=== PATIENT | female | born 1980 | race Caucasian/White ===

== ENCOUNTER 2024-10-15 17:00 | Emergency (ER) | payer BC, SELFPAY ==
--- OUTSIDE RECORDS SUMMARY | 2020-11-19 10:00 | XMS_ITS | Encounter Summary ---
Author Organization [employer] Address [address] [place] [address] Care Team Providers Care Generator Switchboard Operator Name Role Phone Cyndie Eisenberg APRN, CNP Primary Care Provi cele Encounter Details Date Type Department Care Team (Latest Contact Info) Description 11/19/2020 10:00 AM CDT Hospital Encounter [facility] Outpatient Infusion & Procedures [address] [place] [id number] Cyndie Eisenberg APRN, CNP [address] [place] [id number] Encounter for central line care (Primary Dx); Invasive ductal carcinoma of breast, right ([facility]C) Social History Tobacco Use Types Packs/Day Years Used Date Smoking Tobacco: Former Cigarettes Q uit: 09/19/2009 Smokeless Tobacco: Never Alcohol Use Standard Drinks/Week Comments Not Currently 0 (1 standard drink = 0.6 oz pur e alcohol) rarely PHQ-2 Answer Date Recorded PHQ-2 Score 0 04/08/2022 Comments No Sex and Gender Information Value Date Recorded Sex Assigned at Female 12/23/2022 12:21 PM CDT Legal Sex Female 8:59 AM CDT Gender Identity Female 12/23/2022 12:21 PM CDT Sexual Orientation Not on file Occupation Industry Job Start Date Job End Date Not on file Not on file Not on file Not on file documented as of this encounter Last Filed Vital Signs Vital Sign Reading Time Taken Comments Blood Pressure 124/85 11/19/2020 10:53 AM CDT Pulse 73 11/19/2020 10:53 AM CDT Temperature 36.9 C (98.5 F) 11/19/2020 10:53 AM CDT Respiratory Rate 16 11/19/2020 10:53 AM CDT Oxygen Saturation 99% 11/19/2020 10:53 AM CDT Inhaled Oxygen Concentration - - Weight - - Height - - Body Mass Index - - documented in this encounter Plan of Treatment Not on file documented as of this encounter Visit Diagnoses Diagnosis Encounter for central line care- Primary Fitting and adjustment of vascular catheter Invasive ductal carcinoma of breast, right ([facility]) documented in this encounter Additional Health Concerns Infection Onset Date Last Indicated Resolved Time R/O COVID19 03/29/2021 03/29/2021 03/29/2021 2:53 PM CDT documented as of this encounter Care Teams Generator Switchboard Operator Relationship Specialty Start Date End Date Cyndie Eisenberg APRN, HYDRAULIC [employer]OCK DRILL OPERATOR [address] [place] [address] PCP - General Nurse Practitioner 09/10/19 05/28/21 documented as of this encounter
--- OUTSIDE RECORDS SUMMARY | 2020-11-19 10:00 | XMS_ITS | Encounter Summary ---
Author Organization [email or web address] Address [address] [place] [address] Care Team Providers Care Local Area Network Systems Adminstrator Name Role Phone Cyndie Eisenberg APRN, CNP Primary Care Provi cele Encounter Details Date Type Department Care Team (Latest Contact Info) Description 11/19/2020 10:00 AM CDT Hospital Encounter [facility] Outpatient Infusion & Procedures [address] [place] [phone] Cyndie Eisenberg APRN, CNP [address] [place] [address] Encounter for central line care (Primary Dx); [...] documented as of this encounter Care Teams Local Area Network Systems Adminstrator Relationship Specialty Start Date End Date Cyndie Eisenberg APRN, LOAN ADVISER [address] [place] [id number] PCP - General Nurse Practitioner 09/10/19 05/28/21 documented as of this encounter
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
--- OUTSIDE RECORDS SUMMARY | 2024-09-12 09:15 | XMS_ITS | Encounter Summary ---
Author Organization [facility] Address [address] [place] [address] Care Team Providers Care Night Time Babysitter Name Role Phone Cyndie Eisenberg NP Primary Care Provider + Rodney Natarajan MD Unavailable [phone] Luna Simons MD Unavailable Caroline Duque RN Unavailable [phone] Martha White MD Unavailable Ankita Park MD Unavailable [phone] Batool Atkinson PhD LP Unavailable Prisca Miller MD Unavailable Jennyfer Steele APRN SPINNER IRON Unavailable [phone] Jennyfer Steele APRN SPINNER IRON Unavailable [phone] [facility] Unavailabl e Luna Simons MD Unavailable Reason for Visit * Diagnostic Imaging Mammo (Routine) - Pending Review Specialty Diagnoses / Procedures Referred By Gus t Referred To Contact Radiology. Diagnoses Invasive ductal carcinoma of breast, right (H) Procedures MA Screen Bilateral w/Ashu Luna Simons MD [address] [facility] [address] [place] [address] Phone: tel: fax: Referral ID Status Reason Start Date Expiration Date V isits Requested Visits Authorized [id number] Pending Review 04/01/2024 04/01/2025 1 1 Encounter Details Date Type Department Care Team (Latest Contact Info) Description 09/12/2024 9:15 AM CDT Ancillary Procedure [facility] [place] [address] [facility] [address] 2nd [place] [address] Luna Simons MD [address] [place] [address] 480 [place] [address] Invasive ductal carcinoma of breast, right (H) Social History Tobacco Use Types Packs/Day Years [...] often do you attend chur ch or church services? More than 4 times per year 06/22/2023 Do you belong to any clubs o r organizations such as baptism groups, unions, fraternal or athletic groups, or [...] Answer Date Recorded PHQ-2 Score 0 09/10/2024 [place] of Occupat ional Health - Occupational Stress [...] Answer Date Recorded Do you have housing? (Housin g is defined as stable permanent housing and does not include staying outside in a car, in a tent, in an abandoned building, in an overnight longterm, or couch-surfing.) Yes 06/22/2023 Are you worried [...] on file documented as of this encounter Plan of Treatment Upcoming Encounters Date Type Department Care Team (Late st Contact Info) Description 09/15/2025 9:15 AM CDT Ancillary Procedure [facility] [place] [address] [place] [address] 2nd [place] [phone] Luna Simons MD [address] [place] [address] [id number] 09/15/2025 10:00 AM CDT Oncology Visit [facility] 9 [place] [phone] Luna Simons MD [address] [place] [id number] documented as of this encounter Procedures Procedure Name Priority Date/Time Associated Diagnosis Comments MA SCREENING BILATERAL W/ ASHU Routine 09/12/2024 9:31 AM CDT Invasive ductal carcinoma of breast, right (H) documented in this encounter Results * MA Screen Bilateral w/Ashu (09/12/2024 9:31 AM CDT) Anatomical Region Laterality Modality Breast Bilateral Mammography Impressions 09/12/2024 10:36 AM CDT IMPRESSION: ACR BI-RADS Category 1: Negative BREAST CANCER SCREENING RECOMMENDATION: Routine yearly mammography beginning at age 40 or as discussed with your provider. The results and recommendations of this examination will be communicated to the patient. Rachelle Unger MD Narrative 09/12/2024 10:36 AM CDT BILATERAL FULL FIELD DIGITAL SCREENING MAMMOGRAM WITH TOMOSYNTHESIS Performed on: 09/12/24 Compared to: 09/04/2023, 07/11/2022, 06/24/2021, and 06/03/2020 Technique: This study was evaluated with the assistance of Computer-Aided Detection. Breast Tomosynthesis was used in interpretation. Findings: The breasts are heterogeneously dense, which may obscure small masses. There is no radiographic evidence of malignancy. Luna Simons MD IMG MAMMOGRAPHY ORDERABLES Final Result documented in this encounter Visit Diagnoses Diagnosis Invasive ductal carcinoma of breast, right (H) documented in this encounter Additional Health Concerns Assessment Noted Time PHQ-9 Depression Total Score: 0 09/11/19 25 9:09 AM CDT documented as of this encounter Care Teams Night Time Babysitter Relationship Specialty Start Date End Date Cyndie Eisenberg NP [address] [place] [address] PCP - General 09/25/19 Rodney Natarajan MD 420 [facility] 195 [place], [place] 50[address] General Surgery 09/25/19 Luna Simons MD 420 [facility] 480 [place], [place] 330305 Hematology 09/25/19 Caroline Duque, RN Specialty Gum Machine Operator Breast Oncology 09/30/19 Mratha White MD [address] [place], [place] [phone] supervisor fish processing 11/01/19 Ankita Park MD 2450 [facility] 2[address]ST [place] [address] supervisor fish processing 06/10/20 Batool Atkinson, PhD LP 2450 [facility] [address] [place] [address] Psychologist Licensed Mental Health 04/01/22 Prisca Miller MD 516 [facility] 295 [place], [place] 4449[address] Resident Neurology 02/10/23 Jennyfer Steele APRN [employer] [address] [place] [address] [address] [place], [place] 8[address] Nurse Practitioner Psychiatry 02/23/23 Jennyfer Steele APRN [employer] [address] [place] [address] [address] [place], [place] 7[address]114 Assigned Behavioral Health Provider 06/30/23 [facility] [id number] [place] [address] Assigned PCP 09/19/23 Luna Simons MD [address] [place] [address] 480 [place], [place] [address]39[address] Assigned Cancer Care Provider 04/20/24 documented as of this encounter
--- OUTSIDE RECORDS SUMMARY | 2024-09-12 09:15 | XMS_ITS | Encounter Summary ---
Author Organization [facility] Address [address] [place] [address] Care Team Providers Care Stone Unloader Name Role Phone Cyndie Eisenberg NP Primary Care Provider + Rodney Natarajan MD Unavailable [phone] Luna Simons MD Unavailable Caroline Duque RN Unavailable [phone] Martha White MD Unavailable Ankita Park MD Unavailable [phone] Batool Atkinson PhD LP Unavailable Prisca Miller MD Unavailable [phone] Jennyfer Steele APRN BELLPERSON Unavailable [phone] Jennyfer Steele APRN BELLPERSON Unavailable [phone] [facility] Unavailabl e Luna Simons MD Unavailable Reason for Visit * Diagnostic Imaging Mammo (Routine) - Pending Review Specialty Diagnoses / Procedures Referred By Gus t Referred To Contact Radiology. Diagnoses Invasive ductal carcinoma of breast, right (H) Procedures MA Screen Bilateral w/Ashu Luna Simons MD [address] [facility] 480 [place] [address] Phone: tel: fax: Referral ID Status Reason Start Date Expiration Date V isits Requested Visits Authorized [id number] Pending Review 04/01/2024 04/01/2025 1 1 Encounter Details Date Type Department Care Team (Latest Contact Info) Description 09/12/2024 9:15 AM CDT Ancillary Procedure [facility] Imaging [place] [address] [facility] [address] 2nd [place] [address] Luna Simons MD [address] [place] [address] 480 [place] [address] Invasive ductal carcinoma of breast, [...] often do you attend chur ch or moravian services? More than 4 times per year 06/22/2023 Do you belong to any clubs o r organizations such as caodaism groups, unions, fraternal or athletic groups, or [...] Answer Date Recorded PHQ-2 Score 0 09/10/2024 [place] of Occupat ional Health - Occupational Stress [...] in an abandoned building, in an overnight snf, or couch-surfing.) Yes 06/22/2023 Are you worried [...] Description 09/15/2025 9:15 AM CDT Ancillary Procedure [facility] [place] [address] [place] [address] 2nd [place] [phone] Luna Simons MD [address] [place] [address] 09/15/2025 10:00 AM CDT Oncology Visit [facility] 9 [place] [phone] Luna Simons MD [address] [place] [address] documented as of this encounter Procedures Procedure [...] documented as of this encounter Care Teams Stone Unloader Relationship Specialty Start Date End Date Cyndie Eisenberg NP [address] [place] [address] PCP - General 09/25/19 Rodney Natarajan MD 420 [facility] 195 [place], [place] [address] General Surgery 09/25/19 Luna Simons MD 420 [facility] 480 [place], [place] [address] Hematology 09/25/19 Caroline Duque, RN Specialty Comb Fixer Breast Oncology 09/30/19 Martha White MD [address] [place], [place] [phone] blueprint cutter 11/01/19 Ankita Park MD 2450 [facility] [address] [address] blueprint cutter 06/10/20 Batool Atkinson, PhD LP 2450 [facility] [address] [place] [address] Psychologist Licensed Mental Health 04/01/22 Prisca Miller MD 516 [facility] 295 [place], [place] [address] Resident Neurology 02/10/23 Jennyfer Steele APRN BELLPERSON [address] [place] [address] [address] [place], [place] 501[address] Nurse Practitioner Psychiatry 02/23/23 Jennyfer Steele APRN BELLPERSON [address] [place] [address] [address] [place], [place] 812294 Assigned Behavioral Health Provider 06/30/23 [facility] [address] [place] [address] Assigned PCP 09/19/23 Luna Simons MD [address] [place] [address] 480 [place], [place] 8906[address] Assigned Cancer Care Provider 04/20/24 documented as of this encounter
--- OUTSIDE RECORDS SUMMARY | 2024-09-12 10:30 | XMS_ITS | Encounter Summary ---
Author Organization [facility] Address [address] [place] [address] Care Team Providers Care High Lift Operator Name Role Phone Cyndie Eisenberg NP Primary Care Provider + Rodney Natarajan MD Unavailable [phone] Luna Simons MD Unavailable [phone] Caroline Duque RN Unavailable [phone] Martha White MD Unavailable Ankita Park MD Unavailable [phone] Batool Atkinson PhD LP Unavailable Prisca Miller MD Unavailable [phone] Jennyfer Steele APRN VENEER DEPARTMENT MANAGER Unavailable [phone] Jennyfer Steele APRN VENEER DEPARTMENT MANAGER Unavailable [phone] [facility] Unavailabl e Luna Simons MD Unavailable [phone] Reason for Referral * Diagnostic Imaging Mammo (Routine) - Pending Review Specialty Diagnoses / Procedures Referred By Gus moreno Referred To Contact Radiology. Diagnoses Invasive ductal carcinoma of breast, right (H) Visit for screening mammogram Procedures MA Screening Bilateral w/ Ashu Luna Simons MD [address] [facility] [address] [place] [address] Phone: tel: fax: Referral ID Status Reason Start Date Expiration Date V isits Requested Visits Authorized [id number] Pending Review 09/12/2024 09/12/2025 1 1 Reason for Visit * Reason Comments Oncology Clinic Visit Invasive ductal ca rcinoma of breast, right Encounter Details Date Type Department Care Team (Late st Contact Info) Description 09/12/2024 10:30 AM CDT Oncology Visit [facility] [address] [place] [address] Luna Simons MD [address] [address] Invasive ductal carcinoma of breast, right (H) (Primary Dx); Visit for screening mammogram; Fatigue, unspecified type; Menopausal syndrome (hot flashes) Social History Tobacco Use Types Packs/Day Years [...] 06/22/2023 How often do you attend chur or yazidism services? More than 4 times per year 06/22/2023 Do you belong to any clubs o r organizations such as confucianism groups, unions, fraternal or athletic groups, or [...] Answer Date Recorded PHQ-2 Score 0 09/10/2024 [facility] Occupat ional Health - Occupational Stress [...] Sign Reading Time Taken Comments Blood Pressure 140/85 09/12/2024 11:03 AM CDT Pulse 84 09/12/2024 11:03 AM CDT Temperature 36.6 C (97.8 F) 09/12/2024 11:03 AM CDT Respiratory Rate 16 09/12/2024 11:0 3 AM CDT Oxygen Saturation 98% 09/12/2024 11: 03 AM CDT Inhaled Oxygen Concentration - - Weight 61.6 kg (135 lb 12.8 oz) 025 11:03 AM CDT Height - - Body Mass Index 24.06 04/01/2024 1:36 PM BRANCH OFFICE MANAGER documented in this encounter Progress Notes * Luna Simons MD - 09/12/2024 10:30 AM CDT Oncology outpatient clinic visit : Sep 12, 2024 Reason for Visit: follow up right breast cancer. Oncology HPI: Anjelica Matthew is a 43 year old premenopausal woman with T2N0, stage 2A right breast cancer ER + CA + Her2 +. She received 12 weeks of neoadjuvant Taxol, Herceptin, and Perjeta (started 10/01/19). Sheunderwent a lumpectomy and sentinel lymph node biopsy on 01/21/20. Pathology revealed no invasive disease, DCIS Grade 3. She completed adjuvant herceptin. She had a BSO and is on no other endocrine therapy after many conversations reviewing the pros and cons. Treatment Summary: Radiation Oncology - Course: 1 Protocol: Treatment Site Current Dose Modality From To Elapsed Days Fx. 1 R Breast 4,240 cGy 6X/10X 03/05/2020 03/27/2020 22 16 1 R Breast Boost 1,250 cGy 6X/10X 03/30/2020 04/03/2020 4 5 Dose per Fraction: 265 cGy for R beast; 250 cGy for boost Total Dose: 5490 cGy Interval history: Anjelica returns today for follow up. She is going through a divorce; it has been very challenging. She continues to be very busy as a mom. Her kids are growing and thriving. She has been working with a counselor given the stress of her divorce and her cancer diagnosis. Shedid DBT for prior trauma. All of this helps her a lot. She has continued with it as has her children. The counselor is carlos based, and this is helping a lot for her. She is mentally doing well, and is thrilled she has had no measurable cancer. She has no nodules or masses. No axillary adenopathy. She has no fatigue. She feels well otherwise. Weight stable. Follows Dr. Steele closely. She is doing self exams and this is stable. ROS: 10 point ROS neg other than the symptoms noted above in the HPI. No Known Allergies Exam: Last menstrual period 04/23/2020. GENERAL: alert and no distress EYES: Eyes grossly normal to inspection. No discharge or erythema, or obvious scleral/conjunctival abnormalities. RESP: No audible wheeze, cough, or visible cyanosis. CV: rrr Abd: soft, nt nd _ bs No axillary adenopathy SKIN: Visible skin clear. No significant rash, abnormal pigmentation or lesions. NEURO: Cranial nerves grossly intact. Mentation and speech appropriate for age. PSYCH: Appropriate affect, tone, and pace of words Imaging: Breast Mammogram 09/12/2024 benign Assessment/plan: #Breast Cancer - - She is close to 5 years out since lumpectomy and completed adjuvant radiation and herceptin. She has no signs or symptoms of recurrence on exam today. Screening mammogram in August 2024 benign. I discussed she has no s/s of recurrence today. She remains on active surveillance with annual H&P and mammograms Mood is stable. She will continue to follow with her psychologist and psychiatrist. She is on Adderall and Cymbalta. Hot flashes Stable Follow up -RTC in 12 months ; Repeat screening mammogram in August 2025. Luna Simons MD documented in this encounter Nursing Notes * Mariposa Linares - 09/12/2024 10:30 AM CDT Oncology Rooming Note September 12, 2024 11:07 AM Anjelica Matthew is a 43 year old female who presents for: Chief Complaint Patient presents with Oncology Clinic Visit Invasive ductal carcinoma of breast, right Initial Vitals: BP (!) 140/85 (BP Location: Right arm, Patient Position: Sitting, Cuff Size: Adult Regular) Pulse 84 Temp 97.8 ??F (36.6 ??C) (Oral) Resp 16 Wt 61.6 kg (135 lb 12.8 oz) LMP 04/23/2020 SpO2 98% BMI 24.06 kg/m?? Estimated body mass index is 24.06 kg/m?? as calculated from the following: Height as of 04/01/24: 1.6 m (5' 3). Weight as of this encounter: 61.6 kg (135 lb 12.8 oz). Body surface area is 1.65 meters squared. No Pain (0) Comment: Data Unavailable Patient's last menstrual period was 04/23/2020. Allergies reviewed: Yes Medications reviewed: Yes Medications: Medication refills not needed today. Pharmacy name entered into Snapsort: [id number] [place], [place] - [address] [facility] [place] - [address] [facility] Frailty Screening: Is the patient here for a new oncology consult visit in cancer care? 2. No PHQ9: Did this patient require a PHQ9?: No Clinical concerns: none Mariposa Linares documented in this encounter Plan of Treatment Upcoming Encounters Date Type Department Care Team (Late st Contact Info) Description 09/15/2025 9:15 AM CDT Ancillary Procedure [facility] Breast Center Imaging [address] 2nd [place] [address] Luna Simons MD [address] [place] [address] [id number] 09/15/2025 10:00 AM CDT Oncology Visit [facility] 9 [place] [phone] Luna Simons MD 420 [facility] 480 [place], [place] 928595 Scheduled Orders Name Type Priority Associated Diagnoses Orde r Schedule MA Screening Bilateral w/ Ashu Imaging Routine Invasive ductal carcinoma of breast, right (H) Visit for screening mammogram Expected: 09/12/2025 (Approximate), Expires: 09/12/2025 documented as of this encounter Visit Diagnoses Diagnosis Invasive ductal carcinoma of breast, right (H)- Primary Visit for screening mammogram Other screening mammogram Fatigue, unspecified type Menopausal syndrome (hot flashes) Symptomatic menopausal or female climacteric states documented in this encounter Additional Health Concerns Assessment Noted Time PHQ-9 Depression Total Score: 0 09/11/19 25 9:09 AM CDT documented as of this encounter Care Teams High Lift Operator Relationship Specialty Start Date End Date Cyndie Eisenberg NP 100 [place] [address] PCP - General 09/25/19 Rodney Natarajan MD 420 [facility] 195 [place], [place] [phone] General Surgery 09/25/19 Luna Simons MD 420 [facility] 480 [place], [place] 9[address] Hematology 09/25/19 Caroline Duque, RN Specialty Molder Foam Rubber Breast Oncology 09/30/19 Martha White MD [facility] [address] [place], [place] [address] textile clothing and footwear mechanic 11/01/19 Ankita Park MD [address] [place] [address] [phone] textile clothing and footwear mechanic 06/10/20 [place] [address] [place], [place] [address] [place] [address] Psychologist Licensed Mental Health 04/01/22 Prisca Miller MD 516 [facility] 295 [place], [place] 7[address]35 Resident Neurology 02/10/23 Jennyfer Steele APRN VENEER DEPARTMENT MANAGER [address] [place] [address] Nurse Practitioner Psychiatry 02/23/23 Jennyfer Steele APRN VENEER DEPARTMENT MANAGER [address] [place] [address] [phone] Assigned Behavioral Health Provider 06/30/23 [facility] [id number] [place] [address] Assigned PCP 09/19/23 Luna Simons MD 420 [facility] 480 [place], [place] 926865 Assigned Cancer Care Provider 04/20/24 documented as of this encounter
--- OUTSIDE RECORDS SUMMARY | 2024-09-12 10:30 | XMS_ITS | Encounter Summary ---
Author Organization [facility] Address [address] [place] [address] Care Team Providers Care Hazardous Materials Handler Name Role Phone Cyndie Eisenberg NP Primary Care Provider + Rodney Natarajan MD Unavailable [phone] Luna Simons MD Unavailable Caroline Duque RN Unavailable [phone] Martha White MD Unavailable Ankita Park MD Unavailable Batool Atkinson PhD LP Unavailable Prisca Miller MD Unavailable Jennyfer Steele APRN HEALTH SERVICE COORDINATOR Unavailable [phone] Jennyfer Steele APRN HEALTH SERVICE COORDINATOR Unavailable [phone] [facility] Unavailabl e Luna Simons MD Unavailable [phone] Reason for Referral * Diagnostic Imaging Mammo (Routine) - Pending Review Specialty Diagnoses / Procedures Referred By Gus moreno Referred To Contact Radiology. Diagnoses Invasive ductal carcinoma of breast, right (H) Visit for screening mammogram Procedures MA Screening Bilateral w/ Ashu Luna Simons MD [address] [facility] [address] [place] [address] Phone: tel: fax: Referral ID Status Reason Start Date Expiration Date V isits Requested Visits Authorized [id number] Pending Review 09/12/2024 09/12/2025 1 1 Reason for Visit * Reason Comments Oncology Clinic Visit Invasive ductal ca rcinoma of breast, right Encounter Details Date Type Department Care Team (Late st Contact Info) Description 09/12/2024 10:30 AM CDT Oncology Visit [facility] [address] [place] [address] Luna Simons MD [address] [address] Invasive ductal carcinoma of breast, [...] How often do you attend chur or yazidi services? More than 4 times per year 06/22/2023 Do you belong to any clubs o r organizations such as baptist groups, unions, fraternal or athletic groups, or [...] Answer Date Recorded PHQ-2 Score 0 09/10/2024 [facility] of Occupat ional Health - Occupational [...] Body Mass Index 24.06 04/01/2024 1:36 PM DIGITAL ADVERTISING ANALYST documented in this encounter Progress Notes * Luna Simons MD - 09/12/2024 10:30 AM CDT Oncology outpatient clinic visit : Sep 12, 2024 Reason for Visit: follow up right breast cancer. Oncology HPI: Anjelica Matthew is a 43 year old premenopausal woman with T2N0, stage 2A right breast cancer ER + SC + Her2 +. She received 12 weeks [...] not needed today. Pharmacy name entered into N[employer] Discovery: [id number] - [place], [place] - [address] [facility] [place], [place] - [address] [facility] Frailty Screening: Is the patient here for a new oncology consult visit in cancer care? 2. No PHQ9: Did this patient require a PHQ9?: No Clinical concerns: none Mariposa Linares documented in this encounter Plan of Treatment Upcoming Encounters Date Type Department Care Team (Late st Contact Info) Description 09/15/2025 9:15 AM CDT Ancillary Procedure [facility] Breast Center Imaging [address] 2nd [place] [address] Luna Simons MD [address] [place] [address] [phone] 09/15/2025 10:00 AM CDT Oncology Visit [facility] 9 [place] [phone] Luna Simons MD 420 [facility] 480 [place], [place] 39[address]95 Scheduled Orders Name Type Priority Associated Diagnoses [...] documented as of this encounter Care Teams Hazardous Materials Handler Relationship Specialty Start Date End Date Cyndie Eisenberg NP 100 [place] [address] PCP - General 09/25/19 Rodney Natarajan MD 420 [facility] 195 [place], [place] 546025 General Surgery 09/25/19 Luna Simons MD 420 [facility] [address] [place], [place] 929765 Hematology 09/25/19 Caroline Duque, RN Specialty Optical Mechanic Apprentice Breast Oncology 09/30/19 Martha White MD [facility] [address] [place], [place] 37[address]34 pharmaceutical compounding supervisor 11/01/19 Ankita Park MD [address] [place] [address] [phone] pharmaceutical compounding supervisor 06/10/20 [place] [address] [place], [place] 53[address] [place] [address] Psychologist Licensed Mental Health 04/01/22 Prisca Miller MD 516 [facility] 295 [place], [place] [address]195 Resident Neurology 02/10/23 Jennyfer Steele APRN HEALTH SERVICE COORDINATOR [address] [place] [address] Nurse Practitioner Psychiatry 02/23/23 Jennyfer Steele APRN HEALTH SERVICE COORDINATOR [address] [place] [address] 394954 Assigned Behavioral Health Provider 06/30/23 [facility] [address] [place] [address] Assigned PCP 09/19/23 Luna Simons MD 420 [facility] [address] [place], [place] [address] Assigned Cancer Care Provider 04/20/24 documented as of this encounter
--- OUTSIDE RECORDS SUMMARY | 2024-10-15 17:05 | XMS_ITS | Encounter Summary ---
Author Organization [facility] Address [address] [place] [address] Care Team Providers Care Mains And Service Supervisor Name Role Phone Cyndie Eisenberg NP Primary Care Provider + Rodney Natarajan MD Unavailable [phone] Luna Simons MD Unavailable Caroline Duque RN Unavailable [phone] Martha White MD Unavailable [phone] Rodney Natarajan MD Unavailable [phone] Ankita Park MD Unavailable [phone] Ankita Park MD Unavailable [phone] Jose Zaragoza NP Unavailable Mio Mclean MD Unavailable [phone] Luna Simons MD Unavailable [phone] Nadja Hagen MD Unavailable [phone] Batool Atkinson PhD LP Unavailable [phone] Prisca Miller MD Unavailable [phone] Jennyfer Steele APRN INDUSTRIAL PHARMACIST Unavailable [phone] Jennyfer Steele APRN INDUSTRIAL PHARMACIST Unavailable + Sadaf Apple NP Unavailable Unavailable [facility] Unavailabl e Yamel Saha PA-C Unavailable Luna Simons MD Unavailable Encounter Details Date Type Department Care Team (Late st Contact Info) Description 08/03/2021 MyC Medical Advice [facility] Mental Health & Addiction [address] [address] Ankita Park MD 2120 [facility] [place] [address] Anxiety (Primary Dx) Social History Tobacco Use Types Packs/Day Years Used Date Smoking Tobacco: Never Cigarettes Smokeless Tobacco: Never Alcohol Use Standard Drinks/Week Comments Yes 0 (1 standard drink = 0.6 oz pur e alcohol) rare PHQ-2 Answer Date Recorded PHQ-2 Score 4 07/13/2021 Comments No Sex and Gender Information Value Date Recorded Sex Assigned at Not on file Legal Sex Female 9:05 AM CDT Gender Identity Not on file Sexual Orientation Not on file documented as of this encounter Plan of Treatment Upcoming Encounters Date Type Department Care Team (Late st Contact Info) Description 09/15/2025 9:15 AM CDT Ancillary Procedure [facility] Breast Center Imaging [address] 2nd [place] [phone] Luna Simons MD [address] [place] [address] 09/15/2025 10:00 AM CDT [facility] [address] [place] [address] Luna Simons MD [address] [place] [address] [phone] documented as of this encounter Visit Diagnoses Diagnosis Anxiety- Primary Anxiety state, unspecified documented in this encounter Additional Health Concerns Infection Onset Date Last Indicated Resolved Time Rule Out COVID-19 01/24/2023 01/24/2023 01/24/2023 10:32 PM CDT Assessment Noted Time PHQ-9 Depression Total Score: 12 022 8:00 AM OUTPLACEMENT CONSULTANT documented as of this encounter Care Teams Mains And Service Supervisor Relationship Specialty Start Date End Date Cyndie Eisenberg SOIL SCIENCE PROFESSOR [address] [place] [address] PCP - General 09/25/19 Rodney Natarajan MD 420 [facility] 195 [place], [place] 523295 General Surgery 09/25/19 Luna Simons MD 420 [facility] 480 [place], [place] 76[address]95 Hematology 09/25/19 Caroline Duque, ASHLIE Specialty Lan Support Specialist Breast Oncology 09/30/19 Martha White MD [facility] [address] [place], [place] [phone] editing clerk 11/01/19 Rodney Natarajan MD [address] 210635 Assigned Surgical Provider 03/20/20 08/07/21 Ankita Park MD [facility] [address] [address] Assigned Behavioral Health Provider 05/03/20 06/29/23 Ankita Park MD [facility] [address] [address] editing clerk 06/10/20 Jose Zaragoza, SOIL SCIENCE PROFESSOR [address] [place], [place] 927945 Assigned Heart and Vascular Provider 11/08/20 02/04/22 Mio Mclean MD 420 [facility] 494 [place], [place] [address] Assigned Cancer Care Provider 06/27/21 09/11/21 Luna Simons MD 420 [facility] 480 [place], [place] [address]455 Assigned Cancer Care Provider 09/12/21 01/18/24 Nadja Hagen MD [address] [place] [address] [address] 2, [address] [place], [place] 732254 Resident Psychiatry 04/01/22 05/13/24 Batool Atkinson, PhD LP 2450 [facility] [address] [place], [place] 852784 Psychologist Licensed Mental Health 04/01/22 Prisca Miller MD 6 [facility] 295 [place], [place] 8[address]395 Resident Neurology 02/10/23 Jennyfer Steele APRN INDUSTRIAL PHARMACIST [facility] S [address] [place] [address] 544604 Nurse Practitioner Psychiatry 02/23/23 Jennyfer Steele APRN INDUSTRIAL PHARMACIST [facility] [address] [place] [address] 313944 Assigned Behavioral Health Provider 06/30/23 Sadaf Apple NP Assigned PCP 07/21/23 09/18/23 [facility] [address] [place] [address] Assigned PCP 09/19/23 Yamel Saha PA-C [address] [place] [address] 973725 Assigned Cancer Care Provider 01/19/24 04/19/24 Luna Simons MD [address] [place] [address] 579265 Assigned Cancer Care Provider 04/20/24 documented as of this encounter
--- OUTSIDE RECORDS SUMMARY | 2024-10-15 17:05 | XMS_ITS | Encounter Summary ---
Author Organization [facility] Address [address] [place] [address] Care Team Providers Care Senior Interactive Producer Name Role Phone Cyndie Eisenberg NP Primary Care Provider + Rodney Natarajan MD Unavailable [phone] Luna Simons MD Unavailable [phone] Caroline Duque RN Unavailable [phone] Martha White MD Unavailable Ankita Park MD Unavailable [phone] Batool Atkinson PhD LP Unavailable Prisca Miller MD Unavailable Jennyfer Steele APRN SONOGRAPHY TECHNICIAN Unavailable [phone] Jennyfer Steele APRN SONOGRAPHY TECHNICIAN Unavailable [phone] [facility] Unavailabl e Luna Simons MD Unavailable [phone] Encounter Details Date Type Department Care Team (Late st Contact Info) Description 09/17/2024 Cortney Loomis [facility] Mental Health & Addiction [address] [address] Talita Bradshaw Social History Tobacco Use Types Packs/Day Years [...] How often do you attend chur or yarsani services? More than 4 times per year 06/22/2023 Do you belong to any clubs o r organizations such as mormon groups, unions, fraternal or athletic groups, or [...] Answer Date Recorded PHQ-2 Score 0 09/10/2024 [facility] of Occupat ional Health - Occupational [...] Date Recorded Do you have housing? (Gurpreet funk is defined as stable permanent housing and does not include staying outside in a car, in a tent, in an abandoned building, in an overnight senior care, or couch-surfing.) Yes 06/22/2023 Are you worried [...] Description 09/15/2025 9:15 AM CDT Ancillary Procedure [facility] Breast Center Imaging [place] [phone] [facility] 2nd [place] [address] Luna Simons MD [address] [place] [address] 09/15/2025 10:00 AM CDT Oncology Visit [facility] 909 [place] [address] Luna Simons MD 420 [facility] 480 [place], [place] 995735 documented as of this encounter Visit Diagnoses Not on filedocumented in this encounter Additional Health Concerns Assessment Noted Time PHQ-9 Depression Total Score: 0 09/11/19 25 9:09 AM CDT documented as of this encounter Care Teams Senior Interactive Producer Relationship Specialty Start Date End Date Cyndie Eisenberg NP [address] [place] [address] PCP - General 09/25/19 Rodney Natarajan MD 420 [facility] 195 [place], [place] 98[address] General Surgery 09/25/19 Luna Simons MD 420 [facility] 480 [place], [place] 792065 Hematology 09/25/19 Caroline Duque, RN Specialty Content Development Manager Breast Oncology 09/30/19 Martha White MD [address] [place], [place] [address]34 noc engineer 11/01/19 Ankita Park MD 2450 [facility] [address] [phone] noc engineer 06/10/20 Batool Atkinson, PhD LP 2450 [facility] [address] [place] [address] Psychologist Licensed Mental Health 04/01/22 Prisca Miller MD 516 [facility] 295 [place] [address] Resident Neurology 02/10/23 Jennyfer Steele APRN SONOGRAPHY TECHNICIAN [address] [place] [address] [address]275 [place] [address] Nurse Practitioner Psychiatry 02/23/23 Jennyfer Steele APRN SONOGRAPHY TECHNICIAN [facility]2 [address] [place] [address] [address] [place], [place] [address] Assigned Behavioral Health Provider 06/30/23 [facility] [id number] [place] [address] Assigned PCP 09/19/23 Luna Simons MD [address] [place] [address] 480 [place], [place] 9[address]35 Assigned Cancer Care Provider 04/20/24 documented as of this encounter
--- OUTSIDE RECORDS SUMMARY | 2024-10-15 17:05 | XMS_ITS | Encounter Summary ---
Author Organization [place] Address [address] [place] [address] Care Team Providers Care Body Repairer Name Role Phone Cyndie Eisenberg NP Primary Care Provider + Rodney Natarajan MD Unavailable Luna Simons MD Unavailable [phone] Caroline Duque RN Unavailable [phone] Martha White MD Unavailable Ankita Park MD Unavailable [phone] Luna Simons MD Unavailable Nadja Hagen MD Unavailable [phone] Batool Atkinson PhD LP Unavailable Prisca Miller MD Unavailable [phone] Jennyfer Steele APRN SANITATION ASSOCIATE Unavailable +[phone] Jennyfer Steele APRN SANITATION ASSOCIATE Unavailable [phone] Sadaf Apple NP Unavailable Unavailable [facility] Unavailabl e Yamel Saha PA-C Unavailable +[phone] Luna Simons MD Unavailable [phone] Encounter Details Date Type Department Care Team (Late st Contact Info) Description 08/11/2023 MyC Medical Advice [facility] Cancer [place] [address] [place] [address] Sandra Modi, ASHLIE Social History Tobacco Use Types Packs/Day Years [...] How often do you attend chur or sabianism services? More than 4 times per year 06/22/2023 Do you belong to any clubs o r organizations such as orthodoxy groups, unions, fraternal or athletic groups, or [...] PHQ-2 Answer Date Recorded PHQ-2 Score 0 06/22/2023 [facility] of Occupat ional Health - Occupational Stress [...] in an abandoned building, in an overnight usp, or couch-surfing.) Yes 06/22/2023 Are you worried [...] Description 09/15/2025 9:15 AM CDT Ancillary Procedure [facility] Breast Center Imaging [place] [address] [facility] [address] 2nd [place] [address] Luna Simons MD [address] [place] [address] 09/15/2025 10:00 AM CDT Oncology Visit [facility] 909 [place] [phone] Luna Simons MD 420 [facility] 480 [place] [address] documented as of this encounter Visit Diagnoses Not on filedocumented in this encounter Additional Health Concerns Assessment Noted Time PHQ-9 Depression Total Score: 0 06/22/19 24 4:03 PM CLIENT CUSTOMER MANAGER documented as of this encounter Care Teams Body Repairer Relationship Specialty Start Date End Date Cyndie Eisenberg RADIO INTERFERENCE TROUBLE SHOOTER [address] [facility] [place] [address] PCP - General 09/25/19 Rodney Natarajan MD 420 [facility] 195 [place], [place] 371025 General Surgery 09/25/19 Luna Simons MD [address] [place] [address] [phone] Hematology 09/25/19 Caroline Duque, RN Specialty Sleever Breast Oncology 09/30/19 Martha White MD [address] [place], [place] [address] infusion nurse 11/01/19 Ankita Park MD [address] [place] [phone] infusion nurse 06/10/20 Luna Simons MD [address] [place] [address] 480 [place] [address] Assigned Cancer Care Provider 09/12/21 01/18/24 Nadja Hagen MD [address] [place] [address] Floor 2, [address] [place] [address] Resident Psychiatry 04/01/22 05/13/24 Batool Atkinson, PhD LP [address] [place] [address] [address] [place], [place] 082324 Psychologist Licensed Mental Health 04/01/22 Prisca Miller MD 6 [facility] 295 [place], [place] 053865 Resident Neurology 02/10/23 Jennyfer Steele APRN SANITATION ASSOCIATE [address] [place] [address], [place] [address] [place], [place] 543744 Nurse Practitioner Psychiatry 02/23/23 Jennyfer Steele APRN SANITATION ASSOCIATE [address] [place] [address] [address] [place] [address] Assigned Behavioral Health Provider 06/30/23 Sadaf Apple NP Assigned PCP 07/21/23 09/18/23 [facility] [address] [place] [address] Assigned PCP 09/19/23 Yamel Saha PA-C [address] [place] [address] 480 [place] [address] Assigned Cancer Care Provider 01/19/24 04/19/24 Luna Simons MD [address] 414445 Assigned Cancer Care Provider 04/20/24 documented as of this encounter
--- OUTSIDE RECORDS SUMMARY | 2024-10-15 17:05 | XMS_ITS | Encounter Summary ---
Author Organization [place] Address [address] [place] [address] Care Team Providers Care Career Transition Specialist Name Role Phone Cyndie Eisenberg NP Primary Care Provider + Rodney Natarajan MD Unavailable [phone] Luna Simons MD Unavailable [phone] Caroline Duque RN Unavailable [phone] Martha White MD Unavailable [phone] Ankita Park MD Unavailable [phone] Ankita Park MD Unavailable [phone] Luna Simons MD Unavailable [phone] Nadja Hagen MD Unavailable [phone] Batool Atkinson PhD LP Unavailable [phone] Prisca Miller MD Unavailable [phone] Jennyfer Steele APRN WOMEN'S MINISTRY DIRECTOR Unavailable +[phone] Jennyfer Steele APRN WOMEN'S MINISTRY DIRECTOR Unavailable + [phone] Sadaf Apple NP Unavailable Unavailable [facility] Unavailabl e Yamel Saha PA-C Unavailable [phone] Luna Simons MD Unavailable [phone] Encounter Details Date Type Department Care Team (Late st Contact Info) Description 04/06/2023 MyC Medical Advice [facility] Mental Health & Addiction [address] [phone] Ankita Park MD [address] [place] [address] Social History Tobacco Use Types Packs/Day Years Used Date Smoking Tobacco: Never Smokeless Tobacco: Never Alcohol Use Standard Drinks/Week Comments Yes 0 (1 standard drink = 0.6 oz pur e alcohol) rare PHQ-2 Answer Date Recorded PHQ-2 Score 0 03/30/2023 Adolescent Education Answer Date Record ed Getting School Help Needed Not on file 02/17 Comments No Sex and Gender Information Value Date Recorded Sex Assigned at Not on file Legal Sex Female 9:05 AM CDT Gender Identity Not on file Sexual Orientation Not on file documented as of this encounter Plan of Treatment Upcoming Encounters Date Type Department Care Team (Late st Contact Info) Description 09/15/2025 9:15 AM CDT Ancillary Procedure [facility] Breast Center Imaging [place] [address] [place] [address] 2nd [place] [address] Luna Simons MD [address] [place] [address] 167[address] 09/15/2025 10:00 AM CDT Oncology Visit [facility] 909 [place] [address] Luna Simons MD [address] [place] [address] 098375 documented as of this encounter Visit Diagnoses Not on filedocumented in this encounter Additional Health Concerns Assessment Noted Time PHQ-9 Depression Total Score: 22 022 3:25 PM PLASTIC TOP ASSEMBLER documented as of this encounter Care Teams Career Transition Specialist Relationship Specialty Start Date End Date Cyndie Eisenberg NP [address] [place] [address] PCP - General 09/25/19 Rodney Natarajan MD 420 [facility] 195 [place] [address] General Surgery 09/25/19 Luna Simons MD 420 [facility] 480 [place] [address] MD Hematology 09/25/19 Caroline Duque, ASHLIE Specialty Finisher Special Stocks Breast Oncology 09/30/19 Martha White MD [address] [place] [address] [place], [place] 254774 airline attendant 11/01/19 Ankita Park MD [address] [place] [address] Assigned Behavioral Health Provider 05/03/20 06/29/23 Ankita Park MD [address] [place] [address] airline attendant 06/10/20 Luna Simons MD [address] [place] [address] 480 [place], [place] 989605 Assigned Cancer Care Provider 09/12/21 01/18/24 Nadja Hagen MD [address] Floor 2, [address] [place], [place] 4367[address] Resident Psychiatry 04/01/22 05/13/24 Batool Atkinson, PhD LP 2450 [facility] [address] [place], [place] 804494 Psychologist Licensed Mental Health 04/01/22 Prisca Miller MD 6 [facility] 295 [place], [place] 8938[address] Resident Neurology 02/10/23 Jennyfer Steele APRN WOMEN'S MINISTRY DIRECTOR [address] [place] [address] [address] [place] [address] Nurse Practitioner Psychiatry 02/23/23 Jennyfer Steele APRN WOMEN'S MINISTRY DIRECTOR [address] [place] [address] Assigned Behavioral Health Provider 06/30/23 Sadaf Apple NP Assigned PCP 07/21/23 09/18/23 [facility] [address] [place] [address] Assigned PCP 09/19/23 Yamel Saha PA-C [address] [place] [address] 480 [place], [place] 647375 Assigned Cancer Care Provider 01/19/24 04/19/24 Luna Simons MD [address] [address] Assigned Cancer Care Provider 04/20/24 documented as of this encounter
--- OUTSIDE RECORDS SUMMARY | 2024-10-15 17:05 | XMS_ITS | Encounter Summary ---
Author Organization [place] Address [address] [place] [address] Care Team Providers Care Science Consultant Name Role Phone Cyndie Eisenberg NP Primary Care Provider + Rodney Natarajan MD Unavailable [phone] Luna Simons MD Unavailable [phone] Caroline Duque RN Unavailable [phone] Martha White MD Unavailable [phone] Ankita Park MD Unavailable [phone] Ankita Park MD Unavailable [phone] Jose Zaragoza NP Unavailable [phone] Luna Simons MD Unavailable Nadja Hagen MD Unavailable [phone] Batool Atkinson PhD LP Unavailable [phone] Prisca Miller MD Unavailable [phone] Jennyfer Steele APRN TELESCOPE REPAIRER Unavailable +[phone] Jennyfer tSeele APRN TELESCOPE REPAIRER Unavailable +[phone] Sadaf Apple NP Unavailable Unavailable [facility] Unavailabl e Yamel Saha PA-C Unavailable [phone] Luna Simons MD Unavailable Reason for Visit * Reason Onset Date Comments Refill Request 09/23/2021 Encounter Details Date Type Department Care Team ([facility] Contact Info) Description 09/23/[address] [facility] Mental Health & Addiction [address] [address] Ankita Park MD [address] [place] [address] [place], [place] [address] Refill Request Social History Tobacco Use Types Packs/Day Years [...] on file documented as of this encounter Miscellaneous Notes * Telephone Encounter - J Luis Hall RN - 09/23/2021 2:41 PM CDT Pt requesting refill of methylphenidate (METADATE CD) 10 MG CR capsule via [employer]. Patient's pharmacy has a prescription effective 09/22/21. [id number] [address] Re Etcher notified patient via [employer] message. documented in this encounter Plan of Treatment Upcoming Encounters Date Type Department Care Team (Late Contact Info) Description 09/15/2025 9:15 AM CDT Ancillary Procedure [facility] Breast Center Imaging [place] 909 [facility] SE 2nd [place] [address] Luna Simons MD 420 [facility] 480 [place] [address] 09/15/2025 10:00 AM CDT Oncology Visit [facility] 909 [place] [phone] Luna Simons MD 420 [facility] 480 [place], [place] 6[address] documented as of this encounter Visit Diagnoses Diagnosis Cognitive complaints Other signs and symptoms involving cognition documented in this encounter Additional Health Concerns Infection Onset Date Last Indicated Resolved Time Rule Out COVID-19 01/24/2023 01/24/2023 01/24/2023 10:32 PM CDT Assessment Noted Time PHQ-9 Depression Total Score: 12 022 8:00 AM FROG FARMER documented as of this encounter Care Teams Science Consultant Relationship Specialty Start Date End Date Cyndie Eisenberg NP 100 [place] [address] PCP - General 09/25/19 Rodney Natarajan MD [address] [place] [address] 195 [place], [place] 6[address] General Surgery 09/25/19 Luna Simons MD 420 [facility] 480 [place], [place] 2[address] Hematology 09/25/19 Caroline Duque, RN Specialty Hammersmith Helper Breast Oncology 09/30/19 aMrtha White MD [facility] [address] [place] [address] manager user experience 11/01/19 Ankita Park MD [address] [place] [phone] Assigned Behavioral Health Provider 05/03/20 06/29/23 Ankita Park MD 2450 [facility] 2[place] [phone] manager user experience 06/10/20 Jose Zaragoza, BOOK CANVASSER [address] [facility] [place] [address] Assigned Heart and Vascular Provider 11/08/20 02/04/22 Luna Simons MD [address] [place] [address] 480 [place], [place] 17364[address] Assigned Cancer Care Provider 09/12/21 01/18/24 Nadja Hagen MD [address] [place] [address] Floor 2, [address] [place], [place] 101[address] Resident Psychiatry 04/01/22 05/13/24 Batool Atkinson, PhD LP [facility]0 [facility] [address] [place], [place] 9[address] Psychologist Licensed Mental Health 04/01/22 Prisca Miller MD 6 [facility] 295 [place], [place] [address] Resident Neurology 02/10/23 Jennyfer Steele APRN TELESCOPE REPAIRER [facility] S [facility] [address] [place] [address] Nurse Practitioner Psychiatry 02/23/23 Jennyfer Steele APRN TELESCOPE REPAIRER [facility] S [address] [place] [address] [address] [place] [address] Assigned Behavioral Health Provider 06/30/23 Sadaf Apple NP Assigned PCP 07/21/23 09/18/23 [facility] [address] [place] [address] Assigned PCP 09/19/23 Yamel Saha PA-C [address] 0890[address] Assigned Cancer Care Provider 01/19/24 04/19/24 Luna Simons MD [address] 809785 Assigned Cancer Care Provider 04/20/24 documented as of this encounter
--- OUTSIDE RECORDS SUMMARY | 2024-10-15 17:05 | XMS_ITS | Encounter Summary ---
Author Organization [facility] Address [address] [place] [address] Care Team Providers Care Vocational Placement Specialist Name Role Phone Lucita French MD Primary Care Provider Encounter Details Date Type Department Care Team (Late st Contact Info) Description 02/13/2020 Lab Requisition [facility] [address] [place] [address] Cyndie Eisenberg, MATERIALS ASSOCIATE, GLASS BEVELER [address] [place] [address] Cough; Acute pharyngitis, unspecified; Contact with and (suspected) exposure to other viral communicable diseases Social History Tobacco Use Types Packs/Day Years Used Date Smoking Tobacco: Former Cigarettes Q uit: 09/19/2009 Comments No Sex and Gender Information Value Date Recorded Sex Assigned at Female 12/23/2022 12:21 PM CDT Legal Sex Female 8:59 AM CDT Gender Identity Female 12/23/2022 12:21 PM CDT Sexual Orientation Not on file documented as of this encounter Plan of Treatment Not on file documented as of this encounter Procedures Procedure Name Priority Date/Time Associated Diagnosis Comments 2019 NOVEL CORONAVIRUS Routine 02/11/2020 2:32 PM CDT Cough Acute pharyngitis, unspecified Contact with and (suspected) exposure to other viral communicable diseases documented in this encounter Results * 2019 Novel Coronavirus (COVID-19) (02/11/2020 2:32 PM CDT) COVID-19 Interpretation Not Detected Not Detected 02/13/2020 5:49 PM CDT [facility] Swab (Source Required) Non-blood Collection / Unknown 02/11/2020 2:32 PM CDT 02/13/2020 11:51 AM CDT Narrative [facility] - 02/13/2020 5:49 PM CDT Test performed by Paint Roller Covers Supervisor Mediated Amplification. TMA has been shown to be equivalent to commercial real-time PCR tests. This test has been authorized by the FDA under an Emergency Use Authorization (EUA) for use by authorized laboratories. Cyndie Eisenberg APRN, CNP LAB_1 Fin al Result [facility] [address] [address] [phone] documented in this encounter Visit Diagnoses Diagnosis Cough Acute pharyngitis, unspecified Contact with and (suspected) exposure to other viral communicable diseases documented in this encounter Additional Health Concerns Infection Onset Date Last Indicated Resolved Time R/O COVID19 02/11/2020 02/11/2020 02/13/2020 6:10 PM CDT COVID19 08/24/2020 08/24/2020 09/13/2020 3:17 AM CDT R/O COVID19 08/24/2020 08/24/2020 08/25/2020 9:37 PM CDT Respiratory Rule-Out (Converted) 08/25/2020 08/26/1908/25/2020 6:11 AM CDT Undiagnosed Unformed Stools Rule-Out (Converted) 08/25/2020 08/25/2020 08/26/2020 11:07 PM CDT R/O COVID19 03/29/2021 03/29/2021 03/29/2021 2:53 PM CDT documented as of this encounter Care Teams Vocational Placement Specialist Relationship Specialty Start Date End Date Lucita French MD [address] [place] [address] PCP - General Family Practice 07/15/21 documented as of this encounter
--- OUTSIDE RECORDS SUMMARY | 2024-10-15 17:05 | XMS_ITS | Encounter Summary ---
Author Organization [place] Address [address] [place] [address] Care Team Providers Care Sales Development Manager Name Role Phone Cyndie Eisenberg NP Primary Care Provider + Rodney Natarajan MD Unavailable [phone] Luna Simons MD Unavailable [phone] Caroline Duque RN Unavailable [phone] Martha White MD Unavailable [phone] Ankita Park MD Unavailable [phone] Luna Simons MD Unavailable [phone] Nadja Hagen MD Unavailable [phone] Batool Atkinson PhD LP Unavailable Prisca Miller MD Unavailable [phone] Jennyfer Steele APRN DOCUMENT DESIGN SPECIALIST Unavailable +[phone] Jennyfer Steele APRN DOCUMENT DESIGN SPECIALIST Unavailable +[phone] Sadaf Apple NP Unavailable Unavailable [facility] Unavailabl e Yamel Saha PA-C Unavailable [phone] Luna Simons MD Unavailable [phone] Reason for Visit * Reason Onset Date Comments Call Back 08/17/2023 Encounter Details Date Type Department Care Team (Late st Contact Info) Description 08/17/2023 MyC Medical Advice [facility] Mental Health & Addiction [place] [phone] [address] Jennyfer Steele APRN DOCUMENT DESIGN SPECIALIST [address] [facility] [address] [place] [address] Call Back Social History Tobacco Use Types Packs/Day Years [...] How often do you attend chur or episcopalian services? More than 4 times per year 06/22/2023 Do you belong to any clubs o r organizations such as yarsanism groups, unions, fraternal or athletic groups, or [...] Answer Date Recorded PHQ-2 Score 0 06/22/2023 [facility] of Occupat ional Health - Occupational Stress [...] in an abandoned building, in an overnight mcc, or couch-surfing.) Yes 06/22/2023 Are you worried [...] encounter Miscellaneous Notes * Telephone Encounter - Thu Henderson RN - 08/21/2023 4:06 PM CDT Received incoming call from patient returning this music writer's call. Patient is wanting to make edits to the letter. Shared she does not feel she has MDD or DAWIT and wants those removed from the letter. She feels if she had those diagnosis, she would not be able to care for her children. She is wantingto discuss this further with provider. [employer] offered a sooner appt on 08/30 at 11:30 pm. Scheduling notified. * Telephone Encounter - Thu Henderson RN - 08/21/2023 10:07 AM CDT Reached out to patient as requested. No answer at number provided. LVM, requesting a call back. Clinic number provided. * Telephone Encounter - Thu Henderson RN - 08/17/2023 4:54 PM CDT Returned a call to patient as requested. No answer at number provided. LVM, requesting a call back.Clinic number provided. documented in this encounter Plan of Treatment Upcoming Encounters Date Type Department Care Team (Late st Contact Info) Description 09/15/2025 9:15 AM CDT Ancillary Procedure [facility] Breast Center Imaging [address] 2nd [place] [address] Luna Simons MD [address] [place] [address] 09/15/2025 10:00 AM CDT Oncology Visit [facility] [address] [place] [phone] Luna Simons MD [address] [place] [address] documented as of this encounter Visit Diagnoses Not on filedocumented in this encounter Additional Health Concerns Assessment Noted Time PHQ-9 Depression Total Score: 0 06/22/19 24 4:03 PM PEDIATRIC NURSE PRACTITIONER documented as of this encounter Care Teams Sales Development Manager Relationship Specialty Start Date End Date Cyndie Eisenberg MACHINE RECORDS UNITS SUPERVISOR [address] [place] [address] PCP - General 09/25/19 Rodney Natarajan MD 420 [facility] SE [facility] 195 [place], [place] 54[address] General Surgery 09/25/19 Luna Simons MD 420 [place] [facility] 480 [place], [place] 3245[address] Hematology 09/25/19 Caroline Duque, ASHLIE Specialty Automobile Painter Breast Oncology 09/30/19 Martha White MD [address] [facility] [address] [place] [address] [place], [place] 8609[address] space systems operations superintendent 11/01/19 Ankita Park MD [address] [place] [phone] space systems operations superintendent 06/10/20 Luna Simons MD 420 [facility] SE [facility] 480 [place], [place] [address]295 Assigned Cancer Care Provider 09/12/21 01/18/24 Nadja Hagen MD [address] Floor 2, [address] [place], [place] [address] Resident Psychiatry 04/01/22 05/13/24 Batool Atkinson, PhD LP [address] [place] [address] Psychologist Licensed Mental Health 04/01/22 Prisca Miller MD 6 [facility] 295 [place], [place] [address] Resident Neurology 02/10/23 Jennyfer Steele APRN DOCUMENT DESIGN SPECIALIST [address] [place] [address] Nurse Practitioner Psychiatry 02/23/23 Jennyfer Steele APRN DOCUMENT DESIGN SPECIALIST [address] [place] [address] 571704 Assigned Behavioral Health Provider 06/30/23 Sadaf Apple NP Assigned PCP 07/21/23 09/18/23 [facility] [address] [place] [address] Assigned PCP 09/19/23 Yamel Saha PA-C 420 [facility] 480 [place], [place] [address] Assigned Cancer Care Provider 01/19/24 04/19/24 Luna Simons MD 420 [facility] 480 [place], [place] 595[address] Assigned Cancer Care Provider 04/20/24 documented as of this encounter
--- OUTSIDE RECORDS SUMMARY | 2024-10-15 17:05 | XMS_ITS | Encounter Summary ---
Author Organization [place] Address [address] [place] [address] Care Team Providers Care Lens Grinder Rough Name Role Phone Cyndie Eisenberg NP Primary Care Provider + Rodney Natarajan MD Unavailable [phone] Luna Simons MD Unavailable [phone] Caroline Duque RN Unavailable [phone] Martha White MD Unavailable [phone] Ankita Park MD Unavailable [phone] Luna Simons MD Unavailable [phone] Nadja Hagen MD Unavailable [phone] Batool Atkinson PhD LP Unavailable [phone] Prisca Miller MD Unavailable [phone] Jennyfer Steele APRN CAE ENGINEER Unavailable +[phone] Jennyfer Steele APRN CAE ENGINEER Unavailable [phone] Sadaf Apple NP Unavailable Unavailable [facility] Unavailabl e Yamel Saha PA-C Unavailable +[phone] Luna Simons MD Unavailable [phone] Encounter Details Date Type Department Care Team (Late st Contact Info) Description 08/10/2023 MyC Medical Advice [facility] 909 [place] [address] Luna Simons MD 420 [facility] 480 [place], [place] 548755 Social History Tobacco Use Types Packs/Day Years [...] How often do you attend chur or latter day services? More than 4 times per year 06/22/2023 Do you belong to any clubs o r organizations such as moravian groups, unions, fraternal or athletic groups, or [...] Answer Date Recorded PHQ-2 Score 0 06/22/2023 [facility] of Occupat ional Health - Occupational Stress [...] in an abandoned building, in an overnight assisted, or couch-surfing.) Yes 06/22/2023 Are you worried [...] Description 09/15/2025 9:15 AM CDT Ancillary Procedure [facility] Imaging [address] 2nd [place] [address] Luna Simons MD 420 [facility] 480 [place], [place] 643065 09/15/2025 10:00 AM CDT Oncology Visit [facility] 909 [place] [phone] Luna Simons MD 420 [facility] 480 [place], [place] 355755 documented as of this encounter Visit Diagnoses Not on filedocumented in this encounter Additional Health Concerns Assessment Noted Time PHQ-9 Depression Total Score: 0 06/22/19 24 4:03 PM BOX FINISHER documented as of this encounter Care Teams Lens Grinder Rough Relationship Specialty Start Date End Date Cyndie Eisenberg, BEVEL OPERATOR [address] [place] [address] PCP - General 09/25/19 Rodney Natarajan MD [address] [place] [address] 195 [place], [place] 734405 General Surgery 09/25/19 Luna Simons MD [address] [place] [address] 480 [place], [place] 469165 Hematology 09/25/19 Caroline Duque, ASHLIE Specialty Oncologist Breast Oncology 09/30/19 Martha White MD [address] [place] [address] [address] [place] [address] welfare eligibility interviewer 11/01/19 Ankita Park MD [facility] [place] [phone] welfare eligibility interviewer 06/10/20 Luna Simons MD 420 [facility] 480 [place], [place] 995805 Assigned Cancer Care Provider 09/12/21 01/18/24 Nadja Hagen MD [address] [place] [address] [address] 2, [address] [place], [place] 216874 Resident Psychiatry 04/01/22 05/13/24 Batool Atkinson, PhD LP [address] [place], [place] [address] [place] [address] Psychologist Licensed Mental Health 04/01/22 Prisca Miller MD 516 [facility] 295 [place] 339765 Resident Neurology 02/10/23 Jennyfer Steele APRN CAE ENGINEER [address] [place], [place] [address] [place], [place] 829624 Nurse Practitioner Psychiatry 02/23/23 Jennyfer Steele APRN CAE ENGINEER [address] [place] [address] [id number] Assigned Behavioral Health Provider 06/30/23 Sadaf Apple NP Assigned PCP 07/21/23 09/18/23 [facility] [address] [place] [address] Assigned PCP 09/19/23 Yamel Saha PA-C 420 [facility] 480 [place] [address] Assigned Cancer Care Provider 01/19/24 04/19/24 Luna Simons MD [address] [place] [address] 480 [place] [address] Assigned Cancer Care Provider 04/20/24 documented as of this encounter
--- OUTSIDE RECORDS SUMMARY | 2024-10-15 17:05 | XMS_ITS | Encounter Summary ---
Author Organization [place] Address [address] [place] [address] Care Team Providers Care Sewer Line Photo Inspector Name Role Phone Cyndie Eisenberg NP Primary Care Provider + Rodney Natarajan MD Unavailable [phone] Luna Simons MD Unavailable [phone] Caroline Duque RN Unavailable [phone] Martha White MD Unavailable [phone] Ankita Park MD Unavailable [phone] Luna Simons MD Unavailable [phone] Nadja Hagen MD Unavailable [phone] Batool Atkinson PhD LP Unavailable Prisca Miller MD Unavailable [phone] Jennyfer Steele APRN PROCESS SAFETY MANAGEMENT ENGINEER Unavailable + [phone] Jennyfer Steele APRN PROCESS SAFETY MANAGEMENT ENGINEER Unavailable +[phone] Sadaf Apple NP Unavailable Unavailable [facility] Unavailabl e Yamel Saha PA-C Unavailable [phone] Luna Simons MD Unavailable [phone] Encounter Details Date Type Department Care Team (Late st Contact Info) Description 07/06/[address] [facility] [place] [id number] [address] [address] Talita Bradshaw Social History Tobacco Use Types [...] How often do you attend chur or restoration services? More than 4 times per year 06/22/2023 Do you belong to any clubs o r organizations such as religion groups, unions, fraternal or athletic groups, or [...] Answer Date Recorded PHQ-2 Score 0 06/22/2023 [facility] of Occupat ional Health - Occupational [...] in an abandoned building, in an overnight fpc, or couch-surfing.) Yes 06/22/2023 Are you worried [...] Description 09/15/2025 9:15 AM CDT Ancillary Procedure [facility] Imaging [address] 2nd [place] [address] Luna Simons MD [address] [place] [address] 09/15/2025 10:00 AM CDT Oncology Visit [facility] 909 [place] [phone] Luna Simons MD 420 [facility] 480 [place] [address] documented as of this encounter Visit Diagnoses Not on filedocumented in this encounter Additional Health Concerns Assessment Noted Time PHQ-9 Depression Total Score: 0 06/22/19 24 4:03 PM CABLE ENGINEER OUTSIDE PLANT documented as of this encounter Care Teams Sewer Line Photo Inspector Relationship Specialty Start Date End Date Cyndie Eisenberg ATMOSPHERIC TECHNICIAN 100 [facility] [place] [address] PCP - General 09/25/19 Rodney Natarajan MD 420 [facility] 195 [place] [address] General Surgery 09/25/19 Luna Simons MD [address] [place] [address] 480 [place] [address] Hematology 09/25/19 Caroline Duque, RN Specialty Sap Basis Architect Breast Oncology 09/30/19 Martha White MD [address] [place] [address] honey grader and blender 11/01/19 Ankita Park MD [address] [place] [phone] honey grader and blender 06/10/20 Luna Simons MD 420 [facility] 480 [place] [address] Assigned Cancer Care Provider 09/12/21 01/18/24 Nadja Hagen MD [facility] [address] Floor 2, [address] [place] [address] Resident Psychiatry 04/01/22 05/13/24 Batool Atkinson, PhD LP [address] [facility] [address] [place], [place] [address] Psychologist Licensed Mental Health 04/01/22 Prisca Miller MD 516 [facility] 295 [place], [place] 8[address]255 Resident Neurology 02/10/23 Jennyfer Steele APRN PROCESS SAFETY MANAGEMENT ENGINEER [facility] [address] [facility] [address] [place] [address] [place], [place] 040[address] Nurse Practitioner Psychiatry 02/23/23 Jennyfer Steele APRN PROCESS SAFETY MANAGEMENT ENGINEER [facility] [address], [place] [address] [place] [address] Assigned Behavioral Health Provider 06/30/23 Sadaf Apple NP Assigned PCP 07/21/23 09/18/23 [facility] [address] [place] [address] Assigned PCP 09/19/23 Yamel Saha PA-C 420 [facility] 480 [place] [address] Assigned Cancer Care Provider 01/19/24 04/19/24 Luna Simons MD [address] [address] Assigned Cancer Care Provider 04/20/24 documented as of this encounter
--- OUTSIDE RECORDS SUMMARY | 2024-10-15 17:06 | XMS_ITS | Encounter Summary ---
Author Organization [place] Address [address] [place] [address] Care Team Providers Care Review Appraiser Name Role Phone Cyndie Eisenberg NP Primary Care Provider + Rodney Natarajan MD Unavailable [phone] Luna Simons MD Unavailable [phone] Caroline Duque RN Unavailable [phone] Martha White MD Unavailable [phone] Ankita Park MD Unavailable [phone] Batool Atkinson PhD LP Unavailable Prisca Miller MD Unavailable Jennyfer Steele APRN TRACTOR DRIVER TEAMSTER Unavailable +[phone] Jennyfer Steele APRN TRACTOR DRIVER TEAMSTER Unavailable [phone] [facility] Unavailabl e Luna Simons MD Unavailable [phone] Encounter Details Date Type Department Care Team (Late st Contact Info) Description 09/12/2024 Cortney Singh [facility] 909 [place] [address] Radhika Dyer RN Social History Tobacco Use Types Packs/Day Years [...] week 06/22/2023 How often do you attend formerly [facility] or mandaeism services? More than 4 times per year [...] Answer Date Recorded PHQ-2 Score 0 09/10/2024 [facility] - Occupational Stress Questionnaire Answer Date [...] Description 09/15/2025 9:15 AM CDT Ancillary Procedure [facility] Imaging [address] 2nd [place] [address] Luna Simons MD [address] [place] [address] 6[address]85 09/15/2025 10:00 AM CDT Oncology Visit [facility] [address] [place] [address] Luna Simons MD [address] [place] [address], [place] 5[address] documented as of this encounter Visit Diagnoses Not on filedocumented in this encounter Additional Health Concerns Assessment Noted Time PHQ-9 Depression Total Score: 0 09/11/19 25 9:09 AM CDT documented as of this encounter Care Teams Review Appraiser Relationship Specialty Start Date End Date Cyndie Eisenberg NP [address] [place] [address] PCP - General 09/25/19 Rodney Natarajan MD 420 [facility] 195 [place], [place] 428085 General Surgery 09/25/19 Luna Simons MD 420 [facility] 480 [place], [place] [address] Hematology 09/25/19 Caroline Duque, RN Specialty Weatherization Technician Breast Oncology 09/30/19 Martha White MD [address] [place] [address] [address] [place], [place] 048734 inspector materials and processes 11/01/19 Ankita Park MD 2450 [facility] [address] [address] inspector materials and processes 06/10/20 Batool Atkinson, PhD LP 2450 [facility] [address] [place], [place] 208824 Psychologist Licensed Mental Health 04/01/22 Prisca Miller MD 516 [facility] 295 [place] [address] Resident Neurology 02/10/23 Jennyfer Steele APRN TRACTOR DRIVER TEAMSTER [address] [place], [place] 23[address]275 [place], [place] 081274 Nurse Practitioner Psychiatry 02/23/23 Jennyfer Steele APRN TRACTOR DRIVER TEAMSTER [address] [place], [place] [address] [place], [place] 547184 Assigned Behavioral Health Provider 06/30/23 [facility] [address] [place] [address] [id number] Assigned PCP 09/19/23 Luna Simons MD [address] [place] [address] 480 [place], [place] [phone] Assigned Cancer Care Provider 04/20/24 documented as of this encounter
--- OUTSIDE RECORDS SUMMARY | 2024-10-15 17:06 | XMS_ITS | Encounter Summary ---
Author Organization [place] Address [address] [place] [address] Care Team Providers Care Fountain Jerk Name Role Phone Cyndie Eisenberg NP Primary Care Provider + Rodney Natarajan MD Unavailable [phone] Luna Simons MD Unavailable [phone] Caroline Duque RN Unavailable [phone] Martha White MD Unavailable [phone] Ankita Park MD Unavailable [phone] Nadja Hagen MD Unavailable Batool Atkinson PhD LP Unavailable Prisca Miller MD Unavailable Jennyfer Steele APRN AUTOMATIC LOG CUT OFF SAWYER Unavailable [phone] Jennyfer Steele APRN AUTOMATIC LOG CUT OFF SAWYER Unavailable [phone] [facility] Unavailabl e Yamel Saha PA-C Unavailable [phone] Luna Simons MD Unavailable [phone] Encounter Details Date Type Department Care Team (Late st Contact Info) Description 04/01/2024 Cortney Loomis [facility] 909 [place] [phone] Luna Simons MD 420 [facility] 480 [place] [address] Social History Tobacco Use Types Packs/Day Years [...] any clubs o r organizations such as temple groups, unions, fraternal or athletic groups, or [...] PHQ-2 Answer Date Recorded PHQ-2 Score 0 11/09/2023 [facility] of Occupat ional Health - Occupational [...] in an abandoned building, in an overnight correction, or couch-surfing.) Yes 06/22/2023 Are you worried [...] Description 09/15/2025 9:15 AM CDT Ancillary Procedure [facility] Imaging [address] 2nd [place] [address] Luna Simons MD [address] [place] [address] 09/15/2025 10:00 AM CDT Oncology Visit [facility] 909 [place] [address] Luna Simons MD 420 [facility] 480 [place] [address] documented as of this encounter Visit Diagnoses Not on filedocumented in this encounter Additional Health Concerns Assessment Noted Time PHQ-9 Depression Total Score: 0 06/22/19 24 4:03 PM SAND TESTER documented as of this encounter Care Teams Fountain Jerk Relationship Specialty Start Date End Date Cyndie Eisenberg CUSTOMS VERIFIER 100 [facility] [place] [address] PCP - General 09/25/19 Rodney Natarajan MD 420 [facility] 195 [place] [address] General Surgery 09/25/19 Luna Simons MD [address] [place] [address] 480 [place] [address] Hematology 09/25/19 Caroline Duque, RN Specialty Flat Sorting Machine Clerk Breast Oncology 09/30/19 Martha White MD [address] [place] [address] [address] [place] [address] veneer gluer 11/01/19 Ankita Park MD [address] [place] [phone] veneer gluer 06/10/20 Nadja Hagen MD [address] [place] [address] Floor 2, [address] [place], [place] [address] Resident Psychiatry 04/01/22 05/13/24 Batool Atkinson, PhD LP 2450 [facility] [address] [place], [place] 624[address] Psychologist Licensed Mental Health 04/01/22 Prisca Miller MD 516 [facility] 295 [place], [place] 98[address] Resident Neurology 02/10/23 Jennyfer Steele APRN AUTOMATIC LOG CUT OFF SAWYER [address] [place] [address], [place] [address] [place], [place] [address] Nurse Practitioner Psychiatry 02/23/23 Jennyfer Steele APRN AUTOMATIC LOG CUT OFF SAWYER [address] [place] [address], [place] [address] [place], [place] [address]74 Assigned Behavioral Health Provider 06/30/23 [facility] [address] [place] [address] Assigned PCP 09/19/23 Yamel Saha PA-C 420 [facility] 480 [place] [address] Assigned Cancer Care Provider 01/19/24 04/19/24 Luna Simons MD 420 [facility] 480 [place], [place] 417185 Assigned Cancer Care Provider 04/20/24 documented as of this encounter
--- OUTSIDE RECORDS SUMMARY | 2024-10-15 17:06 | XMS_ITS | Encounter Summary ---
Author Organization [place] Address [address] [place] [address] Care Team Providers Care Manufacturing Executive Name Role Phone Cyndie Eisenberg NP Primary Care Provider + Rodney Natarajan MD Unavailable Luna Simons MD Unavailable Caroline Duque RN Unavailable [phone] Martha White MD Unavailable Ankiat Park MD Unavailable [phone] Batool Atkinson PhD LP Unavailable Prisca Miller MD Unavailable [phone] Jennyfer Steele APRN PIPELINER Unavailable [phone] Jennyfer Steele APRN PIPELINER Unavailable [phone] [facility] Unavailabl e Luna Simons MD Unavailable Reason for Referral * Diagnostic Imaging Mammo (Routine) - Pending Review Specialty Diagnoses / Procedures Referred By Gus t Referred To Contact Radiology. Diagnoses Invasive ductal carcinoma of breast, right (H) Procedures MA Screening Bilateral w/ Ashu Luna Simons MD 420 [facility] 480 [place] [address] Phone: tel: fax: Referral ID Status Reason Start Date Expiration Date V isits Requested Visits Authorized [id number] Pending Review 09/20/2024 09/20/2025 1 1 Encounter Details Date Type Department Care Team (Late st Contact Info) Description 09/20/2024 Orders Only [facility] 909 [place] [address] Luna Simons MD [address] [address] Invasive ductal carcinoma of breast, right (H) (Primary Dx) Social History Tobacco Use Types [...] often do you attend chur ch or islam services? More than 4 times per year 06/22/2023 Do you belong to any clubs o r organizations such as orthodox groups, unions, fraternal or athletic groups, [...] Answer Date Recorded PHQ-2 Score 0 09/10/2024 [facility] - Occupational Stress Questionnaire Answer Date Recorded [...] Answer Date Recorded Do you have housing? (Sarahin g is defined as stable permanent housing and does not include staying outside in a car, in a tent, in an abandoned building, in an overnight fci, or couch-surfing.) Yes 06/22/2023 Are you worried [...] Description 09/15/2025 9:15 AM CDT Ancillary Procedure [facility] Breast [facility] Imaging [place] 909 [facility] 2nd [place] [address] Luna Simons MD 420 [facility] 480 [place], [place] [address]8475 09/15/2025 10:00 AM CDT Oncology Visit [facility] 909 [place] [phone] Luna Simons MD 420 [facility] 480 [place] [address] Scheduled Orders Name Type Priority Associated Diagnoses Orde r Schedule MA Screening Bilateral w/ Ashu Imaging Routine Invasive ductal carcinoma of breast, right (H) Expected: 09/20/2024 (Approximate), Expires: 09/20/2025 documented as of this encounter Visit Diagnoses Diagnosis Invasive ductal carcinoma of breast, right (H)- Primary documented in this encounter Additional Health Concerns Assessment Noted Time PHQ-9 Depression Total Score: 0 09/11/19 9:09 AM CDT documented as of this encounter Care Teams Manufacturing Executive Relationship Specialty Start Date End Date Cyndie Eisenberg NP [address] [place] [address] PCP - General 09/25/19 Rodney Natarajan MD 420 [facility] 195 [place], [place] 808735 General Surgery 09/25/19 Luna Simons MD [address] [place] [address] 480 [place] [address] Hematology 09/25/19 Caroline Duque, RN Specialty Division Field Inspector Breast Oncology 09/30/19 Martha White MD 2312 S [facility] [place] [address] [place], [place] [address] densitometer reader 11/01/19 Ankita Park MD [facility] [address] [address] densitometer reader 06/10/20 Batool Atkinson, PhD LP [facility] [address] [place], [place] 248[address] Psychologist Licensed Mental Health 04/01/22 Prisca Miller MD 6 [facility] 295 [place], [place] [address] Resident Neurology 02/10/23 Jennyfer Steele APRN PIPELINER [facility] [address] [place], [place] [address] Nurse Practitioner Psychiatry 02/23/23 Jennyfer Steele APRN PIPELINER [address] [place] [address] [address]275 [place] [address] Assigned Behavioral Health Provider 06/30/23 [facility] [address] [place] [address] Assigned PCP 09/19/23 Luna Simons MD [address] [place] [address] 480 [place] [address] Assigned Cancer Care Provider 04/20/24 documented as of this encounter
--- OUTSIDE RECORDS SUMMARY | 2024-10-15 17:06 | XMS_ITS | Encounter Summary ---
Author Organization [facility] Address [address] [place] [address] Care Team Providers Care Energy Conservation Technician Name Role Phone Cyndie Eisenberg NP Primary Care Provider + Rodney Natarajan MD Unavailable [phone] Luna Simons MD Unavailable [phone] Caroline Duque RN Unavailable +[phone] Martha White MD Unavailable [phone] Ankita Park MD Unavailable +[phone] Ankita Park MD Unavailable +[phone] Jose Zaragoza NP Unavailable Luna Simons MD Unavailable Nadja Hagen MD Unavailable +[phone] Batool Atkinson PhD LP Unavailable [phone] Prisca Miller MD Unavailable +[phone] Jennyfer Steele APRN VALIDATION ANALYST Unavailable +[phone] Jennyfer Steele APRN VALIDATION ANALYST Unavailable +[phone] Sadaf Apple NP Unavailable Unavailable [facility] Unavailabl e Yamel Saha PA-C Unavailable +[phone] Luna Simons MD Unavailable [phone] Encounter Details Date Type Department Care Team (Late st Contact Info) Description 02/04/2022 MyC Medical Advice [facility] Mental Health & Addiction [place] [id number] [phone] [facility] Social History Tobacco Use Types Packs/Day Years [...] Description 09/15/2025 9:15 AM CDT Ancillary Procedure [facility] Breast Center Imaging [address] 2nd [place] [phone] Luna Simons MD [address] [place] [address] 774585 09/15/2025 10:00 AM CDT [facility] [address] [place] [phone] Luna Simons MD [address] [place] [address] documented as of this encounter Visit Diagnoses Not on filedocumented in this encounter Additional Health Concerns Infection Onset Date Last Indicated Resolved Time Rule Out COVID-19 01/24/2023 01/24/2023 01/24/2023 10:32 PM CDT Assessment Noted Time PHQ-9 Depression Total Score: 12 0216/2 022 8:00 AM TRACER CLERK documented as of this encounter Care Teams Energy Conservation Technician Relationship Specialty Start Date End Date Cyndie Eisenberg NP [address] [place] [address] PCP - General 09/25/19 Rodney Natarajan MD 420 [facility] 195 [place], [place] 344715 General Surgery 09/25/19 Luna Simons MD 420 [facility] 480 [place], [place] 137305 MD Hematology 09/25/19 Caroline Duque, ASHLIE [employer]ty [employer] Psychometrist Breast Oncology 09/30/19 Martha White MD Formerly named [facility] [address] [place], [place] 748554 hand folder 11/01/19 Ankita Park MD [address] [place] [phone] Assigned Behavioral Health Provider 05/03/20 06/29/23 Ankita Park MD [address] [place] [phone] hand folder 06/10/20 Jose Zaragoza, TRANSITION SPECIALIST 6405 [facility] [place] [address] Assigned Heart and Vascular Provider 11/08/20 02/04/22 Luna Simons MD 420 [facility] 480 [place], [place] 789535 Assigned Cancer Care Provider 09/12/21 01/18/24 Nadja Hagen MD 2312 S [facility] Floor 2, [address] [place], [place] 510284 Resident Psychiatry 04/01/22 05/13/24 Batool Atkinson, PhD LP 2450 [facility] [address] [place], [place] 760514 Psychologist Licensed Mental Health 04/01/22 Prisca Miller MD 516 [facility] 295 [place] [address] Resident Neurology 02/10/23 Jennyfer Steele APRN VALIDATION ANALYST 2312 S [facility] [place] [address] [place], [place] 393784 Nurse Practitioner Psychiatry 02/23/23 Jennyfer Steele APRN VALIDATION ANALYST 2312 [address] [facility] [place] [address] [place], [place] 029904 Assigned Behavioral Health Provider 06/30/23 Sadaf Apple NP Assigned PCP 07/21/23 09/18/[address] [address] Assigned PCP 09/19/23 Yamel Saha PA-C 420 [facility] 480 [place] [address] Assigned Cancer Care Provider 01/19/24 04/19/24 Luna Simons MD 420 [facility] 480 [place] [address] Assigned Cancer Care Provider 04/20/24 documented as of this encounter
--- OUTSIDE RECORDS SUMMARY | 2024-10-15 17:06 | XMS_ITS | Encounter Summary ---
Author Organization [facility] Address [address] [place] [address] Care Team Providers Care Retail Pharmacy Merchandiser Name Role Phone Cyndie Eisenberg NP Primary Care Provider + Rodney Natarajan MD Unavailable [phone] Luna Simons MD Unavailable +[phone] Caroline Duque RN Unavailable [phone] Martha White MD Unavailable [phone] Ankita Park MD Unavailable [phone] Aknita Park MD Unavailable [phone] Luna Simons MD Unavailable +[phone] Nadja Hagen MD Unavailable +[phone] Batool Atkinson PhD LP Unavailable [phone] Prisca Miller MD Unavailable +[phone] Jennyfer Steele APRN DIRECTOR OF REGIONAL SALES Unavailable +[phone] Jennyfer Steele APRN DIRECTOR OF REGIONAL SALES Unavailable + [phone] Sadaf Apple NP Unavailable Unavailable [facility] Unavailabl e Yamel Saha PA-C Unavailable +[phone] Luna Simons MD Unavailable +[phone] Encounter Details Date Type Department Care Team (Late st Contact Info) Description 02/22/2022 MyC Medical Advice [facility] Cancer [address] [phone] Talita Bradshaw Social History Tobacco Use Types [...] Description 09/15/2025 9:15 AM CDT Ancillary Procedure [facility] Breast Center Imaging [address] 2nd [place] [phone] Luna Simons MD [address] [place] [address] 09/15/2025 10:00 AM CDT Oncology Visit [facility] Cancer [address] [phone] Luna Simons MD [address] [place] [address] 126175 documented as of this encounter Visit Diagnoses Not on filedocumented in this encounter Additional Health Concerns Infection Onset Date Last Indicated Resolved Time Rule Out COVID-19 01/24/2023 01/24/2023 01/24/2023 10:32 PM CDT Assessment Noted Time PHQ-9 Depression Total Score: 12 07/14/ 022 8:00 AM COMMERCIAL TIRE SERVICE TECHNICIAN documented as of this encounter Care Teams Retail Pharmacy Merchandiser Relationship Specialty Start Date End Date Cyndie Eisenberg NP [address] [place] [address] PCP - General 09/25/19 Rodney Natarajan MD 420 [facility] 195 [place], [place] 571535 MD General Surgery 09/25/19 Luna Simons MD 420 [facility] 480 [place], [place] 548[address] MD Hematology 09/25/19 Caroline Duque, ASHLIE Specialty Guitar Technician Breast Oncology 09/30/19 Martha White MD 2312 [address] [facility] [place] [address] [place], [place] 689[address] block machine operator 11/01/19 Ankita Park MD [facility] [address] [phone] Assigned Behavioral Health Provider 05/03/20 06/29/23 Ankita Park MD [facility] [address] [phone] block machine operator 06/10/20 Luna Simons MD 420 [facility] 480 [place] [address] Assigned Cancer Care Provider 09/12/21 01/18/24 Nadja Hagen MD [address] Floor 2, [address] [place], [place] 552334 Resident Psychiatry 04/01/22 05/13/24 Batool Atkinson, PhD LP [facility] [address] [place], [place] 778384 Psychologist Licensed Mental Health 04/01/22 Prisca Miller MD 516 [facility] 295 [place] [address] Resident Neurology 02/10/23 Jennyfer Steele APRN DIRECTOR OF REGIONAL SALES [address] [place], [place] 380[address] [place] [address] Nurse Practitioner Psychiatry 02/23/23 Jennyfer Steele APRN DIRECTOR OF REGIONAL SALES [address] [place], [place] [address] [place] [address] Assigned Behavioral Health Provider 06/30/23 Sadaf Apple NP Assigned PCP 07/21/23 09/18/23 [facility] [address] [place] [address] Assigned PCP 09/19/23 Yamel Saha PA-C 420 [facility] 480 [place], [place] 7[address]35 Assigned Cancer Care Provider 01/19/24 04/19/24 Luna Simons MD 420 [facility] 480 [place], [place] 557855 Assigned Cancer Care Provider 04/20/24 documented as of this encounter
--- OUTSIDE RECORDS SUMMARY | 2024-10-15 17:06 | XMS_ITS | Encounter Summary ---
Author Organization [facility] Address [address] [place] [address] Care Team Providers Care Plastics Worker Name Role Phone Cyndie Eisenberg NP Primary Care Provider + Rodney Natarajan MD Unavailable [phone] Luna Simons MD Unavailable +[phone] Caroline Duque RN Unavailable [phone] Martha White MD Unavailable +[phone] Ankita Park MD Unavailable [phone] Ankita Park MD Unavailable [phone] Luna Simons MD Unavailable +[phone] Nadja Hagen MD Unavailable +[phone] Batool Atkinson PhD LP Unavailable [phone] Prisca Miller MD Unavailable +[phone] Jennyfer Steele APRN VACUUM TECHNICIAN Unavailable +[phone] Jennyfer Steele APRN VACUUM TECHNICIAN Unavailable + [phone] Sadaf Apple NP Unavailable Unavailable [facility] Unavailabl e Yamel Saha PA-C Unavailable +[phone] Luna Simons MD Unavailable +[phone] Encounter Details Date Type Department Care Team (Late st Contact Info) Description 08/24/2022 MyC Medical Advice [facility] Mental Health & Addiction [address] [phone] Ankita Park MD [address] [place] [address] Social History Tobacco Use Types Packs/Day Years Used Date Smoking Tobacco: Never Cigarettes Smokeless Tobacco: Never Alcohol Use Standard Drinks/Week Comments Yes 0 (1 standard drink = 0.6 oz pur e alcohol) rare PHQ-2 Answer Date Recorded PHQ-2 Score 4 04/05/2022 Comments No Sex and Gender Information Value Date Recorded Sex Assigned at Not on file Legal Sex Female 9:05 AM CDT Gender Identity Not on file Sexual Orientation Not on file documented as of this encounter Plan of Treatment Upcoming Encounters Date Type Department Care Team (Late st Contact Info) Description 09/15/2025 9:15 AM CDT Ancillary Procedure [facility] Breast Center Imaging [place] [address] [place] [address] 2nd [place] [phone] Luna Simons MD [address] [place] [address] 589105 09/15/2025 10:00 AM CDT Oncology Visit [facility] 909 [place] [address] Luna Simons MD [address] [place] [address] 445615 documented as of this encounter Visit Diagnoses Not on filedocumented in this encounter Additional Health Concerns Infection Onset Date Last Indicated Resolved Time Rule Out COVID-19 01/24/2023 01/24/2023 01/24/2023 10:32 PM CDT Assessment Noted Time PHQ-9 Depression Total Score: 22 022 3:25 PM PREPARER documented as of this encounter Care Teams Plastics Worker Relationship Specialty Start Date End Date Rafaelrafal Cyndie Ann, AMANDA [address] [place] [address] PCP - General 09/25/19 Rodney Natarajan MD 420 [facility] 195 [place], [place] 137545 General Surgery 09/25/19 Luna Simons MD 420 [facility] 480 [place], [place] 031205 Hematology 09/25/19 Caroline Duque, ASHLIE Specialty Packaging Technician Breast Oncology 09/30/19 Martha White MD 2312 S [facility] [place] [address] [place], [place] 233824 medicaid service coordinator 11/01/19 Ankita Park MD [address] [place] [phone] Assigned Behavioral Health Provider 05/03/20 06/29/23 Ankita Park MD [address] [place] [phone] medicaid service coordinator 06/10/20 Luna Simons MD 420 [facility] 480 [place], [place] 264375 Assigned Cancer Care Provider 09/12/21 01/18/24 Nadja Hagen MD [address] [facility] Floor 2, [address] [place], [place] 3[address] Resident Psychiatry 04/01/22 05/13/24 Batool Atkinson, PhD LP [address] [place], [place] [address] [place], [place] 4158[address] Psychologist Licensed Mental Health 04/01/22 Prisca Miller MD 6 [facility] 295 [place], [place] 088435 Resident Neurology 02/10/23 Jennyfer Steele APRN VACUUM TECHNICIAN [address] [place] [address] 431704 Nurse Practitioner Psychiatry 02/23/23 Jennyfer Steele APRN VACUUM TECHNICIAN [address] [place] [address] 738154 Assigned Behavioral Health Provider 06/30/23 Sadaf Apple NP Assigned PCP 07/21/23 09/18/23 [facility] [address] [place] [address] Assigned PCP 09/19/23 Yamel Saha PA-C 420 [facility] 480 [place], [place] 838145 Assigned Cancer Care Provider 01/19/24 04/19/24 Luna Simons MD 420 [facility] 480 [place], [place] 494985 Assigned Cancer Care Provider 04/20/24 documented as of this encounter
--- OUTSIDE RECORDS SUMMARY | 2024-10-15 17:06 | XMS_ITS | Encounter Summary ---
Author Organization [facility] Address [address] [place] [address] Care Team Providers Care Power Shovel Engineer Name Role Phone Cyndie Eisenberg NP Primary Care Provider + Rodney Natarajan MD Unavailable [phone] Luna Simons MD Unavailable [phone] Caroline Duque RN Unavailable [phone] Martha White MD Unavailable Pedrito Ramirez MD Unavailable [phone] Rodney Natarajan MD Unavailable [phone] Ankita Park MD Unavailable [phone] Ankita Park MD Unavailable [phone] Mio Mclean MD Unavailable [phone] Luna Simons MD Unavailable Jose Zaragoza NP Unavailable Mio Mclean MD Unavailable [phone] Luna Simons MD Unavailable Nadja Hagen MD Unavailable +[phone] Batool Atkinson PhD LP Unavailable Prisca Miller MD Unavailable Jennyfer Steele APRN AIR DEFENSE SPECIALIST Unavailable + Jennyfer Steele PROCESS MAINTENANCE TECHNICIAN AIR DEFENSE SPECIALIST Unavailable + Sadaf Apple NP Unavailable Unavailable [facility] Unavailabl e Yamel Saha PA-C Unavailable [phone] Luna Simons MD Unavailable [phone] Encounter Details Date Type Department Care Team (Late st Contact Info) Description 06/25/2020 MyC Medical Advice [facility] 909 [place] [address] Luna Simons MD [address] [place] [address] Social History Tobacco Use Types Packs/Day Years Used Date Smoking Tobacco: Former Cigarettes Smokeless Tobacco: Never Comments:Smoked for 6 years in her 20's and some in her 30's but socially Alcohol Use Standard Drinks/Week Comments Yes 0 (1 standard drink = 0.6 oz pur e alcohol) rare Comments No Sex and Gender Information Value Date Recorded Sex Assigned at Not on file Legal Sex Female 9:05 AM CDT Gender Identity Not on file Sexual Orientation Not on file COVID-19 Exposure Response Date Recorded In the last month, have you been in contact with someone who was confirmed or suspected to have Coronavirus / COVID-19? No / Unsure 06/03/2020 9:30 AM CRAWLER DRAGLINE OPERATOR documented as of this encounter Plan of Treatment Upcoming Encounters Date Type Department Care Team (Late st Contact Info) Description 09/15/2025 9:15 AM CDT Ancillary Procedure [facility] Breast Center Imaging [place] 909 [facility] 2nd [place] [address] Luna Simons MD [address] [place] [address] 09/15/2025 10:00 AM CDT Oncology Visit [facility] 909 [place] [phone] Luna Simons MD [address] 197705 documented as of this encounter Visit Diagnoses Not on filedocumented in this encounter Additional Health Concerns Infection Onset Date Last Indicated Resolved Time Rule Out COVID-19 01/24/2023 01/24/2023 01/24/2023 10:32 PM CDT documented as of this encounter Care Teams Power Shovel Engineer Relationship Specialty Start Date End Date Cyndie Eisenberg NP [address] [place] [address] PCP - General 09/25/19 Rodney Natarajan MD [address] 069045 General Surgery 09/25/19 Luna Simons MD [address] 280785 Hematology 09/25/19 Caroline Duque, RN Specialty Lamp Developer Breast Oncology 09/30/19 Martha White MD [address] [place] [address] [address] [place] [address] fireworks assembly supervisor 11/01/19 Pedrito Ramirez MD 6405 [facility] [address] [place], [place] 670975 Assigned Heart and Vascular Provider 03/20/20 11/07/20 Rodney Natarajan MD [address] 922645 Assigned Surgical Provider 03/20/20 08/07/21 Ankita Park MD [address] [place] [phone] Assigned Behavioral Health Provider 05/03/20 06/29/23 Ankita Park MD [address] [place] [phone] fireworks assembly supervisor 06/10/20 Mio Mclean MD [address] 770455 Assigned Cancer Care Provider 05/10/20 07/25/20 Luna Simons MD [address] [place] [address] Assigned Cancer Care Provider 07/26/20 06/26/21 Jose Zaragoza NP 6405 [place] [address] Assigned Heart and Vascular Provider 11/08/20 02/04/22 Mio Mclean MD [address] [address] Assigned Cancer Care Provider 06/27/21 09/11/21 Luna Simons MD [address] [address] Assigned Cancer Care Provider 09/12/21 01/18/24 Nadja Hagen MD [address] [place] [address] Floor 2, [address] [place] [address] Resident Psychiatry 04/01/22 05/13/24 Batool Atkinson, PhD LP 2450 [facility] [address] [place] [address] Psychologist Licensed Mental Health 04/01/22 Prisca Miller MD 6 [facility] 295 [place], [place] 627475 Resident Neurology 02/10/23 Jennyfer Steele APRN AIR DEFENSE SPECIALIST [address] [place] [address], [place] [address] [place] [address] Nurse Practitioner Psychiatry 02/23/23 Jennyfer Steele APRN AIR DEFENSE SPECIALIST [address] [place] [address] [address] [place] [address] Assigned Behavioral Health Provider 06/30/23 Sadaf Apple NP Assigned PCP 07/21/23 09/18/23 [facility] [address] [place] [address] Assigned PCP 09/19/23 Yamel Saha PA-C 420 [facility] 480 [place], [place] 288665 Assigned Cancer Care Provider 01/19/24 04/19/24 Luna Simons MD 420 [facility] 480 [place], [place] 943835 Assigned Cancer Care Provider 04/20/24 documented as of this encounter
--- OUTSIDE RECORDS SUMMARY | 2024-10-15 17:06 | XMS_ITS | Encounter Summary ---
Author Organization [facility] Address [address] [place] [address] Care Team Providers Care Billet Examiner Name Role Phone Cyndie Eisenberg NP Primary Care Provider + Rodney Natarajan MD Unavailable [phone] Luna Simons MD Unavailable [phone] Caroline Duque RN Unavailable [phone] Martha White MD Unavailable [phone] Ankita Park MD Unavailable [phone] Ankita Park MD Unavailable [phone] Jose Zaragoza NP Unavailable Luna Simons MD Unavailable +[phone] Nadja Hagen MD Unavailable [phone] Batool Atkinson PhD LP Unavailable [phone] Prisca Miller MD Unavailable [phone] Jennyfer Steele APRN MANAGER PERSONAL Unavailable +[phone] Jennyfer Steele APRN MANAGER PERSONAL Unavailable +[phone] Sadaf Apple NP Unavailable Unavailable [facility] Unavailabl e Yamel Saha PA-C Unavailable +[phone] Luna Simons MD Unavailable Encounter Details Date Type Department Care Team (Late st Contact Info) Description 12/23/2021 MyC Medical Advice [facility] Cancer [address] [phone] Talita Bradshaw Social History Tobacco Use Types [...] Description 09/15/2025 9:15 AM CDT Ancillary Procedure [facility] Breast Center Imaging [address] 2nd [place] [phone] Luna Simons MD [address] [place] [address] 857935 09/15/2025 10:00 AM CDT Oncology Visit [facility] Cancer [address] [phone] Luna Simons MD [address] [place] [address] 481275 documented as of this encounter Visit Diagnoses Not on filedocumented in this encounter Additional Health Concerns Infection Onset Date Last Indicated Resolved Time Rule Out COVID-19 01/24/2023 01/24/2023 01/24/2023 10:32 PM CDT Assessment Noted Time PHQ-9 Depression Total Score: 12 07/14/2 022 8:00 AM SUPERVISOR GARMENT MANUFACTURING documented as of this encounter Care Teams Billet Examiner Relationship Specialty Start Date End Date Cyndie Eisenberg NP [address] [place] [address] PCP - General 09/25/19 Rodney Natarajan MD 420 [facility] 195 [place], [place] 550295 General Surgery 09/25/19 Luna Simons MD 420 [facility] 480 [place] [address] MD Hematology 09/25/19 Caroline Duque, RN Specialty Litigator Breast Oncology 09/30/[address] [facility] [address] [place] [address] [address] [place], [place] 639234 drywall application supervisor 11/01/19 Ankita Park MD [address] [place] [address] Assigned Behavioral Health Provider 05/03/20 06/29/23 Ankita Park MD [address] [place] [address] drywall application supervisor 06/10/20 Jose Zaragoza, HEAT AND FROST INSULATOR 6405 [facility] [place] [id number] Assigned Heart and Vascular Provider 11/08/20 02/04/22 Luna Simons MD 420 [facility] 480 [place] [address] Assigned Cancer Care Provider 09/12/21 01/18/24 Nadja Hagen MD 2312 S [facility] Floor 2, [address] [place], [place] 763464 Resident Psychiatry 04/01/22 05/13/24 Batool Atkinson, PhD LP 2450 [facility] [address] [place], [place] 8[address]144 Psychologist Licensed Mental Health 04/01/22 Prisca Miller MD 516 [facility] 295 [place] [address] Resident Neurology 02/10/23 Jennyfer Steele APRN MANAGER PERSONAL 2312 S [facility] [place] [address] [place], [place] 53[address]24 Nurse Practitioner Psychiatry 02/23/23 Jennyfer Steele APRN MANAGER PERSONAL 2312 [facility] [place] [address] [place], [place] 584874 Assigned Behavioral Health Provider 06/30/23 Sadaf Apple NP Assigned PCP 07/21/23 09/18/23 [facility] [address] [place] [address] Assigned PCP 09/19/23 Yamel Saha PA-C 420 [facility] 480 [place] [address] Assigned Cancer Care Provider 01/19/24 04/19/24 Luna Simons MD 420 [facility] 480 [place] [address] Assigned Cancer Care Provider 04/20/24 documented as of this encounter
--- OUTSIDE RECORDS SUMMARY | 2024-10-15 17:06 | XMS_ITS | Encounter Summary ---
Author Organization [facility] Address [address] [place] [address] Care Team Providers Care Glass Enamel Mixer Name Role Phone Lucita French MD Primary Care Provider Encounter Details Date Type Department Care Team (Late st Contact Info) Description 01/18/2020 Lab Requisition [facility] [address] [place] [phone] Cyndie Eisenberg, ROLL PICKER, CRYSTAL INSPECTOR [address] [place] [address] Encounter for screening for other viral diseases Social History Tobacco Use Types Packs/Day [...] Date/Time Associated Diagnosis Comments 2019 NOVEL CORONAVIRUS STAT 01/17/2020 9:09 AM CDT Encounter for screening for other viral diseases documented in this encounter Results * 2019 Novel Coronavirus (COVID-19) (01/17/2020 9:09 AM CDT) COVID-19 Interpretation Not Detected Not Detected 01/18/2020 9:10 PM CDT OTI [facility] Swab (Source Required) Non-blood Collection / Unknown 01/17/2020 9:09 AM CDT 01/18/2020 8:18 AM CDT Narrative [facility] - 01/18/2020 9:10 PM CDT Test performed by Nucelic Acid Amplification. This test has been authorized by the FDA under an Emergency Use Authorization (EUA) for use by authorized laboratories. us Cyndie Eisenberg APRN, CRYSTAL INSPECTOR LAB_1 Fin al Result [facility] [address] [address] [phone] documented in this encounter Visit Diagnoses Diagnosis Encounter for screening for other viral diseases documented in this encounter Additional Health [...] documented as of this encounter Care Teams Glass Enamel Mixer Relationship Specialty Start Date End Date Lucita French MD [address] [place] [address] PCP - General Family Practice 07/15/21 documented as of this encounter
--- OUTSIDE RECORDS SUMMARY | 2024-10-15 17:06 | XMS_ITS | Encounter Summary ---
Author Organization [facility] Address [address] [place] [address] Care Team Providers Care Inbound Ingredient Logistics Specialist Name Role Phone Cyndie Eisenberg NP Primary Care Provider + Rodney Natarajan MD Unavailable [phone] Luna Simons MD Unavailable +[phone] Caroline Duque RN Unavailable Martha White MD Unavailable [phone] Ankita Park MD Unavailable [phone] Ankita Park MD Unavailable [phone] Luna Simons MD Unavailable +[phone] Nadja Hagen MD Unavailable +[phone] Batool Atkinson PhD LP Unavailable [phone] Prisca Miller MD Unavailable +[phone] Jennyfer Steele APRN CLIENT DELIVERY SPECIALIST Unavailable +[phone] Jennyfer Steele APRN CLIENT DELIVERY SPECIALIST Unavailable + [phone] Sadaf Apple NP Unavailable Unavailable [facility] Unavailabl e Yamel Saha PA-C Unavailable +[phone] Luna Simons MD Unavailable [phone] Encounter Details Date Type Department Care Team (Late st Contact Info) Description 08/18/2022 MyC Medical Advice [facility] Cancer [address] [phone] Luna Simons MD [address] [place] [address] 034415 Social History Tobacco Use Types Packs/Day Years [...] Description 09/15/2025 9:15 AM CDT Ancillary Procedure [facility] Breast [facility] Imaging [address] 2nd [place] [phone] Luna Simons MD [address] [place] [address]275 09/15/2025 10:00 AM CDT Oncology Visit [facility] [address] [place] [phone] Luna Simons MD [address] [place] [address]885 documented as of this encounter Visit Diagnoses Not on filedocumented in this encounter Additional Health Concerns Infection Onset Date Last Indicated Resolved Time Rule Out COVID-19 01/24/2023 01/24/2023 01/24/2023 10:32 PM CDT Assessment Noted Time PHQ-9 Depression Total Score: 22 022 3:25 PM IN HOME SALES REPRESENTATIVE documented as of this encounter Care Teams Inbound Ingredient Logistics Specialist Relationship Specialty Start Date End Date Cyndie Eisenberg Guera, STOCK HOLDER [address] [place] [address] PCP - General 09/25/19 Rodney Natarajan MD [address] [facility] 195 [place] [address] General Surgery 09/25/19 Luna Simons MD 420 [facility] 480 [place] [address] Hematology 09/25/19 Caroline Duque, ASHLIE Specialty Engraver Seals Breast Oncology 09/30/19 Martha White MD [address] [place], [place] 4[address] merchant mariner 11/01/19 Ankita Park MD [facility] [address] [address] Assigned Behavioral Health Provider 05/03/20 06/29/23 Ankita Park MD [facility] [address] [phone] merchant mariner 06/10/20 Luna Simons MD 420 [facility] 480 [place], [place] [address] Assigned Cancer Care Provider 09/12/21 01/18/24 Nadja Hagen MD [address] Floor 2, [address] [place], [place] [address] Resident Psychiatry 04/01/22 05/13/24 [place] [address] [place], [place] [address] [place] [address] Psychologist Licensed Mental Health 04/01/22 Prisca Miller MD 516 [facility] 295 [place], [place] 274595 Resident Neurology 02/10/23 Jennyfer Steele APRN CLIENT DELIVERY SPECIALIST [address] 85527[address] [place] [address] Nurse Practitioner Psychiatry 02/23/23 Jennyfer Steele APRN CLIENT DELIVERY SPECIALIST [facility] 85527[address] [place] [address] Assigned Behavioral Health Provider 06/30/23 Sadaf Apple NP Assigned PCP 07/21/23 09/18/23 [facility] [address] [place] [address] Assigned PCP 09/19/23 Yamel Saha PA-C 420 [facility] 480 [place], [place] 591179 Assigned Cancer Care Provider 01/19/24 04/19/24 Luna Simons MD 420 [facility] 480 [place], [place] 414345 Assigned Cancer Care Provider 04/20/24 documented as of this encounter
--- OUTSIDE RECORDS SUMMARY | 2024-10-15 17:06 | XMS_ITS | Encounter Summary ---
Author Organization [facility] Address [address] [place] [address] Care Team Providers Care Geological Science Teacher Name Role Phone Cyndie Eisenberg NP Primary Care Provider + Rodney Natarajan MD Unavailable [phone] Luna Simons MD Unavailable [phone] Caroline Duque RN Unavailable [phone] Martha White MD Unavailable [phone] Ankita Park MD Unavailable [phone] Luna Simons MD Unavailable [phone] Nadja Hagen MD Unavailable +[phone] Batool Atkinson PhD LP Unavailable +[phone] Prisca Miller MD Unavailable [phone] Jennyfer Steele APRN ASSESSMENT CLINICIAN Unavailable +[phone] Jennyfer Steele APRN ASSESSMENT CLINICIAN Unavailable [phone] [facility] Unavailabl e Yamel Saha PA-C Unavailable +[phone] Luna Simons MD Unavailable [phone] Encounter Details Date Type Department Care Team (Late st Contact Info) Description 11/09/2023 [place] Medical Advice [facility] Mental Health & Addiction [address] [address] Talita Bradshaw Social History Tobacco [...] week 06/22/2023 How often do you attend [facility] services? More than 4 times per year 06/22/2023 Do you belong to any clubs o r organizations such as congregational groups, unions, fraternal or athletic groups, or [...] Answer Date Recorded PHQ-2 Score 0 11/09/2023 [facility] of Occupat ional Health - Occupational Stress [...] in an abandoned building, in an overnight chcf, or couch-surfing.) Yes 06/22/2023 Are you worried [...] Description 09/15/2025 9:15 AM CDT Ancillary Procedure [facility] Breast Center Imaging [place] [address] [facility] [address] 2nd [place] [address] Luna Simons MD [address] [place] [address] 868735 09/15/2025 10:00 AM CDT Oncology Visit [facility] 909 [place] [phone] Luna Simons MD 420 [facility] 480 [place], [place] 172525 documented as of this encounter Visit Diagnoses Not on filedocumented in this encounter Additional Health Concerns Assessment Noted Time PHQ-9 Depression Total Score: 0 06/22/19 24 4:03 PM THEATRE INSTRUCTOR documented as of this encounter Care Teams Geological Science Teacher Relationship Specialty Start Date End Date Cyndie Eisenberg AT RISK PARAPROFESSIONAL [address] [place] [address] PCP - General 09/25/19 Rodney Natarajan MD 420 [facility] 195 [place], [place] 171145 General Surgery 09/25/19 Luna Simons MD [address] [place] [address] 000535 Hematology 09/25/19 Caroline Duque, RN Specialty Field Pipelines Supervisor Breast Oncology 09/30/19 Martha White MD [address] [place], [place] 453424 hub inventory specialist 11/01/19 Ankita Park MD [address] [place] [phone] hub inventory specialist 06/10/20 Luna Simons MD [address] [place] [address] Assigned Cancer Care Provider 09/12/21 01/18/24 Nadja Hagen MD [address] [place] [address] Floor 2, [address] [place] [address] Resident Psychiatry 04/01/22 05/13/24 Batool Atkinson, PhD LP [address] [place] [address] [address] [place] [address] Psychologist Licensed Mental Health 04/01/22 Prisca Miller MD [address] [place] [address] 295 [place], [place] 7[address]255 Resident Neurology 02/10/23 Jennyfer Steele APRN ASSESSMENT CLINICIAN [address] [place] [address], [place] [place] [address] Nurse Practitioner Psychiatry 02/23/23 Jennyfer Steele APRN ASSESSMENT CLINICIAN [address] [place] [address] [address] [place] [address] Assigned Behavioral Health Provider 06/30/[address] [address] Assigned PCP 09/19/23 Yamel Saha PA-C [address] [place] [address] 480 [place] [address] Assigned Cancer Care Provider 01/19/24 04/19/24 Luna Simons MD [address] [place] [address] 480 [place] [address] Assigned Cancer Care Provider 04/20/24 documented as of this encounter
--- OUTSIDE RECORDS SUMMARY | 2024-10-15 17:06 | XMS_ITS | Encounter Summary ---
Author Organization [facility] Address [address] [place] [address] Care Team Providers Care Supervisor Molding Name Role Phone Cyndie Eisenberg NP Primary Care Provider + Rodney Natarajan MD Unavailable [phone] Luna Simons MD Unavailable [phone] Caroline Duque RN Unavailable [phone] Martha White MD Unavailable [phone] Pedrito Ramierz MD Unavailable [phone] Rodney Natarajan MD Unavailable [phone] Ankita Park MD Unavailable [phone] Ankita Park MD Unavailable [phone] Mio Mclean MD Unavailable [phone] Luna Simons MD Unavailable Jose Zaragoza NP Unavailable [phone] Mio Mclean MD Unavailable [phone] Luna Simons MD Unavailable Nadja Hagen MD Unavailable +[phone] Batool Atkinson PhD LP Unavailable [phone] Prisca Miller MD Unavailable Jennyfer Steele APRN AUTOMATIC THREAD WINDER Unavailable + Jennyfer Steele MECHANICAL HANDYMAN AUTOMATIC THREAD WINDER Unavailable + Sadaf Apple NP Unavailable Unavailable [facility] Unavailabl e Yamel Saha PA-C Unavailable [phone] Luna [place]ons MD Unavailable [phone] Encounter Details Date Type Department Care Team (Late st Contact Info) Description 07/07/2020 MyC Medical Advice [facility] Cancer [facility] 909 [place] [address] Luna Simons MD [address] [place] [address] Social History Tobacco Use Types Packs/Day [...] have Coronavirus / COVID-19? No / Unsure 07/07/2020 1:06 PM LEAD FORMER documented as of this encounter Plan of Treatment Upcoming Encounters Date Type Department Care Team (Late st Contact Info) Description 09/15/2025 9:15 AM CDT Ancillary Procedure [facility] Imaging [place] 909 [facility] 2nd [place] [address] Luna Simons MD [address] [place] [address] 09/15/2025 10:00 AM CDT Oncology Visit [facility] Clinic 909 [place] [phone] Luna Simons MD [address] 659115 documented as of this encounter Visit Diagnoses Not on filedocumented in this encounter Additional Health Concerns Infection Onset Date Last Indicated Resolved Time Rule Out COVID-19 01/24/2023 01/24/2023 01/24/2023 10:32 PM CDT documented as of this encounter Care Teams Supervisor Molding Relationship Specialty Start Date End Date Cyndie Eisenberg NP [address] [place] [address] PCP - General 09/25/19 Rodney Natarajan MD [address] 023655 General Surgery 09/25/19 Luna Simons MD [address] 328865 Hematology 09/25/19 Caroline Duque, RN Specialty Content Coordinator Breast Oncology 09/30/19 Martha White MD [address] [place] [address] [address] [place] [address] technical assistant 11/01/19 Pedriot Ramirez MD 6405 [facility] [address]200 [place], [place] 277275 Assigned Heart and Vascular Provider 03/20/20 11/07/20 Rodney Natarajan MD [address] 534425 Assigned Surgical Provider 03/20/20 08/07/21 Ankita Park MD [address] [place] [phone] Assigned Behavioral Health Provider 05/03/20 06/29/23 Ankita Park MD [address] [place] [address] technical assistant 06/10/20 Mio Mclean MD [address] 572685 Assigned Cancer Care Provider 05/10/20 07/25/20 Luna Simons MD [address] [place] [address] Assigned Cancer Care Provider 07/26/20 06/26/21 Jose Zaragoza NP 6405 [place] [address] Assigned Heart and Vascular Provider 11/08/20 02/04/22 Mio Mclean MD [address] [address] Assigned Cancer Care Provider 06/27/21 09/11/21 Luna Simons MD [address] [address] Assigned Cancer Care Provider 09/12/21 01/18/24 Nadja Hagen MD [address] [place] [address] Floor 2, [address] [place] [address] Resident Psychiatry 04/01/22 05/13/24 Batool Atkinson, PhD LP 2450 [facility] [address] [place] [address] Psychologist Licensed Mental Health 04/01/22 Prisca Miller MD 6 [facility] 295 [place], [place] [address]665 Resident Neurology 02/10/23 Jennyfer Steele APRN AUTOMATIC THREAD WINDER [address] [place] [address], [address] [place] [address] Nurse Practitioner Psychiatry 02/23/23 Jennyfer Steele APRN AUTOMATIC THREAD WINDER [address] [place] [address] [address] [place] [address] Assigned Behavioral Health Provider 06/30/23 Sadaf Apple NP Assigned PCP 07/21/23 09/18/23 [facility] [address] [place] [address] Assigned PCP 09/19/23 Yamel Saha PA-C 420 [facility] 480 [place], [place] [address]265 Assigned Cancer Care Provider 01/19/24 04/19/24 Luna Simons MD 420 [facility] 480 [place], [place] 813035 Assigned Cancer Care Provider 04/20/24 documented as of this encounter
--- OUTSIDE RECORDS SUMMARY | 2024-10-15 17:06 | XMS_ITS | Encounter Summary ---
Author Organization [facility] Address [address] [place] [address] Care Team Providers Care Medical Billing Assistant Name Role Phone Cyndie Eisenberg NP Primary Care Provider + Rodney Natarajan MD Unavailable Luna Simons MD Unavailable [phone] Caroline Duque RN Unavailable [phone] Martha White MD Unavailable [phone] Ankita Park MD Unavailable [phone] Luna Simons MD Unavailable [phone] Nadja Hagen MD Unavailable [phone] Batool Atkinson PhD LP Unavailable Prisca Miller MD Unavailable [phone] Jennyfer Steele APRN CHIN STRAP SEWER Unavailable +[phone] Jennyfer Steele APRN CHIN STRAP SEWER Unavailable +[phone] [facility] Unavailabl e Yamel Saha PA-C Unavailable +[phone] Luna Simons MD Unavailable [phone] Encounter Details Date Type Department Care Team (Late st Contact Info) Description 01/05/2024 MyC Medical [facility] Clinic 909 [place] [address] Luna Simons MD [address] [address] Social History Tobacco Use Types Packs/Day [...] How often do you attend chur or hindu services? More than 4 times per year 06/22/2023 Do you belong to any clubs o r organizations such as lutheran groups, unions, fraternal or athletic groups, or [...] Answer Date Recorded PHQ-2 Score 0 11/09/2023 [facility] of Occupat ional Health - Occupational Stress [...] in an abandoned building, in an overnight penitentiary, or couch-surfing.) Yes 06/22/2023 Are you worried [...] CDT Ancillary Procedure [facility] Imaging [address] 2nd [place] [address] Luna Simons MD 420 [facility] 480 [place] [address] 09/15/2025 10:00 AM CDT Oncology Visit [facility] 909 [place] [phone] Luna Simons MD 420 [facility] 480 [place], [place] 366245 documented as of this encounter Visit Diagnoses Not on filedocumented in this encounter Additional Health Concerns Assessment Noted Time PHQ-9 Depression Total Score: 0 06/22/19 24 4:03 PM CYLINDER BLOCK MECHANIC documented as of this encounter Care Teams Medical Billing Assistant Relationship Specialty Start Date End Date Cyndie Eisenberg, SENIOR GRANTS OFFICER [address] [place] [address] PCP - General 09/25/19 Rodney Natarajan MD 420 [facility] 195 [place], [place] 868325 General Surgery 09/25/19 Luna Simons MD 420 [facility] 480 [place] [address] Hematology 09/25/19 Caroline Duque, ASHLIE Specialty Clam Shovel Operator Breast Oncology 09/30/19 Martha White MD [address] [place] [address] [address] [place], [place] 10[address]34 tearer press clipping 11/01/19 Ankita Park MD [facility] [address] [phone] tearer press clipping 06/10/20 Luna Simons MD 420 [facility] 480 [place] [address] Assigned Cancer Care Provider 09/12/21 01/18/24 Nadja Hagen MD [address] 2, [address] [place], [place] [address] Resident Psychiatry 04/01/22 05/13/24 Batool Atkinson, PhD LP 2450 [facility] [address] [place], [place] 0[address] Psychologist Licensed Mental Health 04/01/22 Prisca Miller MD 516 [facility] 295 [place], [place] 396375 Resident Neurology 02/10/23 Jennyfer Steele APRN CHIN STRAP SEWER 2312 S [facility], [place] [address] [place], [place] 858174 Nurse Practitioner Psychiatry 02/23/23 Jennyfer Steele APRN CHIN STRAP SEWER [address], [facility] [address] [place], [place] 562714 Assigned Behavioral Health Provider 06/30/23 [facility] [address] [place] [address] Assigned PCP 09/19/23 Yamel Saha PA-C 420 [facility] 480 [place] [address] Assigned Cancer Care Provider 01/19/24 04/19/24 Luna Simons MD [address] 919175 Assigned Cancer Care Provider 04/20/24 documented as of this encounter
--- OUTSIDE RECORDS SUMMARY | 2024-10-15 17:06 | XMS_ITS | Encounter Summary ---
Author Organization [place] Address [address] [place] [address] Care Team Providers Care Finished Hardware Erector Name Role Phone Cyndie Eisenberg NP Primary Care Provider + Rodney Natarajan MD Unavailable [phone] Luna Simons MD Unavailable Caroline Duque RN Unavailable [phone] Martha White MD Unavailable [phone] Ankita Park MD Unavailable [phone] Ankita Park MD Unavailable [phone] Jose Zaragoza NP Unavailable Luna Simons MD Unavailable [phone] Nadja Hagen MD Unavailable [phone] Batool Atkinson PhD LP Unavailable [phone] Prisca Miller MD Unavailable [phone] Jennyfer Steele APRN MINE PRODUCTION ENGINEER Unavailable +[phone] Jennyfer Steele APRN MINE PRODUCTION ENGINEER Unavailable +[phone] Sadaf Apple NP Unavailable Unavailable [facility] Unavailabl e Yamel Saha PA-C Unavailable [phone] Luna Simons MD Unavailable Encounter Details Date Type Department Care Team (Late st Contact Info) Description 10/20/2021 MyC Medical Advice [facility] Cancer [address] [address] Luna Simons MD [address] [place] [address] Social History Tobacco Use Types Packs/Day Years [...] Description 09/15/2025 9:15 AM CDT Ancillary Procedure [facility] Breast Center Imaging [address] 2nd [place] [phone] Luna Simons MD [address] [place] [address] 09/15/2025 10:00 AM CDT Oncology Visit [facility] Cancer [address] [phone] Luna Simons MD [address] [place] [address] 986175 documented as of this encounter Visit Diagnoses Not on filedocumented in this encounter Additional Health Concerns Infection Onset Date Last Indicated Resolved Time Rule Out COVID-19 01/24/2023 01/24/2023 01/24/2023 10:32 PM CDT Assessment Noted Time PHQ-9 Depression Total Score: 12 022 8:00 AM OILSEED MEAT PRESSER documented as of this encounter Care Teams Finished Hardware Erector Relationship Specialty Start Date End Date Cyndie Eisenberg NP [address] [place] [address] PCP - General 09/25/19 Rodney Natarajan MD 420 [facility] 195 [place], [place] [address]295 General Surgery 09/25/19 Luna Simons MD 420 [facility] 480 [place], [place] 409385 Hematology 09/25/19 Caroline Duque, ASHLIE Specialty Rotor Casting Machine Operator Breast Oncology 09/30/[address] [facility] [place] [address] [address] [place], [place] 8837[address] trial justice 11/01/19 Ankita Park MD [address] [place] [phone] Assigned Behavioral Health Provider 05/03/20 06/29/23 Ankita Park MD [address] [place] [phone] trial justice 06/10/20 Jose Zaragoza, CONTROL ELECTRICIAN 6405 [facility] [place] [address] Assigned Heart and Vascular Provider 11/08/20 02/04/22 Luna Simons MD 420 [facility] 480 [place] [address] Assigned Cancer Care Provider 09/12/21 01/18/24 Nadja Hagen MD [address] [place] [address] Floor 2, [address] [place], [place] [address] Resident Psychiatry 04/01/22 05/13/24 Batool Atkinson, PhD LP [address] [place], [place] 96[address] [place], [place] [address] Psychologist Licensed Mental Health 04/01/22 Prisca Miller MD 6 [facility] 295 [place], [place] 6[address]755 Resident Neurology 02/10/23 Jennyfer Steele APRN MINE PRODUCTION ENGINEER [address] [place] [address], [place] [address] [place], [place] 7[address] Nurse Practitioner Psychiatry 02/23/23 Jennyfer Steele APRN MINE PRODUCTION ENGINEER [address] [place], [place] [address] [place], [place] 470654 Assigned Behavioral Health Provider 06/30/23 Sadaf Apple NP Assigned PCP 07/21/23 09/18/23 [facility] [address] [place] [address] Assigned PCP 09/19/23 Yamel Saha PA-C [address] [place] [address] 480 [place], [place] 687285 Assigned Cancer Care Provider 01/19/24 04/19/24 Luna Simons MD [address] [place] [address] Assigned Cancer Care Provider 04/20/24 documented as of this encounter
--- OUTSIDE RECORDS SUMMARY | 2024-10-15 17:06 | XMS_ITS | Encounter Summary ---
Author Organization [facility] Address [address] [place] [address] Care Team Providers Care Real Estate Financial Analyst Name Role Phone Cyndie Eisenberg NP Primary Care Provider + Rodney Natarajan MD Unavailable [phone] Luna Simons MD Unavailable Caroline Duque RN Unavailable [phone] Martha White MD Unavailable Pedrito Ramirez MD Unavailable [phone] Rdoney Natarajan MD Unavailable [phone] Ankita Park MD Unavailable [phone] Ankita Park MD Unavailable [phone] Mio Mclean MD Unavailable [phone] Luna Simons MD Unavailable [phone] Jose Zaragoza NP Unavailable Mio Mclean MD Unavailable [phone] Luna Simons MD Unavailable Nadja Hagen MD Unavailable Batool Atkinson PhD LP Unavailable Prisca Miller MD Unavailable Jennyfer Steele APRN PAY CLERK Unavailable + Jennyfer Steele APRN PAY CLERK Unavailable + Sadaf Apple NP Unavailable Unavailable Clinic - [facility] Unavailabl e Yamel Saha PA-C Unavailable [phone] Luna Simons MD Unavailable Reason for Visit * Reason Onset Date Comments Refill Request 07/06/2020 Trazodone 50 mg - not needed Encounter Details Date Type Department Care Team (Late st Contact Info) Description 07/06/2020 MyC Medical Advice [facility] [place] [id number] [address] [address] Ankita Park MD [address] [address] Refill Request (Trazodone 50 mg - not needed) Social History Tobacco Use Types Packs/Day Years [...] COVID-19? No / Unsure 07/07/2020 1:06 PM FLY FISHING GUIDE documented as of this encounter Miscellaneous Notes * Telephone Encounter - Alan Nino RN - 07/07/2020 10:30 AM CST Lead Printer called pharmacy ([phone]) and Boy confirmed that an order was available. Requested it be filled. Routed message to pt via MyChart. FISHING GUIDE * Telephone Encounter - Alan Nino RN - 07/06/2020 12:47 PM CST Disp Refills Start End SHIRLEY traZODone (DESYREL) 50 MG tablet 180 tablet 0 06/21/2020 No Sig: May take up to 3 tabs (150mg) by mouth as needed for insomnia every night. Caution daytime sedation. Sent to pharmacy as: traZODone HCl 50 MG Oral Tablet (DESYREL) Class: E-Prescribe Order: [id number] E-Prescribing Status: Receipt confirmed by pharmacy (06/21/2020 10:55 PM FLY FISHING GUIDE) [id number] [address] Dispensed Days Supply Quantity Provider Pharmacy TRAZODONE 50 MG TABLET 05/27/2020 30 90 Units [id number] - ... FISHING GUIDE FISHING GUIDE FISHING GUIDE documented in this encounter Plan of Treatment Upcoming Encounters Date Type Department Care Team (Late st Contact Info) Description 09/15/2025 9:15 AM CDT Ancillary Procedure [facility] Imaging [address] 2nd [place] [address] Luna Simons MD [address] [place] [address] 565515 09/15/2025 10:00 AM CDT Oncology Visit [facility] [address] [place] [address] Luna Simons MD [address] [place] [address] 218655 documented as of this encounter Visit Diagnoses Not on filedocumented in this encounter Additional Health Concerns Infection Onset Date Last Indicated Resolved Time Rule Out COVID-19 01/24/2023 01/24/2023 01/24/2023 10:32 PM CDT documented as of this encounter Care Teams Real Estate Financial Analyst Relationship Specialty Start Date End Date Cyndie Eisenberg MANAGER PRINT [address] [place] [address] PCP - General 09/25/19 Rodney Natarajan MD [address] [facility] [address] [place], [place] 185075 General Surgery 09/25/19 Luna Simons MD [address] [facility] 480 [place], [place] 260[address] Hematology 09/25/19 Caroline Duque, RN Specialty Offal Icer Poultry Breast Oncology 09/30/19 Martha White MD [address] [place], [place] [phone] grocery store courtesy clerk 11/01/19 Pedrito Ramirez MD 6405 [facility] [address] [place] [address] Assigned Heart and Vascular Provider 03/20/20 11/07/20 Rodney Natarajan MD [address] [facility] 195 [place], [place] 297725 Assigned Surgical Provider 03/20/20 08/07/21 Ankita Park MD [address] [place] [phone] Assigned Behavioral Health Provider 05/03/20 06/29/23 Ankita Park MD 2450 [facility] [address] [phone] grocery store courtesy clerk 06/10/20 Mio Mclean MD 420 [facility] 494 [place], [place] 228185 Assigned Cancer Care Provider 05/10/20 07/25/20 Luna Simons MD [address] 733215 Assigned Cancer Care Provider 07/26/20 06/26/21 Jose Zaragoza NP 6405 [place], [place] 916965 Assigned Heart and Vascular Provider 11/08/20 02/04/22 Mio Mclean MD [address] 222405 Assigned Cancer Care Provider 06/27/21 09/11/21 Luna Simons MD [address] [place] [address] Assigned Cancer Care Provider 09/12/21 01/18/24 Nadja Hagen MD [address] Floor 2, [address] [place], [place] 5654[address] Resident Psychiatry 04/01/22 05/13/24 Batool Atkinson, PhD LP [address] [place] [address] [address] [place] [address] Psychologist Licensed Mental Health 04/01/22 Prisca Miller MD 516 [facility] 295 [place] [address] Resident Neurology 02/10/23 Jennyfer Steele APRN PAY CLERK [address] [place] [address] Nurse Practitioner Psychiatry 02/23/23 Jennyfer Steele APRN PAY CLERK [address] [place] [address] Assigned Behavioral Health Provider 06/30/23 Sadaf Apple NP Assigned PCP 07/21/23 09/18/23 [facility] [address] [place] [address] Assigned PCP 09/19/23 Yamel Saha PA-C 420 [facility] 480 [place] [address] Assigned Cancer Care Provider 01/19/24 04/19/24 Luna Simons MD 420 [facility] 480 [place] [address] Assigned Cancer Care Provider 04/20/24 documented as of this encounter
--- OUTSIDE RECORDS SUMMARY | 2024-10-15 17:06 | XMS_ITS | Encounter Summary ---
Author Organization [facility] Address [address] [place] [address] Care Team Providers Care Career And Technology Education Teacher Name Role Phone Cyndie Eisenberg NP Primary Care Provider + Rodney Natarajan MD Unavailable [phone] Luna Simons MD Unavailable Caroline Duque RN Unavailable [phone] Martha White MD Unavailable [phone] Ankita Park MD Unavailable [phone] Batool Atkinson PhD LP Unavailable Prisca Miller MD Unavailable [phone] Jennyfer Steele APRN PHYSICAL THERAPY ASST Unavailable +[phone] Jennyfer Steele APRN PHYSICAL THERAPY ASST Unavailable [phone] [facility] Unavailabl e Luna Simons MD Unavailable [phone] Encounter Details Date Type Department Care Team (Latest Contact Info) Description 09/12/2024 Travel Social History Tobacco Use Types Packs/Day Years [...] often do you attend chur ch or religion services? More than 4 times per year 06/22/2023 Do you belong to any clubs o r organizations such as shinto groups, unions, fraternal or athletic groups, or [...] Answer Date Recorded PHQ-2 Score 0 09/10/2024 [facility] - Occupational Stress Questionnaire Answer Date Recorded [...] Description 09/15/2025 9:15 AM CDT Ancillary Procedure [facility] Breast [facility] Imaging [address] 2nd [place] [address] Luna Simons MD [address] [place] [address] [id number] 09/15/2025 10:00 AM CDT Oncology Visit [facility] [address] [place] [address] Luna Simons MD [address] [place] [address] [phone] documented as of this encounter Visit Diagnoses Not on filedocumented in this encounter Additional Health Concerns Assessment Noted Time PHQ-9 Depression Total Score: 0 09/11/19 25 9:09 AM CDT documented as of this encounter Care Teams Career And Technology Education Teacher Relationship Specialty Start Date End Date Cyndie Eisenberg, AMANDA [address] [place] [address] PCP - General 09/25/19 Rodney Natarajan MD 420 [facility] 195 [place], [place] 834[address] General Surgery 09/25/19 Luna Simons MD 420 [facility] 480 [place], [place] 571[address] Hematology 09/25/19 Caroline Duque, ASHLIE Specialty Floatman Breast Oncology 09/30/19 Martha White MD [address] [place] [address] touch up edger 11/01/19 Ankita Park MD 2450 [facility] [address] [address] touch up edger 06/10/20 Batool Atkinson, PhD LP [address] [place], [place] 008764 Psychologist Licensed Mental Health 04/01/22 Prisca Miller MD 516 [facility] 295 [place], [place] 8[address] Resident Neurology 02/10/23 Jennyfer Steele APRN PHYSICAL THERAPY ASST 2312 [facility] [address] [place] [address] Nurse Practitioner Psychiatry 02/23/23 Jennyfer Steele APRN PHYSICAL THERAPY ASST [facility] [address] [place] [address] Assigned Behavioral Health Provider 06/30/23 [facility] [id number] [place] [address] Assigned PCP 09/19/23 Luna Simons MD [address] [place] [address] 480 [place], [place] 115905 Assigned Cancer Care Provider 04/20/24 documented as of this encounter
--- OUTSIDE RECORDS SUMMARY | 2024-10-15 17:06 | XMS_ITS | Encounter Summary ---
Author Organization [facility] Address [address] [place] [address] Care Team Providers Care Management Manager Name Role Phone Cyndie Eisenberg NP Primary Care Provider + Rodney Natarajan MD Unavailable [phone] Luna Simons MD Unavailable Caroline Duque RN Unavailable [phone] Martha White MD Unavailable Pedrito Ramirez MD Unavailable [phone] Rodney Natarajan MD Unavailable [phone] Ankita Park MD Unavailable [phone] Ankita Park MD Unavailable [phone] Mio Mclean MD Unavailable [phone] Luna Simons MD Unavailable Jose Zaragoza NP Unavailable Mio Mclean MD Unavailable [phone] Luna Simons MD Unavailable Nadja Hgaen MD Unavailable [phone] Batool Atkinson PhD LP Unavailable Prisca Miller MD Unavailable [phone] Jennyfer Steele APRN EXERCISER HORSE Unavailable + Jennyfer Steele APRN EXERCISER HORSE Unavailable + Sadaf Apple NP Unavailable Unavailable Clinic - [facility] Unavailabl e Yamel Saha PA-C Unavailable [phone] Luna Simons MD Unavailable Encounter Details Date Type Department Care Team (Late st Contact Info) Description 07/22/2020 MyC Medical Advice [facility] & Addiction [place] [id number] [address] [address] Ankita Park MD [address] [address] Anxiety Social History Tobacco Use Types Packs/Day [...] have Coronavirus / COVID-19? No / Unsure 07/16/2020 9:13 AM CLINICAL SUPERVISOR documented as of this encounter Miscellaneous Notes * Telephone Encounter - Alan Nino, RN - 07/23/2020 10:38 AM CST Images from the original note were not included. Ankita Park MD Snyder, David J, RN ?? Yes please Absolutely go back to 60mg She should keep checking BP about 2x a week for 3 weeks after the reduction to see if BP goes down. Also, ask her to please send a BP record to us via Visiarc in a couple of weeks. Thanks! Cement Rubber called pharmacy ([phone]) and was informed by Toshia that a 90- capsule supply of duloxetine 60 mg and a 90-capsule supply of trazodone 50 mg was available. Cement Rubber e-prescribed 90-capsule supply of duloxetine 60 mg to requested pharmacy and added a note todiscontinue 30 mg order. Routed message to pt via Visiarc reviewing provider recommendations and inquiring on trazodone use. ICAL SUPERVISOR * Telephone Encounter - Alan Nino RN - 07/22/2020 2:39 PM CST Last seen: 06/09 RTC: 08/18 Non-provider cancel: None No-show: None Next appt: 08/18 Incoming refill from patient via Visiarc Medication requested: Disp Refills Start End SHIRLEY traZODone (DESYREL) 50 MG tablet 180 tablet 0 06/21/2020 No Sig: May take up to 3 tabs (150mg) by mouth as needed for insomnia every night. Caution daytime sedation. Disp Refills Start End SHIRLEY DULoxetine (CYMBALTA) 30 MG capsule 90 capsule 0 07/23/2020 No Sig - Route: Take 1 capsule (30 mg) by mouth every morning along with one 60 mg capsule for total daily dose of 90 mg Disp Refills Start End SHIRLEY DULoxetine (CYMBALTA) 60 MG capsule 90 capsule 0 07/23/2020 No Sig - Route: Take 1 capsule (60 mg) by mouth every morning along with one 30 mg capsule for total daily dose of 90 mg From med dispense history report: Dispensed Days Supply Quantity Provider Pharmacy DULOXETINE HCL DR 30 MG CAP 05/01/2020 90 90 Units [id number] - ... DULOXETINE HCL DR 60 MG CAP 05/01/2020 90 90 Units [facility] - ... Dispensed Days Supply Quantity Provider Pharmacy TRAZODONE 50 MG TABLET 07/07/2020 30 90 Units [id number] - ... Cymbalta was increased from 60 mg to 90 mg on 04/06/20. Routed message to pt via Visiarc inquiring on reason for Cymbalta reduction request. ICAL SUPERVISOR documented in this encounter Plan of Treatment Upcoming Encounters Date Type Department Care Team (Late st Contact Info) Description 09/15/2025 9:15 AM CDT Ancillary Procedure [facility] Breast [facility] Imaging [address] 2nd [place] [phone] Luna Simons MD 420 [facility] 480 [place], [place] 215005 09/15/2025 10:00 AM CDT Oncology Visit [facility] [address] [place] [phone] Luna Simons MD [address] [place] [address] [phone] documented as of this encounter Visit Diagnoses Diagnosis Anxiety Anxiety state, unspecified documented in this encounter Additional Health Concerns Infection Onset Date Last Indicated Resolved Time Rule Out COVID-19 01/24/2023 01/24/2023 01/24/2023 10:32 PM CDT documented as of this encounter Care Teams Management Manager Relationship Specialty Start Date End Date Cyndie Eisenberg NP [address] [place] [address] PCP - General 09/25/19 Rodney Natarajan MD [address] [place] [address] 195 [place], [place] [address] General Surgery 09/25/19 Luna Simons MD [address] [place] [address] 480 [place], [place] 437485 Hematology 09/25/19 Caroline Duque, RN Specialty Sales Strategy Manager Breast Oncology 09/30/19 Martha White MD [address] [place] [address] [address] [place], [place] 149784 high lead yarder 11/01/19 Pedrito Ramirez MD 6405 [facility] [address] [place] 785095 Assigned Heart and Vascular Provider 03/20/20 11/07/20 Rodney Natarajan MD 420 [facility] 195 [place], [place] 008865 Assigned Surgical Provider 03/20/20 08/07/21 Ankita Park MD 2450 [facility] [place] [address] Assigned Behavioral Health Provider 05/03/20 06/29/23 Ankita Park MD [address] [address] high lead yarder 06/10/20 Mio Mclean MD 420 [facility] 494 [place], [place] 0[address] Assigned Cancer Care Provider 05/10/20 07/25/20 Luna Simons MD 420 [facility] 480 [place], [place] 703705 Assigned Cancer Care Provider 07/26/20 06/26/21 Jose Zaragoza, DUPLICATOR PUNCH SET UP OPERATOR [address] [place] [address] Assigned Heart and Vascular Provider 11/08/20 02/04/22 Mio Mclean MD 420 [facility] 494 [place] [address] Assigned Cancer Care Provider 06/27/21 09/11/21 Luna Simons MD 420 [facility] 480 [place] [address] Assigned Cancer Care Provider 09/12/21 01/18/24 Nadja Hagen MD [address] [place] [address] Floor 2, [address] [place] [address] Resident Psychiatry 04/01/22 05/13/24 Batool Atkinson, PhD LP [address] [place], [place] [address]E [address] [place], [place] 490934 Psychologist Licensed Mental Health 04/01/22 Prisca Miller MD 6 [facility] 295 [place] [address] Resident Neurology 02/10/23 Jennyfer Steele APRN EXERCISER HORSE [address] [place] [address], [address] [address] Nurse Practitioner Psychiatry 02/23/23 Jennyfer Steele APRN EXERCISER HORSE [address] [place] [address] Assigned Behavioral Health Provider 06/30/23 Sadaf Apple NP Assigned PCP 07/21/23 09/18/23 [facility] [address] [place] [address] Assigned PCP 09/19/23 Yamel Saha PA-C [address] [place] [address] Assigned Cancer Care Provider 01/19/24 04/19/24 Luna Simons MD [address] [place] [address] Assigned Cancer Care Provider 04/20/24 documented as of this encounter
--- OUTSIDE RECORDS SUMMARY | 2024-10-15 17:06 | XMS_ITS | Encounter Summary ---
Author Organization [facility] Address [address] [place] [address] Care Team Providers Care Activity Specialist Name Role Phone Cyndie Eisenberg NP Primary Care Provider + Rodney Natarajan MD Unavailable [phone] Luna Simons MD Unavailable [phone] Caroline Duque RN Unavailable [phone] Martha White MD Unavailable [phone] Ankita Park MD Unavailable [phone] Ankita Park MD Unavailable [phone] Luna Simons MD Unavailable [phone] Nadja Hagen MD Unavailable [phone] Batool Atkinson PhD LP Unavailable [phone] Prisca Miller MD Unavailable [phone] Jennyfer Steele APRN BRAKE LINING DRILLER Unavailable +[phone] Jennyfer Steele APRN BRAKE LINING DRILLER Unavailable + [phone] Sadaf Apple NP Unavailable Unavailable [facility] Unavailabl e Yamel Saha PA-C Unavailable [phone] Luna Simons MD Unavailable [phone] Encounter Details Date Type Department Care Team (Late st Contact Info) Description 08/23/2022 MyC Medical Advice [facility] Addiction [place] [id number] [address] [phone] Talita Bradshaw Social History Tobacco Use Types [...] Description 09/15/2025 9:15 AM CDT Ancillary Procedure [facility] Imaging [address] 2nd [place] [phone] Luna Simons MD [address] [place] [address] 438585 09/15/2025 10:00 AM CDT Oncology Visit [facility] [address] [place] [phone] Luna Simons MD [address] [place] [address] 675265 documented as of this encounter Visit Diagnoses Not on filedocumented in this encounter Additional Health Concerns Infection Onset Date Last Indicated Resolved Time Rule Out COVID-19 01/24/2023 01/24/2023 01/24/2023 10:32 PM CDT Assessment Noted Time PHQ-9 Depression Total Score: 22 022 3:25 PM LOG WASHER documented as of this encounter Care Teams Activity Specialist Relationship Specialty Start Date End Date Cyndie Eisenberg NP [address] [place] [address] PCP - General 09/25/19 Rodney Natarajan MD 420 [facility] 195 [place], [place] 567355 MD General Surgery 09/25/19 Luna Simons MD 420 [facility] 480 [place], [place] 002105 MD Hematology 09/25/19 Caroline Duque, ASHLIE Specialty Revenue Integrity Analyst Breast Oncology 09/30/19 Martha White MD 2312 S [facility] [address] [place], [place] 47[address]54 activity therapist 11/01/19 Ankita Park MD [address] [place] [phone] Assigned Behavioral Health Provider 05/03/20 06/29/23 Aknita Park MD [address] [place] [phone] activity therapist 06/10/20 Luna Simons MD [address] [place] [address] 480 [place] [address] Assigned Cancer Care Provider 09/12/21 01/18/24 Nadja Hagen MD 2312 S [facility] Floor 2, [address] [place], [place] 6[address] Resident Psychiatry 04/01/22 05/13/24 [place] [address] [place] [address] [address] [place] [address] Psychologist Licensed Mental Health 04/01/22 Prisca Miller MD 516 [facility] 295 [place] [address] Resident Neurology 02/10/23 Jennyfer Steele APRN BRAKE LINING DRILLER [address] [place] [address] [address] [place] [address] Nurse Practitioner Psychiatry 02/23/23 Jennyfer Steele APRN BRAKE LINING DRILLER [address] [place] [address] [address] [place] [address] Assigned Behavioral Health Provider 06/30/23 Sadaf Apple NP Assigned PCP 07/21/23 09/18/23 [facility] [id number] [place] [address] Assigned PCP 09/19/23 Yamel Saha PA-C 420 [facility] 480 [place] [address] Assigned Cancer Care Provider 01/19/24 04/19/24 Luna Simons MD 420 [facility] 480 [place], [place] [address]65 Assigned Cancer Care Provider 04/20/24 documented as of this encounter
--- OUTSIDE RECORDS SUMMARY | 2024-10-15 17:06 | XMS_ITS | Encounter Summary ---
Author Organization [place] Address [address] [place] [address] Care Team Providers Care Slot Router Name Role Phone Cyndie Eisenberg NP Primary Care Provider + Rodney Natarajan MD Unavailable [phone] Luna Simons MD Unavailable Caroline Duque RN Unavailable [phone] Martha White MD Unavailable [phone] Ankita Park MD Unavailable [phone] Ankita Park MD Unavailable [phone] Jose Zaragoza NP Unavailable +[phone] Luna Simons MD Unavailable Nadja Hagen MD Unavailable [phone] Batool Atkinson PhD LP Unavailable [phone] Pricsa Miller MD Unavailable [phone] Jennyfer Steele APRN GEAR TESTER Unavailable +[phone] Jennyfer Steele APRN GEAR TESTER Unavailable +[phone] Sadaf Apple NP Unavailable Unavailable [facility] Unavailabl e Yamel Saha PA-C Unavailable [phone] Luna Simons MD Unavailable Encounter Details Date Type Department Care Team (Late st Contact Info) Description 12/29/2021 MyC Medical Advice [facility] Cancer [address] [phone] Caroline Duque, RN Social History Tobacco Use Types Packs/Day [...] Description 09/15/2025 9:15 AM CDT Ancillary Procedure [facility] Breast Center Imaging [address] 2nd [place] [phone] Luna Simons MD [address] [place] [address] 974185 09/15/2025 10:00 AM CDT Oncology Visit [facility] Cancer [address] [phone] Luna Simons MD [address] [place] [address] documented as of this encounter Visit Diagnoses Not on filedocumented in this encounter Additional Health Concerns Infection Onset Date Last Indicated Resolved Time Rule Out COVID-19 01/24/2023 01/24/2023 01/24/2023 10:32 PM CDT Assessment Noted Time PHQ-9 Depression Total Score: 12 02/2 022 8:00 AM BLOCK INSPECTOR documented as of this encounter Care Teams Slot Router Relationship Specialty Start Date End Date Cyndie Eisenberg, AMANDA [address] [place] [address] PCP - General 09/25/19 Rodney Natarajan MD 420 [facility] 195 [place] [address] General Surgery 09/25/19 Luna Simons MD 420 [facility] 480 [place], [place] 043245 MD Hematology 09/25/19 Caroline Duque, ASHLIE Specialty Senior Java Architect Breast Oncology 09/30/19 Martha White MD [facility] [place] [address] [address] [place], [place] 630834 supervisor real estate office 11/01/19 Ankita Park MD [address] [place] [address] Assigned Behavioral Health Provider 05/03/20 06/29/23 Ankita Park MD [address] [place] [address] supervisor real estate office 06/10/20 Jose Zaragoza, CUSTOM FRAMING SPECIALIST 6405 [facility] [place] [address] Assigned Heart and Vascular Provider 11/08/20 02/04/22 Luna Simons MD 420 [facility] 480 [place], [place] [address] Assigned Cancer Care Provider 09/12/21 01/18/24 Nadja Hagen MD 23[address] S [facility] Floor 2, [address] [place], [place] 7[address] Resident Psychiatry 04/01/22 05/13/24 Batool Atkinson, PhD LP [address] [place] [address] [address] [place], [place] 350134 Psychologist Licensed Mental Health 04/01/22 Prisca Miller MD 516 [facility] 295 [place] [address] Resident Neurology 02/10/23 Jennyfer Steele APRN GEAR TESTER 2312 S [facility] [place] [address] [place], [place] 0[address] Nurse Practitioner Psychiatry 02/23/23 Jennyfer Steele APRN GEAR TESTER [address], [place] [address] [place] [address] Assigned Behavioral Health Provider 06/30/23 Sadaf Apple NP Assigned PCP 07/21/23 09/18/[address] [address] Assigned PCP 09/19/23 Yamel Saha PA-C 420 [facility] 480 [place] [address] Assigned Cancer Care Provider 01/19/24 04/19/24 Luna Simons MD 420 [facility] 480 [place] [address] Assigned Cancer Care Provider 04/20/24 documented as of this encounter
--- OUTSIDE RECORDS SUMMARY | 2024-10-15 17:06 | XMS_ITS | Encounter Summary ---
Author Organization [place] Address [address] [place] [address] Care Team Providers Care Director Food And Beverage Name Role Phone Cyndie Eisenberg NP Primary Care Provider + Rodney Natarajan MD Unavailable [phone] Luna Simons MD Unavailable Caroline Duque RN Unavailable [phone] Martha White MD Unavailable [phone] Ankita Park MD Unavailable [phone] Batool Atkinson PhD LP Unavailable [phone] Prisca Miller MD Unavailable [phone] Jennyfer Steele APRN IMAGING MANAGER Unavailable +[phone] Jennyfer Steele APRN IMAGING MANAGER Unavailable +[phone] [facility] Unavailabl e Luna Simons MD Unavailable [phone] Encounter Details Date Type Department Care Team (Late st Contact Info) Description 09/13/2024 Cortney Singh [facility] 909 [place] [address] Radhika Dyer RN Social History [...] week 06/22/2023 How often do you attend [facility]? More than 4 times per year [...] Answer Date Recorded PHQ-2 Score 0 09/10/2024 [facility]ational [facility] Questionnaire Answer Date [...] in an abandoned building, in an overnight long term, or couch-surfing.) Yes 06/22/2023 Are you worried [...] Ancillary Procedure [facility] Imaging [address] 2nd [place] [address] Luna Simons MD [address] [place] [address] 247485 09/15/2025 10:00 AM CDT Oncology Visit [facility] [address] [place] [address] Luna Simons MD [address] [place] [address], [place] 5[address]85 documented as of this encounter Visit Diagnoses Not on filedocumented in this encounter Additional Health Concerns Assessment Noted Time PHQ-9 Depression Total Score: 0 09/11/19 25 9:09 AM CDT documented as of this encounter Care Teams Director Food And Beverage Relationship Specialty Start Date End Date Cyndie Eisenberg NP [address] [place] [address] PCP - General 09/25/19 Rodney Natarajan MD 420 [facility] 195 [place], [place] 247525 General Surgery 09/25/19 Luna Simons MD 420 [facility] 480 [place], [place] 987545 Hematology 09/25/19 Caroline Duque, RN Specialty Document Processing Specialist Breast Oncology 09/30/19 Martha White MD [address] [place] [address] [address] [place], [place] 833164 shoe stainer 11/01/19 Ankita Park MD 2450 [facility] [address] [place] [phone] shoe stainer 06/10/20 Batool Atkinson, PhD LP 2450 [facility] [address] [place], [place] 164464 Psychologist Licensed Mental Health 04/01/22 Prisca Miller MD 516 [facility] 295 [place] [address] Resident Neurology 02/10/23 Jennyfer Steele APRN IMAGING MANAGER [address] [place], [place] 78[address] [place], [place] 876934 Nurse Practitioner Psychiatry 02/23/23 Jennyfer Steele APRN IMAGING MANAGER [address] [place], [place] [address] [place], [place] [address]774 Assigned Behavioral Health Provider 06/30/23 [facility] [address] [place] [address] [id number] Assigned PCP 09/19/23 Luna Simons MD [address] [place] [address] 480 [place], [place] [phone] Assigned Cancer Care Provider 04/20/24 documented as of this encounter
--- OUTSIDE RECORDS SUMMARY | 2024-10-15 17:07 | XMS_ITS | Encounter Summary ---
Author Organization [facility] Address [address] [place] [address] Care Team Providers Care Head Wood Grinder Name Role Phone Cyndie Eisenberg NP Primary Care Provider + Rodney Natarajan MD Unavailable [phone] Luna Simons MD Unavailable [phone] Caroline Duque RN Unavailable [phone] Martha White MD Unavailable [phone] Ankita Park MD Unavailable [phone] Ankita Park MD Unavailable [phone] Luna Simons MD Unavailable [phone] Nadja Hagen MD Unavailable [phone] Batool Atkinson PhD LP Unavailable [phone] Prisca Miller MD Unavailable [phone] Jennyfer Steele APRN TROUBLE TRACER Unavailable +[phone] Jennyfer Steele APRN TROUBLE TRACER Unavailable + [phone] Sadaf Apple NP Unavailable Unavailable [facility] Unavailabl e Yamel Saha PA-C Unavailable [phone] Luna Simons MD Unavailable [phone] Reason for Visit * Reason Onset Date Comments Refill Request 07/25/2022 Encounter Details Date Type Department Care Team (Late st Contact Info) Description 07/25/2022 MyC Refill [facility] Addiction [address] [address] Ankita Park MD 2550 [facility] [place] [address] Refill Request Social History Tobacco [...] Exposure Response Date Recorded In the last 10 days, have yo u been in contact with someone who was confirmed or suspected to have Coronavirus/COVID-19? No / Unsure 07/11/2022 8:30 AM SYSTEMS DEVELOPER documented as of this encounter Miscellaneous Notes * Telephone Encounter - Nikkie Diane RN - 08/03/2022 4:13 PM CST Client decided she would like to start the Chantix now and do the Cymbalta increase later. Refills of the 20 mg and 60 mg caps sent to pharmacy. Nikkie Diane RN on 08/03/2022 at 4:14 PM EMS DEVELOPER * Telephone Encounter - Nikkie Diane RN - 08/03/2022 11:25 AM SYSTEMS DEVELOPER Images from the original note were not included. Ankita Park MD Labossiere, Laura, RN Caller: Unspecified (1 week ago) Andrew Lundy It is ok for this pt to: A) increase Cymbalta to 90mg B) start taking Chantix But, I don't want to do both at the same time. She will need to tell us which change she wants to do first. I do want to remind her of this history: Mar 2020 increased to 90mg d/t anxiety; ?? Jun 2020 Cymbalta reduced to 60mg d/t headaches, foggy feeling and HTN w/Cymbalta 90mg; ??August 2020 inc to 80mg d/t return of sadness and anxiety; ??Jan 2021 dec back to 60mg d/t cognitive concerns, then back to 80mg She has been up and down on Cymbalta doses but at one point she did not tolerate 90mg. She is welcome to try this again and if she does increase the dose, I would ask for 2 BP readings aweek for 3 weeks and MyC those values to us or we will contact her for the values. THX Please LMK what she wants to do next. *Jewel Cupping Machine Operator contacted client in 08/02 Combinature Biopharmhart encounter to confirm if she'd like to start Chantix first or increase the Cymbalta first Nikkie Diane RN on 08/03/2022 at 11:25 AM EMS DEVELOPER * Telephone Encounter - Nikkie Diane, RN - 08/03/2022 7:25 AM CST Please see additional MyChart encounter from 07/25/22 for client's request to increase Cymbalta and the required information needed from the patient before making an increase. Today, client is requesting a refill of her current dose (20 mg caps + 60 mg caps) to avoid runningout before the appt on 08/23. She provided blood pressure readings as listed in her most recent message. Will pend orders for duloxetine 20 mg and [address] forward to Dr. Park for review and approval. Will confirm if she would like additional blood pressure readings over the next few weeks prior to client's appt on 08/23. Nikkie Diane RN on 08/03/2022 at 7:33 AM EMS DEVELOPER documented in this encounter Plan of Treatment Upcoming Encounters Date Type Department Care Team (Late st Contact Info) Description 09/15/2025 9:15 AM CDT Ancillary Procedure [facility] Breast Center Imaging [place] 909 [facility] 2nd [place] [phone] Luna Simons MD [address] [place] [address] 480 [place], [place] [phone] 09/15/2025 10:00 AM CDT Oncology Visit [facility] 909 [place] [address] Luna Simons MD [address] [place] [address] 480 [place], [place] 742985 documented as of this encounter Visit Diagnoses Diagnosis Anxiety Anxiety state, unspecified documented in this encounter Additional Health Concerns Infection Onset Date Last Indicated Resolved Time Rule Out COVID-19 01/24/2023 01/24/2023 01/24/2023 10:32 PM CDT Assessment Noted Time PHQ-9 Depression Total Score: 22 022 3:25 PM SYSTEMS DEVELOPER documented as of this encounter Care Teams Head Wood Grinder Relationship Specialty Start Date End Date Cyndie Eisenberg NP [address] [place] [address] PCP - General 09/25/19 Rodney Natarajan MD [address] [place] [address] 195 [place], [place] 06[address] General Surgery 09/25/19 Luna Simons MD 420 [facility] 480 [place] [address] Hematology 09/25/19 Caroline Duque, RN Specialty Quality Control Manager Breast Oncology 09/30/19 Martha White MD [address] [place] [address] [address] [place] [address] csr retail 11/01/19 Ankita Park MD [facility]0 [address] [address] Assigned Behavioral Health Provider 05/03/20 06/29/23 Ankita Park MD [facility] [address] [address] csr retail 06/10/20 Luna Simons MD [address] [place] [address] 480 [place] [address] Assigned Cancer Care Provider 09/12/21 01/18/24 Nadja Hagen MD [facility] [address] Floor 2, [address] [place] [address] Resident Psychiatry 04/01/22 05/13/24 Batool Atkinson, PhD LP [facility]0 [facility] [address] [place] [address] Psychologist Licensed Mental Health 04/01/22 Prisca Miller MD 6 [facility] 295 [place] [address] Resident Neurology 02/10/23 Jennyfer Steele APRN TROUBLE TRACER [address] [facility] [place] [address] [place] [address] Nurse Practitioner Psychiatry 02/23/23 Jennyfer Steele APRN TROUBLE TRACER [address] [place], [place] [address] Assigned Behavioral Health Provider 06/30/23 Sadaf Apple NP Assigned PCP 07/21/23 09/18/23 [facility] [address] [place] [address] Assigned PCP 09/19/23 Yamel Saha PA-C [address] [place] [address] 092845 Assigned Cancer Care Provider 01/19/24 04/19/24 Luna Simons MD [address] [place] [address] 466995 Assigned Cancer Care Provider 04/20/24 documented as of this encounter
--- OUTSIDE RECORDS SUMMARY | 2024-10-15 17:07 | XMS_ITS | Encounter Summary ---
Author Organization [place] Address [address] [place] [address] Care Team Providers Care Parquetry Floor Layer Name Role Phone Cyndie Eisenberg NP Primary Care Provider + Rodney Natarajan MD Unavailable [phone] Luna Simons MD Unavailable [phone] Caroline Duque RN Unavailable [phone] Martha White MD Unavailable [phone] Ankita Park MD Unavailable [phone] Ankita Park MD Unavailable [phone] Luna Simons MD Unavailable [phone] Nadja Hagen MD Unavailable [phone] Batool Atkinson PhD LP Unavailable [phone] Prisca Miller MD Unavailable [phone] Jennyfer Steele APRN DRAWER IN JACQUARD LOOM Unavailable +[phone] Jennyfer Steele APRN DRAWER IN JACQUARD LOOM Unavailable + [phone] Sadaf Apple NP Unavailable Unavailable [facility] Unavailabl e Yamel Saha PA-C Unavailable [phone] Luna Simons MD Unavailable [phone] Encounter Details Date Type Department Care Team (Late st Contact Info) Description 07/29/2022 MyC Medical Advice [facility] Cancer [address] [phone] Talita Bradshaw Social History Tobacco Use Types [...] Coronavirus/COVID-19? No / Unsure 07/11/2022 8:30 AM BILLER documented as of this encounter Plan of Treatment Upcoming Encounters Date Type Department Care Team (Late st Contact Info) Description 09/15/2025 9:15 AM CDT Ancillary Procedure [facility] Breast Center Imaging [address] 2nd [place] [phone] Luna Simons MD [address] [place] [address] 111275 09/15/2025 10:00 AM CDT Oncology Visit [facility] Clinic [address] [place] [phone] Luna Simons MD [address] [place] [address] 936285 documented as of this encounter Visit Diagnoses Not on filedocumented in this encounter Additional Health Concerns Infection Onset Date Last Indicated Resolved Time Rule Out COVID-19 01/24/2023 01/24/2023 01/24/2023 10:32 PM CDT Assessment Noted Time PHQ-9 Depression Total Score: 22 022 3:25 PM BILLER documented as of this encounter Care Teams Parquetry Floor Layer Relationship Specialty Start Date End Date RafaelmemeCyndie funk, INVENTORY ASSOCIATE [address] [place] [address] PCP - General 09/25/19 Rodney Natarajan MD 420 [facility] 195 [place], [place] 3217[address] General Surgery 09/25/19 Luna Simons MD 420 [facility] 480 [place], [place] 520815 Hematology 09/25/19 Caroline Duque, ASHLIE Specialty Fur Nailer Breast Oncology 09/30/19 Martha White MD 2312 S [facility] [place] [address] [place], [place] [address] monorail operator 11/01/19 Ankita Park MD [address] [place] [phone] Assigned Behavioral Health Provider 05/03/20 06/29/23 Ankita Park MD [address] [place] [phone] monorail operator 06/10/20 Luna Simons MD 420 [facility] 480 [place], [place] 517675 Assigned Cancer Care Provider 09/12/21 01/18/24 Nadja Hagen MD [address] [facility] Floor 2, [address] [place], [place] [address] Resident Psychiatry 04/01/22 05/13/24 [place] [address] [place], [place] [address] [place], [place] [address] Psychologist Licensed Mental Health 04/01/22 Prisca Miller MD 6 [facility] 295 [place], [place] 3469[address] Resident Neurology 02/10/23 Jennyfer Steele APRN DRAWER IN JACQUARD LOOM [address] [place] [address] [address] [place], [place] 509974 Nurse Practitioner Psychiatry 02/23/23 Jennyfer Steele APRN DRAWER IN JACQUARD LOOM [address] [place] [address] [address]275 [place], [place] 724044 Assigned Behavioral Health Provider 06/30/23 Sadaf Apple NP Assigned PCP 07/21/23 09/18/23 [facility] [address] [place] [address] Assigned PCP 09/19/23 Yamel Saha PA-C 420 [facility] 480 [place], [place] 495888 Assigned Cancer Care Provider 01/19/24 04/19/24 Luna Simons MD 420 [facility] 480 [place], [place] 97[address] Assigned Cancer Care Provider 04/20/24 documented as of this encounter
--- OUTSIDE RECORDS SUMMARY | 2024-10-15 17:07 | XMS_ITS | Encounter Summary ---
Author Organization [facility] Address [address] [place] [address] Care Team Providers Care Thermal Molder Name Role Phone Cyndie Eisenberg NP Primary Care Provider + Rodney Natarajan MD Unavailable [phone] Luna Simons MD Unavailable Caroline Duque RN Unavailable [phone] Martha White MD Unavailable Pedrito Ramirez MD Unavailable [phone] Rodney Natarajan MD Unavailable [phone] Ankita Park MD Unavailable [phone] Ankita Park MD Unavailable [phone] Luna Simons MD Unavailable [phone] Jose Zaragoza NP Unavailable Mio Mclean MD Unavailable [phone] Luna Simons MD Unavailable [phone] Nadja Hagen MD Unavailable [phone] Batool Atkinson PhD LP Unavailable [phone] Prisca Miller MD Unavailable Jennyfer Steele APRN MANUFACTURING ENGINEERING TECHNICIAN Unavailable +- Jennyfer Steele SOLAR THERMAL INSTALLER MANUFACTURING ENGINEERING TECHNICIAN Unavailable + Sadaf Apple NP Unavailable Unavailable [facility] Unavailabl e Yamel Saha PA-C Unavailable Luna Simons MD Unavailable [phone] Encounter Details Date Type Department Care Team (Late Contact Info) Description 08/19/[address] [facility] Cancer [address] [address] Talita Bradshaw Social History Tobacco Use Types [...] have Coronavirus / COVID-19? No / Unsure 08/18/2020 8:28 AM CDT documented as of this encounter Plan of Treatment Upcoming Encounters Date Type Department Care Team (Late st Contact Info) Description 09/15/2025 9:15 AM CDT Ancillary Procedure [facility] Breast Center Imaging [address] 2nd [place] [address] Luna Simons MD [address] [place] [address] 09/15/2025 10:00 AM CDT Oncology Visit [facility] Cancer [address] [address] Luna Simons MD [address] [place] [address] documented as of this encounter Visit Diagnoses Not on filedocumented in this encounter Additional Health Concerns Infection Onset Date Last Indicated Resolved Time Rule Out COVID-19 01/24/2023 01/24/2023 01/24/2023 10:32 PM CDT documented as of this encounter Care Teams Thermal Molder Relationship Specialty Start Date End Date Cyndie Eisenberg NP [address] [place] [address] PCP - General 09/25/19 Rodney Natarajan MD 420 [facility] 195 [place], [place] 464235 General Surgery 09/25/19 Luna Simons MD 420 [facility] [facility] 480 [place], [place] [address] Hematology 09/25/19 Caroline Duque, RN Specialty Credit Cashier Breast Oncology 09/30/19 Martha White MD [address] [place] [address] [address] [place], [place] 532434 precision honer 11/01/19 Pedrito Ramirez MD 6405 [facility] [address] [place] [address] Assigned Heart and Vascular Provider 03/20/20 11/07/20 Rodney Natarajan MD 420 [place] [facility] 195 [place], [place] 213525 Assigned Surgical Provider 03/20/20 08/07/21 Ankita Park MD [facility] [place], [place] [phone] Assigned Behavioral Health Provider 05/03/20 06/29/23 Ankita Park MD 2450 [facility] [address] [phone] precision honer 06/10/20 Luna Simons MD 420 [facility] 480 [place], [place] 85[address] Assigned Cancer Care Provider 07/26/20 06/26/21 Jose Zaragoza NP 6405 [facility] [place] [address] Assigned Heart and Vascular Provider 11/08/20 02/04/22 Mio Mclean MD 420 [facility] 494 [place], [place] 34[address]85 Assigned Cancer Care Provider 06/27/21 09/11/21 Luna Simons MD 420 [facility] 480 [place] [address] Assigned Cancer Care Provider 09/12/21 01/18/24 Nadja Hagen MD [address] Floor 2, [address] [place], [place] [address] Resident Psychiatry 04/01/22 05/13/24 Batool Atkinson, PhD LP [address] [place] [address] [address] [place], [place] 411[address] Psychologist Licensed Mental Health 04/01/22 Prisca Miller MD 516 [facility] 295 [place] [address] Resident Neurology 02/10/23 Jennyfer Steele APRN MANUFACTURING ENGINEERING TECHNICIAN [address] [place] [address] F275 [place] [address] Nurse Practitioner Psychiatry 02/23/23 Jennyfer Steele APRN MANUFACTURING ENGINEERING TECHNICIAN [address] [place] [address] F275 [place] [address] Assigned Behavioral Health Provider 06/30/23 Sadaf Apple NP Assigned PCP 07/21/23 09/18/23 [facility] [address] [place] [address] Assigned PCP 09/19/23 Yamel Saha PA-C 420 [facility] 480 [place], [place] 99[address] Assigned Cancer Care Provider 01/19/24 04/19/24 Luna Simons MD 420 [facility] 480 [place], [place] [address]805 Assigned Cancer Care Provider 04/20/24 documented as of this encounter
--- OUTSIDE RECORDS SUMMARY | 2024-10-15 17:07 | XMS_ITS ---
Author Organization [facility] Address [address] [place] [address] Care Team Providers Care Barrel Turner Name Role Phone Cyndie Eisenberg NP Primary Care Provider + Rodney Natarajan MD Unavailable [phone] Luna Simons MD Unavailable Caroline Duque RN Unavailable [phone] Martha White MD Unavailable Ankita Park MD Unavailable [phone] Batool Atkinson PhD LP Unavailable Prisca Miller MD Unavailable Jennyfer Steele APRN DIRECTOR OF ACADEMIC SUPPORT Unavailable [phone] Jennyfer Steele APRN DIRECTOR OF ACADEMIC SUPPORT Unavailable [phone] [facility] Unavailabl e Luna Simons MD Unavailable Active Problems Problem Noted Date Diagnosed Date Major depression, recurrent 04/30/2024 Pyelonephritis, acute 01/30/2023 Hypoglycemia 01/30/2023 Tachycardia 10/29/2019 H/O LEEP 09/20/2019 Overview (09/26/2019): 2009 Invasive ductal carcinoma of breast, right 09/19 Overview (01/25/2021): Added automatically from request for surgery [id number] Current Treatment and Therapy Plans No current plan information found. Past Treatment and Therapy Plans ONCOLOGY TREATMENT Plan Name Start Date Discontinue Date Treatment Medications Discontinue Reason Plan Provider Cycles OP ONC Breast Cancer - Pertuzumab / Trastuzumab / Weekly PACLitaxel 0 01/10/2020 PACLitaxel (TAXOL) infusionpertuzumab (PERJETA) infusiontrastuzumab- anns (KANJINTI)trastuzuma b-anns (KANJINTI) infusion Therapy Complete Luna Simons MD 4 of 5 cycles started Lifetime Dose Tracking * Chemical Lifetime Dose Automatic Entry Manual Entr y DLP 1.01 mGy*cm 1.01 mGy*cm 0 mGy*cm Treatment Summaries Invasive ductal carcinoma of breast, right (H)* Cancer Treatment Plan and Summary - Breast Provided by [facility] General Information Patient Name Anjelica Matthew Patient 1980 Patient phone [phone] (home) Email [email or web address] Care Team Primary Care Provider Cyndie Eisenberg Surgeon Rodney Natarajan MD, Chava Hein MD ([facility]) Radiation Oncologist Mio Mclean MD Medical Oncologist Luna Simons Cancer Diagnosis Information Diagnosis Invasive ductal carcinoma of breast, right (H) Diagnosis Date 09/13/2019 Staging Information T2N0, stage 2A right breast cancer ER + DC + Her2 + Estrogen Positive Progesterone Positive HER2 Positive Familial Cancer Risk Assessment Genetic Counseling Yes Genetic Testing Yes Results Negative RESULTS: NEGATIVE Pathogenic/Likely Pathogenic Variant(s): None Detected Variant(s) of Uncertain Significance: None Detected Treatment Summary Surgery Right breast needle core biopsy Biopsy Date: 09/13/2019 Right wire localized lumpectomy with sentinel lymph node biopsy Surgery Date: 01/21/2020 Pathology Infiltrating ductal carcinoma with DCIS -No residual invasive carcinoma -DCIS, grade 3, 8 mm Radiation Yes Body Area Treated 5490 cGY to right breast End Date (year) 04/03/2020 Systemic Yes Chemotherapy Lifetime Dose Tracking No doses have been documented on this patient for the following tracked chemicals: Doxorubicin, Epirubicin, Idarubicin, Daunorubicin, Mitoxantrone, Bleomycin Treatment Plan: OP ONC Breast Cancer - Pertuzumab / Trastuzumab / Weekly PACLitaxel Chemotherapy: PACLitaxel (TAXOL) 134 mg in sodium chloride 0.9 % 297 mL infusion, Administration: 134 mg (10/01/2019), 134 mg (10/08/2019), 134 mg (10/15/2019), 134 mg (10/23/2019), 134 mg (11/05/2019), 134 mg (11/12/2019), 134 mg (11/19/2019), 134 mg (11/26/2019), 134 mg (12/03/2019), 134 mg(12/10/2019), 134 mg (12/17/2019), 134 mg (12/24/2019) pertuzumab (PERJETA) 840 mg in sodium chloride 0.9 % 303 mL infusion, Administration: 840 mg (10/01/2019), 420 mg (10/23/2019), 420 mg (11/19/2019), 420 mg (12/10/2019) trastuzumab-anns (KANJINTI) 510 mg in sodium chloride 0.9 % 300 mL infusion, Administration: 510 mg (10/01/2019), 380 mg (10/23/2019), 380 mg (11/19/2019), 380 mg (12/10/2019) Treatment Plan Start Date: 10/01/2019 Treatment Plan Last Day: 12/24/2019 Treatment Plan: OP ONC Breast Cancer - TRASTuzumab EVERY 3 WEEKS Chemotherapy: trastuzumab-anns (KANJINTI) 370 mg in sodium chloride 0.9 % 293 mL infusion, Administration: 370 mg (01/10/2020), 372 mg (01/31/2020), 372 mg (02/21/2020), 372 mg (03/13/2020), 370mg (04/03/2020), 370 mg (04/22/2020), 370 mg (05/13/2020), 370 mg (06/03/2020), 370 mg (07/07/2020), 370mg (07/28/2020), 370 mg (08/18/2020), 370 mg (09/08/2020), 370 mg (09/29/2020) Treatment Plan Start Date: 01/10/2020 Treatment Plan Last Day: 09/29/2020 Treatment Ongoing None currently but will be discussing aromatase inhibitors. Side effects include hot flashes, vaginal dryness, risk of loss of bone density over time, joint aches and pains. Follow-up Care Plan Your follow up care plan is designed to inform you and your primary care provider the recommended and suggested follow up, cancer screening and routine health maintenance that is needed to maintain optimal health. Possible late and/or residential effects that someone with this type of cancer and treatment may experience: bone effects heart effects pain lymphedema nervous system changes Coordinating Provider When/How Often Primary Care Provider Please continue to see your primary care provider for all general health carerecommended for a patient your age, including cancer screening tests. Any symptoms should be brought to the attention of your provider. Medical Oncologist Every 3 to 6 months for the first 3 years, every 6 months for years 4 and 5, andannually thereafter Radiation Oncologist As directed Surgeon As directed Other See eye doctor and dentist routinely Cancer Surveillance or Other Recommended Related Tests Test What/When/How Often Mammogram Once a year; not indicated routinely for patients with bilateral mastectomies Bone Density Every 2 years if on an aromatase inhibitor or as indicated by your provider Breast MRI As indicated by provider Pelvic exam Yearly for Tamoxifen use only Cancer survivors may experience issues with the areas listed below. If you have any concerns in these or other areas, please speak with your providers or nurses to find out how you can get help with them. Anxiety or depression Emotional and mental health Fatigue Financial advice or assistance Insurance Lymphedema Memory or concentration loss Parenting Physical functioning School or work Sexual functioning Stopping smoking Weight changes Other A number of lifestyle/behaviors can affect your ongoing health, including the risk for the cancer coming back or developing another cancer. Discuss these recommendations with your provider or nurse: Alcohol use: No more than 1 alcoholic beverage/day for women and no more than 2 alcoholic beverages/day for men. Diet: Recommend diet high in fruits, vegetables, whole grains and low in fats, sugars, and red and processed meats. Physical activity: Recommend 150 minutes of moderate intensity exercise per week and strength/resistance exercise at least 2 times per week. Sun safety: Recommend sunscreen with a minimum SPF of 30, reapply every 2 hours when outside for prolonged periods of time. Consider using hats, shirts with sleeves, and avoiding direct sun during peak times (generally 10 am- 2 pm). Avoid tanning beds. Tobacco use/cessation: Recommend avoiding tobacco use. If using tobacco, recommend contacting Quit Partner at www.quitpartClinical Innovations.com and considering the use of nicotine replacement and/or medications like bupropion or Chantix. Weight management (loss/gain): Recommend a body mass index (BMI) of 18.5-24.9. If not within this range, recommend seeing a meat washer to discuss way to get into this range with diet changes. Resources you may be interested in: [place] [employer] www.cancer.org [facility] Cancer Survivorship https://survivorship.[facility] Thrive Cancer Survivorship class series https://survivorship.[facility]/nxbjfb-riuocr-leduavciwugu-class-series [place] Society of Clinical Oncology www.asco.org/practice-guidelines/resources-patients National Cancer [place] www.cancer.gov [employer] www.livestrong.org MHealth www.mhealth.org/care/overarching-care/qijjfx-dvzd-jqcmd/support-services www.cancer.net [place] for Cancer Research www.aicr.org This Survivorship Care Plan is a cancer treatment summary and follow up plan and is provided to youto keep with your health care records and to share with your primary care provider or any of your other providers. Resolved Problems Problem Noted Date Diagnosed Date Resolved Date Episode of altered cognition 01/30/2023 06/22/2024 Anxiety 09/26/2019 06/22/2024 IUD (intrauterine device) in place 09/26/2019 12/22/2022
--- OUTSIDE RECORDS SUMMARY | 2024-10-15 17:07 | XMS_ITS | Encounter Summary ---
Author Organization [facility] Address [address] [place] [address] Care Team Providers Care Line Service Person Name Role Phone Cyndie Eisenberg NP Primary Care Provider + Rodney Natarajan MD Unavailable [phone] Luna Simons MD Unavailable [phone] Caroline Duque RN Unavailable [phone] Martha White MD Unavailable [phone] Ankita Park MD Unavailable [phone] Ankita Park MD Unavailable [phone] Luna Simons MD Unavailable [phone] Nadja Hagen MD Unavailable [phone] Batool Atkinson PhD LP Unavailable [phone] Prisca Miller MD Unavailable [phone] Jennyfer Steele APRN CONTACT ASSEMBLER Unavailable [phone] Jennyfer Steele APRN CONTACT ASSEMBLER Unavailable [phone] Sadaf Apple NP Unavailable Unavailable [facility] Unavailabl e Yamel Saha PA-C Unavailable [phone] Luna Simons MD Unavailable [phone] Encounter Details Date Type Department Care Team (Late st Contact Info) Description 02/02/2023 MyC Medical Advice [address] [address] Lani Mahajan Social History Tobacco Use Types Packs/Day Years Used Date Smoking Tobacco: Never Smokeless Tobacco: Never Alcohol Use Standard Drinks/Week Comments Yes 0 (1 standard drink = 0.6 oz pur e alcohol) rare PHQ-2 Answer Date Recorded PHQ-2 Score 1 12/07/2022 Comments No Sex and Gender Information Value Date Recorded Sex Assigned at Not on file Legal Sex Female 9:05 AM CDT Gender Identity Not on file Sexual Orientation Not on file COVID-19 Exposure Response Date Recorded In the last 10 days, have yo u been in contact with someone who was confirmed or suspected to have Coronavirus/COVID-19? No / Unsure 01/30/2023 2:38 PM CDT documented as of this encounter Plan of Treatment Upcoming Encounters Date Type Department Care Team (Late st Contact Info) Description 09/15/2025 9:15 AM CDT Ancillary Procedure [facility] [address] 2[address] [place] [address] Luna Simons MD [address] [place] [address] [phone] 09/15/2025 10:00 AM CDT Oncology [facility] [address] [place] [phone] Luna Simons MD [address] [place] [phone] documented as of this encounter Visit Diagnoses Not on filedocumented in this encounter Additional Health Concerns Assessment Noted Time PHQ-9 Depression Total Score: 22 022 3:25 PM TRANSITION MGR documented as of this encounter Care Teams Line Service Person Relationship Specialty Start Date End Date Cyndie Eisenberg NP [address] [place] [address] PCP - General 09/25/19 Rodney Natarajan MD [address] [facility] [address] [place] [address] General Surgery 09/25/19 Luna Simons MD [address] [facility] [address] [place] [address] MD Hematology 09/25/19 Caroline Duque, ASHLIE Specialty Party Plan Sales Director Breast Oncology 09/30/19 Martha White MD [address] [place] [place] [address] infection control preventionist 11/01/19 Ankita Park MD [address] [place] [phone] Assigned Behavioral Health Provider 05/03/20 06/29/23 Ankita Park MD [address] [place] [phone] infection control preventionist 06/10/20 Luna Simons MD [address] [facility] [address] [place] [address] Assigned Cancer Care Provider 09/12/21 01/18/24 Nadja Hagen MD [address] [place] [address] Resident Psychiatry 04/01/22 05/13/24 Batool Atkinson, PhD LP [address] [facility] [address] [place], [place] [address] Psychologist Licensed Mental Health 04/01/22 Prisca Miller MD 516 [facility] [address] [place] [address] Resident Neurology 02/10/23 Jennyfer Steele APRN CONTACT ASSEMBLER [address] [facility] [place] [address] [place] [address] Nurse Practitioner Psychiatry 02/23/23 Jennyfer Steele APRN CONTACT ASSEMBLER [address] [facility] [address] [place] [address] Assigned Behavioral Health Provider 06/30/23 Sadaf Apple NP Assigned PCP 07/21/23 09/18/23 [facility] [id number] [place] [address] Assigned PCP 09/19/23 Yamel Saha PA-C 420 [facility] [address] [place] [address] Assigned Cancer Care Provider 01/19/24 04/19/24 Luna Simons MD [address] [facility] [address] [place], [place] 2265[address] Assigned Cancer Care Provider 04/20/24 documented as of this encounter
--- OUTSIDE RECORDS SUMMARY | 2024-10-15 17:07 | XMS_ITS | Encounter Summary ---
Author Organization [facility] Address [address] [place] [address] Care Team Providers Care Clinical Administrator Name Role Phone Cyndie Eisenberg NP Primary Care Provider + Rodney Natarajan MD Unavailable [phone] Luna Simons MD Unavailable [phone] Caroline Duque RN Unavailable [phone] Martha White MD Unavailable [phone] Ankita Park MD Unavailable [phone] Ankita Park MD Unavailable [phone] Luna Simons MD Unavailable [phone] Nadja Hagen MD Unavailable [phone] Batool Atkinson PhD LP Unavailable [phone] Prisca Miller MD Unavailable [phone] Jennyfer Steele APRN RETAIL GENERAL MANAGER Unavailable +[phone] Jennyfer Steele APRN RETAIL GENERAL MANAGER Unavailable + [phone] Sadaf Apple NP Unavailable Unavailable [facility] Unavailabl e Yamel Saha PA-C Unavailable [phone] Luna Simons MD Unavailable [phone] Reason for Visit * Reason Onset Date Comments Refill Request 11/24/2022 ADDERALL XR 10 M G 24 hr capsule Encounter Details Date Type Department Care Team (Late st Contact Info) Description 11/24/2022 MyC Refill [facility] [address] [address] Ankita Park MD [address] [place] [address] [address] Refill Request (ADDERALL XR 10 MG 24 hr ca... Social History Tobacco Use Types Packs/Day Years Used Date Smoking Tobacco: Never Cigarettes Smokeless Tobacco: Never Alcohol Use Standard Drinks/Week Comments Yes 0 (1 standard drink = 0.6 oz pur e alcohol) rare PHQ-2 Answer Date Recorded PHQ-2 Score 0 09/02/2022 Comments No Sex and Gender Information Value Date Recorded Sex Assigned at Not on file Legal Sex Female 9:05 AM CDT Gender Identity Not on file Sexual Orientation Not on file documented as of this encounter Miscellaneous Notes * Telephone Encounter - Catia Camacho RN - 11/24/2022 12:14 PM CDT Last seen: 08/23/22 RTC: October or November Cancel: 09/07/22 No-show: 0 Next appt: 12/07/22 Medication requested: ADDERALL XR 10 MG 24 hr capsule Directions: Take one cap in the morning (10mg) and one cap in the afternoon (10mg) Qty: 60 Last refilled: 09/16, 08/18, 06/22 per [place] PDMP *Per chart, rx written 11/11/22 that has not yet been utilized for [place] PDMP refill hx. documented in this encounter Plan of Treatment Upcoming Encounters Date Type Department Care Team (Late st Contact Info) Description 09/15/2025 9:15 AM CDT Ancillary Procedure [facility] [address] [place] [phone] Luna Simons MD 420 [facility] [address] [place], [place] [phone] 09/15/2025 10:00 AM CDT Oncology Visit [facility] [address] [place] [address] Luna Simons MD [address] [facility] [address] [place] [address] documented as of this encounter Visit Diagnoses Diagnosis Cognitive complaints Other signs and symptoms involving cognition documented in this encounter Additional Health Concerns Infection Onset Date Last Indicated Resolved Time Rule Out COVID-19 01/24/2023 01/24/2023 01/24/2023 10:32 PM CDT Assessment Noted Time PHQ-9 Depression Total Score: 22 022 3:25 PM HISTORIC SITES REGISTRAR documented as of this encounter Care Teams Clinical Administrator Relationship Specialty Start Date End Date Cyndie Eisenberg, GEOLOGIST [address] [place] [address] PCP - General 09/25/19 Rodney Natarajan MD [address] [place] [address] [address] [place] [address] General Surgery 09/25/19 Luna Simons MD [address] [place] [address] 480 [place] [address] Hematology 09/25/19 Caroline Duque, RN Specialty Automotive Sales Professional Breast Oncology 09/30/19 Martha White MD [address] [facility] [address] [facility] [address] [place], [place] [address] student affairs vice president 11/01/19 Ankita Park MD [facility] [address] [place] [address] [phone] Assigned Behavioral Health Provider 05/03/20 06/29/23 Ankita Park MD [address] [place] [phone] student affairs vice president 06/10/20 Luna Simons MD [address] [place] [address] [address] [place], [place] [phone] Assigned Cancer Care Provider 09/12/21 01/18/24 Nadja Hagen MD [facility] [address], [address] [place] [address] Resident Psychiatry 04/01/22 05/13/24 Batool Atkinson, PhD LP [address] [place], [place] [id number] [place] [address] Psychologist Licensed Mental Health 04/01/22 Prisca Miller MD 516 [facility] [address] [place], [place] [address] Resident Neurology 02/10/23 Jennyfer Steele APRN RETAIL GENERAL MANAGER [address] [facility] [address] [place], [place] 3017[address] Nurse Practitioner Psychiatry 02/23/23 Jennyfer Steele APRN RETAIL GENERAL MANAGER [address] [facility]75 [place], [place] [phone] Assigned Behavioral Health Provider 06/30/23 Sadaf Apple NP Assigned PCP 07/21/23 09/18/23 [facility] [address] [place] [address] Assigned PCP 09/19/23 Yamel Saha PA-C [address] [place] [address] [phone] Assigned Cancer Care Provider 01/19/24 04/19/24 Luna Simons MD [address] [place] [address] Assigned Cancer Care Provider 04/20/24 documented as of this encounter
--- OUTSIDE RECORDS SUMMARY | 2024-10-15 17:07 | XMS_ITS | Encounter Summary ---
Author Organization [place] Address [address] [place] [address] Care Team Providers Care Territory Business Manager Name Role Phone Cyndie Eisenberg NP Primary Care Provider + Rodney Natarajan MD Unavailable [phone] Luna Simons MD Unavailable [phone] Caroline Duque RN Unavailable +[phone] Martha White MD Unavailable [phone] Ankita Park MD Unavailable [phone] Ankita Park MD Unavailable [phone] Luna Simons MD Unavailable [phone] Nadja Hagen MD Unavailable +[phone] Batool Atkinson PhD LP Unavailable [phone] Prisca Miller MD Unavailable [phone] Jennyfer Steele APRN ADMITTANCE ATTENDANT Unavailable +[phone] Jennyfer Steele APRN ADMITTANCE ATTENDANT Unavailable + [phone] Sadaf Apple NP Unavailable Unavailable [facility] Unavailabl e Yamel Saha PA-C Unavailable +[phone] Luna Simons MD Unavailable +[phone] Reason for Visit * Reason Onset Date Comments Medication Question 07/25/2022 Cymbalta and Adderall Encounter Details Date Type Department Care Team (Late st Contact Info) Description 07/25/2022 [facility] [place] [facility] [address] [address] [address] Ankita Park MD [address] [phone] Medication Question (Cymbalta and Adderall) Social History Tobacco Use Types Packs/Day Years [...] Coronavirus/COVID-19? No / Unsure 07/11/2022 8:30 AM DIRECTOR ATHLETIC documented as of this encounter Miscellaneous Notes * Telephone Encounter - Catia Camacho RN - 07/27/2022 2:02 PM CST Vitals per chart: Vitals taken 04/08/22 at [facility]: BP: 114/74 Pulse 74 Vitals taken 04/05/22 at [facility]: BP: 106/80 Pulse: 84 Vitals taken 07/24/21 at [facility]: BP: 112/85 Pulse: 68 Recent Labs: Lab Test 07/11/22 1027 03/22/21 1052 09/29/20 0919 CR 0.89 0.99 0.98 GFRESTIMATED 83 71 72 ?? Lab Test 07/11/2022 1027 03/22/21 1052 09/29/20 0919 AST 23 21 18 ALT 14 26 24 ALKPHOS 96 98 71 ?? DDI: Adderall XR + Cymbalta: CYP2D6 Inhibitors (Moderate) may increase the serum concentration of Amphetamines. Adderall XR + Topamax: Carbonic Anhydrase Inhibitors may decrease the excretion of Amphetamines. Loratadine + Trazodone: ??VOCATIONAL GUIDANCE COUNSELOR Depressants may enhance the adverse/toxic effect of other VOCATIONAL GUIDANCE COUNSELOR Depressants Cymbalta + Adderall: Amphetamines may enhance the serotonergic effect of Serotonergic Agents Cymbalta + Trazodone: TraZODone may enhance the serotonergic effect of Serotonin/Norepinephrine Reuptake Inhibitors.?? Topamax + Trazodone: VOCATIONAL GUIDANCE COUNSELOR Depressants may enhance the adverse/toxic effect of other VOCATIONAL GUIDANCE COUNSELOR Depressants. Topamax + loratadine: Anticholinergic Agents may enhance the adverse/toxic effect of Topiramate.?? Trazodone + Adderall: Amphetamines may enhance the serotonergic effect of Serotonergic Agents CTOR ATHLETIC * Telephone Encounter - Catia Camacho RN - 07/27/2022 1:[address] Park: Before considering increase in Cymbalta will need: ?? -Renal and liver function from the last 12 mos -I would need an updated DDI check -additional vitals are needed we have: 06/24/21 ?115/80 07/2021 ? 114/80 07/11/22 ?115/80 I would need these additional vitals - 2 sets each of next 2 weeks - total 5 sets this year In regards to Adderall: If the Adderall is agitating her, could do down to 10mg now If she thinks she will want to change end of July can go down to 10mg mid July in prep for that CTOR ATHLETIC * Telephone Encounter - Frances Linn RN - 07/26/2022 8:16 AM CST Images from the original note were not included. Sudhir Andino MD Bass, Deanna L, MD; Frances Linn RN Nate Daniels (and eventually Micki), Thank you for sending on this information. I reviewed the attached messages and reviewed the most recent Oncology note by Drs. Paula Munguia and Ned Simons, of 07/11/2022. I also reviewed most recent psychiatric progress note by Dr. Park of 04/05/2022. I think, since Dr. Park is scheduled to be back the day after tomorrow, that we should defer adjustment of Ms. Matthew's Cymbalta dose and whether to discontinue Adderall in favor of another medication for now. ??Please run this by Ms. Matthew to ensure that adequately meets her needs. Many thanks, Sudhir Andino MD Follow up: - relayed the above to patient via [employer] CTOR ATHLETIC documented in this encounter Plan of Treatment Upcoming Encounters Date Type Department Care Team (Late st Contact Info) Description 09/15/2025 9:15 AM CDT Ancillary Procedure [facility] [address] 2nd [place] [phone] Luna Simons MD [address] [place] [address] [phone] 09/15/2025 10:00 AM CDT Oncology Visit [facility] [address] [place] [phone] Luna Simons MD [address] [place] [address] 592175 documented as of this encounter Visit Diagnoses Not on filedocumented in this encounter Additional Health Concerns Infection Onset Date Last Indicated Resolved Time Rule Out COVID-19 01/24/2023 01/24/2023 01/24/2023 10:32 PM CDT Assessment Noted Time PHQ-9 Depression Total Score: 22 022 3:25 PM DIRECTOR ATHLETIC documented as of this encounter Care Teams Territory Business Manager Relationship Specialty Start Date End Date Cyndie Eisenberg NP [address] [place] [address] PCP - General 09/25/19 Rodney Natarajan MD 420 [facility] 195 [place] [address] General Surgery 09/25/19 Luna Simons MD 420 [facility] 480 [place] [address] Hematology 09/25/19 Caroline Duque, ASHLIE Specialty Social Economist Breast Oncology 09/30/19 Martha White MD [address] [place], [place] 260[address] it teacher 11/01/19 Ankita Park MD [address] [place] [phone] Assigned Behavioral Health Provider 05/03/20 06/29/23 Ankita Park MD [address] [place] [phone] it teacher 06/10/20 Luna Simons MD 420 [facility] 480 [place], [place] 842565 Assigned Cancer Care Provider 09/12/21 01/18/24 Nadja Hagen MD [address], [address] [place], [place] 23[address] Resident Psychiatry 04/01/22 05/13/24 Batool Atkinson, PhD LP 2450 [facility] [address] [place], [place] 4833[address] Psychologist Licensed Mental Health 04/01/22 Prisca Miller MD 516 [facility] 295 [place], [place] 765385 Resident Neurology 02/10/23 Jennyfer Steele APRN ADMITTANCE ATTENDANT 2312 [address] [facility] [address] [place] [address] Nurse Practitioner Psychiatry 02/23/23 Jennyfer Steele APRN ADMITTANCE ATTENDANT [address] [facility] [address] [place], [place] [address] Assigned Behavioral Health Provider 06/30/23 Sadaf Apple NP Assigned PCP 07/21/23 09/18/23 [facility] [id number] [place] [address] Assigned PCP 09/19/23 Yamel Saha PA-C 420 [facility] 480 [place], [place] [phone] Assigned Cancer Care Provider 01/19/24 04/19/24 Luna Simons MD 420 [facility] 480 [place] [address] Assigned Cancer Care Provider 04/20/24 documented as of this encounter
--- OUTSIDE RECORDS SUMMARY | 2024-10-15 17:07 | XMS_ITS | Encounter Summary ---
Author Organization [place] Address [address] [place] [address] Care Team Providers Care Swatch Folder Name Role Phone Cyndie Eisenberg NP Primary Care Provider + Rodney Natarajan MD Unavailable [phone] Luna Simons MD Unavailable Caroline Duque RN Unavailable [phone] Martha White MD Unavailable [phone] Pedrito Ramirez MD Unavailable [phone] Rodney Natarajan MD Unavailable [phone] Ankita Park MD Unavailable [phone] Ankita Park MD Unavailable [phone] Mio Mclean MD Unavailable [phone] Luna Simons MD Unavailable Jose Zaragoza NP Unavailable [phone] Mio Mclean MD Unavailable [phone] Luna Simons MD Unavailable Nadja Hagen MD Unavailable [phone] Batool Atkinson PhD LP Unavailable Prisca Miller MD Unavailable [phone] Ivette, Jennyfer E ASSISTED LIVING NURSING DIRECTOR RETAIL PERFORMANCE COACH Unavailable + Jennyfer Steele ASSISTED LIVING NURSING DIRECTOR RETAIL PERFORMANCE COACH Unavailable + Sadaf Apple NP Unavailable Unavailable Clinic - [facility] Unavailabl e Yamel Saha PA-C Unavailable [phone] Luna Simons MD Unavailable [phone] Encounter Details Date Type Department Care Team (Late Contact Info) Description 06/18/2020 My[facility] Medical Advice [facility] [address] [place] [phone] Talita Bradshaw Social History Tobacco Use [...] COVID-19? No / Unsure 06/03/2020 9:30 AM SENIOR SPECIALIST documented as of this encounter Plan of Treatment Upcoming Encounters Date Type Department Care Team (Late Contact Info) Description 09/15/2025 9:15 AM CDT Ancillary Procedure [facility] Imaging [address] 2nd [place] [address] Luna Simons MD [address] [place] [address] 480 [place] [address] 09/15/2025 10:00 AM CDT Oncology Visit [facility] [address] [place] [phone] Luna Simons MD [address] [place] [address] 480 [place] [address] documented as of this encounter Visit Diagnoses Not on filedocumented in this encounter Additional Health Concerns Infection Onset Date Last Indicated Resolved Time Rule Out COVID-19 01/24/2023 01/24/2023 01/24/2023 10:32 PM CDT documented as of this encounter Care Teams Swatch Folder Relationship Specialty Start Date End Date Cyndie Eisenberg NP [address] [place] [address] PCP - General 09/25/19 Rodney Natarajan MD 420 [facility] 195 [place] [address] General Surgery 09/25/19 Luna Simons MD [address] [place] [address] 480 [place] [address] Hematology 09/25/19 Caroline Duque, RN Specialty Senior Cisco Network Engineer Breast Oncology 09/30/19 Martha White MD [address] [place] [address] senior bioinformatics specialist 11/01/19 Pedrito Ramirez MD [address] [place] [address] Assigned Heart and Vascular Provider 03/20/20 11/07/20 Rodney Natarajan MD 420 [facility] 195 [place] [address] Assigned Surgical Provider 03/20/20 08/07/21 Ankita Park MD 2450 [facility] [place] [phone] Assigned Behavioral Health Provider 05/03/20 06/29/23 Ankita Park MD [address] [phone] senior bioinformatics specialist 06/10/20 Mio Mclean MD [address] [place] [facility] 494 [place], [place] 5[address] Assigned Cancer Care Provider 05/10/20 07/25/20 Luna Simons MD 420 [facility] 480 [place], [place] [address] Assigned Cancer Care Provider 07/26/20 06/26/21 Jose Zaragoza NP 6405 [place], [place] 435405 Assigned Heart and Vascular Provider 11/08/20 02/04/22 Mio Mclean MD [address] [place] [address] 7[address]605 Assigned Cancer Care Provider 06/27/21 09/11/21 Luna Simons MD [address] [place] [facility] [address] [place], [place] 55[address] Assigned Cancer Care Provider 09/12/21 01/18/24 Nadja Hagen MD [address] 2, [address] [place], [place] 9[address] Resident Psychiatry 04/01/22 05/13/24 Batool Atkinson, PhD LP 2450 [facility] [address] [place], [place] 74[address] Psychologist Licensed Mental Health 04/01/22 Prisca Miller MD 6 [facility] 295 [place], [place] 539945 Resident Neurology 02/10/23 Jennyfer Steele APRN RETAIL PERFORMANCE COACH [address] [place] [address] [address] [place] [address] Nurse Practitioner Psychiatry 02/23/23 Jennyfer Steele APRN RETAIL PERFORMANCE COACH [address] [place] [address] Assigned Behavioral Health Provider 06/30/23 Sadaf Apple NP Assigned PCP 07/21/23 09/18/23 [facility] [id number] [place] [address] Assigned PCP 09/19/23 Yamel Saha PA-C [address] [place] [address] 480 [place], [place] 500195 Assigned Cancer Care Provider 01/19/24 04/19/24 Luna Simons MD [address] [address] Assigned Cancer Care Provider 04/20/24 documented as of this encounter
--- OUTSIDE RECORDS SUMMARY | 2024-10-15 17:07 | XMS_ITS | Encounter Summary ---
Author Organization [place] Address [address] [place] [address] Care Team Providers Care Cellar Pumper Name Role Phone Cyndie Eisenberg NP Primary Care Provider + Rodney Natarajan MD Unavailable [phone] Luna Simons MD Unavailable [phone] Caroline Duque RN Unavailable [phone] Martha White MD Unavailable [phone] Ankita Park MD Unavailable [phone] Ankita Park MD Unavailable [phone] Luna Simons MD Unavailable [phone] Nadja Hagen MD Unavailable [phone] Batool Atkinson PhD LP Unavailable [phone] Prisca Miller MD Unavailable [phone] Jennyfer Steele APRN HOUSEKEEPER/LAUNDRY ASSISTANT Unavailable +[phone] Jennyfer Steele APRN HOUSEKEEPER/LAUNDRY ASSISTANT Unavailable + [phone] Sadaf Apple NP Unavailable Unavailable [facility] Unavailabl e Yamel Saha PA-C Unavailable [phone] Luna Simons MD Unavailable [phone] Encounter Details Date Type Department Care Team (Late st Contact Info) Description 05/18/2022 MyC Medical Advice [facility] Cancer [address] [phone] Justyna Concepcion, RN Social History Tobacco Use Types Packs/Day [...] Description 09/15/2025 9:15 AM CDT Ancillary Procedure [facility] Imaging [address] 2nd [place] [phone] Luna Simons MD [address] [place] [address] 09/15/2025 10:00 AM CDT Oncology Visit [facility] Cancer [address] [phone] Luna Simons MD [address] [place] [address] 658005 documented as of this encounter Visit Diagnoses Not on filedocumented in this encounter Additional Health Concerns Infection Onset Date Last Indicated Resolved Time Rule Out COVID-19 01/24/2023 01/24/2023 01/24/2023 10:32 PM CDT Assessment Noted Time PHQ-9 Depression Total Score: 22 022 3:25 PM GREENHOUSE MANAGER documented as of this encounter Care Teams Cellar Pumper Relationship Specialty Start Date End Date Cyndie Eisenberg NP [address] [place] [address] PCP - General 09/25/19 Rodney Natarajan MD 420 [facility] 195 [place], [place] 0934[address] General Surgery 09/25/19 Luna Simons MD 420 [facility] 480 [place], [place] 6[address] MD Hematology 09/25/19 Caroline Duque, RN Specialty Alternative Medicine Practitioner Breast Oncology 09/30/19 Martha White MD 2312 [address] [facility] [address] [place], [place] 7[address] nurse quality 11/01/19 Ankita Park MD [address] [place] [phone] Assigned Behavioral Health Provider 05/03/20 06/29/23 Ankita Park MD [address] [place] [phone] nurse quality 06/10/20 Luna Simons MD 420 [facility] 480 [place], [place] 159795 Assigned Cancer Care Provider 09/12/21 01/18/24 Nadja Hagen MD [address] [facility] Floor 2, [address] [place], [place] [address] Resident Psychiatry 04/01/22 05/13/24 Batool Atkinson, PhD LP [address] [place] [address] [address] [place] [address] Psychologist Licensed Mental Health 04/01/22 Prisca Miller MD 516 [facility] 295 [place] [address] Resident Neurology 02/10/23 Jennyfer Steele APRN HOUSEKEEPER/LAUNDRY ASSISTANT [address] [place], [place] 17[address] [place] [address] Nurse Practitioner Psychiatry 02/23/23 Jennyfer Steele APRN HOUSEKEEPER/LAUNDRY ASSISTANT [address] [place], [place] 17[address] [place] [address] Assigned Behavioral Health Provider 06/30/23 Sadaf Apple NP Assigned PCP 07/21/23 09/18/23 [facility] [address] [place] [address] Assigned PCP 09/19/23 Yamel Saha PA-C 420 [facility] 480 [place], [place] [address]325 Assigned Cancer Care Provider 01/19/24 04/19/24 Luna Simons MD 420 [facility] 480 [place], [place] 331295 Assigned Cancer Care Provider 04/20/24 documented as of this encounter
--- OUTSIDE RECORDS SUMMARY | 2024-10-15 17:07 | XMS_ITS | Encounter Summary ---
Author Organization [place] Address [address] [place] [address] Care Team Providers Care Labourers Name Role Phone Cyndie Eisenberg NP Primary Care Provider + Rodney Natarajan MD Unavailable [phone] Luna Simons MD Unavailable [phone] Caroline Duque RN Unavailable [phone] Martha White MD Unavailable [phone] Ankita Park MD Unavailable [phone] Ankita Park MD Unavailable [phone] Luna Simons MD Unavailable [phone] Nadja Hagen MD Unavailable [phone] Batool Atkinson PhD LP Unavailable [phone] Prisca Miller MD Unavailable [phone] Jennyfer Steele APRN GAMING HOST Unavailable +[phone] Jennyfer Steele APRN GAMING HOST Unavailable + [phone] Sadaf Apple NP Unavailable Unavailable [facility] Unavailabl e Yamel Saha PA-C Unavailable [phone] Luna Simons MD Unavailable [phone] Encounter Details Date Type Department Care Team (Late st Contact Info) Description 10/19/2022 MyC Medical Advice [facility] [place] [id number] [address] [phone] Talita Bradshaw Social History Tobacco Use Types [...] Description 09/15/2025 9:15 AM CDT Ancillary Procedure [facility] Imaging [address] 2nd [place] [address] Luna Simons MD [address] [place] [address] 107015 09/15/2025 10:00 AM CDT Oncology Visit [facility] [address] [place] [phone] Luna Simons MD [address] [place] [address] 563915 documented as of this encounter Visit Diagnoses Not on filedocumented in this encounter Additional Health Concerns Infection Onset Date Last Indicated Resolved Time Rule Out COVID-19 01/24/2023 01/24/2023 01/24/2023 10:32 PM CDT Assessment Noted Time PHQ-9 Depression Total Score: 22 022 3:25 PM GROUP HOME COUNSELOR documented as of this encounter Care Teams Labourers Relationship Specialty Start Date End Date Cyndie Eisenberg NP [address] [address] PCP - General 09/25/19 Rodney Natarajan MD 420 [facility] 195 [place], [place] [address] MD General Surgery 09/25/19 Luna Simons MD 420 [facility] 480 [place], [place] 308455 MD Hematology 09/25/19 Caroline Duque, ASHLIE Specialty Animal Attendant Breast Oncology 09/30/19 Martha White MD 2312 [address] [facility] [address] [place], [place] [address] produce shipper 11/01/19 Ankita Park MD [address] [place] [phone] Assigned Behavioral Health Provider 05/03/20 06/29/23 Ankita Park MD [address] [place] [phone] produce shipper 06/10/20 Luna Simons MD [address] [place] [address] 480 [place] [address] Assigned Cancer Care Provider 09/12/21 01/18/24 Nadja Hagen MD 2312 S [facility] Floor 2, [address] [place], [place] [address] Resident Psychiatry 04/01/22 05/13/24 [place] [address] [place] [address] [address] [place] [address] Psychologist Licensed Mental Health 04/01/22 Prisca Miller MD 516 [facility] 295 [place] [address] Resident Neurology 02/10/23 Jennyfer Steele APRN GAMING HOST [address] [place] [address] [address] [place] [address] Nurse Practitioner Psychiatry 02/23/23 Jennyfer Steele APRN GAMING HOST [address] [place] [address] [address] [place] [address] Assigned Behavioral Health Provider 06/30/23 Sadaf Apple NP Assigned PCP 07/21/23 09/18/23 [facility] [phone] [place] [address] Assigned PCP 09/19/23 Yamel Saha PA-C 420 [facility] 480 [place] [address] Assigned Cancer Care Provider 01/19/24 04/19/24 Luna Simons MD 420 [facility] 480 [place], [place] [address] Assigned Cancer Care Provider 04/20/24 documented as of this encounter
--- OUTSIDE RECORDS SUMMARY | 2024-10-15 17:07 | XMS_ITS | Encounter Summary ---
Author Organization [facility] Address [address] [place] [address] Care Team Providers Care Global Regulatory Affairs Manager Name Role Phone Cyndie Eisenberg NP Primary Care Provider + Rodney Natarajan MD Unavailable [phone] Luna Simons MD Unavailable +[phone] Caroline Duque RN Unavailable [phone] Martha White MD Unavailable +- [phone] Ankita Park MD Unavailable +[phone] Ankita Park MD Unavailable [phone] Luna Simons MD Unavailable +[phone] Nadja Hagen MD Unavailable +[phone] Batool Atkinson PhD LP Unavailable +[phone] Prisca Miller MD Unavailable +[phone] Jennyfer Steele APRN FISHER DIVER NET Unavailable +[phone] Jennyfer Steele APRN FISHER DIVER NET Unavailable + 3 Sadaf Apple NP Unavailable Unavailable [facility] Unavailabl e Yamel Saha PA-C Unavailable +[phone] Luna Simons MD Unavailable +[phone] Encounter Details Date Type Department Care Team (Late st Contact Info) Description 11/02/2022 MyC Medical Advice [facility] Mental Health & Addiction [place] [id number] [phone] Lorelei Ramirez LSW Social History Tobacco Use Types Packs/Day Years [...] Description 09/15/2025 9:15 AM CDT Ancillary Procedure [facility] Breast Center Imaging [address] 2nd [place] [phone] Luna Simons MD [address] [place] [address] 317285 09/15/2025 10:00 AM CDT Oncology Visit [facility] [address] [place] [address] [phone] Luna Simons MD [address] [place] [address] 395555 documented as of this encounter Visit Diagnoses Not on filedocumented in this encounter Additional Health Concerns Infection Onset Date Last Indicated Resolved Time Rule Out COVID-19 01/24/2023 01/24/2023 01/24/2023 10:32 PM CDT Assessment Noted Time PHQ-9 Depression Total Score: 22 022 3:25 PM CRYSTAL CUTTER documented as of this encounter Care Teams Global Regulatory Affairs Manager Relationship Specialty Start Date End Date Cyndie Eisenberg NP 100 [facility] [place] [address] PCP - General 09/25/19 Rodney Natarajan MD 420 [facility] 195 [place], [place] 113885 General Surgery 09/25/19 Luna Simons MD 420 [facility] 480 [place], [place] 877525 MD Hematology 09/25/19 Caroline Duque, RN Specialty Regional Rehabilitation Director Breast Oncology 09/30/19 Martha White MD 2312 [address] [facility] [address] [place], [place] 515064 assembly cleaner 11/01/19 Ankita Park MD [address] [place] [phone] Assigned Behavioral Health Provider 05/03/20 06/29/23 Ankita Park MD [address] [place] [phone] assembly cleaner 06/10/20 Luna Simons MD [address] [place] [address] 480 [place] [address] Assigned Cancer Care Provider 09/12/21 01/18/24 Nadja Hagen MD [address] 2, [address] [place], [place] 769814 Resident Psychiatry 04/01/22 05/13/24 Batool Atkinson, PhD LP 2450 [facility] [address] [place] [address] Psychologist Licensed Mental Health 04/01/22 Prisca Miller MD 516 [facility] 295 [place] [address] Resident Neurology 02/10/23 Jennyfer Steele APRN FISHER DIVER NET [facility] [address] [place] [address] Nurse Practitioner Psychiatry 02/23/23 Jennyfer Steele APRN FISHER DIVER NET [facility] [address] [place] [address] Assigned Behavioral Health Provider 06/30/23 Sadaf Apple NP Assigned PCP 07/21/23 09/18/23 [facility] [address] [place] [address] Assigned PCP 09/19/23 Yamel Saha PA-C 420 [facility] 480 [place] [address] Assigned Cancer Care Provider 01/19/24 04/19/24 Luna Simons MD 420 [facility] 480 [place], [place] 971785 Assigned Cancer Care Provider 04/20/24 documented as of this encounter
--- OUTSIDE RECORDS SUMMARY | 2024-10-15 17:07 | XMS_ITS | Encounter Summary ---
Author Organization [facility] Address [address] [place] [address] Care Team Providers Care Sweeper Operator Highways Name Role Phone Cyndie Eisenberg NP Primary Care Provider + Rodney Natarajan MD Unavailable [phone] Luna Simons MD Unavailable +[phone] Caroline Duque RN Unavailable Martha White MD Unavailable +- [phone] Ankita Park MD Unavailable [phone] Ankita Park MD Unavailable [phone] Luna Simons MD Unavailable +[phone] Nadja Hagen MD Unavailable +[phone] Batool Atkinson PhD LP Unavailable [phone] Prisca Miller MD Unavailable +[phone] Jennyfer Steele APRN HOTEL CUSTODIAN Unavailable +[phone] Jennyfer Steele APRN HOTEL CUSTODIAN Unavailable + 3 Sadaf Apple NP Unavailable Unavailable [facility] Unavailabl e Yamel Saha PA-C Unavailable +[phone] Luna Simons MD Unavailable +[phone] Encounter Details Date Type Department Care Team (Late st Contact Info) Description 10/12/2022 [facility] Medical Advice [facility] Mental Health & Addiction [place] [id number] [address] [phone] Talita Bradshaw Encounter for smoking cessation counseling Social History Tobacco Use Types Packs/Day Years [...] Miscellaneous Notes * Telephone Encounter - Nikkie Merlos RN - 10/26/2022 3:21 PM CDT Images from the original note were not included. Ankita Park MD Moccio, Emily, ASHLIE; P Psychiatry Nurse-[facility] I am feeling cautious about an increase in Adderall before the next visit. There are two potential interactions: additive serotonin (Cymbalta, Adderall, trazodone) and 2D6 inhibition from Cymbalta. The max I would go on Adderall, with this combo, is 40mg and maybe only to 30mg- it depends. I would really need to know why she thinks she needs a higher dose and need to makesure she understands the risks. I feel all of that would be best discussed in a visit. My preference is to wait. D * Telephone Encounter - Catia Camacho RN - 10/12/2022 1:44 PM CDT Last seen: 08/23/22 RTC: Kirsten or November Cancel: none No-show: none Next appt: 12/07/22 Medication requested: ADDERALL XR 10 MG 24 hr capsule Directions: Take one cap in the morning (10mg) and one cap in the afternoon (10mg) Qty: 60 Last refilled: 09/16, 08/18, 06/22 Medication requested: traZODone (DESYREL) 50 MG tablet Directions: Take two tabs (100mg) by mouth every night and may take an extra half tab (25mg) per night prn insomnia Qty: 190 Last refilled: 07/16/22 *Last rx written 10/09/22 for #190 with 1 RF Medication requested: varenicline (CHANTIX) 1 MG tablet Directions: Take 1 tablet (1 mg) by mouth 2 times daily - Oral Qty: 60 Last refilled: 09/19/22 *No refills Medication requested: DULoxetine (CYMBALTA) 30 MG capsule Directions: Take 1 capsule (30 mg) by mouth daily in addition to a 60 mg cap for total daily dose of 90 mg - Oral Qty: 30 Last refilled: 09/14/22 *Last rx written 09/14 with 1 RF Medication requested: DULoxetine (CYMBALTA) 60 MG capsule Directions: Take one cap (60mg) by mouth daily with 30 mg cap for TDD of 90 mg Qty: 90 Last refilled: 08/24/22 *Last rx written 08/24/22 for 4 total fills documented in this encounter Plan of Treatment Upcoming Encounters Date Type Department Care Team (Late st Contact Info) Description 09/15/2025 9:15 AM CDT Ancillary Procedure [facility] Breast Center Imaging [address] 2nd [place] [address] Luna Simons MD [address] [place] [address] [phone] 09/15/2025 10:00 AM CDT Oncology Visit [facility] [address] [place] [address] [phone] Luna Simons MD [address] [place] [address] [phone] documented as of this encounter Visit Diagnoses Diagnosis Encounter for smoking cessation counseling Counseling on substance use and abuse documented in this encounter Additional Health Concerns Infection Onset Date Last Indicated Resolved Time Rule Out COVID-19 01/24/2023 01/24/2023 01/24/2023 10:32 PM CDT Assessment Noted Time PHQ-9 Depression Total Score: 22 022 3:25 PM VIDEO EDITOR documented as of this encounter Care Teams Sweeper Operator Highways Relationship Specialty Start Date End Date Cyndie Eisenberg, DISTRICT AGENT [address] [place] [address] PCP - General 09/25/19 Rodney Natarajan MD 420 [facility] 195 [place], [place] 582415 MD General Surgery 09/25/19 Luna Simons MD 420 [facility] 480 [place] [address] Hematology 09/25/19 Caroline Duque, RN Specialty Customer Experience Strategist Breast Oncology 09/30/19 Martha White MD [address] [place] [address] [address] [place], [place] 839144 rfid strategist 11/01/19 Ankita Park MD [facility] [address] [address] Assigned Behavioral Health Provider 05/03/20 06/29/23 Ankita Park MD [facility] [address] [phone] rfid strategist 06/10/20 Luna Simons MD 420 [facility] 480 [place], [place] 776455 Assigned Cancer Care Provider 09/12/21 01/18/24 Nadja Hagen MD [facility] [address] 2, [address] [place], [place] 438[address] Resident Psychiatry 04/01/22 05/13/24 Batool Atkinson, PhD LP [address] [place] [address] [address] [place] [address] Psychologist Licensed Mental Health 04/01/22 Prisca Miller MD 516 [facility] 295 [place], [place] 632805 Resident Neurology 02/10/23 Jennyfer Steele APRN HOTEL CUSTODIAN [address] [facility] [address] [place] [address] [place], [place] 973634 Nurse Practitioner Psychiatry 02/23/23 Jennyfer Steele APRN HOTEL CUSTODIAN [facility] [address], [place] [address] [place], [place] 266704 Assigned Behavioral Health Provider 06/30/23 Sadaf Apple NP Assigned PCP 07/21/23 09/18/23 [facility] [id number] [place] [address] 1933344 Assigned PCP 09/19/23 Yamel Saha PA-C 420 [facility] 480 [place], [place] 227685 Assigned Cancer Care Provider 01/19/24 04/19/24 Luna Simons MD [address] [place] [address] Assigned Cancer Care Provider 04/20/24 documented as of this encounter
--- OUTSIDE RECORDS SUMMARY | 2024-10-15 17:07 | XMS_ITS | Encounter Summary ---
Author Organization [facility] Address [address] [place] [address] Care Team Providers Care It Help Desk Technician Name Role Phone Cyndie Eisenberg NP Primary Care Provider + Rodney Natarajan MD Unavailable [phone] Luna Simons MD Unavailable [phone] Caroline Duque RN Unavailable [phone] Martha White MD Unavailable [phone] Ankita Park MD Unavailable Ankita Park MD Unavailable [phone] Luna Simons MD Unavailable [phone] Nadja Hagen MD Unavailable [phone] Batool Atkinson PhD LP Unavailable [phone] Prisca Miller MD Unavailable [phone] Jennyfer Steele APRN EMANATIONS ANALYSIS TECHNICIAN Unavailable +[phone] Jennyfer Steele APRN EMANATIONS ANALYSIS TECHNICIAN Unavailable + 3 Sadaf Apple NP Unavailable Unavailable [facility] Unavailabl e Yamel Saha PA-C Unavailable [phone] Luna Simons MD Unavailable [phone] Encounter Details Date Type Department Care Team (Late st Contact Info) Description 11/28/2022 MyC Medical Advice [facility] Mental Health & Addiction [place] [phone] [phone] Talita Bradshaw Social History Tobacco Use Types [...] Description 09/15/2025 9:15 AM CDT Ancillary Procedure [facility] Breast Center Imaging [address] 2nd [place] [phone] Luna Simons MD [address] [place] [address] 402015 09/15/2025 10:00 AM CDT Oncology Visit [facility] [address] [place] [address] [phone] Luna Simons MD [address] [place] [address] 312955 documented as of this encounter Visit Diagnoses Not on filedocumented in this encounter Additional Health Concerns Infection Onset Date Last Indicated Resolved Time Rule Out COVID-19 01/24/2023 01/24/2023 01/24/2023 10:32 PM CDT Assessment Noted Time PHQ-9 Depression Total Score: 22 022 3:25 PM PERFORMANCE SPECIALIST documented as of this encounter Care Teams It Help Desk Technician Relationship Specialty Start Date End Date Cyndie Eisenberg NP [address] [facility] [place] [address] PCP - General 09/25/19 Rodney Natarajan MD 420 [facility] 195 [place], [place] 204995 MD General Surgery 09/25/19 Luna Simons MD 420 [facility] 480 [place], [place] 709905 MD Hematology 09/25/19 Caroline Duque, ASHLIE Specialty Para Professional Breast Oncology 09/30/19 Martha White MD 2312 [address] [facility] [address] [place], [place] 516154 marine fire fighter 11/01/19 Ankita Park MD [address] [place] [address] [phone] Assigned Behavioral Health Provider 05/03/20 06/29/23 Ankita Park MD [address] [place] [address] [phone] marine fire fighter 06/10/20 Luna Simons MD [address] [place] [address] 480 [place] [address] Assigned Cancer Care Provider 09/12/21 01/18/24 Nadja Hagen MD 2312 S [facility] Floor 2, [address] [place], [place] 299814 Resident Psychiatry 04/01/22 05/13/24 [place] [address] [place] [address] [address] [place] [address] Psychologist Licensed Mental Health 04/01/22 Prisca Miller MD 516 [facility] 295 [place] [address] Resident Neurology 02/10/23 Jennyfer Steele APRN EMANATIONS ANALYSIS TECHNICIAN [address] [place] [address] [address] [place] [address] Nurse Practitioner Psychiatry 02/23/23 Jennyfer Steele APRN EMANATIONS ANALYSIS TECHNICIAN [address] [place] [address] [address] [place] [address] Assigned Behavioral Health Provider 06/30/23 Sadaf Apple NP Assigned PCP 07/21/23 09/18/23 [facility] [address] [place] [address] Assigned PCP 09/19/23 Yamel Saha PA-C 420 [facility] 480 [place] [address] Assigned Cancer Care Provider 01/19/24 04/19/24 Luna Simons MD 420 [facility] 480 [place], [place] 685435 Assigned Cancer Care Provider 04/20/24 documented as of this encounter
--- OUTSIDE RECORDS SUMMARY | 2024-10-15 17:07 | XMS_ITS | Encounter Summary ---
Author Organization [facility] Address [address] [place] [address] Care Team Providers Care Assistant Hairstylist Name Role Phone Cyndie Eisenberg NP Primary Care Provider + Rodney Natarajan MD Unavailable [phone] Luna Simons MD Unavailable [phone] Caroline Duque RN Unavailable [phone] Martha White MD Unavailable [phone] Ankita Park MD Unavailable [phone] Ankita Park MD Unavailable [phone] Luna Simons MD Unavailable +[phone] Nadja Hagen MD Unavailable [phone] Batool Atkinson PhD LP Unavailable [phone] Prisca Miller MD Unavailable [phone] Jennyfer Steele APRN LANGUAGE TRANSLATOR Unavailable +[phone] Jennyfer Steele APRN LANGUAGE TRANSLATOR Unavailable + 3 Sadaf Apple NP Unavailable Unavailable [facility] Unavailabl e Yamel Saha PA-C Unavailable +[phone] Luna Simons MD Unavailable [phone] Encounter Details Date Type Department Care Team (Late st Contact Info) Description 12/13/2022 MyC Medical Advice [facility] Cancer [address] [phone] Talita Bradshaw Social History Tobacco Use Types [...] Description 09/15/2025 9:15 AM CDT Ancillary Procedure [facility] Breast Center Imaging [address] 2nd [place] [phone] Luna Simons MD [address] [place] [address] 09/15/2025 10:00 AM CDT Oncology Visit [facility] Cancer [address] [phone] Luna Simons MD [address] [place] [address] 634445 documented as of this encounter Visit Diagnoses Not on filedocumented in this encounter Additional Health Concerns Infection Onset Date Last Indicated Resolved Time Rule Out COVID-19 01/24/2023 01/24/2023 01/24/2023 10:32 PM CDT Assessment Noted Time PHQ-9 Depression Total Score: 22 022 3:25 PM DRAPERY AND UPHOLSTERY ESTIMATOR documented as of this encounter Care Teams Assistant Hairstylist Relationship Specialty Start Date End Date Cyndie Eisenberg NP [address] [place] [address] PCP - General 09/25/19 Rodney Natarajan MD 420 [facility] 195 [place], [place] 252415 MD General Surgery 09/25/19 Luna Simons MD 420 [place] [facility] 480 [place], [place] 936945 MD Hematology 09/25/19 Caroline Duque, ASHLIE Specialty Hand Tube Bender Breast Oncology 09/30/19 Martha White MD [address] [facility] [place] [address] [place], [place] 342714 lift electrician 11/01/19 Ankita Park MD [facility] [address] [phone] Assigned Behavioral Health Provider 05/03/20 06/29/23 Ankita Park MD [facility] [address] [phone] lift electrician 06/10/20 Luna Simons MD 420 [place] [facility] 480 [place] [address] Assigned Cancer Care Provider 09/12/21 01/18/24 Nadja Hagen MD [address] Floor 2, [address] [place], [place] 09[address]64 Resident Psychiatry 04/01/22 05/13/24 Batool Atkinson, PhD LP 2450 [facility] [address] [place], [place] 122184 Psychologist Licensed Mental Health 04/01/22 Prisca Miller MD 516 [facility] 295 [place] [address] Resident Neurology 02/10/23 Jennyfer Steele APRN LANGUAGE TRANSLATOR [address] [place], [place] 1592775 [place] [address] Nurse Practitioner Psychiatry 02/23/23 Jennyfer Steele APRN LANGUAGE TRANSLATOR [address] [place], [place] 1592775 [place] [address] Assigned Behavioral Health Provider 06/30/23 Sadaf Apple NP Assigned PCP 07/21/23 09/18/23 [facility] [address] [place] [address] Assigned PCP 09/19/23 Yamel Saha PA-C 420 [facility] 480 [place], [place] 854015 Assigned Cancer Care Provider 01/19/24 04/19/24 Luna Simons MD 420 [facility] 480 [place], [place] 239455 Assigned Cancer Care Provider 04/20/24 documented as of this encounter
--- OUTSIDE RECORDS SUMMARY | 2024-10-15 17:07 | XMS_ITS | Encounter Summary ---
Author Organization [facility] Address [address] [place] [address] 49086 Care Team Providers Care Animal Ecologist Name Role Phone Cyndie Eisenberg NP Primary Care Provider + Rodney Natarajan MD Unavailable [phone] Luna Simons MD Unavailable +[phone] Caroline Duque RN Unavailable [phone] Martha White MD Unavailable +[phone] Ankita Park MD Unavailable [phone] Ankita Park MD Unavailable [phone] Luna Simons MD Unavailable +[phone] Nadja Hagen MD Unavailable +[phone] Batool Atkinson PhD LP Unavailable +[phone] Prisca Miller MD Unavailable +[phone] Jennyfer Steele APRN COMMUNITY ADVOCATE Unavailable +[phone] Jennyfer Steele APRN COMMUNITY ADVOCATE Unavailable + 3 Sadaf Apple NP Unavailable Unavailable [facility] Unavailabl e Yamel Saha PA-C Unavailable +[phone] Luna Simons MD Unavailable [phone] Encounter Details Date Type Department Care Team (Late st Contact Info) Description 02/03/2023 MyC Medical Advice [facility] Mental Health & Addiction [address] [phone] Ankita Park MD [address] [place] [address] Social History Tobacco Use Types [...] Ancillary Procedure [facility] Breast Center Imaging [address] 2nd [place] [phone] Luna Simons MD [address] [place] [address] 179705 09/15/2025 10:00 AM CDT [facility] [address] [place] [phone] Luna Simons MD [address] [place] [address] 445825 documented as of this encounter Visit Diagnoses Not on filedocumented in this encounter Additional Health Concerns Assessment Noted Time PHQ-9 Depression Total Score: 22 022 3:25 PM SLABBER documented as of this encounter Care Teams Animal Ecologist Relationship Specialty Start Date End Date Cyndie Eisenberg NP 100 [place] [address] PCP - General 09/25/19 Rodney Natarajan MD [address] [facility] 195 [place], [place] 476865 General Surgery 09/25/19 Luna Simons MD 420 [facility] 480 [place], [place] 8[address]275 Hematology 09/25/19 Caroline Duque, RN Specialty Material Handling Warehouse Supervisor Breast Oncology 09/30/19 Martha White MD 2312 S [facility] [place] [address] [place], [place] [address] director of retail operations 11/01/19 Ankita Park MD [address] [place] [phone] Assigned Behavioral Health Provider 05/03/20 06/29/23 Ankita Park MD [address] [place] [phone] director of retail operations 06/10/20 Luna Simons MD 420 [facility] 480 [place], [place] 579815 Assigned Cancer Care Provider 09/12/21 01/18/24 Nadja Hagen MD [address] 2, [address] [place] [address] Resident Psychiatry 04/01/22 05/13/24 Batool Atkinson, PhD LP [address] [place] [address] [address] [place], [place] 190024 Psychologist Licensed Mental Health 04/01/22 Prisca Miller MD 6 [facility] 295 [place], [place] 131505 Resident Neurology 02/10/23 Jennyfer Steele APRN COMMUNITY ADVOCATE [facility] [address] [place], [place] 84[address] Nurse Practitioner Psychiatry 02/23/23 Jennyfer Steele APRN COMMUNITY ADVOCATE [address] [place] [address] [address] [place] [address] Assigned Behavioral Health Provider 06/30/23 Sadaf Apple NP Assigned PCP 07/21/23 09/18/23 [facility] [address] [place] [address] [id number] Assigned PCP 09/19/23 Yamel Saha PA-C 420 [facility] 480 [place], [place] 9[address]995 Assigned Cancer Care Provider 01/19/24 04/19/24 Luna Simons MD 420 [facility] 480 [place], [place] 914845 Assigned Cancer Care Provider 04/20/24 documented as of this encounter
--- OUTSIDE RECORDS SUMMARY | 2024-10-15 17:07 | XMS_ITS | Encounter Summary ---
Author Organization [facility] Address [address] [place] [address] Care Team Providers Care Chairman And Ceo Name Role Phone Cyndie Eisenberg NP Primary Care Provider + Rodney Natarajan MD Unavailable [phone] Luna Simons MD Unavailable Caroline Duque RN Unavailable [phone] Martha White MD Unavailable Pedrito Ramirez MD Unavailable [phone] Rodney Natarajan MD Unavailable [phone] Ankita Park MD Unavailable [phone] Ankita Park MD Unavailable [phone] Luna Simons MD Unavailable [phone] Jose Zaragoza NP Unavailable Mio Mclean MD Unavailable [phone] Luna Simons MD Unavailable [phone] Nadja Hagen MD Unavailable [phone] Batool Atkinson PhD LP Unavailable [phone] Prisca Miller MD Unavailable Jennyfer Steele APRN INFORMATION SECURITY SYSTEMS INSTRUCTOR Unavailable +- Jennyfer Steele Ravi BROWN INFORMATION SECURITY SYSTEMS INSTRUCTOR Unavailable + Sadaf Apple NP Unavailable Unavailable Clinic - [facility] Unavailabl e Yamel Saha PA-C Unavailable Luna Simons MD Unavailable [phone] Encounter Details Date Type Department Care Team (Late st Contact Info) Description 10/20/2020 MyC Medical Advice [facility] [address] [place] [address] Luna Simons MD [address] [place] [address] Social History Tobacco Use Types Packs/Day [...] have Coronavirus / COVID-19? No / Unsure 09/29/2020 9:05 AM CDT documented as of this encounter Plan of Treatment Upcoming Encounters Date Type Department Care Team (Late st Contact Info) Description 09/15/2025 9:15 AM CDT Ancillary Procedure [facility] Imaging [place] [address] [place] [address] 2nd [place] [address] Luna Simons MD [address] [place] [address] 09/15/2025 10:00 AM CDT Oncology Visit [facility] [address] [place] [address] Luna Simons MD [address] [facility] [address] [place] [address] documented as of this encounter Visit Diagnoses Not on filedocumented in this encounter Additional Health Concerns Infection Onset Date Last Indicated Resolved Time Rule Out COVID-19 01/24/2023 01/24/2023 01/24/2023 10:32 PM CDT documented as of this encounter Care Teams Chairman And Ceo Relationship Specialty Start Date End Date Cyndie Eisenberg KOSHER SEALER [address] [place] [address] PCP - General 09/25/19 Rodney Natarajan MD [address] [facility] [address] [place], [place] [id number] MD General Surgery 09/25/19 Luna Simons MD [address] [facility] [address] [place] [address] Hematology 09/25/19 Caroline Duque, RN Specialty Cardiology Teacher Breast Oncology 09/30/19 Martha White MD [address] [facility] [address] [place] [address] structural mill supervisor 11/01/19 ePdrito Ramirez MD [address] [place] [id number] Assigned Heart and Vascular Provider 03/20/20 11/07/20 Rodney Natarajan MD [address] [facility] [address] [place], [place] [address] Assigned Surgical Provider 03/20/20 08/07/21 Ankita Park MD [address] [address] Assigned Behavioral Health Provider 05/03/20 06/29/23 Ankita Park MD [facility] [address] [address] structural mill supervisor 06/10/20 Luna Simons MD 420 [facility] [address] [place] [address] Assigned Cancer Care Provider 07/26/20 06/26/21 Jose Zaragoza KOSHER SEALER [address] [place] [address] Assigned Heart and Vascular Provider 11/08/20 02/04/22 Mio Mclean MD 420 [facility] [address] [place] [address] Assigned Cancer Care Provider 06/27/21 09/11/21 Luna Simons MD [address] [id number] Assigned Cancer Care Provider 09/12/21 01/18/24 Nadja Hagen MD [address], [address] [place] [address] Resident Psychiatry 04/01/22 05/13/24 Batool Atkinson, PhD LP [address] [place], [place] [id number] [place], [place] [id number] Psychologist Licensed Mental Health 04/01/22 Prisca Miller MD 516 [facility] [address] [place], [place] [address] Resident Neurology 02/10/23 Jennyfer Steele APRN INFORMATION SECURITY SYSTEMS INSTRUCTOR [address] [place] [address] [id number] Nurse Practitioner Psychiatry 02/23/23 Jennyfer Steele APRN INFORMATION SECURITY SYSTEMS INSTRUCTOR [address] [place] [address] [id number] Assigned Behavioral Health Provider 06/30/23 Sadaf Apple NP Assigned PCP 07/21/23 09/18/23 [facility] [id number] [place] [address] Assigned PCP 09/19/23 Yamel Saha PA-C 420 [facility] [address] [place], [place] 3[address] Assigned Cancer Care Provider 01/19/24 04/19/24 Luna Simons MD 420 [facility] [address] [place], [place] 84[address] Assigned Cancer Care Provider 04/20/24 documented as of this encounter
--- OUTSIDE RECORDS SUMMARY | 2024-10-15 17:07 | XMS_ITS | Encounter Summary ---
Author Organization [facility] Address [address] [place] [address] Care Team Providers Care New Vehicle Sales Consultant Name Role Phone Cyndie Eisenberg NP Primary Care Provider + Rodney Natarajan MD Unavailable [phone] Luna Simons MD Unavailable [phone] Caroline Duque RN Unavailable [phone] Martha White MD Unavailable Pedrito Ramirez MD Unavailable [phone] Rodney Natarajan MD Unavailable [phone] Ankita Park MD Unavailable [phone] Ankita Park MD Unavailable [phone] Luna Simons MD Unavailable Jose Zaragoza NP Unavailable Mio Mclean MD Unavailable [phone] Luna Simons MD Unavailable [phone] Nadja Hagen MD Unavailable [phone] Batool Atkinson PhD LP Unavailable [phone] Prisca Miller MD Unavailable Jennyfer Steele APRN MENTAL HEALTH ASSOCIATE Unavailable +- Jennyfer Steele E REED PRESS FEEDER MENTAL HEALTH ASSOCIATE Unavailable + Sadaf Apple NP Unavailable Unavailable Clinic - [facility] Unavailabl e Yamel Saha PA-C Unavailable Luna Simons MD Unavailable Encounter Details Date Type Department Care Team (Late st Contact Info) Description 08/18/[address] [facility] [address] [place] [address] Luna Simons MD [address] [place] [address] Social History Tobacco Use Types Packs/Day [...] 9:15 AM CDT Ancillary Procedure [facility] Imaging [place] [address] [place] [address] 2nd [place] [address] Luna Simons MD [address] [place] [address] 09/15/2025 10:00 AM CDT Oncology Visit [facility] [address] [place] [address] Luna Simons MD [address] [facility] [address] [place] [address] documented as of this encounter Visit Diagnoses Not on filedocumented in this encounter Additional Health Concerns Infection Onset Date Last Indicated Resolved Time Rule Out COVID-19 01/24/2023 01/24/2023 01/24/2023 10:32 PM CDT documented as of this encounter Care Teams New Vehicle Sales Consultant Relationship Specialty Start Date End Date Cyndie Eisenberg MARKET DIRECTOR [address] [place] [address] PCP - General 09/25/19 Rodney Natarajan MD [address] [facility] [address] [place], [place] [address] MD General Surgery 09/25/19 Luna Simons MD [address] [facility] [address] [place] [address] Hematology 09/25/19 Caroline Duque, RN Specialty Packaging Design Engineer Breast Oncology 09/30/19 Martha White MD [address] [facility] [address] [place] [address] ambulatory services representative 11/01/19 Pedrito Ramirez MD [address] [place] [address] Assigned Heart and Vascular Provider 03/20/20 11/07/20 Rodney Natarajan MD [address] [facility] [address] [place], [place] [address]635 Assigned Surgical Provider 03/20/20 08/07/21 Ankita Park MD [address] [address] Assigned Behavioral Health Provider 05/03/20 06/29/23 Ankita Park MD [facility] [address] [address] ambulatory services representative 06/10/20 Luna Simons MD 420 [facility] [address] [place] [address] Assigned Cancer Care Provider 07/26/20 06/26/21 Jose Zaragoza MARKET DIRECTOR [address] [place] [address] Assigned Heart and Vascular Provider 11/08/20 02/04/22 Mio Mclean MD 420 [facility] [address] [place] [address] Assigned Cancer Care Provider 06/27/21 09/11/21 Luna Simons MD [address] [id number] Assigned Cancer Care Provider 09/12/21 01/18/24 Nadja Hagen MD [address] [place] [address] Resident Psychiatry 04/01/22 05/13/24 Baotol Atkinson, PhD LP [address] [place], [place] [id number] [place], [place] [phone] Psychologist Licensed Mental Health 04/01/22 Prisca Miller MD 516 [facility] [address] [place], [place] [address] Resident Neurology 02/10/23 Jennyfer Steele APRN MENTAL HEALTH ASSOCIATE [address] [place] [address] 369504 Nurse Practitioner Psychiatry 02/23/23 Jennyfer Steele APRN MENTAL HEALTH ASSOCIATE [address] [place] [address] [id number] Assigned Behavioral Health Provider 06/30/23 Sadaf Apple NP Assigned PCP 07/21/23 09/18/23 [facility] [address] [place] [address] Assigned PCP 09/19/23 Yamel Saha PA-C 420 [facility] [address] [place], [place] 27[address] Assigned Cancer Care Provider 01/19/24 04/19/24 Luna Simons MD 420 [facility] [address] [place], [place] [address] Assigned Cancer Care Provider 04/20/24 documented as of this encounter
--- OUTSIDE RECORDS SUMMARY | 2024-10-15 17:07 | XMS_ITS | Clinical Summary ---
Author Organization [facility] Address [address] [place] [address] Care Team Providers Care Manager Erp Name Role Phone Cyndie Eisenberg NP Primary Care Provider + Rodney Natarajan MD Unavailable [phone] Luna Simons MD Unavailable Caroline Duque RN Unavailable [phone] Martha White MD Unavailable [phone] Ankita Park MD Unavailable [phone] Batool Atkinson PhD LP Unavailable Prisca Miller MD Unavailable Jennyfer Steele APRN MOTEL FRONT DESK CLERK Unavailable [phone] Jennyfer Steele APRN MOTEL FRONT DESK CLERK Unavailable [phone] [facility] Unavailabl e Luna Simons MD Unavailable [phone] Allergies No known active allergies Medications multivitamin w/minerals (THERA-VIT-M) tablet Take 1 tablet by mouth every morning Active Probiotic Product (PROBIOTIC DAILY PO) Take 1 tablet by mouth every morning Active DULoxetine (CYMBALTA) 60 MG capsuleIndicati ons:Anxiety Take 1 capsule (60mg) by mouth daily in addition to a 30 mg cap for total daily dose of 90 mg 90 capsule 3 04/30/2024 Active DULoxetine (CYMBALTA) 30 MG capsuleIndicati ons:Recurrent major depressive disorder, in full remission Take 1 capsule (30 mg) by mouth daily. in addition to a 60 mg cap for total daily dose of 90 mg 90 capsule 3 04/30/2024 Active amphetamine-dex troamphetamine (ADDERALL XR) 10 MG 24 hr capsuleIndicati ons:Cognitive complaints Take 1 capsule (10 mg) by mouth 2 times daily. 60 capsule 09/23/2024 10/24/19 25 Active amphetamine-dex troamphetamine (ADDERALL XR) 10 MG 24 hr capsuleIndicati ons:Cognitive complaints Take 1 capsule (10 mg) by mouth 2 times daily. 60 capsule 10/21/2024 11/21/19 25 Active amphetamine-dex troamphetamine (ADDERALL XR) 10 MG 24 hr capsuleIndicati ons:Cognitive complaints Take 1 capsule (10 mg) by mouth 2 times daily. 60 capsule 11/18/2024 12/19/19 25 Active Active Problems Problem Noted Date Diagnosed Date Major depression, recurrent 04/30/2024 Pyelonephritis, acute 01/30/2023 Hypoglycemia 01/30/2023 Tachycardia 10/29/2019 H/O LEEP 09/20/2019 Overview (09/26/2019): 2009 Invasive ductal carcinoma of breast, right 09/19 Overview (01/25/2021): Added automatically from request for surgery [id number] Resolved Problems Problem Noted Date Diagnosed Date Resolved Date Episode of altered cognition 01/30/2023 06/22/2024 Anxiety 09/26/2019 06/22/2024 IUD (intrauterine device) in place 09/26/2019 12/22/2022 Encounters Date Type Department Care Team Description 09/20/2024 Orders Only [facility] [address] [place] [address] Luna Simons MD Invasive ductal carcinoma of breast, right (H) (Primary Dx) 09/17/2024 MyC Medical Advice [facility] Mental Health & Addiction [place] [id number] [phone] Talita Bradshaw 09/13/2024 MyC Medical Advice [facility] [address] [address] Radhika Dyer, ASHLIE 09/12/2024 10:30 AM CDT Oncology Visit [facility] [address] [address] Luna Simons MD Invasive ductal carcinoma of breast, right (H) (Primary Dx); Visit for screening mammogram; Fatigue, unspecified type; Menopausal syndrome (hot flashes) 09/12/2024 9:15 AM CDT Ancillary Procedure [facility] Breast Center Imaging [address] [address] Luna Simons MD Invasive ductal carcinoma of breast, right (H) 09/12/2024 MyC Medical Advice [facility] [address] [address] Radhika Dyer, ASHLIE 09/12/2024 Travel 09/10/2024 9:00 AM CDT Virtual Visit [facility] & Addiction [place] [id number] [address] [phone] Jennyfer Steele, NUMERICAL CONTROL MACHINE OPERATOR MOTEL FRONT DESK CLERK Cognitive complaints (Primary Dx); Recurrent major depressive disorder, in full remission; Anxiety from Last 3 Months Immunizations Immunization Administration Dates Next Due Flu, Unspecified 04/10/2024 TDAP (Adacel,Boostrix) 01/30/2019,05/10/2017, Family History Medical History Relation Comments Liver Cancer Maternal Grandfather Bone Cancer Maternal Grandmother Uterine Cancer Maternal Grandmother Coronary Artery Disease No family hx of Hyperlipidemia No family hx of Hypertension No family hx of Relation Status Comments Maternal Grandfather Maternal Grandmother Social History Tobacco Use Types Packs/Day Years Used Date Smoking Tobacco: Never Passive Smoke Exposure: Never Smokeless Tobacco: Never Tobacco Cessation:Counseling Given: Not Answered Alcohol Use Standard Drinks/Week Comments Yes 0 [...] week 06/22/2023 How often do you attend [facility] or shinto services? More than 4 times per year 06/22/2023 Do you belong to any clubs o r organizations such as worship groups, unions, fraternal or athletic groups, or [...] Answer Date Recorded PHQ-2 Score 0 09/10/2024 [facility] Questionnaire Answer Date [...] on file Sexual Orientation Not on file Last Filed Vital Signs Vital Sign Reading [...] 12.8 oz) 025 11:03 AM CDT Height 160 cm (5' 3) 04/01/2024 1:36 PM HEART NURSE Body Mass Index 24.06 04/01/2024 1:36 PM HEART NURSE Plan of Treatment Upcoming Encounters Date Type Department Care Team (Late st Contact Info) Description 09/15/2025 9:15 AM CDT Ancillary Procedure [facility] Breast Center Imaging [place] [address] [facility] 2nd [place] [address] Luna Simons MD 420 [facility] 480 [place], [place] 7[address]175 09/15/2025 10:00 AM CDT Oncology Visit [facility] [address] [place] [address] Luna Simons MD 420 [facility] 480 [place] [address] Health Maintenance Due Date Last Done Comments DEPRESSION ACTION PLAN 1979 HEPATITIS B IMMUNIZATION (1 of 3 - 19+ 3-dose series) 10/16/1998 COVID-19 Vaccine ( season) 2024 ANNUAL REVIEW OF HM ORDERS 06/22/2024 06/22/2023 YEARLY PREVENTIVE VISIT 06/22/2024 06/22/2023, 10/06 PHQ-9 03/12/2025 09/10/2024, 05/30, 06/21/2023, Additional history exists MAMMO SCREENING 09/12/2025 09/12/2024, 04/0 12/2023, 07/11/2022, Additional history exists HPV TEST 10/06/2025 10/06/2020, 09/26, 10/06/2020 PAP 10/06/2025 10/06/2020, 09/26, 10/06/2020, Additional history exists DIABETES SCREENING 09/03/2026 09/04/2023, 0 09/04/2023, 09/04/2023, Additional history exists LIPID 06/22/2028 06/22/2023 ADVANCE CARE PLANNING 07/02/2028 07/02/2023 DTAP/TDAP/TD IMMUNIZATION (4 - Td or Tdap) 01/30/2029 01/30/2019, 05/10/2017, 07/23/2014 ZOSTER IMMUNIZATION (1 of 2) 10/16/2029 HEPATITIS C SCREENING Completed 06/22/2023, 022 HIV SCREENING Completed 06/22/2023, 04/05/2022 INFLUENZA VACCINE Completed 04/10/2024 HPV IMMUNIZATION Aged Out No longer e ligible based on patient's age to complete this topic MENINGITIS IMMUNIZATION Aged Out No l onger eligible based on patient's age to complete this topic Pneumococcal Vaccine: Pediatrics (0 to 5 Years) and At-Risk Patients (6 to 49 Years) Aged Out No longer eligible based on patient's age to complete this topic Medical Devices Explanted Type Area Lumber Hacker Device Identifier Shelf Expiration Date Model / Serial / Lot Port-09/30/2019 Implanted:Qty: 1 on 09/30/2019 by Sarabjit Jo MD Explanted:Qty: 1 on 12/31/2020 by Osmani Bullard MD at [facility] Port Left: Chest Wall BARD 08/26/2020 [id number] / / [id number] Procedures Procedure Name Priority Date/Time Associated Diagnosis Comments MA SCREENING BILATERAL W/ ASHU Routine 09/12/2024 9:31 AM CDT Invasive ductal carcinoma of breast, right (H) GLUCOSE BY METER STAT 09/04/2023 9:07 PM CDT HIV ANTIGEN ANTIBODY COMBO Add-On 06/22/2023 4:32 PM HEART NURSE Screening for HIV (human immunodeficiency virus) HEPATITIS C SCREEN REFLEX TO HCV RNA QUANT AND GENOTYPE Add-On 06/22/2023 4:28 PM HEART NURSE Need for hepatitis C screening test LIPID REFLEX TO DIRECT LDL PANEL Add-On 06/22/2023 4:28 PM HEART NURSE Routine general medical examination at a [facility] care [facility] ABSTRACT PAP (HIM EXTERNAL RESULT) Routine 10/06/2020 10:27 AM CDT ABSTRACT HPV (HIM EXTERNAL RESULT) Routine 10/06/2020 10:27 AM CDT from Last 3 Months or Most Recently Relevant to Health Maintenance Results * MA Screen Bilateral w/Ashu (09/12/2024 [...] Simons MD IMG MAMMOGRAPHY ORDERABLES Final Result * (ABNORMAL) Glucose by meter (09/04/2023 9:07 PM CDT) GLUCOSE BY METER POCT 102(H) 70 - 99 mg/dL 09/04/2023 9:15 PM CDT LABORATORY POC Blood, Capillary BLOOD SPECIMEN / Unknown 09/04/2023 9:07 PM CDT 09/04/2023 9:15 PM CDT Provider Unknown LAB - BEAKER POCT Final Result LABORATORY [facility] Acute Care Lab [address] [facility] Lab (1st floor, no room number) [place] [address], [facility] * HIV Antigen Antibody Combo (06/22/2023 4:32 PM HEART NURSE) HIV Antigen Antibody Combo Nonreactive Nonreactive 06/23/2023 7:41 PM HEART NURSE U LABORATORY Comment:Negative HIV-1/-2 an tigen and antibody screening test results usually indicate the absence of HIV-1 and HIV-2 infection. However, such negative results do not rule-out acute HIV infection. If acute HIV-1 or HIV-2 infection is suspected, detection of HIV-1 or HIV-2 RNA is recommended. Blood BLOOD SPECIMEN / Unknown Venipuncture / Unknown 06/22/2023 4:32 PM HEART NURSE 06/22/2023 4:32 PM HEART NURSE Sadaf Apple LAB - BLOOD ORDERABLES Final Result Performing Organization Address City/[facility]/ZIP Co de Phone Number LABORATORY [facility] [address] [facility], [address] [address], [facility] [phone] * Hepatitis C Screen Reflex to HCV RNA Quant and Genotype (06/22/2023 4:28 PM HEART NURSE) Pathologist [facility] Hepatitis C Antibody Nonreactive Nonreactive 06/23/2023 7:14 PM HEART NURSE U LABORATORY Comment:A nonreactive screen ing test result does not exclude the possibility of exposure to or infection with HCV. Nonreactive screening test results in individuals with prior exposure to HCV may be due to antibody levels below the limit of detection of this assay or lack of reactivity to the HCV antigens used in this assay. Patients with recent HCV infections (<3 months from time of exposure) may have false- negative HCV antibody results due to the time needed for seroconversion (average of 8 to 9 weeks). Blood BLOOD SPECIMEN / Unknown Venipuncture / Unknown 06/22/2023 4:28 PM HEART NURSE 06/22/2023 4:30 PM HEART NURSE Sadaf Apple NP LAB - BLOOD ORDERABLES Final Result Performing Organization Address [facility]/ZIP Co de Phone Number LABORATORY [facility] [address] [facility], [address] [address], [facility] [phone] * (ABNORMAL) Lipid panel reflex to direct LDL Non-fasting (06/22/2023 4:28 PM HEART NURSE) Cholesterol 248(H) <200 mg/dL 06/23/2023 7:12 PM HEART NURSE [facility] Triglycerides 82 <150 mg/dL 06/23/2023 7:12 PM HEART NURSE [facility] Direct Measure HDL 111 >=50 mg/dL 06/23/2023 7:12 PM HEART NURSE [facility] LDL Cholesterol Calculated 121(H) <=100 mg/dL 06/23/2023 7:12 PM HEART NURSE [facility] Non HDL Cholesterol 137(H) <130 mg/dL 06/23/2023 7:12 PM HEART NURSE [facility] Blood BLOOD SPECIMEN / Unknown Venipuncture / Unknown 06/22/2023 4:28 PM HEART NURSE 06/22/2023 4:30 PM HEART NURSE Narrative [facility] - 06/23/2023 7:12 PM HEART NURSE Cholesterol Desirable: <200 mg/dL Triglycerides Normal: Less than 150 mg/dL Borderline High: 150-199 mg/dL High: 200-499 mg/dL Very High: Greater than or equal to 500 mg/dL Direct Measure HDL Female: Greater than or equal to 50 mg/dL Male: Greater than or equal to 40 mg/dL LDL Cholesterol Desirable: <100mg/dL Above Desirable: 100-129 mg/dL Borderline High: 130-159 mg/dL High: 160-189 mg/dL Very High: >= 190 mg/dL Non HDL Cholesterol Desirable: 130 mg/dL Above Desirable: 130-159 mg/dL Borderline High: 160-189 mg/dL High: 190-219 mg/dL Very High: Greater than or equal to 220 mg/dL us Sadaf Apple NP LAB - BLOOD ORDERABLES Final Result [facility] LABORATORY [facility] [address] [facility], [address] [place] [address], [facility] [phone] * Abstract HPV (HIM External Result) (10/06/2020 10:27 AM CDT) HPV Abstract See Scanned Document [facility] 10/06/2020 10:2 7 AM CDT [facility] [place] - 10/06/2020 10:27 AM CDT Sadaf Apple NP P Abstract Quality Initiatives Pap smear done on this date: (approximately), by this group: 10/06/2020, results were Nil and HPV negative. SEE CARE EVERYWHERE [facility] us Provider Outside LAB - HIM EXTERNAL RESULT Final Result [facility] [address] [place] [address], [facility] [phone] * Abstract PAP (HIM External Result) (10/06/2020 10:27 AM CDT) PAP-ABSTRACT See Scanned Document [facility] 10/06/2020 10:2 7 AM CDT [facility] [place] - 10/06/2020 10:27 AM CDT Sadaf Apple NP P Abstract Quality Initiatives Pap smear done on this date: (approximately), by this group: 10/06/2020, results were Nil and HPV negative. SEE CARE EVERYWHERE [facility] us Provider Outside LAB - HIM EXTERNAL RESULT Final Result Performing Organization Address City/[facility] Co de Phone Number [facility] [address] [place] [address], [facility] [phone] from Last 3 Months or Most Recently Relevant to Health Maintenance Insurance [facility] OUT OF STATE BCBS OUT OF STATE BCBS OUT OF STATE BCBS OUT OF STATE Advance Directives For more information, please contact: [phone] * Full Code (Latest Code Status on File) Date Activated Date Inactivated Comments 01/30/2023 6:55 PM 01/31/2023 12:36 PM All basic and advanced life-sustaining interventions are performed as appropriate Question Answer Comments Code status determined by: Discussion with patie nt/ legal decision maker * Full Code Date Activated Date Inactivated Comments 10/31/2019 2:35 PM 03/26/2020 7:38 PM Question Answer Comments Code status determined by: Discussion with patie nt/legal decision maker * Full Code Date Activated Date Inactivated Comments 10/29/2019 7:08 PM 10/31/2019 2:35 PM Question Answer Comments Code status determined by: Other (please benjy t) Care Teams Manager Erp Relationship Specialty Start Date End Date Cyndie Eisenberg NP [address] [place] [address] PCP - General 09/25/19 Rodney Natarajan MD [address] [facility] [address] [place] [address] General Surgery 09/25/19 Luna Simons MD [address] [facility] 480 [place] [address] Hematology 09/25/19 Caroline Duque, RN Specialty Paint Roller Winder Breast Oncology 09/30/19 Martha White MD [address] [place] [address] [address] [place], [place] 7[address] enrollment advisor 11/01/19 Ankita Park MD [facility] [address] [place] [phone] enrollment advisor 06/10/20 Batool Atkinson, PhD LP [address] [place] [address] [address] [place], [place] [phone] Psychologist Licensed Mental Health 04/01/22 Prisca Miller MD 6 [facility] [address] [place], [place] [address] Resident Neurology 02/10/23 Jennyfer Steele APRN MOTEL FRONT DESK CLERK [address] [place] [address] [address] [place], [place] 6[address]74 Nurse Practitioner Psychiatry 02/23/23 Jennyfer Steele APRN MOTEL FRONT DESK CLERK [address] [place] [address] [address] [place], [place] [address] Assigned Behavioral Health Provider 06/30/23 [facility] [address] [place], [place] [phone] Assigned PCP 09/19/23 Luna Simons MD [address] [place] [address] 480 [place], [place] [phone] Assigned Cancer Care Provider 04/20/24
--- OUTSIDE RECORDS SUMMARY | 2024-10-15 17:07 | XMS_ITS | Encounter Summary ---
Author Organization [facility] Address [address] [place] [address] Care Team Providers Care Head Of Sales Promotion Name Role Phone Cyndie Eisenberg NP Primary Care Provider + Rodney Natarajan MD Unavailable [phone] Luna Simons MD Unavailable [phone] Caroline Duque RN Unavailable [phone] Martha White MD Unavailable [phone] Ankita Park MD Unavailable [phone] Ankita Park MD Unavailable [phone] Luna Simons MD Unavailable [phone] Nadja Hagen MD Unavailable [phone] Batool Atkinson PhD LP Unavailable [phone] Prisca Miller MD Unavailable [phone] Jennyfer Steele APRN UTILITY WORKER PRODUCTION Unavailable [phone] Jennyfer Steele APRN UTILITY WORKER PRODUCTION Unavailable + [phone] Sadaf Apple NP Unavailable Unavailable [facility] Unavailabl e Yamel Saha PA-C Unavailable [phone] Luna Simons MD Unavailable [phone] Encounter Details Date Type Department Care Team (Late st Contact Info) Description 01/16/2023 MyC Medical Advice [facility] Mental Health & Addiction [place] [id number] [phone] Talita Bradshaw Social History Tobacco Use Types [...] Description 09/15/2025 9:15 AM CDT Ancillary Procedure [facility] Breast Center Imaging [address]nd [place] [phone] Luna Simons MD [address] [place] [address] 09/15/2025 10:00 AM CDT Oncology Visit [facility] [address] [place] [phone] Luna Simons MD [address] [place] [phone] documented as of this encounter Visit Diagnoses Not on filedocumented in this encounter Additional Health Concerns Infection Onset Date Last Indicated Resolved Time Rule Out COVID-19 01/24/2023 01/24/2023 01/24/2023 10:32 PM CDT Assessment Noted Time PHQ-9 Depression Total Score: 22 022 3:25 PM 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 documented as of this encounter Care Teams Head Of Sales Promotion Relationship Specialty Start Date End Date Cyndie Eisenberg NP [address] [place] [address] PCP - General 09/25/19 Rodney Natarajan MD 420 [facility] 195 [place], [place] 7264[address] General Surgery 09/25/19 Luna Simons MD 420 [facility] 480 [place], [place] 96[address] MD Hematology 09/25/19 Caroline Duque, ASHLIE Specialty Manager Personnel Selection Breast Oncology 09/30/19 Martha White MD [address] [facility] [address] [place], [place] [address] environmental engineering aide 11/01/19 Ankita Park MD [address] [place] [phone] Assigned Behavioral Health Provider 05/03/20 06/29/23 Ankita Park MD [address] [place] [address] environmental engineering aide 06/10/20 Luna Simons MD [address] [place] [address] 480 [place], [place] [address] Assigned Cancer Care Provider 09/12/21 01/18/24 Nadja Hagen MD [address] [facility] Floor 2, [address] [place], [place] 4[address] Resident Psychiatry 04/01/22 05/13/24 Batool Atkinson, PhD LP 2450 [facility] [address] [place] [address] Psychologist Licensed Mental Health 04/01/22 Prisca Miller MD 516 [facility] 295 [place] [address] Resident Neurology 02/10/23 Jennyfer Steele APRN UTILITY WORKER PRODUCTION [address] [place] [address] [address] [place] [address] Nurse Practitioner Psychiatry 02/23/23 Jennyfer Steele APRN UTILITY WORKER PRODUCTION [address] [place] [address] [address] [place] [address] Assigned Behavioral Health Provider 06/30/23 Sadaf Apple NP Assigned PCP 07/21/23 09/18/23 [facility] [id number] [place] [address] Assigned PCP 09/19/23 Yamel Saha PA-C 420 [facility] 480 [place], [place] 395[address] Assigned Cancer Care Provider 01/19/24 04/19/24 Luna Simons MD 420 [facility] 480 [place], [place] [address] Assigned Cancer Care Provider 04/20/24 documented as of this encounter
--- OUTSIDE RECORDS SUMMARY | 2024-10-15 17:07 | XMS_ITS | Encounter Summary ---
Author Organization [place] Address [address] [place] [address] Care Team Providers Care Furniture Finisher Name Role Phone Cyndie Eisenberg NP Primary Care Provider + Rodney Natarajan MD Unavailable [phone] Luna Simons MD Unavailable [phone] Caroline Duque RN Unavailable [phone] Martha White MD Unavailable [phone] Ankita Park MD Unavailable [phone] Ankita Park MD Unavailable uLna Simons MD Unavailable [phone] Nadja Hagen MD Unavailable [phone] Batool Atkinson PhD LP Unavailable [phone] Prisca Miller MD Unavailable [phone] Jnenyfer Steele APRN COMMERCIAL REVIEW APPRAISER Unavailable +[phone] Jennyfer Steele APRN COMMERCIAL REVIEW APPRAISER Unavailable + [phone] Sadaf Apple NP Unavailable Unavailable [facility] Unavailabl e Yamel Saha PA-C Unavailable [phone] Luna Simons MD Unavailable [phone] Encounter Details Date Type Department Care Team (Late st Contact Info) Description 05/23/2022 MyC Medical Advice [facility] Mental Health & Addiction [place] [phone] [phone] Talita Bradshaw Social History Tobacco Use Types [...] Description 09/15/2025 9:15 AM CDT Ancillary Procedure [facility] Breast Center Imaging [address] 2nd [place] [phone] Luna Simons MD [address] [place] [address] 09/15/2025 10:00 AM CDT Oncology Visit [facility] [address] [place] [phone] Luna Simons MD [address] [place] [address]605 documented as of this encounter Visit Diagnoses Not on filedocumented in this encounter Additional Health Concerns Infection Onset Date Last Indicated Resolved Time Rule Out COVID-19 01/24/2023 01/24/2023 01/24/2023 10:32 PM CDT Assessment Noted Time PHQ-9 Depression Total Score: 22 022 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 documented as of this encounter Care Teams Furniture Finisher Relationship Specialty Start Date End Date Cyndie Eisenberg NP [address] [place] [address] PCP - General 09/25/19 Rodney Natarajan MD 420 [facility] 195 [place], [place] [address] MD General Surgery 09/25/19 Luna Simons MD 420 [facility] 480 [place], [place] [address] MD Hematology 09/25/19 Caroline Duque, ASHLIE Specialty Gut Puller Breast Oncology 09/30/19 Martha White MD [address] [facility] [address] [place], [place] 8[address] learning support aide 11/01/19 Ankita Park MD [address] [place] [phone] Assigned Behavioral Health Provider 05/03/20 06/29/23 Ankita Park MD [address] [place] [phone] learning support aide 06/10/20 Luna Simons MD [address] [place] [address] 480 [place] [address] Assigned Cancer Care Provider 09/12/21 01/18/24 Nadja Hagen MD [address] [facility] Floor 2, [address] [place], [place] [address] Resident Psychiatry 04/01/22 05/13/24 [place] [address] [place] [address] [address] [place] [address] Psychologist Licensed Mental Health 04/01/22 Prisca Miller MD 516 [facility] 295 [place] [address] Resident Neurology 02/10/23 Jennyfer Steele APRN COMMERCIAL REVIEW APPRAISER [address] [place] [address] [address] [place] [address] Nurse Practitioner Psychiatry 02/23/23 Jennyfer Steele APRN COMMERCIAL REVIEW APPRAISER [address] [place] [address] [address] [place] [address] Assigned Behavioral Health Provider 06/30/23 Sadaf Apple NP Assigned PCP 07/21/23 09/18/23 [facility] [id number] [place] [address] Assigned PCP 09/19/23 Yamel Saha PA-C 420 [facility] 480 [place] [address] Assigned Cancer Care Provider 01/19/24 04/19/24 Luna Simons MD 420 [facility] 480 [place], [place] [address] Assigned Cancer Care Provider 04/20/24 documented as of this encounter
--- OUTSIDE RECORDS SUMMARY | 2024-10-15 17:07 | XMS_ITS | Encounter Summary ---
Author Organization [place] Address [address] [place] [address] Care Team Providers Care Meat Seafood Associate Name Role Phone Cyndie Eisenberg NP Primary Care Provider + Rodney Natarajan MD Unavailable [phone] Luna Simons MD Unavailable Carolnie Duque RN Unavailable [phone] Martha White MD Unavailable Pedrito Ramirez MD Unavailable [phone] Rodney Natarajan MD Unavailable [phone] Ankita Park MD Unavailable [phone] Ankita Park MD Unavailable [phone] Luna Simons MD Unavailable Jose Zaragoza NP Unavailable Mio Mclean MD Unavailable [phone] Luna Simons MD Unavailable Nadja Hagen MD Unavailable [phone] Batool Atkinson PhD LP Unavailable [phone] Prisca Miller MD Unavailable [phone] Jennyfer Steele APRN MEDICAL COLLECTOR Unavailable +- Jennyfer Steele SCHOOL PHOTOGRAPHER MEDICAL COLLECTOR Unavailable + Sadaf Apple NP Unavailable Unavailable Clinic - [facility] Unavailabl e Yamel Saha PA-C Unavailable Luna Simons MD Unavailable [phone] Encounter Details Date Type Department Care Team (Late Contact Info) Description 10/21/[address] [facility] Cancer [address] [address] Talita Bradshaw Social History Tobacco [...] 09/15/2025 9:15 AM CDT Ancillary Procedure [facility] Imaging [address] 2nd [place] [address] Luna Simons MD [address] [place] [address] 09/15/2025 10:00 AM CDT Oncology Visit [facility] Cancer [address] [address] Luna Simons MD [address] [place] [address] documented as of this encounter Visit Diagnoses Not on filedocumented in this encounter Additional Health Concerns Infection Onset Date Last Indicated Resolved Time Rule Out COVID-19 01/24/2023 01/24/2023 01/24/2023 10:32 PM CDT documented as of this encounter Care Teams Meat Seafood Associate Relationship Specialty Start Date End Date Cyndie Eisenberg NP [address] [place] [address] PCP - General 09/25/19 Rodney Natarajan MD [address] [facility] 195 [place], [place] 256685 General Surgery 09/25/19 Luna Simons MD [address] [facility] 480 [place], [place] 45[address]65 Hematology 09/25/19 Caroline Duque, RN Specialty Rn Ent Breast Oncology 09/30/19 Martha White MD [address] [place] [address] [address] [place], [place] [address] starchmaker 11/01/19 Pedrito Ramirez MD 6405 [facility] [address] [place] [address] Assigned Heart and Vascular Provider 03/20/20 11/07/20 Rodney Natarajan MD [address] [facility] 195 [place], [place] 632795 Assigned Surgical Provider 03/20/20 08/07/21 Ankita Park MD [facility], [place] [phone] Assigned Behavioral Health Provider 05/03/20 06/29/23 Ankita Park MD 2450 [facility] [address] [address] starchmaker 06/10/20 Luna Simons MD 420 [facility] 480 [place], [place] 543145 Assigned Cancer Care Provider 07/26/20 06/26/21 Jose Zaragoza NP 6405 [facility] [place] [address] Assigned Heart and Vascular Provider 11/08/20 02/04/22 Mio Mclean MD 420 [facility] 494 [place], [place] [address] Assigned Cancer Care Provider 06/27/21 09/11/21 Luna Simons MD 420 [facility] 480 [place] [address] Assigned Cancer Care Provider 09/12/21 01/18/24 Nadja Hagen MD [address] 2, [address] [place], [place] [address] Resident Psychiatry 04/01/22 05/13/24 Batool Atkinson, PhD LP [address] [place] [address] [address] [place], [place] 641924 Psychologist Licensed Mental Health 04/01/22 Prisca Miller MD 516 [facility] 295 [place] [address] Resident Neurology 02/10/23 Jennyfer Steele APRN MEDICAL COLLECTOR [address] [place] [address] [address] [place] [address] Nurse Practitioner Psychiatry 02/23/23 Jennyfer Steele APRN MEDICAL COLLECTOR [address] [place] [address] [address] [place] [address] Assigned Behavioral Health Provider 06/30/23 Sadaf Apple NP Assigned PCP 07/21/23 09/18/23 [facility] [address] [place] [address] Assigned PCP 09/19/23 Yamel Saha PA-C 420 [facility] 480 [place], [place] 928665 Assigned Cancer Care Provider 01/19/24 04/19/24 Luna Simons MD 420 [facility] 480 [place], [place] 152595 Assigned Cancer Care Provider 04/20/24 documented as of this encounter
--- OUTSIDE RECORDS SUMMARY | 2024-10-15 17:07 | XMS_ITS | Encounter Summary ---
Author Organization [place] Address [address] [place] [address] Care Team Providers Care Subassembly Assembler Name Role Phone Cyndie Eisenberg NP Primary Care Provider + Rodney Natarajan MD Unavailable [phone] Luna Simons MD Unavailable Caroline Duque RN Unavailable [phone] Martha White MD Unavailable [phone] Pedrito Ramirez MD Unavailable [phone] Rodney Natarajan MD Unavailable [phone] Ankita Park MD Unavailable [phone] Ankita Park MD Unavailable [phone] Luna Simons MD Unavailable Jose Zaragoza NP Unavailable Mio Mclean MD Unavailable [phone] Luna Simons MD Unavailable Nadja Hagen MD Unavailable [phone] Batool Atkinson PhD LP Unavailable [phone] Prisca Miller MD Unavailable Jennyfer Steele APRN BENDING MACHINE OPERATOR Unavailable +- Jennyfer Steele Ravi BROWN BENDING MACHINE OPERATOR Unavailable + Sadaf Apple NP Unavailable Unavailable Clinic - [facility] Unavailabl e Yamel Saha PA-C Unavailable [phone] Luna Simons MD Unavailable [phone] Encounter Details Date Type Department Care Team (Late st Contact Info) Description 10/24/2020 MyC Medical Advice [facility] [address] [place] [address] Luna Simons MD [address] [place] [address] Social History Tobacco Use Types Packs/Day [...] Description 09/15/2025 9:15 AM CDT Ancillary Procedure [facility] Imaging [place] [address] [place] [address] 2nd [place] [address] Luna Simons MD [address] [place] [address] 09/15/2025 10:00 AM CDT Oncology Visit [facility] [address] [place] [address] Luna Simons MD [address] [facility] 480 [place] [address] documented as of this encounter Visit Diagnoses Not on filedocumented in this encounter Additional Health Concerns Infection Onset Date Last Indicated Resolved Time Rule Out COVID-19 01/24/2023 01/24/2023 01/24/2023 10:32 PM CDT documented as of this encounter Care Teams Subassembly Assembler Relationship Specialty Start Date End Date Cyndie Eisenberg DIRECTOR OF SUSTAINABILITY [address] [place] [address] PCP - General 09/25/19 Rodney Natarajan MD [address] [facility] 195 [place], [place] 983195 MD General Surgery 09/25/19 Luna Simons MD [address] [facility] 480 [place] [address] Hematology 09/25/19 Caroline Duque, RN Specialty Pizzamaker Breast Oncology 09/30/19 Martha White MD [address] [facility] [address] [address] [place] [address] machine ii engraver 11/01/19 Pedrito Ramirez MD [address] [place] [address] [place] [address] Assigned Heart and Vascular Provider 03/20/20 11/07/20 Rodney Natarajan MD [address] [facility] 195 [place], [place] 317465 Assigned Surgical Provider 03/20/20 08/07/21 Ankita Park MD [address] [address] Assigned Behavioral Health Provider 05/03/20 06/29/23 Ankita Park MD [facility] [address] [address] machine ii engraver 06/10/20 Luna Simons MD 420 [facility] 480 [place] [address] Assigned Cancer Care Provider 07/26/20 06/26/21 Jose Zaragoza DIRECTOR OF SUSTAINABILITY 6405 [place] [address] Assigned Heart and Vascular Provider 11/08/20 02/04/22 Mio Mclean MD 420 [facility] 494 [place] [address] Assigned Cancer Care Provider 06/27/21 09/11/21 Luna Simons MD [address] [id number] Assigned Cancer Care Provider 09/12/21 01/18/24 Nadja Hagen MD [address] 2, [address] [place] [address] Resident Psychiatry 04/01/22 05/13/24 Batool Atkinson, PhD LP [address] [place], [place] 286[address]82 [place], [place] [address] Psychologist Licensed Mental Health 04/01/22 Prisca Miller MD 516 [facility] 295 [place], [place] [address] Resident Neurology 02/10/23 Jennyfer Steele APRN BENDING MACHINE OPERATOR [address] [place] [address] Nurse Practitioner Psychiatry 02/23/23 Jennyfer Steele APRN BENDING MACHINE OPERATOR [address] [place] [address] Assigned Behavioral Health Provider 06/30/23 Sadaf Apple NP Assigned PCP 07/21/23 09/18/23 [facility] [address] [place] [address] Assigned PCP 09/19/23 Yamel Saha PA-C 420 [facility] 480 [place], [place] 263545 Assigned Cancer Care Provider 01/19/24 04/19/24 Luna Simons MD 420 [facility] 480 [place], [place] 9[address]375 Assigned Cancer Care Provider 04/20/24 documented as of this encounter
--- OUTSIDE RECORDS SUMMARY | 2024-10-15 17:07 | XMS_ITS | Encounter Summary ---
Author Organization [place] Address [address] [place] [address] Care Team Providers Care Stopper Maker Name Role Phone Cyndie Eisenberg NP Primary Care Provider + Rodney Natarajan MD Unavailable [phone] Luna Simons MD Unavailable Caroline Duque RN Unavailable [phone] Martha White MD Unavailable Pedrito Ramirez MD Unavailable [phone] Rodney Natarajan MD Unavailable [phone] Ankita Park MD Unavailable [phone] Ankita Park MD Unavailable [phone] Luna Simons MD Unavailable Jose Zaragoza NP Unavailable Mio Mclean MD Unavailable [phone] Luna Simons MD Unavailable Nadja Hagen MD Unavailable [phone] Batool Atkinson PhD LP Unavailable [phone] Prisca Miller MD Unavailable [phone] Jennyfer Steele APRN UPHOLSTERY DEPARTMENT SUPERVISOR Unavailable +- Jennyfer Steele ARRANGER ASSEMBLER UPHOLSTERY DEPARTMENT SUPERVISOR Unavailable + Sadaf Apple NP Unavailable Unavailable Clinic - [facility] Unavailabl e Yamel Saha PA-C Unavailable Luna Simons MD Unavailable [phone] Encounter Details Date Type Department Care Team (Late Contact Info) Description 08/18/2020 MyC Medical Advice [facility] Cancer [address] [address] Talita Bradshaw Social History Tobacco [...] 9:15 AM CDT Ancillary Procedure [facility] Imaging [address] 2nd [place] [address] Luna Simons MD [address] [place] [address] 09/15/2025 10:00 AM CDT Oncology Visit [facility] Cancer [address] [address] Luna Simons MD [address] [place] [address] documented as of this encounter Visit Diagnoses Not on filedocumented in this encounter Additional Health Concerns Infection Onset Date Last Indicated Resolved Time Rule Out COVID-19 01/24/2023 01/24/2023 01/24/2023 10:32 PM CDT documented as of this encounter Care Teams Stopper Maker Relationship Specialty Start Date End Date Cyndie Eisenberg NP [address] [place] [address] PCP - General 09/25/19 Rodney Natarajan MD [address] [facility] 195 [place], [place] 871885 General Surgery 09/25/19 Luna Simons MD [address] [facility] 480 [place], [place] [address] Hematology 09/25/19 Caroline Duque, RN Specialty Chrome Plater Helper Breast Oncology 09/30/19 Martha White MD [address] [place] [address] [address] [place], [place] 219774 pressure washer 11/01/19 Pedrito Ramirez MD 6405 [facility] [address] [place] [address] Assigned Heart and Vascular Provider 03/20/20 11/07/20 Rodney Natarajan MD [address] [facility] 195 [place], [place] 703495 Assigned Surgical Provider 03/20/20 08/07/21 Ankita Park MD [facility] [address] Assigned Behavioral Health Provider 05/03/20 06/29/23 Ankita Park MD 2450 [facility] [address] [address] pressure washer 06/10/20 Luna Simons MD 420 [facility] 480 [place], [place] 493495 Assigned Cancer Care Provider 07/26/20 06/26/21 Jose Zaragoza NP 6405 [facility] [place] [address] Assigned Heart and Vascular Provider 11/08/20 02/04/22 Mio Mclean MD 420 [facility] 494 [place], [place] [address] Assigned Cancer Care Provider 06/27/21 09/11/21 Luna Simons MD 420 [facility] 480 [place] [address] Assigned Cancer Care Provider 09/12/21 01/18/24 Nadja Hagen MD [address] 2, [address] [place], [place] [address] Resident Psychiatry 04/01/22 05/13/24 Batool Atkinson, PhD LP [address] [place] [address] [address] [place], [place] 4[address]64 Psychologist Licensed Mental Health 04/01/22 Prisca Miller MD 516 [facility] 295 [place] [address] Resident Neurology 02/10/23 Jennyfer Steele APRN UPHOLSTERY DEPARTMENT SUPERVISOR [address] [place] [address] [address] [place] [address] Nurse Practitioner Psychiatry 02/23/23 Jennyfer Steele APRN UPHOLSTERY DEPARTMENT SUPERVISOR [address] [place] [address] [address] [place] [address] Assigned Behavioral Health Provider 06/30/23 Sadaf Apple NP Assigned PCP 07/21/23 09/18/23 [facility] [address] [place] [address] Assigned PCP 09/19/23 Yamel Saha PA-C 420 [facility] 480 [place], [place] 327865 Assigned Cancer Care Provider 01/19/24 04/19/24 Luna Simons MD 420 [facility] 480 [place], [place] 6[address]95 Assigned Cancer Care Provider 04/20/24 documented as of this encounter
--- OUTSIDE RECORDS SUMMARY | 2024-10-15 17:08 | XMS_ITS | Encounter Summary ---
Author Organization [place] Address [address] [place] [address] Care Team Providers Care Inseam Trimming Machine Operator Name Role Phone Cyndie Eisenberg NP Primary Care Provider + Rodney Natarajan MD Unavailable [phone] Luna Simons MD Unavailable aCroline Duque RN Unavailable [phone] Martha White MD Unavailable Pedrito Ramirez MD Unavailable [phone] Rodney Natarajan MD Unavailable [phone] Luna Simons MD Unavailable Martha White MD Unavailable [phone] Mio Mclean MD Unavailable [phone] Ankita Park MD Unavailable [phone] Ankita Park MD Unavailable [phone] Mio Mclean MD Unavailable Luna Simons MD Unavailable Luna Simons MD Unavailable Jose Zaragoza NP Unavailable Mio Mclean MD Unavailable [phone] Luna Simons MD Unavailable [phone] Nadja Hagen MD Unavailable [phone] Batool Atkinson PhD LP Unavailable [phone] Prisca Miller MD Unavailable [phone] Jennyfer Steele GYM TEACHER MOTOR BUS DRIVER Unavailable + IvetteJennyfer APRN MOTOR BUS DRIVER Unavailable + Sadaf Apple NP Unavailable Unavailable Clinic - [facility] Unavailabl e Yamel Saha PA-C Unavailable [phone] Luna Simons MD Unavailable [phone] Encounter Details Date Type Department Care Team (Late st Contact Info) Description 11/14/2019 MyC Medical Advice [facility] [address] [place] [address] Luna Simons MD [address] [place] [address] Social History Tobacco Use Types Packs/Day Years Used Date Smoking Tobacco: Never Smokeless Tobacco: Never Comments Unknown Sex and Gender Information Value Date Recorded Sex Assigned at Not on file Legal Sex Female 9:05 AM CDT Gender Identity Not on file Sexual Orientation Not on file COVID-19 Exposure Response Date Recorded In the last month, have you been in contact with someone who was confirmed or suspected to have Coronavirus / COVID-19? No / Unsure 11/12/2019 11:18 AM CDT documented as of this encounter Plan of Treatment Upcoming Encounters Date Type Department Care Team (Late st Contact Info) Description 09/15/2025 9:15 AM CDT Ancillary Procedure [facility] [place] [address] [place] [address] 2nd [place] [address] Luna Simons MD [address] [place] [address] 09/15/2025 10:00 AM CDT Oncology Visit [facility] 909 [place] [address] Luna Simons MD 420 [facility] 480 [place] [address] documented as of this encounter Visit Diagnoses Not on filedocumented in this encounter Additional Health Concerns Infection Onset Date Last Indicated Resolved Time Rule Out COVID-19 01/24/2023 01/24/2023 01/24/2023 10:32 PM CDT documented as of this encounter Care Teams Inseam Trimming Machine Operator Relationship Specialty Start Date End Date Cyndie Eisenberg TECHNICAL PROGRAM MANAGER [address] [place] [address] PCP - General 09/25/19 Rodney Natarajan MD 420 [facility] 195 [place] [address] General Surgery 09/25/19 Luna Simons MD [address] [place] [address] 480 [place] [address] Hematology 09/25/19 Caroline Duque, RN Specialty Director Of Music Therapy Breast Oncology 09/30/19 Martha White MD [address] [place] [address] [place], [place] [address] dice spotter 11/01/19 Pedrito Ramirez MD [address] [place] [address] [place] [address] Assigned Heart and Vascular Provider 03/20/20 11/07/20 Rodney Natarajan MD [address] [facility] 195 [place] [address] Assigned Surgical Provider 03/20/20 08/07/21 Luna Simons MD [address] [facility] 480 [place] [address] Assigned Cancer Care Provider 03/20/20 04/11/20 Martha White MD [address] [place] [address] [address] [place], [place] 854024 Assigned Behavioral Health Provider 03/20/20 05/02/20 Mio Mclean MD [address] [facility] 494 [place] [address] Assigned Cancer Care Provider 04/12/20 04/21/20 Ankita Park MD [address] [address] Assigned Behavioral Health Provider 05/03/20 06/29/23 Ankita Park MD [address] [phone] dice spotter 06/10/20 Mio Mclean MD [address] [facility] 494 [place] [address] Assigned Cancer Care Provider 05/10/20 07/25/20 Luna Simons MD [address] [facility] 480 [place] [address] Assigned Cancer Care Provider 04/22/20 05/09/20 Luna Simons MD 420 [facility] 480 [place], [place] 9[address]155 Assigned Cancer Care Provider 07/26/20 06/26/21 Jose Zaragoza, TECHNICAL PROGRAM MANAGER [address] [facility] [place] 021755 Assigned Heart and Vascular Provider 11/08/20 02/04/22 Mio Mclean MD 420 [facility] 494 [place], [place] [address] Assigned Cancer Care Provider 06/27/21 09/11/21 Luna Simons MD 420 [facility] 480 [place], [place] [address]315 Assigned Cancer Care Provider 09/12/21 01/18/24 Nadja Hagen MD [facility] S [facility] Floor 2, [address] [place], [place] 49[address]84 Resident Psychiatry 04/01/22 05/13/24 Batool Atkinson, PhD LP [address] [place] [address] [address] [place], [place] [address] Psychologist Licensed Mental Health 04/01/22 Prisca Miller MD 6 [facility] 295 [place], [place] [address]405 Resident Neurology 02/10/23 Jennyfer Steele, GYM TEACHER MOTOR BUS DRIVER [address] [place] [place], [place] [address] Nurse Practitioner Psychiatry 02/23/23 Jennyfer Steele APRN MOTOR BUS DRIVER [address] [place] 2396575 [place], [place] 847914 Assigned Behavioral Health Provider 06/30/23 Sadaf Apple NP Assigned PCP 07/21/23 09/18/23 [facility] [address] [place] [address] Assigned PCP 09/19/23 Yamel Saha PA-C [address] 239615 Assigned Cancer Care Provider 01/19/24 04/19/24 Luna Simons MD [address] 6[address] Assigned Cancer Care Provider 04/20/24 documented as of this encounter
--- OUTSIDE RECORDS SUMMARY | 2024-10-15 17:08 | XMS_ITS | Encounter Summary ---
Author Organization [facility] Address [address] [place] [address] Care Team Providers Care Manager Fixed Income Name Role Phone Cyndie Eisenberg NP Primary Care Provider + Rodney Natarajan MD Unavailable Luna Simons MD Unavailable Caroline Duque RN Unavailable [phone] Martha White MD Unavailable [phone] Pedrito Ramirez MD Unavailable Rodney Natarajan MD Unavailable +[phone] Ankita Park MD Unavailable [phone] Ankita Park MD Unavailable [phone] Luna Simons MD Unavailable Jose Zaragoza NP Unavailable Mio Mclean MD Unavailable [phone] Luna Simons MD Unavailable Nadja Haegn MD Unavailable [phone] Batool Atkinson PhD LP Unavailable [phone] Prisca Miller MD Unavailable [phone] Jennyfer Setele APRN FARM OWNER OPERATOR Unavailable +- IvetteJennyfer vaughan APRN FARM OWNER OPERATOR Unavailable + Sadaf Apple NP Unavailable Unavailable Clinic - [facility] Unavailabl e Yamel Saha PA-C Unavailable [phone] Luna Simons MD Unavailable [phone] Reason for Visit * Reason Onset Date Comments Medication Request 09/12/2020 Cymbalta 80 m g Encounter Details Date Type Department Care Team (Late st Contact Info) Description 09/12/2020 MyC Medical Advice [facility] [place] [id number] [address] [address] Ankita Park MD [address] [address] Medication Request (Cymbalta 80 mg ) Social History Tobacco Use Types Packs/Day Years [...] have Coronavirus / COVID-19? No / Unsure 09/08/2020 1:39 PM CDT documented as of this encounter Miscellaneous Notes * Telephone Encounter - Thu Henderson RN - 09/15/2020 8:02 AM CDT Images from the original note were not included. Ankita Park MD You 10 hours ago (9:29 PM) Please, yes 30 days ??0RF Message text - Cymbalta 20 mg tabs refilled per providers approval - Med tab changed to reflect this - Patient notified via MyChart * Telephone Encounter - Thu Henderson RN - 09/14/2020 2:43 PM CDT Images from the original note were not included. Question about medications Ankita Park MD You 2 hours ago (12:03 PM) Regarding Cymbalta: -in Mar 2020 dose increased 60mg to 90mg -Jul 22, 2020 dose decreased 90mg to 60mg d/t headaches, feeling foggy & some BP elevation Cymbalta does come in 20mg caps. I propose we increase to 80mg to try to address the current sxs without bringing back adverse effects (hopefully). Pt should check BP 2x a week for 3 weeks, if possible, and send results to us via [employer] And CALL us for values over SBP 140 or DBP 90 Thx! Message text Will notify patient via [employer] documented in this encounter Plan of Treatment Upcoming Encounters Date Type Department Care Team (Late st Contact Info) Description 09/15/2025 9:15 AM CDT Ancillary Procedure [facility] Breast [facility] Imaging [place] 909 [facility] 2nd [place] [address] Luna Simons MD [address] [place] [address] 09/15/2025 10:00 AM CDT Oncology Visit [facility] 909 [place] [address] Luna Simons MD [address] [place] [address] [phone] documented as of this encounter Visit Diagnoses Diagnosis Anxiety- Primary Anxiety state, unspecified documented in this encounter Additional Health Concerns Infection Onset Date Last Indicated Resolved Time Rule Out COVID-19 01/24/2023 01/24/2023 01/24/2023 10:32 PM CDT documented as of this encounter Care Teams Manager Fixed Income Relationship Specialty Start Date End Date Cyndie Eisenberg NP [address] [place] [address] PCP - General 09/25/19 Rodney Natarajan MD 420 [facility] 195 [place], [place] 088845 General Surgery 09/25/19 Luna Simons MD 420 [facility] 480 [place], [place] 696285 Hematology 09/25/19 Caroline Duque, ASHLIE Specialty Medical Records Supervisor Breast Oncology 09/30/19 Martha White MD [address] [place] [address] [address] [place], [place] 4515[address] hand flesher 11/01/19 Pedrito Ramirez MD 6405 [facility] [address] [place] [address] Assigned Heart and Vascular Provider 03/20/20 11/07/20 Rodney Natarajan MD 420 [facility] 195 [place] [address] Assigned Surgical Provider 03/20/20 08/07/21 Ankita Park MD [address] [place], [place] [address] [address] [place] [phone] Assigned Behavioral Health Provider 05/03/20 06/29/23 Ankita Park MD 2450 [facility] [address] [place] [address], [place] [phone] hand flesher 06/10/20 Luna Simons MD 420 [facility] 480 [place] [address] Assigned Cancer Care Provider 07/26/20 06/26/21 Jose Zaragoza, REGISTRATION OFFICER 6405 [facility] [place], [place] [address] Assigned Heart and Vascular Provider 11/08/20 02/04/22 Mio Mclean MD 420 [facility] 494 [place], [place] 18[address]35 Assigned Cancer Care Provider 06/27/21 09/11/21 Luna Simons MD 420 [facility] 480 [place], [place] [address] Assigned Cancer Care Provider 09/12/21 01/18/24 Nadja Hagen MD [address] 2, [address] [place], [place] [address] Resident Psychiatry 04/01/22 05/13/24 Batool Atkinson, PhD LP 2450 [facility] [address] [place], [place] [address] Psychologist Licensed Mental Health 04/01/22 Prisca Miller MD 516 [facility] 295 [place], [place] 902445 Resident Neurology 02/10/23 Jennyfer Steele APRN FARM OWNER OPERATOR 2312 S [facility] [address] [place] [address] Nurse Practitioner Psychiatry 02/23/23 Jennyfer Steele APRN FARM OWNER OPERATOR 2312 S [facility] [address] [place] [address] Assigned Behavioral Health Provider 06/30/23 Sadaf Apple NP Assigned PCP 07/21/23 09/18/23 [facility] [address] [place] [address] Assigned PCP 09/19/23 Yamel Saha PA-C 420 [facility] 480 [place], [place] 450515 Assigned Cancer Care Provider 01/19/24 04/19/24 Luna Simons MD 420 [facility] 480 [place], [place] 261255 Assigned Cancer Care Provider 04/20/24 documented as of this encounter
--- OUTSIDE RECORDS SUMMARY | 2024-10-15 17:08 | XMS_ITS | Encounter Summary ---
Author Organization [facility] Address [address] [place] [address] Care Team Providers Care Patient Financial Specialist Name Role Phone Cyndie Eisenberg NP Primary Care Provider + Rodney Natarajan MD Unavailable [phone] Luna Simons MD Unavailable [phone] Caroline Duque RN Unavailable [phone] Martha White MD Unavailable [phone] Ankita Park MD Unavailable Ankita Park MD Unavailable [phone] Luna Simons MD Unavailable [phone] Nadja Hagen MD Unavailable [phone] Batool Atkinson PhD LP Unavailable [phone] Prisca Miller MD Unavailable [phone] Jennyfer Steele APRN PROFESSOR OF ENGLISH Unavailable +[phone] Jennyfer Steele APRN PROFESSOR OF ENGLISH Unavailable + [phone] Sadaf Apple NP Unavailable Unavailable [facility] Unavailabl e Yamel Saha PA-C Unavailable [phone] Luna Simons MD Unavailable [phone] Encounter Details Date Type Department Care Team (Late st Contact Info) Description 03/03/2023 MyC Medical Advice [address] [address] Lani Mahajan Social History Tobacco Use Types Packs/Day Years Used Date Smoking Tobacco: Never Smokeless Tobacco: Never Alcohol Use Standard Drinks/Week Comments Yes 0 (1 standard drink = 0.6 oz pur e alcohol) rare PHQ-2 Answer Date Recorded PHQ-2 Score 1 12/07/2022 Adolescent Education Answer Date Record ed Getting [...] was confirmed or suspected to have Coronavirus/COVID-19? Unable to assess 02/10/2023 11:00 AM CDT documented as of this encounter Plan of Treatment Upcoming Encounters Date Type Department Care Team (Late st Contact Info) Description 09/15/2025 9:15 AM CDT Ancillary Procedure [facility] Breast Center Imaging [address] 2nd [place] [address] Luna Simons MD [address] [place] [address] 09/15/2025 10:00 AM CDT Oncology Visit [facility] [address] [place] [address] Luna Simons MD [address] [place] [address] [phone] documented as of this encounter Visit Diagnoses Not on filedocumented in this encounter Additional Health Concerns Assessment Noted Time PHQ-9 Depression Total Score: 22 022 3:25 PM INFRASTRUCTURE MANAGER documented as of this encounter Care Teams Patient Financial Specialist Relationship Specialty Start Date End Date Cyndie Eisenberg NP [address] [place] [address] PCP - General 09/25/19 Rodney Natarajan MD 420 [facility] 195 [place] [address] General Surgery 09/25/19 Luna Simons MD 420 [facility] 480 [place] [address] MD Hematology 09/25/19 Caroline Duque, ASHLIE Specialty Injection Molding Process Technician Breast Oncology 09/30/19 Martha White MD [address] [place] [address] [place], [place] 9665[address] board liner operator 11/01/19 Ankita Park MD [address] [place] [phone] Assigned Behavioral Health Provider 05/03/20 06/29/23 Ankita Park MD [address] [place] [phone] board liner operator 06/10/20 Luna Simons MD 420 [facility] 480 [place], [place] 67[address] Assigned Cancer Care Provider 09/12/21 01/18/24 Nadja Hagen MD [address] 2, [address] [place], [place] [address] Resident Psychiatry 04/01/22 05/13/24 Batool Atkinson, PhD LP 2450 [facility] [address] [place] [address] Psychologist Licensed Mental Health 04/01/22 Prisca Miller MD 516 [facility] 295 [place], [place] 8[address]85 Resident Neurology 02/10/23 Jennyfer Steele APRN PROFESSOR OF ENGLISH [address] [place] [address] Nurse Practitioner Psychiatry 02/23/23 Jennyfer Steele APRN PROFESSOR OF ENGLISH [facility] [address] [place] [address] Assigned Behavioral Health Provider 06/30/23 Sadaf Apple NP Assigned PCP 07/21/23 09/18/23 [facility] [address] [place] [address] Assigned PCP 09/19/23 Yamel Saha PA-C 420 [facility] 480 [place], [place] 38[address]39 Assigned Cancer Care Provider 01/19/24 04/19/24 Luna Simons MD 420 [facility] 480 [place] [address] Assigned Cancer Care Provider 04/20/24 documented as of this encounter
--- OUTSIDE RECORDS SUMMARY | 2024-10-15 17:08 | XMS_ITS | Encounter Summary ---
Author Organization [facility] Address [address] [place] [address] Care Team Providers Care Physician Gynecologist Name Role Phone Cyndie Eisenberg NP Primary Care Provider + Rodney Natarajan MD Unavailable [phone] Luna Simons MD Unavailable [phone] Caroline Duque RN Unavailable [phone] Martha White MD Unavailable [phone] Ankita Park MD Unavailable [phone] Ankita Park MD Unavailable [phone] Luna Simons MD Unavailable [phone] Nadja Hagen MD Unavailable [phone] Batool Atkinson PhD LP Unavailable [phone] Prisca Miller MD Unavailable [phone] Jennyfer Steele APRN TEST AND RESEARCH REACTOR OPERATOR Unavailable +[phone] Jennyfer Steele APRN TEST AND RESEARCH REACTOR OPERATOR Unavailable + 3 Sadaf Apple NP Unavailable Unavailable [facility] Unavailabl e Yamel Saha PA-C Unavailable [phone] Luna Simons MD Unavailable [phone] Encounter Details Date Type Department Care Team (Late st Contact Info) Description 03/23/2023 MyC Medical Advice [facility] Cancer [address] [address] Luna Simons MD [address] [place] [address]105 Recurrent major depressive disorder, in full remission Social History Tobacco Use Types Packs/Day Years [...] Ancillary Procedure [facility] Breast [facility] Imaging [address] 2nd [place] [address] Luna Simons MD [address] [place] [address]645 09/15/2025 10:00 AM CDT Oncology Visit [facility] [address] [place] [phone] Luan Simons MD [address] [place] [address] [phone] documented as of this encounter Visit Diagnoses Diagnosis Recurrent major depressive disorder, in full remission documented in this encounter Additional Health Concerns Assessment Noted Time PHQ-9 Depression Total Score: 22 022 3:25 PM OVERLOCK COLLAR SETTER documented as of this encounter Care Teams Physician Gynecologist Relationship Specialty Start Date End Date Cyndie Eisenberg, AUTOMATIC VULCANIZING LEAD OPERATOR [address] [place] [address] PCP - General 09/25/19 Rodney Natarajan MD 420 [facility] 195 [place] [address] General Surgery 09/25/19 Luna Simons MD 420 [facility] 480 [place] [address] MD Hematology 09/25/19 Caroline Duque, ASHLIE Specialty Record Maker Breast Oncology 09/30/19 Martha White MD [address] [facility] [address] [place] [address] [place], [place] [address] forepart reducer 11/01/19 Ankita Park MD [address] [place] [address] Assigned Behavioral Health Provider 05/03/20 06/29/23 Ankita Park MD [address] [place] [address] forepart reducer 06/10/20 Luna Simons MD [address] [place] [address] 480 [place], [place] 757925 Assigned Cancer Care Provider 09/12/21 01/18/24 Nadja Hagen MD [address] 2, [address] [place], [place] [address] Resident Psychiatry 04/01/22 05/13/24 Batool Atkinson, PhD LP 2450 [facility] [address] [place] [address] Psychologist Licensed Mental Health 04/01/22 Prisca Miller MD 516 [facility] 295 [place], [place] [address] Resident Neurology 02/10/23 Jennyfer Steele APRN TEST AND RESEARCH REACTOR OPERATOR [address] [place] [address] [address] [place] [address] Nurse Practitioner Psychiatry 02/23/23 Jennyfer Steele APRN TEST AND RESEARCH REACTOR OPERATOR [facility] [address] [place] [address] Assigned Behavioral Health Provider 06/30/23 Sadaf Apple NP Assigned PCP 07/21/23 09/18/23 [facility] [address] [place] [address] Assigned PCP 09/19/23 Yamel Saha PA-C 420 [facility] 480 [place], [place] 332705 Assigned Cancer Care Provider 01/19/24 04/19/24 Luna Simons MD 420 [facility] 480 [place] [address] Assigned Cancer Care Provider 04/20/24 documented as of this encounter
--- OUTSIDE RECORDS SUMMARY | 2024-10-15 17:08 | XMS_ITS | Encounter Summary ---
Author Organization [facility] Address [address] [place] [address] Care Team Providers Care Fiberglass Pipe Covering Supervisor Name Role Phone Cyndie Eisenberg NP Primary Care Provider + Rodney Natarajan MD Unavailable [phone] Luna Simons MD Unavailable [phone] Caroline Duque RN Unavailable [phone] Martha White MD Unavailable Pedrito Ramirez MD Unavailable [phone] Rodney Natarajan MD Unavailable [phone] Luna Simons MD Unavailable Martha White MD Unavailable [phone] Mio Mclean MD Unavailable [phone] Ankita Park MD Unavailable [phone] Ankita Park MD Unavailable [phone] Mio Mclean MD Unavailable [phone] Luna Simons MD Unavailable Luna Simons MD Unavailable Jose Zaragoza NP Unavailable Mio Mclean MD Unavailable Luna Simons MD Unavailable [phone] Nadja Hagen MD Unavailable +[phone] Batool Atkinson PhD LP Unavailable [phone] Prisca Miller MD Unavailable [phone] Jennyfer Steele NURSING ASSOCIATE MANAGER ARMY Unavailable + IvetteJennyfer vaughan APRN MANAGER ARMY Unavailable + Sadaf Apple NP Unavailable Unavailable [facility] Unavailabl e Yamel Saha PA-C Unavailable [phone] Luna Simons MD Unavailable [phone] Encounter Details Date Type Department Care Team (Late st Contact Info) Description 11/17/2019 MyC Medical Advice [facility] [address] [place] 200 [facility] [place] [phone] John Moreno, Ps[address] [phone] Social History Tobacco Use Types Packs/Day Years [...] have Coronavirus / COVID-19? No / Unsure 11/19/2019 8:49 AM CDT documented as of this encounter Plan of Treatment Upcoming Encounters Date Type Department Care Team (Late st Contact Info) Description 09/15/2025 9:15 AM CDT Ancillary Procedure [facility] Breast [facility] Imaging [place] 909 [facility] 2nd [place] [address] Luna Simons MD [address] [place] [address] [phone] 09/15/2025 10:00 AM CDT Oncology Visit [facility] 909 [facility] [place] [phone] Luna Simons MD 420 [facility] 480 [place] [address] documented as of this encounter Visit Diagnoses Not on filedocumented in this encounter Additional Health Concerns Infection Onset Date Last Indicated Resolved Time Rule Out COVID-19 01/24/2023 01/24/2023 01/24/2023 10:32 PM CDT documented as of this encounter Care Teams Fiberglass Pipe Covering Supervisor Relationship Specialty Start Date End Date Cyndie Eisenberg DRUM PRINTER [address] [place] [address] PCP - General 09/25/19 Rodney Natarajan MD 420 [facility] 195 [place], [place] 4464[address] General Surgery 09/25/19 Luna Simons MD 420 [facility] 480 [place] [address] Hematology 09/25/19 Caroline Duque, RN Specialty Side Splitter Breast Oncology 09/30/19 Martha White MD [address] [place] [address] [place], [place] [address] clinic director 11/01/19 Pedrito Ramirez MD [address] [place] [address] [place], [place] [address] Assigned Heart and Vascular Provider 03/20/20 11/07/20 Rodney Natarajan MD [address] [facility] 195 [place] [address] Assigned Surgical Provider 03/20/20 08/07/21 Luna Simons MD [address] [facility] 480 [place] [address] Assigned Cancer Care Provider 03/20/20 04/11/20 Martha White MD [address] [place] [address] [address] [place], [place] [address] Assigned Behavioral Health Provider 03/20/20 05/02/20 Mio Mclean MD [address] [facility] 494 [place] [address] Assigned Cancer Care Provider 04/12/20 04/21/20 Ankita Park MD [address] [place] [address] Assigned Behavioral Health Provider 05/03/20 06/29/23 Ankita Park MD [address] [place] [phone] clinic director 06/10/20 Mio Mclean MD [address] [facility] 494 [place] [address] Assigned Cancer Care Provider 05/10/20 07/25/20 Luna Simons MD [address] [facility] 480 [place] [address] Assigned Cancer Care Provider 04/22/20 05/09/20 Luna Simons MD 420 [facility] 480 [place], [place] 8[address] Assigned Cancer Care Provider 07/26/20 06/26/21 Jose Zaragoza, DRUM PRINTER 6405 [facility] [place] [address] Assigned Heart and Vascular Provider 11/08/20 02/04/22 Mio Mclean MD 420 [facility] 494 [place], [place] 9[address] Assigned Cancer Care Provider 06/27/21 09/11/21 Luna Simons MD 420 [facility] 480 [place] [address] Assigned Cancer Care Provider 09/12/21 01/18/24 Nadja Hagen MD [facility]2 S [facility] Floor 2, [address] [place], [place] [address] Resident Psychiatry 04/01/22 05/13/24 Batool Atkinson, PhD LP [facility]0 [facility] [address] [place], [place] [address] Psychologist Licensed Mental Health 04/01/22 Prisca Miller MD 6 [facility] 295 [place], [place] 3[address]45 Resident Neurology 02/10/23 Jennyfer Steele, NURSING ASSOCIATE MANAGER ARMY [address] [place] [address] [place] [address] Nurse Practitioner Psychiatry 02/23/23 Jennyfer Steele APRN [facility] [address] [place] [address] [address] [place], [place] 211454 Assigned Behavioral Health Provider 06/30/23 Sadaf Apple NP Assigned PCP 07/21/23 09/18/23 [facility] [address] [place] [address] Assigned PCP 09/19/23 Yamel Saha PA-C 420 [facility] 480 [place], [place] 144725 Assigned Cancer Care Provider 01/19/24 04/19/24 Luna Simons MD 420 [facility] 480 [place], [place] 0[address]755 Assigned Cancer Care Provider 04/20/24 documented as of this encounter
--- OUTSIDE RECORDS SUMMARY | 2024-10-15 17:08 | XMS_ITS | Encounter Summary ---
Author Organization [place] Address [address] [place] [address] Care Team Providers Care Forestry Farm Laborer Name Role Phone Cyndie Eisenberg NP Primary Care Provider + Rodney Natarajan MD Unavailable [phone] Luna Simons MD Unavailable +[phone] Caroline Duque RN Unavailable [phone] Martha White MD Unavailable [phone] Pedrito Ramirez MD Unavailable +[phone] Rodney Natarajan MD Unavailable +[phone] Luna Simons MD Unavailable Martha White MD Unavailable Mio Mclean MD Unavailable +[phone] Ankita Park MD Unavailable +[phone] Ankita Park MD Unavailable +[phone] Mio Mclean MD Unavailable +[phone] Luna Simons MD Unavailable Luna Simons MD Unavailable Jose Zaragoza NP Unavailable [phone] Mio Mclean MD Unavailable +[phone] Luna Simons MD Unavailable +[phone] Nadja Hagen MD Unavailable +[phone] Batool Atkinson PhD LP Unavailable +[phone] Prisca Miller MD Unavailable +[phone] Ramin Steelen Ravi ELECTROTYPE FINISHER WINE CELLAR WORKER Unavailable + Jennyfer Steele APRN WINE CELLAR WORKER Unavailable + Sadaf Apple NP Unavailable Unavailable Clinic - [facility] Unavailabl e Yamel Saha PA-C Unavailable +[phone] Luna Simons MD Unavailable +[phone] Encounter Details Date Type Department Care Team (Late st Contact Info) Description 02/10/2020 [facility] Medical Advice [facility] [address] [place] [address] [facility] Social History Tobacco Use Types Packs/Day Years Used Date Smoking Tobacco: Former Cigarettes Q uit: 01/03/2016 Smokeless Tobacco: Never Alcohol Use Standard Drinks/Week [...] have Coronavirus / COVID-19? No / Unsure 02/07/2020 10:24 AM CDT documented as of this encounter Plan of Treatment Upcoming Encounters Date Type Department Care Team (Late st Contact Info) Description 09/15/2025 9:15 AM CDT Ancillary Procedure [facility] Imaging [place] 909 [facility] 2nd [place] [address] Luna Simons MD 420 [facility] 480 [place] [address] 09/15/2025 10:00 AM CDT Oncology Visit [facility] 909 [facility] [place] [address] Luna Simons MD 420 [facility] 480 [place], [place] 291195 documented as of this encounter Visit Diagnoses Not on filedocumented in this encounter Additional Health Concerns Infection Onset Date Last Indicated Resolved Time Rule Out COVID-19 01/24/2023 01/24/2023 01/24/2023 10:32 PM CDT documented as of this encounter Care Teams Forestry Farm Laborer Relationship Specialty Start Date End Date Cyndie Eisenberg RN SOCIAL SERVICES [address] [place] [address] PCP - General 09/25/19 Rodney Natarajan MD [address] [place] [address] 195 [place], [place] 235755 General Surgery 09/25/19 Luna Simons MD [address] [place] [address] 480 [place], [place] 656565 Hematology 09/25/19 Caroline Duque, RN Specialty Embroiderer Breast Oncology 09/30/19 Martha White MD [address] [place] [address] [place] [address] raw scales operator 11/01/19 Pedrito Ramirez MD [address] [place] [address] [place] [address] Assigned Heart and Vascular Provider 03/20/20 11/07/20 Rodney Natarajan MD 420 [place] [facility] 195 [place] [address] Assigned Surgical Provider 03/20/20 08/07/21 Luna Simons MD [address] [place] [address] [facility] 480 [place] [address] Assigned Cancer Care Provider 03/20/20 04/11/20 Martha White MD [address] [place] [address] [address] [place], [place] 574264 Assigned Behavioral Health Provider 03/20/20 05/02/20 Mio Mclean MD 420 [place] [address] [facility] 494 [place] [address] Assigned Cancer Care Provider 04/12/20 04/21/20 Ankita Park MD [facility] [address] [address] Assigned Behavioral Health Provider 05/03/20 06/29/23 Ankita Park MD [facility] [address] [phone] raw scales operator 06/10/20 Mio Mclean MD 420 [place] [address] [facility] 494 [place] [address] Assigned Cancer Care Provider 05/10/20 07/25/20 Luna Simons MD [address] [place] [facility] 480 [place] [address] Assigned Cancer Care Provider 04/22/20 05/09/20 Luna Simons MD 420 [facility] [place] 480 [place] [address] Assigned Cancer Care Provider 07/26/20 06/26/21 Jose Zaragoza, RN SOCIAL SERVICES 6405 [facility] [place] 20[address]65 Assigned Heart and Vascular Provider 11/08/20 02/04/22 Mio Mclean MD 420 [facility] [place] 494 [place], [place] 763305 Assigned Cancer Care Provider 06/27/21 09/11/21 Luna Simons MD 420 [facility] [place] 480 [place], [place] 041295 Assigned Cancer Care Provider 09/12/21 01/18/24 Nadja Hagen MD [facility] Floor 2, [address] [place], [place] 372104 Resident Psychiatry 04/01/22 05/13/24 Batool Atkinson, PhD LP [address] [place] [address] [address] [place], [place] 226754 Psychologist Licensed Mental Health 04/01/22 Prisca Miller MD 516 [facility] 295 [place], [place] 235085 Resident Neurology 02/10/23 Jennyfer Steele APRN WINE CELLAR WORKER [address] [place] [address] [place], [place] 913154 Nurse Practitioner Psychiatry 02/23/23 Jennyfer Steele APRN WINE CELLAR WORKER [address] [place] [address] [address] [place] [address] Assigned Behavioral Health Provider 06/30/23 Sadaf Apple NP Assigned PCP 07/21/23 09/18/23 [facility] [address] [place] [address] Assigned PCP 09/19/23 Yamel Saha PA-C [address] [place] [address] 624175 Assigned Cancer Care Provider 01/19/24 04/19/24 Luna Simons MD [address] 666535 Assigned Cancer Care Provider 04/20/24 documented as of this encounter
--- OUTSIDE RECORDS SUMMARY | 2024-10-15 17:08 | XMS_ITS | Encounter Summary ---
Author Organization [place] Address [address] [place] [address] Care Team Providers Care Sheeting Puller Name Role Phone Cyndie Eisenberg NP Primary Care Provider + Rodney Natarajan MD Unavailable [phone] Luna Simons MD Unavailable Caroline Duque RN Unavailable [phone] Martha White MD Unavailable [phone] Rodney Natarajan MD Unavailable [phone] Ankita Park MD Unavailable [phone] Ankita Park MD Unavailable [phone] Luna Simons MD Unavailable Jose Zaragoza NP Unavailable [phone] Mio Mclean MD Unavailable [phone] Luna Simons MD Unavailable Nadja Hagen MD Unavailable [phone] Batool Atkinson PhD LP Unavailable [phone] Prisca Miller MD Unavailable [phone] Jennyfer Steele APRN COPY CAMERA OPERATOR Unavailable +[phone] Jennyfer Steele APRN COPY CAMERA OPERATOR Unavailable + [phone] Sadaf Apple NP Unavailable Unavailable Clinic - [facility] Unavailabl e Yamel Saha PA-C Unavailable Luna Simons MD Unavailable Encounter Details Date Type Department Care Team (Late Contact Info) Description 03/25/2021 MyC Medical Advice [facility] Cancer [address] [address] Talita Bradshaw Social History Tobacco [...] have Coronavirus / COVID-19? No / Unsure 03/22/2021 9:36 AM CDT documented as of this encounter Plan of Treatment Upcoming Encounters Date Type Department Care Team (Late st Contact Info) Description 09/15/2025 9:15 AM CDT Ancillary Procedure [facility] Breast Center Imaging [address] 2nd [place] [address] Luna Simons MD [address] [place] [address] 09/15/2025 10:00 AM CDT Oncology Visit [facility] Cancer [address] [address] Luna Simons MD [address] [place] [address] documented as of this encounter Visit Diagnoses Not on filedocumented in this encounter Additional Health Concerns Infection Onset Date Last Indicated Resolved Time Rule Out COVID-19 01/24/2023 01/24/2023 01/24/2023 10:32 PM CDT documented as of this encounter Care Teams Sheeting Puller Relationship Specialty Start Date End Date Cyndie Eisenberg NP [address] [place] [address] PCP - General 09/25/19 Rodney Natarajan MD 420 [facility] 195 [place], [place] 267875 General Surgery 09/25/19 Luna Simons MD 420 [place] [facility] 480 [place], [place] 135485 Hematology 09/25/19 Caroline Duque, ASHLIE Specialty Wood Router Hand Breast Oncology 09/30/19 Martha White MD [address] [place] [address] [address] [place], [place] [phone] polysomnographic technician 11/01/19 Rodney Natarajan MD 420 [place] [facility] 195 [place], [place] 42657[address] Assigned Surgical Provider 03/20/20 08/07/21 Ankita Park MD [facility] [address] [address] Assigned Behavioral Health Provider 05/03/20 06/29/23 Ankita Park MD [facility] [address] [phone] polysomnographic technician 06/10/20 uLna Simons MD 420 [facility] 480 [place], [place] 579125 Assigned Cancer Care Provider 07/26/20 06/26/21 Jose Zaragoza, MESSAGING ARCHITECT 6405 [facility] [place] 759395 Assigned Heart and Vascular Provider 11/08/20 02/04/22 Mio Mclean MD 420 [facility] 494 [place], [place] 139775 Assigned Cancer Care Provider 06/27/21 09/11/21 Luna Simons MD 420 [facility] [address] [place], [place] 869575 Assigned Cancer Care Provider 09/12/21 01/18/24 Nadja Hagen MD [address] [facility] Floor 2, [address] [place], [place] 176324 Resident Psychiatry 04/01/22 05/13/24 Batool Atkinson, PhD LP [facility] 82 [place], [place] 344574 Psychologist Licensed Mental Health 04/01/22 Prisca Miller MD 6 [facility] 295 [place], [place] 971835 Resident Neurology 02/10/23 Jennyfer Steele, ROASTERMAN COPY CAMERA OPERATOR [address] [place] [address] [place], [place] 978404 Nurse Practitioner Psychiatry 02/23/23 Jennyfer Steele APRN [facility] 23[address] [place] 4664975 [place], [place] 730034 Assigned Behavioral Health Provider 06/30/23 Sadaf Apple NP Assigned PCP 07/21/23 09/18/23 [facility] [address] [place] [address] Assigned PCP 09/19/23 Yamel Saha PA-C [address] 376235 Assigned Cancer Care Provider 01/19/24 04/19/24 Luna Simons MD [address] 558205 Assigned Cancer Care Provider 04/20/24 documented as of this encounter
--- OUTSIDE RECORDS SUMMARY | 2024-10-15 17:08 | XMS_ITS | Encounter Summary ---
Author Organization [facility] Address [address] [place] [address] Care Team Providers Care Tight Barrel Inspector Name Role Phone Cyndie Eisenberg NP Primary Care Provider + Rodney Natarajan MD Unavailable Luna Simons MD Unavailable Caroline Duque RN Unavailable [phone] Martha White MD Unavailable Pedrito Ramirez MD Unavailable [phone] Rodney Natarajan MD Unavailable [phone] Luna Simons MD Unavailable Martha White MD Unavailable [phone] Mio Mclean MD Unavailable [phone] Ankita Park MD Unavailable [phone] Ankita Park MD Unavailable [phone] Mio Mclean MD Unavailable [phone] Luna Simons MD Unavailable Luna Simons MD Unavailable Jose Zaragoza NP Unavailable [phone] Mio Mclean MD Unavailable [phone] Luna Simons MD Unavailable [phone] Nadja Hagen MD Unavailable [phone] Batool Atkinson PhD LP Unavailable [phone] Prisca Miller MD Unavailable [phone] Ivette Jennyferjulieth Rodrigues APRN ELASTIC ATTACHER COVERSTITCH Unavailable + Jennyfer Steele APRN ELASTIC ATTACHER COVERSTITCH Unavailable + Sadaf Apple NP Unavailable Unavailable Clinic - [facility] Unavailabl e Yamel Saha PA-C Unavailable +[phone] Luna Simons MD Unavailable +[phone] Encounter Details Date Type Department Care Team (Late st Contact Info) Description 01/22/2020 MyC Medical Advice [facility] [address] [place] [address] Luna Simons MD [address] [address] Social History Tobacco Use Types [...] have Coronavirus / COVID-19? No / Unsure 01/21/2020 9:05 AM CDT documented as of this encounter Plan of Treatment Upcoming Encounters Date Type Department Care Team (Late st Contact Info) Description 09/15/2025 9:15 AM CDT Ancillary Procedure [facility] Breast Center Imaging [address] 2nd [place] [address] Luna Simons MD 420 [facility] 480 [place], [place] 177255 09/15/2025 10:00 AM CDT Oncology Visit [facility] 909 [facility] [place] [phone] Luna Simons MD 420 [facility] 480 [place], [place] 763305 documented as of this encounter Visit Diagnoses Not on filedocumented in this encounter Additional Health Concerns Infection Onset Date Last Indicated Resolved Time Rule Out COVID-19 01/24/2023 01/24/2023 01/24/2023 10:32 PM CDT documented as of this encounter Care Teams Tight Barrel Inspector Relationship Specialty Start Date End Date Cyndie Eisenberg, AMANDA [address] [place] [address] PCP - General 09/25/19 Rodney Natarajan MD 420 [facility] 195 [place], [place] 545385 General Surgery 09/25/19 Luna Simons MD 420 [facility] 480 [place], [place] 544385 Hematology 09/25/19 Caroline Duque, RN Specialty Air Conditioning Specialist Breast Oncology 09/30/19 Martha White MD [address] [place] [address] [address] [place], [place] 383774 security specialist 11/01/19 Pedrito Ramirez MD 6405 [facility] [address] [place], [place] 341555 Assigned Heart and Vascular Provider 03/20/20 11/07/20 Rodney Natarajan MD 420 [place] [address] [facility] 195 [place] [address] Assigned Surgical Provider 03/20/20 08/07/21 Luna Simons MD 420 [facility] 480 [place] [address] Assigned Cancer Care Provider 03/20/20 04/11/20 Martha White MD [address] [place] [address] [address]275 [place] [address] Assigned Behavioral Health Provider 03/20/20 05/02/20 Mio Mclean MD 420 [facility] 494 [place] [address] Assigned Cancer Care Provider 04/12/20 04/21/20 Ankita Park MD [address] [place] [phone] Assigned Behavioral Health Provider 05/03/20 06/29/23 Ankita Park MD [address] [place] [phone] security specialist 06/10/20 Mio Mclean MD 420 [place] [facility] 494 [place] [address] Assigned Cancer Care Provider 05/10/20 07/25/20 Luna Simons MD 420 [facility] 480 [place] [address] Assigned Cancer Care Provider 04/22/20 05/09/20 Luna Simons MD 420 [facility] 480 [place] [address] Assigned Cancer Care Provider 07/26/20 06/26/21 Jose Zaragoza, AGRICULTURAL PILOT 6405 [facility] [place] [address] Assigned Heart and Vascular Provider 11/08/20 02/04/22 Mio Mclean MD 420 [facility] 494 [place] [address] Assigned Cancer Care Provider 06/27/21 09/11/21 Luna Simons MD 420 [facility] 480 [place], [place] 899965 Assigned Cancer Care Provider 09/12/21 01/18/24 Nadja Hagen MD 2312 S [facility] Floor 2, [address] [place], [place] [address] Resident Psychiatry 04/01/22 05/13/24 Batool Atkinson, PhD LP 2450 [facility] [address] [place], [place] 220744 Psychologist Licensed Mental Health 04/01/22 Prisca Miller MD 516 [facility] 295 [place], [place] 838975 Resident Neurology 02/10/23 Jennyfer Steele APRN ELASTIC ATTACHER COVERSTITCH 2312 S [facility] [place] [address] [place], [place] 490514 Nurse Practitioner Psychiatry 02/23/23 Jennyfer Steele APRN ELASTIC ATTACHER COVERSTITCH 2312 [address] [facility] [place] [address] [place], [place] 208784 Assigned Behavioral Health Provider 06/30/23 Sadaf Apple NP Assigned PCP 07/21/23 09/18/23 [facility] [address] [place] [address] Assigned PCP 09/19/23 Yamel Saha PA-C 420 [facility] 480 [place] [address] Assigned Cancer Care Provider 01/19/24 04/19/24 Luna Simons MD 420 [facility] 480 [place] [address] Assigned Cancer Care Provider 04/20/24 documented as of this encounter
--- OUTSIDE RECORDS SUMMARY | 2024-10-15 17:08 | XMS_ITS | Encounter Summary ---
Author Organization [place] Address [address] [place] [address] Care Team Providers Care Ase Certified Technician Name Role Phone Cyndie Eisenberg NP Primary Care Provider + Rodney Natarajan MD Unavailable [phone] Luna Simons MD Unavailable [phone] Caroline Duque RN Unavailable [phone] Martha White MD Unavailable Pedrito Ramirez MD Unavailable [phone] Rodney Natarajan MD Unavailable +[phone] Luna Simons MD Unavailable Martha White MD Unavailable Mio Mclean MD Unavailable [phone] Ankita Park MD Unavailable [phone] Ankita Park MD Unavailable [phone] Mio Mclean MD Unavailable [phone] Luna Simons MD Unavailable [phone] Luna Simons MD Unavailable Jose Zaragoza NP Unavailable [phone] Mio Mclean MD Unavailable [phone] Luna Simons MD Unavailable +[phone] Nadja Hagen MD Unavailable +[phone] Batool Atkinson PhD LP Unavailable [phone] Prisca Miller MD Unavailable [phone] Ivette Jennyferjulieth Rodrigues APRN HEAD OF INTEGRATED MEDIA Unavailable + Jennyfer Steele APRN HEAD OF INTEGRATED MEDIA Unavailable + Sadaf Apple NP Unavailable Unavailable [facility] Unavailabl e Yamel Saha PA-C Unavailable +[phone] Luna Simons MD Unavailable +[phone] Encounter Details Date Type Department Care Team (Late st Contact Info) Description 02/09/2020 MyC Medical Advice [facility] [address] [place] [address] Luna Simons MD [address] [address] Social History Tobacco Use Types [...] Ancillary Procedure [facility] Imaging [address] 2nd [place] [address] Luna Simons MD 420 [facility] 480 [place], [place] 559485 09/15/2025 10:00 AM CDT Oncology Visit [facility] 909 [facility] [place] [phone] Luna Simons MD 420 [facility] 480 [place], [place] 652985 documented as of this encounter Visit Diagnoses Not on filedocumented in this encounter Additional Health Concerns Infection Onset Date Last Indicated Resolved Time Rule Out COVID-19 01/24/2023 01/24/2023 01/24/2023 10:32 PM CDT documented as of this encounter Care Teams Ase Certified Technician Relationship Specialty Start Date End Date Cyndie Eisenberg, AMANDA [address] [place] [address] PCP - General 09/25/19 Rodney Natarajan MD 420 [facility] 195 [place], [place] 754285 General Surgery 09/25/19 Luna Simons MD 420 [facility] 480 [place], [place] 542355 Hematology 09/25/19 Caroline Duque, RN Specialty Grinder Chipper Breast Oncology 09/30/19 Martha White MD [address] [place] [address] [address] [place], [place] 001154 donor recruiter 11/01/19 Pedrito Ramirez MD 6405 [facility] [address] [place], [place] 365865 Assigned Heart and Vascular Provider 03/20/20 11/07/20 Rodney Natarajan MD 420 [place] [address] [facility] 195 [place] [address] Assigned Surgical Provider 03/20/20 08/07/21 Luna Simons MD 420 [facility] 480 [place] [address] Assigned Cancer Care Provider 03/20/20 04/11/20 Martha White MD [address] [place] [address] [address]275 [place] [address] Assigned Behavioral Health Provider 03/20/20 05/02/20 Mio Mclean MD 420 [facility] 494 [place] [address] Assigned Cancer Care Provider 04/12/20 04/21/20 Ankita Park MD [address] [place] [phone] Assigned Behavioral Health Provider 05/03/20 06/29/23 Ankita Park MD [address] [place] [phone] donor recruiter 06/10/20 Mio Mclean MD 420 [place] [facility] 494 [place] [address] Assigned Cancer Care Provider 05/10/20 07/25/20 Luna Simons MD 420 [facility] 480 [place] [address] Assigned Cancer Care Provider 04/22/20 05/09/20 Luna Simons MD 420 [facility] 480 [place] [address] Assigned Cancer Care Provider 07/26/20 06/26/21 Jose Zaragoza, BREWERY TECHNICIAN 6405 [place] [address] Assigned Heart and Vascular Provider 11/08/20 02/04/22 Mio Mclean MD 420 [facility] 494 [place] [address] Assigned Cancer Care Provider 06/27/21 09/11/21 Luna Simons MD 420 [facility] 480 [place], [place] 697675 Assigned Cancer Care Provider 09/12/21 01/18/24 Nadja Hagen MD 2312 S [facility] Floor 2, [address] [place], [place] [address] Resident Psychiatry 04/01/22 05/13/24 Batool Atkinson, PhD LP 2450 [facility] [address] [place], [place] 6[address] Psychologist Licensed Mental Health 04/01/22 Prisca Miller MD 516 [facility] 295 [place], [place] [address] Resident Neurology 02/10/23 Jennyfer Steele APRN HEAD OF INTEGRATED MEDIA 2312 S [facility] [place] [address] [place], [place] 77[address] Nurse Practitioner Psychiatry 02/23/23 Jennyfer Steele APRN HEAD OF INTEGRATED MEDIA 2312 S [facility] [place] [address] [place], [place] 6360[address] Assigned Behavioral Health Provider 06/30/23 Sadaf Apple NP Assigned PCP 07/21/23 09/18/23 [facility] [address] [place] [address] Assigned PCP 09/19/23 Yamel Saha PA-C 420 [facility] 480 [place] [address] Assigned Cancer Care Provider 01/19/24 04/19/24 Luna Simons MD 420 [facility] 480 [place] [address] Assigned Cancer Care Provider 04/20/24 documented as of this encounter
--- OUTSIDE RECORDS SUMMARY | 2024-10-15 17:08 | XMS_ITS | Encounter Summary ---
Author Organization [facility] Address [address] [place] [address] Care Team Providers Care Benefits Assistant Name Role Phone Cyndie Eisenberg NP Primary Care Provider + Rodney Natarajan MD Unavailable [phone] Luna Simons MD Unavailable Caroline Duque RN Unavailable +[phone] Martha White MD Unavailable [phone] Rodney Natarajan MD Unavailable +[phone] Ankita Park MD Unavailable +[phone] Ankita Park MD Unavailable +[phone] Luna Simons MD Unavailable Jose Zaragoza NP Unavailable Mio Mclean MD Unavailable +[phone] Luna Simons MD Unavailable +[phone] Nadja Hagen MD Unavailable +[phone] Batool Atkinson PhD LP Unavailable [phone] Prisca Miller MD Unavailable +[phone] Jennyfer Steele APRN CEMENT RUBBER Unavailable +[phone] Jennyfer Steele APRN CEMENT RUBBER Unavailable + 3 Sadaf Apple NP Unavailable Unavailable Clinic - [facility] Unavailabl e Yamel Saha PA-C Unavailable [phone] Luna Simons MD Unavailable [phone] Encounter Details Date Type Department Care Team (Late Contact Info) Description 12/25/2020 MyC Medical Advice [address] 5th [place] [address] Alise King RN Social History Tobacco Use Types Packs/Day [...] have Coronavirus / COVID-19? No / Unsure 12/03/2020 2:39 PM CDT documented as of this encounter Plan of Treatment Upcoming Encounters Date Type Department Care Team (Late st Contact Info) Description 09/15/2025 9:15 AM CDT Ancillary Procedure [facility] Imaging [address] 2nd [place] [address] Luna Simons MD [address] [place] [address] 519385 09/15/2025 10:00 AM CDT Oncology Visit [facility] [address] [place] [address] Luna Simons MD [address] [place] [address] 876935 documented as of this encounter Visit Diagnoses Not on filedocumented in this encounter Additional Health Concerns Infection Onset Date Last Indicated Resolved Time Rule Out COVID-19 01/24/2023 01/24/2023 01/24/2023 10:32 PM CDT documented as of this encounter Care Teams Benefits Assistant Relationship Specialty Start Date End Date Cyndie Eisenberg NP [address] [place] [address] PCP - General 09/25/19 Rodney Natarajan MD 420 [facility] 195 [place], [place] 526855 General Surgery 09/25/19 Luna Simons MD 420 [facility] 480 [place], [place] 378265 Hematology 09/25/19 Caroline Duque, ASHLIE Specialty Plan Checker Breast Oncology 09/30/19 Martha White MD [address] [place], [place] [phone] core assembly supervisor 11/01/19 Rodney Natarajan MD 420 [facility] 195 [place], [place] 995015 Assigned Surgical Provider 03/20/20 08/07/21 Ankita Park MD [facility] [address] [address] Assigned Behavioral Health Provider 05/03/20 06/29/23 Ankita Park MD [facility] [address] [phone] core assembly supervisor 06/10/20 Luna Simons MD 420 [facility] 480 [place], [place] 910625 Assigned Cancer Care Provider 07/26/20 06/26/21 Jose Zaragoza, MANAGER GENERAL 6405 [facility] [place] 958425 Assigned Heart and Vascular Provider 11/08/20 02/04/22 Mio Mclean MD 420 [facility] 494 [place], [place] 671205 Assigned Cancer Care Provider 06/27/21 09/11/21 Luna Simons MD 420 [facility] 480 [place], [place] 885765 Assigned Cancer Care Provider 09/12/21 01/18/24 Nadja Hagen MD [address] [facility] Floor 2, [address] [place], [place] 274884 Resident Psychiatry 04/01/22 05/13/24 Batool Atkinson, PhD LP [facility] 82 [place], [place] 00[address]24 Psychologist Licensed Mental Health 04/01/22 Prisca Miller MD 6 [facility] 295 [place], [place] 406285 Resident Neurology 02/10/23 Jennyfer Steele, TRAPEZE ARTIST CEMENT RUBBER [address] [place] [address] [place], [place] 021594 Nurse Practitioner Psychiatry 02/23/23 Jennyfer Steele APRN [facility] [address] [place], [place] 710214 Assigned Behavioral Health Provider 06/30/23 Sadaf Apple NP Assigned PCP 07/21/23 09/18/23 [facility] [address] [place] [address] Assigned PCP 09/19/23 Yamel Saha PA-C [address] [address] Assigned Cancer Care Provider 01/19/24 04/19/24 Luna Simons MD [address] 312885 Assigned Cancer Care Provider 04/20/24 documented as of this encounter
--- OUTSIDE RECORDS SUMMARY | 2024-10-15 17:08 | XMS_ITS | Encounter Summary ---
Author Organization [facility] Address [address] [place] [address] Care Team Providers Care Swing Ride Operator Name Role Phone Cyndie Eisenberg NP Primary Care Provider + Rodney Natarajan MD Unavailable [phone] Luna Simons MD Unavailable +[phone] Caroline Duque RN Unavailable [phone] Martha White MD Unavailable +[phone] Ankita Park MD Unavailable +[phone] Ankita Park MD Unavailable +[phone] Luna Simons MD Unavailable +[phone] Nadja Hagen MD Unavailable +[phone] Batool Atkinson PhD LP Unavailable +[phone] Prisca Miller MD Unavailable +[phone] Jennyfer Steele APRN COAL SHOVELER Unavailable +[phone] Jennyfer Steele APRN COAL SHOVELER Unavailable + 3 Sadaf Apple NP Unavailable Unavailable [facility] Unavailabl e Yamel Saha PA-C Unavailable +[phone] Luna Simons MD Unavailable +[phone] Encounter Details Date Type Department Care Team (Late st Contact Info) Description 01/02/2023 MyC Medical Advice [facility] Cancer [address] [phone] Caroline Duque RN Social History Tobacco Use Types Packs/Day [...] [facility] [address] 2nd [place] [phone] Luna Simons MD [address] [place] [address] 931835 09/15/2025 10:00 AM CDT Oncology Visit [facility] [address] [phone] Luna Simons MD [address] [place] [address] [phone] documented as of this encounter Visit Diagnoses Not on filedocumented in this encounter Additional Health Concerns Infection Onset Date Last Indicated Resolved Time Rule Out COVID-19 01/24/2023 01/24/2023 01/24/2023 10:32 PM CDT Assessment Noted Time PHQ-9 Depression Total Score: 22 022 3:25 PM RELIEF COOK documented as of this encounter Care Teams Swing Ride Operator Relationship Specialty Start Date End Date Cyndie Eisenberg NP 100 [facility] [place] [address] PCP - General 09/25/19 Rodney Natarajan MD 420 [facility] 195 [place], [place] 528445 General Surgery 09/25/19 Luna Simons MD 420 [facility] 480 [place], [place] 320105 MD Hematology 09/25/19 Caroline Duque, RN Specialty Logistician Breast Oncology 09/30/19 Martha White MD 2312 S [facility] [place] [place], [place] 312904 truck technician 11/01/19 Ankita Park MD [address] [place] [phone] Assigned Behavioral Health Provider 05/03/20 06/29/23 Ankita Park MD [address] [place] [address] truck technician 06/10/20 Luna Simons MD [address] [place] [address] 480 [place] [address] Assigned Cancer Care Provider 09/12/21 01/18/24 Nadja Hagen MD [address] 6th Floor 2, [address] [place], [place] 221744 Resident Psychiatry 04/01/22 05/13/24 Batool Atkinson, PhD LP 2450 [facility] [address] [place] [address] Psychologist Licensed Mental Health 04/01/22 Prisca Miller MD 516 [facility] 295 [place] [address] Resident Neurology 02/10/23 Jennyfer Steele APRN COAL SHOVELER [facility]2 [address] [place] [address] Nurse Practitioner Psychiatry 02/23/23 Jennyfer Steele APRN COAL SHOVELER [facility] [address] [place] [address] Assigned Behavioral Health Provider 06/30/23 Sadaf Apple NP Assigned PCP 07/21/23 09/18/23 [facility] [address] [place] [address] Assigned PCP 09/19/23 Yamel Saha PA-C 420 [facility] 480 [place] [address] Assigned Cancer Care Provider 01/19/24 04/19/24 Luna Simons MD 420 [facility] 480 [place], [place] 497985 Assigned Cancer Care Provider 04/20/24 documented as of this encounter
--- OUTSIDE RECORDS SUMMARY | 2024-10-15 17:08 | XMS_ITS | Encounter Summary ---
Author Organization [facility] Address [address] [place] [address] Care Team Providers Care Regulatory Manager Name Role Phone Cyndie Eisenberg NP Primary Care Provider + Rodney Natarajan MD Unavailable [phone] Luna Simons MD Unavailable +[phone] Caroline Duque RN Unavailable [phone] Martha White MD Unavailable +[phone] Ankita Park MD Unavailable +[phone] Ankita Park MD Unavailable +[phone] Luna Simons MD Unavailable +[phone] Nadja Hagen MD Unavailable +[phone] Batool Atkinson PhD LP Unavailable +[phone] Prisca Miller MD Unavailable +[phone] Jennyfer Steele APRN ERP BUSINESS ANALYST Unavailable +[phone] Jennyfer Steele APRN ERP BUSINESS ANALYST Unavailable + 3 Sadaf Apple NP Unavailable Unavailable [facility] Unavailabl e Yamel Saha PA-C Unavailable +[phone] Luna Simons MD Unavailable +[phone] Encounter Details Date Type Department Care Team (Late st Contact Info) Description 01/02/2023 MyC Medical Advice [facility] [address] [place] [address] [phone] Nadja Hagen MD 2312 S [facility] Floor 2, [address] [place], [place] 691264 Social History Tobacco Use Types Packs/Day Years [...] Ancillary Procedure [facility] [place] [address] [place] [address] 2nd [place] [phone] Luna Simons MD [address] [place] [address] 100125 09/15/2025 10:00 AM CDT [facility] 909 [place] [address] Luna Simons MD [address] [place] [address] 956105 documented as of this encounter Visit Diagnoses Not on filedocumented in this encounter Additional Health Concerns Infection Onset Date Last Indicated Resolved Time Rule Out COVID-19 01/24/2023 01/24/2023 01/24/2023 10:32 PM CDT Assessment Noted Time PHQ-9 Depression Total Score: 22 022 3:25 PM SOFTWARE PRODUCT SPECIALIST documented as of this encounter Care Teams Regulatory Manager Relationship Specialty Start Date End Date Rafaelrafal Cyndie Ann, AMANDA [address] [place] [address] PCP - General 09/25/19 Rodney Natarajan MD 420 [facility] 195 [place], [place] 003545 General Surgery 09/25/19 Luna Simons MD 420 [facility] 480 [place], [place] 479185 Hematology 09/25/19 Caroline Duque, ASHLIE Specialty Audio/Visual Operator Breast Oncology 09/30/19 Martha White MD [facility]note 2]2 S [facility] [address] [place], [place] 086984 tensioning machine operator 11/01/19 Ankita Park MD [address] [place] [phone] Assigned Behavioral Health Provider 05/03/20 06/29/23 Ankita Park MD [address] [place] [phone] tensioning machine operator 06/10/20 Luna Simons MD 420 [facility] 480 [place], [place] 775325 Assigned Cancer Care Provider 09/12/21 01/18/24 Nadja Hagen MD 2312 [address] [facility] Floor 2, [address] [place], [place] 532[address] Resident Psychiatry 04/01/22 05/13/24 Batool Atkinson, PhD LP [address] [place], [place] 0[address] [place], [place] 532054 Psychologist Licensed Mental Health 04/01/22 Prisca Miller MD 6 [facility] 295 [place], [place] 725165 Resident Neurology 02/10/23 Jennyfer Steele APRN ERP BUSINESS ANALYST [address] [place], [place] 56[address] [place], [place] 541634 Nurse Practitioner Psychiatry 02/23/23 Jennyfer Steele APRN ERP BUSINESS ANALYST [address] [place], [place] 56[address] [place], [place] 199374 Assigned Behavioral Health Provider 06/30/23 Sadaf Apple NP Assigned PCP 07/21/23 09/18/23 [facility] [address] [place] [address] Assigned PCP 09/19/23 Yamel Saha PA-C 420 [facility] 480 [place], [place] 914085 Assigned Cancer Care Provider 01/19/24 04/19/24 Luna Simons MD 420 [facility] 480 [place], [place] 576085 Assigned Cancer Care Provider 04/20/24 documented as of this encounter
--- OUTSIDE RECORDS SUMMARY | 2024-10-15 17:08 | XMS_ITS | Encounter Summary ---
Author Organization [facility] Address [address] [place] [address] Care Team Providers Care Airborne Missions Systems Name Role Phone Cyndie Eisenberg NP Primary Care Provider + Rodney Natarajan MD Unavailable [phone] Luna Simons MD Unavailable Caroline Duque RN Unavailable [phone] Martha White MD Unavailable Pedrito Ramirez MD Unavailable [phone] Rodney Natarajan MD Unavailable +[phone] Luna Simons MD Unavailable Martha White MD Unavailable +[phone] Mio Mclean MD Unavailable +[phone] Ankita Park MD Unavailable [phone] Ankita Park MD Unavailable [phone] Mio Mclean MD Unavailable [phone] Luna Simons MD Unavailable Luna Simons MD Unavailable Jose Zaragoza NP Unavailable [phone] Mio Mclean MD Unavailable +[phone] Luna Simons MD Unavailable +[phone] Nadja Hagen MD Unavailable +[phone] Batool Atkinson PhD LP Unavailable [phone] Prisca Miller MD Unavailable +[phone] Ivette Jennyferjulieth Rodrigues APRN LAW FIRM ADMINISTRATOR Unavailable + Jennyfer Steele APRN LAW FIRM ADMINISTRATOR Unavailable + Sadaf Apple NP Unavailable Unavailable Clinic - [facility] Unavailabl e Yamel Saha PA-C Unavailable +[phone] Luna Simons MD Unavailable +[phone] Encounter Details Date Type Department Care Team (Late st Contact Info) Description 02/14/2020 MyC Medical Advice [facility] [address] [place] [address] Luna Simons MD [address] [address] Social History Tobacco Use Types [...] Description 09/15/2025 9:15 AM CDT Ancillary Procedure [facility] Imaging [address] 2nd [place] [address] Luna Simons MD 420 [facility] 480 [place], [place] 553015 09/15/2025 10:00 AM CDT Oncology Visit [facility] 909 [facility] [place] [phone] Luna Simons MD 420 [facility] 480 [place], [place] 476105 documented as of this encounter Visit Diagnoses Not on filedocumented in this encounter Additional Health Concerns Infection Onset Date Last Indicated Resolved Time Rule Out COVID-19 01/24/2023 01/24/2023 01/24/2023 10:32 PM CDT documented as of this encounter Care Teams Airborne Missions Systems Relationship Specialty Start Date End Date Cyndie Eisenberg, AMANDA [address] [place] [address] PCP - General 09/25/19 Rodney Natarajan MD 420 [facility] 195 [place], [place] 873135 General Surgery 09/25/19 Luna Simons MD 420 [facility] 480 [place], [place] 828965 Hematology 09/25/19 Caroline Duque, RN Specialty Social Sciences Chair Breast Oncology 09/30/19 Martha White MD [address] [place] [address] [address] [place], [place] 308664 private investigator surveillance 11/01/19 Pedrito Ramirez MD 6405 [facility] [address] [place], [place] 004775 Assigned Heart and Vascular Provider 03/20/20 11/07/20 Rodney Natarajan MD 420 [facility] 195 [place] [address] Assigned Surgical Provider 03/20/20 08/07/21 Luna Simons MD 420 [facility] 480 [place] [address] Assigned Cancer Care Provider 03/20/20 04/11/20 Martha White MD [address] [place] [address] [address] [place] [address] Assigned Behavioral Health Provider 03/20/20 05/02/20 Mio Mclean MD 420 [facility] 494 [place] [address] Assigned Cancer Care Provider 04/12/20 04/21/20 Ankita Park MD [address] [place] [phone] Assigned Behavioral Health Provider 05/03/20 06/29/23 Ankita Park MD [address] [place] [phone] private investigator surveillance 06/10/20 Mio Mclean MD 420 [facility] 494 [place] [address] Assigned Cancer Care Provider 05/10/20 07/25/20 Luna Simons MD 420 [facility] 480 [place] [address] Assigned Cancer Care Provider 04/22/20 05/09/20 Luna Simons MD 420 [facility] 480 [place] [address] Assigned Cancer Care Provider 07/26/20 06/26/21 Jose Zaragoza, LOSS PREVENTION LEAD 6405 [facility] [address] Assigned Heart and Vascular Provider 11/08/20 02/04/22 Mio Mcelan MD 420 [facility] 494 [place] [address] Assigned Cancer Care Provider 06/27/21 09/11/21 Luna Simons MD 420 [facility] 480 [place], [place] 897135 Assigned Cancer Care Provider 09/12/21 01/18/24 Nadja Hagen MD 2312 S [facility] Floor 2, [address] [place], [place] 8[address]954 Resident Psychiatry 04/01/22 05/13/24 Batool Atkinson, PhD LP 2450 [facility] F282 [place], [place] 784814 Psychologist Licensed Mental Health 04/01/22 Prisca Miller MD 516 [facility] 295 [place], [place] 0[address]355 Resident Neurology 02/10/23 Jennyfer Steele APRN LAW FIRM ADMINISTRATOR [address] [facility] [place] [address] [place], [place] 0[address]314 Nurse Practitioner Psychiatry 02/23/23 Jennyfer Steele APRN LAW FIRM ADMINISTRATOR [address] [facility] [place] [address] [place], [place] 592614 Assigned Behavioral Health Provider 06/30/23 Sadaf Apple NP Assigned PCP 07/21/23 09/18/23 [facility] [address] [place] [address] Assigned PCP 09/19/23 Yamel Saha PA-C 420 [facility] 480 [place] [address] Assigned Cancer Care Provider 01/19/24 04/19/24 Luna Simons MD 420 [facility] 480 [place] [address] Assigned Cancer Care Provider 04/20/24 documented as of this encounter
--- OUTSIDE RECORDS SUMMARY | 2024-10-15 17:08 | XMS_ITS | Encounter Summary ---
Author Organization [facility] Address [address] [place] [address] Care Team Providers Care Vat House Laborer Name Role Phone Cyndie Eisenberg NP Primary Care Provider + Rodney Natarajan MD Unavailable [phone] Luna Simons MD Unavailable +[phone] Caroline Duque RN Unavailable [phone] Martha White MD Unavailable [phone] Rodney Natarajan MD Unavailable +[phone] Ankita Park MD Unavailable [phone] Ankita Park MD Unavailable [phone] Luna Simons MD Unavailable +[phone] Jose Zaragoza NP Unavailable Mio Mclean MD Unavailable +[phone] Luna Simons MD Unavailable Nadja Hagen MD Unavailable [phone] Batool Atkinson PhD LP Unavailable [phone] Prisca Miller MD Unavailable [phone] Jennyfer Steele APRN STRAP MAKER Unavailable +[phone] Jennyfer Steele APRN STRAP MAKER Unavailable + [phone] Sadaf Apple NP Unavailable Unavailable Clinic - [facility] Unavailabl e Yamel Saha PA-C Unavailable Luna Simons MD Unavailable Encounter Details Date Type Department Care Team (Late Contact Info) Description 03/29/2021 MyC Medical Advice [facility] [place] [id number] [phone] [facility] Social History Tobacco Use Types Packs/Day Years [...] [facility] [address] 2nd [place] [address] Luna Simons MD [address] [place] [address] 401005 09/15/2025 10:00 AM CDT Oncology Visit [facility] [address] [place] [address] Luna Simons MD [address] [place] [address] 480 [place], [place] 543515 documented as of this encounter Visit Diagnoses Not on filedocumented in this encounter Additional Health Concerns Infection Onset Date Last Indicated Resolved Time Rule Out COVID-19 01/24/2023 01/24/2023 01/24/2023 10:32 PM CDT documented as of this encounter Care Teams Vat House Laborer Relationship Specialty Start Date End Date Cyndie Eisenberg NP [address] [place] [address] PCP - General 09/25/19 Rodney Natarajan MD 420 [facility] 195 [place], [place] 239125 General Surgery 09/25/19 Luna Simons MD 420 [facility] 480 [place], [place] 124335 Hematology 09/25/19 Caroline Duque, ASHLIE Specialty Manufacturing Maintenance Technician Breast Oncology 09/30/19 Martha White MD [address] [place] [address] [address] [place], [place] 493934 data virtualization consultant 11/01/19 Rodney Natarajan MD 420 [facility] 195 [place], [place] 496775 Assigned Surgical Provider 03/20/20 08/07/21 Ankita Park MD [facility] [address] [address] Assigned Behavioral Health Provider 05/03/20 06/29/23 Ankita Park MD [facility] [address] [phone] data virtualization consultant 06/10/20 Luna Simons MD 420 [facility] 480 [place], [place] 687815 Assigned Cancer Care Provider 07/26/20 06/26/21 Jose Zaragoza, NICK SETTER 6405 [facility] [place] 254[address] Assigned Heart and Vascular Provider 11/08/20 02/04/22 Mio Mclean MD 420 [facility] 494 [place], [place] 862545 Assigned Cancer Care Provider 06/27/21 09/11/21 Luna Simons MD 420 [facility] 480 [place], [place] 298745 Assigned Cancer Care Provider 09/12/21 01/18/24 Nadja Hagen MD [facility] S [facility] Floor 2, [address] [place], [place] 9[address] Resident Psychiatry 04/01/22 05/13/24 Batool Atkinson, PhD LP [facility]0 [facility] [address] [place], [place] 264434 Psychologist Licensed Mental Health 04/01/22 Prisca Miller MD 516 [facility] 295 [place], [place] 927725 Resident Neurology 02/10/23 Jennyfer Steele, VENEER STOCK LAYER STRAP MAKER [address] [place] [address] [place] [address] Nurse Practitioner Psychiatry 02/23/23 Jennyfer Steele APRN [facility] [address] [place] [address] Assigned Behavioral Health Provider 06/30/23 Sadaf Apple NP Assigned PCP 07/21/23 09/18/23 [facility] [address] [place] [address] Assigned PCP 09/19/23 Yamel Saha PA-C 420 [facility] 480 [place], [place] 522695 Assigned Cancer Care Provider 01/19/24 04/19/24 Luna Simons MD 420 [facility] 480 [place], [place] 06[address]55 Assigned Cancer Care Provider 04/20/24 documented as of this encounter
--- OUTSIDE RECORDS SUMMARY | 2024-10-15 17:08 | XMS_ITS | Encounter Summary ---
Author Organization [place] Address [address] [place] [address] Care Team Providers Care Core Drill Operator Name Role Phone Cyndie Eisenberg NP Primary Care Provider + Rodney Natarajan MD Unavailable [phone] Luna Simons MD Unavailable Caroline Duque RN Unavailable +[phone] Martha White MD Unavailable Pedrito Ramirez MD Unavailable +[phone] Rodney Natarajan MD Unavailable +[phone] Luna Simons MD Unavailable Martha White MD Unavailable Mio Mclean MD Unavailable +[phone] Ankita Park MD Unavailable +[phone] Ankita Park MD Unavailable +[phone] Mio Mclean MD Unavailable +[phone] Luna Simons MD Unavailable +[phone] Luna Simons MD Unavailable +[phone] Jose Zaragoza NP Unavailable [phone] Mio Mclean MD Unavailable Luna Simons MD Unavailable +[phone] Nadja Hagen MD Unavailable +[phone] Batool Atkinson PhD LP Unavailable +[phone] Prisca Miller MD Unavailable +[phone] Ramin Steelen Ravi KEVIN HISTORY DEPARTMENT CHAIR Unavailable + IvetteJennyfer vaughan APRN HISTORY DEPARTMENT CHAIR Unavailable + Sadaf Apple NP Unavailable Unavailable [facility] Unavailabl e Yamel Saha PA-C Unavailable +[phone] Luna Simons MD Unavailable +[phone] Encounter Details Date Type Department Care Team (Late st Contact Info) Description 01/28/2020 MyC Medical Advice [facility] [address] [address] Rodney Natarajan MD [address] [address] Social History Tobacco Use Types [...] have Coronavirus / COVID-19? No / Unsure 01/31/2020 10:57 AM CDT documented as of this encounter Plan of Treatment Upcoming Encounters Date Type Department Care Team (Late st Contact Info) Description 09/15/2025 9:15 AM CDT Ancillary Procedure [facility] [place] [facility] [address] 2nd [place] [address] Luna Simons MD 420 [facility] 480 [place], [place] [address] 09/15/2025 10:00 AM CDT Oncology Visit [facility] 909 [facility] [place] [phone] Luna Simons MD 420 [facility] 480 [place], [place] 221475 documented as of this encounter Visit Diagnoses Not on filedocumented in this encounter Additional Health Concerns Infection Onset Date Last Indicated Resolved Time Rule Out COVID-19 01/24/2023 01/24/2023 01/24/2023 10:32 PM CDT documented as of this encounter Care Teams Core Drill Operator Relationship Specialty Start Date End Date Cyndie Eisenberg, AMANDA [address] [place] [address] PCP - General 09/25/19 Rodney Natarajan MD 420 [facility] 195 [place], [place] 453085 General Surgery 09/25/19 Luna Simons MD 420 [facility] 480 [place], [place] [address] Hematology 09/25/19 Caroline Duque, RN Specialty Reproduction Production Manager Breast Oncology 09/30/19 Martha White MD [address] [place] [address] [address] [place], [place] 10[address]74 slat twister 11/01/19 Pedrito Ramirez MD 6405 [facility] [address]200 [place], [place] 835545 Assigned Heart and Vascular Provider 03/20/20 11/07/20 Rodney Natarajan MD [address] [place] [facility] 195 [place], [place] 621285 Assigned Surgical Provider 03/20/20 08/07/21 Luna Simons MD 420 [facility] 480 [place] [address] Assigned Cancer Care Provider 03/20/20 04/11/20 Martha White MD [address] [place] [address] [address] [place], [place] 469164 Assigned Behavioral Health Provider 03/20/20 05/02/20 Mio Mclean MD 420 [facility] 494 [place] [address] Assigned Cancer Care Provider 04/12/20 04/21/20 Ankita Park MD [address] [place] [address] Assigned Behavioral Health Provider 05/03/20 06/29/23 Ankita Park MD [address] [place] [phone] slat twister 06/10/20 Mio Mclean MD 420 [facility] 494 [place] [address] Assigned Cancer Care Provider 05/10/20 07/25/20 Luna Simons MD 420 [facility] 480 [place] [address] Assigned Cancer Care Provider 04/22/20 05/09/20 Luna Simons MD 420 [facility] 480 [place] [address] Assigned Cancer Care Provider 07/26/20 06/26/21 Jose Zaragoza, OPERATIONS EXECUTIVE 6405 [place] [address] Assigned Heart and Vascular Provider 11/08/20 02/04/22 Mio Mclean MD 420 [facility] 494 [place] [address] Assigned Cancer Care Provider 06/27/21 09/11/21 Luna Simons MD 420 [facility] 480 [place] [address] Assigned Cancer Care Provider 09/12/21 01/18/24 Nadja Hagen MD [address] 2, [address] [place], [place] 5325[address] Resident Psychiatry 04/01/22 05/13/24 Batool Atkinson, PhD LP 2450 [facility] F282 [place], [place] 290994 Psychologist Licensed Mental Health 04/01/22 Prisca Miller MD 516 [facility] 295 [place] [address] Resident Neurology 02/10/23 Jennyfer Steele APRN HISTORY DEPARTMENT CHAIR 2312 S [facility] F275 [place] [address] Nurse Practitioner Psychiatry 02/23/23 Jennyfer Steele APRN HISTORY DEPARTMENT CHAIR 2312 S [facility] [address] [place] [address] Assigned Behavioral Health Provider 06/30/23 Sadaf Apple NP Assigned PCP 07/21/23 09/18/23 [facility] [id number] [place] [address] Assigned PCP 09/19/23 Yamel Saha PA-C 420 [facility] 480 [place], [place] 563035 Assigned Cancer Care Provider 01/19/24 04/19/24 Luna Simons MD 420 [facility] 480 [place], [place] 727895 Assigned Cancer Care Provider 04/20/24 documented as of this encounter
--- OUTSIDE RECORDS SUMMARY | 2024-10-15 17:08 | XMS_ITS | Encounter Summary ---
Author Organization [place] Address [address] [place] [address] Care Team Providers Care Twist Maker Name Role Phone Cyndie Eisenberg NP Primary Care Provider + Rodney Natarajan MD Unavailable [phone] Luna Simons MD Unavailable [phone] Caroline Duque RN Unavailable [phone] Martha White MD Unavailable [phone] Ankita Park MD Unavailable [phone] Ankita Park MD Unavailable +[phone] Luna Simons MD Unavailable +[phone] Nadja Hagen MD Unavailable +[phone] Batool Atkinson PhD LP Unavailable +[phone] Prisca Miller MD Unavailable [phone] Jennyfer Steele APRN SHIPFITTERS SUPERVISOR Unavailable +[phone] Jennyfer Steele APRN SHIPFITTERS SUPERVISOR Unavailable + [phone] Sadaf Apple NP Unavailable Unavailable [facility] Unavailabl e Yamel Saha PA-C Unavailable [phone] Luna Simons MD Unavailable [phone] Encounter Details Date Type Department Care Team (Late st Contact Info) Description 02/17/2023 MyC Medical Advice [facility] [place] [id number] [address] [phone] Talita Bradshaw Social History Tobacco Use Types [...] [facility] Imaging [address] 2nd [place] [phone] Luna Simons MD [address] [place] [address] 09/15/2025 10:00 AM CDT Oncology Visit [facility] [address] [place] [address] Luna Simons MD [address] [place] [address] 238205 documented as of this encounter Visit Diagnoses Not on filedocumented in this encounter Additional Health Concerns Assessment Noted Time PHQ-9 Depression Total Score: 22 022 3:25 PM TRANSITION 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 documented as of this encounter Care Teams Twist Maker Relationship Specialty Start Date End Date Cyndie Eisenberg NP [address] [place] [address] PCP - General 09/25/19 Rodney Natarajan MD [address] [place] [address] [facility] 195 [place], [place] 415085 MD General Surgery 09/25/19 Luna Simons MD [address] [place] [facility] 480 [place], [place] 785245 Hematology 09/25/19 Caroline Duque, ASHLIE Specialty Head Batcher Breast Oncology 09/30/19 Martha White MD [address] [place] [address] [place], [place] 146194 road worker 11/01/19 Ankita Park MD [address] [place] [address] Assigned Behavioral Health Provider 05/03/20 06/29/23 Ankita Park MD [address] [place] [phone] road worker 06/10/20 Luna Simons MD [address] [place] [facility] 480 [place], [place] 612445 Assigned Cancer Care Provider 09/12/21 01/18/24 Nadja Hagen MD [address] Floor 2, [address] [place], [place] 35[address] Resident Psychiatry 04/01/22 05/13/24 Batool Atkinson, PhD LP [address] [place] [address] Psychologist Licensed Mental Health 04/01/22 Prisca Miller MD 6 [facility] 295 [place] [address] Resident Neurology 02/10/23 Jennyfer Steele APRN SHIPFITTERS SUPERVISOR [address] [place] [address] Nurse Practitioner Psychiatry 02/23/23 Jennyfer Steele APRN SHIPFITTERS SUPERVISOR [address] [place] [address] Assigned Behavioral Health Provider 06/30/23 Sadaf Apple NP Assigned PCP 07/21/23 09/18/23 [facility] [address] [place] [address] Assigned PCP 09/19/23 Yamel Saha PA-C 420 [facility] 480 [place], [place] 517585 Assigned Cancer Care Provider 01/19/24 04/19/24 Luna Simons MD 420 [facility] 480 [place], [place] 802265 Assigned Cancer Care Provider 04/20/24 documented as of this encounter
--- OUTSIDE RECORDS SUMMARY | 2024-10-15 17:08 | XMS_ITS | Encounter Summary ---
Author Organization [facility] Address [address] [place] [address] Care Team Providers Care Development Chemist Name Role Phone Cyndie Eisenberg NP Primary Care Provider + Rodney Natarajan MD Unavailable [phone] Luna Simons MD Unavailable Caroline Duque RN Unavailable [phone] Martha White MD Unavailable [phone] Rodney Natarajan MD Unavailable [phone] Ankita Park MD Unavailable [phone] Ankita Park MD Unavailable [phone] Luna Simons MD Unavailable Jose Zaragoza NP Unavailable Mio Mclean MD Unavailable [phone] Luna Simons MD Unavailable [phone] Nadja Hagen MD Unavailable [phone] Batool Atkinson PhD LP Unavailable [phone] Prisca Miller MD Unavailable [phone] Jennyfer Steele APRN CARBIDER Unavailable +[phone] Jennyfer Steele APRN CARBIDER Unavailable + [phone] Sadaf Apple NP Unavailable Unavailable [facility] - [facility] Unavailabl e Yamel Saha PA-C Unavailable [phone] Luna Simons MD Unavailable Encounter Details Date Type Department Care Team (Late Contact Info) Description 06/24/2021 MyC Medical Advice [facility] Cancer [facility] 909 [place] [address] Gabrielle Perkins PA-C [address] [place] [address] [place] [address] Social History Tobacco Use Types Packs/Day [...] have Coronavirus / COVID-19? No / Unsure 06/24/2021 8:38 AM COOK HELPER documented as of this encounter Plan of Treatment Upcoming Encounters Date Type Department Care Team (Late Contact Info) Description 09/15/2025 9:15 AM CDT Ancillary Procedure [facility] Breast Center Imaging [place] 909 [facility] 2nd [place] [address] Luna Simons MD [address] [place] [address] 480 [place] [address] 09/15/2025 10:00 AM CDT Oncology Visit [facility] 909 [place] [address] Luna Simons MD [address] [place] [address] [facility] [address] [place] [address] documented as of this encounter Visit Diagnoses Not on filedocumented in this encounter Additional Health Concerns Infection Onset Date Last Indicated Resolved Time Rule Out COVID-19 01/24/2023 01/24/2023 01/24/2023 10:32 PM CDT documented as of this encounter Care Teams Development Chemist Relationship Specialty Start Date End Date Cyndie Eisenberg NP [address] [place] [address] PCP - General 09/25/19 Rodney Natarajan MD 420 [facility] 195 [place] [address] General Surgery 09/25/19 Luna Simons MD 420 [facility] 480 [place] [address] Hematology 09/25/19 Caroline Duque, RN Specialty Recruiting Intern Breast Oncology 09/30/19 Martha White MD [address] [place] [address] [address] [place] [address] lone lead lineman 11/01/19 Rodney Natarajan MD 420 [facility] 195 [place] [address] Assigned Surgical Provider 03/20/20 08/07/21 [place] [address] [place] [phone] Assigned Behavioral Health Provider 05/03/20 06/29/23 Ankita Park MD [address] [place] [address] lone lead lineman 06/10/20 Luna Simons MD 420 [facility] 480 [place] [address] Assigned Cancer Care Provider 07/26/20 06/26/21 Jose Zaragoza, HEAD OF SALES [address] [facility] [address] [address] [place], [place] [address] Assigned Heart and Vascular Provider 11/08/20 02/04/22 Mio Mclean MD 420 [facility] 494 [place], [place] 072885 Assigned Cancer Care Provider 06/27/21 09/11/21 Luna Simons MD 420 [facility] 480 [place], [place] 879845 Assigned Cancer Care Provider 09/12/21 01/18/24 Nadja Hagen MD [address] 2, [address] [place], [place] [address] Resident Psychiatry 04/01/22 05/13/24 Batool Atkinson, PhD LP 2450 [facility] F282 [place], [place] 149054 Psychologist Licensed Mental Health 04/01/22 Prisca Miller MD 516 [facility] 295 [place], [place] 6946[address] Resident Neurology 02/10/23 Jennyfer Steele APRN CARBIDER 2312 S [facility] F275 [place], [place] 270[address] Nurse Practitioner Psychiatry 02/23/23 Jennyfer Steele APRN CARBIDER 2312 [address] [facility] F275 [place], [place] 431694 Assigned Behavioral Health Provider 06/30/23 Sadaf Apple NP Assigned PCP 07/21/23 09/18/23 [facility] [address] [place] [address] Assigned PCP 09/19/23 Yamel Saha PA-C [address] [place] [address] [id number] Assigned Cancer Care Provider 01/19/24 04/19/24 Luna Simons MD [address] [place] [address] [id number] Assigned Cancer Care Provider 04/20/24 documented as of this encounter
--- OUTSIDE RECORDS SUMMARY | 2024-10-15 17:08 | XMS_ITS | Encounter Summary ---
Author Organization [place] Address [address] [place] [address] Care Team Providers Care Door Serviceman Name Role Phone Cyndie Eisenberg NP Primary Care Provider + Rodney Natarajan MD Unavailable [phone] Luna Simons MD Unavailable Caroline Duque RN Unavailable [phone] Martha White MD Unavailable [phone] Pedrito Ramirez MD Unavailable +[phone] Rodney Natarajan MD Unavailable +[phone] Luna Simons MD Unavailable [phone] Martha White MD Unavailable [phone] Mio Mclean MD Unavailable [phone] Ankita Park MD Unavailable +[phone] Ankita Park MD Unavailable [phone] Mio Mclean MD Unavailable [phone] Luna Simons MD Unavailable Luna Simons MD Unavailable Jose Zaragoza NP Unavailable Mio Mclean MD Unavailable [phone] Luna Simons MD Unavailable +[phone] Nadja Hagen MD Unavailable +[phone] Batool Atkinson PhD LP Unavailable +[phone] Prisca Miller MD Unavailable +[phone] Ramin Steelen Ravi VINYL FLOORING INSTALLER FIELD TECHNICAL ASSISTANT Unavailable + IvetteJennyfer vaughan APRN FIELD TECHNICAL ASSISTANT Unavailable + Sadaf Apple NP Unavailable Unavailable Clinic - [facility] Unavailabl e Yamel Saha PA-C Unavailable [phone] Luna Simons MD Unavailable +[phone] Encounter Details Date Type Department Care Team (Late st Contact Info) Description 11/14/2019 MyC Medical Advice [facility] Cancer [address] [address] [facility] Social History Tobacco Use Types Packs/Day Years [...] Description 09/15/2025 9:15 AM CDT Ancillary Procedure [facility] Breast Center Imaging [address] 2nd [place] [address] Luna Simons MD [address] [place] [address] 09/15/2025 10:00 AM CDT Oncology Visit [facility] Cancer [address] [place] [phone] Luna Simons MD 420 [facility] 480 [place], [place] 9[address]255 documented as of this encounter Visit Diagnoses Not on filedocumented in this encounter Additional Health Concerns Infection Onset Date Last Indicated Resolved Time Rule Out COVID-19 01/24/2023 01/24/2023 01/24/2023 10:32 PM CDT documented as of this encounter Care Teams Door Serviceman Relationship Specialty Start Date End Date Cyndie Eisenberg, WINDOWS SERVER ENGINEER [address] [place] [address] PCP - General 09/25/19 Rodney Natarajan MD [address] [place] [address] 533655 General Surgery 09/25/19 Luna Simons MD [address] [place] [address] 966035 Hematology 09/25/19 Caroline Duque, RN Specialty Reporting Developer Breast Oncology 09/30/19 Martha White MD [facility] [place] [address] [address] [place] [address] hopper attendant 11/01/19 Pedrito Ramirez MD 6405 [facility] [address]200 [place], [place] [address] Assigned Heart and Vascular Provider 03/20/20 11/07/20 Rodney Natarajan MD [address] [place] [address] 195 [place], [place] 570655 Assigned Surgical Provider 03/20/20 08/07/21 Luna Simons MD 420 [facility] 480 [place] [address] Assigned Cancer Care Provider 03/20/20 04/11/20 Martha White MD [facility] [address] [place], [place] [address] Assigned Behavioral Health Provider 03/20/20 05/02/20 Mio Mclean MD [address] [address] Assigned Cancer Care Provider 04/12/20 04/21/20 Ankita Park MD [address] [place] [phone] Assigned Behavioral Health Provider 05/03/20 06/29/23 Ankita Park MD [address] [place] [phone] hopper attendant 06/10/20 Mio Mclean MD [address] [address] Assigned Cancer Care Provider 05/10/20 07/25/20 Luna Simons MD 420 [facility] 480 [place] [address] Assigned Cancer Care Provider 04/22/20 05/09/20 Luna Simons MD 420 [facility] 480 [place] [address] Assigned Cancer Care Provider 07/26/20 06/26/21 Jose Zaragoza, WINDOWS SERVER ENGINEER 6405 [facility] [place] [address] Assigned Heart and Vascular Provider 11/08/20 02/04/22 Mio Mclean MD 420 [facility] 494 [place] [address] Assigned Cancer Care Provider 06/27/21 09/11/21 Luna Simons MD 420 [facility] 480 [place] [address] Assigned Cancer Care Provider 09/12/21 01/18/24 Nadja Hagen MD [address] [place] [address] Floor 2, [address] [place], [place] [address]134 Resident Psychiatry 04/01/22 05/13/24 Batool Atkinson, PhD LP 2450 [facility] F282 [place], [place] 552854 Psychologist Licensed Mental Health 04/01/22 Prisca Miller MD 6 [facility] 295 [place], [place] 142875 Resident Neurology 02/10/23 Jennyfer Steele APRN FIELD TECHNICAL ASSISTANT [facility] [place] [address] [place] [address] Nurse Practitioner Psychiatry 02/23/23 Jennyfer Steele APRN FIELD TECHNICAL ASSISTANT [facility] S [facility] F275 [place] [address] Assigned Behavioral Health Provider 06/30/23 Sadaf Apple NP Assigned PCP 07/21/23 09/18/23 [facility] [address] [place] [address] Assigned PCP 09/19/23 Yamel Saha PA-C [address] 633[address] Assigned Cancer Care Provider 01/19/24 04/19/24 Luna Simons MD [address] [address] Assigned Cancer Care Provider 04/20/24 documented as of this encounter
--- OUTSIDE RECORDS SUMMARY | 2024-10-15 17:08 | XMS_ITS | Encounter Summary ---
Author Organization [place] Address [address] [place] [address] Care Team Providers Care Coal Mill Operator Name Role Phone Cyndie Eisenberg NP Primary Care Provider + Rodney Natarajan MD Unavailable [phone] Luna Simons MD Unavailable [phone] Caroline Duque RN Unavailable [phone] Martha White MD Unavailable [phone] Pedrito Ramirez MD Unavailable +[phone] Rodney Natarajan MD Unavailable +[phone] Luna Simons MD Unavailable Martha White MD Unavailable Mio Mclean MD Unavailable +[phone] Ankita Park MD Unavailable +[phone] Ankita Park MD Unavailable +[phone] Mio Mclean MD Unavailable [phone] Luna Simons MD Unavailable Luna Simons MD Unavailable Jose Zaragoza NP Unavailable +[phone] Mio Mclean MD Unavailable +[phone] Luna Simons MD Unavailable +[phone] Nadja Hagen MD Unavailable +[phone] Batool Atkinson PhD LP Unavailable +[phone] Prisca Miller MD Unavailable +[phone] Jennyfer Steele APRN FURNITURE SALES CONSULTANT Unavailable + Jennyfer Steele APRN FURNITURE SALES CONSULTANT Unavailable + Sadaf Apple NP Unavailable Unavailable Clinic - [facility] Unavailabl e Yamel Saha PA-C Unavailable +[phone] Luna Simons MD Unavailable +[phone] Encounter Details Date Type Department Care Team (Late st Contact Info) Description 02/05/2020 MyC Medical Advice [facility] [place] [id number] [address] [address] Ankita Park MD [address] [address] Anxiety (Primary Dx) Social History Tobacco [...] AM CDT documented as of this encounter Miscellaneous Notes * Telephone Encounter - Alan Nino RN - 02/10/2020 9:06 AM CDT Next appointment 03/31. Piecer e-prescribed 90-day supply to [facility] ([phone]). Qty 90, refills 0. Routed message to pt via [employer]. documented in this encounter Plan of Treatment Upcoming Encounters Date Type Department Care Team (Late st Contact Info) Description 09/15/2025 9:15 AM CDT Ancillary Procedure [facility] Imaging [address] 2nd [place] [phone] Luna Simons MD 420 [facility] 480 [place], [place] 624625 09/15/2025 10:00 AM CDT Oncology Visit [facility] [address] [place] [address] Luna Simons MD [address] [place] [address] [phone] documented as of this encounter Visit Diagnoses Diagnosis Anxiety- Primary Anxiety state, unspecified documented in this encounter Additional Health Concerns Infection Onset Date Last Indicated Resolved Time Rule Out COVID-19 01/24/2023 01/24/2023 01/24/2023 10:32 PM CDT documented as of this encounter Care Teams Coal Mill Operator Relationship Specialty Start Date End Date Cyndie Eisenberg NP [address] [place] [address] PCP - General 09/25/19 Rodney Natarajan MD [address] [place] [address] 195 [place], [place] 484355 General Surgery 09/25/19 Luna Simons MD [address] [place] [address] 480 [place], [place] 567595 Hematology 09/25/19 Caroline Duque, RN Specialty Manager Php Breast Oncology 09/30/19 Martha White MD [address] [place] [address] [address] [place] [address] store management trainee 11/01/19 Pedrito Ramirez MD 6405 [facility] [address] [place], [place] 602505 Assigned Heart and Vascular Provider 03/20/20 11/07/20 Rodney Natarajan MD 420 [facility] 195 [place], [place] 202485 Assigned Surgical Provider 03/20/20 08/07/21 Luna Simons MD 420 [facility] 480 [place], [place] 037275 Assigned Cancer Care Provider 03/20/20 04/11/20 Martha White MD [address] [place] [address] 250534 Assigned Behavioral Health Provider 03/20/20 05/02/20 Mio Mclean MD 420 [facility] 494 [place], [place] 949565 Assigned Cancer Care Provider 04/12/20 04/21/20 Ankita Park MD 2450 [facility] [place] [phone] Assigned Behavioral Health Provider 05/03/20 06/29/23 Ankita Park MD [address] [address] store management trainee 06/10/20 Mio Mclean MD 420 [facility] 494 [place] [address] Assigned Cancer Care Provider 05/10/20 07/25/20 Luna Simons MD 420 [facility] 480 [place] [address] Assigned Cancer Care Provider 04/22/20 05/09/20 Luna Simons MD 420 [facility] 480 [place], [place] 385005 Assigned Cancer Care Provider 07/26/20 06/26/21 Jose Zaragoza CP BLEACHER OPERATOR 6405 [facility] [place], [place] 654695 Assigned Heart and Vascular Provider 11/08/20 02/04/22 Mio Mclean MD 420 [facility] 494 [place] [address] Assigned Cancer Care Provider 06/27/21 09/11/21 Luna Simons MD 420 [facility] 480 [place], [place] 119795 Assigned Cancer Care Provider 09/12/21 01/18/24 Nadja Hagen MD [address] 2, [address] [place], [place] 754214 Resident Psychiatry 04/01/22 05/13/24 Batool Atkinson, PhD LP 2450 [facility] [address]282 [place] [address] Psychologist Licensed Mental Health 04/01/22 Prisca Miller MD 516 [facility] 295 [place], [place] 063235 Resident Neurology 02/10/23 Jennyfer Steele APRN FURNITURE SALES CONSULTANT [address] [place] [address] [address] [place] [address] Nurse Practitioner Psychiatry 02/23/23 Jennyfer Steele APRN FURNITURE SALES CONSULTANT [facility] [address] [place] [address] Assigned Behavioral Health Provider 06/30/23 Sadaf Apple NP Assigned PCP 07/21/23 09/18/23 [facility] [id number] [place] [address] Assigned PCP 09/19/23 Yamel Saha PA-C 420 [facility] 480 [place], [place] 394385 Assigned Cancer Care Provider 01/19/24 04/19/24 Luna Simons MD 420 [facility] 480 [place] [address] Assigned Cancer Care Provider 04/20/24 documented as of this encounter
--- OUTSIDE RECORDS SUMMARY | 2024-10-15 17:08 | XMS_ITS | Encounter Summary ---
Author Organization [place] Address [address] [place] [address] Care Team Providers Care Application Security Developer Name Role Phone Cyndie Eisenberg NP Primary Care Provider + Rodney Natarajan MD Unavailable [phone] Luna Simons MD Unavailable Caroline Duque RN Unavailable [phone] Martha White MD Unavailable Pedrito Ramirez MD Unavailable [phone] Rodney Natarajan MD Unavailable [phone] Ankita Park MD Unavailable [phone] Ankita Park MD Unavailable [phone] Luna Simons MD Unavailable Jose Zaragoza NP Unavailable [phone] Mio Mclean MD Unavailable [phone] Luna Simons MD Unavailable Nadja Hagen MD Unavailable [phone] Batool Atkinson PhD LP Unavailable [phone] Prisca Miller MD Unavailable Jennyfer Steele APRN CLOUD SOFTWARE ENGINEER Unavailable +- Jennyfer Steele SECTION FOREST FIRE WARDEN CLOUD SOFTWARE ENGINEER Unavailable + Sadaf Apple NP Unavailable Unavailable Clinic - [facility] Unavailabl e Yamel Saha PA-C Unavailable Luna Simons MD Unavailable Encounter Details Date Type Department Care Team (Late Contact Info) Description 09/12/[address] [facility] Cancer [address] [address] Talita Bradshaw Social History Tobacco [...] Procedure [facility] Breast [facility] Imaging [address] 2nd [place] [address] Luna Simons MD [address] [place] [address] 09/15/2025 10:00 AM CDT Oncology Visit [facility] Cancer [address] [address] Luna Simons MD [address] [place] [address] documented as of this encounter Visit Diagnoses Not on filedocumented in this encounter Additional Health Concerns Infection Onset Date Last Indicated Resolved Time Rule Out COVID-19 01/24/2023 01/24/2023 01/24/2023 10:32 PM CDT documented as of this encounter Care Teams Application Security Developer Relationship Specialty Start Date End Date Cyndie Eisenberg NP [address] [place] [address] PCP - General 09/25/19 Rodney Natarajan MD 420 [facility] 195 [place], [place] 809715 General Surgery 09/25/19 Luna Simons MD 420 [facility] 480 [place], [place] 514205 Hematology 09/25/19 Caroline Duque, RN Specialty Animal Caregiver Breast Oncology 09/30/19 Martha White MD [address] [place] [address] [address] [place], [place] 364274 inhalation therapist 11/01/19 Pedrito Ramirez MD 6405 [facility] [address] [place] [address] Assigned Heart and Vascular Provider 03/20/20 11/07/20 Rodney Natarajan MD 420 [facility] 195 [place], [place] 018655 Assigned Surgical Provider 03/20/20 08/07/21 Ankita Park MD [facility] [place] [phone] Assigned Behavioral Health Provider 05/03/20 06/29/23 Ankita Park MD 2450 [facility] [address] [address] inhalation therapist 06/10/20 Luna Simons MD 420 [facility] 480 [place], [place] 163925 Assigned Cancer Care Provider 07/26/20 06/26/21 Jose Zaragoza NP 6405 [facility] [place] [address] Assigned Heart and Vascular Provider 11/08/20 02/04/22 Mio Mclean MD 420 [facility] 494 [place], [place] 431835 Assigned Cancer Care Provider 06/27/21 09/11/21 Luna Simons MD 420 [facility] 480 [place] [address] Assigned Cancer Care Provider 09/12/21 01/18/24 Nadja Hagen MD [address] 2, [address] [place], [place] [address]874 Resident Psychiatry 04/01/22 05/13/24 Batool Atkinson, PhD LP [address] [place] [address] [address] [place], [place] 064274 Psychologist Licensed Mental Health 04/01/22 Prisca Miller MD 516 [facility] 295 [place] [address] Resident Neurology 02/10/23 Jennyfer Steele APRN CLOUD SOFTWARE ENGINEER [address] [place] [address] [address] [place] [address] Nurse Practitioner Psychiatry 02/23/23 Jennyfer Steele APRN CLOUD SOFTWARE ENGINEER [address] [place] [address] [address]275 [place] [address] Assigned Behavioral Health Provider 06/30/23 Sadaf Apple NP Assigned PCP 07/21/23 09/18/23 [facility] [address] [place] [address] Assigned PCP 09/19/23 Yaeml Saha PA-C 420 [facility] 480 [place], [place] 122125 Assigned Cancer Care Provider 01/19/24 04/19/24 Luna Simons MD 420 [facility] 480 [place], [place] 225745 Assigned Cancer Care Provider 04/20/24 documented as of this encounter
--- OUTSIDE RECORDS SUMMARY | 2024-10-15 17:08 | XMS_ITS | Encounter Summary ---
Author Organization [place] Address [address] [place] [address] Care Team Providers Care Boat Driver Name Role Phone Cyndie Eisenberg NP Primary Care Provider + Rodney Natarajan MD Unavailable Luna Simons MD Unavailable Caroline Duque RN Unavailable [phone] Martha White MD Unavailable [phone] Rodney Natarajan MD Unavailable [phone] Ankita Park MD Unavailable [phone] Ankita Park MD Unavailable [phone] Luna Simons MD Unavailable Jose Zaragoza NP Unavailable Mio Mclean MD Unavailable [phone] Luna Simons MD Unavailable [phone] Nadja Hagen MD Unavailable [phone] Batool Atkinson PhD LP Unavailable [phone] Prisca Miller MD Unavailable [phone] Jennyfer Steele APRN SENIOR PARALEGAL Unavailable +[phone] Jennyfer Steele APRN SENIOR PARALEGAL Unavailable + [phone] Sadaf Apple NP Unavailable Unavailable Clinic - [facility] Unavailabl e Yamel Saha PA-C Unavailable Luna Simons MD Unavailable [phone] Encounter Details Date Type Department Care Team (Late st Contact Info) Description 02/26/2021 MyC Medical Advice [facility] Cancer [address] [phone] Talita Bradshaw Social History Tobacco Use Types [...] Description 09/15/2025 9:15 AM CDT Ancillary Procedure [facility] Breast Center Imaging [address] 2nd [place] [phone] Luna Simons MD [address] [place] [address] 402815 09/15/2025 10:00 AM CDT Oncology Visit [facility] Cancer [address] [phone] Luna Simnos MD [address] [place] [address] 580975 documented as of this encounter Visit Diagnoses Not on filedocumented in this encounter Additional Health Concerns Infection Onset Date Last Indicated Resolved Time Rule Out COVID-19 01/24/2023 01/24/2023 01/24/2023 10:32 PM CDT documented as of this encounter Care Teams Boat Driver Relationship Specialty Start Date End Date Cyndie Eisenberg, AMANDA [address] [place] [address] PCP - General 09/25/19 Rodney Natarajan MD 420 [facility] 195 [place] [address] General Surgery 09/25/19 Luna Simons MD 420 [facility] 480 [place], [place] 698085 Hematology 09/25/19 Caroline Duque, ASHLIE Specialty Certified Personal Trainer Breast Oncology 09/30/19 Martha White MD [facility] [address] [place], [place] 049734 transition assistant 11/01/19 Rodney Natarajan MD 420 [facility] 195 [place], [place] 552305 Assigned Surgical Provider 03/20/20 08/07/21 Ankita Park MD [address] [place] [address] Assigned Behavioral Health Provider 05/03/20 06/29/23 Ankita Park MD [address] [place] [address] transition assistant 06/10/20 Luna Simons MD 420 [facility] 480 [place], [place] 440985 Assigned Cancer Care Provider 07/26/20 06/26/21 Jose Zaragoza, ARMORED TRUCK DRIVER 6405 [facility] [place], [place] 761725 Assigned Heart and Vascular Provider 11/08/20 02/04/22 Mio Mclean MD 420 [facility] 494 [place] [address] Assigned Cancer Care Provider 06/27/21 09/11/21 Luna Simons MD 420 [facility] 480 [place] [address] Assigned Cancer Care Provider 09/12/21 01/18/24 Nadja Hagen MD [address] [place] [address] Floor 2, [address] [place], [place] 666324 Resident Psychiatry 04/01/22 05/13/24 Batool Atkinson, PhD LP 2450 [facility] F[address] [place], [place] 385524 Psychologist Licensed Mental Health 04/01/22 Prisca Miller MD 6 [facility] 295 [place], [place] 277515 Resident Neurology 02/10/23 Jennyfer Steele APRN SENIOR PARALEGAL [address] [place] [address] Nurse Practitioner Psychiatry 02/23/23 Jennyfer Steele APRN SENIOR PARALEGAL [address] [place] [address] Assigned Behavioral Health Provider 06/30/23 Sadaf Apple NP Assigned PCP 07/21/23 09/18/23 [facility] [address] [place] [address] Assigned PCP 09/19/23 Yamel Saha PA-C [address] 512115 Assigned Cancer Care Provider 01/19/24 04/19/24 Luna Simons MD [address] 484[address] Assigned Cancer Care Provider 04/20/24 documented as of this encounter
--- OUTSIDE RECORDS SUMMARY | 2024-10-15 17:08 | XMS_ITS | Encounter Summary ---
Author Organization [place] Address [address] [place] [address] Care Team Providers Care Food Service Agent Name Role Phone Cyndie Eisenberg NP Primary Care Provider + Rodney Natarajan MD Unavailable [phone] Luna Simons MD Unavailable [phone] Caroline Duque RN Unavailable [phone] Martha White MD Unavailable +[phone] Ankita Park MD Unavailable [phone] Ankita Park MD Unavailable +[phone] Luna Simons MD Unavailable [phone] Nadja Hagen MD Unavailable +[phone] Batool Atkinson PhD LP Unavailable [phone] Prisca Miller MD Unavailable [phone] Jennyfer Steele APRN MULTIMEDIA EDUCATIONAL SPECIALIST Unavailable +[phone] Jennyfer Steele APRN MULTIMEDIA EDUCATIONAL SPECIALIST Unavailable + [phone] Sadaf Apple NP Unavailable Unavailable [facility] Unavailabl e Yamel Saha PA-C Unavailable +[phone] Luna Simons MD Unavailable [phone] Encounter Details Date Type Department Care Team (Late st Contact Info) Description 12/21/2022 MyC Medical Advice [facility] [place] [phone] [phone] Melisa Frances RN Social History Tobacco Use Types Packs/Day [...] Description 09/15/2025 9:15 AM CDT Ancillary Procedure [facility] Breast Center Imaging [address] 2nd [place] [address] Luna Simons MD [address] [place] [address] 360[address] 09/15/2025 10:00 AM CDT Oncology Visit [facility] [address] [place] [phone] Luna Simons MD [address] [place] [address] 751915 documented as of this encounter Visit Diagnoses Not on filedocumented in this encounter Additional Health Concerns Infection Onset Date Last Indicated Resolved Time Rule Out COVID-19 01/24/2023 01/24/2023 01/24/2023 10:32 PM CDT Assessment Noted Time PHQ-9 Depression Total Score: 22 022 3:25 PM PSYCHOLOGY ASSOCIATE documented as of this encounter Care Teams Food Service Agent Relationship Specialty Start Date End Date Cyndie Eisenberg NP [address] [place] [address] PCP - General 09/25/19 Rodney Natarajan MD 420 [facility] 195 [place], [place] 655475 MD General Surgery 09/25/19 Luna Simons MD 420 [facility] 480 [place], [place] 661365 MD Hematology 09/25/19 Caroline Duque, RN Specialty Slope Runner Breast Oncology 09/30/19 Martha White MD 2312 S [facility] [address] [place] [address] poured concrete wall technician 11/01/19 Ankita Park MD [address] [place] [phone] Assigned Behavioral Health Provider 05/03/20 06/29/23 Ankita Park MD [address] [place] [phone] poured concrete wall technician 06/10/20 Luna Simons MD [address] [place] [address] 480 [place] [address] Assigned Cancer Care Provider 09/12/21 01/18/24 Nadja Hagen MD [address] 6[address] Floor 2, [address] [place], [place] 883614 Resident Psychiatry 04/01/22 05/13/24 [place] [address] [place] [address] [address] [place], [place] 966904 Psychologist Licensed Mental Health 04/01/22 Prisca Miller MD 516 [facility] 295 [place] [address] Resident Neurology 02/10/23 Jennyfer Steele APRN MULTIMEDIA EDUCATIONAL SPECIALIST [address] [place] [address] [address]275 [place] [address] Nurse Practitioner Psychiatry 02/23/23 Jennyfer Steele APRN MULTIMEDIA EDUCATIONAL SPECIALIST [address] [place] [address] [address]275 [place] [address] Assigned Behavioral Health Provider 06/30/23 Sadaf Apple NP Assigned PCP 07/21/23 09/18/23 [facility] [address] [place] [address] Assigned PCP 09/19/23 Yamel Saha PA-C 420 [facility] 480 [place], [place] 730605 Assigned Cancer Care Provider 01/19/24 04/19/24 Luna Simons MD 420 [facility] 480 [place], [place] 576255 Assigned Cancer Care Provider 04/20/24 documented as of this encounter
--- OUTSIDE RECORDS SUMMARY | 2024-10-15 17:08 | XMS_ITS | Encounter Summary ---
Author Organization [facility] Address [address] [place] [address] Care Team Providers Care Shank Cutter Name Role Phone Cyndie Eisenberg NP Primary Care Provider + Rodney Natarajan MD Unavailable [phone] Luna Simons MD Unavailable Caroline uDque RN Unavailable +[phone] Martha White MD Unavailable [phone] Pedrito Ramirez MD Unavailable +[phone] Rodney Natarajan MD Unavailable [phone] Luna Simons MD Unavailable Martha White MD Unavailable Mio Mclean MD Unavailable [phone] Ankita Park MD Unavailable Ankita Park MD Unavailable +[phone] Mio Mclean MD Unavailable [phone] Luna Simons MD Unavailable +[phone] Luna Simons MD Unavailable Jose Zaragoza NP Unavailable Mio Mclean MD Unavailable [phone] Luna Simons MD Unavailable +[phone] Nadja Hagen MD Unavailable +[phone] Batool Atkinson PhD LP Unavailable [phone] Prisca Miller MD Unavailable +[phone] Ramin Steelejulieth Rodrigues APRN MARKETING INSTRUCTOR Unavailable + Jennyfer Steele APRN MARKETING INSTRUCTOR Unavailable + Sadaf Apple NP Unavailable Unavailable [facility] Unavailabl e Yamel Saha PA-C Unavailable +[phone] Luna Simons MD Unavailable +[phone] Encounter Details Date Type Department Care Team (Late st Contact Info) Description 01/16/2020 MyC Medical Advice [facility] Surgery and Procedure [address] [place] [address] Prisca Riggins, RN Social History Tobacco Use Types Packs/Day [...] have Coronavirus / COVID-19? No / Unsure 01/10/2020 11:28 AM CDT documented as of this encounter Plan of Treatment Upcoming Encounters Date Type Department Care Team (Late st Contact Info) Description 09/15/2025 9:15 AM CDT Ancillary Procedure [facility] Imaging [place] [address] [place] [address] [place] [address] Luna Simons MD [address] [place] [address] 480 [place], [place] 377495 09/15/2025 10:00 AM CDT Oncology Visit [facility] 909 [place] [address] Luna Simons MD 420 [facility] 480 [place], [place] 075295 documented as of this encounter Visit Diagnoses Not on filedocumented in this encounter Additional Health Concerns Infection Onset Date Last Indicated Resolved Time Rule Out COVID-19 01/24/2023 01/24/2023 01/24/2023 10:32 PM CDT documented as of this encounter Care Teams Shank Cutter Relationship Specialty Start Date End Date Cyndie Eisenberg DIE BARBER [address] [place] [address] PCP - General 09/25/19 Rodney Natarajan MD [address] [place] [address] 195 [place], [place] 415365 General Surgery 09/25/19 Luna Simons MD [address] [place] [address] 480 [place], [place] 562475 Hematology 09/25/19 Caroline Duque, RN Specialty Oracle Hrms Developer Breast Oncology 09/30/19 Martha White MD [address] [place] [address] stator tester 11/01/19 Pedrito Ramirez MD [address] [place] [place] [address] Assigned Heart and Vascular Provider 03/20/20 11/07/20 Rodney Natarajan MD 420 [place] [facility] 195 [place] [address] Assigned Surgical Provider 03/20/20 08/07/21 Luna Simons MD 420 [place] [facility] 480 [place] [address] Assigned Cancer Care Provider 03/20/20 04/11/20 Martha White MD [address] [place] [address] [address] [place], [place] 288104 Assigned Behavioral Health Provider 03/20/20 05/02/20 Mio Mclean MD 420 [place] [facility] 494 [place] [address] Assigned Cancer Care Provider 04/12/20 04/21/20 Ankita Park MD [facility] [address] [address] Assigned Behavioral Health Provider 05/03/20 06/29/23 Ankita Park MD [facility] [address] [phone] stator tester 06/10/20 Mio Mclean MD 420 [place] [facility] 494 [place] [address] Assigned Cancer Care Provider 05/10/20 07/25/20 Luna Simons MD 420 [place] [facility] 480 [place] [address] Assigned Cancer Care Provider 04/22/20 05/09/20 Luna Simons MD 420 [facility] [address] [place] [address] Assigned Cancer Care Provider 07/26/20 06/26/21 Jose Zaragoza, DIE BARBER 6405 [facility] [place] 503585 Assigned Heart and Vascular Provider 11/08/20 02/04/22 Mio Mclean MD 420 [facility] 494 [place], [place] 227105 Assigned Cancer Care Provider 06/27/21 09/11/21 Luna Simons MD 420 [facility] 480 [place], [place] 401095 Assigned Cancer Care Provider 09/12/21 01/18/24 Nadja Hagen MD 2312 S [facility] Floor 2, [address] [place] [address], [place] [address]414 Resident Psychiatry 04/01/22 05/13/24 Batool Atkinson, PhD LP [address] [place] [address] [address]VE [address] [place], [place] 534094 Psychologist Licensed Mental Health 04/01/22 Prisca Miller MD 516 [facility] [place] 295 [place], [place] 444185 Resident Neurology 02/10/23 Jennyfer Steele APRN MARKETING INSTRUCTOR [address] [place] [place], [place] [address] Nurse Practitioner Psychiatry 02/23/23 Jennyfer Steele APRN MARKETING INSTRUCTOR 2312 S [facility] [address] [place] [address] Assigned Behavioral Health Provider 06/30/23 Sadaf Apple NP Assigned PCP 07/21/23 09/18/23 [facility] [address] [place] [address] Assigned PCP 09/19/23 Yamel Saha PA-C [address] [place] [address] Assigned Cancer Care Provider 01/19/24 04/19/24 Luna Simons MD [address] [place] [address]375 Assigned Cancer Care Provider 04/20/24 documented as of this encounter
--- OUTSIDE RECORDS SUMMARY | 2024-10-15 17:08 | XMS_ITS | Encounter Summary ---
Author Organization [facility] Address [address] [place] [address] Care Team Providers Care Laboratory Chief Name Role Phone Cyndie Eisenberg NP Primary Care Provider + Rodney Natarajan MD Unavailable [phone] Luna Simons MD Unavailable Caroline Duque RN Unavailable [phone] Martha White MD Unavailable Pedrito Ramirez MD Unavailable [phone] Rodney Natarajan MD Unavailable [phone] Luna Simons MD Unavailable [phone] Martha White MD Unavailable Mio Mclean MD Unavailable [phone] Ankita Park MD Unavailable [phone] Ankita Park MD Unavailable [phone] Mio Mclean MD Unavailable [phone] Luna Simons MD Unavailable [phone] Luna Simons MD Unavailable [phone] Jose Zaragoza NP Unavailable Mio Mclean MD Unavailable [phone] Luna Simons MD Unavailable [phone] Nadja Hagen MD Unavailable +[phone] Batool Atkinson PhD LP Unavailable [phone] Prisca Miller MD Unavailable [phone] Ramin Steelen Ravi KEVIN TREE DOCTOR Unavailable + IvetteJennyfer vaughan APRN TREE DOCTOR Unavailable + Sadaf Apple NP Unavailable Unavailable [facility] Unavailabl e Yamel Saha PA-C Unavailable [phone] Luna Simons MD Unavailable [phone] Encounter Details Date Type Department Care Team (Late st Contact Info) Description 02/10/2020 MyC Medical Advice [facility] [address] [address] Rodney Natarajan MD [address] [address] Social History Tobacco Use Types [...] Description 09/15/2025 9:15 AM CDT Ancillary Procedure [facility] [address] 2nd [place] [address] Luna Simons MD 420 [facility] [place] 480 [place], [place] 2313[address] 09/15/2025 10:00 AM CDT Oncology Visit [facility] 909 [facility] [place] [phone] Luna Simons MD 420 [facility] [place] 480 [place], [place] 514895 documented as of this encounter Visit Diagnoses Not on filedocumented in this encounter Additional Health Concerns Infection Onset Date Last Indicated Resolved Time Rule Out COVID-19 01/24/2023 01/24/2023 01/24/2023 10:32 PM CDT documented as of this encounter Care Teams Laboratory Chief Relationship Specialty Start Date End Date Cyndie Eisenberg, AMANDA [address] [place] [address] PCP - General 09/25/19 Rodney Natarajan MD 420 [facility] [place] 195 [place], [place] 231265 General Surgery 09/25/19 Luna Simons MD 420 [facility] [place] 480 [place], [place] [address] Hematology 09/25/19 Caroline Duque, RN Specialty Landscape Designer Breast Oncology 09/30/19 Martha White MD [address] [place] [address] [address] [place], [place] 754264 radiochemical technician 11/01/19 Pedrito Ramirez MD 6405 [facility] [address] [place], [place] 800525 Assigned Heart and Vascular Provider 03/20/20 11/07/20 Rodney Natarajan MD 420 [place] [facility] 195 [place], [place] 398205 Assigned Surgical Provider 03/20/20 08/07/21 Luna Simons MD 420 [facility] 480 [place] [address] Assigned Cancer Care Provider 03/20/20 04/11/20 Martha White MD [address] [place] [address] [address] [place], [place] 363144 Assigned Behavioral Health Provider 03/20/20 05/02/20 Mio Mclean MD 420 [facility] [place] 494 [place] [address] Assigned Cancer Care Provider 04/12/20 04/21/20 Ankita Park MD [address] [place] [address] Assigned Behavioral Health Provider 05/03/20 06/29/23 Ankita Park MD [address] [place] [phone] radiochemical technician 06/10/20 Mio Mclean MD 420 [facility] [place] 494 [place] [address] Assigned Cancer Care Provider 05/10/20 07/25/20 Luna Simons MD 420 [facility] [place] 480 [place] [address] Assigned Cancer Care Provider 04/22/20 05/09/20 Luna Simons MD 420 [facility] [place] 480 [place] [address] Assigned Cancer Care Provider 07/26/20 06/26/21 Jose Zaragoza, SUPERINTENDENT RADIO COMMUNICATIONS 6405 [place] [address] Assigned Heart and Vascular Provider 11/08/20 02/04/22 Mio Mclean MD 420 [facility] [place] 494 [place] [address] Assigned Cancer Care Provider 06/27/21 09/11/21 Luna Simons MD 420 [facility] [place] 480 [place] [address] Assigned Cancer Care Provider 09/12/21 01/18/24 Nadja Hagen MD [address] 2, [address] [place], [place] 7[address]854 Resident Psychiatry 04/01/22 05/13/24 Batool Atkinson, PhD LP 2450 [facility] F[address] [place], [place] 383534 Psychologist Licensed Mental Health 04/01/22 Prisca Miller MD 516 [facility] 295 [place] [address] Resident Neurology 02/10/23 Jennyfer Steele APRN TREE DOCTOR 2312 S [facility] [address] [place] [address] Nurse Practitioner Psychiatry 02/23/23 Jennyfer Steele APRN TREE DOCTOR 2312 [address] [facility] [address] [place] [address] Assigned Behavioral Health Provider 06/30/23 Sadaf Apple NP Assigned PCP 07/21/23 09/18/23 [facility] [address] [place] [address] Assigned PCP 09/19/23 Yamel Saha PA-C 420 [facility] 480 [place], [place] 130795 Assigned Cancer Care Provider 01/19/24 04/19/24 Luna Simons MD 420 [facility] [place] 480 [place], [place] 236005 Assigned Cancer Care Provider 04/20/24 documented as of this encounter
--- OUTSIDE RECORDS SUMMARY | 2024-10-15 17:08 | XMS_ITS | Encounter Summary ---
Author Organization [facility] Address [address] [place] [address] Care Team Providers Care Rhythmic Gymnastics Coach Name Role Phone Cyndie Eisenberg NP Primary Care Provider + Rodney Natarajan MD Unavailable [phone] Luna Simons MD Unavailable Caroline Duque RN Unavailable [phone] Martha White MD Unavailable Pedrito Ramirez MD Unavailable [phone] Rodney Natarajan MD Unavailable [phone] Ankita Park MD Unavailable [phone] Ankita Park MD Unavailable [phone] Luna Simons MD Unavailable [phone] Jose Zaragoza NP Unavailable Mio Mclean MD Unavailable [phone] Luna Simons MD Unavailable [phone] Nadja Hagen MD Unavailable [phone] Batool Atkinson PhD LP Unavailable [phone] Prisca Miller MD Unavailable Jennyfer Steele APRN FIELD REPRESENTATIVES DIRECTOR Unavailable +- Jennyfer Steele WEIGHT TRAINER FIELD REPRESENTATIVES DIRECTOR Unavailable + Sadaf Apple NP Unavailable Unavailable [facility] Unavailabl e Yaeml Saha PA-C Unavailable Luna Simons MD Unavailable Encounter Details Date Type Department Care Team (Late Contact Info) Description 08/24/2020 MyC Medical Advice [facility] Cancer [address] [address] Talita Bradshaw Social History Tobacco [...] [facility] [address] 2nd [place] [address] Luna Simons MD [address] [place] [address] 09/15/2025 10:00 AM CDT Oncology Visit [facility] Cancer [address] [address] Luna Simons MD [address] [place] [address] documented as of this encounter Visit Diagnoses Not on filedocumented in this encounter Additional Health Concerns Infection Onset Date Last Indicated Resolved Time Rule Out COVID-19 01/24/2023 01/24/2023 01/24/2023 10:32 PM CDT documented as of this encounter Care Teams Rhythmic Gymnastics Coach Relationship Specialty Start Date End Date Cyndie Eisenberg NP [address] [place] [address] PCP - General 09/25/19 Rodney Natarajan MD 420 [place] [facility] 195 [place], [place] 36[address]05 General Surgery 09/25/19 Luna Simons MD 420 [place] [facility] 480 [place], [place] [address]165 Hematology 09/25/19 Caroline Duque, RN Specialty Dye And Chemical Coordinator Breast Oncology 09/30/19 Martha White MD [address] [place] [address] [address] [place], [place] 243604 shipping specialist 11/01/19 Pedrito Ramirez MD 6405 [facility] [address] [place] [address] Assigned Heart and Vascular Provider 03/20/20 11/07/20 Rodney Natarajan MD 420 [place] [facility] 195 [place], [place] 6[address]005 Assigned Surgical Provider 03/20/20 08/07/21 Ankita Park MD [facility] [place] [phone] Assigned Behavioral Health Provider 05/03/20 06/29/23 Ankita Park MD 2450 [facility] [address] [phone] shipping specialist 06/10/20 Luna Simons MD 420 [facility] 480 [place], [place] 524245 Assigned Cancer Care Provider 07/26/20 06/26/21 Jose Zaragoza NP 6405 [facility] [place] [address] Assigned Heart and Vascular Provider 11/08/20 02/04/22 Mio Mclean MD 420 [facility] 494 [place], [place] 47[address]55 Assigned Cancer Care Provider 06/27/21 09/11/21 Luna Simons MD 420 [facility] 480 [place] [address] Assigned Cancer Care Provider 09/12/21 01/18/24 Nadja Hagen MD [address] 2, [address] [place], [place] 560[address] Resident Psychiatry 04/01/22 05/13/24 Batool Atkinson, PhD LP [address] [place] [address] [address] [place], [place] 6537[address] Psychologist Licensed Mental Health 04/01/22 Prisca Miller MD 516 [facility] 295 [place] [address] Resident Neurology 02/10/23 Jennyfer Steele APRN FIELD REPRESENTATIVES DIRECTOR [address] [place] [address] [address] [place] [address] Nurse Practitioner Psychiatry 02/23/23 Jennyfer Steele APRN FIELD REPRESENTATIVES DIRECTOR [address] [place] [address] [address] [place] [address] Assigned Behavioral Health Provider 06/30/23 Sadaf Apple NP Assigned PCP 07/21/23 09/18/23 [facility] [address] [place] [address] Assigned PCP 09/19/23 Yamel Saha PA-C 420 [facility] 480 [place], [place] 6[address]455 Assigned Cancer Care Provider 01/19/24 04/19/24 Luna Simons MD 420 [facility] 480 [place], [place] 126515 Assigned Cancer Care Provider 04/20/24 documented as of this encounter
--- OUTSIDE RECORDS SUMMARY | 2024-10-15 17:09 | XMS_ITS | Encounter Summary ---
Author Organization [facility] Address [address] [place] [address] Care Team Providers Care Psychiatry Resident Name Role Phone Cyndie Eisenberg NP Primary Care Provider + Rodney Natarajan MD Unavailable [phone] Luna Simons MD Unavailable Caroline Duque RN Unavailable [phone] Martha White MD Unavailable Pedrito Ramirez MD Unavailable Rodney Natarajan MD Unavailable [phone] Luna Simons MD Unavailable Martha White MD Unavailable Mio Mclean MD Unavailable [phone] Ankita Park MD Unavailable [phone] Ankita Park MD Unavailable [phone] Mio Mclean MD Unavailable [phone] Luna Simons MD Unavailable +[phone] Luna Simons MD Unavailable Jose Zaragoza NP Unavailable Mio Mclean MD Unavailable [phone] Luna Simons MD Unavailable [phone] Nadja Hagen MD Unavailable [phone] Batool Atkinson PhD LP Unavailable [phone] Prisca Miller MD Unavailable [phone] Ramin Steelen Ravi BUSINESS PROCESS MODELER CANVAS GOODS FABRICATOR Unavailable + Jennyfer Steele APRN CANVAS GOODS FABRICATOR Unavailable + Sadaf Apple NP Unavailable Unavailable Clinic - [facility] Unavailabl e Yamel Saha PA-C Unavailable +[phone] Luna Simons MD Unavailable +[phone] Encounter Details Date Type Department Care Team (Late st Contact Info) Description 03/18/2020 [facility] Medical Advice [facility] [address] [place] [address] [facility] Social History Tobacco Use Types Packs/Day Years [...] have Coronavirus / COVID-19? No / Unsure 03/19/2020 10:03 AM CDT documented as of this encounter Plan of Treatment Upcoming Encounters Date Type Department Care Team (Late st Contact Info) Description 09/15/2025 9:15 AM CDT Ancillary Procedure [facility] Imaging [place] [address] [place] [address] 2nd [place] [address] Luna Simons MD [address] [address] 09/15/2025 10:00 AM CDT Oncology Visit [facility] 909 [place] [address] Luna Simons MD 420 [facility] 480 [place] [address] documented as of this encounter Visit Diagnoses Not on filedocumented in this encounter Additional Health Concerns Infection Onset Date Last Indicated Resolved Time Rule Out COVID-19 01/24/2023 01/24/2023 01/24/2023 10:32 PM CDT documented as of this encounter Care Teams Psychiatry Resident Relationship Specialty Start Date End Date Cyndie Eisenberg TOOLMAKER HELPER [address] [place] [address] PCP - General 09/25/19 Rodney Natarajan MD 420 [facility] 195 [place] [address] General Surgery 09/25/19 Luna Simons MD [address] [place] [address] 480 [place] [address] Hematology 09/25/19 Caroline Duque, ASHLIE Specialty Gravity Meter Operator Breast Oncology 09/30/19 Martha White MD [address] [place] [address] [place], [place] 492[address] revolving inventory clerk 11/01/19 Pedrito Ramirez MD [address] [place] [address] [place] [address] Assigned Heart and Vascular Provider 03/20/20 11/07/20 Rodney Natarajan MD 420 [place] [facility] 195 [place] [address] Assigned Surgical Provider 03/20/20 08/07/21 Luna Simons MD 420 [place] [facility] 480 [place] [address] Assigned Cancer Care Provider 03/20/20 04/11/20 Martha White MD [address] [place] [address] [address] [place], [place] 379854 Assigned Behavioral Health Provider 03/20/20 05/02/20 Mio Mclean MD 420 [place] [facility] 494 [place] [address] Assigned Cancer Care Provider 04/12/20 04/21/20 Ankita Park MD [facility] [address] [phone] Assigned Behavioral Health Provider 05/03/20 06/29/23 Ankita Park MD [address] [place] [phone] revolving inventory clerk 06/10/20 Mio Mclean MD 420 [place] [facility] 494 [place] [address] Assigned Cancer Care Provider 05/10/20 07/25/20 Luna Simons MD 420 [place] [facility] 480 [place] [address] Assigned Cancer Care Provider 04/22/20 05/09/20 Luna Simons MD 420 [facility] 480 [place], [place] [address]75 Assigned Cancer Care Provider 07/26/20 06/26/21 Jose Zaragoza, TOOLMAKER HELPER 6405 [facility] [place] [place] [address] Assigned Heart and Vascular Provider 11/08/20 02/04/22 Mio Mclean MD 420 [facility] 494 [place], [place] [address]225 Assigned Cancer Care Provider 06/27/21 09/11/21 Luna Simons MD 420 [facility] 480 [place], [place] [address] Assigned Cancer Care Provider 09/12/21 01/18/24 Nadja Hagen MD [facility] [address] Floor 2, [address] [place], [place] [address] Resident Psychiatry 04/01/22 05/13/24 Batool Atkinson, PhD LP [address] [place] 8166682 [place], [place] 417[address] Psychologist Licensed Mental Health 04/01/22 Prisca Miller MD 6 [facility] 295 [place], [place] 4[address]75 Resident Neurology 02/10/23 Jennyfer Steele APRN CANVAS GOODS FABRICATOR [address] [place], [place] [address] Nurse Practitioner Psychiatry 02/23/23 Jennyfer Steele APRN CANVAS GOODS FABRICATOR [address] [place] [address] Assigned Behavioral Health Provider 06/30/23 Sadaf Apple NP Assigned PCP 07/21/23 09/18/23 [facility] [address] [place] [address] Assigned PCP 09/19/23 Yamel Saha PA-C [address] [address] Assigned Cancer Care Provider 01/19/24 04/19/24 Luna Simons MD [address] 8[address] Assigned Cancer Care Provider 04/20/24 documented as of this encounter
--- OUTSIDE RECORDS SUMMARY | 2024-10-15 17:09 | XMS_ITS | Encounter Summary ---
Author Organization [facility] Address [address] [place] [address] Care Team Providers Care Loop Machine Operator Name Role Phone Cyndie Eisenberg NP Primary Care Provider + Rodney Natarajan MD Unavailable [phone] Luna Simons MD Unavailable [phone] Caroline Duque RN Unavailable +[phone] Martha White MD Unavailable Pedrito Ramirez MD Unavailable +[phone] Rodney Natarajan MD Unavailable +[phone] Luna Simons MD Unavailable Martha White MD Unavailable Mio Mclean MD Unavailable +[phone] Ankita Park MD Unavailable Ankita Park MD Unavailable +[phone] Mio Mclean MD Unavailable +[phone] Luna Simons MD Unavailable +[phone] Luna Simons MD Unavailable Jose Zaragoza NP Unavailable Mio Mclean MD Unavailable +[phone] Luna Simons MD Unavailable [phone] Nadja Hagen MD Unavailable +[phone] Batool Atkinson PhD LP Unavailable +[phone] Prisca Miller MD Unavailable +[phone] Ramin Steelen Ravi KEVIN UNIFORMS SALES REPRESENTATIVE Unavailable + IvetteJennyfer vaughan APRN UNIFORMS SALES REPRESENTATIVE Unavailable + Sadaf Apple NP Unavailable Unavailable Clinic - [facility] Unavailabl e Yamel Saha PA-C Unavailable [phone] Luna Simons MD Unavailable +[phone] Encounter Details Date Type Department Care Team (Late st Contact Info) Description 02/13/2020 [facility] [address] [place] [address] Caroline Duque, ASHLIE Social History Tobacco Use Types Packs/Day [...] encounter Miscellaneous Notes * Telephone Encounter - Faina Hassan CMA - 02/14/2020 8:41 AM CDT Radiation referral faxed to [facility] @ [phone]. Patient was advised of this. Faina Hassan CMA (AAMA) documented in this encounter Plan of Treatment Upcoming Encounters Date Type Department Care Team (Late st Contact Info) Description 09/15/2025 9:15 AM CDT Ancillary Procedure [facility] Breast Center Imaging [place] [address] [facility] [address] 2nd [place] [phone] Luna Simons MD 420 [facility] 480 [place], [place] 6[address]855 09/15/2025 10:00 AM CDT Oncology Visit [facility] 909 [place] [phone] Luna Simons MD 420 [facility] 480 [place], [place] 368925 documented as of this encounter Visit Diagnoses Not on filedocumented in this encounter Additional Health Concerns Infection Onset Date Last Indicated Resolved Time Rule Out COVID-19 01/24/2023 01/24/2023 01/24/2023 10:32 PM CDT documented as of this encounter Care Teams Loop Machine Operator Relationship Specialty Start Date End Date Cyndie Eisenberg NP [address] [place] [address] PCP - General 09/25/19 Rodney Natarajan MD [address] [place] [address] 195 [place] [address] General Surgery 09/25/19 Luna Simons MD 420 [facility] 480 [place], [place] 352595 Hematology 09/25/19 Caroline Duque, RN [facility] Corpsman Breast Oncology 09/30/19 Martha White MD [address] [facility] [address] [place] [address] repair electric motor assembler 11/01/19 Pedrito Ramirez MD [address] [facility] [address] [place] [address] [place] [address] Assigned Heart and Vascular Provider 03/20/20 11/07/20 Rodney Natarajan MD 420 [facility] 195 [place], [place] 395335 Assigned Surgical Provider 03/20/20 08/07/21 Luna Simons MD 420 [facility] 480 [place], [place] 581625 Assigned Cancer Care Provider 03/20/20 04/11/20 Martha White MD [address] [place] [address] [address] [place] [address] Assigned Behavioral Health Provider 03/20/20 05/02/20 Mio Mclean MD 420 [facility] 494 [place], [place] 617015 Assigned Cancer Care Provider 04/12/20 04/21/20 Ankita Park MD [facility] [place] [phone] Assigned Behavioral Health Provider 05/03/20 06/29/23 Ankita Park MD [address] [place] [address] [place] [phone] repair electric motor assembler 06/10/20 Mio Mclean MD 420 [facility] 494 [place] [address] Assigned Cancer Care Provider 05/10/20 07/25/20 Luna Simons MD 420 [place] [facility] 480 [place] [address] Assigned Cancer Care Provider 04/22/20 05/09/20 Luna Simons MD 420 [place] [facility] 480 [place] [address] Assigned Cancer Care Provider 07/26/20 06/26/21 Jose Zaragoza, HOSE WRAPPER 6405 [place], [place] 779935 Assigned Heart and Vascular Provider 11/08/20 02/04/22 Mio Mclean MD 420 [facility] 494 [place] [address] Assigned Cancer Care Provider 06/27/21 09/11/21 Luna Simons MD 420 [place] [facility] 480 [place] [address] Assigned Cancer Care Provider 09/12/21 01/18/24 Nadja Hagen MD [address] 2, [address] [place], [place] 926164 Resident Psychiatry 04/01/22 05/13/24 Batool Atkinson, PhD LP 2450 [facility] [address] [place], [place] 981344 Psychologist Licensed Mental Health 04/01/22 Prisca Miller MD 516 [facility] 295 [place], [place] 10[address]55 Resident Neurology 02/10/23 Jennyfer Steele APRN UNIFORMS SALES REPRESENTATIVE [address] [place] [address], [facility] [address] [place], [place] 214524 Nurse Practitioner Psychiatry 02/23/23 Jennyfer Steele APRN UNIFORMS SALES REPRESENTATIVE [address] [place] [address] [address] [place], [place] 229734 Assigned Behavioral Health Provider 06/30/23 Sadaf Apple NP Assigned PCP 07/21/23 09/18/23 [facility] [address] [place] [address] Assigned PCP 09/19/23 Yamel Saha PA-C 420 [facility] 480 [place], [place] 834985 Assigned Cancer Care Provider 01/19/24 04/19/24 Luna Simons MD 420 [facility] 480 [place], [place] 570815 Assigned Cancer Care Provider 04/20/24 documented as of this encounter
--- OUTSIDE RECORDS SUMMARY | 2024-10-15 17:09 | XMS_ITS | Encounter Summary ---
Author Organization [facility] Address [address] [place] [address] Care Team Providers Care Dam Tender Assistant Name Role Phone Cyndie Eisenberg NP Primary Care Provider + Rodney Natarajan MD Unavailable [phone] Luna Simons MD Unavailable Caroline Duque RN Unavailable [phone] Martha White MD Unavailable Pedrito Ramirez MD Unavailable Rodney Natarajan MD Unavailable [phone] Luna Simons MD Unavailable Martha White MD Unavailable [phone] Mio Mclean MD Unavailable [phone] Ankita Park MD Unavailable [phone] Ankita Park MD Unavailable [phone] Mio Mclean MD Unavailable [phone] Luna Simons MD Unavailable Luna Simons MD Unavailable +[phone] Jose Zaragoza NP Unavailable Mio Mclean MD Unavailable [phone] Luna Simons MD Unavailable [phone] Nadja Hagen MD Unavailable +[phone] Batool Atkinson PhD LP Unavailable [phone] Prisca Miller MD Unavailable +[phone] Ramin Steelen Ravi CLINIC MD ASSOCIATE WARP KNITTING MACHINE OPERATOR Unavailable + Jennyfer Steele APRN WARP KNITTING MACHINE OPERATOR Unavailable + Sadaf Apple NP Unavailable Unavailable [facility] Unavailabl e Yamel Saha PA-C Unavailable +[phone] Luna Simons MD Unavailable [phone] Encounter Details Date Type Department Care Team (Late st Contact Info) Description 11/20/2019 MyC Medical Advice [facility] [place] [id number] [facility][note 3][address] [phone] [facility] Social History Tobacco Use Types Packs/Day [...] Ancillary Procedure [facility] Breast Center Imaging [place] 909 [facility] 2nd [place] [address] Luna Simons MD [address] [place] [address]36705 09/15/2025 10:00 AM CDT Oncology Visit [facility] [address] [place] [phone] Luna Simons MD 420 [facility] 480 [place], [place] 316245 documented as of this encounter Visit Diagnoses Not on filedocumented in this encounter Additional Health Concerns Infection Onset Date Last Indicated Resolved Time Rule Out COVID-19 01/24/2023 01/24/2023 01/24/2023 10:32 PM CDT documented as of this encounter Care Teams Dam Tender Assistant Relationship Specialty Start Date End Date Cyndie Eisenberg NP [address] [place] [address] PCP - General 09/25/19 Rodney Natarajan MD 420 [facility] 195 [place], [place] 129395 General Surgery 09/25/19 Luna Simons MD [address] 982525 Hematology 09/25/19 Caroline Duque, RN Specialty Nuclear Fuels Reclamation Engineer Breast Oncology 09/30/19 Martha White MD 2312 [address] [facility] [place] [address] [place] [address] assistant director of financial aid 11/01/19 Pedrito Ramirez MD 6405 [facility] [address] [place], [place] 803915 Assigned Heart and Vascular Provider 03/20/20 11/07/20 Rodney Natarajan MD 420 [facility] 195 [place], [place] 270415 Assigned Surgical Provider 03/20/20 08/07/21 Luna Simons MD 420 [facility] 480 [place] [address] Assigned Cancer Care Provider 03/20/20 04/11/20 Martha White MD [facility][note 3][address] [place] [address] Assigned Behavioral Health Provider 03/20/20 05/02/20 Mio Mclean MD 420 [facility] 494 [place] [address] Assigned Cancer Care Provider 04/12/20 04/21/20 Ankita Park MD [address] [place] [phone] Assigned Behavioral Health Provider 05/03/20 06/29/23 Ankita Park MD [address] [place] [phone] assistant director of financial aid 06/10/20 Mio Mclean MD 420 [facility] 494 [place] [address] Assigned Cancer Care Provider 05/10/20 07/25/20 Luna Simons MD 420 [facility] 480 [place] [address] Assigned Cancer Care Provider 04/22/20 05/09/20 Luna Simons MD 420 [facility] 480 [place] [address] Assigned Cancer Care Provider 07/26/20 06/26/21 Jose Zaragoza, TOOL SALVAGE WORKER 6405 [facility] [place] [address] Assigned Heart and Vascular Provider 11/08/20 02/04/22 Mio Mclean MD 420 [facility] 494 [place] [address] Assigned Cancer Care Provider 06/27/21 09/11/21 Luna Simons MD 420 [facility] 480 [place] [address] Assigned Cancer Care Provider 09/12/21 01/18/24 Nadja Hagen MD [facility][note 3]2 [address] [facility] Floor 2, [address] [place], [place] 772554 Resident Psychiatry 04/01/22 05/13/24 Batool Atkinson, PhD LP 2450 [facility] F282 [place], [place] 794034 Psychologist Licensed Mental Health 04/01/22 Prisca Miller MD 516 [facility] 295 [place], [place] 266705 Resident Neurology 02/10/23 Jennyfer Steele APRN WARP KNITTING MACHINE OPERATOR [address] [place] [address] [place] [address] Nurse Practitioner Psychiatry 02/23/23 Jennyfer Steele APRN WARP KNITTING MACHINE OPERATOR [address] [place] [address] [place] [address] Assigned Behavioral Health Provider 06/30/23 Sadaf Apple NP Assigned PCP 07/21/23 09/18/23 [facility] [address] [place] [address] Assigned PCP 09/19/23 Yamel Saha PA-C [address] [id number] Assigned Cancer Care Provider 01/19/24 04/19/24 Luna Simons MD [address] [address] Assigned Cancer Care Provider 04/20/24 documented as of this encounter
--- OUTSIDE RECORDS SUMMARY | 2024-10-15 17:09 | XMS_ITS | Encounter Summary ---
Author Organization [facility] Address [address] [place] [address] Care Team Providers Care Manager Training And Development Name Role Phone Cyndie Eisenberg NP Primary Care Provider + Rodney Natarajan MD Unavailable Luna Simons MD Unavailable [phone] Caroline Duque RN Unavailable [phone] Martha White MD Unavailable Pedrito Ramirez MD Unavailable [phone] Rodney Natarajan MD Unavailable [phone] Luna Simons MD Unavailable Martha White MD Unavailable Mio Mclean MD Unavailable [phone] Ankita Park MD Unavailable [phone] Anktia Park MD Unavailable [phone] Mio Mclean MD Unavailable [phone] Luna Simons MD Unavailable [phone] Luna Simons MD Unavailable Jose Zaragoza NP Unavailable [phone] Mio Mclean MD Unavailable [phone] Luna Simons MD Unavailable [phone] Nadja Hagen MD Unavailable [phone] Batool Atkinson PhD LP Unavailable [phone] Prisca Miller MD Unavailable [phone] Ramin Steelen Ravi OUTSIDE MACHINIST SUPERVISOR EARLY CHILDHOOD ASSISTANT Unavailable + IvetteJennyfer vaughan APRN EARLY CHILDHOOD ASSISTANT Unavailable + Sadaf Apple NP Unavailable Unavailable Clinic - [facility] Unavailabl e Yamel Saha PA-C Unavailable [phone] Lnua Simons MD Unavailable [phone] Encounter Details Date Type Department Care Team (Late st Contact Info) Description 11/26/2019 MyC Medical Advice [facility] Cancer [address] [address] [facility] Social History Tobacco Use Types Packs/Day Years [...] have Coronavirus / COVID-19? No / Unsure 11/26/2019 8:36 AM CDT documented as of this encounter Plan of Treatment Upcoming Encounters Date Type Department Care Team (Late st Contact Info) Description 09/15/2025 9:15 AM CDT Anc[address] [facility] Breast Center Imaging [address] 2nd [place] [address] Luna Simons MD [address] [place] [address] 09/15/2025 10:00 AM CDT Oncology Visit [facility] Cancer [address] [place] [phone] Luna Simons MD 420 [facility] 480 [place], [place] 325465 documented as of this encounter Visit Diagnoses Not on filedocumented in this encounter Additional Health Concerns Infection Onset Date Last Indicated Resolved Time Rule Out COVID-19 01/24/2023 01/24/2023 01/24/2023 10:32 PM CDT documented as of this encounter Care Teams Manager Training And Development Relationship Specialty Start Date End Date Cyndie Eisenberg, PODIATRIC PHYSICIAN [address] [place] [address] PCP - General 09/25/19 Rodney Natarajan MD [address] [place] [address] 087865 General Surgery 09/25/19 Luna Simons MD [address] [place] [address] 577445 Hematology 09/25/19 Caroline Duque, RN Specialty Broodmare Foreman Breast Oncology 09/30/[address] [facility] [place] [address] [address] [place] [address] cat hooker 11/01/19 Pedrito Ramirez MD 6405 [facility] [address] [place], [place] 505565 Assigned Heart and Vascular Provider 03/20/20 11/07/20 Rodney Natarajan MD [address] [place] [address] 195 [place], [place] 115395 Assigned Surgical Provider 03/20/20 08/07/21 Luna Simons MD 420 [facility] [place] [facility] 480 [place] [address] Assigned Cancer Care Provider 03/20/20 04/11/[address] [facility] [address] [place], [place] 577294 Assigned Behavioral Health Provider 03/20/20 05/02/20 Mio Mclean MD [address] [address] Assigned Cancer Care Provider 04/12/20 04/21/20 Ankita Park MD [address] [place] [phone] Assigned Behavioral Health Provider 05/03/20 06/29/23 Ankita Park MD [address] [place] [phone] cat hooker 06/10/20 Mio Mclean MD [address] [address] Assigned Cancer Care Provider 05/10/20 07/25/20 Luna Simons MD 420 [facility] 480 [place] [address] Assigned Cancer Care Provider 04/22/20 05/09/20 Luna Simons MD 420 [facility] 480 [place] [address] Assigned Cancer Care Provider 07/26/20 06/26/21 Jose Zaragoza, PODIATRIC PHYSICIAN 6405 [facility] [place] [address] Assigned Heart and Vascular Provider 11/08/20 02/04/22 Mio Mclean MD 420 [facility] 494 [place] [address] Assigned Cancer Care Provider 06/27/21 09/11/21 Luna Simons MD 420 [facility] 480 [place] [address] Assigned Cancer Care Provider 09/12/21 01/18/24 Nadja Hagen MD [address] [place] [address] Floor 2, [address] [place], [place] 532044 Resident Psychiatry 04/01/22 05/13/24 Batool Atkinson, PhD LP 2450 [facility] F282 [place], [place] 930394 Psychologist Licensed Mental Health 04/01/22 Prisca Miller MD 6 [facility] 295 [place], [place] 6[address]275 Resident Neurology 02/10/23 Jennyfer Steele APRN EARLY CHILDHOOD ASSISTANT [facility] [place] [address] [place] [address] Nurse Practitioner Psychiatry 02/23/23 Jennyfer Steele APRN EARLY CHILDHOOD ASSISTANT [facility] S [facility] F275 [place] [address] Assigned Behavioral Health Provider 06/30/23 Sadaf Apple NP Assigned PCP 07/21/23 09/18/23 [facility] [address] [place] [address] Assigned PCP 09/19/23 Yamel Saha PA-C [address] 208075 Assigned Cancer Care Provider 01/19/24 04/19/24 Luna Simons MD [address] [address] Assigned Cancer Care Provider 04/20/24 documented as of this encounter
--- OUTSIDE RECORDS SUMMARY | 2024-10-15 17:09 | XMS_ITS | Encounter Summary ---
Author Organization [facility] Address [address] [place] [address] Care Team Providers Care Local Az Truck Driver Name Role Phone Cyndie Eisenberg NP Primary Care Provider + Rodney Natarajan MD Unavailable [phone] Luna Simons MD Unavailable Caroline Duque RN Unavailable [phone] Martha White MD Unavailable Pedrito Ramirez MD Unavailable [phone] Rodney Natarajan MD Unavailable [phone] Luna Simons MD Unavailable Martha White MD Unavailable Mio Mclean MD Unavailable [phone] Ankita Park MD Unavailable [phone] Ankita Park MD Unavailable [phone] Mio Mclean MD Unavailable Luna Simons MD Unavailable [phone] Luna Simons MD Unavailable +[phone] Jose Zaragoza NP Unavailable [phone] Mio Mclean MD Unavailable [phone] Luna Simons MD Unavailable [phone] Nadja Hagen MD Unavailable [phone] Batool Atkinson PhD LP Unavailable [phone] Prisca Miller MD Unavailable +[phone] Ramin Steelen Ravi BUILDING CUSTODIAL SUPERVISOR E COMMERCE DEVELOPER Unavailable + IvetteJennyfer vaughan APRN E COMMERCE DEVELOPER Unavailable + Sadaf Apple NP Unavailable Unavailable Clinic - [facility] Unavailabl e Yamel Saha PA-C Unavailable [phone] Luna Simons MD Unavailable +[phone] Encounter Details Date Type Department Care Team (Late st Contact Info) Description 11/26/2019 MyC Medical Advice [facility] Cancer [address] [address] [facility] Social History Tobacco Use Types Packs/Day Years [...] [facility] Breast Center Imaging [address] 2nd [place] [address] Luna Simons MD [address] [place] [address] 09/15/2025 10:00 AM CDT Oncology Visit [facility] Cancer [address] [place] [phone] Luna Simons MD 420 [facility] 480 [place], [place] 900845 documented as of this encounter Visit Diagnoses Not on filedocumented in this encounter Additional Health Concerns Infection Onset Date Last Indicated Resolved Time Rule Out COVID-19 01/24/2023 01/24/2023 01/24/2023 10:32 PM CDT documented as of this encounter Care Teams Local Az Truck Driver Relationship Specialty Start Date End Date Cyndie Eisenberg, ACADEMIC ADVISING DIRECTOR [address] [place] [address] PCP - General 09/25/19 Rodney Natarajan MD [address] [place] [address] 721675 General Surgery 09/25/19 Luna Simons MD [address] [place] [address] 978425 Hematology 09/25/19 Caroline Duque, RN Specialty Mathematical Scientist Breast Oncology 09/30/19 Martha White MD [facility] [address] [place] [address] [address] [place] [address] deputy commonwealth's attorney 11/01/19 Pedrito Ramirez MD 6405 [facility] [address]200 [place], [place] 358885 Assigned Heart and Vascular Provider 03/20/20 11/07/20 Rodney Natarajan MD [address] [place] [address] 195 [place], [place] 842575 Assigned Surgical Provider 03/20/20 08/07/21 Luna Simons MD 420 [facility] 480 [place] [address] Assigned Cancer Care Provider 03/20/20 04/11/20 Martha White MD [facility] [address] [place], [place] 45[address]14 Assigned Behavioral Health Provider 03/20/20 05/02/20 Mio Mclean MD [address] [address] Assigned Cancer Care Provider 04/12/20 04/21/20 Ankita Park MD [address] [place] [phone] Assigned Behavioral Health Provider 05/03/20 06/29/23 Ankita Park MD [address] [place] [phone] deputy commonwealth's attorney 06/10/20 Mio Mclean MD [address] [address] Assigned Cancer Care Provider 05/10/20 07/25/20 Luna Simons MD 420 [facility] 480 [place] [address] Assigned Cancer Care Provider 04/22/20 05/09/20 Luna Simons MD 420 [facility] 480 [place] [address] Assigned Cancer Care Provider 07/26/20 06/26/21 Jose Zaragoza, ACADEMIC ADVISING DIRECTOR 6405 [facility] [address] Assigned Heart and Vascular Provider 11/08/20 02/04/22 Mio Mclean MD 420 [facility] 494 [place] [address] Assigned Cancer Care Provider 06/27/21 09/11/21 Luna Simons MD 420 [facility] 480 [place] [address] Assigned Cancer Care Provider 09/12/21 01/18/24 Nadja Hagen MD [address] [place] [address] Floor 2, [address] [place], [place] 719184 Resident Psychiatry 04/01/22 05/13/24 Batool Atkinson, PhD LP 2450 [facility] F282 [place], [place] 732704 Psychologist Licensed Mental Health 04/01/22 Prisca Miller MD 6 [facility] 295 [place], [place] [address]995 Resident Neurology 02/10/23 Jennyfer Steele APRN E COMMERCE DEVELOPER [facility] [place] [address] [place] [address] Nurse Practitioner Psychiatry 02/23/23 Jennyfer Steele APRN E COMMERCE DEVELOPER [facility] S [facility] F275 [place] [address] Assigned Behavioral Health Provider 06/30/23 Sadaf Apple NP Assigned PCP 07/21/23 09/18/23 [facility] [address] [place] [address] Assigned PCP 09/19/23 Yamel Saha PA-C [address] 605415 Assigned Cancer Care Provider 01/19/24 04/19/24 Luna Simons MD [address] [address] Assigned Cancer Care Provider 04/20/24 documented as of this encounter
--- OUTSIDE RECORDS SUMMARY | 2024-10-15 17:09 | XMS_ITS | Encounter Summary ---
Author Organization [facility] Address [address] [place] [address] Care Team Providers Care Ambulatory Care Name Role Phone Cyndie Eisenberg NP Primary Care Provider + Rodney Natarajan MD Unavailable [phone] Luna Simons MD Unavailable Caroline Duque RN Unavailable [phone] Martha White MD Unavailable Pedrito Ramirez MD Unavailable +[phone] Rodney Natarajan MD Unavailable [phone] Luna Simons MD Unavailable +[phone] Martha White MD Unavailable Mio Mclean MD Unavailable [phone] Ankita Park MD Unavailable [phone] Ankita Park MD Unavailable [phone] Mio Mclean MD Unavailable [phone] Luna Simons MD Unavailable +[phone] Luna Simons MD Unavailable +[phone] Jose Zaragoza NP Unavailable Mio Mclean MD Unavailable [phone] Luna Simons MD Unavailable +[phone] Nadja Hagen MD Unavailable +[phone] Batool Atkinson PhD LP Unavailable +[phone] Prisca Miller MD Unavailable +[phone] Ramin Steelen Ravi DENTAL CHAIRSIDE ASSISTANT FILM TECHNICIAN Unavailable + Jennyfer Steele APRN FILM TECHNICIAN Unavailable + Sadaf Apple NP Unavailable Unavailable [facility] Unavailabl e Yamel Saha PA-C Unavailable +[phone] Luna Simons MD Unavailable +[phone] Encounter Details Date Type Department Care Team (Late st Contact Info) Description 11/06/2019 MyC Medical Advice [facility] [address] [place] 200 [facility] [place] [phone] Suni Vernon, LUIGI Social History Tobacco Use Types Packs/Day Years [...] have Coronavirus / COVID-19? No / Unsure 11/07/2019 2:21 PM CDT documented as of this encounter Plan of Treatment Upcoming Encounters Date Type Department Care Team (Late st Contact Info) Description 09/15/2025 9:15 AM CDT Ancillary Procedure [facility] Imaging [place] 528959 [facility] 2nd [place] [address] Luna Simons MD [address] [place] [address] 09/15/2025 10:00 AM CDT Oncology Visit [facility] 909 [place] [phone] Luna Simons MD [address] [place] [address] 131525 documented as of this encounter Visit Diagnoses Not on filedocumented in this encounter Additional Health Concerns Infection Onset Date Last Indicated Resolved Time Rule Out COVID-19 01/24/2023 01/24/2023 01/24/2023 10:32 PM CDT documented as of this encounter Care Teams Ambulatory Care Relationship Specialty Start Date End Date Cyndie Eisenberg NP [address] [place] [address] PCP - General 09/25/19 Rodney Natarajan MD [address] [place] [address] 715035 General Surgery 09/25/19 Luna Simons MD [address] [place] [address] 140735 Hematology 09/25/19 Caroline Duque, RN Specialty Drama Teacher Breast Oncology 09/30/19 Martha White MD [address] [place] [address] [address] [place] [address] sales rep 11/01/19 Pedrito Ramirez MD [address] [facility] [address] [place], [place] 405565 Assigned Heart and Vascular Provider 03/20/20 11/07/20 Rodney Natarajan MD [address] [place] [address] Assigned Surgical Provider 03/20/20 08/07/21 Luna Simons MD 420 [facility] 480 [place] [address] Assigned Cancer Care Provider 03/20/20 04/11/20 Martha White MD [address] [place] [address] [address] [place] [address] Assigned Behavioral Health Provider 03/20/20 05/02/20 Mio Mclean MD 420 [facility] 494 [place] [address] Assigned Cancer Care Provider 04/12/20 04/21/20 Ankita Park MD [address] [place] [phone] Assigned Behavioral Health Provider 05/03/20 06/29/23 Ankita Park MD [address] [place] [phone] sales rep 06/10/20 Mio Mclean MD 420 [facility] 494 [place] [address] Assigned Cancer Care Provider 05/10/20 07/25/20 Luna Simons MD 420 [facility] 480 [place] [address] Assigned Cancer Care Provider 04/22/20 05/09/20 Luna Simons MD 420 [facility] 480 [place] [address] Assigned Cancer Care Provider 07/26/20 06/26/21 Jose Zaragoza, BLUEPRINT ASSEMBLER 6405 [facility] [place], [place] 846195 Assigned Heart and Vascular Provider 11/08/20 02/04/22 Mio Mclean MD 420 [facility] 494 [place], [place] 002605 Assigned Cancer Care Provider 06/27/21 09/11/21 Luna Simons MD 420 [facility] 480 [place], [place] 122785 Assigned Cancer Care Provider 09/12/21 01/18/24 Nadja Hagen MD 2312 S [facility] Floor 2, [address] [place], [place] 251434 Resident Psychiatry 04/01/22 05/13/24 Batool Atkinson, PhD LP [address] [place], [place] 710234 Psychologist Licensed Mental Health 04/01/22 Prisca Miller MD 516 [facility] SE [facility] 295 [place], [place] 737765 Resident Neurology 02/10/23 Jennyfer Steele APRN FILM TECHNICIAN [address], [place] [address] [place] [address] Nurse Practitioner Psychiatry 02/23/23 Jennyfer Steele APRN FILM TECHNICIAN [address], [place] [address] [place], [place] 129314 Assigned Behavioral Health Provider 06/30/23 Sadaf Apple NP Assigned PCP 07/21/23 09/18/23 [facility] [address] [place] [address] Assigned PCP 09/19/23 Yamel Saha PA-C [address] [address] Assigned Cancer Care Provider 01/19/24 04/19/24 Luna Simons MD [address] [phone] Assigned Cancer Care Provider 04/20/24 documented as of this encounter
--- OUTSIDE RECORDS SUMMARY | 2024-10-15 17:09 | XMS_ITS | Encounter Summary ---
Author Organization [facility] Address [address] [place] [address] Care Team Providers Care Mental Health Professional Name Role Phone Cyndie Eisenberg NP Primary Care Provider + Rodney Natarajan MD Unavailable [phone] Luna Simons MD Unavailable Caroline Duqeu RN Unavailable [phone] Martha White MD Unavailable Pedrito Ramirez MD Unavailable [phone] Rodney Natarajan MD Unavailable [phone] Luna Simons MD Unavailable Martha White MD Unavailable Mio Mclean MD Unavailable [phone] Ankita Park MD Unavailable [phone] Ankita Park MD Unavailable [phone] Mio Mclean MD Unavailable [phone] Luna Simons MD Unavailable [phone] Luna Simons MD Unavailable Jose Zaragoza NP Unavailable [phone] Mio Mclean MD Unavailable [phone] Luna Simons MD Unavailable [phone] Nadja Hagen MD Unavailable +[phone] Batool Atkinson PhD LP Unavailable [phone] Prisca Miller MD Unavailable [phone] Ramin Steelen Ravi CANE CUTTER PRINCIPAL SYSTEMS ENGINEER Unavailable + IvetteJennyfer vaughan APRN PRINCIPAL SYSTEMS ENGINEER Unavailable + Sadaf Apple NP Unavailable Unavailable [facility] Unavailabl e Yamel Saha PA-C Unavailable +[phone] Luna Simons MD Unavailable [phone] Encounter Details Date Type Department Care Team (Late st Contact Info) Description 11/27/2019 MyC Medical Advice [facility] [address] [address] Tawny Mccormick, ASHLIE Social History Tobacco Use Types Packs/Day [...] 09/15/2025 9:15 AM CDT Ancillary Procedure [facility] Imaging [address] 2nd [place] [address] Luna Simons MD [address] [place] [address] 09/15/2025 10:00 AM CDT Oncology Visit [facility] Cancer [address] [place] [phone] Luna Simons MD 420 [facility] 480 [place], [place] 678205 documented as of this encounter Visit Diagnoses Not on filedocumented in this encounter Additional Health Concerns Infection Onset Date Last Indicated Resolved Time Rule Out COVID-19 01/24/2023 01/24/2023 01/24/2023 10:32 PM CDT documented as of this encounter Care Teams Mental Health Professional Relationship Specialty Start Date End Date Cyndie Eisenberg, NEON ELECTRICIAN [address] [place] [address] PCP - General 09/25/19 Rodney Natarajan MD [address] [place] [address] 212705 General Surgery 09/25/19 Luna Simons MD [address] [place] [address] 941525 Hematology 09/25/19 Caroline Duque, RN Specialty Cryogenics Repairer Breast Oncology 09/30/19 Martha White MD [address] [place] [address] [address] [place] [address] prevocational/rehabilitation counselor 11/01/19 Pedrito Ramirez MD 6405 [facility] [address]200 [place], [place] 643945 Assigned Heart and Vascular Provider 03/20/20 11/07/20 Rodney Natarajan MD [address] [place] [address] 195 [place], [place] 845565 Assigned Surgical Provider 03/20/20 08/07/21 Luna Simons MD 420 [facility] 480 [place] [address] Assigned Cancer Care Provider 03/20/20 04/11/20 Martha White MD [facility] [address] [place], [place] 0[address]364 Assigned Behavioral Health Provider 03/20/20 05/02/20 Mio Mclean MD 420 [facility] 494 [place] [address] Assigned Cancer Care Provider 04/12/20 04/21/20 Ankita Park MD [address] [place] [phone] Assigned Behavioral Health Provider 05/03/20 06/29/23 Ankita Park MD [address] [place] [phone] prevocational/rehabilitation counselor 06/10/20 Mio Mclean MD [address] [address] Assigned Cancer Care Provider 05/10/20 07/25/20 Luna Simons MD 420 [facility] 480 [place] [address] Assigned Cancer Care Provider 04/22/20 05/09/20 Luna Simons MD 420 [facility] 480 [place] [address] Assigned Cancer Care Provider 07/26/20 06/26/21 Jose Zaragoza, NEON ELECTRICIAN 6405 [place] [address] Assigned Heart and Vascular Provider 11/08/20 02/04/22 Mio Mclean MD 420 [facility] 494 [place] [address] Assigned Cancer Care Provider 06/27/21 09/11/21 Luna Simons MD 420 [facility] 480 [place] [address] Assigned Cancer Care Provider 09/12/21 01/18/24 Nadja Hagen MD [address] [place] [address] Floor 2, [address] [place], [place] 590384 Resident Psychiatry 04/01/22 05/13/24 Batool Atkinson, PhD LP 2450 [facility] F282 [place], [place] [phone] Psychologist Licensed Mental Health 04/01/22 Prisca Miller MD 6 [facility] 295 [place], [place] 325775 Resident Neurology 02/10/23 Jennyfer Steele APRN PRINCIPAL SYSTEMS ENGINEER [facility]2 S [facility], [place] [address] [place], [place] 880814 Nurse Practitioner Psychiatry 02/23/23 Jennyfer Steele APRN PRINCIPAL SYSTEMS ENGINEER [facility] S [facility], [facility] [address]275 [place] [address] Assigned Behavioral Health Provider 06/30/23 Sadaf Apple NP Assigned PCP 07/21/23 09/18/23 [facility] [address] [place] [address] Assigned PCP 09/19/23 Yamel Saha PA-C [address] 288695 Assigned Cancer Care Provider 01/19/24 04/19/24 Luna Simons MD [address] 519905 Assigned Cancer Care Provider 04/20/24 documented as of this encounter
--- OUTSIDE RECORDS SUMMARY | 2024-10-15 17:09 | XMS_ITS | Encounter Summary ---
Author Organization [facility] Address [address] [place] [address] Care Team Providers Care Cement Patcher Name Role Phone Cyndie Eisenberg NP Primary Care Provider + Rodney Natarajan MD Unavailable [phone] Luna Simons MD Unavailable Caroline Duque RN Unavailable [phone] Martha White MD Unavailable Pedrito Ramirez MD Unavailable [phone] Rodney Natarajan MD Unavailable Luna Simons MD Unavailable Martha White MD Unavailable Mio Mclean MD Unavailable [phone] Ankita Park MD Unavailable [phone] Ankita Park MD Unavailable [phone] Mio Mclena MD Unavailable [phone] Luna Simons MD Unavailable [phone] Luna Simons MD Unavailable Jose Zaragoza NP Unavailable Mio Mclean MD Unavailable [phone] Luna Simons MD Unavailable [phone] Nadja Hagen MD Unavailable [phone] Batool Atkinson PhD LP Unavailable [phone] Prisca Miller MD Unavailable [phone] Jennyfer Steele DOULA GLASS WOOL BLANKET MACHINE FEEDER Unavailable + IvetteJennyfer APRN GLASS WOOL BLANKET MACHINE FEEDER Unavailable + Sadaf Apple NP Unavailable Unavailable Clinic - [facility] Unavailabl e Yamel Saha PA-C Unavailable [phone] Luna Simons MD Unavailable [phone] Encounter Details Date Type Department Care Team (Late st Contact Info) Description 12/30/[address] [facility] [address] [place] [address] Luna Simons MD [address] [place] [address] Social History Tobacco Use Types Packs/Day Years Used Date Smoking Tobacco: Never Smokeless Tobacco: Never Comments No Sex and Gender Information Value Date Recorded Sex Assigned at Not on file Legal Sex Female 9:05 AM CDT Gender Identity Not on file Sexual Orientation Not on file COVID-19 Exposure Response Date Recorded In the last month, have you been in contact with someone who was confirmed or suspected to have Coronavirus / COVID-19? No / Unsure 12/26/2019 7:07 AM CDT documented as of this encounter Plan of Treatment Upcoming Encounters Date Type Department Care Team (Late st Contact Info) Description 09/15/2025 9:15 AM CDT Ancillary Procedure [facility] [place] [address] [place] [address] 2nd [place] [address] Luna Simons MD [address] [place] [address] 09/15/2025 10:00 AM CDT Oncology Visit [facility] 909 [place] [phone] Luna Simons MD 420 [facility] 480 [place] [address] documented as of this encounter Visit Diagnoses Not on filedocumented in this encounter Additional Health Concerns Infection Onset Date Last Indicated Resolved Time Rule Out COVID-19 01/24/2023 01/24/2023 01/24/2023 10:32 PM CDT documented as of this encounter Care Teams Cement Patcher Relationship Specialty Start Date End Date Cyndie Eisenberg FLOOR CLEANER [address] [place] [address] PCP - General 09/25/19 Rodney Natarajan MD 420 [facility] 195 [place] [address] General Surgery 09/25/19 Luna Simons MD [address] [place] [address] 480 [place] [address] Hematology 09/25/19 Caroline Duque, RN Specialty Strip Cleaner Breast Oncology 09/30/19 Martha White MD [address] [place] [address] [place], [place] 394514 compressor service technician 11/01/19 Pedrito Ramirez MD [address] [place] [address] [place] [address] Assigned Heart and Vascular Provider 03/20/20 11/07/20 Rodney Natarajan MD 420 [place] [facility] 195 [place] [address] Assigned Surgical Provider 03/20/20 08/07/21 Luna Simons MD 420 [place] [facility] 480 [place] [address] Assigned Cancer Care Provider 03/20/20 04/11/20 Martah White MD [address] [place] [address] [address] [place], [place] 506214 Assigned Behavioral Health Provider 03/20/20 05/02/20 Mio Mclean MD 420 [place] [facility] 494 [place] [address] Assigned Cancer Care Provider 04/12/20 04/21/20 Ankita Park MD [address] [address] Assigned Behavioral Health Provider 05/03/20 06/29/23 Ankita Park MD [address] [phone] compressor service technician 06/10/20 Mio Mclean MD 420 [place] [facility] 494 [place] [address] Assigned Cancer Care Provider 05/10/20 07/25/20 Luna Simons MD 420 [place] [facility] 480 [place] [address] Assigned Cancer Care Provider 04/22/20 05/09/20 Luna Simons MD 420 [facility] 480 [place], [place] 489435 Assigned Cancer Care Provider 07/26/20 06/26/21 Jose Zaragoza, FLOOR CLEANER 6405 [facility] [place] 5[address]25 Assigned Heart and Vascular Provider 11/08/20 02/04/22 Mio Mclean MD 420 [facility] 494 [place], [place] 967485 Assigned Cancer Care Provider 06/27/21 09/11/21 Luna Simons MD 420 [facility] 480 [place], [place] 804655 Assigned Cancer Care Provider 09/12/21 01/18/24 Nadja Hagen MD [facility]2 S [facility] Floor 2, [address] [place], [place] 7[address]794 Resident Psychiatry 04/01/22 05/13/24 Batool Atkinson, PhD LP [address] [place] [address] [address] [place], [place] 983074 Psychologist Licensed Mental Health 04/01/22 Prisca Miller MD 6 [facility] 295 [place], [place] 215025 Resident Neurology 02/10/23 Jennyfer Steele, DOULA GLASS WOOL BLANKET MACHINE FEEDER [address], [place] [address] [place], [place] 763864 Nurse Practitioner Psychiatry 02/23/23 Jennyfer Steele APRN GLASS WOOL BLANKET MACHINE FEEDER 2312 [place] 1208675 [place], [place] 974084 Assigned Behavioral Health Provider 06/30/23 Sadaf Apple NP Assigned PCP 07/21/23 09/18/23 [facility] [address] [place] [address] Assigned PCP 09/19/23 Yamel Saha PA-C [address] 903685 Assigned Cancer Care Provider 01/19/24 04/19/24 Luna Simons MD [address] 801095 Assigned Cancer Care Provider 04/20/24 documented as of this encounter
--- OUTSIDE RECORDS SUMMARY | 2024-10-15 17:09 | XMS_ITS | Encounter Summary ---
Author Organization [facility] Address [address] [place] [address] Care Team Providers Care Family Service Center Director Name Role Phone Cyndie Eisenberg NP Primary Care Provider + Rodney Natarajan MD Unavailable [phone] Luna Simons MD Unavailable Caroline Duque RN Unavailable [phone] Martha White MD Unavailable Pedrito Ramirez MD Unavailable [phone] Rodney Natarajan MD Unavailable Luna Simons MD Unavailable Martha White MD Unavailable Mio Mclean MD Unavailable [phone] Ankita Park MD Unavailable [phone] Ankita Park MD Unavailable [phone] Mio Mclean MD Unavailable [phone] Luna Simons MD Unavailable Luna Simons MD Unavailable Jose Zaragoza NP Unavailable Mio Mclean MD Unavailable [phone] Luna Simons MD Unavailable [phone] Nadja Hagen MD Unavailable +[phone] Batool Atkinson PhD LP Unavailable [phone] Prisca Miller MD Unavailable +[phone] Ramin Steelen Ravi BOND CLERK SEAM PRESSER Unavailable + IvetteJennyfer vaughan APRN SEAM PRESSER Unavailable + Sadaf Apple NP Unavailable Unavailable Clinic - [facility] Unavailabl e Yamel Saha PA-C Unavailable [phone] Luna Simons MD Unavailable +[phone] Encounter Details Date Type Department Care Team (Late st Contact Info) Description 12/31/2019 MyC Medical Advice [facility] Cancer [address] [address] [facility] Social History Tobacco Use Types Packs/Day Years [...] have Coronavirus / COVID-19? No / Unsure 01/03/2020 10:03 AM CDT documented as of this encounter Plan of Treatment Upcoming Encounters Date Type Department Care Team (Late st Contact Info) Description 09/15/2025 9:15 AM CDT Ancillary Procedure [facility] Imaging [address] 2nd [place] [address] Luna Simons MD [address] [place] [address] 09/15/2025 10:00 AM CDT Oncology Visit [facility] [address] [place] [phone] Luna Simons MD 420 [facility] 480 [place], [place] 271885 documented as of this encounter Visit Diagnoses Not on filedocumented in this encounter Additional Health Concerns Infection Onset Date Last Indicated Resolved Time Rule Out COVID-19 01/24/2023 01/24/2023 01/24/2023 10:32 PM CDT documented as of this encounter Care Teams Family Service Center Director Relationship Specialty Start Date End Date Cyndie Eisenberg, FILM PROCESS OPERATOR [address] [place] [address] PCP - General 09/25/19 Rodney Natarajan MD [address] [place] [address] 763235 General Surgery 09/25/19 Luna Simons MD [address] [place] [address] 573155 Hematology 09/25/19 Caroline Duque, RN Specialty [place] Breast Oncology 09/30/19 Martha White MD [facility] [place] [address] [address] [place] [address] 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 11/01/19 Pedrito Ramirez MD 6405 [facility] [address] [place], [place] 772415 Assigned Heart and Vascular Provider 03/20/20 11/07/20 Rodney Natarajan MD [address] [place] [address] 195 [place], [place] 650585 Assigned Surgical Provider 03/20/20 08/07/21 Luna Simons MD 420 [facility] 480 [place] [address] Assigned Cancer Care Provider 03/20/20 04/11/20 Martha White MD [facility] [address] [place], [place] 191714 Assigned Behavioral Health Provider 03/20/20 05/02/20 Mio Mclean MD [address] [address] Assigned Cancer Care Provider 04/12/20 04/21/20 Ankita Park MD [address] [place] [phone] Assigned Behavioral Health Provider 05/03/20 06/29/23 Ankita Park MD [address] [place] [phone] 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 06/10/20 Mio Mclean MD [address] [address] Assigned Cancer Care Provider 05/10/20 07/25/20 Luna Simons MD 420 [facility] 480 [place] [address] Assigned Cancer Care Provider 04/22/20 05/09/20 Luna Simons MD 420 [facility] 480 [place] [address] Assigned Cancer Care Provider 07/26/20 06/26/21 Jose Zaragoza, FILM PROCESS OPERATOR 6405 [facility] [place] [address] Assigned Heart and Vascular Provider 11/08/20 02/04/22 Mio Mclean MD 420 [facility] 494 [place] [address] Assigned Cancer Care Provider 06/27/21 09/11/21 Luna Simons MD 420 [facility] 480 [place] [address] Assigned Cancer Care Provider 09/12/21 01/18/24 Nadja Hagen MD [address] [place] [address] Floor 2, [address] [place], [place] 436[address] Resident Psychiatry 04/01/22 05/13/24 Batool Atkinson, PhD LP 2450 [facility] F282 [place], [place] 734454 Psychologist Licensed Mental Health 04/01/22 Prisca Miller MD 6 [facility] 295 [place], [place] 13[address]55 Resident Neurology 02/10/23 Jennyfer Steele APRN SEAM PRESSER [facility] [place] [address] [place] [address] Nurse Practitioner Psychiatry 02/23/23 Jennyfer Steele APRN SEAM PRESSER [facility]2 S [facility] F275 [place] [address] Assigned Behavioral Health Provider 06/30/23 Sadaf Apple NP Assigned PCP 07/21/23 09/18/23 [facility] [address] [place] [address] Assigned PCP 09/19/23 Yamel Saha PA-C [address] 851175 Assigned Cancer Care Provider 01/19/24 04/19/24 Luna Simons MD [address] [address] Assigned Cancer Care Provider 04/20/24 documented as of this encounter
--- OUTSIDE RECORDS SUMMARY | 2024-10-15 17:09 | XMS_ITS | Encounter Summary ---
Author Organization [place] Address [address] [place] [address] Care Team Providers Care Computer Operator Name Role Phone Cyndie Eisenberg NP Primary Care Provider + Rodney Natarajan MD Unavailable [phone] Luna Simons MD Unavailable [phone] Caroline Duque RN Unavailable [phone] Martha White MD Unavailable Pedrito Ramirez MD Unavailable [phone] Rodney Natarajan MD Unavailable Luna Simons MD Unavailable Martha White MD Unavailable Mio Mclean MD Unavailable [phone] Ankita Park MD Unavailable [phone] Ankita Park MD Unavailable [phone] Mio Mclean MD Unavailable [phone] Luna Simons MD Unavailable Luna Simons MD Unavailable Jose Zaragoza NP Unavailable Mio Mclean MD Unavailable [phone] Luna Simons MD Unavailable [phone] Nadja Hagen MD Unavailable [phone] Batool Atkinson PhD LP Unavailable [phone] Prisca Miller MD Unavailable [phone] Ramin Steelen Ravi KEVIN CORRECTIVE THERAPY AIDE Unavailable + Jennyfer Steele APRN CORRECTIVE THERAPY AIDE Unavailable + Sadaf Apple NP Unavailable Unavailable Clinic - [facility] Unavailabl e Yamel Saha PA-C Unavailable [phone] Luna Simons MD Unavailable [phone] Encounter Details Date Type Department Care Team (Late st Contact Info) Description 12/31/2019 [facility] [address] [place] [address] Luna Simons MD [address] [address] Social History Tobacco Use Types [...] encounter Miscellaneous Notes * Telephone Encounter - Elvia Renee RN - 12/31/2019 4:03 PM CDT Called pt to discuss symptomatic mychart; she stated she noticed a small clump of rash on her left side Monday. It was itchy but had not spread and cortisone was effective to stop the itching. Today noticed another small area underneath her left breast by the bra line. She typically does not wear dionicio but had to wear one when she came to infusion on 12/23. She has not changed to any new detergents, deodorant, soaps or lotions. Both areas are itchy and has not spread, neither are painful or burning. Denied any fevers or chills. Her sister is a combination welder and thought it looked more like an irritation. Pictures on mychart are not very clear, asked pt to send more pictures, asked her to contin ue cortisone if effective for itch and call back if area grows larger or continues into a linear spread, gets painful or a burning sensation, she verbalized understanding. documented in this encounter Plan of Treatment Upcoming Encounters Date Type Department Care Team (Late st Contact Info) Description 09/15/2025 9:15 AM CDT Ancillary Procedure [facility] Imaging [address] 2nd [place] [phone] Luna Simons MD [address] [place] [address] 09/15/2025 10:00 AM CDT Oncology Visit [facility] [address] [place] [phone] Luna Simons MD [address] [place] [address] documented as of this encounter Visit Diagnoses Not on filedocumented in this encounter Additional Health Concerns Infection Onset Date Last Indicated Resolved Time Rule Out COVID-19 01/24/2023 01/24/2023 01/24/2023 10:32 PM CDT documented as of this encounter Care Teams Computer Operator Relationship Specialty Start Date End Date Cyndie Eisenberg NP [address] [place] [address] PCP - General 09/25/19 Rodney Natarajan MD [address] [facility] 195 [place], [place] 6[address] General Surgery 09/25/19 Luna Simons MD [address] [facility] 480 [place], [place] 9[address]395 Hematology 09/25/19 Caroline Duque, RN Specialty Career Discovery Teacher Breast Oncology 09/30/19 Martha White MD [address] [facility] [address] [place], [place] 083784 supervisor mechanic 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 11/01/19 Pedrito Ramirez MD [address] [facility] [address] [place], [place] 867[address] Assigned Heart and Vascular Provider 03/20/20 11/07/20 Rodney Natarajan MD [address] [facility] 195 [place], [place] 642315 Assigned Surgical Provider 03/20/20 08/07/21 Luna Simons MD [address] [facility] 480 [place], [place] [address]145 Assigned Cancer Care Provider 03/20/20 04/11/20 Martha White MD [address] [place] [address] [address] [place], [place] [phone] Assigned Behavioral Health Provider 03/20/20 05/02/20 Mio Mclean MD [address] [facility] 494 [place], [place] 944345 Assigned Cancer Care Provider 04/12/20 04/21/20 Ankita Park MD [address] [place] [phone] Assigned Behavioral Health Provider 05/03/20 06/29/23 Ankita Park MD [address] [place] [phone] supervisor mechanic 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 06/10/20 Mio Mclean MD [address] 89[address] Assigned Cancer Care Provider 05/10/20 07/25/20 Luna Simons MD [address] [address] Assigned Cancer Care Provider 04/22/20 05/09/20 Luna Simons MD [address] [address] Assigned Cancer Care Provider 07/26/20 06/26/21 Jose Zaragoza, LEAD PRESSMAN [address]405 [place] [address] Assigned Heart and Vascular Provider 11/08/20 02/04/22 Mio Mclean MD [address] [address] Assigned Cancer Care Provider 06/27/21 09/11/21 Luna Simons MD [address] [address] Assigned Cancer Care Provider 09/12/21 01/18/24 Nadja Hagen MD [address] [place] [address] [address] 2, [address] [place] [address] Resident Psychiatry 04/01/22 05/13/24 Batool Atkinson, PhD LP [address] [place] [address] [address] [place], [place] 272804 Psychologist Licensed Mental Health 04/01/22 Prisca Miller MD 6 [facility] 295 [place], [place] 86[address] Resident Neurology 02/10/23 Jennyfer Steele APRN CORRECTIVE THERAPY AIDE [address] [place] [address], [place] [place] [address] Nurse Practitioner Psychiatry 02/23/23 Jennyfer Steele APRN CORRECTIVE THERAPY AIDE [address] [place] [address], [address] [place] [address] Assigned Behavioral Health Provider 06/30/23 Sadaf Apple NP Assigned PCP 07/21/23 09/18/23 [facility] [address] [place] [address] Assigned PCP 09/19/23 Yamel Saha PA-C 420 [facility] 480 [place] [address] Assigned Cancer Care Provider 01/19/24 04/19/24 Luna Simons MD [address] [address] Assigned Cancer Care Provider 04/20/24 documented as of this encounter
--- OUTSIDE RECORDS SUMMARY | 2024-10-15 17:09 | XMS_ITS | Encounter Summary ---
Author Organization [facility] Address [address] [place] [address] Care Team Providers Care Pressurization Mechanic Name Role Phone Lucita French MD Primary Care Provider Encounter Details Date Type Department Care Team (Late st Contact Info) Description 08/24/2020 Lab Requisition [facility] [address] [phone] Geovanni Guzman MD [address] [place] [address] Cough; Myalgia, unspecified site Social History Tobacco Use Types Packs/Day Years [...] Associated Diagnosis Comments 2019 NOVEL CORONAVIRUS Routine 08/24/2020 3:05 PM CDT Cough Myalgia, unspecified site documented in this encounter Results * (ABNORMAL) COVID-19 (ROUTINE)-choose patient type (08/24/2020 3:05 PM CDT) COVID-19 Interpretation Detected (A) Not Detected 08/25/2020 9:19 PM CDT [facility] Swab (Source Required) .No Charge / Unknown 08/24/2020 3:05 PM CDT 08/24/2020 7:30 PM CDT Narrative [facility] - 08/25/2020 9:19 PM CDT Test performed by T Rail Turner Mediated Amplification. TMA has been shown to be equivalent to commercial real-time PCR tests. This test has been authorized by the FDA under an Emergency Use Authorization (EUA) for use by authorized laboratories. us Geovanni Guzman MD LAB_1 Final Result [facility] [address] [place] [address], [facility] [phone] documented in this encounter Visit Diagnoses Diagnosis Cough Myalgia, unspecified site documented in this encounter Additional Health Concerns Infection Onset Date Last Indicated Resolved Time COVID19 08/24/2020 08/24/2020 09/13/2020 3:17 AM CDT R/O COVID19 08/24/2020 08/24/2020 08/25/2020 9:37 PM CDT Respiratory Rule-Out (Converted) 08/25/2020 08/26/1908/25/2020 6:11 AM CDT Undiagnosed Unformed Stools Rule-Out (Converted) 08/25/2020 08/25/2020 08/26/2020 11:07 PM CDT R/O COVID19 03/29/2021 03/29/2021 03/29/2021 2:53 PM CDT documented as of this encounter Care Teams Pressurization Mechanic Relationship Specialty Start Date End Date Lucita French MD [address] [place] [address] PCP - General Family Practice 07/15/21 documented as of this encounter
--- OUTSIDE RECORDS SUMMARY | 2024-10-15 17:09 | XMS_ITS | Encounter Summary ---
Author Organization [facility] Address [address] [place] [address] Care Team Providers Care Arbor End Mainspring Former Name Role Phone Cyndie Eisenberg NP Primary Care Provider + Rodney Natarajan MD Unavailable [phone] Luna Simons MD Unavailable [phone] Caroline Duque RN Unavailable [phone] Martha White MD Unavailable Pedrito Ramirez MD Unavailable [phone] Rodney Natarajan MD Unavailable [phone] Luna Simons MD Unavailable [phone] Martha White MD Unavailable Mio Mclean MD Unavailable [phone] Ankita Park MD Unavailable [phone] Ankita Park MD Unavailable [phone] iMo Mclean MD Unavailable [phone] Luna Simons MD Unavailable Luna Simons MD Unavailable Jose Zaragoza NP Unavailable Mio Mclean MD Unavailable [phone] Luna Simons MD Unavailable [phone] Nadja Hagen MD Unavailable [phone] Batool Atkinson PhD LP Unavailable [phone] Prisca Miller MD Unavailable [phone] Jennyfer Steele WEATHERIZATION AND HOUSING INSPECTOR GARDE MANAGER Unavailable + IvetteJennyfer APRN GARDE MANAGER Unavailable + Sadaf Apple NP Unavailable Unavailable Clinic - [facility] Unavailabl e Yamel Saha PA-C Unavailable [phone] Luna Simons MD Unavailable [phone] Encounter Details Date Type Department Care Team (Late st Contact Info) Description 12/23/2019 MyC Medical Advice [facility] [address] [place] [address] Serene Childs PA-C 909 [facility] 202 [place] [address] Social History Tobacco Use Types [...] Procedure [facility] Imaging [place] [address] [facility] [address] 2nd [place] [address] Luna Simons MD 420 [facility] 480 [place] [address] 09/15/2025 10:00 AM CDT Oncology Visit [facility] [address] [place] [phone] Luna Simons MD 420 [facility] 480 [place], [place] [address] documented as of this encounter Visit Diagnoses Not on filedocumented in this encounter Additional Health Concerns Infection Onset Date Last Indicated Resolved Time Rule Out COVID-19 01/24/2023 01/24/2023 01/24/2023 10:32 PM CDT documented as of this encounter Care Teams Arbor End Mainspring Former Relationship Specialty Start Date End Date Cyndie Eisenberg, ROUNDHOUSE WORKER [address] [place] [address] PCP - General 09/25/19 Rodney Natarajan MD 420 [facility] 195 [place] [address] General Surgery 09/25/19 Luna Simons MD [address] [place] [address] 480 [place] [address] Hematology 09/25/19 Caroline Duque, ASHLIE Specialty Hull Builder Breast Oncology 09/30/19 Martha White MD [address] [place] [address] [place], [place] [address] label stamper 11/01/19 Pedrito Ramirez MD [address] [place] [address] [place] [address] Assigned Heart and Vascular Provider 03/20/20 11/07/20 Rodney Natarajan MD [address] [address] [facility] 195 [place] [address] Assigned Surgical Provider 03/20/20 08/07/21 Luna Simons MD [address] [address] [facility] 480 [place] [address] Assigned Cancer Care Provider 03/20/20 04/11/20 Martha White MD [address] [place] [address] [address] [place], [place] [address]434 Assigned Behavioral Health Provider 03/20/20 05/02/20 Mio Mclean MD [address] [facility] [address] [facility] 494 [place] [address] Assigned Cancer Care Provider 04/12/20 04/21/20 Ankita Park MD [address] [address] Assigned Behavioral Health Provider 05/03/20 06/29/23 Ankita Park MD [address] [phone] label stamper 06/10/20 Mio Mclean MD [address] [address] [facility] 494 [place] [address] Assigned Cancer Care Provider 05/10/20 07/25/20 Luna Simons MD [address] [address] [facility] 480 [place] [address] Assigned Cancer Care Provider 04/22/20 05/09/20 Luna Simons MD 420 [facility] [address] [place], [place] [address]825 Assigned Cancer Care Provider 07/26/20 06/26/21 Jose Zaragoza, ROUNDHOUSE WORKER [address] [facility] [place] [address]35 Assigned Heart and Vascular Provider 11/08/20 02/04/22 Mio Mclean MD 420 [facility] 494 [place], [place] [address]185 Assigned Cancer Care Provider 06/27/21 09/11/21 Luna Simons MD [address] [place] [address] 480 [place], [place] 24[address]35 Assigned Cancer Care Provider 09/12/21 01/18/24 Nadja Hagen MD [address] [facility] Floor 2, [address] [place], [place] [address] Resident Psychiatry 04/01/22 05/13/24 Batool Atkinson, PhD LP [facility] 82 [place], [place] 09[address]84 Psychologist Licensed Mental Health 04/01/22 Prisca Miller MD 6 [facility] 295 [place], [place] [address] Resident Neurology 02/10/23 Jennyfer Steele, WEATHERIZATION AND HOUSING INSPECTOR GARDE MANAGER [address], [place] [address] [place] 6[address] Nurse Practitioner Psychiatry 02/23/23 Jennyfer Steele APRN [facility] [address] [place], [place] [address] Assigned Behavioral Health Provider 06/30/23 Sadaf Apple NP Assigned PCP 07/21/23 09/18/23 [facility] [address] [place] [address] Assigned PCP 09/19/23 Yamel Saha PA-C [address] [address] Assigned Cancer Care Provider 01/19/24 04/19/24 Luna Simons MD [address] 8979[address] Assigned Cancer Care Provider 04/20/24 documented as of this encounter
--- OUTSIDE RECORDS SUMMARY | 2024-10-15 17:09 | XMS_ITS | Encounter Summary ---
Author Organization [place] Address [address] [place] [address] Care Team Providers Care Tree Planter Name Role Phone Cyndie Eisenberg NP Primary Care Provider + Rodney Natarajan MD Unavailable [phone] Luna Simons MD Unavailable Caroline Duque RN Unavailable Martha White MD Unavailable Pedrito Ramirez MD Unavailable [phone] Rodney Natarajan MD Unavailable [phone] Luna Simons MD Unavailable [phone] Martha White MD Unavailable Mio Mclean MD Unavailable [phone] Ankita Park MD Unavailable [phone] Ankita Park MD Unavailable [phone] Mio Mclean MD Unavailable [phone] Luna Simons MD Unavailable Luna Simons MD Unavailable Jose Zaragoza NP Unavailable [phone] Mio Mclean MD Unavailable [phone] Luna Simons MD Unavailable [phone] Nadja Hagen MD Unavailable [phone] Batool Atkinson PhD LP Unavailable [phone] Prisca Miller MD Unavailable [phone] Jennyfer Steele DIRECTOR OF FINANCIAL AID SKELP PROCESSOR Unavailable + IvetteJennyfer APRN SKELP PROCESSOR Unavailable + Sadaf Apple NP Unavailable Unavailable Clinic - [facility] Unavailabl e Yamel Saha PA-C Unavailable +[phone] Luna Simons MD Unavailable [phone] Encounter Details Date Type Department Care Team (Late st Contact Info) Description 11/28/[address] [facility] [address] [place] [address] Luna Simons MD [address] [place] [address] Social History Tobacco Use Types Packs/Day [...] 09/15/2025 9:15 AM CDT Ancillary Procedure [facility] Imaging [place] [address] [place] [address] 2nd [place] [address] Luna Siomns MD [address] [place] [address] 09/15/2025 10:00 AM CDT Oncology Visit [facility] 9[address] [place] [phone] Luna Simons MD 420 [facility] 480 [place] [address] documented as of this encounter Visit Diagnoses Not on filedocumented in this encounter Additional Health Concerns Infection Onset Date Last Indicated Resolved Time Rule Out COVID-19 01/24/2023 01/24/2023 01/24/2023 10:32 PM CDT documented as of this encounter Care Teams Tree Planter Relationship Specialty Start Date End Date Cyndie Eisenberg HEALTH AND PHYSICAL EDUCATION TEACHER [address] [place] [address] PCP - General 09/25/19 Rodney Natarajan MD 420 [facility] 195 [place] [address] General Surgery 09/25/19 Luna Simons MD [address] [place] [address] 480 [place] [address] Hematology 09/25/19 Caroline Duque, RN Specialty Paraffin Machine Operator Breast Oncology 09/30/19 Martha White MD [address] [place] [address] [place], [place] [address] journeyman pipefitter 11/01/19 Pedrito Ramirez MD [address] [place] [place] [address] Assigned Heart and Vascular Provider 03/20/20 11/07/20 Rodney Natarajan MD [address] [address] [facility] 195 [place] [address] Assigned Surgical Provider 03/20/20 08/07/21 Luna Simons MD [address] [facility] [address] [facility] 480 [place] [address] Assigned Cancer Care Provider 03/20/20 04/11/20 Martha White MD [address] [place] [address] [address] [place], [place] [address] Assigned Behavioral Health Provider 03/20/20 05/02/20 Mio Mclean MD [address] [facility] 494 [place] [address] Assigned Cancer Care Provider 04/12/20 04/21/20 Ankita Park MD [address] [address] Assigned Behavioral Health Provider 05/03/20 06/29/23 Ankita Park MD [address] [phone] journeyman pipefitter 06/10/20 Mio Mclean MD [address] [facility] [address] [facility] 494 [place] [address] Assigned Cancer Care Provider 05/10/20 07/25/20 Luna Simons MD [address] [facility] 480 [place] [address] Assigned Cancer Care Provider 04/22/20 05/09/20 Luna Simons MD 420 [facility] 480 [place], [place] [address]405 Assigned Cancer Care Provider 07/26/20 06/26/21 Jose Zaragoza, HEALTH AND PHYSICAL EDUCATION TEACHER 6405 [facility] [address] Assigned Heart and Vascular Provider 11/08/20 02/04/22 Mio Mclean MD 420 [facility] 494 [place], [place] [address] Assigned Cancer Care Provider 06/27/21 09/11/21 Luna Simons MD 420 [facility] 480 [place], [place] [address] Assigned Cancer Care Provider 09/12/21 01/18/24 Nadja Hagen MD [facility] Floor 2, [address] [place], [place] [address] Resident Psychiatry 04/01/22 05/13/24 Batool Atkinson, PhD LP [address] [place] [address] [address] [place], [place] 3[address] Psychologist Licensed Mental Health 04/01/22 Prisca Miller MD 6 [facility] 295 [place], [place] [address] Resident Neurology 02/10/23 Jennyfer Steele, DIRECTOR OF FINANCIAL AID SKELP PROCESSOR [address], [address] [place], [place] [address] Nurse Practitioner Psychiatry 02/23/23 Jennyfer Steele APRN SKELP PROCESSOR [address] [place] 1091575 [place], [place] [address] Assigned Behavioral Health Provider 06/30/23 Sadaf Apple NP Assigned PCP 07/21/23 09/18/23 [facility] [address] [place] [address] Assigned PCP 09/19/23 Yamel Saha PA-C [address] 683[address] Assigned Cancer Care Provider 01/19/24 04/19/24 Luna Simons MD [address] 94[address] Assigned Cancer Care Provider 04/20/24 documented as of this encounter
--- OUTSIDE RECORDS SUMMARY | 2024-10-15 17:09 | XMS_ITS | Clinical Summary ---
Author Organization [facility] Address [address] [place] [address] Care Team Providers Care Rayon Winder Name Role Phone Clinic, No Pcp Or Primary Care Provider Unavaila ble Allergies No known active allergies Medications Adderall XR 10 mg Extended-Releas e capsule TAKE 2 CAPSULES BY MOUTH IN THE MORNING AND 1 CAPSULE IN THE AFTERNOON 3 Active traZODone (DESYREL) 50 mg tablet Take two tabs (100mg) by mouth every night and may take an extra half tab (25mg) per night prn insomnia 3 Active DULoxetine (CYMBALTA) 30 mg Delayed-release capsule Take 30 mg by mouth. 3 Active Active Problems Problem Noted Date Diagnosed Date Episode of altered cognition 01/30/2023 Hypoglycemia 01/30/2023 Pyelonephritis, acute 01/30/2023 Encounter for central line care 11/02/2020 Tachycardia 10/29/2019 Anxiety 09/26/2019 Invasive ductal carcinoma of breast, right 09/19 Overview (01/31/2023): Added automatically from request for surgery [id number] Added automatically from request for surgery [id number] Check 10.20 for EOTDMarkus Simons [facility] Added automatically from request for surgery [id number] Check 6.21 for EOTD. Simons [facility] Added automatically from request for surgery [id number] Added automatically from request for surgery [id number] Check 10.20 for EOTD. Ronak [facility] Added automatically from request for surgery [id number] Check 6.21 for EOTD. Vancecyndee [facility] Added automatically from request for surgery [id number] Added automatically from request for surgery [id number] Social History Tobacco Use Types Packs/Day Years Used Date Smoking Tobacco: Some Days Cigarettes Passive Smoke Exposure: Current Smokeless Tobacco: Never Tobacco Cessation:Ready to Q uit: Not Asked; Counseling Given: Not Answered Comments No Sex and Gender Information Value Date Recorded Sex Assigned at Not on file Legal Sex Female 9:13 AM CDT Gender Identity Not on file Sexual Orientation Not on file Obstetrics History Last Filed Vital Signs Vital Sign Reading Time Taken Comments Blood Pressure 149/92 11/09/2023 4:54 PM CDT Pulse 90 11/09/2023 4:54 PM CDT Temperature 36.9 C (98.5 F) 11/09/2023 4:54 PM CDT Respiratory Rate 16 11/09/2023 4:54 PM CDT Oxygen Saturation 99% 11/09/2023 4:54 PM CDT Inhaled Oxygen Concentration - - Weight 56.7 kg (125 lb) 11/09/2023 4:54 PM CDT Height - - Body Mass Index - - Plan of Treatment Health Maintenance Due Date Last Done Comments Tdap 10/16/1990 Depression screening for age 12+ 1991 HIV for age 15-65 10/16/1994 BMI (ht and wt on same day) for age 18+ 10/16/1997 Hepatitis C screening for age 18-79 10/16/1997 Hepatitis B series for 19+ (1 of 3 - 19+ 3-dose series ) 10/16/1998 Pneumococcal series for age 6-49 (1 of 2 - PCV) 1998 Tetanus booster 1999 Pap test for age 21-65 10/16/2000 COVID-19 vaccine series ( - season) Influenza Vaccine (Season Ended) 2025 [place] Care Teams Rayon Winder Relationship Specialty Start Date End Date Clinic, No Pcp Or . PCP - General 01/30/23
--- OUTSIDE RECORDS SUMMARY | 2024-10-15 17:09 | XMS_ITS | Encounter Summary ---
Author Organization [place] Address [address] [place] [address] Care Team Providers Care Career Center Director Name Role Phone Cyndie Eisenberg NP Primary Care Provider + Rodney Natarajan MD Unavailable [phone] Luna Simnos MD Unavailable [phone] Caroline Duque RN Unavailable [phone] Martha White MD Unavailable Pedrito Ramirez MD Unavailable +[phone] Rodney Natarajan MD Unavailable [phone] Luna Simons MD Unavailable Martha White MD Unavailable Mio Mclean MD Unavailable [phone] Ankita Pakr MD Unavailable [phone] Ankita Park MD Unavailable [phone] Mio Mclean MD Unavailable [phone] Luna Simons MD Unavailable Luna Simons MD Unavailable +[phone] Jose Zaragoza NP Unavailable Mio Mclean MD Unavailable [phone] Luna Simons MD Unavailable [phone] Nadja Hagen MD Unavailable +[phone] Batool Atkinson PhD LP Unavailable [phone] Prisca Miller MD Unavailable +[phone] Ivette Jennyferjulieth Rodrigues APRN INFORMATICA Unavailable + Jennyfer Steele APRN INFORMATICA Unavailable + Sadaf Apple NP Unavailable Unavailable [facility] Unavailabl e Yamel Saha PA-C Unavailable +[phone] Luna Simons MD Unavailable +[phone] Encounter Details Date Type Department Care Team (Late st Contact Info) Description 03/25/2020 MyC Medical Advice [facility] [place] [id number] [address] [address] Ankita Park MD [address] [address] Social History Tobacco Use Types Packs/Day [...] have Coronavirus / COVID-19? No / Unsure 03/26/2020 7:38 PM CDT documented as of this encounter Plan of Treatment Upcoming Encounters Date Type Department Care Team (Late st Contact Info) Description 09/15/2025 9:15 AM CDT Ancillary Procedure [facility] Breast Center Imaging [address] 2nd [place] [phone] Luna Simons MD 420 [facility] 480 [place], [place] 5[address] 09/15/2025 10:00 AM CDT Oncology Visit [facility] 9[address] [place] [address] Luna Simons MD 420 [facility] 480 [place], [place] 532905 documented as of this encounter Visit Diagnoses Not on filedocumented in this encounter Additional Health Concerns Infection Onset Date Last Indicated Resolved Time Rule Out COVID-19 01/24/2023 01/24/2023 01/24/2023 10:32 PM CDT documented as of this encounter Care Teams Career Center Director Relationship Specialty Start Date End Date Cyndie Eisenberg, AMANDA [address] [facility] [address] PCP - General 09/25/19 Rodney Natarajan MD [address] [place] [address] 195 [place] [address] General Surgery 09/25/19 Luna Simons MD [address] [place] [address] 480 [place], [place] 7548[address] Hematology 09/25/19 Caroline Duque, RN Specialty Commodity Director Breast Oncology 09/30/19 Martha White MD [address] [place] [address] [address] [place] [address] manager trade 11/01/19 Pedrito Ramirez MD [address] [facility] [address] [place] [address] [place] [address] Assigned Heart and Vascular Provider 03/20/20 11/07/20 Rodney Natarajan MD 420 [place] [facility] 195 [place] [address] Assigned Surgical Provider 03/20/20 08/07/21 Luna Simons MD 420 [place] [facility] 480 [place] [address] Assigned Cancer Care Provider 03/20/20 04/11/20 Martha White MD 2312 S [facility] [place] [address] [place], [place] 991904 Assigned Behavioral Health Provider 03/20/20 05/02/20 Mio Mclean MD 420 [place] [facility] 494 [place], [place] 940155 Assigned Cancer Care Provider 04/12/20 04/21/20 Ankita Park MD 2450 [facility] [address] [place] [phone] Assigned Behavioral Health Provider 05/03/20 06/29/23 Ankita Park MD 2450 [facility] [address] [place] [address] manager trade 06/10/20 Mio Mclean MD 420 [facility] 494 [place] [address] Assigned Cancer Care Provider 05/10/20 07/25/20 Luna Simons MD 420 [facility] [address] [place] [address] Assigned Cancer Care Provider 04/22/20 05/09/20 Luna Simons MD 420 [facility] [address] [place] [address] Assigned Cancer Care Provider 07/26/20 06/26/21 Jose Zaragoza, POTATO SEED CUTTER [address] [place] 3[address]65 Assigned Heart and Vascular Provider 11/08/20 02/04/22 Mio Mclean MD 420 [facility] [address] [place], [place] [address] Assigned Cancer Care Provider 06/27/21 09/11/21 Luna Simons MD 420 [facility] [address] [place], [place] 228655 Assigned Cancer Care Provider 09/12/21 01/18/24 Nadja Hagen MD 2312 S [facility] Floor 2, [address] [place], [place] [address] Resident Psychiatry 04/01/22 05/13/24 Batool Atkinson, PhD LP 2450 [facility] [address] [place], [place] [address] Psychologist Licensed Mental Health 04/01/22 Prisca Miller MD 516 [facility] 295 [place], [place] 321745 Resident Neurology 02/10/23 Jennyfer Steele APRN INFORMATICA [address] [place] [address] [address] [place] [address] Nurse Practitioner Psychiatry 02/23/23 Jennyfer Steele APRN INFORMATICA [address] [place] [address] F275 [place] [address] Assigned Behavioral Health Provider 06/30/23 Sadaf Apple NP Assigned PCP 07/21/23 09/18/23 [facility] [address] [place] [address] Assigned PCP 09/19/23 Yamel Saha PA-C [address] [address] Assigned Cancer Care Provider 01/19/24 04/19/24 Luna Simons MD [address] [address] Assigned Cancer Care Provider 04/20/24 documented as of this encounter
--- OUTSIDE RECORDS SUMMARY | 2024-10-15 17:09 | XMS_ITS | Encounter Summary ---
Author Organization [place] Address [address] [place] [address] Care Team Providers Care Precision Lens Grinder Name Role Phone Cyndie Eisenberg NP Primary Care Provider + Rodney Natarajan MD Unavailable [phone] Luna Simons MD Unavailable [phone] Caroline Duque RN Unavailable [phone] Martha White MD Unavailable Pedrito Ramirez MD Unavailable [phone] Rodney Natarajan MD Unavailable [phone] Luna Simons MD Unavailable Martha White MD Unavailable Mio Mclean MD Unavailable [phone] Ankita Park MD Unavailable [phone] Ankita Park MD Unavailable [phone] Mio Mclean MD Unavailable [phone] Luna Simons MD Unavailable [phone] Luna Simons MD Unavailable Jose Zaragoza NP Unavailable [phone] Mio Mclean MD Unavailable [phone] Luna Simons MD Unavailable [phone] Nadja Hagen MD Unavailable [phone] Batool Atkinson PhD LP Unavailable [phone] Prisca Miller MD Unavailable [phone] Ivette Jennyferjulieth Rodrigues APRN REHABILITATOR Unavailable + Jennyfer Steele APRN REHABILITATOR Unavailable + Sadaf Apple NP Unavailable Unavailable [facility] Unavailabl e Yamel Saha PA-C Unavailable [phone] Luna Simons MD Unavailable [phone] Encounter Details Date Type Department Care Team (Late Contact Info) Description 04/03/2020 [facility]C [facility]ice [facility] [address] [place] [address] Arpita Mohr PA-C [address] [place] [address] Social History Tobacco Use Types Packs/Day [...] have Coronavirus / COVID-19? No / Unsure 04/03/2020 8:05 AM BUSINESS ASSISTANT documented as of this encounter Plan of Treatment Upcoming Encounters Date Type Department Care Team (Late Contact Info) Description 09/15/2025 9:15 AM CDT Ancillary Procedure [facility] Breast Center Imaging [address] [phone] Luna Simons MD 420 [facility] 480 [place], [place] [address] 09/15/2025 10:00 AM CDT Oncology Visit [facility] 909 [facility] [place] [phone] Luna Simons MD 420 [facility] 480 [place], [place] 475665 documented as of this encounter Visit Diagnoses Not on filedocumented in this encounter Additional Health Concerns Infection Onset Date Last Indicated Resolved Time Rule Out COVID-19 01/24/2023 01/24/2023 01/24/2023 10:32 PM CDT documented as of this encounter Care Teams Precision Lens Grinder Relationship Specialty Start Date End Date Cyndie Eisenberg NP [address] [place] [id number] PCP - General 09/25/19 Rodney Natarajan MD [address] [place] [address] 195 [place], [place] [address] General Surgery 09/25/19 Luna Simons MD [address] [place] [address] 480 [place], [place] 26[address] Hematology 09/25/19 Caroline Duque, RN Specialty Alcohol Still Operator Breast Oncology 09/30/19 Martha White MD [address] [place] [address] [address] [place] [address] track grinder 11/01/19 Pedrito Ramirez MD 6405 [facility] [address] [place] [address] Assigned Heart and Vascular Provider 03/20/20 11/07/20 Rodney Natarajan MD 420 [place] [facility] 195 [place] [address] Assigned Surgical Provider 03/20/20 08/07/21 Luna Simons MD 420 [facility] 480 [place] [address] Assigned Cancer Care Provider 03/20/20 04/11/20 Martha White MD [address] [place] [address] [address] [place], [place] 9[address]234 Assigned Behavioral Health Provider 03/20/20 05/02/20 Mio Mclean MD 420 [facility] 494 [place], [place] 163945 Assigned Cancer Care Provider 04/12/20 04/21/20 Ankita Park MD 2450 [facility] [address] [phone] Assigned Behavioral Health Provider 05/03/20 06/29/23 Ankita Park MD [facility] [address] [phone] track grinder 06/10/20 Mio Mclean MD 420 [facility] 494 [place] [address] Assigned Cancer Care Provider 05/10/20 07/25/20 Luna Simons MD 420 [facility] 480 [place] [address] Assigned Cancer Care Provider 04/22/20 05/09/20 Luna Simons MD 420 [facility] 480 [place] [address] Assigned Cancer Care Provider 07/26/20 06/26/21 Jose Zaragoza, CONCRETE PIPE PLANT SUPERVISOR 6405 [facility] [place] [id number] Assigned Heart and Vascular Provider 11/08/20 02/04/22 Mio Mclean MD 420 [facility] 494 [place], [place] [address]295 Assigned Cancer Care Provider 06/27/21 09/11/21 Luna Simons MD 420 [facility] 480 [place] [address] Assigned Cancer Care Provider 09/12/21 01/18/24 Nadja Hagen MD [address] 2, [address] [place], [place] [address] Resident Psychiatry 04/01/22 05/13/24 Batool Atkinson, PhD LP [address] [place], [place] 0[address] Psychologist Licensed Mental Health 04/01/22 Prisca Miller MD 516 [facility] 295 [place], [place] [address] Resident Neurology 02/10/23 Jennyfer Steele APRN REHABILITATOR 2312 S [facility] [address] [place], [place] [address] Nurse Practitioner Psychiatry 02/23/23 Jennyfer Steele APRN REHABILITATOR 2312 S [facility] [address] [place], [place] 632434 Assigned Behavioral Health Provider 06/30/23 Sadaf Apple NP Assigned PCP 07/21/23 09/18/23 [facility] [address] [place] [address] Assigned PCP 09/19/23 Yamel Saha PA-C [address] [place] [address] 288545 Assigned Cancer Care Provider 01/19/24 04/19/24 Luna Simons MD [address] [place] [address] 740685 Assigned Cancer Care Provider 04/20/24 documented as of this encounter
--- OUTSIDE RECORDS SUMMARY | 2024-10-15 17:09 | XMS_ITS | Encounter Summary ---
Author Organization [place] Address [address] [place] [address] Care Team Providers Care Printed Products Assembler Name Role Phone Cyndie Eisenberg NP Primary Care Provider + Rodney Natarajan MD Unavailable [phone] Luna Simons MD Unavailable Caroline Duque RN Unavailable [phone] Martha White MD Unavailable Pedrito Ramirez MD Unavailable Rodney Natarajan MD Unavailable [phone] Luna Simons MD Unavailable Martha White MD Unavailable Mio Mclean MD Unavailable [phone] Ankita Park MD Unavailable [phone] Ankita Park MD Unavailable [phone] Mio Mclean MD Unavailable [phone] Luna Simons MD Unavailable Luna Simons MD Unavailable Jose Zaragoza NP Unavailable [phone] Mio Mclean MD Unavailable [phone] Luna Simons MD Unavailable [phone] Nadja Hagen MD Unavailable [phone] Batool Atkinson PhD LP Unavailable [phone] Prisca Miller MD Unavailable [phone] Jennyfer Steele APRN EDUCATIONAL PROGRAM ASSISTANT Unavailable + Jennyfer Steele APRN EDUCATIONAL PROGRAM ASSISTANT Unavailable + Sadaf Apple NP Unavailable Unavailable [facility] Unavailabl e Yamel Saha PA-C Unavailable +[phone] Luna Simons MD Unavailable [phone] Reason for Visit * Reason Onset Date Comments Clinic Care Coordination - Follow-up 04/08/2020 Med orders Encounter Details Date Type Department Care Team (Late st Contact Info) Description 04/08/2020 MyC Medical Advice [facility] Mental Health & Addiction [place] [id number] [address] [address] Ankita Park MD [address] [place] [address] Clinic Care Coordination - Follow-up (Med ... Social History Tobacco Use Types Packs/Day Years [...] COVID-19? No / Unsure 04/03/2020 8:05 AM WINCHMAN/CRANE OPERATOR documented as of this encounter Miscellaneous Notes * Telephone Encounter - Alan Nino, RN - 04/08/2020 12:27 PM CST Tile Mason received confirmation from Dr. Park to order increase cymbalta to 90 with a 60mg and 30mg, send in one month and 2 RF please? Tile Mason e-prescribed updated orders to requested pharmacy. Routed message to pt via [employer]. HMAN/CRANE OPERATOR documented in this encounter Plan of Treatment Upcoming Encounters Date Type Department Care Team (Late st Contact Info) Description 09/15/2025 9:15 AM CDT Ancillary Procedure [facility] Breast Center Imaging [place] 909 [facility] 2nd [place] [address] Luna Simons MD [address] [place] [address] 480 [place], [place] [address] 09/15/2025 10:00 AM CDT Oncology Visit [facility] 909 [place] [phone] Luna Simons MD [address] [place] [address] documented as of this encounter Visit Diagnoses Diagnosis Anxiety- Primary Anxiety state, unspecified documented in this encounter Additional Health Concerns Infection Onset Date Last Indicated Resolved Time Rule Out COVID-19 01/24/2023 01/24/2023 01/24/2023 10:32 PM CDT documented as of this encounter Care Teams Printed Products Assembler Relationship Specialty Start Date End Date Cyndie Eisenberg, CAN PILER [address] [place] [address] PCP - General 09/25/19 Rodney Natarajan MD [address] [place] [address] 195 [place], [place] [address] General Surgery 09/25/19 Luna Simons MD 420 [facility] 480 [place] [address] Hematology 09/25/19 Caroline Duque, RN Specialty Slot Ambassador Breast Oncology 09/30/19 Martha White MD 2312 [address] [facility] [address] [place], [place] 407[address] automotive quality engineer 11/01/19 Pedrito Ramirez MD 6405 [facility] [address] [place], [place] [address] Assigned Heart and Vascular Provider 03/20/20 11/07/20 Rodney Natarajan MD 420 [facility] 195 [place], [place] [address] Assigned Surgical Provider 03/20/20 08/07/21 Luna Simons MD 420 [facility] 480 [place], [place] [address] Assigned Cancer Care Provider 03/20/20 04/11/20 Martha White MD [address] [place] [address] [address] [place] [address] Assigned Behavioral Health Provider 03/20/20 05/02/20 Mio Mclean MD 420 [facility] 494 [place], [place] 4579[address] Assigned Cancer Care Provider 04/12/20 04/21/20 Ankita Park MD [facility] [address] [phone] Assigned Behavioral Health Provider 05/03/20 06/29/23 Ankita Park MD 2450 [facility] [address] [place] [phone] automotive quality engineer 06/10/20 Mio Mclean MD 420 [facility] 494 [place] [address] Assigned Cancer Care Provider 05/10/20 07/25/20 Luna Simons MD 420 [facility] 480 [place] [address] Assigned Cancer Care Provider 04/22/20 05/09/20 Luna Simons MD [address] [place] [address] 480 [place] [address] Assigned Cancer Care Provider 07/26/20 06/26/21 Jose Zaragoza, CAN PILER 6405 [facility] [place] [place] [address] Assigned Heart and Vascular Provider 11/08/20 02/04/22 Mio Mclean MD [address] [address] Assigned Cancer Care Provider 06/27/21 09/11/21 Luna Simons MD 420 [facility] 480 [place] [address] Assigned Cancer Care Provider 09/12/21 01/18/24 Nadja Hagen MD [facility] [address] 2, [address] [place], [place] [address] Resident Psychiatry 04/01/22 05/13/24 Batool Atkinson, PhD LP 2450 [facility] [address] [place], [place] [address] Psychologist Licensed Mental Health 04/01/22 Prisca Miller MD 516 [facility] 295 [place], [place] [address] Resident Neurology 02/10/23 Jennyfer Steele APRN EDUCATIONAL PROGRAM ASSISTANT [facility] S [facility] [place] [address] [place], [place] [address] Nurse Practitioner Psychiatry 02/23/23 Jennyfer Steele APRN EDUCATIONAL PROGRAM ASSISTANT [facility] [address] [place] [address] [place], [place] 29[address] Assigned Behavioral Health Provider 06/30/23 Sadaf Apple NP Assigned PCP 07/21/23 09/18/23 [facility] [id number] [place] [address] Assigned PCP 09/19/23 Yamel Saha PA-C 420 [facility] 480 [place], [place] [address] Assigned Cancer Care Provider 01/19/24 04/19/24 Luna Simons MD 420 [facility] 480 [place], [place] [address] Assigned Cancer Care Provider 04/20/24 documented as of this encounter
--- OUTSIDE RECORDS SUMMARY | 2024-10-15 17:09 | XMS_ITS | Encounter Summary ---
Author Organization [facility] Address [address] [place] [address] Care Team Providers Care Administrative Sales Assistant Name Role Phone Cyndie Eisenberg NP Primary Care Provider + Rodney Natarajan MD Unavailable [phone] Luna Simons MD Unavailable [phone] Caroline Duque RN Unavailable [phone] Martha White MD Unavailable Pedrito Ramirez MD Unavailable +[phone] Rodney Natarajan MD Unavailable Luna Simons MD Unavailable Martha White MD Unavailable [phone] Mio Mclean MD Unavailable Ankita Park MD Unavailable +[phone] Ankita Park MD Unavailable [phone] Mio Mclean MD Unavailable [phone] Luna Simons MD Unavailable Luna Simons MD Unavailable Jose Zaragoza NP Unavailable [phone] Mio Mclean MD Unavailable +[phone] Luna Simons MD Unavailable +[phone] Nadja Hagen MD Unavailable [phone] Batool Atkinson PhD LP Unavailable [phone] Prisca Miller MD Unavailable +[phone] Ivette Jennyferjulieth Rodrigues APRN DISK RECOATER Unavailable + Jennyfer Steele APRN DISK RECOATER Unavailable + Sadaf Apple NP Unavailable Unavailable [facility] Unavailabl e Yamel Saha PA-C Unavailable +[phone] Luna Simons MD Unavailable +[phone] Encounter Details Date Type Department Care Team (Late st Contact Info) Description 03/30/2020 MyC Medical Advice [facility] [place] [id number] [address] [address] Ankita Park MD [address] [address] Social History Tobacco Use Types [...] have Coronavirus / COVID-19? No / Unsure 04/02/2020 2:29 PM TRACTOR TRAILER OPERATOR documented as of this encounter Plan of Treatment Upcoming Encounters Date Type Department Care Team (Late st Contact Info) Description 09/15/2025 9:15 AM CDT Ancillary Procedure [facility] Breast Center Imaging [address] 2nd [place] [phone] Luna Simons MD 420 [facility] 480 [place], [place] 8[address]195 09/15/2025 10:00 AM CDT Oncology Visit [facility] 909 [place] [address] Luna Simons MD 420 [facility] 480 [place], [place] 509075 documented as of this encounter Visit Diagnoses Not on filedocumented in this encounter Additional Health Concerns Infection Onset Date Last Indicated Resolved Time Rule Out COVID-19 01/24/2023 01/24/2023 01/24/2023 10:32 PM CDT documented as of this encounter Care Teams Administrative Sales Assistant Relationship Specialty Start Date End Date Cyndie Eisenberg NP [address] [place] [address] PCP - General 09/25/19 Rodney Natarajan MD [address] [place] [address] 195 [place] [address] General Surgery 09/25/19 Luna Simons MD [address] [place] [address] 480 [place], [place] 484945 Hematology 09/25/19 Caroline Duque, RN Specialty Hospitality Services Manager Breast Oncology 09/30/19 Martha White MD [address] [place] [address] [address] [place] [address] practice assistant 11/01/19 Pedrito Ramirez MD [address] [place] [address] [place] [address] Assigned Heart and Vascular Provider 03/20/20 11/07/20 Rodney Natarajan MD 420 [facility] 195 [place] [address] Assigned Surgical Provider 03/20/20 08/07/21 Luna Simons MD 420 [facility] 480 [place] [address] Assigned Cancer Care Provider 03/20/20 04/11/20 Martha White MD [address] [place] [address] [address] [place], [place] 486424 Assigned Behavioral Health Provider 03/20/20 05/02/20 Mio Mclean MD 420 [place] [facility] 494 [place], [place] 637825 Assigned Cancer Care Provider 04/12/20 04/21/20 Ankita Park MD 2450 [facility] [place] [phone] Assigned Behavioral Health Provider 05/03/20 06/29/23 Ankita Park MD 2450 [facility] [address] [address] practice assistant 06/10/20 Mio Mclean MD 420 [place] [facility] 494 [place] [address] Assigned Cancer Care Provider 05/10/20 07/25/20 Luna Simons MD 420 [facility] 480 [place] [address] Assigned Cancer Care Provider 04/22/20 05/09/20 Luna Simons MD 420 [facility] 480 [place] [address] Assigned Cancer Care Provider 07/26/20 06/26/21 Jose Zaragoza, DIRECTOR OF ENTERPRISE ARCHITECTURE [address] [place] [address] Assigned Heart and Vascular Provider 11/08/20 02/04/22 Mio Mclean MD 420 [facility] 494 [place] [address] Assigned Cancer Care Provider 06/27/21 09/11/21 Luna Smions MD 420 [facility] 480 [place], [place] 455555 Assigned Cancer Care Provider 09/12/21 01/18/24 Nadja Hagen MD [address] Floor 2, [address] [place], [place] 330[address] Resident Psychiatry 04/01/22 05/13/24 Batool Atkinson, PhD LP 2450 [facility] [address] [place], [place] [address] Psychologist Licensed Mental Health 04/01/22 Prisca Miller MD 516 [facility] 295 [place], [place] 277765 Resident Neurology 02/10/23 Jennyfer Steele APRN DISK RECOATER [address] [place] [address] [address]275 [place] [address] Nurse Practitioner Psychiatry 02/23/23 Jennyfer Steele APRN DISK RECOATER [address] [place] [address] [address]275 [place] [address] Assigned Behavioral Health Provider 06/30/23 Sadaf Apple NP Assigned PCP 07/21/23 09/18/23 [facility] [id number] [place] [address] Assigned PCP 09/19/23 Yamel Saha PA-C [address] 885625 Assigned Cancer Care Provider 01/19/24 04/19/24 Luna Simons MD [address] [address] Assigned Cancer Care Provider 04/20/24 documented as of this encounter
--- OUTSIDE RECORDS SUMMARY | 2024-10-15 17:09 | XMS_ITS | Encounter Summary ---
Author Organization [facility] Address [address] [place] [address] Care Team Providers Care Flooring Installer Name Role Phone Cyndie Eisenberg NP Primary Care Provider + Rodney Natarajan MD Unavailable [phone] Luna Simons MD Unavailable Caroline Duque RN Unavailable [phone] Martha White MD Unavailable Pedrito Ramirez MD Unavailable [phone] Rodney Natarajan MD Unavailable [phone] Luna Simons MD Unavailable Martha White MD Unavailable Mio Mclean MD Unavailable [phone] Ankita Park MD Unavailable [phone] Ankita Park MD Unavailable [phone] Mio Mclean MD Unavailable [phone] Luna Simons MD Unavailable Luna Simons MD Unavailable Jose Zaragoza NP Unavailable Mio Mclean MD Unavailable [phone] Luna Simons MD Unavailable [phone] Nadja Hagen MD Unavailable [phone] Batool Atkinson PhD LP Unavailable [phone] Prisca Miller MD Unavailable [phone] Jennyfer Steele ORDER PACKER OR PACKAGER CAT CRACKER OPERATOR Unavailable + IvetteJennyfer APRN CAT CRACKER OPERATOR Unavailable + Sadaf Apple NP Unavailable Unavailable Clinic - [facility] Unavailabl e Yamel Saha PA-C Unavailable [phone] Luna Simons MD Unavailable [phone] Encounter Details Date Type Department Care Team (Late st Contact Info) Description 11/26/2019 MyC Medical Advice [facility] [address] [place] [address] Luna Simons MD [address] [place] [address] Social History Tobacco Use Types Packs/Day [...] Ancillary Procedure [facility] Breast [facility] Imaging [place] [address] [place] [address] 2nd [place] [address] Luna Simons MD [address] [place] [address] 09/15/2025 10:00 AM CDT Oncology Visit [facility] 909 [place] [phone] Luna Simons MD 420 [facility] 480 [place] [address] documented as of this encounter Visit Diagnoses Not on filedocumented in this encounter Additional Health Concerns Infection Onset Date Last Indicated Resolved Time Rule Out COVID-19 01/24/2023 01/24/2023 01/24/2023 10:32 PM CDT documented as of this encounter Care Teams Flooring Installer Relationship Specialty Start Date End Date Cyndie Eisenberg RN MDS [address] [place] [address] PCP - General 09/25/19 Rodney Natarajan MD 420 [facility] 195 [place] [address] General Surgery 09/25/19 Luna Simons MD [address] [place] [address] 480 [place] [address] Hematology 09/25/19 Caroline Duque, RN Specialty Home School Liaison Officer Breast Oncology 09/30/19 Martha White MD [address] [place] [address] [place], [place] 321184 store sales leader 11/01/19 Pedrito Ramirez MD [address] [place] [place] [address] Assigned Heart and Vascular Provider 03/20/20 11/07/20 Rodney Natarajan MD 420 [place] [facility] 195 [place] [address] Assigned Surgical Provider 03/20/20 08/07/21 Luna Simons MD 420 [place] [facility] 480 [place] [address] Assigned Cancer Care Provider 03/20/20 04/11/20 Martha White MD [address] [place] [address] [address] [place], [place] 981364 Assigned Behavioral Health Provider 03/20/20 05/02/20 Mio Mclean MD 420 [place] [facility] 494 [place] [address] Assigned Cancer Care Provider 04/12/20 04/21/20 Ankita Park MD [address] [address] Assigned Behavioral Health Provider 05/03/20 06/29/23 Ankita Park MD [address] [phone] store sales leader 06/10/20 Mio Mclean MD 420 [place] [facility] 494 [place] [address] Assigned Cancer Care Provider 05/10/20 07/25/20 Luna Simons MD 420 [place] [facility] 480 [place] [address] Assigned Cancer Care Provider 04/22/20 05/09/20 Luna Simons MD 420 [facility] 480 [place], [place] [address] Assigned Cancer Care Provider 07/26/20 06/26/21 Jose Zaragoza, RN MDS 6405 [facility] [place] [place] 507675 Assigned Heart and Vascular Provider 11/08/20 02/04/22 Mio Mclean MD 420 [facility] 494 [place], [place] 191325 Assigned Cancer Care Provider 06/27/21 09/11/21 Luna Simons MD 420 [facility] 480 [place], [place] 830455 Assigned Cancer Care Provider 09/12/21 01/18/24 Nadja Hagen MD [facility] Floor 2, [address] [place], [place] 346694 Resident Psychiatry 04/01/22 05/13/24 Batool Atkinson, PhD LP [address] [place] [address] [address] [place], [place] 6[address]174 Psychologist Licensed Mental Health 04/01/22 Prisca Miller MD 6 [facility] 295 [place], [place] 872765 Resident Neurology 02/10/23 Jennyfer Steele, ORDER PACKER OR PACKAGER CAT CRACKER OPERATOR [address] [place] [address] [place], [place] 7[address]64 Nurse Practitioner Psychiatry 02/23/23 Jennyfer Steele APRN CAT CRACKER OPERATOR 2312 [place] 8157275 [place], [place] 527764 Assigned Behavioral Health Provider 06/30/23 Sadaf Apple NP Assigned PCP 07/21/23 09/18/23 [facility] [address] [place] [address] Assigned PCP 09/19/23 Yamel Saha PA-C [address] 152215 Assigned Cancer Care Provider 01/19/24 04/19/24 Luna Simons MD [address] [address] Assigned Cancer Care Provider 04/20/24 documented as of this encounter
--- OUTSIDE RECORDS SUMMARY | 2024-10-15 17:09 | XMS_ITS | Encounter Summary ---
Author Organization [facility] Address [address] [place] [address] Care Team Providers Care Solid Tire Finisher Name Role Phone Cyndie Eisenberg NP Primary Care Provider + Rodney Natarajan MD Unavailable Luna Simons MD Unavailable Caroline Duque RN Unavailable [phone] Martha White MD Unavailable Pedrito Ramirez MD Unavailable [phone] Rodney Natarajan MD Unavailable [phone] Luna Simons MD Unavailable Martha White MD Unavailable Mio Mclean MD Unavailable [phone] Ankita Park MD Unavailable [phone] Ankita Park MD Unavailable [phone] Mio Mclean MD Unavailable [phone] Luna Simons MD Unavailable Luna Simons MD Unavailable Jose Zaragoza NP Unavailable Mio Mclean MD Unavailable [phone] Luna Simons MD Unavailable [phone] Nadja Hagen MD Unavailable +[phone] Batool Atkinson PhD LP Unavailable [phone] Prisca Miller MD Unavailable [phone] Ramin Steelen Ravi HEEL SHAPER SOFTWARE CONFIGURATION SPECIALIST Unavailable + Jennyfer Steele APRN SOFTWARE CONFIGURATION SPECIALIST Unavailable + Sadaf Apple NP Unavailable Unavailable Clinic - [facility] Unavailabl e Yamel Saha PA-C Unavailable [phone] Luna Simons MD Unavailable [phone] Encounter Details Date Type Department Care Team (Late st Contact Info) Description 02/14/2020 [facility] Medical Advice [facility] 9 [place] [address] [facility] Social History Tobacco Use Types Packs/Day Years [...] [facility] Breast Center Imaging [facility] 909 [facility] 2nd [place] [address] Luna Simons MD 420 [facility] 480 [place] [address] 09/15/2025 10:00 AM CDT Oncology Visit [facility] 909 [facility] [address] Luna Simons MD 420 [facility] 480 [place], [place] 681015 documented as of this encounter Visit Diagnoses Not on filedocumented in this encounter Additional Health Concerns Infection Onset Date Last Indicated Resolved Time Rule Out COVID-19 01/24/2023 01/24/2023 01/24/2023 10:32 PM CDT documented as of this encounter Care Teams Solid Tire Finisher Relationship Specialty Start Date End Date Cyndie Eisenberg BENEFITS TECHNICIAN [address] [place] [address] PCP - General 09/25/19 Rodney Natarajan MD [address] [place] [address] 195 [place], [place] [address]275 General Surgery 09/25/19 Luna Simons MD [address] [place] [address] 480 [place], [place] [address] Hematology 09/25/19 Caroline Duque, RN Specialty Claims Auditor Breast Oncology 09/30/19 Martha White MD [address] [place] [address] [place] [address] social insurance adviser 11/01/19 Pedrito Ramirez MD [address] [place] [place] [address] Assigned Heart and Vascular Provider 03/20/20 11/07/20 Rodney Natarajan MD [address] [place] [facility] 195 [place] [address] Assigned Surgical Provider 03/20/20 08/07/21 Luna Simons MD [address] [place] [facility] 480 [place] [address] Assigned Cancer Care Provider 03/20/20 04/11/20 Martha White MD [address] [place] [address] [address] [place], [place] 721064 Assigned Behavioral Health Provider 03/20/20 05/02/20 Mio Mclean MD 420 [place] [facility] 494 [place] [address] Assigned Cancer Care Provider 04/12/20 04/21/20 Ankita Park MD [facility] [address] [address] Assigned Behavioral Health Provider 05/03/20 06/29/23 Ankita Park MD [facility] [address] [phone] social insurance adviser 06/10/20 Mio Mclean MD 420 [place] [facility] 494 [place] [address] Assigned Cancer Care Provider 05/10/20 07/25/20 Luna Simons MD 420 [place] [facility] 480 [place] [address] Assigned Cancer Care Provider 04/22/20 05/09/20 Luna Simons MD 420 [facility] 480 [place] [address] Assigned Cancer Care Provider 07/26/20 06/26/21 Jose Zaragoza, BENEFITS TECHNICIAN 6405 [facility] [place] 59[address] Assigned Heart and Vascular Provider 11/08/20 02/04/22 Mio Mcelan MD 420 [facility] 494 [place], [place] [address]385 Assigned Cancer Care Provider 06/27/21 09/11/21 Luna Simons MD 420 [facility] 480 [place], [place] 9[address]375 Assigned Cancer Care Provider 09/12/21 01/18/24 Nadja Hagen MD [facility] Floor 2, [address] [place], [place] [address] Resident Psychiatry 04/01/22 05/13/24 Batool Atkinson, PhD LP [address] [place] [address] [address] [place], [place] 513324 Psychologist Licensed Mental Health 04/01/22 Prisca Miller MD 516 [facility] 295 [place], [place] 95[address]95 Resident Neurology 02/10/23 Jennyfer Steele APRN SOFTWARE CONFIGURATION SPECIALIST [address] [place] [address] [place], [place] 294064 Nurse Practitioner Psychiatry 02/23/23 Jennyfer Steele APRN SOFTWARE CONFIGURATION SPECIALIST [address] [place] [address] [address] [place] [address] Assigned Behavioral Health Provider 06/30/23 Sadaf Apple NP Assigned PCP 07/21/23 09/18/23 [facility] [address] [place] [address] Assigned PCP 09/19/23 Yamel Saha PA-C [address] [place] [address] 870365 Assigned Cancer Care Provider 01/19/24 04/19/24 Luna Simons MD [address] [address] Assigned Cancer Care Provider 04/20/24 documented as of this encounter
--- OUTSIDE RECORDS SUMMARY | 2024-10-15 17:09 | XMS_ITS | Encounter Summary ---
Author Organization [facility] Address [address] [place] [address] Care Team Providers Care Featherer Name Role Phone Cyndie Eisenberg NP Primary Care Provider + Rodney Natarajan MD Unavailable [phone] Luna Simons MD Unavailable [phone] Caroline Duque RN Unavailable [phone] Martha White MD Unavailable Pedrito Ramirez MD Unavailable [phone] Rodney Natarajan MD Unavailable [phone] Luna Simons MD Unavailable Martha White MD Unavailable Mio Mclean MD Unavailable [phone] Ankita Park MD Unavailable [phone] Ankita Park MD Unavailable [phone] Mio Mclean MD Unavailable [phone] Luna Simons MD Unavailable Luna Simons MD Unavailable Jose Zaragoza NP Unavailable Mio Mclean MD Unavailable [phone] Luna Simons MD Unavailable [phone] Nadja Hagen MD Unavailable +[phone] Batool Atkinson PhD LP Unavailable [phone] Prisca Miller MD Unavailable [phone] Jennyfer Steele SMALL ENGINE TECHNICIAN PROPOSITION PLAYER Unavailable + IvetteJennyfer APRN PROPOSITION PLAYER Unavailable + Sadaf Apple NP Unavailable Unavailable Clinic - [facility] Unavailabl e Yamel Saha PA-C Unavailable +[phone] Luna Simons MD Unavailable +[phone] Encounter Details Date Type Department Care Team (Late st Contact Info) Description 12/03/[address] [facility] [address] [place] [address] Luna Simons MD [address] [place] [address] Social History Tobacco Use Types Packs/Day [...] have Coronavirus / COVID-19? No / Unsure 12/03/2019 12:40 PM CDT documented as of this encounter Plan of Treatment Upcoming Encounters Date Type Department Care Team (Late st Contact Info) Description 09/15/2025 9:15 AM CDT Ancillary Procedure [facility] Breast Center Imaging [place] [address] [place] [address] 2nd [place] [address] Luna Simons MD [address] [address] 09/15/2025 10:00 AM CDT Oncology Visit [facility] 909 [place] [phone] Luna Simons MD 420 [facility] 480 [place] [address] documented as of this encounter Visit Diagnoses Not on filedocumented in this encounter Additional Health Concerns Infection Onset Date Last Indicated Resolved Time Rule Out COVID-19 01/24/2023 01/24/2023 01/24/2023 10:32 PM CDT documented as of this encounter Care Teams Featherer Relationship Specialty Start Date End Date Cyndie Eisenberg FURNACE WORKER [address] [place] [address] PCP - General 09/25/19 Rodney Natarajan MD 420 [facility] 195 [place] [address] General Surgery 09/25/19 Luna Simons MD [address] [place] [address] 480 [place] [address] Hematology 09/25/19 Caroline Duque, RN Specialty Soap Worker Breast Oncology 09/30/19 Martha White MD [address] [place] [address] [place], [place] 897024 communication assistant 11/01/19 Pedrito Ramirez MD [address] [place] [place] [address] Assigned Heart and Vascular Provider 03/20/20 11/07/20 Rodney Natarajan MD 420 [place] [facility] 195 [place] [address] Assigned Surgical Provider 03/20/20 08/07/21 Luna Simons MD 420 [place] [facility] 480 [place] [address] Assigned Cancer Care Provider 03/20/20 04/11/20 Martha White MD [address] [place] [address] [address] [place], [place] 268094 Assigned Behavioral Health Provider 03/20/20 05/02/20 Mio Mclean MD 420 [place] [facility] 494 [place] [address] Assigned Cancer Care Provider 04/12/20 04/21/20 Ankita Park MD [address] [address] Assigned Behavioral Health Provider 05/03/20 06/29/23 Ankita Park MD [address] [phone] communication assistant 06/10/20 Mio Mclean MD 420 [place] [facility] 494 [place] [address] Assigned Cancer Care Provider 05/10/20 07/25/20 Luna Simons MD 420 [place] [facility] 480 [place] [address] Assigned Cancer Care Provider 04/22/20 05/09/20 Luna Simons MD 420 [facility] 480 [place], [place] 6[address] Assigned Cancer Care Provider 07/26/20 06/26/21 Jose Zaragoza, FURNACE WORKER 6405 [facility] [place] 2[address] Assigned Heart and Vascular Provider 11/08/20 02/04/22 Mio Mclean MD 420 [facility] 494 [place], [place] [address]605 Assigned Cancer Care Provider 06/27/21 09/11/21 Luna Simons MD 420 [facility] 480 [place], [place] 0[address]65 Assigned Cancer Care Provider 09/12/21 01/18/24 Nadja Hagen MD [facility] Floor 2, [address] [place], [place] 04[address] Resident Psychiatry 04/01/22 05/13/24 Batool Atkinson, PhD LP [address] [place] [address] [address] [place], [place] 239394 Psychologist Licensed Mental Health 04/01/22 Prisca Miller MD 6 [facility] 295 [place], [place] 317605 Resident Neurology 02/10/23 Jennyfer Steele, SMALL ENGINE TECHNICIAN PROPOSITION PLAYER [address] [place] [address] [place], [place] 97[address] Nurse Practitioner Psychiatry 02/23/23 Jennyfer Steele APRN PROPOSITION PLAYER [address] [place] 9558075 [place], [place] [address]84 Assigned Behavioral Health Provider 06/30/23 Sadaf Apple NP Assigned PCP 07/21/23 09/18/23 [facility] [address] [place] [address] Assigned PCP 09/19/23 Yamel Saha PA-C [address] 6530[address] Assigned Cancer Care Provider 01/19/24 04/19/24 Luna Simons MD [address] 8587[address] Assigned Cancer Care Provider 04/20/24 documented as of this encounter
--- OUTSIDE RECORDS SUMMARY | 2024-10-15 17:09 | XMS_ITS | Encounter Summary ---
Author Organization [place] Address [address] [place] [address] Care Team Providers Care Booky Name Role Phone Cyndie Eisenberg NP Primary Care Provider + Rodney Natarajan MD Unavailable [phone] Luna Simons MD Unavailable [phone] Caroline Duque RN Unavailable [phone] Martha White MD Unavailable Pedrito Ramirez MD Unavailable [phone] Rodney Natarajan MD Unavailable [phone] Luna Simons MD Unavailable Martha White MD Unavailable Mio Mclean MD Unavailable [phone] Ankita Park MD Unavailable [phone] Ankita Park MD Unavailable [phone] Mio Mclean MD Unavailable [phone] Luna Simons MD Unavailable [phone] Luna Simons MD Unavailable +[phone] Jose Zaragoza NP Unavailable [phone] Mio Mclean MD Unavailable [phone] Luna Simons MD Unavailable [phone] Nadja Hagen MD Unavailable +[phone] Batool Atkinson PhD LP Unavailable [phone] Prisca Miller MD Unavailable [phone] Ramin Steelen Ravi KEVIN WAITER/WAITRESS ECONOMY CLASS Unavailable + Jennyfer Steele APRN WAITER/WAITRESS ECONOMY CLASS Unavailable + Sadaf Apple NP Unavailable Unavailable Clinic - [facility] Unavailabl e Yamel Saha PA-C Unavailable +[phone] Luna Simons MD Unavailable +[phone] Encounter Details Date Type Department Care Team (Late st Contact Info) Description 12/03/2019 MyC Medical Advice [facility] [address] [place] [address] Caroline Duque, RN Social History Tobacco Use [...] Procedure [facility] Imaging [address] 2nd [place] [address] Luna Simons MD [address] [place] [address] 568145 09/15/2025 10:00 AM CDT Oncology Visit [facility] 909 [place] [phone] Luna Simons MD [address] [phone] documented as of this encounter Visit Diagnoses Not on filedocumented in this encounter Additional Health Concerns Infection Onset Date Last Indicated Resolved Time Rule Out COVID-19 01/24/2023 01/24/2023 01/24/2023 10:32 PM CDT documented as of this encounter Care Teams Booky Relationship Specialty Start Date End Date Cyndie Eisenberg NP [address] [place] [address] PCP - General 09/25/19 Rodney Natarajan MD [address] [place] [address] 339035 General Surgery 09/25/19 Luna Simons MD [address] [place] [address] [phone] Hematology 09/25/19 Caroline Duque, RN Specialty Motorcycle Deliverer Breast Oncology 09/30/19 Martha White MD [address] [place] [address] [address] [place] [address] rn liaison 11/01/19 Pedrito Ramirez MD [address] [facility] [address] [place] [address] Assigned Heart and Vascular Provider 03/20/20 11/07/20 Rodney Natarajan MD [address] [place] [address] Assigned Surgical Provider 03/20/20 08/07/21 Luna Simons MD 420 [facility] 480 [place] [address] Assigned Cancer Care Provider 03/20/20 04/11/20 Martha White MD [address] [place] [address] [address] [place] [address] Assigned Behavioral Health Provider 03/20/20 05/02/20 Mio Mclean MD 420 [facility] 494 [place] [address] Assigned Cancer Care Provider 04/12/20 04/21/20 Ankita Park MD [address] [place] [phone] Assigned Behavioral Health Provider 05/03/20 06/29/23 Ankita Park MD [address] [place] [phone] rn liaison 06/10/20 Mio Mclean MD 420 [facility] 494 [place] [address] Assigned Cancer Care Provider 05/10/20 07/25/20 Luna Simons MD 420 [facility] 480 [place] [address] Assigned Cancer Care Provider 04/22/20 05/09/20 Luna Simons MD 420 [facility] [address] [place] [address] Assigned Cancer Care Provider 07/26/20 06/26/21 Jose Zaragoza, MEAT PRODUCTS DEMONSTRATOR [address] [facility] [place] 611415 Assigned Heart and Vascular Provider 11/08/20 02/04/22 Mio Mclean MD 420 [facility] 494 [place], [place] 657575 Assigned Cancer Care Provider 06/27/21 09/11/21 Luna Simons MD 420 [facility] 480 [place], [place] 9[address]265 Assigned Cancer Care Provider 09/12/21 01/18/24 Nadja Hagen MD [address] [facility] Floor 2, [address] [place], [place] [address] Resident Psychiatry 04/01/22 05/13/24 Batool Atkinson, PhD LP [address] [facility] [address] [place], [place] 179684 Psychologist Licensed Mental Health 04/01/22 Prisca Miller MD 516 [facility] 295 [place], [place] 601945 Resident Neurology 02/10/23 Jennyfer Steele APRN WAITER/WAITRESS ECONOMY CLASS [address] [place] [address] [place] [address] Nurse Practitioner Psychiatry 02/23/23 Jennyfer Steele APRN WAITER/WAITRESS ECONOMY CLASS [address] [place] [address] [place] [address] Assigned Behavioral Health Provider 06/30/23 Sadaf Apple NP Assigned PCP 07/21/23 09/18/23 [facility] [id number] [place] [address] Assigned PCP 09/19/23 Yamel Saha PA-C [address] [address] Assigned Cancer Care Provider 01/19/24 04/19/24 Luna Simons MD [address] [id number] Assigned Cancer Care Provider 04/20/24 documented as of this encounter
--- OUTSIDE RECORDS SUMMARY | 2024-10-15 17:09 | XMS_ITS | Encounter Summary ---
Author Organization [place] Address [address] [place] [address] Care Team Providers Care Tax Accountant Name Role Phone Cyndie Eisenberg NP Primary Care Provider + Rodney Natarajan MD Unavailable [phone] Luna Simons MD Unavailable Caroline Duque RN Unavailable [phone] Martha White MD Unavailable Pderito Ramirez MD Unavailable [phone] Rodney Natarajan MD Unavailable [phone] Luna Simons MD Unavailable Martha White MD Unavailable Mio Mclean MD Unavailable [phone] Ankita Park MD Unavailable [phone] Ankita Park MD Unavailable [phone] Mio Mclean MD Unavailable [phone] Luna Simons MD Unavailable Luna Simons MD Unavailable [phone] Jose Zaragoza NP Unavailable Mio Mclean MD Unavailable [phone] Luna Simons MD Unavailable [phone] Nadja Hagen MD Unavailable [phone] Batool Atkinson PhD LP Unavailable [phone] Prisca Miller MD Unavailable [phone] Ramin Steelen Ravi HOISTING MACHINE OPERATOR STARS ANALYTICAL LEAD Unavailable + Jennyfer Steele APRN STARS ANALYTICAL LEAD Unavailable + Sadaf Apple NP Unavailable Unavailable [facility] Unavailabl e Yamel Saha PA-C Unavailable [phone] Luna Simons MD Unavailable [phone] Reason for Visit * Reason Onset Date Comments Medication Question 12/06/2019 Topamax tape r, med plans Encounter Details Date Type Department Care Team (Latest Contact Info) Description 12/06/2019 MyC Medical Advice [facility] [place] [phone] [facility] [address] [address] Martha White MD [facility] [place] [address] [place] [address] Medication Question (Topamax taper, med pl... Social History Tobacco Use Types Packs/Day Years [...] Description 09/15/2025 9:15 AM CDT Ancillary Procedure [facility] Breast Center Imaging [place] [address] [place] [phone] Luna Simons MD 420 [facility] 480 [place], [place] 456695 09/15/2025 10:00 AM CDT Oncology Visit [facility] 9[address] [facility] [place] [phone] Luna Simons MD 420 [facility] 480 [place] [address] documented as of this encounter Visit Diagnoses Not on filedocumented in this encounter Additional Health Concerns Infection Onset Date Last Indicated Resolved Time Rule Out COVID-19 01/24/2023 01/24/2023 01/24/2023 10:32 PM CDT documented as of this encounter Care Teams Tax Accountant Relationship Specialty Start Date End Date Cyndie Eisenberg NP [address] [place] [address] PCP - General 09/25/19 Rodney Natarajan MD [address] [place] [address] 195 [place], [place] 918625 General Surgery 09/25/19 Luna Simons MD [address] [place] [address] 480 [place], [place] 245235 Hematology 09/25/19 Caroline Duque, RN Specialty Pull Worker Breast Oncology 09/30/19 Martha White MD [address] [place] [address] [address] [place] [address] filter press tender head 11/01/19 Pedrito Ramirez MD 6405 [facility] [address] [place] [address] Assigned Heart and Vascular Provider 03/20/20 11/07/20 Rodney Natarajan MD [address] [facility] 195 [place] [address] Assigned Surgical Provider 03/20/20 08/07/21 Luna Simons MD 420 [facility] 480 [place] [address] Assigned Cancer Care Provider 03/20/20 04/11/20 Martha White MD [facility] [place] [address] [place], [place] 242104 Assigned Behavioral Health Provider 03/20/20 05/02/20 Mio Mclean MD 420 [facility] 494 [place], [place] 0[address]95 Assigned Cancer Care Provider 04/12/20 04/21/20 Ankita Park MD [facility] [place] [phone] Assigned Behavioral Health Provider 05/03/20 06/29/23 Ankita Park MD [address] [place], [place] [address]E [address] [address] filter press tender head 06/10/20 Mio Mclean MD 420 [facility] 494 [place] [address] Assigned Cancer Care Provider 05/10/20 07/25/20 Luna Simons MD 420 [facility] 480 [place] [address] Assigned Cancer Care Provider 04/22/20 05/09/20 Luna Simons MD 420 [facility] 480 [place] [address] Assigned Cancer Care Provider 07/26/20 06/26/21 Jose Zaragoza, EXECUTIVE SEARCH CONSULTANT [address] [place] 101805 Assigned Heart and Vascular Provider 11/08/20 02/04/22 Mio Mclean MD 420 [facility] 494 [place], [place] 726465 Assigned Cancer Care Provider 06/27/21 09/11/21 Luna Simons MD 420 [facility] 480 [place] [address] Assigned Cancer Care Provider 09/12/21 01/18/24 Nadja Hagen MD [address] 2, [address] [place], [place] [address] Resident Psychiatry 04/01/22 05/13/24 Batool Atkinson, PhD LP [address] [place], [place] 053714 Psychologist Licensed Mental Health 04/01/22 Prisca Miller MD 516 [facility] 295 [place], [place] 9[address]85 Resident Neurology 02/10/23 Jennyfer Steele APRN STARS ANALYTICAL LEAD 2312 S [facility] [address] [place], [place] 424154 Nurse Practitioner Psychiatry 02/23/23 Jennyfer Steele APRN STARS ANALYTICAL LEAD [address] [place] [address] [address] [place], [place] 239004 Assigned Behavioral Health Provider 06/30/23 Sadaf Apple NP Assigned PCP 07/21/23 09/18/23 [facility] [address] [place] [address] Assigned PCP 09/19/23 Yamel Saha PA-C [address] [place] [address] 170815 Assigned Cancer Care Provider 01/19/24 04/19/24 Luna Simons MD [address] [place] [address] 672395 Assigned Cancer Care Provider 04/20/24 documented as of this encounter
--- OUTSIDE RECORDS SUMMARY | 2024-10-15 17:10 | XMS_ITS | Encounter Summary ---
Author Organization [place] Address [address] [place] [address] Care Team Providers Care Newsstand Vendor Name Role Phone Cyndie Eisenberg NP Primary Care Provider + Rodney Natarajan MD Unavailable [phone] Luna Simons MD Unavailable [phone] Caroline Duque RN Unavailable [phone] Martha White MD Unavailable Pedrito Ramirez MD Unavailable [phone] Rodney Natarajan MD Unavailable [phone] Luna Simons MD Unavailable Martha White MD Unavailable Mio Mclean MD Unavailable [phone] Ankita Park MD Unavailable Ankita aPrk MD Unavailable +[phone] Mio Mclean MD Unavailable Luna Simons MD Unavailable [phone] Luna Simons MD Unavailable Jose Zaragoza NP Unavailable [phone] Mio Mclean MD Unavailable [phone] Luna Simons MD Unavailable [phone] Nadja Hagen MD Unavailable [phone] Batool Atkinson PhD LP Unavailable [phone] Prisca Miller MD Unavailable [phone] Jennyfer Steele JANITOR AND CLEANER LIDDER Unavailable + Ivette Jennyferjulieth Rodrigues APRN LIDDER Unavailable + Sadaf Apple NP Unavailable Unavailable [facility] Unavailabl e Yamel Saha PA-C Unavailable +[phone] Luna Simons MD Unavailable +[phone] Encounter Details Date Type Department Care Team (Late st Contact Info) Description 12/17/2019 MyC Medical Advice [facility] Breast Center [address] [address] Rodney Natarajan MD [address] [place] [address] 195 [place] [address] Social History Tobacco Use Types [...] have Coronavirus / COVID-19? No / Unsure 12/17/2019 10:46 AM CDT documented as of this encounter Plan of Treatment Upcoming Encounters Date Type Department Care Team (Late st Contact Info) Description 09/15/2025 9:15 AM CDT Ancillary Procedure [facility] Breast Center Imaging [place] [address] [facility] 2nd [place] [address] Luna Simons MD 420 [facility] 480 [place] [address] 09/15/2025 10:00 AM CDT Oncology Visit [facility] 909 [facility] [place] [address] Luna Simons MD 420 [facility] 480 [place], [place] 242565 documented as of this encounter Visit Diagnoses Not on filedocumented in this encounter Additional Health Concerns Infection Onset Date Last Indicated Resolved Time Rule Out COVID-19 01/24/2023 01/24/2023 01/24/2023 10:32 PM CDT documented as of this encounter Care Teams Newsstand Vendor Relationship Specialty Start Date End Date Cyndie Eisenberg GAS DISTRIBUTION AND EMERGENCY CLERK [address] [place] [address] PCP - General 09/25/19 Rodney Natarajan MD [address] [place] [address] 195 [place], [place] 912725 General Surgery 09/25/19 Luna Simons MD [address] [place] [address] 480 [place], [place] 944765 Hematology 09/25/19 Caroline Duque, RN Specialty Budget Consultant Breast Oncology 09/30/19 Martha White MD [address] [place] [address] [place] [address] plastic parts designer 11/01/19 Pedrito Ramirez MD [address] [place] [address] [place] [address] Assigned Heart and Vascular Provider 03/20/20 11/07/20 Rodney Natarajan MD [address] [facility] 195 [place] [address] Assigned Surgical Provider 03/20/20 08/07/21 Luna Simons MD [address] [facility] 480 [place] [address] Assigned Cancer Care Provider 03/20/20 04/11/20 Martha White MD [address] [place] [address] [address] [place], [place] 430944 Assigned Behavioral Health Provider 03/20/20 05/02/20 Mio Mclean MD [address] [facility] 494 [place] [address] Assigned Cancer Care Provider 04/12/20 04/21/20 Ankita Park MD [facility] [address] [address] Assigned Behavioral Health Provider 05/03/20 06/29/23 Ankita Park MD [facility] [address] [phone] plastic parts designer 06/10/20 Mio Mclean MD [address] [facility] 494 [place] [address] Assigned Cancer Care Provider 05/10/20 07/25/20 Luna Simons MD [address] [facility] 480 [place] [address] Assigned Cancer Care Provider 04/22/20 05/09/20 Luna Simons MD 420 [facility] 480 [place] [address] Assigned Cancer Care Provider 07/26/20 06/26/21 Jose Zaragoza, GAS DISTRIBUTION AND EMERGENCY CLERK [address] [facility] [place] 481905 Assigned Heart and Vascular Provider 11/08/20 02/04/22 Mio Mclean MD 420 [facility] 494 [place], [place] 422115 Assigned Cancer Care Provider 06/27/21 09/11/21 Luna Simons MD 420 [facility] 480 [place], [place] 9[address]885 Assigned Cancer Care Provider 09/12/21 01/18/24 Nadja Hagen MD [facility]2 [address] [facility] Floor 2, [address] [place], [place] 7[address] Resident Psychiatry 04/01/22 05/13/24 Batool Atkinson, PhD LP [address] [place] [address] [address]VE [address] [place], [place] 829424 Psychologist Licensed Mental Health 04/01/22 Prisca Miller MD 516 [facility] 295 [place], [place] 5[address]95 Resident Neurology 02/10/23 Jennyfer Steele APRN LIDDER [address] [place] [address] [place], [place] 6[address]684 Nurse Practitioner Psychiatry 02/23/23 Jennyfer Steele APRN LIDDER [address] [place] [address] [address] [place] [address] Assigned Behavioral Health Provider 06/30/23 Sadaf Apple NP Assigned PCP 07/21/23 09/18/23 [facility] [address] [place] [address] Assigned PCP 09/19/23 Yamel Saha PA-C [address] [place] [address] 062075 Assigned Cancer Care Provider 01/19/24 04/19/24 Luna Simons MD [address] 620485 Assigned Cancer Care Provider 04/20/24 documented as of this encounter
--- OUTSIDE RECORDS SUMMARY | 2024-10-15 17:10 | XMS_ITS | Clinical Summary ---
Author Organization [facility] Address [address] [place] [address] Care Team Providers Care Backpackers Manager Name Role Phone Lucita French MD Primary Care Provider Source Comments You are receiving this document as you are listed as the primary care provider,follow-up provider, or the patient has been referred to you for consultation.This is in compliance with the Medicare and[facility] EHR Incentive Program,which states Providers who transition their patient to another setting of careor provider of care or refers their patient to another provider of care shouldprovide summary care record for each transition of care or referral. [employer] Allergies No known active allergies Medications DULoxetine (CYMBALTA) 60 MG capsule Take 1 Capsule (60 mg) by mouth daily. 03/27/2021 Active traZODone (DESYREL) 50 MG tablet Take 2 Tablets (100 mg) by mouth daily at bedtime. 11/18/2020 Active Probiotic Product (PROBIOTIC-10) CHEW Chew and swallow 50 mg by mouth daily. Active ADDERALL XR 10 MG 24 hour release capsule Take 1 Capsule (10 mg) by mouth two times a day. 12/26/2021 Active DULoxetine (CYMBALTA) 20 MG capsule Take by mouth. 01/09/2022 Active Active Problems Problem Noted Date Diagnosed Date Encounter for central line care 11/02/2020 H/O LEEP 09/20/2019 Overview (09/20/2019): 2008 Invasive ductal carcinoma of breast, right 09/19 Overview (09/20/2019): Added automatically from request for surgery [id number] Invasive ductal carcinoma of breast, right 09/19 Overview (01/27/2021): Check 10.20 for EOTD. [facility] Added automatically from request for surgery [id number] Check 6.21 for EOTD. [facility] Added automatically from request for surgery [id number] Added automatically from request for surgery [id number] H/O LEEP 09/20/2019 Overview (01/27/2021): 2008 2008 2008 Anxiety Resolved Problems Problem Noted Date Diagnosed Date Resolved Date Pneumonia 08/25/2020 09/02/2020 Neutropenic fever 08/25/2020 09/02/2020 Tachycardia 10/29/2019 01/16/2020 IUD (intrauterine device) in place 01/16/2020 Immunizations Immunization Administration Dates Next Due TDAP (ADACEL) 01/30/2019,05/10/2017,07/23/2014 Family History Medical History Relation Name Comments No Known Problems Father No Known Problems Brother 4 No Known Problems Brother 5 Cancer, Other Maternal Grandfather liver ca Cancer, Cervical Maternal Grandmother Cancer, Lung Maternal Grandmother Cancer, Other Maternal Grandmother uterin e ca Cancer, Ovary Maternal Grandmother Heart Disease Paternal Grandfather Cancer, Liver Paternal Grandmother Diabetes Paternal Grandmother Cancer, Other Paternal Uncle liver cancer No Known Problems Sister 4 No Known Problems Sister 5 Relation Name Status Comments Father Alive Mother Alive Brother 1 Alive Brother 2 Alive Brother 3 Brother 4 Brother 5 Maternal Grandfather Maternal Grandmother Paternal Grandfather Paternal Grandmother Paternal Uncle Sister 1 Alive Sister 2 Alive Sister 3 Alive Sister 4 Sister 5 Social History Tobacco Use Types Packs/Day Years Used Date Smoking Tobacco: Former Cigarettes Q uit: 09/19/2009 Smokeless Tobacco: Never Tobacco Cessation:Counseling Given: Not Answered Alcohol Use Standard Drinks/Week Comments Not Currently [...] file Not on file Not on file Last Filed Vital Signs Vital Sign Reading Time Taken Comments Blood Pressure 140/84 12/15/2022 10:48 AM CDT Pulse 77 12/15/2022 10:48 AM CDT Temperature 36.6 C (97.8 F) 10/05/2022 12:43 PM CDT Respiratory Rate 18 04/08/2022 10:18 AM [employer] Oxygen Saturation 99% 12/15/2022 10:48 AM CDT Inhaled Oxygen Concentration - - Weight 57.2 kg (126 lb 3.2 oz) 12/15/2022 10:48 AM CDT Height 160 cm (5' 3) 04/08/2022 10:18 AM [employer] Body Mass Index 22.36 04/08/2022 10:18 AM [employer] Plan of Treatment Health Maintenance Due Date Last Done Comments HepB Vaccine (1) 10/16/1998 Mammogram 06/03/2021 06/03/2020, 09/10/2019, 09/10/2019 COVID-19 Vaccine (2023-2 5 season) 2024 Adult Preventive Visit 04/05/2024 , 10/06/2020 Influenza Vaccine (Season Ended) 2025 Cervical Cancer Screening 10/09/20252020, 10/06/2020 DTaP/Tdap/Td Vaccine (4 - Tdap) 01/30/2029 01/30/2019, 05/10/2017, 07/23/2014 Zoster/Shingles Vaccine (1 o f 2) 10/16/2029 HIV Screening (Preventive Services) Completed 04/05/2022 Hep C Screening (Preventive Services) Completed 04/05/2022 HPV Vaccine Aged Out No longer eligi ble based on patient's age to complete this topic HepA Vaccine Aged Out No longer eligi ble based on patient's age to complete this topic Hib Vaccine Aged Out No longer eligi ble based on patient's age to complete this topic IPV (Polio) Vaccine Aged Out No longe r eligible based on patient's age to complete this topic MCV4 Vaccine Aged Out No longer eligi ble based on patient's age to complete this topic Meningococcal B Vaccine Aged Out No l onger eligible based on patient's age to complete this topic Pneumococcal Vaccine Aged Out No long er eligible based on patient's age to complete this topic Procedures Procedure Name Priority Date/Time Associated Diagnosis Comments HIV 1/2 AG/AB 4TH GEN Routine 04/05/2022 11:54 AM [employer] Screening for HIV (human immunodeficiency virus) HEPATITIS C ANTIBODY, WITH REFLEX Routine 04/05/2022 11:54 AM [employer] Need for hepatitis C screening test HPV WITH 16 18 GENOTYPING, CERVICAL/ENDOCERV ICAL Routine 10/09/2020 8:45 AM CDT Annual physical exam MM MAMMOGRAM DIAG BILAT W 3D ASHU YENNY 09/10/2019 9:32 AM CDT from Last 3 Months or Most Recently Relevant to Health Maintenance Results * HIV 1/2 Ag/Ab 4th Generation (04/05/2022 11:54 AM [employer]) HIV 1/2 Antigen/Antib marilee (4th generation) Negative (Non Reactive) Negative (Non Reactive) 04/05/2022 6:29 PM [employer] [facility] Comment:HIV-1 p24 Antigen an d HIV-1/HIV-2 Antibody not detected Blood Venipuncture / Unknown 04/05/2022 11:54 AM [employer] 04/05/2022 11:54 AM [employer] us Anjelica Camarena MD LAB_1 Final Result [facility] [address] [place] [address], [facility] * Hepatitis C Antibody, with Reflex (04/05/2022 11:54 AM [employer]) Hepatitis C Antibody Negative (Non Reactive) Negative (Non Reactive) 04/05/2022 6:29 PM [employer] [facility] Comment:Antibodies to HCV no t detected. Does not exclude the possiblity of exposure to HCV. Blood Venipuncture / Unknown 04/05/2022 11:54 AM [employer] 04/05/2022 11:54 AM [employer] us Anjelica Camarena MD LAB_1 Final Result Performing Organization Address City/[facility]/ZIP Co de Phone Number [facility] [address] * HPV with 16 18 Genotyping (10/09/2020 8:45 AM CDT) HPV High Risk 16 Negative Negative 10/09/2020 3:35 PM CDT [facility] HPV High Risk 18 Negative Negative 10/09/2020 3:35 PM CDT [facility] HPV High Risk Other Than 16/18 Negative Negative 10/09/2020 3:35 PM CDT [facility] Other (Type-in) ENTIRE ENDOCERVIX / Unknown 10/06/2020 10:27 AM CDT 10/09/2020 8:45 AM CDT us Cyndie Eisenberg APRN, CNP LAB_1 Fin al Result HP CONVERSION [facility] [address] [place] [address] * MM Mammogram Diag Bilat W 3D Ashu (09/10/2019 9:32 AM CDT) Anatomical Region Laterality Modality Breast Bilateral Mammography Narrative 09/10/2019 11:54 AM CDT MAMMOGRAM DIAGNOSTIC ASHU BILATERAL ABNORMAL REPORT BILATERAL Digital Diagnostic Mammogram Clinical History: Palpable abnormality in the upper outer aspect of the right breast. Comparison: None. Breast Density: Heterogeneously dense, which may obscure small masses. Findings: A diagnostic bilateral mammogram was performed utilizing tomosynthesis. RIGHT BREAST: At site of the palpable abnormality in the upper outer aspect of the right breast there is a small rounded asymmetry that will be further evaluated with ultrasound. Otherwise the right breast is unremarkable. LEFT BREAST: There is no evidence for spiculated masses, architectural distortion, asymmetry or suspicious calcifications. Right breast ultrasound: Sonographic evaluation of the right breast shows in the area of the palpable abnormality in the 11 o'clock position approximately 6 cm from the nipple there is a partially circumscribed hypoechoic mass measuring 10 x 9 x 7 mm. There is internal blood flow. This may represent a fibroadenoma, but tissue diagnosis is recommended to exclude other lesion. No evidence for right axillary adenopathy. Impression: 1. The palpable abnormality corresponds to a small solid lesion in the 11 o'clock position that is partially circumscribed. Differential would include fibroadenoma or neoplasm. Tissue diagnosis is recommended. 2. No mammographic evidence for malignancy in the left breast. Recommendation: Core biopsy of the right breast. The patient was provided with the results and recommendations at the completion of the examination. When performed, computer-aided detection was used in the interpretation of this study. ACR 4: Suspicious Abnormality. The patient will receive a lay language report of this examination. Procedure Note Edward Tubbs MD - 09/23/2020 MAMMOGRAM DIAGNOSTIC ASHU BILATERAL ABNORMAL REPORT BILATERAL Digital Diagnostic Mammogram Clinical History: Palpable abnormality in the upper outer aspect of the right breast. Comparison: None. Breast Density: Heterogeneously dense, which may obscure small masses. Findings: A diagnostic bilateral mammogram was performed utilizing tomosynthesis. RIGHT BREAST: At site of the palpable abnormality in the upper outer aspect of the right breast there is a small rounded asymmetry that will be further evaluated with ultrasound. Otherwise the right breast is unremarkable. LEFT BREAST: There is no evidence for spiculated masses, architectural distortion, asymmetry or suspicious calcifications. Right breast ultrasound: Sonographic evaluation of the right breast shows in the area of the palpable abnormality in the 11 o'clock position approximately 6 cm from the nipple there is a partially circumscribed hypoechoic mass measuring 10 x 9 x 7 mm. There is internal blood flow. This may represent a fibroadenoma, but tissue diagnosis is recommended to exclude other lesion. No evidence for right axillary adenopathy. Impression: 1. The palpable abnormality corresponds to a small solid lesion in the 11 o'clock position that is partially circumscribed. Differential would include fibroadenoma or neoplasm. Tissue diagnosis is recommended. 2. No mammographic evidence for malignancy in the left breast. Recommendation: Core biopsy of the right breast. The patient was provided with the results and recommendations at the completion of the examination. When performed, computer-aided detection was used in the interpretation of this study. ACR 4: Suspicious Abnormality. The patient will receive a lay language report of this examination. us Cyndie Eisenberg APRN, ADMINISTRATIVE SERVICES DIRECTOR RAD SAMANTHA Fin al Result from Last 3 Months or Most Recently Relevant to Health Maintenance Insurance BCBS OUT OF STATE BCBS OUT OF STATE [facility] OUT OF STATE Advance Directives * Full Code (Latest Code Status on File) Date Activated Date Inactivated Comments 08/25/2020 6:57 AM 08/24/2020 7:00 PM * Full Code Date Activated Date Inactivated Comments 08/25/2020 6:57 AM 08/26/2020 10:32 AM Care Teams Backpackers Manager Relationship Specialty Start Date End Date Lucita French MD [address] [place] [address] PCP - General Family Practice 07/15/21
--- OUTSIDE RECORDS SUMMARY | 2024-10-15 17:10 | XMS_ITS | Encounter Summary ---
Author Organization [facility] Address [address] [place] [address] Care Team Providers Care Filling Technician Name Role Phone Cyndie Eisenberg NP Primary Care Provider + Rodney Natarajan MD Unavailable [phone] Luna Simons MD Unavailable Caroline Duque RN Unavailable [phone] Martha White MD Unavailable Pedrito Ramirez MD Unavailable [phone] Rodney Natarajan MD Unavailable [phone] Luna Simons MD Unavailable Martha White MD Unavailable Mio Mclean MD Unavailable [phone] Ankita Park MD Unavailable [phone] Ankita Park MD Unavailable [phone] Mio Mclean MD Unavailable [phone] Luna Simons MD Unavailable Luna Simons MD Unavailable Jose Zaragoza NP Unavailable Mio Mclean MD Unavailable [phone] Luna Simons MD Unavailable [phone] Nadja Hagen MD Unavailable [phone] Batool Atkinson PhD LP Unavailable [phone] Prisca Miller MD Unavailable [phone] Jennyfer Steele APRN PLATFORM MATERIAL HANDLING SUPERVISOR Unavailable + Jennyfer Steele APRN PLATFORM MATERIAL HANDLING SUPERVISOR Unavailable + Sadaf Apple NP Unavailable Unavailable Clinic - [facility] [[email or web address]] Unavailabl e Yamel Saha PA-C Unavailable [phone] Luna Simons MD Unavailable [phone] Encounter Details Date Type Department Care Team (Late st Contact Info) Description 09/30/2019 [facility] [address] [place] [phone] Caroline Duque, ASHLIE Social History Tobacco [...] have Coronavirus / COVID-19? No / Unsure 10/01/2019 9:29 AM CDT documented as of this encounter Miscellaneous Notes * Telephone Encounter - Faina Hassan CMA - 10/07/2019 10:14 AM CDT Order for wig printed out, to give to pt 10/08/19 while in infusion. Faina Hassan CMA ([facility]) ----- Message from Charla Castillo RN sent at 10/07/2019 9:54 AM CDT ----- Regarding: FW: SCript for a wig Hello, Can you please print this off and bring it to Anjelica tomorrow. Thank you, Cande documented in this encounter Plan of Treatment Upcoming Encounters Date Type Department Care Team (Late st Contact Info) Description 09/15/2025 9:15 AM CDT Ancillary Procedure [facility] Breast Center Imaging [place] [address] [facility] 2nd [place] [phone] Luna Simons MD 420 [facility] 480 [place], [place] [phone] 09/15/2025 10:00 AM CDT Oncology Visit [facility] [address] [place] [phone] Luna Simons MD 420 [facility] 480 [place], [place] [phone] documented as of this encounter Visit Diagnoses Not on filedocumented in this encounter Additional Health Concerns Infection Onset Date Last Indicated Resolved Time Rule Out COVID-19 01/24/2023 01/24/2023 01/24/2023 10:32 PM CDT documented as of this encounter Care Teams Filling Technician Relationship Specialty Start Date End Date Cyndie Eisenberg NP [address] [place] [address] PCP - General 09/25/19 Rodney Natarajan MD 420 [facility] 195 [place], [place] [address] General Surgery 09/25/19 Luna Simons MD 420 [facility] 480 [place], [place] [address] Hematology 09/25/19 Caroline Duque, RN Specialty Car Inspector Breast Oncology 09/30/19 Martha White MD [address] [place], [place] [phone] [place] [address] sql consultant 11/01/19 Pedrito Ramirez MD [address] [facility] [address] [place] [address] Assigned Heart and Vascular Provider 03/20/20 11/07/20 Rodney Natarajan MD 420 [facility] 195 [place], [place] [address] Assigned Surgical Provider 03/20/20 08/07/21 Luna Simons MD 420 [facility] [address] [place], [place] [address] Assigned Cancer Care Provider 03/20/20 04/11/20 Martha White MD [address] [place] [address] Assigned Behavioral Health Provider 03/20/20 05/02/20 Mio Mclean MD 420 [facility] 494 [place], [place] [address] Assigned Cancer Care Provider 04/12/20 04/21/20 Ankita Park MD [facility] [phone] Assigned Behavioral Health Provider 05/03/20 06/29/23 Ankita Park MD [facility]0 [facility] [address] [address] sql consultant 06/10/20 Mio Mclean MD 420 [facility] [address] [place] [address] Assigned Cancer Care Provider 05/10/20 07/25/20 Luna Simons MD 420 [facility] 480 [place] [address] Assigned Cancer Care Provider 04/22/20 05/09/20 Luna Simons MD [address] [address] Assigned Cancer Care Provider 07/26/20 06/26/21 Jose Zaragoza, TOASTER ELEMENT REPAIRER [address] [facility] [address] Assigned Heart and Vascular Provider 11/08/20 02/04/22 Mio Mclean MD 420 [facility] 494 [place] [address] Assigned Cancer Care Provider 06/27/21 09/11/21 Luna Simons MD 420 [facility] [address] [place] [address] Assigned Cancer Care Provider 09/12/21 01/18/24 Nadja Hagen MD [address] [place] [address] Resident Psychiatry 04/01/22 05/13/24 Batool Atkinson, PhD LP [address]50 [facility] [address] [place], [place] [address] Psychologist Licensed Mental Health 04/01/22 Prisca Miller MD [address] [facility] 295 [place], [place] [address] Resident Neurology 02/10/23 Jennyfer Steele APRN PLATFORM MATERIAL HANDLING SUPERVISOR [address] [place] [address] Nurse Practitioner Psychiatry 02/23/23 Jennyfer Steele APRN PLATFORM MATERIAL HANDLING SUPERVISOR [address] [facility] [address] [place], [place] [address] Assigned Behavioral Health Provider 06/30/23 Sadaf Apple NP Assigned PCP 07/21/23 09/18/23 [facility] [id number] [place] [address] Assigned PCP 09/19/23 Yamel Saha PA-C 420 [facility] 480 [place], [place] [address] Assigned Cancer Care Provider 01/19/24 04/19/24 Luna Simons MD 420 [facility] [address] [place], [place] [address] Assigned Cancer Care Provider 04/20/24 documented as of this encounter
--- OUTSIDE RECORDS SUMMARY | 2024-10-15 17:10 | XMS_ITS | Encounter Summary ---
Author Organization [facility] Address [address] [place] [address] Care Team Providers Care Retail Branch Manager Name Role Phone Cyndie Eisenberg NP Primary Care Provider + Rodney Natarajan MD Unavailable [phone] Luna Simons MD Unavailable [phone] Caroline Duque RN Unavailable [phone] Martha White MD Unavailable [phone] Pedrito Ramirez MD Unavailable [phone] Rodney Natarajan MD Unavailable Luna Simons MD Unavailable [phone] Martha White MD Unavailable Mio Mclean MD Unavailable [phone] Ankita Park MD Unavailable [phone] Ankita Park MD Unavailable [phone] Mio Mclean MD Unavailable [phone] Luna Simons MD Unavailable Luna Simons MD Unavailable Jose Zaragoza NP Unavailable [phone] Mio Mclean MD Unavailable [phone] Luna Simons MD Unavailable [phone] Nadja Hagen MD Unavailable [phone] Batool Atkinson PhD LP Unavailable [phone] Prisca Miller MD Unavailable [phone] Ramin Steelen Ravi KEVIN SYSTEMS COORDINATOR Unavailable + Jennyfer Steele APRN SYSTEMS COORDINATOR Unavailable + Sadaf Apple NP Unavailable Unavailable Clinic - [facility] Unavailabl e Yamel Saha PA-C Unavailable [phone] Luna Simons MD Unavailable [phone] Encounter Details Date Type Department Care Team (Late st Contact Info) Description 10/31/2019 [facility] Medical Advice [facility] [address] [place] [phone] Caroline Duque, RN Social History Tobacco [...] have Coronavirus / COVID-19? No / Unsure 11/01/2019 1:46 PM CDT documented as of this encounter Plan of Treatment Upcoming Encounters Date Type Department Care Team (Late st Contact Info) Description 09/15/2025 9:15 AM CDT Ancillary Procedure [facility] Breast Center Imaging [address] 2nd [place] [phone] Luna Simons MD [address] [place] [phone] 09/15/2025 10:00 AM CDT Oncology Visit [facility] 909 [place] [phone] Luna Simons MD [address] [phone] documented as of this encounter Visit Diagnoses Not on filedocumented in this encounter Additional Health Concerns Infection Onset Date Last Indicated Resolved Time Rule Out COVID-19 01/24/2023 01/24/2023 01/24/2023 10:32 PM CDT documented as of this encounter Care Teams Retail Branch Manager Relationship Specialty Start Date End Date Cyndie Eisenberg NP [address] [place] [address] PCP - General 09/25/19 Rodney Natarajan MD [address] [place] [address] General Surgery 09/25/19 Luna Simons MD [address] [place] [phone] Hematology 09/25/19 Caroline Duque, RN Specialty [facility] Breast Oncology 09/30/19 Martha White MD [address] [place] [address] [address] [place] [address] matching machine operator 11/01/19 Pedrito Ramirez MD [address] [facility] [address] [place] [address] Assigned Heart and Vascular Provider 03/20/20 11/07/20 Rodney Natarajan MD [address] [place] [address] Assigned Surgical Provider 03/20/20 08/07/21 Luna Simons MD 420 [facility] [address] [place] [address] Assigned Cancer Care Provider 03/20/20 04/11/20 Martha White MD [address] [place] [address] [address] [place] [address] Assigned Behavioral Health Provider 03/20/20 05/02/20 Mio Mclean MD 420 [facility] 494 [place] [address] Assigned Cancer Care Provider 04/12/20 04/21/20 Ankita Park MD [address] [place] [phone] Assigned Behavioral Health Provider 05/03/20 06/29/23 Ankita Park MD [address] [place] [phone] matching machine operator 06/10/20 Mio Mclean MD 420 [facility] [address] [place] [address] Assigned Cancer Care Provider 05/10/20 07/25/20 Luna Simons MD 420 [facility] [address] [place] [address] Assigned Cancer Care Provider 04/22/20 05/09/20 Luna Simons MD 420 [facility] [address] [place] [address] Assigned Cancer Care Provider 07/26/20 06/26/21 Jose Zaragoza, MANAGER MONITORING [address] [facility] [place] [address] Assigned Heart and Vascular Provider 11/08/20 02/04/22 Mio Mclean MD 420 [facility] [address] [place], [place] [address] Assigned Cancer Care Provider 06/27/21 09/11/21 Luna Simons MD 420 [facility] [address] [place], [place] [address] Assigned Cancer Care Provider 09/12/21 01/18/24 Nadja Hagen MD [address] [facility] Floor 2, [address] [place], [place] [address] Resident Psychiatry 04/01/22 05/13/24 Batool Atkinson, PhD LP [address] [facility] [address] [place], [place] [address] Psychologist Licensed Mental Health 04/01/22 Prisca Miller MD 516 [facility] 295 [place], [place] [address] Resident Neurology 02/10/23 Jennyfer Steele APRN SYSTEMS COORDINATOR [address] [place] [place] [address] Nurse Practitioner Psychiatry 02/23/23 Jennyfer Steele APRN SYSTEMS COORDINATOR [address] [place] [place] [address] Assigned Behavioral Health Provider 06/30/23 Sadaf Apple NP Assigned PCP 07/21/23 09/18/23 [facility] [id number] [place] [address] Assigned PCP 09/19/23 Yamel Saha PA-C [address] [address] Assigned Cancer Care Provider 01/19/24 04/19/24 Luna Simons MD [address] [phone] Assigned Cancer Care Provider 04/20/24 documented as of this encounter
--- OUTSIDE RECORDS SUMMARY | 2024-10-15 17:10 | XMS_ITS | Encounter Summary ---
Author Organization [facility] Address [address] [place] [address] Care Team Providers Care Secretary To The Vice President Name Role Phone Cyndie Eisenberg NP Primary Care Provider + Rodney Natarajan MD Unavailable [phone] Luna Simons MD Unavailable Caroline Duque RN Unavailable +[phone] Martha White MD Unavailable [phone] Pedrito Ramirez MD Unavailable [phone] Rodney Natarajan MD Unavailable +[phone] Luna Simons MD Unavailable [phone] Martha White MD Unavailable Mio Mclean MD Unavailable +[phone] Ankita Park MD Unavailable +[phone] Ankita Park MD Unavailable [phone] Mio Mclean MD Unavailable [phone] Luna Simons MD Unavailable [phone] Luna Simons MD Unavailable +[phone] Jose Zaragoza NP Unavailable [phone] Mio Mclean MD Unavailable +[phone] Luna Simons MD Unavailable +[phone] Nadja Hagen MD Unavailable +[phone] Batool Atkinson PhD LP Unavailable [phone] Prisca Miller MD Unavailable +[phone] Ramin Steelen Ravi KEVIN PREFORMING MACHINE OPERATOR Unavailable + Jennyfer Steele APRN PREFORMING MACHINE OPERATOR Unavailable + Sadaf Apple NP Unavailable Unavailable [facility] Unavailabl e Yamel Saha PA-C Unavailable +[phone] Luna Simons MD Unavailable [phone] Encounter Details Date Type Department Care Team (Late st Contact Info) Description 01/09/2020 MyC Medical Advice [facility] Surgery and Procedure [place] [address] [facility] 5th [place] [address] Rodney Natarajan MD 420 [facility] 195 [place] [address] Social History Tobacco Use Types [...] Ancillary Procedure [facility] Imaging [place] 909 [facility] 2nd [place] [address] Luna Simons MD 420 [facility] 480 [place], [place] 9[address]245 09/15/2025 10:00 AM CDT Oncology Visit [facility] 9[address] [facility] [place] [phone] Luna Simons MD 420 [facility] 480 [place], [place] 172455 documented as of this encounter Visit Diagnoses Not on filedocumented in this encounter Additional Health Concerns Infection Onset Date Last Indicated Resolved Time Rule Out COVID-19 01/24/2023 01/24/2023 01/24/2023 10:32 PM CDT documented as of this encounter Care Teams Secretary To The Vice President Relationship Specialty Start Date End Date Cyndie Eisenberg NP [address] [place] [address] PCP - General 09/25/19 Rodney Natarajan MD 420 [facility] 195 [place], [place] 077385 General Surgery 09/25/19 Luna Simons MD 420 [facility] 480 [place], [place] 853515 Hematology 09/25/19 Caroline Duque, ASHLIE Specialty Head Soft Sugar Operator Breast Oncology 09/30/19 Martha White MD [address] [place] [address] [address] [place], [place] 578704 medical tech 11/01/19 Pedrito Ramirez MD 6405 [facility] [address] [place], [place] 992665 Assigned Heart and Vascular Provider 03/20/20 11/07/20 Rodney Natarajan MD [address] [facility] 195 [place], [place] 220145 Assigned Surgical Provider 03/20/20 08/07/21 Luna Simons MD 420 [facility] 480 [place] [address] Assigned Cancer Care Provider 03/20/20 04/11/20 Martha White MD [address] [place] [address] [address] [place], [place] 668324 Assigned Behavioral Health Provider 03/20/20 05/02/20 Mio Mclean MD 420 [facility] 494 [place] [address] Assigned Cancer Care Provider 04/12/20 04/21/20 nAkita Park MD [address] [place] [address] Assigned Behavioral Health Provider 05/03/20 06/29/23 Ankita Park MD [address] [place] [phone] medical tech 06/10/20 Mio Mclean MD [address] [facility] [address] [facility] 494 [place] [address] Assigned Cancer Care Provider 05/10/20 07/25/20 Luna Simons MD 420 [facility] 480 [place] [address] Assigned Cancer Care Provider 04/22/20 05/09/20 Luna Simons MD 420 [facility] 480 [place] [address] Assigned Cancer Care Provider 07/26/20 06/26/21 Jose Zaragoza, INCUBATOR OPERATOR 6405 [place] [address] Assigned Heart and Vascular Provider 11/08/20 02/04/22 Mio Mclean MD 420 [facility] 494 [place] [address] Assigned Cancer Care Provider 06/27/21 09/11/21 Luna Simons MD 420 [facility] 480 [place] [address] Assigned Cancer Care Provider 09/12/21 01/18/24 Nadja Hagen MD [address] 2, [address] [place], [place] 3211[address] Resident Psychiatry 04/01/22 05/13/24 Batool Atkinson, PhD LP 2450 [facility] [address] [place], [place] 964914 Psychologist Licensed Mental Health 04/01/22 Prisca Miller MD 516 [facility] 295 [place] [address] Resident Neurology 02/10/23 Jennyfer Steele APRN PREFORMING MACHINE OPERATOR 2312 S [facility] [address]275 [place] [address] Nurse Practitioner Psychiatry 02/23/23 Jennyfer Steele APRN PREFORMING MACHINE OPERATOR 2312 [address] [facility] [address] [place] [address] Assigned Behavioral Health Provider 06/30/23 Sadaf Apple NP Assigned PCP 07/21/23 09/18/23 [facility] [address] [place] [address] Assigned PCP 09/19/23 Yamel Saha PA-C 420 [facility] 480 [place], [place] 639665 Assigned Cancer Care Provider 01/19/24 04/19/24 Luna Simons MD 420 [facility] 480 [place], [place] [address] Assigned Cancer Care Provider 04/20/24 documented as of this encounter
--- OUTSIDE RECORDS SUMMARY | 2024-10-15 17:10 | XMS_ITS | Encounter Summary ---
Author Organization [facility] Address [address] [place] [address] Care Team Providers Care Unified Communications Architect Name Role Phone Cyndie Eisenberg NP Primary Care Provider + Rodney Natarajan MD Unavailable Luna Simons MD Unavailable Caroline Duque RN Unavailable [phone] Martha White MD Unavailable Pedrito Ramirez MD Unavailable [phone] Rodney Natarajan MD Unavailable [phone] Luna Simons MD Unavailable Martha White MD Unavailable Mio Mclean MD Unavailable [phone] Ankita Park MD Unavailable [phone] Ankita Park MD Unavailable [phone] Mio Mclean MD Unavailable [phone] Luna Simons MD Unavailable Luna Simons MD Unavailable Jose Zaragoza NP Unavailable Mio Mclean MD Unavailable [phone] Luna Simons MD Unavailable [phone] Nadja Hagen MD Unavailable [phone] Batool Atkinson PhD LP Unavailable [phone] Prisca Miller MD Unavailable [phone] Jennyfer Steele REGISTERED NURSE AMBULATORY COMMERCIAL ARTIST LETTERING Unavailable + IvetteJennyfer APRN COMMERCIAL ARTIST LETTERING Unavailable + Sadaf Apple NP Unavailable Unavailable [facility] Unavailabl e Yamel Saha PA-C Unavailable [phone] Luna Simons MD Unavailable [phone] Encounter Details Date Type Department Care Team (Late st Contact Info) Description 12/31/2019 MyC Medical Advice [facility] [address] [place] [address] Luna Simons MD [address] [place] [address] Social History Tobacco Use Types Packs/Day [...] Procedure [facility] Imaging [place] [address] [place] [address] 2nd [place] [address] Luna Simons MD [address] [address] 09/15/2025 10:00 AM CDT Oncology Visit [facility] 909 [place] [phone] Luna Simons MD 420 [facility] 480 [place] [address] documented as of this encounter Visit Diagnoses Not on filedocumented in this encounter Additional Health Concerns Infection Onset Date Last Indicated Resolved Time Rule Out COVID-19 01/24/2023 01/24/2023 01/24/2023 10:32 PM CDT documented as of this encounter Care Teams Unified Communications Architect Relationship Specialty Start Date End Date Cyndie Eisenberg PRODUCT DESIGNER [address] [address] PCP - General 09/25/19 Rodney Natarajan MD 420 [facility] 195 [place] [address] General Surgery 09/25/19 Luna Simons MD [address] [place] [address] 480 [place] [address] Hematology 09/25/19 Caroline Duque, RN Specialty Pipe Out Worker Breast Oncology 09/30/19 Martha White MD [address] [place] [address] [place], [place] [address] heel brusher 11/01/19 Pedrito Ramirez MD [address] [place] [address] [place] [address] Assigned Heart and Vascular Provider 03/20/20 11/07/20 Rodney Natarajan MD [address] [facility] 195 [place] [address] Assigned Surgical Provider 03/20/20 08/07/21 Luna Simons MD [address] [facility] 480 [place] [address] Assigned Cancer Care Provider 03/20/20 04/11/20 Martha White MD [address] [place] [address] [address] [place], [place] 380434 Assigned Behavioral Health Provider 03/20/20 05/02/20 Moi Mclean MD [address] [facility] 494 [place] [address] Assigned Cancer Care Provider 04/12/20 04/21/20 Ankita Park MD [address] [address] Assigned Behavioral Health Provider 05/03/20 06/29/23 Ankita Park MD [address] [phone] heel brusher 06/10/20 Mio Mclean MD [address] [facility] [address] [facility] 494 [place] [address] Assigned Cancer Care Provider 05/10/20 07/25/20 Luna Simons MD [address] [facility] 480 [place] [address] Assigned Cancer Care Provider 04/22/20 05/09/20 Luna Simons MD 420 [facility] 480 [place], [place] 6[address]35 Assigned Cancer Care Provider 07/26/20 06/26/21 Jose Zaragoza, PRODUCT DESIGNER 6405 [facility] [place] [place] 3929[address] Assigned Heart and Vascular Provider 11/08/20 02/04/22 Mio Mclean MD 420 [facility] 494 [place], [place] 878435 Assigned Cancer Care Provider 06/27/21 09/11/21 Luna Simons MD 420 [facility] 480 [place], [place] 547695 Assigned Cancer Care Provider 09/12/21 01/18/24 Nadja Hagen MD [facility]2 S [facility] Floor 2, [address] [place], [place] [address] Resident Psychiatry 04/01/22 05/13/24 Batool Atkinson, PhD LP [address] [place] [address] [address] [place], [place] [address] Psychologist Licensed Mental Health 04/01/22 Prisca Miller MD 6 [facility] 295 [place], [place] 7[address]65 Resident Neurology 02/10/23 Jennyfer Steele, REGISTERED NURSE AMBULATORY COMMERCIAL ARTIST LETTERING [address] [place] [address] [place], [place] 3[address] Nurse Practitioner Psychiatry 02/23/23 Jennyfer Steele APRN COMMERCIAL ARTIST LETTERING 2312 [place] 0807775 [place], [place] 465194 Assigned Behavioral Health Provider 06/30/23 Sadaf Apple NP Assigned PCP 07/21/23 09/18/23 [facility] [address] [place] [address] Assigned PCP 09/19/23 Yamel Saha PA-C [address] 505565 Assigned Cancer Care Provider 01/19/24 04/19/24 Luna Simons MD [address] 657635 Assigned Cancer Care Provider 04/20/24 documented as of this encounter
--- OUTSIDE RECORDS SUMMARY | 2024-10-15 17:10 | XMS_ITS | Encounter Summary ---
Author Organization [facility] Address [address] [place] [address] Care Team Providers Care Angle Furnaceman Name Role Phone Cyndie Eisenberg NP Primary Care Provider + Rodney Natarajan MD Unavailable [phone] Luna Simons MD Unavailable [phone] Caroline Duque RN Unavailable [phone] Martha White MD Unavailable Pedrito Ramirez MD Unavailable [phone] Rodney Natarajan MD Unavailable [phone] Luna Simons MD Unavailable Martha White MD Unavailable Mio Mclean MD Unavailable [phone] Ankita Park MD Unavailable [phone] Ankita Park MD Unavailable [phone] Mio Mclean MD Unavailable [phone] Luna Simons MD Unavailable Luna Simons MD Unavailable Jose Zaragoza NP Unavailable Mio Mclean MD Unavailable [phone] Luna Simons MD Unavailable [phone] Nadja Hagen MD Unavailable +[phone] Batool Atkinson PhD LP Unavailable [phone] Prisca Miller MD Unavailable [phone] Ramin Steelen Ravi BLOWER ROOM ATTENDANT NEURO INTENSIVIST PHYSICIAN Unavailable + IvetteJennyfer vaughan APRN NEURO INTENSIVIST PHYSICIAN Unavailable + Sadaf Apple NP Unavailable Unavailable Clinic - [facility] Unavailabl e Yamel Saha PA-C Unavailable +[phone] Luna Simons MD Unavailable [phone] Encounter Details Date Type Department Care Team (Late st Contact Info) Description 11/04/2019 MyC Medical Advice [facility] Cancer [address] [address] [facility] Social History Tobacco Use Types [...] Procedure [facility] Breast [facility] Imaging [address] 2nd [place] [address] Luna Simons MD [address] [place] [address] 09/15/2025 10:00 AM CDT Oncology Visit [facility] Cancer [address] [place] [phone] Luna Simons MD 420 [facility] 480 [place], [place] 260155 documented as of this encounter Visit Diagnoses Not on filedocumented in this encounter Additional Health Concerns Infection Onset Date Last Indicated Resolved Time Rule Out COVID-19 01/24/2023 01/24/2023 01/24/2023 10:32 PM CDT documented as of this encounter Care Teams Angle Furnaceman Relationship Specialty Start Date End Date Cyndie Eisenberg, SEAFOOD PACKER [address] [place] [address] PCP - General 09/25/19 Rodney Natarajan MD [address] [place] [address] 603965 General Surgery 09/25/19 Luna Simons MD [address] [place] [address] 860415 Hematology 09/25/19 Caroline Duque, RN Specialty Shoe Cleaner Breast Oncology 09/30/19 Martha White MD [facility] [place] [address] [address] [place] [address] department head 11/01/19 Pedrito Ramirez MD 6405 [facility] [address] [place], [place] 8[address]55 Assigned Heart and Vascular Provider 03/20/20 11/07/20 Rodney Natarajan MD [address] [place] [address] 195 [place], [place] 679975 Assigned Surgical Provider 03/20/20 08/07/21 Luna Simons MD 420 [facility] 480 [place] [address] Assigned Cancer Care Provider 03/20/20 04/11/20 Martha White MD [facility]2 [address] [place], [place] [address] Assigned Behavioral Health Provider 03/20/20 05/02/20 Mio Mclean MD [address] [address] Assigned Cancer Care Provider 04/12/20 04/21/20 Ankita Park MD [address] [place] [phone] Assigned Behavioral Health Provider 05/03/20 06/29/23 Ankita Park MD [address] [place] [phone] department head 06/10/20 Mio Mclean MD [address] [address] Assigned Cancer Care Provider 05/10/20 07/25/20 Luna Simons MD 420 [facility] 480 [place] [address] Assigned Cancer Care Provider 04/22/20 05/09/20 Luna Simons MD 420 [facility] 480 [place] [address] Assigned Cancer Care Provider 07/26/20 06/26/21 Jose Zaragoza, SEAFOOD PACKER 6405 [facility] [place] [address] Assigned Heart and Vascular Provider 11/08/20 02/04/22 Mio Mclean MD 420 [facility] 494 [place] [address] Assigned Cancer Care Provider 06/27/21 09/11/21 Luna Simons MD 420 [facility] 480 [place] [address] Assigned Cancer Care Provider 09/12/21 01/18/24 Nadja Hagen MD [address] [place] [address] Floor 2, [address] [place], [place] 6[address] Resident Psychiatry 04/01/22 05/13/24 Batool Atkinson, PhD LP 2450 [facility] [address] [place], [place] 395544 Psychologist Licensed Mental Health 04/01/22 Prisca Miller MD 6 [facility] 295 [place], [place] 842675 Resident Neurology 02/10/23 Jennyfer Steele APRN NEURO INTENSIVIST PHYSICIAN [facility] [place] [address] [place] [address] Nurse Practitioner Psychiatry 02/23/23 Jennyfer Steele APRN NEURO INTENSIVIST PHYSICIAN [facility]2 S [facility] F275 [place] [address] Assigned Behavioral Health Provider 06/30/23 Sadaf Apple NP Assigned PCP 07/21/23 09/18/23 [facility] [address] [place] [address] Assigned PCP 09/19/23 Yamel Saha PA-C [address] 628085 Assigned Cancer Care Provider 01/19/24 04/19/24 Luna Simons MD [address] [address] Assigned Cancer Care Provider 04/20/24 documented as of this encounter
--- OUTSIDE RECORDS SUMMARY | 2024-10-15 17:10 | XMS_ITS | Encounter Summary ---
Author Organization [place] Address [address] [place] [address] Care Team Providers Care Casino Controller Name Role Phone Cyndie Eisenberg NP Primary Care Provider + Rodney Natarajan MD Unavailable [phone] Luna Simons MD Unavailable Caroline Duque RN Unavailable [phone] Martha White MD Unavailable Pedrito Ramirez MD Unavailable [phone] Rodney Natarajan MD Unavailable [phone] Martha White MD Unavailable Ankita Park MD Unavailable [phone] Ankita Park MD Unavailable [phone] Mio Mclean MD Unavailable [phone] Luna Simons MD Unavailable [phone] Luna Simons MD Unavailable Jose Zaragoza NP Unavailable [phone] Mio Mclean MD Unavailable [phone] Luna Simons MD Unavailable Nadja Hagen MD Unavailable [phone] Batool Atkinson PhD LP Unavailable [phone] Prisca Miller MD Unavailable [phone] Jennyfer Steele KEVIN HAND HEEL SEAT FITTER Unavailable + Jennyfer Steele KEVIN HAND HEEL SEAT FITTER Unavailable + Sadaf Apple NP Unavailable Unavailable Clinic - [facility] Unavailabl e Yamel Saha PA-C Unavailable [phone] Luna Simons MD Unavailable [phone] Encounter Details Date Type Department Care Team (Late st Contact Info) Description 04/22/[address] [facility] [address] [address] Lillie Arevalo RN Social History Tobacco Use Types Packs/Day [...] have Coronavirus / COVID-19? No / Unsure 04/22/2020 8:28 AM RADIO OPERATOR documented as of this encounter Plan of Treatment Upcoming Encounters Date Type Department Care Team (Late st Contact Info) Description 09/15/2025 9:15 AM CDT Ancillary Procedure [facility] Imaging [address] 2nd [place] [address] Luna Simons MD [address] [place] [address] 09/15/2025 10:00 AM CDT Oncology Visit [facility] 909 [facility] [place] [phone] Luna Simons MD [address] 914095 documented as of this encounter Visit Diagnoses Not on filedocumented in this encounter Additional Health Concerns Infection Onset Date Last Indicated Resolved Time Rule Out COVID-19 01/24/2023 01/24/2023 01/24/2023 10:32 PM CDT documented as of this encounter Care Teams Casino Controller Relationship Specialty Start Date End Date Cyndie Eisenberg NP [address] [place] [address] PCP - General 09/25/19 Rodney Natarajan MD [address] 545705 General Surgery 09/25/19 Luna Simons MD [address] 920585 Hematology 09/25/19 Caroline Duque, RN Specialty Digital Marketing Coordinator Breast Oncology 09/30/19 Martha White MD [address] [place] [address] [address] [place] [address] farmworker bulbs 11/01/19 Pedrito Ramirez MD 6405 [facility] [address] [place], [place] 0[address]95 Assigned Heart and Vascular Provider 03/20/20 11/07/20 Rodney Natarajan MD [address] 8569[address] Assigned Surgical Provider 03/20/20 08/07/21 Martha White MD [facility] [address] [place], [place] 98[address] Assigned Behavioral Health Provider 03/20/20 05/02/20 Ankita Park MD [address] [place] [address] Assigned Behavioral Health Provider 05/03/20 06/29/23 Ankita Park MD [address] [place] [address] farmworker bulbs 06/10/20 Mio Mclean MD [address] 265[address] Assigned Cancer Care Provider 05/10/20 07/25/20 Luna Simons MD [address] 716405 Assigned Cancer Care Provider 04/22/20 05/09/20 Luna Simons MD [address] [address] Assigned Cancer Care Provider 07/26/20 06/26/21 Jose Zaragoza, AGENCY APPOINTMENTS SUPERVISOR 6405 [facility] [address] Assigned Heart and Vascular Provider 11/08/20 02/04/22 Mio Mclean MD [address] [place] [address] Assigned Cancer Care Provider 06/27/21 09/11/21 Luna Simons MD 420 [facility] 480 [place] [address] Assigned Cancer Care Provider 09/12/21 01/18/24 Nadja Hagen MD [address] [place] [address] Floor 2, [address] [place], [place] 315[address] Resident Psychiatry 04/01/22 05/13/24 Batool Atkinson, PhD LP [address] [place] [address] [address] [place] [address] Psychologist Licensed Mental Health 04/01/22 Prisca Miller MD 516 [facility] 295 [place], [place] 199115 Resident Neurology 02/10/23 Jennyfer Steele APRN HAND HEEL SEAT FITTER [address] [place] [address], [facility] [address] [place] [address] Nurse Practitioner Psychiatry 02/23/23 Jennyfer Steele APRN HAND HEEL SEAT FITTER [address] [place] [address] [address] [place] [address] Assigned Behavioral Health Provider 06/30/23 Sadaf Apple NP Assigned PCP 07/21/23 09/18/23 [facility] [address] [place] [address] 6248144 Assigned PCP 09/19/23 Yamel Saha PA-C [address] 864745 Assigned Cancer Care Provider 01/19/24 04/19/24 Luna Simons MD [address] [place] [address] 905285 Assigned Cancer Care Provider 04/20/24 documented as of this encounter
--- OUTSIDE RECORDS SUMMARY | 2024-10-15 17:10 | XMS_ITS | Encounter Summary ---
Author Organization [place] Address [address] [place] [address] Care Team Providers Care Armoured Car Escort Name Role Phone Cyndie Eisenberg NP Primary Care Provider + Rodney Natarajan MD Unavailable [phone] Luna Simons MD Unavailable [phone] Caroline Duque RN Unavailable [phone] Martha White MD Unavailable Pedrito Ramirez MD Unavailable [phone] Rodney Natarajan MD Unavailable [phone] Martha White MD Unavailable Ankita Park MD Unavailable [phone] Ankita Park MD Unavailable [phone] Mio Mclean MD Unavailable [phone] Luna Simons MD Unavailable Luna Simons MD Unavailable Jose Zaragoza NP Unavailable Mio Mclean MD Unavailable [phone] Luna Simons MD Unavailable Nadja Hagen MD Unavailable Batool Atkinson PhD LP Unavailable [phone] Prisca Miller MD Unavailable [phone] IvetteJennyfer vaughan KEVIN DEV OPS ENGINEER Unavailable + Ramin Steelejulieth Rodrigues APRN DEV OPS ENGINEER Unavailable + Sadaf Apple NP Unavailable Unavailable Clinic - [facility] Unavailabl e Yamel Saha PA-C Unavailable [phone] Luna Simons MD Unavailable [phone] Reason for Visit * Reason Onset Date Comments Symptoms 04/22/2020 Pt has a referra l to see for dermatology Encounter Details Date Type Department Care Team (Late st Contact Info) Description 04/22/2020 Telephone [facility] [address] [place] [address] None Symptoms (Pt has a referral to see for dermatology) Social History Tobacco Use Types Packs/Day Years [...] How often do you attend chur or cheondoism services? More than 4 times per year [...] Answer Date Recorded PHQ-2 Score 0 [facility] Questionnaire Answer Date [...] AM CDT documented as of this encounter Functional Status * Audit-C Score Answer Date of Assessment Author 0 06/22/2023 4:07 PM TRAFFIC TECHNICIAN Braden Fleming * Q1: How often do you have a drink containing alcohol? Answer Date of Assessment Author Never 06/22/2023 4:07 PM TRAFFIC TECHNICIAN Braden Fleming * Q2: How many drinks containing alcohol do you have on a typical day when you are drinking? Answer Date of Assessment Author Patient does not drink 06/22/2023 4:07 PM TRAFFIC TECHNICIAN Drew Naranjo * Q3: How often do you have six or more drinks on one occasion? Answer Date of Assessment Author Never 06/22/2023 4:07 PM TRAFFIC TECHNICIAN Braden Fleming documented as of this encounter Miscellaneous Notes * Telephone Encounter - Krys Toribio CMA - 04/22/2020 4:00 PM TRAFFIC TECHNICIAN I called and left a informing Anjelica that we do not have anything soon but she can get scheduledat our next available. Clinic number provided for call back. FIC TECHNICIAN * Telephone Encounter - No Mccloud - 04/22/2020 3:06 PM [facility] Phone Message May a detailed message be left on voicemail: yes Reason for Call: Other: Pt has a referral to see for dermatology from her oncologist and would likeAppt YENNY I showed end Of May and she said she needs to be seen sooner because of the Cancer isgrowing, Please call Pt to discuss Thank you, Action Taken: Message routed [facility] derm Travel Screening: Not Applicable FIC TECHNICIAN documented in this encounter Plan of Treatment Upcoming Encounters Date Type Department Care Team (Late st Contact Info) Description 09/15/2025 9:15 AM CDT Ancillary Procedure [facility] Breast [facility] Imaging [address] 2nd [place] [address] Luna Simons MD 420 [facility] 480 [place], [place] 357935 09/15/2025 10:00 AM CDT Oncology Visit [facility] [address] [place] [address] Luna Simons MD [address] [place] [address] documented as of this encounter Visit Diagnoses Not on filedocumented in this encounter Additional Health Concerns Infection Onset Date Last Indicated Resolved Time Rule Out COVID-19 01/24/2023 01/24/2023 01/24/2023 10:32 PM CDT documented as of this encounter Care Teams Armoured Car Escort Relationship Specialty Start Date End Date Cyndie Eisenberg NP [address] [place] [address] PCP - General 09/25/19 Rodney Natarajan MD [address] [place] [address] 195 [place], [place] [phone] General Surgery 09/25/19 Luna Simons MD [address] [place] [address] 480 [place] [address] Hematology 09/25/19 Caroline Duque, RN Specialty Carpet Loom Fixer Breast Oncology 09/30/19 Martha White MD [address] [place] [address] [place], [place] 407594 wood pole treater 11/01/19 Pedrito Ramirez MD 6405 [facility] [address] [place], [place] 819035 Assigned Heart and Vascular Provider 03/20/20 11/07/20 Rodney Natarajan MD 420 [facility] 195 [place], [place] 40330[address] Assigned Surgical Provider 03/20/20 08/07/21 Martha White MD [address] [place] [address] [place], [place] 872764 Assigned Behavioral Health Provider 03/20/20 05/02/20 Ankita Park MD 2450 [facility] [place] [address] Assigned Behavioral Health Provider 05/03/20 06/29/23 Ankita Park MD 2450 [facility] [place] [address] wood pole treater 06/10/20 Mio Mclean MD [address] [place] [address] 494 [place], [place] 429415 Assigned Cancer Care Provider 05/10/20 07/25/20 Luna Simons MD 420 [facility] 480 [place] [address] Assigned Cancer Care Provider 04/22/20 05/09/20 Luna Simons MD 420 [facility] 480 [place] [address] Assigned Cancer Care Provider 07/26/20 06/26/21 Jose Zaragoza, BLACK LEATHER TRIMMER 6405 [facility] [place] [place], [place] 843085 Assigned Heart and Vascular Provider 11/08/20 02/04/22 Mio Mclean MD 420 [facility] 494 [place], [place] 371905 Assigned Cancer Care Provider 06/27/21 09/11/21 Luna Simons MD 420 [facility] 480 [place] [address] Assigned Cancer Care Provider 09/12/21 01/18/24 Nadja Hagen MD [address] 6th [address] 2, [address] [place], [place] 363434 Resident Psychiatry 04/01/22 05/13/24 Batool Atkinson, PhD LP [address] [place], [place] 095864 Psychologist Licensed Mental Health 04/01/22 Prisca Miller MD 516 [facility] 295 [place], [place] 901275 Resident Neurology 02/10/23 Jennyfer Steele APRN DEV OPS ENGINEER 2312 S [facility] [address] [place], [place] [address] Nurse Practitioner Psychiatry 02/23/23 Jennyfer Steele APRN DEV OPS ENGINEER [address] [facility] [address] [place], [place] 271094 Assigned Behavioral Health Provider 06/30/23 Sadaf Aplpe NP Assigned PCP 07/21/23 09/18/23 [facility] [address] [place] [address] Assigned PCP 09/19/23 Yamel Saha PA-C [address] [place] [address] [id number] Assigned Cancer Care Provider 01/19/24 04/19/24 Luna Simons MD [address] [place] [address] [id number] Assigned Cancer Care Provider 04/20/24 documented as of this encounter
--- OUTSIDE RECORDS SUMMARY | 2024-10-15 17:10 | XMS_ITS | Encounter Summary ---
Author Organization [place] Address [address] [place] [address] Care Team Providers Care Administrative Services Coordinator Name Role Phone Cyndie Eisenberg NP Primary Care Provider + Rodney Natarajan MD Unavailable [phone] Luna Simons MD Unavailable Caroline Duque RN Unavailable [phone] Martha White MD Unavailable Pedrito Ramirez MD Unavailable [phone] Rodney Natarajan MD Unavailable [phone] Luna Simons MD Unavailable Martha White MD Unavailable Mio Mclean MD Unavailable [phone] Ankita Park MD Unavailable [phone] Ankita Park MD Unavailable [phone] Mio Mclean MD Unavailable [phone] Luna Simons MD Unavailable Luna Simons MD Unavailable Jose Zaragoza NP Unavailable Mio Mclean MD Unavailable [phone] Luna Simons MD Unavailable [phone] Nadja Hagen MD Unavailable [phone] Batool Atkinson PhD LP Unavailable [phone] Prisca Miller MD Unavailable [phone] Jennyfer Steele MARKETING DEVELOPMENT REPRESENTATIVE CORONARY CARE UNIT NURSE Unavailable + IvetteJennyfer APRN CORONARY CARE UNIT NURSE Unavailable + Sadaf Apple NP Unavailable Unavailable Clinic - [facility] Unavailabl e Yamel Saha PA-C Unavailable [phone] Luna Simons MD Unavailable [phone] Encounter Details Date Type Department Care Team (Late st Contact Info) Description 09/30/2019 MyC Medical Advice [facility] [address] [place] [address] Luna Simons MD [address] [place] [address] Social History Tobacco Use Types Packs/Day [...] Description 09/15/2025 9:15 AM CDT Ancillary Procedure [facility] Breast Center Imaging [place] [address] [place] [address] 2nd [place] [address] Luna Simons MD [address] [place] [address] 09/15/2025 10:00 AM CDT Oncology Visit [facility] 909 [place] [address] Luna Simons MD 420 [facility] 480 [place] [address] documented as of this encounter Visit Diagnoses Not on filedocumented in this encounter Additional Health Concerns Infection Onset Date Last Indicated Resolved Time Rule Out COVID-19 01/24/2023 01/24/2023 01/24/2023 10:32 PM CDT documented as of this encounter Care Teams Administrative Services Coordinator Relationship Specialty Start Date End Date Cyndie Eisenberg FIRE FIGHTER [address] [place] [address] PCP - General 09/25/19 Rodney Natarajan MD 420 [facility] 195 [place] [address] General Surgery 09/25/19 Luna Simons MD [address] [place] [address] 480 [place] [address] Hematology 09/25/19 Caroline Duque, RN Specialty Tyre Retreader Breast Oncology 09/30/19 Martha White MD [address] [place] [address] [place], [place] 228394 dye padder operator 11/01/19 Pedrito Ramirez MD [address] [place] [address] [place] [address] Assigned Heart and Vascular Provider 03/20/20 11/07/20 Rodney Natarajan MD 420 [place] [facility] 195 [place] [address] Assigned Surgical Provider 03/20/20 08/07/21 Luna Simons MD 420 [place] [facility] 480 [place] [address] Assigned Cancer Care Provider 03/20/20 04/11/20 Martha White MD [address] [place] [address] F[address] [place], [place] 658884 Assigned Behavioral Health Provider 03/20/20 05/02/20 Mio Mclean MD 420 [place] [facility] 494 [place] [address] Assigned Cancer Care Provider 04/12/20 04/21/20 Ankita Park MD [address] [address] Assigned Behavioral Health Provider 05/03/20 06/29/23 Ankita Park MD [address] [phone] dye padder operator 06/10/20 Mio Mclean MD 420 [place] [facility] 494 [place] [address] Assigned Cancer Care Provider 05/10/20 07/25/20 Luna Simons MD 420 [place] [facility] 480 [place] [address] Assigned Cancer Care Provider 04/22/20 05/09/20 Luna Simons MD 420 [facility] 480 [place], [place] 074715 Assigned Cancer Care Provider 07/26/20 06/26/21 Jose Zaragoza, FIRE FIGHTER 6405 [facility] [place] 189655 Assigned Heart and Vascular Provider 11/08/20 02/04/22 Mio Mclean MD 420 [facility] 494 [place], [place] 256395 Assigned Cancer Care Provider 06/27/21 09/11/21 Luna Simons MD 420 [facility] 480 [place], [place] 048205 Assigned Cancer Care Provider 09/12/21 01/18/24 Nadja Hagen MD [facility]2 S [facility] Floor 2, [address] [place], [place] 2[address]24 Resident Psychiatry 04/01/22 05/13/24 Batool Atkinson, PhD LP [address] [place] [address] [address]VE [address] [place], [place] 820964 Psychologist Licensed Mental Health 04/01/22 Prisca Miller MD 6 [facility] 295 [place], [place] 470605 Resident Neurology 02/10/23 Jennyfer Steele, MARKETING DEVELOPMENT REPRESENTATIVE CORONARY CARE UNIT NURSE [address] [place] [address] [place], [place] 890174 Nurse Practitioner Psychiatry 02/23/23 Jennyfer Steele APRN CORONARY CARE UNIT NURSE [address] [place] 7754775 [place], [place] 372694 Assigned Behavioral Health Provider 06/30/23 Sadaf Apple NP Assigned PCP 07/21/23 09/18/23 [facility] [id number] [place] [address] Assigned PCP 09/19/23 Yamel Saha PA-C [address] 351305 Assigned Cancer Care Provider 01/19/24 04/19/24 Luna Simons MD [address] 711925 Assigned Cancer Care Provider 04/20/24 documented as of this encounter
--- OUTSIDE RECORDS SUMMARY | 2024-10-15 17:10 | XMS_ITS | Encounter Summary ---
Author Organization [place] Address [address] [place] [address] Care Team Providers Care Bowling Ball Weigher And Packer Name Role Phone Cyndie Eisenberg NP Primary Care Provider + Rodney Natarajan MD Unavailable [phone] Luna Simons MD Unavailable [phone] Caroline Duque RN Unavailable [phone] Martha White MD Unavailable Pedrito Ramirez MD Unavailable [phone] Rodney Natarajan MD Unavailable [phone] Martha White MD Unavailable Ankita Park MD Unavailable [phone] Ankita Park MD Unavailable [phone] Mio Mclean MD Unavailable [phone] Luna Simons MD Unavailable Luna Simons MD Unavailable Jose Zaragoza NP Unavailable [phone] Mio Mclean MD Unavailable [phone] Luna Simons MD Unavailable Nadja Hagen MD Unavailable Batool Atkinson PhD LP Unavailable [phone] Prisca Miller MD Unavailable [phone] Jennyfer Steele KEVIN GAMING SURVEILLANCE OBSERVER Unavailable + Jennyfer Steele KEVIN GAMING SURVEILLANCE OBSERVER Unavailable + Sadaf Apple NP Unavailable Unavailable [facility] Unavailabl e Yamel Saha PA-C Unavailable [phone] Luna Simons MD Unavailable [phone] Encounter Details Date Type Department Care Team (Late st Contact Info) Description 04/30/2020 MyC Medical Advice [facility] Preoperative Assessment Center [address] 5th [place] [address] Valerie Pike RN Social History Tobacco Use Types Packs/Day [...] have Coronavirus / COVID-19? No / Unsure 05/03/2020 11:32 AM HEALTH INFORMATION MANAGER documented as of this encounter Plan of Treatment Upcoming Encounters Date Type Department Care Team (Late st Contact Info) Description 09/15/2025 9:15 AM CDT Ancillary Procedure [facility] Breast Center Imaging [address] 2nd [place] [address] Luna Simons MD [address] [place] [address] 480 [place] [address] 09/15/2025 10:00 AM CDT Oncology Visit [facility] 909 [place] [phone] Luna Simons MD [address] 438785 documented as of this encounter Visit Diagnoses Not on filedocumented in this encounter Additional Health Concerns Infection Onset Date Last Indicated Resolved Time Rule Out COVID-19 01/24/2023 01/24/2023 01/24/2023 10:32 PM CDT documented as of this encounter Care Teams Bowling Ball Weigher And Packer Relationship Specialty Start Date End Date Cyndie Eisenberg NP [address] [place] [address] PCP - General 09/25/19 Rodney Natarajan MD [address] [place] [address] 733055 General Surgery 09/25/19 Luna Simons MD [address] [place] [address] 123465 Hematology 09/25/19 Caroline Duque, RN Specialty Community Health Program Representative Breast Oncology 09/30/19 Martha White MD [address] [facility] [place] [address] [place] [address] film projector operator 11/01/19 Pedrito Ramirez MD [address] [facility] [address] [place] [address] Assigned Heart and Vascular Provider 03/20/20 11/07/20 Rodney Natarajan MD [address] [place] [address] Assigned Surgical Provider 03/20/20 08/07/21 Martha White MD [address] [place] [address] [address] [place], [place] 837364 Assigned Behavioral Health Provider 03/20/20 05/02/20 Ankita Park MD [address] [place] [address] Assigned Behavioral Health Provider 05/03/20 06/29/23 Ankita Park MD [address] [place] [phone] film projector operator 06/10/20 Mio Mclean MD 420 [facility] 494 [place] [address] Assigned Cancer Care Provider 05/10/20 07/25/20 Luna Simons MD [address] [place] [address] 480 [place], [place] 254925 Assigned Cancer Care Provider 04/22/20 05/09/20 Luna Simons MD 420 [facility] 480 [place] [address] Assigned Cancer Care Provider 07/26/20 06/26/21 Jose Zaragoza, LOGISTICS OPERATIONS MANAGER 6405 [place] [address] Assigned Heart and Vascular Provider 11/08/20 02/04/22 Mio Mclean MD 420 [facility] 494 [place] [address] Assigned Cancer Care Provider 06/27/21 09/11/21 Luna Simons MD 420 [facility] 480 [place] [address] Assigned Cancer Care Provider 09/12/21 01/18/24 Nadja Hagen MD [facility]2 S [facility] Floor 2, [address] [place], [place] 751084 Resident Psychiatry 04/01/22 05/13/24 Batool Atkinson, PhD LP [address] [place] [address] [address] [place], [place] 464924 Psychologist Licensed Mental Health 04/01/22 Prisca Miller MD 516 [facility] 295 [place], [place] 509825 Resident Neurology 02/10/23 Jennyfer Steele APRN GAMING SURVEILLANCE OBSERVER 2312 [address] [facility] [place] [address] [place], [place] 06[address] Nurse Practitioner Psychiatry 02/23/23 Jennyfer Steele APRN GAMING SURVEILLANCE OBSERVER [facility]2 S [facility] [place] [address] [place] [address] Assigned Behavioral Health Provider 06/30/23 Sadaf Apple NP Assigned PCP 07/21/23 09/18/23 [facility] [address] [place] [address] Assigned PCP 09/19/23 Yamel Saha PA-C [address] [address] Assigned Cancer Care Provider 01/19/24 04/19/24 Luna Simons MD [address] [place] [address] 317735 Assigned Cancer Care Provider 04/20/24 documented as of this encounter
--- OUTSIDE RECORDS SUMMARY | 2024-10-15 17:10 | XMS_ITS | Encounter Summary ---
Author Organization [place] Address [address] [place] [address] Care Team Providers Care Auxiliary Equipment Tender Name Role Phone Cyndie Eisenberg NP Primary Care Provider + Rodney Natarajan MD Unavailable [phone] Luna Simons MD Unavailable Caroline Duque RN Unavailable [phone] Martha White MD Unavailable [phone] Pedrito Ramirez MD Unavailable [phone] Rodney Natarajan MD Unavailable [phone] Martha White MD Unavailable Ankita Park MD Unavailable [phone] Ankita Park MD Unavailable [phone] Mio Mclean MD Unavailable [phone] Luna Simons MD Unavailable Luna Simons MD Unavailable Jose Zaragoza NP Unavailable Mio Mclean MD Unavailable [phone] Luna Simons MD Unavailable [phone] Nadja Hagen MD Unavailable Batool Atkinson PhD LP Unavailable [phone] Prisca Miller MD Unavailable [phone] Jennyfer Steele KEVIN TIMING MACHINE OPERATOR Unavailable + Jennyfer Steele KEVIN TIMING MACHINE OPERATOR Unavailable + Sadaf Apple NP Unavailable Unavailable Clinic - [facility] Unavailabl e Yamel Saha PA-C Unavailable [phone] Luna Simons MD Unavailable [phone] Encounter Details Date Type Department Care Team (Late st Contact Info) Description 05/01/2020 MyC Medical Advice [facility] [address] [place] [address] Ivelisse Vásquez, ASHLIE Social History Tobacco Use Types Packs/Day [...] COVID-19? No / Unsure 05/03/2020 11:32 AM V BLOCK SAW OPERATOR documented as of this encounter Plan of Treatment Upcoming Encounters Date Type Department Care Team (Late st Contact Info) Description 09/15/2025 9:15 AM CDT Ancillary Procedure [facility] Breast Center Imaging [place] 909 [facility] 2nd [place] [address] Luna Simons MD 420 [facility] 480 [place] [address] 09/15/2025 10:00 AM CDT Oncology Visit [facility] 909 [place] [phone] Luna Simons MD [address] [place] [address] 480 [place], [place] 293815 documented as of this encounter Visit Diagnoses Not on filedocumented in this encounter Additional Health Concerns Infection Onset Date Last Indicated Resolved Time Rule Out COVID-19 01/24/2023 01/24/2023 01/24/2023 10:32 PM CDT documented as of this encounter Care Teams Auxiliary Equipment Tender Relationship Specialty Start Date End Date Cyndie Eisenberg NP [address] [place] [id number] PCP - General 09/25/19 Rodney Natarajan MD [address] [place] [address] 129125 General Surgery 09/25/19 Luna Simons MD [address] [place] [address] 331395 Hematology 09/25/19 Caroline Duque, RN Specialty Square Cutter Breast Oncology 09/30/19 Martha White MD [address] [place] [place] [address] [address] [place] [address] airbrush artist technical 11/01/19 Pedrito Ramirez MD [address] [facility] [address] [place] [address] Assigned Heart and Vascular Provider 03/20/20 11/07/20 Rodney Natarajan MD [address] [place] [address] 891685 Assigned Surgical Provider 03/20/20 08/07/21 Martha White MD [address] [facility] F[address] [place], [place] 465404 Assigned Behavioral Health Provider 03/20/20 05/02/20 [place] [address] [place] [address] Assigned Behavioral Health Provider 05/03/20 06/29/23 [place] [address] [place] [address] airbrush artist technical 06/10/20 Mio Mclean MD 420 [facility] 494 [place], [place] 198545 Assigned Cancer Care Provider 05/10/20 07/25/20 Luna Simons MD 420 [facility] 480 [place], [place] 849095 Assigned Cancer Care Provider 04/22/20 05/09/20 Luna Simons MD 420 [facility] 480 [place], [place] 310815 Assigned Cancer Care Provider 07/26/20 06/26/21 Jose Zaragoza, INTERNAL COMBUSTION ENGINE ASSEMBLER 6405 [facility] [place] [id number] Assigned Heart and Vascular Provider 11/08/20 02/04/22 Mio Mclean MD 420 [facility] 494 [place] [address] Assigned Cancer Care Provider 06/27/21 09/11/21 Luna Simons MD 420 [facility] 480 [place] [address] Assigned Cancer Care Provider 09/12/21 01/18/24 Nadja Hagen MD [facility] S [facility] Floor 2, [address] [place], [place] 453414 Resident Psychiatry 04/01/22 05/13/24 Batool Atkinson, PhD LP [address] [place] [address] [address] [place] [address] Psychologist Licensed Mental Health 04/01/22 Prisca Miller MD 516 [facility] 295 [place], [place] 458355 Resident Neurology 02/10/23 Jennyfer Steele APRN TIMING MACHINE OPERATOR [facility]2 S [facility] [address] [place], [place] 16[address]94 Nurse Practitioner Psychiatry 02/23/23 Jennyfer Steele APRN TIMING MACHINE OPERATOR [facility] S [facility] [address] [place], [place] 761734 Assigned Behavioral Health Provider 06/30/23 Sadaf Apple NP Assigned PCP 07/21/23 09/18/23 [facility] [address] [place] [address] Assigned PCP 09/19/23 Yamel Saha PA-C [address] [place] [address] Assigned Cancer Care Provider 01/19/24 04/19/24 Luna Simons MD [address] [place] [address] Assigned Cancer Care Provider 04/20/24 documented as of this encounter
--- OUTSIDE RECORDS SUMMARY | 2024-10-15 17:10 | XMS_ITS | Encounter Summary ---
Author Organization [place] Address [address] [place] [address] Care Team Providers Care Mining Detail Draftsperson Name Role Phone Cyndie Eisenberg NP Primary Care Provider + Rodney Natarajan MD Unavailable [phone] Luna Simons MD Unavailable [phone] Caroline Duque RN Unavailable [phone] Martha White MD Unavailable [phone] Pedrito Ramirez MD Unavailable [phone] Rodney Natarajan MD Unavailable [phone] Martha White MD Unavailable Ankita Park MD Unavailable [phone] Ankita Park MD Unavailable [phone] Mio Mclean MD Unavailable [phone] Luna Simons MD Unavailable Luna Simons MD Unavailable Jose Zaragoza NP Unavailable [phone] Mio Mclean MD Unavailable [phone] Luna Simons MD Unavailable Nadja Hagen MD Unavailable Batool Atkinson PhD LP Unavailable Prisca Miller MD Unavailable [phone] Jennyfer Steele KEVIN DEPOSITION REPORTER Unavailable + Jennyfer Steele KEVIN DEPOSITION REPORTER Unavailable + Sadaf Apple NP Unavailable Unavailable Clinic - [facility] Unavailabl e Yamel Saha PA-C Unavailable [phone] Luna Simons MD Unavailable +[phone] Encounter Details Date Type Department Care Team (Late Contact Info) Description 04/22/2020 MyC Medical Advice [facility] [place] [id number] [place] [address] Melisa Santos Social History Tobacco Use Types Packs/Day Years [...] COVID-19? No / Unsure 04/22/2020 8:28 AM DRY KILN BURNER documented as of this encounter Plan of Treatment Upcoming Encounters Date Type Department Care Team (Late st Contact Info) Description 09/15/2025 9:15 AM CDT Ancillary Procedure [facility] Breast Center Imaging [place] 909 [facility] 2nd [place] [address] Luna Simons MD [address] [place] [address] 09/15/2025 10:00 AM CDT Oncology Visit [facility] 909 [place] [phone] Luna Simons MD [address] 316535 documented as of this encounter Visit Diagnoses Not on filedocumented in this encounter Additional Health Concerns Infection Onset Date Last Indicated Resolved Time Rule Out COVID-19 01/24/2023 01/24/2023 01/24/2023 10:32 PM CDT documented as of this encounter Care Teams Mining Detail Draftsperson Relationship Specialty Start Date End Date Cyndie Eisenberg NP [address] [place] [address] PCP - General 09/25/19 Rodney Natarajan MD [address] 993995 General Surgery 09/25/19 Luna Simons MD [address] 003605 Hematology 09/25/19 Caroline Duque, RN Specialty Bridge Design Engineer Breast Oncology 09/30/19 Martha White MD [address] [place] [address] [address] [place] [address] cat and dog bather 11/01/19 Pedrito Ramirez MD 6405 [facility] [address] [place], [place] 032315 Assigned Heart and Vascular Provider 03/20/20 11/07/20 Rodney Natarajan MD [address] 749465 Assigned Surgical Provider 03/20/20 08/07/21 Martha White MD [facility] [address] [place], [place] 431444 Assigned Behavioral Health Provider 03/20/20 05/02/20 Ankita Park MD [address] [place] [address] Assigned Behavioral Health Provider 05/03/20 06/29/23 Ankita Park MD [address] [place] [address] cat and dog bather 06/10/20 Mio Mclean MD [address] [address] Assigned Cancer Care Provider 05/10/20 07/25/20 Luna Simons MD [address] [address] Assigned Cancer Care Provider 04/22/20 05/09/20 Luna Simons MD [address] [address] Assigned Cancer Care Provider 07/26/20 06/26/21 Jose Zaragoza, GAS TESTER 6405 [facility] [place] [address] Assigned Heart and Vascular Provider 11/08/20 02/04/22 Mio Mclean MD [address] [place] [address] Assigned Cancer Care Provider 06/27/21 09/11/21 Luna Simons MD 420 [facility] 480 [place] [address] Assigned Cancer Care Provider 09/12/21 01/18/24 Nadja Hagen MD [address] [place] [address] Floor 2, [address] [place], [place] [address] Resident Psychiatry 04/01/22 05/13/24 Batool Atkinson, PhD LP [address] [place] [address] [address] [place], [place] 748274 Psychologist Licensed Mental Health 04/01/22 Prisca Miller MD 516 [facility] 295 [place], [place] 0[address]755 Resident Neurology 02/10/23 Jennyfer Steele APRN DEPOSITION REPORTER [address] [place] [address], [place] [address] [place] [address] Nurse Practitioner Psychiatry 02/23/23 Jennyfer Steele APRN DEPOSITION REPORTER [address] [place] [address] [address]275 [place] [address] Assigned Behavioral Health Provider 06/30/23 Sadaf Apple NP Assigned PCP 07/21/23 09/18/23 [facility] [address] [place] [address] Assigned PCP 09/19/23 Yamel Saha PA-C [address] 586675 Assigned Cancer Care Provider 01/19/24 04/19/24 Luna Simons MD [address] 612945 Assigned Cancer Care Provider 04/20/24 documented as of this encounter
--- OUTSIDE RECORDS SUMMARY | 2024-10-15 17:10 | XMS_ITS | Encounter Summary ---
Author Organization [place] Address [address] [place] [address] Care Team Providers Care Quality Systems Manager Name Role Phone Cyndie Eisenberg NP Primary Care Provider + Rodney Natarajan MD Unavailable [phone] Luna Simons MD Unavailable Caroline Duque RN Unavailable [phone] Martha White MD Unavailable Pedrito Ramirez MD Unavailable [phone] Rodney Natarajan MD Unavailable [phone] Luna Simons MD Unavailable Martha White MD Unavailable Mio Mclean MD Unavailable Ankita Park MD Unavailable [phone] Ankita Park MD Unavailable [phone] Mio Mclean MD Unavailable [phone] Luna Simons MD Unavailable Luna Simons MD Unavailable Jose Zaragoza NP Unavailable [phone] Mio Mclean MD Unavailable [phone] Luna Simons MD Unavailable [phone] Nadja Hagen MD Unavailable [phone] Batool Atkinson PhD LP Unavailable [phone] Prisca Miller MD Unavailable [phone] Ramin Steelen Ravi PROGRAM EVALUATION CONSULTANT SANITARY ENGINEERING TEACHER Unavailable + IvetteJennyfer vaughan APRN SANITARY ENGINEERING TEACHER Unavailable + Sadaf Apple NP Unavailable Unavailable Clinic - [facility] Unavailabl e Yamel Saha PA-C Unavailable [phone] Luna Simons MD Unavailable [phone] Encounter Details Date Type Department Care Team (Late st Contact Info) Description 01/01/2020 MyC Medical Advice [facility] Cancer [address] [address] [facility] Social History Tobacco Use Types Packs/Day [...] Procedure [facility] Breast Center Imaging [address] 2nd [place] [address] Luna Simons MD [address] [place] [address] 09/15/2025 10:00 AM CDT Oncology Visit [facility] Cancer [address] [place] [phone] Luna Simons MD 420 [facility] 480 [place], [place] 840175 documented as of this encounter Visit Diagnoses Not on filedocumented in this encounter Additional Health Concerns Infection Onset Date Last Indicated Resolved Time Rule Out COVID-19 01/24/2023 01/24/2023 01/24/2023 10:32 PM CDT documented as of this encounter Care Teams Quality Systems Manager Relationship Specialty Start Date End Date Cyndie Eisenberg, CCU NURSE [address] [place] [address] PCP - General 09/25/19 Rodney Natarajan MD [address] [place] [address] 343215 General Surgery 09/25/19 Luna Simons MD [address] [place] [address] 348655 Hematology 09/25/19 Caroline Duque, RN Specialty Software Sales Breast Oncology 09/30/19 Martha White MD [facility] [place] [address] [address] [place] [address] keyboard operator 11/01/19 Pedrito Ramirez MD [address] [facility] [address] [place], [place] 0[address] Assigned Heart and Vascular Provider 03/20/20 11/07/20 Rodney Natarajan MD [address] [place] [address] 195 [place], [place] 821245 Assigned Surgical Provider 03/20/20 08/07/21 Luna Simons MD 420 [facility] SE [facility] 480 [place] [address] Assigned Cancer Care Provider 03/20/20 04/11/20 Martha White MD [facility] [address] [place], [place] [address] Assigned Behavioral Health Provider 03/20/20 05/02/20 Mio Mclean MD [address] [address] Assigned Cancer Care Provider 04/12/20 04/21/20 Ankita Park MD [address] [place] [phone] Assigned Behavioral Health Provider 05/03/20 06/29/23 Ankita Park MD [address] [place] [phone] keyboard operator 06/10/20 Mio Mclean MD [address] [address] Assigned Cancer Care Provider 05/10/20 07/25/20 Luna Simons MD 420 [facility] 480 [place] [address] Assigned Cancer Care Provider 04/22/20 05/09/20 Luna Simons MD 420 [facility] 480 [place] [address] Assigned Cancer Care Provider 07/26/20 06/26/21 Jose Zaragoza, CCU NURSE 6405 [place] [address] Assigned Heart and Vascular Provider 11/08/20 02/04/22 Mio Mclean MD 420 [facility] 494 [place] [address] Assigned Cancer Care Provider 06/27/21 09/11/21 Luna Simons MD 420 [facility] 480 [place] [address] Assigned Cancer Care Provider 09/12/21 01/18/24 Nadja Hagen MD [address] [place] [address] Floor 2, [address] [place], [place] 08[address] Resident Psychiatry 04/01/22 05/13/24 Batool Atkinson, PhD LP 2450 [facility] [address] [place], [place] 545504 Psychologist Licensed Mental Health 04/01/22 Prisca Miller MD 6 [facility] 295 [place], [place] [address]85 Resident Neurology 02/10/23 Jennyfer Steele APRN SANITARY ENGINEERING TEACHER [facility] [place] [address] [place] [address] Nurse Practitioner Psychiatry 02/23/23 Jennyfer Steele APRN SANITARY ENGINEERING TEACHER [facility]2 S [facility] F275 [place] [address] Assigned Behavioral Health Provider 06/30/23 Sadaf Apple NP Assigned PCP 07/21/23 09/18/23 [facility] [address] [place] [address] Assigned PCP 09/19/23 Ymael Saha PA-C [address] 462895 Assigned Cancer Care Provider 01/19/24 04/19/24 Luna Simons MD [address] [address] Assigned Cancer Care Provider 04/20/24 documented as of this encounter
--- OUTSIDE RECORDS SUMMARY | 2024-10-15 17:10 | XMS_ITS | Encounter Summary ---
Author Organization [place] Address [address] [place] [address] Care Team Providers Care Ceramic Tiler Name Role Phone Cyndie Eisenberg NP Primary Care Provider + Rodney Natarajan MD Unavailable [phone] Luna Simons MD Unavailable [phone] Caroline Duque RN Unavailable [phone] Martha White MD Unavailable Pedrito Ramirez MD Unavailable Rodney Natarajan MD Unavailable [phone] Luna Simons MD Unavailable [phone] Martha White MD Unavailable [phone] Mio Mclean MD Unavailable [phone] Ankita Park MD Unavailable [phone] Anktia Park MD Unavailable [phone] Mio Mclean MD Unavailable [phone] Luna Simons MD Unavailable [phone] Luna Simons MD Unavailable Jose Zaragoza NP Unavailable Mio Mclean MD Unavailable [phone] Luna Simons MD Unavailable [phone] Nadja Hagen MD Unavailable +[phone] Batool Atkinson PhD LP Unavailable [phone] Prisca Miller MD Unavailable [phone] Jennyfer Steele APRN INTERMODAL TRUCK DRIVER Unavailable + Jennyfer Steele APRN INTERMODAL TRUCK DRIVER Unavailable + Sadaf Apple NP Unavailable Unavailable Clinic - [facility] Unavailabl e Yamel Saha PA-C Unavailable [phone] Luna Simons MD Unavailable [phone] Reason for Visit * Reason Onset Date Comments Medication Question 12/16/2019 Encounter Details Date Type Department Care Team (Latest Contact Info) Description 12/16/2019 [facility] Medical Advice [facility] [place] [id number] [address] [address] Martha White MD [address] [address] Medication Question Social History Tobacco Use Types Packs/Day Years [...] encounter Miscellaneous Notes * Telephone Encounter - Frances Linn RN - 12/18/2019 8:06 AM CDT Sent updated Rx for duloxetine 40 mg capsules electronically to the pharmacy and informed patient to take one capsule a day through [facility]. Routed message to Dr. White for recommendations regarding question about Wellbutrin XL movingforward. documented in this encounter Plan of Treatment Upcoming Encounters Date Type Department Care Team (Late st Contact Info) Description 09/15/2025 9:15 AM CDT Ancillary Procedure [facility] Breast Center Imaging [place] 909 [facility] 2nd [place] [phone] Luna Simons MD 420 [facility] 480 [place], [place] [address] 09/15/2025 10:00 AM CDT Oncology Visit [facility] 909 [place] [address] Luna Simons MD 420 [facility] 480 [place], [place] [address] documented as of this encounter Visit Diagnoses Diagnosis Anxiety Anxiety state, unspecified documented in this encounter Additional Health Concerns Infection Onset Date Last Indicated Resolved Time Rule Out COVID-19 01/24/2023 01/24/2023 01/24/2023 10:32 PM CDT documented as of this encounter Care Teams Ceramic Tiler Relationship Specialty Start Date End Date Cyndie Eisenberg NP [address] [place] [address] PCP - General 09/25/19 Rodney Natarajan MD 420 [facility] 195 [place], [place] 7440[address] General Surgery 09/25/19 Luna Simons MD 420 [facility] 480 [place], [place] 0312[address] Hematology 09/25/19 Caroline Duque, RN Specialty Burn Out Scarfing Operator Breast Oncology 09/30/19 Martha White MD [address] [place] [address] [address] [place], [place] 620414 home health nurse licensed practical 11/01/19 Pedrito Ramirez MD 6405 [facility] [address] [place], [place] 520195 Assigned Heart and Vascular Provider 03/20/20 11/07/20 Rodney Natarajan MD 420 [facility] SE [facility] 195 [place], [place] 39[address] Assigned Surgical Provider 03/20/20 08/07/21 Luna Simons MD 420 [facility] 480 [place], [place] 6[address]74455 Assigned Cancer Care Provider 03/20/20 04/11/20 Martha White MD [address] [place] [address] [address] [place], [place] [address] Assigned Behavioral Health Provider 03/20/20 05/02/20 Mio Mclean MD 420 [facility] 494 [place], [place] 388[address] Assigned Cancer Care Provider 04/12/20 04/21/20 Ankita Park MD 2450 [facility] [address] [place] [address] Assigned Behavioral Health Provider 05/03/20 06/29/23 Ankita Park MD [address] [address] home health nurse licensed practical 06/10/20 Mio Mclean MD [address] 148055 Assigned Cancer Care Provider 05/10/20 07/25/20 Luna Simons MD 420 [facility] 480 [place] [address] Assigned Cancer Care Provider 04/22/20 05/09/20 Luna Simons MD [address] [address] Assigned Cancer Care Provider 07/26/20 06/26/21 Jose Zaragoza, OCCUPATIONAL THERAPY AIDES TEACHER 6405 [facility] [place] [address] Assigned Heart and Vascular Provider 11/08/20 02/04/22 Mio Mclean MD [address] [place] [address] Assigned Cancer Care Provider 06/27/21 09/11/21 Luna Simons MD [address] [place] [address] Assigned Cancer Care Provider 09/12/21 01/18/24 Nadja Hagen MD 2312 S [facility] Floor 2, [address] [place] [address] Resident Psychiatry 04/01/22 05/13/24 Batool Atkinson, PhD LP [address] [place] [address] F282 [place] [address] Psychologist Licensed Mental Health 04/01/22 Prisca Miller MD 516 [facility] 295 [place] [address] Resident Neurology 02/10/23 Jennyfer Steeel APRN INTERMODAL TRUCK DRIVER [address] [place], [place] 45[address] [place] [address] Nurse Practitioner Psychiatry 02/23/23 Jennyfer Steele APRN INTERMODAL TRUCK DRIVER [address] [place], [place] 45[address] [place] [address] Assigned Behavioral Health Provider 06/30/23 Sadaf Apple NP Assigned PCP 07/21/23 09/18/23 [facility] [address] [place] [address] Assigned PCP 09/19/23 Yamel Saha PA-C 420 [facility] 480 [place], [place] 378315 Assigned Cancer Care Provider 01/19/24 04/19/24 Luna Simons MD 420 [facility] 480 [place], [place] [address]325 Assigned Cancer Care Provider 04/20/24 documented as of this encounter
--- OUTSIDE RECORDS SUMMARY | 2024-10-15 17:10 | XMS_ITS | Encounter Summary ---
Author Organization [place] Address [address] [place] [address] Care Team Providers Care Key Attendant Name Role Phone Cyndie Eisenberg NP Primary Care Provider + Rodney Natarajan MD Unavailable [phone] Luna Simons MD Unavailable Caroline Duque RN Unavailable [phone] Martha White MD Unavailable Pedrito Ramirez MD Unavailable [phone] Rodney Natarajan MD Unavailable [phone] Luna Simons MD Unavailable Martha White MD Unavailable Mio Mclean MD Unavailable Ankita Park MD Unavailable [phone] Ankita Park MD Unavailable Mio Mclean MD Unavailable [phone] Luna Simons MD Unavailable Luna Simons MD Unavailable [phone] Jose Zaragoza NP Unavailable Mio Mclean MD Unavailable [phone] Luna Simons MD Unavailable [phone] Nadja Hagen MD Unavailable [phone] Batool Atkinson PhD LP Unavailable [phone] Prisca Miller MD Unavailable [phone] Ramin Steelen Ravi FIELD MAP EDITOR CERTIFIED REGISTERED NURSE ANESTHETIST Unavailable + IvetteJennyfer vaughan APRN CERTIFIED REGISTERED NURSE ANESTHETIST Unavailable + Sadaf Apple NP Unavailable Unavailable Clinic - [facility] Unavailabl e Yamel Saha PA-C Unavailable [phone] Luna Simons MD Unavailable [phone] Encounter Details Date Type Department Care Team (Late st Contact Info) Description 01/06/2020 MyC Medical Advice [facility] 9 [place] [address] Sophie Sen Social History Tobacco Use Types Packs/Day Years [...] have Coronavirus / COVID-19? No / Unsure 01/06/2020 6:47 AM CDT documented as of this encounter Plan of Treatment Upcoming Encounters Date Type Department Care Team (Late st Contact Info) Description 09/15/2025 9:15 AM CDT Ancillary Procedure [facility] Breast Center Imaging [place] [address] [facility] 2nd [place] [address] Luna Simons MD 420 [facility] 480 [place] [address] 09/15/2025 10:00 AM CDT Oncology Visit [facility] 909 [facility] [place] [address] Luna Simons MD 420 [facility] 480 [place], [place] 520715 documented as of this encounter Visit Diagnoses Not on filedocumented in this encounter Additional Health Concerns Infection Onset Date Last Indicated Resolved Time Rule Out COVID-19 01/24/2023 01/24/2023 01/24/2023 10:32 PM CDT documented as of this encounter Care Teams Key Attendant Relationship Specialty Start Date End Date Cyndie Eisenberg SAP DEVELOPER [address] [place] [address] PCP - General 09/25/19 Rodney Natarajan MD [address] [place] [address] 195 [place], [place] 160605 General Surgery 09/25/19 Luna Simons MD [address] [place] [address] 480 [place], [place] 6[address] Hematology 09/25/19 Caroline Duque, RN Specialty Television Schedule Coordinator Breast Oncology 09/30/19 Martha White MD [address] [place] [address] [place] [address] knife blade polisher 11/01/19 Pedrito Ramirez MD [address] [place] [address] [place] [address] Assigned Heart and Vascular Provider 03/20/20 11/07/20 Rodney Natarajan MD 420 [place] [address] [facility] 195 [place] [address] Assigned Surgical Provider 03/20/20 08/07/21 Luna Simons MD 420 [place] [address] [facility] 480 [place] [address] Assigned Cancer Care Provider 03/20/20 04/11/20 Martha White MD [address] [place] [address] [address] [place], [place] 937274 Assigned Behavioral Health Provider 03/20/20 05/02/20 Mio Mclean MD 420 [place] [address] [facility] 494 [place] [address] Assigned Cancer Care Provider 04/12/20 04/21/20 Ankita Park MD [facility] [address] [address] Assigned Behavioral Health Provider 05/03/20 06/29/23 Ankita Park MD [facility] [address] [phone] knife blade polisher 06/10/20 Mio Mclean MD 420 [place] [address] [facility] 494 [place] [address] Assigned Cancer Care Provider 05/10/20 07/25/20 Luna Simons MD 420 [place] [address] [facility] 480 [place] [address] Assigned Cancer Care Provider 04/22/20 05/09/20 Luna Simons MD 420 [facility] 480 [place] [address] Assigned Cancer Care Provider 07/26/20 06/26/21 Jose Zaragoza, SAP DEVELOPER 6405 [facility] [place] 984705 Assigned Heart and Vascular Provider 11/08/20 02/04/22 Mio Mclean MD 420 [facility] 494 [place], [place] [address]275 Assigned Cancer Care Provider 06/27/21 09/11/21 Luna Simons MD 420 [facility] 480 [place], [place] [address]6705 Assigned Cancer Care Provider 09/12/21 01/18/24 Nadja Hagen MD [facility] S [facility] Floor 2, [address] [place], [place] [address] Resident Psychiatry 04/01/22 05/13/24 Batool Atkinson, PhD LP [address] [place] [address] [address]VE [address] [place], [place] 12[address]34 Psychologist Licensed Mental Health 04/01/22 Prisca Miller MD 516 [facility] 295 [place], [place] 285385 Resident Neurology 02/10/23 Jennyfer Steele APRN CERTIFIED REGISTERED NURSE ANESTHETIST [address], [place] [address] [place], [place] [address] Nurse Practitioner Psychiatry 02/23/23 Jennyfer Steele APRN CERTIFIED REGISTERED NURSE ANESTHETIST [address] [place] [address] [address]275 [place] [address] Assigned Behavioral Health Provider 06/30/23 Sadaf Apple NP Assigned PCP 07/21/23 09/18/23 [facility] [address] [place] [address] Assigned PCP 09/19/23 Yamel Saha PA-C [address] [place] [address] 407635 Assigned Cancer Care Provider 01/19/24 04/19/24 Luna Simons MD [address] 4549[address] Assigned Cancer Care Provider 04/20/24 documented as of this encounter
--- OUTSIDE RECORDS SUMMARY | 2024-10-15 17:10 | XMS_ITS | Encounter Summary ---
Author Organization [place] Address [address] [place] [address] Care Team Providers Care Freelance Court Reporter Name Role Phone Cyndie Eisenberg NP Primary Care Provider + Rodney Natarajan MD Unavailable [phone] Luna Simons MD Unavailable [phone] Caroline Duque RN Unavailable [phone] Martha White MD Unavailable Pedrito Ramirez MD Unavailable Rodney Natarajan MD Unavailable [phone] Luna Simons MD Unavailable Martha White MD Unavailable [phone] Mio Mclean MD Unavailable [phone] Ankita Park MD Unavailable [phone] Ankita Park MD Unavailable [phone] Mio Mclean MD Unavailable [phone] Luna Simons MD Unavailable Luna Simons MD Unavailable Jose Zaragoza NP Unavailable Mio Mclean MD Unavailable [phone] Luna Simons MD Unavailable [phone] Nadja Hagen MD Unavailable [phone] Batool Atkinson PhD LP Unavailable [phone] Prisca Miller MD Unavailable [phone] Jennyfer Steele CEO [place] SHRINK PIT OPERATOR Unavailable + IvetteJennyfer APRN SHRINK PIT OPERATOR Unavailable + Sadaf Apple NP Unavailable Unavailable Clinic - [facility] Unavailabl e Yamel Saha PA-C Unavailable +[phone] Luna Simons MD Unavailable [phone] Encounter Details Date Type Department Care Team (Late st Contact Info) Description 10/07/2019 MyC Medical Advice [facility] 9[address] [place] [address] Nena Sebastian PA-C [address] [facility] [address] [place] [address] Social History Tobacco Use Types [...] have Coronavirus / COVID-19? No / Unsure 10/08/2019 9:45 AM CDT documented as of this encounter Plan of Treatment Upcoming Encounters Date Type Department Care Team (Late st Contact Info) Description 09/15/2025 9:15 AM CDT Ancillary Procedure [facility] Imaging [place] 909 [facility] 2nd [place] [address] Luna Simons MD 420 [facility] 480 [place] [address] 09/15/2025 10:00 AM CDT Oncology Visit [facility] 9[address] [place] [phone] Luna Simons MD 420 [facility] [address] [place] [address] documented as of this encounter Visit Diagnoses Not on filedocumented in this encounter Additional Health Concerns Infection Onset Date Last Indicated Resolved Time Rule Out COVID-19 01/24/2023 01/24/2023 01/24/2023 10:32 PM CDT documented as of this encounter Care Teams Freelance Court Reporter Relationship Specialty Start Date End Date Cyndie Eisenberg SENIOR LIVING SALES COUNSELOR [address] [place] [address] PCP - General 09/25/19 Rodney Natarajan MD 420 [facility] 195 [place] [address] General Surgery 09/25/19 Luna Simons MD [address] [place] [address] 480 [place] [address] Hematology 09/25/19 Caroline Duque, RN Specialty Physician Extender Breast Oncology 09/30/19 Martha White MD [address] [place], [place] [address] adolescent psychiatrist 11/01/19 Pedrito Ramirez MD [address] [place] [address] Assigned Heart and Vascular Provider 03/20/20 11/07/20 Rodney Natarajan MD [address] [place] [facility] 195 [place] [address] Assigned Surgical Provider 03/20/20 08/07/21 Luna Simons MD [address] [place] [facility] 480 [place] [address] Assigned Cancer Care Provider 03/20/20 04/11/20 Martha White MD [address] [place] [address] [address] [place], [place] [address]494 Assigned Behavioral Health Provider 03/20/20 05/02/20 Mio Mclean MD [address] [place] [facility] 494 [place] [address] Assigned Cancer Care Provider 04/12/20 04/21/20 Ankita Park MD [address] [address] Assigned Behavioral Health Provider 05/03/20 06/29/23 Ankita Park MD [address] [phone] adolescent psychiatrist 06/10/20 Mio Mclean MD [address] [place] [facility] 494 [place] [address] Assigned Cancer Care Provider 05/10/20 07/25/20 Luna Simons MD [address] [place] [facility] 480 [place] [address] Assigned Cancer Care Provider 04/22/20 05/09/20 Luna Simons MD 420 [facility] [address] [place], [place] 9[address]365 Assigned Cancer Care Provider 07/26/20 06/26/21 Jose Zaragoza, SENIOR LIVING SALES COUNSELOR 6405 [facility] [place] [address] Assigned Heart and Vascular Provider 11/08/20 02/04/22 Mio Mclean MD [address] [facility] [address] [place], [place] [address] Assigned Cancer Care Provider 06/27/21 09/11/21 Luna Simons MD [address] [facility] [address] [place], [place] [address] Assigned Cancer Care Provider 09/12/21 01/18/24 Nadja Hagen MD [facility] S [facility] Floor 2, [address] [place], [place] [address] Resident Psychiatry 04/01/22 05/13/24 Batool Atkinson, PhD LP [address] [place] [address] [address] [place], [place] 0[address]34 Psychologist Licensed Mental Health 04/01/22 Prisca Miller MD 6 [facility] 295 [place], [place] 4[address]65 Resident Neurology 02/10/23 Jennyfer Steele, CEO [place] SHRINK PIT OPERATOR [address] [place], [place] [address] Nurse Practitioner Psychiatry 02/23/23 Jennyfer Steele APRN SHRINK PIT OPERATOR [address] [place] [id number] [place], [place] 580864 Assigned Behavioral Health Provider 06/30/23 Sadaf Apple NP Assigned PCP 07/21/23 09/18/23 [facility] [id number] [place] [address] Assigned PCP 09/19/23 Yamel Saha PA-C [address] 5189[address] Assigned Cancer Care Provider 01/19/24 04/19/24 Luna Simons MD [address] 491085 Assigned Cancer Care Provider 04/20/24 documented as of this encounter
--- OUTSIDE RECORDS SUMMARY | 2024-10-15 17:10 | XMS_ITS | Encounter Summary ---
Author Organization [place] Address [address] [place] [address] Care Team Providers Care Commissary Officer Name Role Phone Cyndie Eisenberg NP Primary Care Provider + Rodney Natarajan MD Unavailable [phone] Luna Simons MD Unavailable Caroline Duque RN Unavailable [phone] Martha Whiet MD Unavailable Pedrito Ramirez MD Unavailable [phone] Rodney Natarajan MD Unavailable Luna Simons MD Unavailable Martha White MD Unavailable Mio Mclean MD Unavailable [phone] Ankita Park MD Unavailable [phone] Ankita Park MD Unavailable [phone] Mio Mclean MD Unavailable [phone] Luna Simons MD Unavailable Luna Simons MD Unavailable Jose Zaragoza NP Unavailable Mio Mclean MD Unavailable [phone] Luna Simons MD Unavailable [phone] Nadja Hagen MD Unavailable [phone] Batool Atkinson PhD LP Unavailable [phone] Prisca Miller MD Unavailable [phone] Jennyfer Steele ROLL OVER LOADER HUMAN PROJECTILE Unavailable + IvetteJennyfer APRN HUMAN PROJECTILE Unavailable + Sadaf Apple NP Unavailable Unavailable Clinic - [facility] Unavailabl e Yamel Saha PA-C Unavailable [phone] Luna Simons MD Unavailable [phone] Encounter Details Date Type Department Care Team (Late st Contact Info) Description 10/22/2019 MyC Medical Advice [facility] [address] [place] [address] Luna Simons MD [address] [place] [address] Social History Tobacco Use Types Packs/Day [...] have Coronavirus / COVID-19? No / Unsure 10/25/2019 8:39 AM CDT documented as of this encounter Plan of Treatment Upcoming Encounters Date Type Department Care Team (Late st Contact Info) Description 09/15/2025 9:15 AM CDT Ancillary Procedure [facility] Imaging [place] [address] [place] [address] 2nd [place] [address] Luna Simons MD [address] [place] [address] 09/15/2025 10:00 AM CDT Oncology Visit [facility] 909 [place] [phone] Luna Simons MD 420 [facility] 480 [place] [address] documented as of this encounter Visit Diagnoses Not on filedocumented in this encounter Additional Health Concerns Infection Onset Date Last Indicated Resolved Time Rule Out COVID-19 01/24/2023 01/24/2023 01/24/2023 10:32 PM CDT documented as of this encounter Care Teams Commissary Officer Relationship Specialty Start Date End Date Cyndie Eisenberg TELECOMMUNICATIONS FACILITY EXAMINER [address] [place] [address] PCP - General 09/25/19 Rodney Natarajan MD 420 [facility] 195 [place] [address] General Surgery 09/25/19 Luna Simons MD [address] [place] [address] 480 [place] [address] Hematology 09/25/19 Caroline Duque, RN Specialty Cardiovascular Invasive Specialist Breast Oncology 09/30/19 Martha White MD [address] [place], [place] 95[address] medical biller 11/01/19 Pedrito Ramirez MD [address] [place] [address] Assigned Heart and Vascular Provider 03/20/20 11/07/20 Rodney Natarajan MD [address] [place] [facility] 195 [place] [address] Assigned Surgical Provider 03/20/20 08/07/21 Luna Simons MD [address] [place] [facility] 480 [place] [address] Assigned Cancer Care Provider 03/20/20 04/11/20 Martha White MD [address] [place] [address] [address] [place], [place] 470244 Assigned Behavioral Health Provider 03/20/20 05/02/20 Mio Mclean MD [address] [place] [facility] 494 [place] [address] Assigned Cancer Care Provider 04/12/20 04/21/20 Ankita Park MD [address] [address] Assigned Behavioral Health Provider 05/03/20 06/29/23 Ankita Park MD [address] [phone] medical biller 06/10/20 Mio Mclean MD [address] [place] [facility] 494 [place] [address] Assigned Cancer Care Provider 05/10/20 07/25/20 Luna Simons MD [address] [place] [facility] 480 [place] [address] Assigned Cancer Care Provider 04/22/20 05/09/20 Luna Simons MD 420 [facility] 480 [place], [place] [address]675 Assigned Cancer Care Provider 07/26/20 06/26/21 Jose Zaragoza, TELECOMMUNICATIONS FACILITY EXAMINER 6405 [facility] [place] [address] Assigned Heart and Vascular Provider 11/08/20 02/04/22 Mio Mclean MD 420 [facility] 494 [place], [place] 936705 Assigned Cancer Care Provider 06/27/21 09/11/21 Luna Simons MD 420 [facility] 480 [place], [place] [address]45 Assigned Cancer Care Provider 09/12/21 01/18/24 Nadja Hagen MD [facility] Floor 2, [address] [place], [place] [address] Resident Psychiatry 04/01/22 05/13/24 Batool Atkinson, PhD LP [address] [place] [address] [address] [place], [place] 88[address]64 Psychologist Licensed Mental Health 04/01/22 Prisca Miller MD 6 [facility] 295 [place], [place] 366925 Resident Neurology 02/10/23 Jennyfer Steele, ROLL OVER LOADER HUMAN PROJECTILE [address] [place], [place] [address] Nurse Practitioner Psychiatry 02/23/23 Jennyfer Steele APRN HUMAN PROJECTILE [address] [place] 2322175 [place], [place] [address] Assigned Behavioral Health Provider 06/30/23 Sadaf Apple NP Assigned PCP 07/21/23 09/18/23 [facility] [address] [place] [address] Assigned PCP 09/19/23 Yamel Saha PA-C [address] 815765 Assigned Cancer Care Provider 01/19/24 04/19/24 Luna Simons MD [address] [address] Assigned Cancer Care Provider 04/20/24 documented as of this encounter
[2024-10-15 17:14] VITALS: BP 153/97; PULSE 85; RESP 14; TEMP 36.9; O2SAT 96; BMI 21.5
--- NOTE | 2024-10-15 17:19 | CRLHL7_ITS ---
For Patients: As a result of the Century Cures Act, medical imaging exams and procedure reports are released immediately into your electronic medical record. You may view this report before your referring provider. If you have questions, please contact your health care provider. Indication: Dropped box on foot. Technique: Right foot 3 views. Comparison: None. Findings: Bones: Alignment is normal. No acute fracture or suspicious bone lesion. Joint spaces: Unremarkable. Soft tissues: Unremarkable. Impression: No evidence of an acute bony abnormality. Dictated by Zach Whelan MD @ 10/15/2024 6:19:49 PM (Electronically Signed)
--- NOTE | 2024-10-15 18:30 | ED.LOWEXIN ---
HPI - Extremity Injury (Lower) General Date Seen: 10/15/24 Chief Complaint: Extremity Pain/Injury, Lower Stated Complaint: possible broken right foot Time Seen by Provider: 10/15/24 18:22 Source: patient Mode of arrival: wheelchair Limitations: no limitations History of Present Illness HPI Narrative: Patient is a 43-year-old female presenting to the emergency department for right foot pain. She states yesterday she was carrying up a heavy box that weighed about 50 lb when it fell and landed on her right foot. Has been having quite a bit of pain since then. States she woke up around 04:30 do so throbbing pain on the lateral aspect of her foot going into her pinky toe. Has been keeping the foot elevated and has been icing it. Been using Tylenol ibuprofen for pain. Has not been able to walk on it due to the pain and considering this she was concerned and came in for imaging to rule out any fractures. No other concerns noted. Related Data Home Medications ?Medication ?Instructions ?Recorded ?Confirmed dextroamphetamine-amphetamine ER 1 cap PO BID 10/15/24 10/15/24 10 mg 24hr capsule,extend release duloxetine 30 mg capsule,delayed 30 mg PO DAILY 10/15/24 10/15/24 release duloxetine 60 mg capsule,delayed 60 mg PO DAILY 10/15/24 10/15/24 release Allergies Allergy/AdvReac Type Severity Reaction Status Date / Time No Known Drug Allergies Allergy Verified 10/15/24 17:12 Review of Systems Narrative: Pertinent systems reviewed and were negative unless stated in HPI PFSH PFSH Surgical History History of section ?Z98.891 - History of uterine scar from previous surgery (ICD-10) History of tonsillectomy ?Z90.89 - Acquired absence of other organs (ICD-10) History of loop electrical excision procedure (LEEP) (2008) ?Z98.890 - Other specified postprocedural states (ICD-10) History of bilateral salpingo-oophorectomy (BSO) (2019) ?Z90.79 - Acquired absence of other genital organ(s) (ICD-10) ?Z90.722 - Acquired absence of ovaries, 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 Moist mucous membranes. CVS: Cap refill right toes less than 2nd MSK: swelling noted to the lateral aspect of the foot from the base of the 5th metatarsal going up into the 5th toe. Tenderness to palpation also noted in this area. No other tenderness noted to the foot or ankle Skin: Warm, Dry. No rashes or lesions. Neuro: Normal Muscle tone, No focal neurological deficits. Psych: Awake, Alert, & Oriented x3. Appropriate mood and affect. Const: Vital Signs, click to edit/add: Vital Signs - 24 hr 10/15/24 17:14 Temperature 98.4 F Pulse Rate [Pulse Oximeter] 85 Respiratory Rate 14 Blood Pressure [Ri ght Upper Arm] 153/97 H Pulse Oximetry 96 Oxygen Delivery Me thod Room Air Course Vital Signs Vital signs: Initial Vital Signs Temperature 98.4 F 10/15/24 17:14 Temperature Source Temporal Artery Scan 10/15/24 17:14 Pulse Rate 85 10/15/24 17:14 Pulse Rhythm Regular 10/15/24 17:14 Respiratory Rate 14 10/15/24 17:14 Blood Pressure 153/97 H 10/15/24 17:14 Blood Pressure Mean 115 H 10/15/24 17:14 Blood Pressure Position Sitting 10/15/24 17:14 Pulse Oximetry 96 10/15/24 17:14 Oxygen Delivery Method Room Air 10/15/24 17:14 Vital Signs Temperature 98.4 F 10/15/24 17:14 Pulse Rate 85 10/15/24 17:14 Respiratory Rate 14 10/15/24 17:14 Blood Pressure 153/97 H 10/15/24 17:14 Pulse Oximetry 96 10/15/24 17:14 Oxygen Delivery Method Room Air 10/15/24 17:14 Temperature 98.4 F 10/15/24 17:14 Pulse Rate 85 10/15/24 17:14 Respiratory Rate 14 10/15/24 17:14 Blood Pressure 153/97 H 10/15/24 17:14 Pulse Oximetry 96 10/15/24 17:14 Oxygen Delivery Method Room Air 10/15/24 17:14 MDM - Extremity Injury (Lower) MDM Narrative Medical decision making narrative: Patient is a 43-year-old female presenting for right foot pain. X-rays were ordered. X-rays reviewed by myself and the radiologist showed no acute concerning abnormalities. Most likely she has some kind bone contusion. I did offer an Trey wrap which she agreed to. She will be discharged. Discharge Plan Discharge Clinical Impression: Contusion of foot, right Qualifiers: Encounter type: initial encounter Qualified Code(s): S90.31XA - Contusion of right foot, initial encounter Patient Disposition: Home, Self-Care Condition: Stable Instructions: Bone Bruise (ED) Additional Instructions: Keep your foot elevated above your heart when possible. Take Tylenol and ibuprofen for pain. Use ice for 20 minutes at a time about 3 times a day. Return to emergency department for any new or concerning symptoms Prescriptions: No Action dextroamphetamine-amphetamine 10 mg capsule,extended release 24hr 1 cap PO BID duloxetine 30 mg capsule,delayed release(DR/EC) 30 mg PO DAILY Patient Comments: Takes with 60mg for total dose of 90mg. duloxetine 60 mg capsule,delayed release(DR/EC) 60 mg PO DAILY Follow Up/Referrals: Provider,Not a Local [Primary Care Provider, Family Practice] Stand Alone Forms: Realeyes Info Instructions
--- OUTSIDE RECORDS SUMMARY | 2024-10-15 18:38 | XMS_ITS | Encounter Summary ---
Author Organization [place] Address [address] [place] [address] Care Team Providers Care Net Architect Name Role Phone Cyndie Eisenberg NP Primary Care Provider + Rodney Natarajan MD Unavailable [phone] Luna Simons MD Unavailable [phone] Caroline Duque RN Unavailable [phone] Martha White MD Unavailable [phone] Ankita Park MD Unavailable [phone] Ankita Park MD Unavailable [phone] Jose Zaragoza NP Unavailable Luna Simons MD Unavailable Nadja Hagen MD Unavailable [phone] Batool Atkinson PhD LP Unavailable [phone] Prisca Miller MD Unavailable [phone] Jennyfer Steele APRN VICE PRESIDENT DIVERSITY Unavailable [phone] Jennyfer Steele APRN VICE PRESIDENT DIVERSITY Unavailable [phone] Sadaf Apple NP Unavailable Unavailable [facility] Unavailabl e Yamel Saha PA-C Unavailable [phone] Luna Simons MD Unavailable Reason for Visit * Reason Onset Date Comments Refill Request 09/23/2021 Encounter Details Date Type Department Care Team ([facility] Contact Info) Description 09/23/2021 MyC Refill M [facility] & Addiction [address] [address] Ankita Park MD [address] [place] [address] [place] [address] Refill Request Social History Tobacco [...] (METADATE CD) 10 MG CR capsule via [employer]. Patient's pharmacy has a prescription effective 09/22/21. [id number] [address] Certified Medication Aide notified patient via [employer] message. documented in this encounter Plan of Treatment Upcoming Encounters Date Type Department Care Team (Late Contact Info) Description 09/15/2025 9:15 AM CDT Ancillary Procedure M [facility] Breast Center Imaging [place] 909 [facility] 2nd [place] [address] Luna Simons MD 420 [facility] 480 [place] [address] 09/15/2025 10:00 AM CDT Oncology Visit [facility] 909 [place] [phone] Luna Simons MD 420 [facility] [address] [place], [place] [address] documented as of this encounter Visit Diagnoses Diagnosis Cognitive complaints Other signs and symptoms involving cognition documented in this encounter Additional Health Concerns Infection Onset Date Last Indicated Resolved Time Rule Out COVID-19 01/24/2023 01/24/2023 01/24/2023 10:32 PM CDT Assessment Noted Time PHQ-9 Depression Total Score: 12 022 8:00 AM BUDGET ACCOUNTANT documented as of this encounter Care Teams Net Architect Relationship Specialty Start Date End Date Cyndie Eisenberg NP 100 [facility] [address] PCP - General 09/25/19 Rodney Natarajan MD [address] [place] [address] 195 [place], [place] [address] General Surgery 09/25/19 Luna Simons MD 420 [facility] [address] [place], [place] [address] Hematology 09/25/19 Caroline Duque, RN Specialty Biomedical Engineering Technologist Breast Oncology 09/30/19 Martha White MD [facility] [address] [place] [address] cabin man 11/01/19 Ankita Park MD [address] [place] [phone] Assigned Behavioral Health Provider 05/03/20 06/29/23 Ankita Park MD 2450 [facility] [address] [place] [phone] cabin man 06/10/20 Jose Zaragoza, MANAGER PLUMBING 6405 [facility] [place] [address] Assigned Heart and Vascular Provider 11/08/20 02/04/22 Luna Simons MD [address] [place] [address] 480 [place], [place] [address] Assigned Cancer Care Provider 09/12/21 01/18/24 Nadja Hagen MD [address] [place] [address] Floor 2, [address] [place], [place] [address] Resident Psychiatry 04/01/22 05/13/24 Batool Atkinson, PhD LP Psychiatric hospital0 [facility] [address] [place], [place] [address] Psychologist Licensed Mental Health 04/01/22 Prisca Miller MD 6 [facility] [address] [place], [place] [address] Resident Neurology 02/10/23 Jennyfer Steele APRN VICE PRESIDENT DIVERSITY [facility] [address] [place] [address] Nurse Practitioner Psychiatry 02/23/23 Jennyfer Steele APRN VICE PRESIDENT DIVERSITY [facility] S [address] [place] [address] [address] [place] [address] Assigned Behavioral Health Provider 06/30/23 Sadaf Apple NP Assigned PCP 07/21/23 09/18/23 [facility] [address] [place] [address] Assigned PCP 09/19/23 Yamel Saha PA-C [address] [address]32[address] Assigned Cancer Care Provider 01/19/24 04/19/24 Luna Simons MD [address] [address] Assigned Cancer Care Provider 04/20/24 documented as of this encounter
--- OUTSIDE RECORDS SUMMARY | 2024-10-15 18:38 | XMS_ITS | Encounter Summary ---
Author Organization [place] Address [address] [place] [address] Care Team Providers Care Punch Operator Name Role Phone Cyndie Eisenberg NP Primary Care Provider + Rodney Natarajan MD Unavailable [phone] Luna Simons MD Unavailable [phone] Caroline Duque RN Unavailable [phone] Martha White MD Unavailable Ankita Park MD Unavailable [phone] Batool Atkinson PhD LP Unavailable Prisca Miller MD Unavailable Jennyfer Steele APRN FOURDRINIER WIRE WEAVER Unavailable +[phone] Jennyfer Steele APRN FOURDRINIER WIRE WEAVER Unavailable [phone] [facility] Unavailabl e Luna Simons MD Unavailable Encounter Details Date Type Department Care Team (Late st Contact Info) Description 09/17/2024 Cortney Loomis [facility] [address] F[address] [address] Talita Bradshaw Social History Tobacco Use Types [...] How often do you attend chur or gnosticism services? More than 4 times per year 06/22/2023 Do you belong to any clubs o r organizations such as voodoo groups, unions, fraternal or athletic groups, or [...] Answer Date Recorded PHQ-2 Score 0 09/10/2024 [facility] of Occupat ional Health - Occupational [...] in an abandoned building, in an overnight alf, or couch-surfing.) Yes 06/22/2023 Are you worried [...] Ancillary Procedure [facility] Imaging [place] [address] [facility] 2nd [place] [address] Luna Simons MD [address] [place] [address] 09/15/2025 10:00 AM CDT Oncology Visit [facility] 909 [place] [address] Luna Simons MD 420 [facility] 480 [place], [place] 504215 documented as of this encounter Visit Diagnoses Not on filedocumented in this encounter Additional Health Concerns Assessment Noted Time PHQ-9 Depression Total Score: 0 09/11/19 25 9:09 AM CDT documented as of this encounter Care Teams Punch Operator Relationship Specialty Start Date End Date Cyndie Eisenberg NP [address] [place] [address] PCP - General 09/25/19 Rodney Natarajan MD 420 [facility] 195 [place], [place] 551225 General Surgery 09/25/19 Luna Simons MD 420 [facility] 480 [place], [place] 982745 Hematology 09/25/19 Caroline Duque, RN Specialty Financial Services Technician Breast Oncology 09/30/19 Martha White MD [address] [place], [place] 797634 operation supervisor 11/01/19 Ankita Park MD 2450 [facility] 2[place] [phone] operation supervisor 06/10/20 Batool Atkinson, PhD LP 2450 [facility] [address] [place] [address] Psychologist Licensed Mental Health 04/01/22 Prisca Miller MD 516 [facility] 295 [place] [address] Resident Neurology 02/10/23 Jennyfer Steele APRN FOURDRINIER WIRE WEAVER [address] [place] [address] [address]275 [place] [address] Nurse Practitioner Psychiatry 02/23/23 Jennyfer Steele APRN FOURDRINIER WIRE WEAVER [facility] [address] [place] [address] [address]275 [place], [place] 348934 Assigned Behavioral Health Provider 06/30/23 [facility] [id number] [place] [address] Assigned PCP 09/19/23 Luna Simons MD [address] [place] [address] 480 [place], [place] 151565 Assigned Cancer Care Provider 04/20/24 documented as of this encounter
--- OUTSIDE RECORDS SUMMARY | 2024-10-15 18:38 | XMS_ITS | Encounter Summary ---
Author Organization [place] Address [address] [place] [address] Care Team Providers Care Clam Dredger Name Role Phone Cyndie Eisenberg NP Primary Care Provider + Rodney Natarajan MD Unavailable [phone] Luna Simons MD Unavailable [phone] Caroline Duque RN Unavailable [phone] Martha White MD Unavailable Ankita Park MD Unavailable [phone] Luna Simons MD Unavailable Nadja Hagen MD Unavailable [phone] Batool Atkinson PhD LP Unavailable Prisca Miller MD Unavailable [phone] Jennyfer Steele APRN SNOW BLOWER Unavailable [phone] Jennyfer Steele APRN SNOW BLOWER Unavailable [phone] Sadaf Apple NP Unavailable Unavailable [facility] Unavailabl e Yamel Saha PA-C Unavailable [phone] Luna Simons MD Unavailable [phone] Encounter Details Date Type Department Care Team (Late st Contact Info) Description 08/10/[address] [facility] 909 [place] [address] Luna Simons MD 420 [facility] 480 [place], [place] 594355 Social History Tobacco Use Types Packs/Day Years [...] How often do you attend chur or oriental orthodox services? More than 4 times per year [...] Answer Date Recorded PHQ-2 Score 0 06/22/2023 [facility] of Occupat ional Health - Occupational Stress [...] in an abandoned building, in an overnight skilled nursing, or couch-surfing.) Yes 06/22/2023 Are you worried [...] Procedure [facility] Breast Center Imaging [address] 2nd [place] [address] Luna Simons MD 420 [facility] 480 [place], [place] 882735 09/15/2025 10:00 AM CDT Oncology Visit [facility] 909 [place] [phone] Luna Simons MD 420 [facility] 480 [place], [place] 177015 documented as of this encounter Visit Diagnoses Not on filedocumented in this encounter Additional Health Concerns Assessment Noted Time PHQ-9 Depression Total Score: 0 06/22/19 24 4:[address] IN WAITER/WAITRESS documented as of this encounter Care Teams Clam Dredger Relationship Specialty Start Date End Date Cyndie Eisenberg, ADVERTISING SALES MANAGER [address] [place] [address] PCP - General 09/25/19 Rodney Natarajan MD [address] [place] [address] 195 [place], [place] 784405 General Surgery 09/25/19 Luna Simons MD [address] [place] [address] 480 [place], [place] 664635 Hematology 09/25/19 Caroline Duque, ASHLIE Specialty Control Officer Breast Oncology 09/30/19 Martha White MD [address] [place] [address] [address] [place] [address] performance test consultant 11/01/19 Ankita Park MD [facility] [place] [address] performance test consultant 06/10/20 Luna Simons MD 420 [facility] 480 [place], [place] 518785 Assigned Cancer Care Provider 09/12/21 01/18/24 Nadja Hagen MD [address] [place] [address] Floor 2, [address] [place], [place] 6[address]324 Resident Psychiatry 04/01/22 05/13/24 Batool Atkinson, PhD LP [address] [place], [place] 12[address] [place] [address] Psychologist Licensed Mental Health 04/01/22 Prisca Miller MD 516 [facility] 295 [place] 871425 Resident Neurology 02/10/23 Jennyfer Steele APRN SNOW BLOWER [address] [place], [place] 159[address] [place], [place] 704784 Nurse Practitioner Psychiatry 02/23/23 Jennyfer Steele APRN SNOW BLOWER [address] [place] [address] [id number] Assigned Behavioral Health Provider 06/30/23 Sadaf Apple NP Assigned PCP 07/21/23 09/18/23 [facility] [address] [place] [address] Assigned PCP 09/19/23 Yamel Saha PA-C 420 [facility] 480 [place] [address] Assigned Cancer Care Provider 01/19/24 04/19/24 Luna Simons MD [address] [place] [address] 480 [place] [address] Assigned Cancer Care Provider 04/20/24 documented as of this encounter
--- OUTSIDE RECORDS SUMMARY | 2024-10-15 18:38 | XMS_ITS | Encounter Summary ---
Author Organization [place] Address [address] [place] [address] Care Team Providers Care E Commerce Specialist Name Role Phone Cyndie Eisenberg NP Primary Care Provider + Rodney Natarajan MD Unavailable Luna Simons MD Unavailable [phone] Caroline Duque RN Unavailable [phone] Martha White MD Unavailable Ankita Park MD Unavailable [phone] Luna Simons MD Unavailable Nadja Hagen MD Unavailable [phone] Batool Atkinson PhD LP Unavailable Prisca Miller MD Unavailable [phone] Jennyfer Steele APRN JOURNALISTS AND OTHER WRITERS Unavailable +[phone] Jennyfer Steele APRN JOURNALISTS AND OTHER WRITERS Unavailable [phone] Sadaf Apple NP Unavailable Unavailable [facility] Unavailabl e Yamel Saha PA-C Unavailable [phone] Luna Simons MD Unavailable [phone] Encounter Details Date Type Department Care Team (Late st Contact Info) Description 08/11/2023 MyC Medical Advice [facility] Cancer [place] [address]19 [place] [address] Sandra Modi, ASHLIE Social History [...] How often do you attend chur or congregational services? More than 4 times per year 06/22/2023 Do you belong to any clubs o r organizations such as tenriism groups, unions, fraternal or athletic groups, or [...] Answer Date Recorded PHQ-2 Score 0 06/22/2023 [facility] of Occupat ional Health - Occupational Stress [...] 09/15/2025 9:15 AM CDT Ancillary Procedure [facility] Breast Center Imaging [place] 909 [facility] 2nd [place] [address] Luna Simons MD [address] [place] [address] 09/15/2025 10:00 AM CDT Oncology Visit [facility] 909 [place] [phone] Luna Simons MD 420 [facility] 480 [place] [address] documented as of this encounter Visit Diagnoses Not on filedocumented in this encounter Additional Health Concerns Assessment Noted Time PHQ-9 Depression Total Score: 0 06/22/19 24 4:03 PM SENIOR VICE PRESIDENT & GENERAL COUNSEL documented as of this encounter Care Teams E Commerce Specialist Relationship Specialty Start Date End Date Cyndie Eisenberg CLOTH BOOKER [address] [facility] [facility] [address] PCP - General 09/25/19 Rodney Natarajan MD 420 [facility] 195 [place], [place] 0616[address] General Surgery 09/25/19 Luna Simons MD [address] [place] [address] 443395 Hematology 09/25/19 Caroline Duque, RN Specialty Core Drier Breast Oncology 09/30/19 Martha White MD [address] [place], [place] [address] vending service technician 11/01/19 Ankita Park MD [address] [place] [phone] vending service technician 06/10/20 Luna Simons MD [address] [place] [address] 480 [place] [address] Assigned Cancer Care Provider 09/12/21 01/18/24 Nadja Hagen MD [address] [place] [address] Floor 2, [address] [place] [address] Resident Psychiatry 04/01/22 05/13/24 Batool Atkinson, PhD LP [address] [place] [address] [address] [place], [place] 157534 Psychologist Licensed Mental Health 04/01/22 Prisca Miller MD 6 [facility] 295 [place], [place] 279915 Resident Neurology 02/10/23 Jennyfer Steele APRN JOURNALISTS AND OTHER WRITERS [address] [place] [address], [place] [address] [place], [place] 396614 Nurse Practitioner Psychiatry 02/23/23 Jennyfer Steele APRN JOURNALISTS AND OTHER WRITERS [address] [place] [address] [address]275 [place] [address] Assigned Behavioral Health Provider 06/30/23 Sadaf Apple NP Assigned PCP 07/21/23 09/18/23 [facility] [address] [place] [address] Assigned PCP 09/19/23 Yamel Saha PA-C [address] [place] [address] 480 [place] [address] Assigned Cancer Care Provider 01/19/24 04/19/24 Luna Simons MD [address] 935695 Assigned Cancer Care Provider 04/20/24 documented as of this encounter
--- OUTSIDE RECORDS SUMMARY | 2024-10-15 18:38 | XMS_ITS | Encounter Summary ---
Author Organization [place] Address [address] [place] [address] Care Team Providers Care Animal Trainer Name Role Phone Cyndie Eisenberg NP Primary Care Provider + Rodney Natarajan MD Unavailable [phone] Luna Simons MD Unavailable +[phone] Caroline Duque RN Unavailable [phone] Martha White MD Unavailable [phone] Ankita Park MD Unavailable [phone] Ankita Park MD Unavailable [phone] Luna Simons MD Unavailable [phone] Nadja Hagen MD Unavailable [phone] Batool Atkinson PhD LP Unavailable [phone] Prisca Miller MD Unavailable [phone] Jennyfer Steele APRN FLIGHT SUPERINTENDENT Unavailable +[phone] Jennyfer Steele APRN FLIGHT SUPERINTENDENT Unavailable + [phone] Sadaf Apple NP Unavailable Unavailable [facility] Unavailabl e Yamel Saha PA-C Unavailable [phone] Luna Simons MD Unavailable [phone] Encounter Details Date Type Department Care Team (Late st Contact Info) Description 02/22/2022 MyC Medical Advice [facility] Cancer [address] [phone] Talita Bradshaw Social History Tobacco Use Types [...] [facility] Breast [facility] Imaging [address] 2nd [place] [phone] Luna Simons MD [address] [place] [address] 09/15/2025 10:00 AM CDT Oncology Visit [facility] Cancer [address] [phone] Luna Simons MD [address] [place] [address] 014105 documented as of this encounter Visit Diagnoses Not on filedocumented in this encounter Additional Health Concerns Infection Onset Date Last Indicated Resolved Time Rule Out COVID-19 01/24/2023 01/24/2023 01/24/2023 10:32 PM CDT Assessment Noted Time PHQ-9 Depression Total Score: 12 07/14/ 022 8:00 AM STAGE ELECTRICIAN HELPER documented as of this encounter Care Teams Animal Trainer Relationship Specialty Start Date End Date Cyndie Eisenberg NP [address] [place] [address] PCP - General 09/25/19 Rodney Natarajan MD 420 [facility] 195 [place], [place] 794195 MD General Surgery 09/25/19 Luna Simons MD 420 [facility] 480 [place], [place] 896145 MD Hematology 09/25/19 Caroline Duque, ASHLIE Specialty Flat Lock Operator Breast Oncology 09/30/19 Martha White MD 2312 S [facility] [place] [address] [place], [place] 381054 business intelligence developer 11/01/19 Ankita Park MD [facility] [address] [phone] Assigned Behavioral Health Provider 05/03/20 06/29/23 Ankita Park MD [facility] [address] [phone] business intelligence developer 06/10/20 Luna Simons MD 420 [facility] 480 [place] [address] Assigned Cancer Care Provider 09/12/21 01/18/24 Nadja Hagen MD [address] Floor 2, [address] [place], [place] 36[address] Resident Psychiatry 04/01/22 05/13/24 Batool Atkinson, PhD LP [facility] F282 [place], [place] 0[address] Psychologist Licensed Mental Health 04/01/22 Prisca Miller MD 516 [facility] 295 [place] [address] Resident Neurology 02/10/23 Jennyfer Steele APRN FLIGHT SUPERINTENDENT [address] [place], [place] [address] [place] [address] Nurse Practitioner Psychiatry 02/23/23 Jennyfer Steele APRN FLIGHT SUPERINTENDENT [address] [place], [place] [address] [place] [address] Assigned Behavioral Health Provider 06/30/23 Sadaf Apple NP Assigned PCP 07/21/23 09/18/23 [facility] [address] [place] [address] Assigned PCP 09/19/23 Yamel Saha PA-C 420 [facility] 480 [place], [place] 037935 Assigned Cancer Care Provider 01/19/24 04/19/24 Luna Simons MD 420 [facility] 480 [place], [place] 503365 Assigned Cancer Care Provider 04/20/24 documented as of this encounter
--- OUTSIDE RECORDS SUMMARY | 2024-10-15 18:38 | XMS_ITS | Encounter Summary ---
Author Organization [place] Address [address] [place] [address] Care Team Providers Care Yarn Skeins Examiner Name Role Phone Cyndie Eisenberg NP Primary Care Provider + Rodney Natarajan MD Unavailable [phone] Luna Simons MD Unavailable [phone] Caroline Duque RN Unavailable [phone] Martha White MD Unavailable [phone] Ankita Park MD Unavailable [phone] Luna Simons MD Unavailable [phone] Nadja Hagen MD Unavailable [phone] Batool Atkinson PhD LP Unavailable Prisca Miller MD Unavailable [phone] Jennyfer Steele APRN AIR CONDITIONING ENGINEER Unavailable +[phone] Jennyfer Steele APRN AIR CONDITIONING ENGINEER Unavailable +[phone] Sadaf Apple NP Unavailable Unavailable [facility] Unavailabl e Yamel Saha PA-C Unavailable [phone] Luna Simons MD Unavailable +[phone] Encounter Details Date Type Department Care Team (Late st Contact Info) Description 07/06/2023 MyC Medical Advice [facility] Mental Health & Addiction [place] [phone] [address] Talita Bradshaw Social History Tobacco [...] any clubs o r organizations such as anabaptist groups, unions, fraternal or athletic groups, or [...] Answer Date Recorded PHQ-2 Score 0 06/22/2023 [facility] of Occupat ional Health - [...] in an abandoned building, in an overnight prison, or couch-surfing.) Yes 06/22/2023 Are you worried [...] [facility] Breast Center Imaging [address] 2nd [place] [address] Luna Simons MD [address] [place] [address] 09/15/2025 10:00 AM CDT Oncology Visit [facility] 909 [place] [phone] Luna Simons MD 420 [facility] 480 [place] [address] documented as of this encounter Visit Diagnoses Not on filedocumented in this encounter Additional Health Concerns Assessment Noted Time PHQ-9 Depression Total Score: 0 06/22/19 24 4:03 PM INSTRUCTIONAL INTERVENTIONIST documented as of this encounter Care Teams Yarn Skeins Examiner Relationship Specialty Start Date End Date Cyndie Eisenberg COATER SMOKING PIPE 100 [facility] [place] [place] [address] PCP - General 09/25/19 Rodney Natarajan MD 420 [facility] 195 [place] [address] General Surgery 09/25/19 Luna Simons MD [address] [place] [address] 480 [place] [address] Hematology 09/25/19 Caroline Duque, RN Specialty Merchandising Manager Breast Oncology 09/30/19 Martha White MD [address] [place] [address] truck unloader 11/01/19 Ankita Park MD [address] [place] [phone] truck unloader 06/10/20 Luna Simons MD 420 [facility] 480 [place] [address] Assigned Cancer Care Provider 09/12/21 01/18/24 Nadja Hagen MD [facility] [address] Floor 2, [address] [place] [address] Resident Psychiatry 04/01/22 05/13/24 Batool Atkinson, PhD LP 2450 [facility] F282 [place], [place] 412[address] Psychologist Licensed Mental Health 04/01/22 Prisca Miller MD 516 [facility] 295 [place], [place] 5[address] Resident Neurology 02/10/23 Jennyfer Steele APRN AIR CONDITIONING ENGINEER [facility]2 [address] [facility] [address], [place] [address] [place], [place] 84[address] Nurse Practitioner Psychiatry 02/23/23 Jennyfer Steele APRN AIR CONDITIONING ENGINEER [facility] [address], [place] [address] [place] [address] Assigned Behavioral Health Provider 06/30/23 Sadaf Apple NP Assigned PCP 07/21/23 09/18/23 [facility] [address] [place] [address] Assigned PCP 09/19/23 Yamel Saha PA-C 420 [facility] 480 [place] [address] Assigned Cancer Care Provider 01/19/24 04/19/24 Luna Simons MD [address] [address] Assigned Cancer Care Provider 04/20/24 documented as of this encounter
--- OUTSIDE RECORDS SUMMARY | 2024-10-15 18:38 | XMS_ITS | Encounter Summary ---
Author Organization [place] Address [address] [place] [address] Care Team Providers Care Bale Sewer Name Role Phone Cyndie Eisenberg NP Primary Care Provider + Rodney Natarajan MD Unavailable Luna Simons MD Unavailable +[phone] Caroline Duque RN Unavailable [phone] Martha White MD Unavailable [phone] Ankita Park MD Unavailable Luna Simons MD Unavailable [phone] Nadja Hagen MD Unavailable [phone] Batool Atkinson PhD LP Unavailable Prisca Miller MD Unavailable [phone] Jennyfer Steele APRN OUTSIDE PARTS SALESMAN Unavailable +[phone] Jennyfer Steele APRN OUTSIDE PARTS SALESMAN Unavailable +[phone] Sadaf Apple NP Unavailable Unavailable [facility] Unavailabl e Yamel Saha PA-C Unavailable [phone] Lnua Simons MD Unavailable [phone] Reason for Visit * Reason Onset Date Comments Call Back 08/17/2023 Encounter Details Date Type Department Care Team (Late st Contact Info) Description 08/17/2023 MyC Medical Advice [facility] Mental Health & Addiction [place] [id number] [address] [address] Jennyfer Steele APRN OUTSIDE PARTS SALESMAN [address] [place] [address] [place] [address] Call Back Social History Tobacco Use Types [...] How often do you attend chur or taoism services? More than 4 times per year 06/22/2023 Do you belong to any clubs o r organizations such as sabianist groups, unions, fraternal or athletic groups, or [...] Answer Date Recorded PHQ-2 Score 0 06/22/2023 [facility] of Occupat ional Health - Occupational Stress [...] in an abandoned building, in an overnight custodial, or couch-surfing.) Yes 06/22/2023 Are you worried [...] Received incoming call from patient returning this report writer's call. Patient is wanting to make edits to the letter. Shared she does not feel she has MDD or DAWIT and wants those removed from the letter. She feels if she had those diagnosis, she would not be able to care for her children. She is wantingto discuss this further with provider. Hob Machine Operator offered a sooner appt on 08/30 at [...] Procedure [facility] Breast Center Imaging [address] 2nd [place] [address] Luna Simons MD [address] [place] [address] 09/15/2025 10:00 AM CDT Oncology Visit [facility] [address] [place] [phone] Luna Simons MD [address] [place] [address] documented as of this encounter Visit Diagnoses Not on filedocumented in this encounter Additional Health Concerns Assessment Noted Time PHQ-9 Depression Total Score: 0 06/22/19 24 4:03 PM TOOL TROUBLE SHOOTER documented as of this encounter Care Teams Bale Sewer Relationship Specialty Start Date End Date Cyndie Eisenberg STITCH BONDER MACHINE OPERATOR HELPER [address] [place] [id number] PCP - General 09/25/19 Rodney Natarajan MD 420 [facility] 195 [place], [place] [address] General Surgery 09/25/19 Luna Simons MD 420 [facility] 480 [place], [place] [address] Hematology 09/25/19 Caroline Duque, ASHLIE Specialty Flying Shear Operator Breast Oncology 09/30/19 Martha White MD [address] [facility] [address] [place] [address] [place], [place] [address] spout liner 11/01/19 Ankita Park MD [address] [phone] spout liner 06/10/20 Luna Simons MD 420 [facility] 480 [place], [place] 114135 Assigned Cancer Care Provider 09/12/21 01/18/24 Nadja Hagen MD [address] 2, [address] [place], [place] 39[address] Resident Psychiatry 04/01/22 05/13/24 Batool Atkinson, PhD LP [address] [place] [address] Psychologist Licensed Mental Health 04/01/22 Prisca Miller MD 6 [facility] 295 [place], [place] 460325 Resident Neurology 02/10/23 Jennyfer Steele APRN OUTSIDE PARTS SALESMAN [address] [place] [address] Nurse Practitioner Psychiatry 02/23/23 Jennyfer Steele APRN OUTSIDE PARTS SALESMAN [address] [place] [address] 006624 Assigned Behavioral Health Provider 06/30/23 Sadaf Apple NP Assigned PCP 07/21/23 09/18/23 [facility] [address] [place] [address] Assigned PCP 09/19/23 Yamel Saha PA-C 420 [facility] 480 [place], [place] 7022[address] Assigned Cancer Care Provider 01/19/24 04/19/24 Luna Simons MD 420 [facility] 480 [place], [place] [address] Assigned Cancer Care Provider 04/20/24 documented as of this encounter
--- OUTSIDE RECORDS SUMMARY | 2024-10-15 18:38 | XMS_ITS | Encounter Summary ---
Author Organization [employer] Address [address] [place] [address] Care Team Providers Care Lawn Sprinkler Installer Name Role Phone Cyndie Eisenberg NP Primary Care Provider + Rodney Natarajan MD Unavailable [phone] Luna Simons MD Unavailable Caroline Duque RN Unavailable [phone] Martha White MD Unavailable [phone] Ankita Park MD Unavailable [phone] Batool Atkinson PhD LP Unavailable [phone] Prisca Miller MD Unavailable [phone] Jennyfer Steele APRN VERIFICATION SPECIALIST Unavailable +[phone] Jennyfer Steele APRN VERIFICATION SPECIALIST Unavailable +[phone] [facility] Unavailabl e Luna Simons MD Unavailable [phone] Encounter Details Date Type Department Care Team [...] often do you attend chur ch or christianity services? More than 4 times per year 06/22/2023 Do you belong to any clubs o r organizations such as quaker groups, unions, fraternal or athletic groups, or [...] Answer Date Recorded PHQ-2 Score 0 09/10/2024 [facility] - Occupational Stress Questionnaire Answer Date Recorded [...] [facility] Breast Center Imaging [address] 2nd [place] [address] Luna Simons MD [address] [place] [address] 049655 09/15/2025 10:00 AM CDT Oncology Visit [facility] [address] [place] [address] Luna Simons MD [address] [place] [address] 510965 documented as of this encounter Visit Diagnoses Not on filedocumented in this encounter Additional Health Concerns Assessment Noted Time PHQ-9 Depression Total Score: 0 09/11/19 25 9:09 AM CDT documented as of this encounter Care Teams Lawn Sprinkler Installer Relationship Specialty Start Date End Date Cyndie Eisenberg, AMANDA [address] [place] [address] PCP - General 09/25/19 Rodney Natarajan MD 420 [facility] 195 [place], [place] 194355 General Surgery 09/25/19 Luna Simons MD 420 [facility] 480 [place], [place] 753655 Hematology 09/25/19 Caroline Duque, ASHLIE Specialty Surgical Device Sales Representative Breast Oncology 09/30/19 Martha White MD [address] [place] [address] lead cargo mover 11/01/19 Ankita Park MD 2450 [facility] [address] [address] lead cargo mover 06/10/20 Batool Atkinson, PhD LP [address] [place], [place] 138044 Psychologist Licensed Mental Health 04/01/22 Prisca Miller MD 516 [facility] 295 [place], [place] 6[address]335 Resident Neurology 02/10/23 Jennyfer Steele APRN VERIFICATION SPECIALIST 2312 [address] [facility] [address] [place] [address] Nurse Practitioner Psychiatry 02/23/23 Jennyfer Steele APRN VERIFICATION SPECIALIST [facility]2 [address] [facility] [address] [place] [address] Assigned Behavioral Health Provider 06/30/23 [facility] [id number] [place] [address] Assigned PCP 09/19/23 Luna Simons MD [address] [place] [address] 480 [place], [place] 633285 Assigned Cancer Care Provider 04/20/24 documented as of this encounter
--- OUTSIDE RECORDS SUMMARY | 2024-10-15 18:38 | XMS_ITS | Encounter Summary ---
Author Organization [place] Address [address] [place] [address] Care Team Providers Care Cylinder Grinder Name Role Phone Cyndie Eisenberg NP Primary Care Provider + Rodney Natarajan MD Unavailable [phone] Luna Simons MD Unavailable Caroline Duque RN Unavailable [phone] Martha White MD Unavailable [phone] Ankita Park MD Unavailable [phone] Ankita Park MD Unavailable [phone] Jose Zaragoza NP Unavailable Luna Simons MD Unavailable Nadja Hagen MD Unavailable [phone] Batool Atkinson PhD LP Unavailable [phone] Prisca Miller MD Unavailable [phone] Jennyfer Steele APRN CATIA DESIGNER Unavailable +[phone] Jennyfer Steele APRN CATIA DESIGNER Unavailable +[phone] Sadaf Apple NP Unavailable Unavailable [facility] Unavailabl e Yamel Saha PA-C Unavailable [phone] Luna Simons MD Unavailable Encounter Details Date Type Department Care Team (Late st Contact Info) Description 02/04/2022 MyC Medical Advice [facility] & Addiction [place] [id number] [address] [address] [facility] Social History Tobacco Use Types Packs/Day Years [...] [facility] Breast Center Imaging [address] 2nd [place] [phone] Luna Simons MD [address] [place] [address] 682385 09/15/2025 10:00 AM CDT [facility] [address] [place] [phone] Luna Simons MD [address] [place] [address] documented as of this encounter Visit Diagnoses Not on filedocumented in this encounter Additional Health Concerns Infection Onset Date Last Indicated Resolved Time Rule Out COVID-19 01/24/2023 01/24/2023 01/24/2023 10:32 PM CDT Assessment Noted Time PHQ-9 Depression Total Score: 12 0216/2 022 8:00 AM RAIL OPERATOR documented as of this encounter Care Teams Cylinder Grinder Relationship Specialty Start Date End Date Cyndie Eisenberg NP [address] [place] [address] PCP - General 09/25/19 Rodney Natarajan MD 420 [facility] 195 [place], [place] 6467[address] General Surgery 09/25/19 Luna Simons MD 420 [facility] 480 [place], [place] 587675 MD Hematology 09/25/19 Caroline Duque, ASHLIE Specialty Business Process Architect Breast Oncology 09/30/19 [address] White [address] [facility] [address] [place], [place] 346914 ornamental metal worker 11/01/19 Ankita Park MD [address] [place] [address] Assigned Behavioral Health Provider 05/03/20 06/29/23 Ankita Park MD [address] [place] [address] ornamental metal worker 06/10/20 Jose Zaragoza, HEALTH SCIENCE INSTRUCTOR 6405 [facility] [place] [address] Assigned Heart and Vascular Provider 11/08/20 02/04/22 Luna Simons MD 420 [facility] 480 [place], [place] 523815 Assigned Cancer Care Provider 09/12/21 01/18/24 Nadja Hagen MD [address] [facility] Floor 2, [address] [place], [place] 12[address]4 Resident Psychiatry 04/01/22 05/13/24 Batool Atkinson, PhD LP 2450 [facility] [address] [place], [place] 534974 Psychologist Licensed Mental Health 04/01/22 Prisca Miller MD 516 [facility] 295 [place] [address] Resident Neurology 02/10/23 Jennyfer Steele APRN CATIA DESIGNER 2312 S [facility] [address] [place], [place] 717064 Nurse Practitioner Psychiatry 02/23/23 Jennyfer Steele APRN CATIA DESIGNER 2312 [address] [facility] [address] [place], [place] 899134 Assigned Behavioral Health Provider 06/30/23 Sadaf Apple NP Assigned PCP 07/21/23 09/18/[address] [address] Assigned PCP 09/19/23 Yamel Saha PA-C 420 [facility] 480 [place] [address] Assigned Cancer Care Provider 01/19/24 04/19/24 Luna Simons MD 420 [facility] 480 [place] [address] Assigned Cancer Care Provider 04/20/24 documented as of this encounter
--- OUTSIDE RECORDS SUMMARY | 2024-10-15 18:38 | XMS_ITS | Encounter Summary ---
Author Organization [place] Address [address] [place] [address] Care Team Providers Care Convenience Recycle Center Tech Name Role Phone Cyndie Eisenberg NP Primary Care Provider + Rodney Natarajan MD Unavailable [phone] Luna Simons MD Unavailable [phone] Caroline Duque RN Unavailable [phone] Martha White MD Unavailable [phone] Ankita Park MD Unavailable [phone] Batool Atkinson PhD LP Unavailable Prisca Miller MD Unavailable [phone] Jennyfer Steele APRN CUSTOMS COMPLIANCE ANALYST Unavailable [phone] Jennyfer Steele APRN CUSTOMS COMPLIANCE ANALYST Unavailable [phone] [facility] Unavailabl e Luna Simons MD Unavailable [phone] Reason for Referral * Diagnostic Imaging Mammo (Routine) - Pending Review Specialty Diagnoses / Procedures Referred By Gus t Referred To Contact Radiology. Diagnoses Invasive ductal carcinoma of breast, right (H) Procedures MA Screening Bilateral w/ Ashu Luna Simons MD [address] [place] [facility] 480 [place] [address] Phone: tel: fax: Referral ID Status Reason Start Date Expiration Date V isits Requested Visits Authorized [id number] Pending Review 09/20/2024 09/20/2025 1 1 Encounter Details Date Type Department Care Team (Late st Contact Info) Description 09/20/2024 Orders Only [facility] 909 [place] [address] Luna Simons MD [address] [address] Invasive ductal carcinoma of breast, [...] often do you attend chur ch or zoroastrianism services? More than 4 times per year 06/22/2023 Do you belong to any clubs o r organizations such as latter-day groups, unions, fraternal or athletic groups, or [...] Answer Date Recorded PHQ-2 Score 0 09/10/2024 [facility] - Occupational Stress Questionnaire Answer Date Recorded [...] [facility] Breast Center Imaging [place] 909 [facility] 2nd [place] [phone] Luna Simons MD 420 [facility] 480 [place], [place] [address]215 09/15/2025 10:00 AM CDT Oncology Visit [facility] 909 [place] [phone] Luna Simons MD 420 [facility] 480 [place] [address] Scheduled Orders Name Type Priority [...] documented as of this encounter Care Teams Convenience Recycle Center Tech Relationship Specialty Start Date End Date Cyndie Eisenberg NP [address] [place] [address] PCP - General 09/25/19 Rodney Natarajan MD 420 [facility] 195 [place], [place] 350575 General Surgery 09/25/19 Luna Simons MD [address] [place] [address] 480 [place] [address] Hematology 09/25/19 Caroline Duque, RN Specialty Protection Chief Industrial Plant Breast Oncology 09/30/19 Martha White MD 2312 S [facility] [address] [place], [place] 3620[address] load out supervisor 11/01/19 Ankita Park MD [facility] [address] [phone] load out supervisor 06/10/20 Batool Atkinson, PhD LP [facility] [address] [place], [place] 06817[address] Psychologist Licensed Mental Health 04/01/22 Prisca Miller MD 6 [facility] 295 [place], [place] 18[address]15 Resident Neurology 02/10/23 Jennyfer Steele APRN CUSTOMS COMPLIANCE ANALYST [facility]2 [address] [place], [place] 94[address] Nurse Practitioner Psychiatry 02/23/23 Jennyfer Steele APRN CUSTOMS COMPLIANCE ANALYST [address] [place] [address] [address]275 [place] [address] Assigned Behavioral Health Provider 06/30/23 [facility] [address] [place] [address] Assigned PCP 09/19/23 Luna Simons MD [address] [place] [address] 480 [place] [address] Assigned Cancer Care Provider 04/20/24 documented as of this encounter
--- OUTSIDE RECORDS SUMMARY | 2024-10-15 18:38 | XMS_ITS | Encounter Summary ---
Author Organization [facility] Address [address] [place] [address] Care Team Providers Care Air Cargo Ground Operations Supervisor Name Role Phone Cyndie Eisenberg NP Primary Care Provider + Rodney Natarajan MD Unavailable [phone] Luna Simons MD Unavailable Caroline Duque RN Unavailable [phone] Martha White MD Unavailable [phone] Ankita Park MD Unavailable [phone] Batool Atkinson PhD LP Unavailable Prisca Miller MD Unavailable Jennyfer Steele APRN RESIDENT DIRECTOR Unavailable [phone] Jennyfer Steele APRN RESIDENT DIRECTOR Unavailable [phone] [employer] Unavailabl e Luna Simons MD Unavailable [phone] Encounter Details Date Type Department Care Team (Late st Contact Info) Description 09/12/2024 Cortney Singh [facility] 909 [place] [address] Radhika Dyer RN Social History [...] 06/22/2023 How often do you attend [facility] or advent services? More than 4 times per year 06/22/2023 Do you belong to any clubs o r organizations such as hinduism groups, unions, fraternal or athletic groups, or [...] Answer Date Recorded PHQ-2 Score 0 09/10/2024 [facility] Stress Questionnaire Answer Date [...] [facility] Imaging [address] 2nd [place] [address] Luna Simons MD [address] [place] [address] 963165 09/15/2025 10:00 AM CDT Oncology Visit [facility] [address] [place] [address] Luna Simons MD [address] [place] [address], [place] 014995 documented as of this encounter Visit Diagnoses Not on filedocumented in this encounter Additional Health Concerns Assessment Noted Time PHQ-9 Depression Total Score: 0 09/11/19 25 9:09 AM CDT documented as of this encounter Care Teams Air Cargo Ground Operations Supervisor Relationship Specialty Start Date End Date Cyndie Eisenberg NP [address] [place] [address] PCP - General 09/25/19 Rodney Natarajan MD 420 [facility] 195 [place], [place] 529595 General Surgery 09/25/19 Luna Simons MD 420 [facility] 480 [place], [place] 351325 Hematology 09/25/19 Caroline Duque, RN Specialty Marine Diesel Mechanic Breast Oncology 09/30/19 Martha White MD [address] [place] [address] [address] [place], [place] 565974 stretch box tender 11/01/19 Ankita Park MD 2450 [facility] 2[place] [address] stretch box tender 06/10/20 Batool Atkinson, PhD LP 2450 [facility] [address] [place], [place] [address] Psychologist Licensed Mental Health 04/01/22 Prisca Miller MD 516 [facility] 295 [place] [address] Resident Neurology 02/10/23 Jennyfer Steele APRN RESIDENT DIRECTOR [address] [place], [place] [address] [place], [place] [address] Nurse Practitioner Psychiatry 02/23/23 Jennyfer Steele APRN RESIDENT DIRECTOR [address] [place], [place] [address]75 [place], [place] 10[address]24 Assigned Behavioral Health Provider 06/30/23 [facility] [address] [place] [address] 6314144 Assigned PCP 09/19/23 Luna Simons MD [address] [place] [address] 480 [place], [place] 636824[address] Assigned Cancer Care Provider 04/20/24 documented as of this encounter
--- OUTSIDE RECORDS SUMMARY | 2024-10-15 18:38 | XMS_ITS | Encounter Summary ---
Author Organization [employer] Address [address] [place] [address] Care Team Providers Care Gun Tester Name Role Phone Lucita French MD Primary Care Provider Encounter Details Date Type Department Care Team (Late st Contact Info) Description 02/13/2020 Lab Requisition [facility] [address] [place] [address] Cyndie Eisenberg, EXHIBIT ARTIST, EQUAL OPPORTUNITY DIRECTOR [address] [place] [address] Cough; Acute pharyngitis, unspecified; Contact with and [...] Detected Not Detected 02/13/2020 5:49 PM CDT [facility] Swab (Source Required) Non-blood Collection / Unknown 02/11/2020 2:32 PM CDT 02/13/2020 11:51 AM CDT Narrative [facility] - 02/13/2020 5:49 PM CDT Test performed by Sap Plant Maintenance Consultant Mediated Amplification. TMA has been shown to be equivalent to commercial real-time PCR tests. This test has been authorized by the FDA under an Emergency Use Authorization (EUA) for use by authorized laboratories. Cyndie Eisenberg APRN, CNP LAB_1 Fin al Result [facility] [address] [address] [phone] documented in this encounter Visit Diagnoses Diagnosis [...] documented as of this encounter Care Teams Gun Tester Relationship Specialty Start Date End Date Lucita French MD [address] [place] [address] PCP - General Family Practice 07/15/21 documented as of this encounter
--- OUTSIDE RECORDS SUMMARY | 2024-10-15 18:38 | XMS_ITS | Encounter Summary ---
Author Organization [facility] Address [address] [place] [address] Care Team Providers Care Educational Manager Name Role Phone Cyndie Eisenberg NP Primary Care Provider + Rodney Natarajan MD Unavailable [phone] Luna Simons MD Unavailable Caroline Duque RN Unavailable [phone] Martha White MD Unavailable [phone] Rodney Natarajan MD Unavailable [phone] Ankita Park MD Unavailable [phone] Ankita Park MD Unavailable [phone] Jose Zaragoza NP Unavailable [phone] Mio Mclean MD Unavailable [phone] Luna Simons MD Unavailable [phone] Nadja Hagen MD Unavailable [phone] Batool Atkinson PhD LP Unavailable [phone] Prisca Miller MD Unavailable [phone] Jennyfer Steele APRN TOLL COLLECTOR Unavailable +[phone] Jennyfer Steele APRN TOLL COLLECTOR Unavailable + Sadaf Apple NP Unavailable Unavailable [facility] Unavailabl e Yamel Saha PA-C Unavailable [phone] Luna Simons MD Unavailable [phone] Encounter Details Date Type Department Care Team (Late st Contact Info) Description 08/03/2021 MyC Medical Advice [facility] Mental Health & Addiction [address] [address] Ankita Park MD 7190 [facility] [place] [address] Anxiety (Primary Dx) Social History [...] [facility] Breast Center Imaging [address] 2nd [place] [phone] Luna Simons MD [address] [place] [address] 497375 09/15/2025 10:00 AM CDT Oncology Visit [facility] [address] [place] [address] Luna Simons MD [address] [place] [address] 860875 documented as of this encounter Visit Diagnoses Diagnosis Anxiety- Primary Anxiety state, unspecified documented in this encounter Additional Health Concerns Infection Onset Date Last Indicated Resolved Time Rule Out COVID-19 01/24/2023 01/24/2023 01/24/2023 10:32 PM CDT Assessment Noted Time PHQ-9 Depression Total Score: 12 022 8:00 AM COP WINDER documented as of this encounter Care Teams Educational Manager Relationship Specialty Start Date End Date Cyndie Eisenberg BUTTING SAW OPERATOR [address] [place] [address] PCP - General 09/25/19 Rodney Natarajan MD 420 [facility] 195 [place], [place] 979065 General Surgery 09/25/19 Luna Simons MD 420 [facility] 480 [place], [place] [address] Hematology 09/25/19 Caroline Duque, ASHLIE Specialty Jitney Driver Breast Oncology 09/30/19 Martha White MD [facility] [address] [place], [place] [address] pellet machine operator 11/01/19 Rodney Natarajan MD [address] 882975 Assigned Surgical Provider 03/20/20 08/07/21 Ankita Park MD [facility] [address] [address] Assigned Behavioral Health Provider 05/03/20 06/29/23 Ankita Park MD [facility] [address] [address] pellet machine operator 06/10/20 Jose Zaragoza, BUTTING SAW OPERATOR 6405 [place], [place] 2185[address] Assigned Heart and Vascular Provider 11/08/20 02/04/22 Mio Mclean MD 420 [facility] 494 [place], [place] 948625 Assigned Cancer Care Provider 06/27/21 09/11/21 Luna Simons MD 420 [facility] 480 [place], [place] [address]55 Assigned Cancer Care Provider 09/12/21 01/18/24 Nadja Hagen MD [address] [place] [address] Floor 2, [address] [place], [place] 431454 Resident Psychiatry 04/01/22 05/13/24 Batool Atkinson, PhD LP 2450 [facility] [address] [place], [place] [address] Psychologist Licensed Mental Health 04/01/22 Prisca Miller MD 6 [facility] 295 [place], [place] 285[address]85 Resident Neurology 02/10/23 Jennyfer Steele APRN TOLL COLLECTOR [facility] S [address] [place] [address] 994144 Nurse Practitioner Psychiatry 02/23/23 Jennyfer Steele APRN TOLL COLLECTOR [facility]2 [address] [place] [address] 940374 Assigned Behavioral Health Provider 06/30/23 Sadaf Apple NP Assigned PCP 07/21/23 09/18/23 [facility] [address] [place] [address] Assigned PCP 09/19/23 Yamel Saha PA-C [address] [place] [address] 964175 Assigned Cancer Care Provider 01/19/24 04/19/24 Luna Simons MD [address] [place] [address] 480455 Assigned Cancer Care Provider 04/20/24 documented as of this encounter
--- OUTSIDE RECORDS SUMMARY | 2024-10-15 18:38 | XMS_ITS | Encounter Summary ---
Author Organization [place] Address [address] [place] [address] Care Team Providers Care Community Music Therapist Name Role Phone Cyndie Eisenberg NP Primary Care Provider + Rodney Natarajan MD Unavailable [phone] Luna Simons MD Unavailable +[phone] Caroline Duque RN Unavailable [phone] Martha White MD Unavailable [phone] Ankita Park MD Unavailable [phone] Batool Atkinson PhD LP Unavailable +[phone] Prisca Miller MD Unavailable +[phone] BOSS Unavailable +[phone] BOSS Unavailable +[phone] [facility] Unavailabl e Luna Simons MD Unavailable +[phone] Encounter Details Date Type Department Care Team (Late st Contact Info) Description 09/13/2024 Cortney Singh [facility] 909 [place] [address] Radhika Dyer RN Social History [...] week 06/22/2023 How often do you attend [facility] or spiritism services? More than 4 times per year 06/22/2023 Do you belong to any clubs o r organizations such as jewish groups, unions, fraternal or athletic groups, or [...] Answer Date Recorded PHQ-2 Score 0 09/10/2024 [facility] Questionnaire Answer Date [...] in an abandoned building, in an overnight care home, or couch-surfing.) Yes 06/22/2023 Are you worried [...] [facility] Breast Center Imaging [address] 2nd [place] [address] Luna Simons MD [address] [place] [address] 081905 09/15/2025 10:00 AM CDT Oncology Visit [facility] [address] [place] [address] Luna Simons MD [address] [place] [address], [place] [address]35 documented as of this encounter Visit Diagnoses Not on filedocumented in this encounter Additional Health Concerns Assessment Noted Time PHQ-9 Depression Total Score: 0 09/11/19 25 9:09 AM CDT documented as of this encounter Care Teams Community Music Therapist Relationship Specialty Start Date End Date Cyndie Eisenberg NP [address] [place] [address] PCP - General 09/25/19 Rodney Natarajan MD 420 [facility] 195 [place], [place] [address]285 General Surgery 09/25/19 Luna Simons MD 420 [facility] 480 [place], [place] 4[address] Hematology 09/25/19 Caroline Duque, RN Specialty Cutter Out Breast Oncology 09/30/19 Martha White MD [address] [place] [address] [address] [place], [place] 098464 enterprise application analyst 11/01/19 Ankita Park MD 2450 [facility] [address] [phone] enterprise application analyst 06/10/20 Batool Atkinson, PhD LP 2450 [facility] F282 [place], [place] 0[address] Psychologist Licensed Mental Health 04/01/22 Prisca Miller MD 516 [facility] 295 [place] [address] Resident Neurology 02/10/[address] [place], [place] [address] [place], [place] 3[address]24 Nurse Practitioner Psychiatry 02/23/[address] [place], [place] [address] [place], [place] 706084 Assigned Behavioral Health Provider 06/30/23 [facility] [address] [place] [address] [id number] Assigned PCP 09/19/23 Luna Simons MD [address] [place] [address] 480 [place], [place] [phone] Assigned Cancer Care Provider 04/20/24 documented as of this encounter
--- OUTSIDE RECORDS SUMMARY | 2024-10-15 18:38 | XMS_ITS | Encounter Summary ---
Author Organization [facility] Address [address] [place] [address] Care Team Providers Care Truckman Name Role Phone Lucita French MD Primary Care Provider Encounter Details Date Type Department Care Team (Late st Contact Info) Description 01/18/2020 Lab Requisition [facility] [address] [place] [phone] Cyndie Eisenberg, MANAGER ORDER, GETTERING FILAMENT MACHINE OPERATOR [address] [place] [address] Encounter for screening for other viral diseases [...] Detected Not Detected 01/18/2020 9:10 PM CDT [facility] Swab (Source Required) Non-blood Collection / Unknown 01/17/2020 9:09 AM CDT 01/18/2020 8:18 AM CDT [facility]ative [facility] 01/18/2020 9:10 PM CDT Test performed by Nucelic Acid Amplification. This test has been authorized by the FDA under an Emergency Use Authorization (EUA) for use by authorized laboratories. us Cyndie Eisenberg APRN, GETTERING FILAMENT MACHINE OPERATOR LAB_1 Fin al Result [facility] [address] [address] [phone] documented in this encounter Visit Diagnoses Diagnosis [...] documented as of this encounter Care Teams Truckman Relationship Specialty Start Date End Date Lucita French MD [address] [place] [address] PCP - General Family Practice 07/15/21 documented as of this encounter
--- OUTSIDE RECORDS SUMMARY | 2024-10-15 18:38 | XMS_ITS | Encounter Summary ---
Author Organization [facility] Address [address] [place] [address] Care Team Providers Care Transmission Line Engineer Name Role Phone Cyndie Eisenberg NP Primary Care Provider + Rodney Natarajan MD Unavailable [phone] Luna Simons MD Unavailable [phone] Caroline Duque RN Unavailable [phone] Martha White MD Unavailable [phone] Ankita Park MD Unavailable [phone] Ankita Park MD Unavailable [phone] Luna Simons MD Unavailable [phone] Nadja Hagen MD Unavailable [phone] Batool Atkinson PhD LP Unavailable [phone] Prisca Miller MD Unavailable [phone] Jennyfer Steele APRN JIG WORKER Unavailable +[phone] Jennyfer Steele APRN JIG WORKER Unavailable + [phone] Sadaf Apple NP Unavailable Unavailable [facility] Unavailabl e Yamel Saha PA-C Unavailable [phone] Luna Simons MD Unavailable [phone] Encounter Details Date Type Department Care Team (Late st Contact Info) Description 04/06/2023 MyC Medical Advice [facility] Mental Health & Addiction [address] [phone] Ankita Park MD [address] [address] Social History Tobacco Use Types [...] 09/15/2025 9:15 AM CDT Ancillary Procedure [facility] Breast Center Imaging [place] [address] [place] [address] 2nd [place] [address] Luna Simons MD [address] [place] [address] 09/15/2025 10:00 AM CDT Oncology Visit [facility] 909 [place] [address] Luna Simons MD [address] [place] [address] 2180[address] documented as of this encounter Visit Diagnoses Not on filedocumented in this encounter Additional Health Concerns Assessment Noted Time PHQ-9 Depression Total Score: 22 022 3:25 PM MECHANICAL DESIGN TECHNICIAN documented as of this encounter Care Teams Transmission Line Engineer Relationship Specialty Start Date End Date Cyndie Eisenberg NP [address] [place] [address] PCP - General 09/25/19 Rodney Natarajan MD 420 [facility] 195 [place] [address] General Surgery 09/25/19 Luna Simons MD 420 [facility] 480 [place] [address] MD Hematology 09/25/19 Caroline Duque, ASHLIE Specialty Tea Tree Farm Worker Breast Oncology 09/30/19 Martha White MD [address] [place] [address] [place], [place] 0[address] statistical clerk advertising 11/01/19 Ankita Park MD [address] [place] [address] Assigned Behavioral Health Provider 05/03/20 06/29/23 Ankita Park MD [address] [place] [address] statistical clerk advertising 06/10/20 Luna Simons MD [address] [place] [address] 480 [place], [place] 380405 Assigned Cancer Care Provider 09/12/21 01/18/24 Nadja Hagen MD [address] Floor 2, [address] [place], [place] 4[address]14 Resident Psychiatry 04/01/22 05/13/24 Batool Atkinson, PhD LP 2450 [facility] F282 [place], [place] 156504 Psychologist Licensed Mental Health 04/01/22 Prisca Miller MD 6 [facility] 295 [place], [place] 489495 Resident Neurology 02/10/23 Jennyfer Steele APRN JIG WORKER [address] [place] [address] F275 [place] [address] Nurse Practitioner Psychiatry 02/23/23 Jennyfer Steele APRN JIG WORKER [address] [place] [address] Assigned Behavioral Health Provider 06/30/23 Sadaf Apple NP Assigned PCP 07/21/23 09/18/23 [facility] [address] [place] [address] Assigned PCP 09/19/23 Yamel Saha PA-C [address] [place] [address] 480 [place], [place] 712945 Assigned Cancer Care Provider 01/19/24 04/19/24 Luna Simons MD [address] [address] Assigned Cancer Care Provider 04/20/24 documented as of this encounter
--- OUTSIDE RECORDS SUMMARY | 2024-10-15 18:39 | XMS_ITS | Encounter Summary ---
Author Organization [facility] Address [address] [place] [address] Care Team Providers Care Customer Relations Consultant Name Role Phone Cyndie Eisenberg NP Primary Care Provider + Rodney Natarajan MD Unavailable [phone] Luan Simons MD Unavailable Caroline Duque RN Unavailable [phone] Martha White MD Unavailable Pedrito Ramirez MD Unavailable [phone] Rodney Natarajan MD Unavailable [phone] Ankita Park MD Unavailable [phone] Ankita Park MD Unavailable [phone] Mio Mclean MD Unavailable [phone] Luna Simons MD Unavailable Jose Zaragoza NP Unavailable Mio Mclean MD Unavailable [phone] Luna Simons MD Unavailable [phone] Nadja Hagen MD Unavailable [phone] Batool Atkinson PhD LP Unavailable [phone] Prisca Miller MD Unavailable Jennyfer Steele APRN DIAGNOSTIC RADIOLOGIST Unavailable + Jennyfer Steele INGOT SUPERVISOR DIAGNOSTIC RADIOLOGIST Unavailable + Sadaf Apple NP Unavailable Unavailable [facility] Unavailabl e Yamel Saha PA-C Unavailable [phone] Luna Simons MD Unavailable [phone] Encounter Details Date Type Department Care Team (Late st Contact Info) Description 06/25/2020 MyC Medical Advice [facility] 909 [place] [address] Luna Simons MD [address] [place] [address] Social History Tobacco Use Types Packs/Day [...] COVID-19? No / Unsure 06/03/2020 9:30 AM PATTERN WHEEL MAKER documented as of this encounter Plan of Treatment Upcoming Encounters Date Type Department Care Team (Late st Contact Info) Description 09/15/2025 9:15 AM CDT Ancillary Procedure [facility] Breast Center Imaging [place] 909 [facility] 2nd [place] [address] Luna Simons MD [address] [place] [address] 09/15/2025 10:00 AM CDT Oncology Visit [facility] 909 [place] [phone] Luna Simons MD [address] 744[address] documented as of this encounter Visit Diagnoses Not on filedocumented in this encounter Additional Health Concerns Infection Onset Date Last Indicated Resolved Time Rule Out COVID-19 01/24/2023 01/24/2023 01/24/2023 10:32 PM CDT documented as of this encounter Care Teams Customer Relations Consultant Relationship Specialty Start Date End Date Cyndie Eisenberg NP [address] [place] [address] PCP - General 09/25/19 Rodney Natarajan MD [address] 013605 General Surgery 09/25/19 Luna Simons MD [address] 578085 Hematology 09/25/19 Caroline Duque, RN Specialty Senior Climate Advisor Breast Oncology 09/30/19 Martha White MD [address] [place] [address] [address] [place] [address] knife glazer 11/01/19 Pedrito Ramirez MD 6405 [facility] [address] [place], [place] 831875 Assigned Heart and Vascular Provider 03/20/20 11/07/20 Rodney Natarajan MD [address] 324775 Assigned Surgical Provider 03/20/20 08/07/21 Ankita Park MD [address] [place] [phone] Assigned Behavioral Health Provider 05/03/20 06/29/23 Ankita Park MD [address] [place] [address] knife glazer 06/10/20 Mio Mclean MD [address] 555095 Assigned Cancer Care Provider 05/10/20 07/25/20 Luna Simons MD [address] [place] [address] Assigned Cancer Care Provider 07/26/20 06/26/21 Jose Zaragoza NP 6405 [place] [address] Assigned Heart and Vascular Provider 11/08/20 02/04/22 Mio Mclean MD [address] [address] Assigned Cancer Care Provider 06/27/21 09/11/21 Luna Simons MD [address] [address] Assigned Cancer Care Provider 09/12/21 01/18/24 Nadja Hagen MD [address] [place] [address] Floor 2, [address] [place] [address] Resident Psychiatry 04/01/22 05/13/24 Batool Atkinson, PhD LP 2450 [facility] F282 [place] [address] Psychologist Licensed Mental Health 04/01/22 Prisca Miller MD 6 [facility] 295 [place], [place] 139575 Resident Neurology 02/10/23 Jennyfer Steele APRN DIAGNOSTIC RADIOLOGIST [address] [place] [address], [place] [address] [place] [address] Nurse Practitioner Psychiatry 02/23/23 Jennyfer Steele APRN DIAGNOSTIC RADIOLOGIST [address] [place] [address] [address]275 [place] [address] Assigned Behavioral Health Provider 06/30/23 Sadaf Apple NP Assigned PCP 07/21/23 09/18/23 [facility] [address] [place] [address] Assigned PCP 09/19/23 Yamel Saha PA-C 420 [facility] 480 [place], [place] 454505 Assigned Cancer Care Provider 01/19/24 04/19/24 Luna Simons MD 420 [facility] 480 [place], [place] 37[address]95 Assigned Cancer Care Provider 04/20/24 documented as of this encounter
--- OUTSIDE RECORDS SUMMARY | 2024-10-15 18:39 | XMS_ITS | Encounter Summary ---
Author Organization [place] Address [address] [place] [address] Care Team Providers Care Refrigeration Operator Name Role Phone Cyndie Eisenberg NP Primary Care Provider + Rodney Natarajan MD Unavailable [phone] Luna Simons MD Unavailable [phone] Caroline Duque RN Unavailable Martha Whtie MD Unavailable [phone] Ankita Park MD Unavailable [phone] Luna Simons MD Unavailable [phone] Nadja Hagen MD Unavailable [phone] Batool Atkinson PhD LP Unavailable [phone] Prisca Miller MD Unavailable [phone] Jennyfer Steele APRN BICYCLE TAXI DRIVER Unavailable [phone] Jennyfer Steele APRN BICYCLE TAXI DRIVER Unavailable [phone] [facility] Unavailabl e Yamel Saha PA-C Unavailable [phone] Luna Simons MD Unavailable [phone] Encounter Details Date Type Department Care Team (Late st Contact Info) Description 11/09/2023 [place] Medical Advice [facility] Mental Health & Addiction [address] [address] Talita Bradshaw Social History Tobacco [...] 06/22/2023 How often do you attend [facility] or church services? More than 4 times per year 06/22/2023 Do you belong to any clubs o r organizations such as holiness groups, unions, fraternal or athletic groups, or [...] Answer Date Recorded PHQ-2 Score 0 11/09/2023 [facility] - Occupational [...] Description 09/15/2025 9:15 AM CDT Ancillary Procedure [facility] Breast Center Imaging [place] 909 [facility] 2nd [place] [address] Luna Simons MD [address] [place] [address] 134765 09/15/2025 10:00 AM CDT Oncology Visit [facility] 909 [place] [phone] Luna Simons MD 420 [facility] 480 [place], [place] [address] documented as of this encounter Visit Diagnoses Not on filedocumented in this encounter Additional Health Concerns Assessment Noted Time PHQ-9 Depression Total Score: 0 06/22/19 24 4:03 PM DIRECTOR CLINICAL APPLICATIONS documented as of this encounter Care Teams Refrigeration Operator Relationship Specialty Start Date End Date Cyndie Eisenberg TDP DISPLAYS ANALYST [address] [place] [address] PCP - General 09/25/19 Rodney Natarajan MD 420 [facility] 195 [place], [place] 89[address] General Surgery 09/25/19 Luna Simons MD [address] [place] [address] 386475 Hematology 09/25/19 Caroline Duque, RN Specialty Assistant Casino Shift Manager Breast Oncology 09/30/19 Martha White MD [address] [place], [place] [address] mold laminator 11/01/19 Ankita Park MD [address] [place] [phone] mold laminator 06/10/20 Luna Simons MD [address] [place] [address] Assigned Cancer Care Provider 09/12/21 01/18/24 Nadja Hagen MD [address] [place] [address] Floor 2, [address] [place] [address] Resident Psychiatry 04/01/22 05/13/24 Batool Atkinson, PhD LP [address] [place] [address] F[address] [place] [address] Psychologist Licensed Mental Health 04/01/22 Prisca Miller MD [address] [place] [address] 295 [place], [place] [address] Resident Neurology 02/10/23 Jennyfer Steele APRN BICYCLE TAXI DRIVER [address] [place] [address], [place] [address] [place] [address] Nurse Practitioner Psychiatry 02/23/23 Jennyfer Steele APRN BICYCLE TAXI DRIVER [address] [place] [address] [address] [place] [address] Assigned Behavioral Health Provider 06/30/[address] [address] Assigned PCP 09/19/23 Yamel Saha PA-C [address] [place] [address] 480 [place] [address] Assigned Cancer Care Provider 01/19/24 04/19/24 Luna Simons MD [address] [place] [address] 480 [place] [address] Assigned Cancer Care Provider 04/20/24 documented as of this encounter
--- OUTSIDE RECORDS SUMMARY | 2024-10-15 18:39 | XMS_ITS | Encounter Summary ---
Author Organization [place] Address [address] [place] [address] Care Team Providers Care Outside Sales Associate Name Role Phone Cyndie Eisenberg NP Primary Care Provider + Rodney Natarajan MD Unavailable Luna Simons MD Unavailable +[phone] Caroline Duque RN Unavailable [phone] Martha White MD Unavailable [phone] Ankita Park MD Unavailable [phone] Ankita Park MD Unavailable [phone] Luna Simons MD Unavailable [phone] Nadja Hagen MD Unavailable [phone] Batool Atkinson PhD LP Unavailable [phone] Prisca Miller MD Unavailable [phone] Jennyfer Steele APRN BRACELET FORM COVERER Unavailable +[phone] Jennyfer Steele APRN BRACELET FORM COVERER Unavailable + [phone] Sadaf Apple NP Unavailable Unavailable [facility] Unavailabl e Yamel Saha PA-C Unavailable [phone] Luna Simons MD Unavailable [phone] Encounter Details Date Type Department Care Team (Late st Contact Info) Description 08/24/2022 MyC Medical Advice [facility] Mental Health & Addiction [address] [phone] Ankita Park MD [address] [address] Social History Tobacco Use Types [...] Ancillary Procedure [facility] Imaging [place] [address] [place] [address] 2nd [place] [phone] Luna Simons MD [address] [place] [address] 09/15/2025 10:00 AM CDT Oncology Visit [facility] 909 [place] [address] Luna Simons MD [address] [place] [address] 972905 documented as of this encounter Visit Diagnoses Not on filedocumented in this encounter Additional Health Concerns Infection Onset Date Last Indicated Resolved Time Rule Out COVID-19 01/24/2023 01/24/2023 01/24/2023 10:32 PM CDT Assessment Noted Time PHQ-9 Depression Total Score: 22 022 3:25 PM SUPPLEMENTAL MANAGER documented as of this encounter Care Teams Outside Sales Associate Relationship Specialty Start Date End Date Rafaelrafal Cyndie Ann, AMANDA [address] [place] [address] PCP - General 09/25/19 Rodney Natarajan MD [address] [place] [facility] 195 [place], [place] 9[address] General Surgery 09/25/19 Luna Simons MD 420 [facility] 480 [place], [place] [address] Hematology 09/25/19 Caroline Duque, ASHLIE Specialty Window Trimmer Apprentice Breast Oncology 09/30/19 Martha White MD [address] [facility] [place] [address] [place], [place] 7942[address] construction director 11/01/19 Ankita Park MD [address] [place] [address] Assigned Behavioral Health Provider 05/03/20 06/29/23 Ankita Park MD [address] [place] [phone] construction director 06/10/20 Luna Simons MD 420 [facility] 480 [place], [place] [address] Assigned Cancer Care Provider 09/12/21 01/18/24 Nadja Hagen MD 2312 S [facility] Floor 2, [address] [place], [place] [address] Resident Psychiatry 04/01/22 05/13/24 Batool Atkinson, PhD LP [address] [place], [place] 278[address] [place], [place] [address] Psychologist Licensed Mental Health 04/01/22 Prisca Miller MD 6 [facility] 295 [place], [place] [address] Resident Neurology 02/10/23 Jennyfer Steele APRN BRACELET FORM COVERER [address] [place] [address] 830994 Nurse Practitioner Psychiatry 02/23/23 Jennyfer Steele APRN BRACELET FORM COVERER [address] [place] [address] 862384 Assigned Behavioral Health Provider 06/30/23 Sadaf Apple NP Assigned PCP 07/21/23 09/18/23 [facility] [address] [place] [address] Assigned PCP 09/19/23 Yamel Saha PA-C 420 [facility] 480 [place], [place] 4[address] Assigned Cancer Care Provider 01/19/24 04/19/24 Luna Simons MD 420 [facility] 480 [place], [place] [address] Assigned Cancer Care Provider 04/20/24 documented as of this encounter
--- OUTSIDE RECORDS SUMMARY | 2024-10-15 18:39 | XMS_ITS | Encounter Summary ---
Author Organization [facility] Address [address] [place] [address] Care Team Providers Care Manager Heavy Duty Name Role Phone Cyndie Eisenberg NP Primary Care Provider + Rodney Natarajan MD Unavailable [phone] Luna Simons MD Unavailable [phone] Caroline Duque RN Unavailable [phone] Martha White MD Unavailable [phone] Ankita Park MD Unavailable [phone] Ankita Park MD Unavailable [phone] Luna Simons MD Unavailable [phone] Nadja Hagen MD Unavailable [phone] Batool Atkinson PhD LP Unavailable [phone] Prisca Miller MD Unavailable [phone] Jennyfer Steele APRN PRIMARY CARE COORDINATOR Unavailable +[phone] Jennyfer Steele APRN PRIMARY CARE COORDINATOR Unavailable + [phone] Sadaf Apple NP Unavailable Unavailable [facility] Unavailabl e Yamel Saha PA-C Unavailable +[phone] Luna Simons MD Unavailable +[phone] Encounter Details Date Type Department Care Team (Late st Contact Info) Description 08/18/2022 MyC Medical Advice [facility] Cancer [address] [phone] Luna Simons MD [address] [place] [address] [phone] Social History Tobacco Use Types Packs/Day Years [...] Ancillary Procedure [facility] Imaging [address] 2nd [place] [phone] Luna Simons MD [address] [place] [address] 604035 09/15/2025 10:00 AM CDT Oncology Visit [facility] [address] [place] [address] [phone] Luna Simons MD [address] [place] [address] 244805 documented as of this encounter Visit Diagnoses Not on filedocumented in this encounter Additional Health Concerns Infection Onset Date Last Indicated Resolved Time Rule Out COVID-19 01/24/2023 01/24/2023 01/24/2023 10:32 PM CDT Assessment Noted Time PHQ-9 Depression Total Score: 22 022 3:25 PM LIVESTOCK BUYER documented as of this encounter Care Teams Manager Heavy Duty Relationship Specialty Start Date End Date Cyndie Eisenberg Guera, ENTRY TABLE OPERATOR [address] [place] [address] PCP - General 09/25/19 Rodney Natarajan MD [address] [place] [address] [facility] 195 [place] [address] General Surgery 09/25/19 Luna Simons MD 420 [facility] 480 [place] [address] Hematology 09/25/19 Caroline Duque, ASHLIE Specialty Bearing Ring Assembler Breast Oncology 09/30/19 Martha White MD [address] [place] [address] [place], [place] 458644 estate agent 11/01/19 Ankita Park MD [facility] [address] [address] Assigned Behavioral Health Provider 05/03/20 06/29/23 Ankita Park MD [facility] [address] [phone] estate agent 06/10/20 Luna Simons MD 420 [facility] 480 [place], [place] 273205 Assigned Cancer Care Provider 09/12/21 01/18/24 Nadja Hagen MD [address] Floor 2, [address] [place], [place] 00[address] Resident Psychiatry 04/01/22 05/13/24 [place] [address] [place], [place] 5963182 [place] [address] Psychologist Licensed Mental Health 04/01/22 Prisca Miller MD 516 [facility] 295 [place], [place] 743875 Resident Neurology 02/10/23 Jennyfer Steele APRN PRIMARY CARE COORDINATOR [address] [place] [id number] [place] [address] Nurse Practitioner Psychiatry 02/23/23 Jennyfer Steele APRN PRIMARY CARE COORDINATOR [facility] [place] 4555675 [place] [address] Assigned Behavioral Health Provider 06/30/23 Sadaf Apple NP Assigned PCP 07/21/23 09/18/23 [facility] [id number] [place] [address] Assigned PCP 09/19/23 Yamel Saha PA-C 420 [facility] 480 [place], [place] 935273 Assigned Cancer Care Provider 01/19/24 04/19/24 Luna Simons MD 420 [facility] 480 [place], [place] 572235 Assigned Cancer Care Provider 04/20/24 documented as of this encounter
--- OUTSIDE RECORDS SUMMARY | 2024-10-15 18:39 | XMS_ITS | Encounter Summary ---
Author Organization [facility] Address [address] [place] [address] Care Team Providers Care Student Assistance Counselor Name Role Phone Cyndie Eisenberg NP Primary Care Provider + Rodney Natarajan MD Unavailable [phone] Luna Simons MD Unavailable [phone] Caroline Duque RN Unavailable [phone] Martha White MD Unavailable [phone] Pedrito Ramirez MD Unavailable [phone] Rodney Natarajan MD Unavailable [phone] Ankita Park MD Unavailable [phone] Ankita Park MD Unavailable [phone] Mio Mclean MD Unavailable [phone] Luna Simons MD Unavailable +[phone] Jose Zaragoza NP Unavailable Mio Mclean MD Unavailable [phone] Luna Simons MD Unavailable Nadja Hagen MD Unavailable Batool Atkinson PhD LP Unavailable Prisca Miller MD Unavailable Jennyfer Steele APRN FITTER HAND Unavailable + Jennyfer Steele APRN FITTER HAND Unavailable + Sadaf Apple NP Unavailable Unavailable [facility] Unavailabl e Yamel Saha PA-C Unavailable [phone] Luna Simons MD Unavailable Reason for Visit * Reason Onset Date Comments Refill Request 07/06/2020 Trazodone 50 mg - not needed Encounter Details Date Type Department Care Team (Late st Contact Info) Description 07/06/2020 MyC Medical Advice [facility] Mental Health & Addiction [place] [id number] [address] [address] Ankita Park MD [address] [address] Refill Request (Trazodone 50 mg [...] COVID-19? No / Unsure 07/07/2020 1:06 PM MACHINE STUFFER AUTOMATIC documented as of this encounter Miscellaneous Notes * Telephone Encounter - Alan Nino RN - 07/07/2020 10:30 AM CST Fingernail Technician called pharmacy ([phone]) and Boy confirmed that an order was available. Requested it be filled. Routed message to pt via MyChart. INE STUFFER AUTOMATIC * Telephone Encounter - Alan Nino RN - 07/06/2020 12:47 PM CST Disp Refills Start End [place] traZODone (DESYREL) 50 MG tablet 180 tablet 0 06/21/2020 No Sig: May take up to 3 tabs (150mg) by mouth as needed for insomnia every night. Caution daytime sedation. Sent to pharmacy as: traZODone HCl 50 MG Oral Tablet (DESYREL) Class: E-Prescribe Order: [id number] E-Prescribing Status: Receipt confirmed by pharmacy (06/21/2020 10:55 PM MACHINE STUFFER AUTOMATIC) Pharmacy [id number] [address] Dispensed Days Supply Quantity Provider Pharmacy TRAZODONE 50 MG TABLET 05/27/2020 30 90 Units ANKITA PARK [id number] - ... INE STUFFER AUTOMATIC INE STUFFER AUTOMATIC INE STUFFER AUTOMATIC documented in this encounter Plan of Treatment Upcoming Encounters Date Type Department Care Team (Late st Contact Info) Description 09/15/2025 9:15 AM CDT Ancillary Procedure [facility] Breast [facility] Imaging [address] 2nd [place] [address] Luna Simons MD [address] [place] [address] 342195 09/15/2025 10:00 AM CDT Oncology Visit [facility] [address] [place] [address] Luna Simons MD [address] [place] [address] 600435 documented as of this encounter Visit Diagnoses Not on filedocumented in this encounter Additional Health Concerns Infection Onset Date Last Indicated Resolved Time Rule Out COVID-19 01/24/2023 01/24/2023 01/24/2023 10:32 PM CDT documented as of this encounter Care Teams Student Assistance Counselor Relationship Specialty Start Date End Date Cyndie Eisenberg PRINT PRESS OPERATOR [address] [place] [address] PCP - General 09/25/19 Rodney Natarajan MD [address] [place] [address] [facility] 195 [place], [place] 331015 General Surgery 09/25/19 Luna Simons MD [address] [place] [address] [facility] 480 [place], [place] 013155 Hematology 09/25/19 Caroline Duque, RN Specialty Garage Mechanic Breast Oncology 09/30/19 Martha White MD [address] [place], [place] [phone] manager rail 11/01/19 Pedrito Ramirez MD 6405 [facility] [address] [place] 792465 Assigned Heart and Vascular Provider 03/20/20 11/07/20 Rodney Natarajan MD [address] [place] [address] [facility] 195 [place], [place] 614345 Assigned Surgical Provider 03/20/20 08/07/21 Ankita Park MD [address] [place] [phone] Assigned Behavioral Health Provider 05/03/20 06/29/23 Ankita Park MD 2450 [facility] [place] [phone] manager rail 06/10/20 Mio Mclean MD 420 [facility] 494 [place], [place] 012505 Assigned Cancer Care Provider 05/10/20 07/25/20 Luna Simons MD [address] 892115 Assigned Cancer Care Provider 07/26/20 06/26/21 Jose Zaragoza NP 6405 [place], [place] 205065 Assigned Heart and Vascular Provider 11/08/20 02/04/22 Mio Mclean MD [address] 431525 Assigned Cancer Care Provider 06/27/21 09/11/21 Luna Simons MD [address] [place] [address] Assigned Cancer Care Provider 09/12/21 01/18/24 Nadja Hagen MD [address] Floor 2, [address] [place], [place] 903334 Resident Psychiatry 04/01/22 05/13/24 Batool Atkinson, PhD LP [address] [place] [address] [address] [place] [address] Psychologist Licensed Mental Health 04/01/22 Prisca Miller MD 516 [facility] 295 [place] [address] Resident Neurology 02/10/23 Jennyfer Steele APRN FITTER HAND [address] [place] [address] Nurse Practitioner Psychiatry 02/23/23 Jennyfer Steele APRN FITTER HAND [address] [place] [address] Assigned Behavioral Health Provider 06/30/23 Sadaf Apple NP Assigned PCP 07/21/23 09/18/23 [facility] [address] [place] [address] Assigned PCP 09/19/23 Yamel Saha PA-C 420 [facility] 480 [place] [address] Assigned Cancer Care Provider 01/19/24 04/19/24 Luna Simons MD 420 [facility] 480 [place] [address] Assigned Cancer Care Provider 04/20/24 documented as of this encounter
--- OUTSIDE RECORDS SUMMARY | 2024-10-15 18:39 | XMS_ITS | Encounter Summary ---
Author Organization [facility] Address [address] [place] [address]46 Care Team Providers Care Loss Prevention Representative Name Role Phone Cyndie Eisenberg NP Primary Care Provider + Rodney Natarajan MD Unavailable [phone] Luna Simons MD Unavailable [phone] Caroline Duque RN Unavailable [phone] Martha White MD Unavailable [phone] Ankita Park MD Unavailable [phone] Ankita Park MD Unavailable [phone] Luna Simons MD Unavailable [phone] Nadja Hagen MD Unavailable [phone] Batool Atkinson PhD LP Unavailable [phone] Prisca Miller MD Unavailable [phone] Jennyfer Steele APRN REFRACTORY TECHNICIAN Unavailable +[phone] Jennyfer Steele APRN REFRACTORY TECHNICIAN Unavailable + [phone] Sadaf Apple NP Unavailable Unavailable [facility] Unavailabl e Yamel Saha PA-C Unavailable [phone] Luna Simons MD Unavailable [phone] Reason for Visit * Reason Onset Date Comments Refill Request 07/25/2022 Encounter Details Date Type Department Care Team (Late st Contact Info) Description 07/25/2022 MyC Refill [facility] Mental Health & Addiction [address] [address] Ankita Park MD 0170 [facility] [place] [address] Refill Request Social History Tobacco [...] Coronavirus/COVID-19? No / Unsure 07/11/2022 8:30 AM DISTRICT SERVICE MANAGER documented as of this encounter Miscellaneous Notes * Telephone Encounter - Nikkie Diane RN - 08/03/2022 4:13 PM CST Client decided she would like to start the Chantix now and do the Cymbalta increase later. Refills of the 20 mg and 60 mg caps sent to pharmacy. Nikkie Diane RN on 08/03/2022 at 4:14 PM RICT SERVICE MANAGER * Telephone Encounter - Nikkie Diane RN - 08/03/2022 11:25 AM DISTRICT SERVICE MANAGER Images from the original note were not [...] LMK what she wants to do next. *Medical Lab Technologist contacted client in 08/02 Data Stream CBOThart encounter to confirm if she'd like to start Chantix first or increase the Cymbalta first Nikkie Diane RN on 08/03/2022 at 11:25 AM RICT SERVICE MANAGER * Telephone Encounter - Nikkie Diane, RN [...] Diane RN on 08/03/2022 at 7:33 AM RICT SERVICE MANAGER documented in this encounter Plan of Treatment Upcoming Encounters Date Type Department Care Team (Late st Contact Info) Description 09/15/2025 9:15 AM CDT Ancillary Procedure [facility] Breast Center Imaging [place] [address] [facility] 2nd [place] [phone] Luna Simons MD [address] [place] [address] [address] [place], [place] [phone] 09/15/2025 10:00 AM CDT Oncology Visit [facility] 909 [place] [address] Luna Simons MD [address] [place] [address] [address] [place], [place] 479155 documented as of this encounter Visit Diagnoses Diagnosis Anxiety Anxiety state, unspecified documented in this encounter Additional Health Concerns Infection Onset Date Last Indicated Resolved Time Rule Out COVID-19 01/24/2023 01/24/2023 01/24/2023 10:32 PM CDT Assessment Noted Time PHQ-9 Depression Total Score: 22 022 3:25 PM DISTRICT SERVICE MANAGER documented as of this encounter Care Teams Loss Prevention Representative Relationship Specialty Start Date End Date Cyndie Eisenberg NP [address] [place] [address] PCP - General 09/25/19 Rodney Natarajan MD [address] [place] [address] [address] [place], [place] 117415 General Surgery 09/25/19 Luna Simons MD 420 [facility] [address] [place] [address] Hematology 09/25/19 Caroline Duque, RN Specialty Clerk Secretary Breast Oncology 09/30/19 Martha White MD [address] [place] [address] [address] [place] [address] ring conductor 11/01/19 Ankita Park MD [facility] [address] [address] Assigned Behavioral Health Provider 05/03/20 06/29/23 Ankita Park MD [facility] [address] [address] ring conductor 06/10/20 Luna Simons MD [address] [place] [address] [address] [place] [address] Assigned Cancer Care Provider 09/12/21 01/18/24 Nadja Hagen MD [facility] [address] 2, [address] [place] [address] Resident Psychiatry 04/01/22 05/13/24 Batool Atkinson, PhD LP [facility]0 [facility] [address] [place] [address] Psychologist Licensed Mental Health 04/01/22 Prisca Miller MD 6 [facility] [address] [place] [address] Resident Neurology 02/10/23 Jennyfer Steele APRN REFRACTORY TECHNICIAN 2312 S [facility] [place] [address] [place] [address] Nurse Practitioner Psychiatry 02/23/23 Jennyfer Steele APRN REFRACTORY TECHNICIAN [address] [place], [place] 254604 Assigned Behavioral Health Provider 06/30/23 Sadaf Apple NP Assigned PCP 07/21/23 09/18/23 [facility] [address] [place] [address] Assigned PCP 09/19/23 Yamel Saha PA-C [address] [place] [address] 384135 Assigned Cancer Care Provider 01/19/24 04/19/24 Luna Simons MD [address] [place] [address] 625145 Assigned Cancer Care Provider 04/20/24 documented as of this encounter
--- OUTSIDE RECORDS SUMMARY | 2024-10-15 18:39 | XMS_ITS | Encounter Summary ---
Author Organization [facility] Address [address] [place] [address] Care Team Providers Care Data Keyer Name Role Phone Cyndie Eisenberg NP Primary Care Provider + Rodney Natarajan MD Unavailable [phone] Luna Simons MD Unavailable [phone] Caroline Duque RN Unavailable [phone] Martha White MD Unavailable [phone] Ankita Park MD Unavailable [phone] Ankita Park MD Unavailable [phone] Jose Zaragoza NP Unavailable Luna Simons MD Unavailable Nadja Hagen MD Unavailable [phone] Batool Atkinson PhD LP Unavailable [phone] Prisca Miller MD Unavailable [phone] Jennyfer Steele APRN BLURB WRITER Unavailable +[phone] Jennyfer Steele APRN BLURB WRITER Unavailable +[phone] Sadaf Apple NP Unavailable Unavailable [facility] Unavailabl e Yamel Saha PA-C Unavailable [phone] Luna Simons MD Unavailable Encounter Details Date Type Department Care Team (Late st Contact Info) Description 10/20/2021 MyC Medical Advice [facility] Cancer [address] [address] Luna Simons MD [address] [place] [address] Social History Tobacco Use Types Packs/Day Years [...] [facility] Breast [facility] Imaging [address] 2nd [place] [phone] Luna Simons MD [address] [place] [address] 09/15/2025 10:00 AM CDT Oncology Visit [facility] [address] [phone] Luna Simons MD [address] [place] [address] 202385 documented as of this encounter Visit Diagnoses Not on filedocumented in this encounter Additional Health Concerns Infection Onset Date Last Indicated Resolved Time Rule Out COVID-19 01/24/2023 01/24/2023 01/24/2023 10:32 PM CDT Assessment Noted Time PHQ-9 Depression Total Score: 12 022 8:00 AM SAP PROJECT MANAGER documented as of this encounter Care Teams Data Keyer Relationship Specialty Start Date End Date Cyndie Eisenberg NP [address] [place] [address] PCP - General 09/25/19 Rodney Natarajan MD 420 [facility] 195 [place], [place] 457185 General Surgery 09/25/19 Luna Simons MD 420 [facility] 480 [place], [place] 158875 Hematology 09/25/19 Caroline Duque, ASHLIE Specialty Business Risk Consultant Breast Oncology 09/30/19 Martha White MD [facility] [address] [place] [address] [address] [place], [place] 121704 clinic licensed practical nurse 11/01/19 Ankita Park MD [address] [place] [phone] Assigned Behavioral Health Provider 05/03/20 06/29/23 Ankita Park MD [address] [place] [phone] clinic licensed practical nurse 06/10/20 Jose Zaragoza, FRUIT DRYER 6405 [facility] [place] [address] Assigned Heart and Vascular Provider 11/08/20 02/04/22 Luna Simons MD 420 [facility] 480 [place] [address] Assigned Cancer Care Provider 09/12/21 01/18/24 Nadja Hagen MD [address] [place] [address] Floor 2, [address] [place], [place] 620064 Resident Psychiatry 04/01/22 05/13/24 Batool Atkinson, PhD LP [address] [place], [place] 1682882 [place], [place] 936434 Psychologist Licensed Mental Health 04/01/22 Prisca Miller MD 6 [facility] 295 [place], [place] 046035 Resident Neurology 02/10/23 Jennyfer Steele APRN BLURB WRITER [address] [place] [address], [facility] [address] [place], [place] 255054 Nurse Practitioner Psychiatry 02/23/23 Jennyfer Steele APRN BLURB WRITER [address] [place], [place] 57266[address] [place], [place] 224154 Assigned Behavioral Health Provider 06/30/23 Sadaf Apple NP Assigned PCP 07/21/23 09/18/23 [facility] [address] [place] [address] Assigned PCP 09/19/23 Yamel Saha PA-C [address] [place] [address] 480 [place], [place] 584115 Assigned Cancer Care Provider 01/19/24 04/19/24 Luna Simons MD [address] [place] [address] Assigned Cancer Care Provider 04/20/24 documented as of this encounter
--- OUTSIDE RECORDS SUMMARY | 2024-10-15 18:39 | XMS_ITS | Encounter Summary ---
Author Organization [facility] Address [address] [place] [address] Care Team Providers Care Legal Recruiter Name Role Phone Cyndie Eisenberg NP Primary Care Provider + Rodney Natarajan MD Unavailable [phone] Luna Simons MD Unavailable Caroline Duque RN Unavailable Martha White MD Unavailable [phone] Ankita Park MD Unavailable [phone] Nadja Hagen MD Unavailable Batool Atkinson PhD LP Unavailable [phone] Prisca Miller MD Unavailable Jennyfer Steele APRN SERVICE UNIT OPERATOR [employer] Unavailable +[phone] Jennyfer Steele APRN SERVICE UNIT OPERATOR [employer] WELL Unavailable +[phone] [facility] Unavailabl e Yamel Saha PA-C Unavailable [phone] Luna Simons MD Unavailable [phone] Encounter Details Date Type Department Care Team (Late st Contact Info) Description 04/01/2024 Cortney Loomis [facility] Clinic 909 [place] [phone] Luna Simons MD 420 [facility] 480 [place] [address] Social History Tobacco Use Types [...] How often do you attend chur or temple services? More than 4 times per year [...] Answer Date Recorded PHQ-2 Score 0 11/09/2023 [facility] of Occupat ional Health - [...] in an abandoned building, in an overnight group home, or couch-surfing.) Yes 06/22/2023 Are you [...] Description 09/15/2025 9:15 AM CDT Ancillary Procedure [facility] Breast Center Imaging [address] 2nd [place] [address] Luna Simons MD [address] [place] [address] 09/15/2025 10:00 AM CDT Oncology Visit [facility] 909 [place] [phone] Luna Simons MD 420 [facility] 480 [place] [address] documented as of this encounter Visit Diagnoses Not on filedocumented in this encounter Additional Health Concerns Assessment Noted Time PHQ-9 Depression Total Score: 0 06/22/19 24 4:03 PM FREIGHT CONDUCTOR documented as of this encounter Care Teams Legal Recruiter Relationship Specialty Start Date End Date Cyndie Eisenberg PUBLIC FINANCE SPECIALIST 100 [facility] [place] [address] PCP - General 09/25/19 Rodney Natarajan MD 420 [facility] 195 [place] [address] General Surgery 09/25/19 Luna Simons MD [address] [place] [address] 480 [place] [address] Hematology 09/25/19 Caroline Duque, RN Specialty Medicinal Plant Picker Breast Oncology 09/30/19 Martha White MD [address] [place] [address] [address] [place] [address] developer support engineer 11/01/19 Ankita Park MD [address] [place] [phone] developer support engineer 06/10/20 Nadja Hagen MD [address] [place] [address] Floor 2, [address] [place], [place] 450[address] Resident Psychiatry 04/01/22 05/13/24 Batool Atkinson, PhD LP 2450 [facility] [address] [place], [place] 621064 Psychologist Licensed Mental Health 04/01/22 Prisca Miller MD 516 [facility] 295 [place], [place] [address]265 Resident Neurology 02/10/23 Jennyfer Steele APRN SERVICE UNIT OPERATOR [employer] [address] [place] [address], [place] [address] [place], [place] 8[address]324 Nurse Practitioner Psychiatry 02/23/23 Jennyfer Steele APRN SERVICE UNIT OPERATOR [employer] [address] [place] [address], [place] [address] [place], [place] 718404 Assigned Behavioral Health Provider 06/30/23 [facility] [address] [place] [address] Assigned PCP 09/19/23 Yamel Saha PA-C 420 [facility] 480 [place] [address] Assigned Cancer Care Provider 01/19/24 04/19/24 Luna Simons MD 420 [facility] 480 [place], [place] 7[address]15 Assigned Cancer Care Provider 04/20/24 documented as of this encounter
--- OUTSIDE RECORDS SUMMARY | 2024-10-15 18:39 | XMS_ITS | Encounter Summary ---
Author Organization [place] Address [address] [place] [address] Care Team Providers Care Farm Mechanic Apprentice Name Role Phone Cyndie Eisenberg NP Primary Care Provider + Rodney Natarajan MD Unavailable [phone] Luna Simons MD Unavailable Caroline Duque RN Unavailable [phone] Martha White MD Unavailable Pedrito Ramirez MD Unavailable [phone] Rodney Natarajan MD Unavailable [phone] Ankita Park MD Unavailable [phone] Ankita Park MD Unavailable [phone] Mio Mclean MD Unavailable [phone] Luna Simons MD Unavailable Jose Zaragoza NP Unavailable Mio Mclean MD Unavailable [phone] Luna Simons MD Unavailable Nadja Hagen MD Unavailable [phone] Batool Atkinson PhD LP Unavailable Prisca Miller MD Unavailable [phone] Ivette, Jennyfer E DESIGN LEADER PRINCIPAL WEB DEVELOPER Unavailable + Jennyfer Steele DESIGN LEADER PRINCIPAL WEB DEVELOPER Unavailable + Sadaf Apple NP Unavailable Unavailable Clinic - [facility] Unavailabl e Yamel Saha PA-C Unavailable +[phone] Luna Simons MD Unavailable [phone] Encounter Details Date Type Department Care Team (Late Contact Info) Description 06/18/2020 MyC Medical Advice [facility] [address] [place] [address] Talita Bradshaw Social History Tobacco Use [...] COVID-19? No / Unsure 06/03/2020 9:30 AM VERIFICATION ENGINEER documented as of this encounter Plan of Treatment Upcoming Encounters Date Type Department Care Team (Late Contact Info) Description 09/15/2025 9:15 AM CDT Ancillary Procedure [facility] Breast Center Imaging [address] 2nd [place] [address] Luna Simons MD [address] [place] [address] 480 [place] [address] 09/15/2025 10:00 AM CDT Oncology Visit [facility] [address] [place] [address] Luna Simons MD [address] [place] [address] 480 [place] [address] documented as of this encounter Visit Diagnoses Not on filedocumented in this encounter Additional Health Concerns Infection Onset Date Last Indicated Resolved Time Rule Out COVID-19 01/24/2023 01/24/2023 01/24/2023 10:32 PM CDT documented as of this encounter Care Teams Farm Mechanic Apprentice Relationship Specialty Start Date End Date Cyndie Eisenberg NP [address] [place] [address] PCP - General 09/25/19 Rodney Natarajan MD 420 [facility] 195 [place] [address] General Surgery 09/25/19 Luna Simons MD [address] [place] [address] 480 [place] [address] Hematology 09/25/19 Caroline Duque, RN Specialty Statuary Painter Breast Oncology 09/30/19 Martha White MD [address] [place] [address] [place] [address] stereotyper helper 11/01/19 Pedrito Ramirez MD [address] [place] [address] [place] [address] Assigned Heart and Vascular Provider 03/20/20 11/07/20 Rodney Natarajan MD 420 [facility] 195 [place] [address] Assigned Surgical Provider 03/20/20 08/07/21 Ankita Park MD 2450 [facility] [place] [phone] Assigned Behavioral Health Provider 05/03/20 06/29/23 Ankita Park MD [address] [phone] stereotyper helper 06/10/20 Mio Mclean MD 420 [facility] 494 [place], [place] 546235 Assigned Cancer Care Provider 05/10/20 07/25/20 Luna Simons MD 420 [facility] 480 [place], [place] 700345 Assigned Cancer Care Provider 07/26/20 06/26/21 Jose Zaragoza NP 6405 [place], [place] 893415 Assigned Heart and Vascular Provider 11/08/20 02/04/22 Mio Mclean MD [address] [place] [address] [address] Assigned Cancer Care Provider 06/27/21 09/11/21 Luna Simons MD 420 [facility] 480 [place], [place] [address] Assigned Cancer Care Provider 09/12/21 01/18/24 Nadja Hagen MD [address] Floor 2, [address] [place], [place] 38[address] Resident Psychiatry 04/01/22 05/13/24 Batool Atkinson, PhD LP 2450 [facility] [address] [place], [place] 224874 Psychologist Licensed Mental Health 04/01/22 Prisca Miller MD 6 [facility] 295 [place], [place] 638615 Resident Neurology 02/10/23 Jennyfer Steele APRN PRINCIPAL WEB DEVELOPER [address] [place] [address] [address]275 [place] [address] Nurse Practitioner Psychiatry 02/23/23 Jennyfer Steele APRN PRINCIPAL WEB DEVELOPER [address] [place] [address] Assigned Behavioral Health Provider 06/30/23 Sadaf Apple NP Assigned PCP 07/21/23 09/18/23 [facility] [address] [place] [address] Assigned PCP 09/19/23 Yamel Saha PA-C [address] [place] [address] 480 [place], [place] 343765 Assigned Cancer Care Provider 01/19/24 04/19/24 Luna Simons MD [address] [address] Assigned Cancer Care Provider 04/20/24 documented as of this encounter
--- OUTSIDE RECORDS SUMMARY | 2024-10-15 18:39 | XMS_ITS | Encounter Summary ---
Author Organization [place] Address [address] [place] [address] Care Team Providers Care Shot Polisher Name Role Phone Cyndie Eisenberg NP Primary Care Provider + Rodney Natarajan MD Unavailable [phone] Luna Simons MD Unavailable [phone] Caroline Duque RN Unavailable [phone] Martha White MD Unavailable Pedrito Ramirez MD Unavailable [phone] Rodney Natarajan MD Unavailable [phone] Ankita Park MD Unavailable [phone] Ankita Park MD Unavailable [phone] Mio Mclean MD Unavailable [phone] Luna Simons MD Unavailable [phone] Jose Zaragoza NP Unavailable Mio Mclean MD Unavailable [phone] Luna Simons MD Unavailable [phone] Nadja Hagen MD Unavailable Batool Atkinson PhD LP Unavailable Prisca Miller MD Unavailable [phone] Jennyfer Steele APRN FINANCIAL PLANNING ADVISER Unavailable + Jennyfer Steele APRN FINANCIAL PLANNING ADVISER Unavailable + Sadaf Apple NP Unavailable Unavailable Clinic - [facility] Unavailabl e Yamel Saha PA-C Unavailable [phone] Luna Simons MD Unavailable Encounter Details Date Type Department Care Team (Late st Contact Info) Description 07/22/2020 MyC Medical Advice [facility] & [facility] [place] [id number] [address] [address] Ankita Park MD [address] [address] Anxiety Social History Tobacco Use [...] COVID-19? No / Unsure 07/16/2020 9:13 AM SLAB MILLER OPERATOR documented as of this encounter Miscellaneous [...] send a BP record to us via [employer] in a couple of weeks. Thanks! Veneer Matcher called pharmacy ([phone]) and was informed by Toshia that a 90- capsule supply of duloxetine 60 mg and a 90-capsule supply of trazodone 50 mg was available. Veneer Matcher e-prescribed 90-capsule supply of duloxetine 60 mg to requested pharmacy and added a note todiscontinue 30 mg order. Routed message to pt via [employer] reviewing provider recommendations and inquiring on trazodone use. MILLER OPERATOR * Telephone Encounter - Alan Nino RN - 07/22/2020 2:39 PM CST Last seen: 06/09 RTC: 08/18 Non-provider cancel: None No-show: None Next appt: 08/18 Incoming refill from patient via [employer] Medication requested: Disp Refills Start End SHIRLEY [...] 05/01/2020 90 90 Units [facility]ITA P[facility] - ... DULOXETINE HCL DR 60 MG CAP 05/01/2020 90 90 Units [facility] - ... Dispensed Days Supply Quantity Provider Pharmacy TRAZODONE 50 MG TABLET 07/07/2020 30 90 Units [facility]ITA [facility] 05[facility] - ... Cymbalta was increased from 60 mg to 90 mg on 04/06/20. Routed message to pt via [employer] inquiring on reason for Cymbalta reduction request. MILLER OPERATOR documented in this encounter Plan of Treatment Upcoming Encounters Date Type Department Care Team (Late st Contact Info) Description 09/15/2025 9:15 AM CDT Ancillary Procedure [facility] Breast Center Imaging [address] 2nd [place] [phone] Luna Simons MD 420 [facility] 480 [place], [place] [address] 09/15/2025 10:00 AM CDT Oncology Visit [facility] [address] [place] [phone] Luna Simons MD [address] [place] [id number] documented as of this encounter Visit Diagnoses Diagnosis Anxiety Anxiety state, unspecified documented in this encounter Additional Health Concerns Infection Onset Date Last Indicated Resolved Time Rule Out COVID-19 01/24/2023 01/24/2023 01/24/2023 10:32 PM CDT documented as of this encounter Care Teams Shot Polisher Relationship Specialty Start Date End Date Cyndie Eisenberg NP [address] [place] [address] PCP - General 09/25/19 Rodney Natarajan MD [address] [place] [address] 195 [place], [place] 592095 General Surgery 09/25/19 Luna Simons MD [address] [place] [address] 480 [place], [place] 507845 Hematology 09/25/19 Caroline Duque, RN Specialty Renal Dialysis Technician Breast Oncology 09/30/19 Martha White MD [address] [place] [address] [address] [place], [place] 686964 services clerk 11/01/19 Pedrito Ramirez MD 6405 [facility] W[address] [place] 499925 Assigned Heart and Vascular Provider 03/20/20 11/07/20 Rodney Natarajan MD 420 [facility] 195 [place], [place] 205615 Assigned Surgical Provider 03/20/20 08/07/21 Ankita Park MD 2450 [facility] [place] [address] Assigned Behavioral Health Provider 05/03/20 06/29/23 Ankita Park MD [address] [address] services clerk 06/10/20 Mio Mclean MD 420 [facility] 494 [place], [place] 13[address]55 Assigned Cancer Care Provider 05/10/20 07/25/20 Luna Simons MD 420 [facility] 480 [place], [place] 406695 Assigned Cancer Care Provider 07/26/20 06/26/21 Jose Zaragoza, BRAKE LINING FINISHER [address] [place] [address] Assigned Heart and Vascular Provider 11/08/20 02/04/22 Mio Mclean MD 420 [facility] 494 [place] [address] Assigned Cancer Care Provider 06/27/21 09/11/21 Luna Simons MD 420 [facility] 480 [place] [address] Assigned Cancer Care Provider 09/12/21 01/18/24 Nadja Hagen MD [address] [place] [address] Floor 2, [address] [place] [address] Resident Psychiatry 04/01/22 05/13/24 Batool Atkinson, PhD LP [address] [place], [place] [address]E [address] [place], [place] 347084 Psychologist Licensed Mental Health 04/01/22 Prisca Miller MD 6 [facility] 295 [place] [address] Resident Neurology 02/10/23 Jennyfer Steele APRN FINANCIAL PLANNING ADVISER [address] [place] [address], [address] [address] Nurse Practitioner Psychiatry 02/23/23 Jennyfer Steele APRN FINANCIAL PLANNING ADVISER [address] [place] [address] Assigned Behavioral Health Provider 06/30/23 Sadaf Apple NP Assigned PCP 07/21/23 09/18/23 [facility] [address] [place] [address] Assigned PCP 09/19/23 Yamel Saha PA-C [address] [place] [address] Assigned Cancer Care Provider 01/19/24 04/19/24 Luna Simons MD [address] [place] [address] Assigned Cancer Care Provider 04/20/24 documented as of this encounter
--- OUTSIDE RECORDS SUMMARY | 2024-10-15 18:39 | XMS_ITS | Encounter Summary ---
Author Organization [place] Address [address] [place] [address] Care Team Providers Care Health Informatics Instructor Name Role Phone Cyndie Eisenberg NP Primary Care Provider + Rodney Natarajan MD Unavailable [phone] Luna Simons MD Unavailable [phone] Caroline Duque RN Unavailable [phone] Martha White MD Unavailable [phone] Ankita Park MD Unavailable [phone] Luna Simons MD Unavailable [phone] Nadja Hagen MD Unavailable [phone] Batool Atkinson PhD LP Unavailable Prisca Miller MD Unavailable [phone] Jennyfer Steele APRN CORRECTIONAL CLASSIFICATION COUNSELOR Unavailable +[phone] Jennyfer Steele APRN CORRECTIONAL CLASSIFICATION COUNSELOR Unavailable +[phone] [facility] Unavailabl e Yamel Saha PA-C Unavailable [phone] Luna Simons MD Unavailable [phone] Encounter Details Date Type Department Care Team (Late st Contact Info) Description 01/05/2024 MyC Medical [facility] 909 [place] [address] Luna Simons MD [address] [address] Social History Tobacco Use Types [...] Answer Date Recorded PHQ-2 Score 0 11/09/2023 [facility] of Occupat ional Health - Occupational Stress [...] in an abandoned building, in an overnight jail, or couch-surfing.) Yes 06/22/2023 Are you worried [...] 9:15 AM CDT Ancillary Procedure [facility] [address] 2nd [place] [address] Luna Simons MD 420 [facility] 480 [place] [address] 09/15/2025 10:00 AM CDT Oncology Visit [facility] 909 [place] [phone] Luna Simons MD 420 [facility] 480 [place], [place] 319775 documented as of this encounter Visit Diagnoses Not on filedocumented in this encounter Additional Health Concerns Assessment Noted Time PHQ-9 Depression Total Score: 0 06/22/19 24 4:03 PM DIRECTOR DIVERSITY documented as of this encounter Care Teams Health Informatics Instructor Relationship Specialty Start Date End Date Cyndie Eisenberg, LAYER OUT PLATE GLASS [address] [place] [address] PCP - General 09/25/19 Rodney Natarajan MD 420 [facility] 195 [place], [place] 0[address] General Surgery 09/25/19 Luna Simons MD 420 [facility] 480 [place] [address] Hematology 09/25/19 Caroline Duque, ASHLIE Specialty Numerical Analysis Group Manager Breast Oncology 09/30/19 Martha White MD [address] [place] [address] [address] [place], [place] 926414 plastic cnc machine operator 11/01/19 Ankita Park MD [facility] [address] [phone] plastic cnc machine operator 06/10/20 Luna Simons MD 420 [facility] 480 [place] [address] Assigned Cancer Care Provider 09/12/21 01/18/24 Nadja Hagen MD [address] Floor 2, [address] [place], [place] 051084 Resident Psychiatry 04/01/22 05/13/24 Batool Atkinson, PhD LP 2450 [facility] [address] [place], [place] 7[address] Psychologist Licensed Mental Health 04/01/22 Prisca Miller MD 516 [facility] 295 [place], [place] 2258[address] Resident Neurology 02/10/23 Jennyfer Steele APRN CORRECTIONAL CLASSIFICATION COUNSELOR [address] [facility] [place] [address] [place], [place] 308134 Nurse Practitioner Psychiatry 02/23/23 eJnnyfer Steele APRN CORRECTIONAL CLASSIFICATION COUNSELOR [address] [address] [place], [place] 290364 Assigned Behavioral Health Provider 06/30/23 [facility] [address] [place] [address] Assigned PCP 09/19/23 Yamel Saha PA-C 420 [facility] 480 [place] [address] Assigned Cancer Care Provider 01/19/24 04/19/24 Luna Simons MD [address] 519[address] Assigned Cancer Care Provider 04/20/24 documented as of this encounter
--- OUTSIDE RECORDS SUMMARY | 2024-10-15 18:39 | XMS_ITS | Encounter Summary ---
Author Organization [place] Address [address] [place] [address] Care Team Providers Care Stripper Soft Plastic Name Role Phone Cyndie Eisenberg NP Primary Care Provider + Rodney Natarajan MD Unavailable [phone] Luna Simons MD Unavailable [phone] Caroline Duque RN Unavailable [phone] Martha White MD Unavailable [phone] Ankita Park MD Unavailable [phone] Ankita Park MD Unavailable [phone] Luna Simons MD Unavailable [phone] Nadja Hagen MD Unavailable [phone] Batool Atkinson PhD LP Unavailable [phone] Prisca Miller MD Unavailable [phone] Jennyfer Steele APRN BUSINESS SYSTEMS LEAD Unavailable +[phone] Jennyfer Steele APRN BUSINESS SYSTEMS LEAD Unavailable + [phone] Sadaf Apple NP Unavailable Unavailable [facility] Unavailabl e Yamel Saha PA-C Unavailable [phone] Luna Simons MD Unavailable [phone] Encounter Details Date Type Department Care Team (Late st Contact Info) Description 05/23/2022 MyC Medical Advice [facility] [place] [id number] [address] [phone] Talita Bradshaw Social History Tobacco Use Types [...] 09/15/2025 9:15 AM CDT Ancillary Procedure [facility] Breast [facility] Imaging [address] 2nd [place] [phone] Luna Simons MD [address] [place] [address] 09/15/2025 10:00 AM CDT Oncology Visit [facility] [address] [place] [phone] Luna Simons MD [address] [place] [address] 959435 documented as of this encounter Visit Diagnoses Not on filedocumented in this encounter Additional Health Concerns Infection Onset Date Last Indicated Resolved Time Rule Out COVID-19 01/24/2023 01/24/2023 01/24/2023 10:32 PM CDT Assessment Noted Time PHQ-9 Depression Total Score: 22 022 3:25 PM 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 INSTALLER documented as of this encounter Care Teams Stripper Soft Plastic Relationship Specialty Start Date End Date Cyndie Eisenberg NP [address] [place] [address] PCP - General 09/25/19 Rodney Natarajan MD 420 [facility] 195 [place], [place] 938885 MD General Surgery 09/25/19 Luna Simons MD 420 [facility] 480 [place], [place] 812295 MD Hematology 09/25/19 Caroline Duque, ASHLIE Specialty Quality Assurance Supervisor Trim Breast Oncology 09/30/19 Martha White MD 2312 S [facility] [place] [address] [place], [place] 930544 machine tool technician instructor 11/01/19 Ankita Park MD [address] [place] [phone] Assigned Behavioral Health Provider 05/03/20 06/29/23 Ankita Park MD [address] [place] [phone] machine tool technician instructor 06/10/20 Luna Simons MD [address] [place] [address] 480 [place] [address] Assigned Cancer Care Provider 09/12/21 01/18/24 Nadja Hagen MD 2312 S [facility] Floor 2, [address] [place], [place] 889374 Resident Psychiatry 04/01/22 05/13/24 [place] [address] [place] [address] [address] [place] [address] Psychologist Licensed Mental Health 04/01/22 Prisca Miller MD 516 [facility] 295 [place] [address] Resident Neurology 02/10/23 Jennyfer Steele APRN BUSINESS SYSTEMS LEAD [address] [place] [address] [address] [place] [address] Nurse Practitioner Psychiatry 02/23/23 Jennyfer Steele APRN BUSINESS SYSTEMS LEAD [address] [place] [address] [address] [place] [address] Assigned Behavioral Health Provider 06/30/23 Sadaf Apple NP Assigned PCP 07/21/23 09/18/23 [facility] [address] [place] [address] Assigned PCP 09/19/23 Yamel Saha PA-C 420 [facility] 480 [place] [address] Assigned Cancer Care Provider 01/19/24 04/19/24 Luna Simons MD 420 [facility] 480 [place], [place] 14[address]95 Assigned Cancer Care Provider 04/20/24 documented as of this encounter
--- OUTSIDE RECORDS SUMMARY | 2024-10-15 18:39 | XMS_ITS | Encounter Summary ---
Author Organization [place] Address [address] [place] [address] Care Team Providers Care Food Expeditor Name Role Phone Cyndie Eisenberg NP Primary Care Provider + Rodney Natarajan MD Unavailable [phone] Luna Simons MD Unavailable Caroline Duque RN Unavailable [phone] Martha White MD Unavailable [phone] Ankita Park MD Unavailable [phone] Ankita Park MD Unavailable [phone] Jose Zaragoza NP Unavailable Luna Simons MD Unavailable Nadja Hagen MD Unavailable [phone] Batool Atkinson PhD LP Unavailable [phone] Prisca Miller MD Unavailable [phone] Jennyfer Steele APRN SHANK STAPLER Unavailable +[phone] Jennyfer Steele APRN SHANK STAPLER Unavailable +[phone] Sadaf Apple NP Unavailable Unavailable [facility] Unavailabl e Yamel Saha PA-C Unavailable +[phone] Luna Simons MD Unavailable [phone] Encounter Details Date Type Department Care Team (Late st Contact Info) Description 12/23/2021 MyC Medical Advice [facility] Cancer [address] [phone] Talita Bradshaw Social History Tobacco Use Types [...] Description 09/15/2025 9:15 AM CDT Ancillary Procedure [facility] Breast Center Imaging [address] 2nd [place] [phone] Luna Simons MD [address] [place] [address] 414845 09/15/2025 10:00 AM CDT Oncology Visit [facility] Cancer [address] [phone] Luna Simons MD [address] [place] [address] 329185 documented as of this encounter Visit Diagnoses Not on filedocumented in this encounter Additional Health Concerns Infection Onset Date Last Indicated Resolved Time Rule Out COVID-19 01/24/2023 01/24/2023 01/24/2023 10:32 PM CDT Assessment Noted Time PHQ-9 Depression Total Score: 12 07/14/2 022 8:00 AM LACE STRIPPER documented as of this encounter Care Teams Food Expeditor Relationship Specialty Start Date End Date Cyndie Eisenberg NP [address] [place] [address] PCP - General 09/25/19 Rodney Natarajan MD 420 [facility] 195 [place], [place] 361085 General Surgery 09/25/19 Luna Simons MD 420 [facility] 480 [place] [address] MD Hematology 09/25/19 Caroline Duque, RN Specialty Slag Expander Breast Oncology 09/30/19 Martha White [address] [facility] [address] [place] [address] [address] [place], [place] 276154 dinkey mechanic 11/01/19 Ankita Park MD [address] [place] [address] Assigned Behavioral Health Provider 05/03/20 06/29/23 Ankita Park MD [address] [place] [address] dinkey mechanic 06/10/20 Jose Zaragoza, AMBULATORY TECHNOLOGIST 6405 [facility] [place] [address] Assigned Heart and Vascular Provider 11/08/20 02/04/22 Luna Simons MD 420 [facility] 480 [place] [address] Assigned Cancer Care Provider 09/12/21 01/18/24 Nadja Hagen MD 2312 S [facility] Floor 2, [address] [place], [place] [address] Resident Psychiatry 04/01/22 05/13/24 Batool Atkinson, PhD LP 2450 [facility] [address] [place], [place] [address] Psychologist Licensed Mental Health 04/01/22 Prisca Miller MD 516 [facility] 295 [place] [address] Resident Neurology 02/10/23 Jennyfer Steele APRN SHANK STAPLER 2312 S [facility] [place] [address] [place], [place] 648864 Nurse Practitioner Psychiatry 02/23/23 Jennyfer Steele APRN SHANK STAPLER 2312 S [facility] [place] [address] [place], [place] 834854 Assigned Behavioral Health Provider 06/30/23 Sadaf Apple NP Assigned PCP 07/21/23 09/18/23 [facility] [address] [place] [address] Assigned PCP 09/19/23 Yamel Saha PA-C 420 [facility] 480 [place] [address] Assigned Cancer Care Provider 01/19/24 04/19/24 Luna Simons MD 420 [facility] 480 [place] [address] Assigned Cancer Care Provider 04/20/24 documented as of this encounter
--- OUTSIDE RECORDS SUMMARY | 2024-10-15 18:39 | XMS_ITS | Clinical Summary ---
Author Organization [facility] Address [address] [place] [address] Care Team Providers Care Sign Erector Name Role Phone Cyndie Eisenberg NP Primary Care Provider + Rodney Natarajan MD Unavailable [phone] Luna Simons MD Unavailable Caroline Duque RN Unavailable [phone] Martha White MD Unavailable [phone] Ankita Park MD Unavailable [phone] Batool Atkinson PhD LP Unavailable Prisca Miller MD Unavailable Jennyfer Steele APRN REGIONAL TANKER TRUCK DRIVER Unavailable [phone] Jennyfer Steele APRN REGIONAL TANKER TRUCK DRIVER Unavailable +[phone] [facility] Unavailabl e Luna Simons MD Unavailable [phone] Allergies No known active allergies Medications multivitamin [...] (01/25/2021): Added automatically from request for surgery [id number] Resolved Problems Problem Noted Date Diagnosed Date Resolved Date Episode of altered cognition 01/30/2023 06/22/2024 Anxiety 09/26/2019 06/22/2024 IUD (intrauterine device) in place 09/26/2019 12/22/2022 Encounters Date Type Department Care Team Description 09/20/2024 Orders Only [facility] [address] [place] [address] Luna Simons MD Invasive ductal carcinoma of breast, right (H) (Primary Dx) 09/17/2024 MyC Medical Advice [facility] Mental Health & Addiction [place] [phone] [phone] Talita Bradshaw 09/13/2024 MyC Medical Advice [facility] Cancer [address] [address] Radhika Dyer, ASHLIE 09/12/2024 10:30 AM CDT Oncology Visit [facility] Cancer [address] [phone] Luna Simons MD Invasive ductal carcinoma of breast, right (H) (Primary Dx); Visit for screening mammogram; Fatigue, unspecified type; Menopausal syndrome (hot flashes) 09/12/2024 9:15 AM CDT Ancillary Procedure [facility] Breast Center Imaging [address] [address] Luna Simons MD Invasive ductal carcinoma of breast, right (H) 09/12/2024 MyC Medical Advice [facility] Cancer [address] [address] Radhika Dyer, ASHLIE 09/12/2024 Travel 09/10/2024 9:00 AM CDT Virtual Visit [facility] Mental [facility] & Addiction [place] [id number] [address] [phone] Jennyfer Steele, EQUIPMENT PROCESSER STORAGE REGIONAL TANKER TRUCK DRIVER Cognitive complaints (Primary Dx); Recurrent major depressive [...] week 06/22/2023 How often do you attend [facility] or mandaen services? More than 4 times per year 06/22/2023 Do you belong to any clubs o r organizations such as adventist groups, unions, fraternal or athletic groups, or [...] Answer Date Recorded PHQ-2 Score 0 09/10/2024 [facility] - Occupational Stress Questionnaire Answer Date [...] 160 cm (5' 3) 04/01/2024 1:36 PM BED AND BREAKFAST COOK Body Mass Index 24.06 04/01/2024 1:36 PM BED AND BREAKFAST COOK Plan of Treatment Upcoming Encounters Date Type Department Care Team (Late st Contact Info) Description 09/15/2025 9:15 AM CDT Ancillary Procedure [facility] Breast Center Imaging [place] [address] [facility] 2nd [place] [address] Luna Simons MD 420 [facility] [address] [place], [place] 561195 09/15/2025 10:00 AM CDT Oncology Visit [facility] [address] [place] [address] Luna Simons MD 420 [facility] [address] [place] [address] Health Maintenance Due Date Last [...] this topic Medical Devices Explanted Type Area Rn Social Services Device Identifier Shelf Expiration Date Model / Serial / Lot Port-09/30/2019 Implanted:Qty: 1 on 09/30/2019 by Sarabjit Jo MD Explanted:Qty: 1 on 12/31/2020 by Osmani Bullard MD at [facility] Port Left: Chest Wall BARD 08/26/2020 [id number] / / [id number] Procedures Procedure Name Priority Date/Time Associated Diagnosis Comments MA SCREENING BILATERAL W/ ASHU Routine 09/12/2024 9:31 AM CDT Invasive ductal carcinoma of breast, right (H) GLUCOSE BY METER STAT 09/04/2023 9:07 PM CDT HIV ANTIGEN ANTIBODY COMBO Add-On 06/22/2023 4:32 PM BED AND BREAKFAST COOK Screening for HIV (human immunodeficiency virus) HEPATITIS C SCREEN REFLEX TO HCV RNA QUANT AND GENOTYPE Add-On 06/22/2023 4:28 PM BED AND BREAKFAST COOK Need for hepatitis C screening test LIPID REFLEX TO DIRECT LDL PANEL Add-On 06/22/2023 4:28 PM BED AND BREAKFAST COOK Routine general medical examination at a [facility] care facility ABSTRACT PAP (HIM EXTERNAL RESULT) [...] LAB - BEAKER POCT Final Result LABORATORY [facility] Acute Care Lab [address] [facility] Lab (1st floor, no room number) [place] [address], [facility] * HIV Antigen Antibody Combo (06/22/2023 4:32 PM BED AND BREAKFAST COOK) HIV Antigen Antibody Combo Nonreactive Nonreactive 06/23/2023 7:41 PM BED AND BREAKFAST COOK [facility] LAB[facility] Comment:Negative HIV-1/-2 an tigen and antibody screening test results usually indicate the absence of HIV-1 and HIV-2 infection. However, such negative results do not rule-out acute HIV infection. If acute HIV-1 or HIV-2 infection is suspected, detection of HIV-1 or HIV-2 RNA is recommended. Blood BLOOD SPECIMEN / Unknown Venipuncture / Unknown 06/22/2023 4:32 PM BED AND BREAKFAST COOK 06/22/2023 4:32 PM BED AND BREAKFAST COOK Sadaf Apple LAB - BLOOD ORDERABLES Final Result Performing Organization Address City/[facility]/ZIP Co de Phone Number LABORATORY [facility] [place] [facility] [address] [facility], [address] [address], [facility] [phone] * Hepatitis C Screen Reflex to HCV RNA Quant and Genotype (06/22/2023 4:28 PM BED AND BREAKFAST COOK) Pathologist [facility] Hepatitis C Antibody Nonreactive Nonreactive 06/23/2023 7:14 PM BED AND BREAKFAST COOK [facility] LAB[facility] Comment:A nonreactive screen ing test [...] Unknown Venipuncture / Unknown 06/22/2023 4:28 PM BED AND BREAKFAST COOK 06/22/2023 4:30 PM BED AND BREAKFAST COOK Sadaf Apple NP LAB - BLOOD ORDERABLES Final Result Performing Organization Address [facility]/ZIP Co de Phone Number LABORATORY [facility] [place] [facility] [address] [facility], [address] [address], [facility] [phone] * (ABNORMAL) Lipid panel reflex to direct LDL Non-fasting (06/22/2023 4:28 PM BED AND BREAKFAST COOK) Cholesterol 248(H) <200 mg/dL 06/23/2023 7:12 PM BED AND BREAKFAST COOK [facility] Triglycerides 82 <150 mg/dL 06/23/2023 7:12 PM BED AND BREAKFAST COOK [facility] Direct Measure HDL 111 >=50 mg/dL 06/23/2023 7:12 PM BED AND BREAKFAST COOK [facility] LDL Cholesterol Calculated 121(H) <=100 mg/dL 06/23/2023 7:12 PM BED AND BREAKFAST COOK [facility] Non HDL Cholesterol 137(H) <130 mg/dL 06/23/2023 7:12 PM BED AND BREAKFAST COOK [facility] Blood BLOOD SPECIMEN / Unknown Venipuncture / Unknown 06/22/2023 4:28 PM BED AND BREAKFAST COOK 06/22/2023 4:30 PM BED AND BREAKFAST COOK Narrative [facility] - 06/23/2023 7:12 PM BED AND BREAKFAST COOK Cholesterol Desirable: <200 mg/dL Triglycerides Normal: Less [...] - BLOOD ORDERABLES Final Result [facility] [place] [facility] [address] [facility], Room [address] [place] [address], [facility] [phone] * Abstract HPV (HIM External Result) (10/06/2020 10:27 AM CDT) HPV Abstract See Scanned Document [facility] 10/06/2020 10:2 7 AM CDT [facility] - 10/06/2020 10:27 AM CDT Sadaf Apple NP P Abstract Quality Initiatives Pap smear done on this date: (approximately), by this group: 10/06/2020, results were Nil and HPV negative. [facility] CARE EVERYWHERE [facility] us Provider Outside LAB - HIM EXTERNAL RESULT Final Result [facility] [address] [place] [address], [facility] [phone] * Abstract PAP (HIM External Result) (10/06/2020 10:27 AM CDT) PAP-ABSTRACT See Scanned Document [facility] 10/06/2020 10:2 7 AM CDT [facility] - 10/06/2020 10:27 AM CDT Sadaf Apple NP P Abstract Quality Initiatives Pap smear done on this date: (approximately), by this group: 10/06/2020, results were Nil and HPV negative. [facility] CARE EVERYWHERE [facility] us Provider Outside LAB - HIM EXTERNAL RESULT Final Result Performing Organization Address City/[facility] Co de Phone Number [facility] [address] [place] [address], [facility] [phone] from Last 3 Months or Most Recently Relevant to Health Maintenance Insurance [facility] OUT OF STATE BCBS OUT OF STATE BCBS OUT OF STATE BCBS OUT OF STATE Advance Directives For more information, please contact: [phone] * Full Code (Latest Code Status on [...] by: Other (please benjy t) Care Teams Sign Erector Relationship Specialty Start Date End Date Cyndie Eisenberg NP [address] [place] [address] PCP - General 09/25/19 Rodney Natarajan MD [address] [facility] [address] [place] [address] General Surgery 09/25/19 Luna Simons MD [address] [facility] [address] [place] [address] Hematology 09/25/19 Caroline Duque, RN Specialty Vegetable Farmer Breast Oncology 09/30/19 Martha White MD [address] [place] [address] [address] [place], [place] [phone] rum processing operator 11/01/19 Ankita Park MD [facility]0 [facility] [address] [phone] rum processing operator 06/10/20 Batool Atkinson, PhD LP [address] [place] [address] [address] [place], [place] [phone] Psychologist Licensed Mental Health 04/01/22 Prisca Miller MD 6 [facility] 295 [place], [place] [address] Resident Neurology 02/10/23 Jennyfer Steele APRN REGIONAL TANKER TRUCK DRIVER [address] [place] [address] [address] [place], [place] 164394 Nurse Practitioner Psychiatry 02/23/23 Jennyfer Steele APRN REGIONAL TANKER TRUCK DRIVER [address] [place] [address] [address] [place], [place] 510934 Assigned Behavioral Health Provider 06/30/23 [facility] [address] [place], [place] 5580344 Assigned PCP 09/19/23 Luna Simons MD [address] [place] [address] 480 [place], [place] [phone] Assigned Cancer Care Provider 04/20/24
--- OUTSIDE RECORDS SUMMARY | 2024-10-15 18:39 | XMS_ITS | Encounter Summary ---
Author Organization [facility] Address [address] [place] [address] Care Team Providers Care Carton Gluing Machine Operator Name Role Phone Cyndie Eisenberg NP Primary Care Provider + Rodney Natarajan MD Unavailable [phone] Luna Simons MD Unavailable [phone] Caroline Duque RN Unavailable [phone] Martha White MD Unavailable [phone] Ankita Park MD Unavailable [phone] Ankita Park MD Unavailable [phone] Luna Simons MD Unavailable [phone] Nadja Hagen MD Unavailable [phone] Batool Atkinson PhD LP Unavailable [phone] Prisca Miller MD Unavailable [phone] Jennyfer Steele APRN DIRECTOR OF PATIENT FINANCIAL SERVICES Unavailable +[phone] Jennyfer Steele APRN DIRECTOR OF PATIENT FINANCIAL SERVICES Unavailable + [phone] Sadaf Apple NP Unavailable Unavailable [facility] Unavailabl e Yamel Saha PA-C Unavailable [phone] Luna Simons MD Unavailable [phone] Encounter Details Date Type Department Care Team (Late st Contact Info) Description 07/29/2022 MyC Medical Advice [facility] Cancer [address] [phone] Talita Bradshaw Social History Tobacco Use Types [...] Coronavirus/COVID-19? No / Unsure 07/11/2022 8:30 AM QUALITY PROJECT MANAGER documented as of this encounter Plan of Treatment Upcoming Encounters Date Type Department Care Team (Late st Contact Info) Description 09/15/2025 9:15 AM CDT Ancillary Procedure [facility] Breast Center Imaging [address] 2nd [place] [phone] Luna Simons MD [address] [place] [address]27[address] 09/15/2025 10:00 AM CDT Oncology Visit [facility] Cancer Clinic [address] [place] [phone] Luna Simons MD [address] [place] [address]005 documented as of this encounter Visit Diagnoses Not on filedocumented in this encounter Additional Health Concerns Infection Onset Date Last Indicated Resolved Time Rule Out COVID-19 01/24/2023 01/24/2023 01/24/2023 10:32 PM CDT Assessment Noted Time PHQ-9 Depression Total Score: 22 022 3:25 PM QUALITY PROJECT MANAGER documented as of this encounter Care Teams Carton Gluing Machine Operator Relationship Specialty Start Date End Date RafaelmemeCyndie funk, DRY KILN FEEDER [address] [place] [address] PCP - General 09/25/19 Rodney Natarajan MD 420 [facility] 195 [place], [place] 851265 General Surgery 09/25/19 Luna Simons MD 420 [facility] 480 [place], [place] 0427[address] Hematology 09/25/19 Caroline Duque, ASHLIE Specialty Safety Advisor Breast Oncology 09/30/19 Martha White MD [address] [facility] [address] [place], [place] 792634 or first assist registered nurse 11/01/19 Ankita Park MD [address] [place] [phone] Assigned Behavioral Health Provider 05/03/20 06/29/23 Ankita Park MD [address] [place] [phone] or first assist registered nurse 06/10/20 Luna Simons MD 420 [facility] 480 [place], [place] 972735 Assigned Cancer Care Provider 09/12/21 01/18/24 Nadja Hagen MD [address] [facility] Floor 2, [address] [place], [place] 6[address] Resident Psychiatry 04/01/22 05/13/24 [place] [address] [place], [place] [address] [place], [place] 6[address]64 Psychologist Licensed Mental Health 04/01/22 Prisca Miller MD 6 [facility] 295 [place], [place] 202595 Resident Neurology 02/10/23 Jennyfer Steele APRN DIRECTOR OF PATIENT FINANCIAL SERVICES [address] [place] [address] [address] [place], [place] 460204 Nurse Practitioner Psychiatry 02/23/23 Jennyfer Steele APRN DIRECTOR OF PATIENT FINANCIAL SERVICES [address] [place] [address] [address] [place], [place] 315284 Assigned Behavioral Health Provider 06/30/23 Sadaf Apple NP Assigned PCP 07/21/23 09/18/23 [facility] [address] [place] [address] Assigned PCP 09/19/23 Yamel Saha PA-C 420 [facility] 480 [place], [place] 734070 Assigned Cancer Care Provider 01/19/24 04/19/24 Luna Simons MD 420 [facility] 480 [place], [place] 347645 Assigned Cancer Care Provider 04/20/24 documented as of this encounter
--- OUTSIDE RECORDS SUMMARY | 2024-10-15 18:39 | XMS_ITS | Encounter Summary ---
Author Organization [facility] Address [address] [place] [address] Care Team Providers Care Customs Patrol Officer Name Role Phone Cyndie Eisenberg NP Primary Care Provider + Rodney Natarajan MD Unavailable [phone] Luna Simons MD Unavailable [phone] Caroline Duque RN Unavailable [phone] Martha White MD Unavailable [phone] Ankita Park MD Unavailable [phone] Ankita Park MD Unavailable [phone] Luna Simons MD Unavailable [phone] Nadja Hagen MD Unavailable [phone] Batool Atkinson PhD LP Unavailable [phone] Prisca Miller MD Unavailable [phone] Jennyfer Steele APRN COOK FROZEN DESSERT Unavailable +[phone] Jennyfer Steele APRN COOK FROZEN DESSERT Unavailable + [phone] Sadaf Apple NP Unavailable Unavailable [facility] Unavailabl e Yamel Saha PA-C Unavailable +[phone] Luna Simons MD Unavailable [phone] Encounter Details Date Type Department Care Team (Late st Contact Info) Description 08/23/2022 MyC Medical Advice [facility] Mental Health & Addiction [place] [phone] [phone] Talita [place] Social History Tobacco Use Types [...] [facility] Breast Center Imaging [address] 2nd [place] [phone] Luna Simons MD [address] [place] [address] 813235 09/15/2025 10:00 AM CDT Oncology Visit [facility] Clinic [address] [place] [phone] Luna Simons MD [address] [place] [address] 015245 documented as of this encounter Visit Diagnoses Not on filedocumented in this encounter Additional Health Concerns Infection Onset Date Last Indicated Resolved Time Rule Out COVID-19 01/24/2023 01/24/2023 01/24/2023 10:32 PM CDT Assessment Noted Time PHQ-9 Depression Total Score: 22 022 3:[address] documented as of this encounter Care Teams Customs Patrol Officer Relationship Specialty Start Date End Date Cyndie Eisenberg NP [address] [place] [address] PCP - General 09/25/19 Rodney Natarajan MD 420 [facility] 195 [place], [place] 663965 MD General Surgery 09/25/19 Luna Simons MD 420 [facility] 480 [place], [place] 966435 MD Hematology 09/25/19 Caroline Duque, ASHLIE Specialty Tassel Snipper Breast Oncology 09/30/19 Martha White MD [address] [facility] [address] [place], [place] 576774 structural analysis engineer 11/01/19 Ankita Park MD [address] [place] [phone] Assigned Behavioral Health Provider 05/03/20 06/29/23 Ankita Park MD [address] [place] [phone] structural analysis engineer 06/10/20 Luna Simons MD [address] [place] [address] 480 [place] [address] Assigned Cancer Care Provider 09/12/21 01/18/24 Nadja Hagen MD [address] [facility] Floor 2, [address] [place], [place] 412034 Resident Psychiatry 04/01/22 05/13/24 [place] [address] [place] [address] [address] [place] [address] Psychologist Licensed Mental Health 04/01/22 Prisca Miller MD 516 [facility] 295 [place] [address] Resident Neurology 02/10/23 Jennyfer Steele APRN COOK FROZEN DESSERT [address] [place] [address] [address] [place] [address] Nurse Practitioner Psychiatry 02/23/23 Jennyfer Steele APRN COOK FROZEN DESSERT [address] [place] [address] [address] [place] [address] Assigned Behavioral Health Provider 06/30/23 Sadaf Apple NP Assigned PCP 07/21/23 09/18/23 [facility] [phone] [place] [address] Assigned PCP 09/19/23 Yamel Saha PA-C 420 [facility] 480 [place] [address] Assigned Cancer Care Provider 01/19/24 04/19/24 Luna Simons MD 420 [facility] 480 [place], [place] 6[address]115 Assigned Cancer Care Provider 04/20/24 documented as of this encounter
--- OUTSIDE RECORDS SUMMARY | 2024-10-15 18:39 | XMS_ITS | Encounter Summary ---
Author Organization [place] Address [address] [place] [address] Care Team Providers Care Court Deputy Name Role Phone Cyndie Eisenberg NP Primary Care Provider + Rodney Natarajan MD Unavailable [phone] Luna Simons MD Unavailable [phone] Caroline Duque RN Unavailable [phone] Martha White MD Unavailable [phone] Ankita Park MD Unavailable +[phone] Ankita Park MD Unavailable [phone] Luna Simons MD Unavailable +[phone] Nadja Hagen MD Unavailable +[phone] Batool Atkinson PhD LP Unavailable +[phone] Prisca Miller MD Unavailable +[phone] Jennyfer Steele APRN CAREER SERVICES OFFICER Unavailable +[phone] Jennyfer Steele APRN CAREER SERVICES OFFICER Unavailable + [phone] Sadaf Apple NP Unavailable Unavailable [facility] Unavailabl e Yamel Saha PA-C Unavailable +[phone] Luna Simons MD Unavailable +[phone] Reason for Visit * Reason Onset Date Comments Medication Question 07/25/2022 Cymbalta and Adderall Encounter Details Date Type Department Care Team (Late st Contact Info) Description 07/25/2022 [facility] Medical Advice [facility] & Addiction [address] F[address] [address] Ankita Park MD [address] [address] Medication Question (Cymbalta and Adderall) [...] Coronavirus/COVID-19? No / Unsure 07/11/2022 8:30 AM CO SUPERVISOR GROUNDS AND LANDSCAPE documented as of this encounter Miscellaneous Notes * Telephone Encounter - Catia Camacho RN - 07/27/2022 2:02 PM CST Vitals per chart: Vitals taken 04/08/22 at [facility]: BP: 114/74 Pulse 74 Vitals taken 04/05/22 at [facility]: BP: 106/80 Pulse: 84 Vitals taken 07/24/21 at [facility]: BP: 112/85 Pulse: 68 Recent Labs: Lab [...] the excretion of Amphetamines. Loratadine + Trazodone: ??GLUE REEL OPERATOR Depressants may enhance the adverse/toxic effect of other GLUE REEL OPERATOR Depressants Cymbalta + Adderall: Amphetamines may enhance the serotonergic effect of Serotonergic Agents Cymbalta + Trazodone: TraZODone may enhance the serotonergic effect of Serotonin/Norepinephrine Reuptake Inhibitors.?? Topamax + Trazodone: GLUE REEL OPERATOR Depressants may enhance the adverse/toxic effect of other GLUE REEL OPERATOR Depressants. Topamax + loratadine: Anticholinergic Agents may enhance the adverse/toxic effect of Topiramate.?? Trazodone + Adderall: Amphetamines may enhance the serotonergic effect of Serotonergic Agents SUPERVISOR GROUNDS AND LANDSCAPE * Telephone Encounter - Catia Camacho RN [...] 10mg mid July in prep for that SUPERVISOR GROUNDS AND LANDSCAPE * Telephone Encounter - Frances Linn RN [...] - relayed the above to patient via [email or web address] SUPERVISOR GROUNDS AND LANDSCAPE documented in this encounter Plan of Treatment Upcoming Encounters Date Type Department Care Team (Late st Contact Info) Description 09/15/2025 9:15 AM CDT Ancillary Procedure [facility] Breast Center Imaging [address] 2nd [place] [phone] Luna Simons MD [address] [place] [address] 308435 09/15/2025 10:00 AM CDT Oncology Visit [facility] [address] [place] [phone] Luna Simons MD [address] [place] [address] 157235 documented as of this encounter Visit Diagnoses Not on filedocumented in this encounter Additional Health Concerns Infection Onset Date Last Indicated Resolved Time Rule Out COVID-19 01/24/2023 01/24/2023 01/24/2023 10:32 PM CDT Assessment Noted Time PHQ-9 Depression Total Score: 22 022 3:25 PM CO SUPERVISOR GROUNDS AND LANDSCAPE documented as of this encounter Care Teams Court Deputy Relationship Specialty Start Date End Date Cyndie Eisenberg NP [address] [place] [address] PCP - General 09/25/19 Rodney Natarajan MD 420 [facility] 195 [place] [address] General Surgery 09/25/19 Luna Simons MD 420 [facility] 480 [place] [address] Hematology 09/25/19 Caroline Duque, ASHLIE Specialty Viscera Washer Breast Oncology 09/30/19 Martha White MD [address] [place] [address] [place], [place] 364614 management recruiter 11/01/19 Ankita Park MD [address] [place] [address] Assigned Behavioral Health Provider 05/03/20 06/29/23 Ankita Park MD [address] [place] [phone] management recruiter 06/10/20 Luna Simons MD 420 [facility] 480 [place], [place] 304435 Assigned Cancer Care Provider 09/12/21 01/18/24 Nadja Hagen MD [address] 2, [address] [place], [place] 6[address]04 Resident Psychiatry 04/01/22 05/13/24 Batool Atkinson, PhD LP 2450 [facility] [address] [place], [place] 733704 Psychologist Licensed Mental Health 04/01/22 Prisca Miller MD 516 [facility] 295 [place], [place] 875085 Resident Neurology 02/10/23 Jennyfer Steele APRN CAREER SERVICES OFFICER 2312 [address] [facility] [address]275 [place] [address] Nurse Practitioner Psychiatry 02/23/23 Jennyfer Steele APRN CAREER SERVICES OFFICER 2312 [address] [facility] [address]275 [place], [place] 0[address]754 Assigned Behavioral Health Provider 06/30/23 Sadaf Apple NP Assigned PCP 07/21/23 09/18/23 [facility] [id number] [place] [address] Assigned PCP 09/19/23 Yamel Saha PA-C 420 [facility] 480 [place], [place] [id number] Assigned Cancer Care Provider 01/19/24 04/19/24 Luna Simons MD 420 [facility] 480 [place] [address] Assigned Cancer Care Provider 04/20/24 documented as of this encounter
--- OUTSIDE RECORDS SUMMARY | 2024-10-15 18:39 | XMS_ITS | Encounter Summary ---
Author Organization [place] Address [address] [place] [address] Care Team Providers Care Patient Registration Rep Name Role Phone Cyndie Eisenberg NP Primary Care Provider + Rodney Natarajan MD Unavailable [phone] Luna Simons MD Unavailable [phone] Caroline Duque RN Unavailable [phone] Martha White MD Unavailable Pedrito Ramirez MD Unavailable [phone] Rodney Natarajan MD Unavailable [phone] Ankita Park MD Unavailable [phone] Ankita Park MD Unavailable [phone] Luna Simons MD Unavailable Jose Zaragoza NP Unavailable Mio Mclean MD Unavailable [phone] Luna Simons MD Unavailable Nadja Hagen MD Unavailable [phone] Batool Atkinson PhD LP Unavailable [phone] Prisca Miller MD Unavailable [phone] Jennyfer Steele APRN VARNISH SUPERVISOR Unavailable +- Jennyfer Steele INSECTICIDE SPRAYER VARNISH SUPERVISOR Unavailable + Sadaf Apple NP Unavailable Unavailable Clinic - [facility] Unavailabl e Yamel Saha PA-C Unavailable Luna Simons MD Unavailable [phone] Encounter Details Date Type Department Care Team (Late Contact Info) Description 08/18/2020 MyC Medical Advice [facility] Cancer [address] [address] Talita Bradshaw Social History Tobacco [...] Procedure [facility] Breast Center Imaging [address] 2nd [place] [address] Luna Simons MD [address] [place] [address] 09/15/2025 10:00 AM CDT Oncology Visit [facility] Cancer [address] [address] Luna Simons MD [address] [place] [address] documented as of this encounter Visit Diagnoses Not on filedocumented in this encounter Additional Health Concerns Infection Onset Date Last Indicated Resolved Time Rule Out COVID-19 01/24/2023 01/24/2023 01/24/2023 10:32 PM CDT documented as of this encounter Care Teams Patient Registration Rep Relationship Specialty Start Date End Date Cyndie Eisenberg NP [address] [place] [address] PCP - General 09/25/19 Rodney Natarajan MD [address] [place] [facility] 195 [place], [place] 192095 General Surgery 09/25/19 Luna Simons MD [address] [facility] 480 [place], [place] 9269[address] Hematology 09/25/19 Caroline Duque, RN Specialty Refractory Worker Breast Oncology 09/30/19 Martha White MD [address] [place] [address] [address] [place], [place] 2748[address] truck spotter 11/01/19 Pedrito Ramirez MD 6405 [facility] [address] [place] [address] Assigned Heart and Vascular Provider 03/20/20 11/07/20 Rodney Natarajan MD [address] [place] [address] [facility] 195 [place], [place] 643635 Assigned Surgical Provider 03/20/20 08/07/21 Ankita Park MD [facility] [place] [phone] Assigned Behavioral Health Provider 05/03/20 06/29/23 Ankita Park MD 2450 [facility] [place] [phone] truck spotter 06/10/20 Luna Simons MD 420 [facility] 480 [place], [place] 446085 Assigned Cancer Care Provider 07/26/20 06/26/21 Jose Zaragoza NP 6405 [facility] [place] [address] Assigned Heart and Vascular Provider 11/08/20 02/04/22 Mio Mclean MD 420 [facility] 494 [place], [place] 959745 Assigned Cancer Care Provider 06/27/21 09/11/21 Luna Simons MD 420 [facility] 480 [place] [address] Assigned Cancer Care Provider 09/12/21 01/18/24 Nadja Hagen MD [address] Floor 2, [address] [place], [place] [address] Resident Psychiatry 04/01/22 05/13/24 Batool Atkinson, PhD LP [address] [place] [address] F282 [place], [place] 197[address] Psychologist Licensed Mental Health 04/01/22 Prisca Miller MD 516 [facility] 295 [place] [address] Resident Neurology 02/10/23 Jennyfer Steele APRN VARNISH SUPERVISOR [address] [place] [address] [address] [place] [address] Nurse Practitioner Psychiatry 02/23/23 Jennyfer Steele APRN VARNISH SUPERVISOR [address] [place] [address] [address] [place] [address] Assigned Behavioral Health Provider 06/30/23 Sadaf Apple NP Assigned PCP 07/21/23 09/18/23 [facility] [address] [place] [address] Assigned PCP 09/19/23 Yamel Saha PA-C 420 [facility] 480 [place], [place] 9[address]75 Assigned Cancer Care Provider 01/19/24 04/19/24 Luna Simons MD 420 [facility] 480 [place], [place] 4[address]85 Assigned Cancer Care Provider 04/20/24 documented as of this encounter
--- OUTSIDE RECORDS SUMMARY | 2024-10-15 18:39 | XMS_ITS | Encounter Summary ---
Author Organization [place] Address [address] [place] [address] Care Team Providers Care Sand Miller Name Role Phone Cyndie Eisenberg NP Primary Care Provider + Rodney Natarajan MD Unavailable [phone] Luna Simons MD Unavailable [phone] Caroline Duque RN Unavailable Martha White MD Unavailable Pedrito Ramirez MD Unavailable [phone] Rodney Natarajan MD Unavailable [phone] Ankita Park MD Unavailable [phone] Ankita Park MD Unavailable [phone] Mio Mclean MD Unavailable [phone] Luna Simons MD Unavailable [phone] Jose Zaragoza NP Unavailable Mio Mclean MD Unavailable [phone] Luna Simons MD Unavailable Nadja Hagen MD Unavailable Batool Atkinson PhD LP Unavailable [phone] Prisca Miller MD Unavailable [phone] Jennyfer Steele APRN MOLDED GOODS SPOT PICKER Unavailable + Jennyfer Steele ATG JAVA DEVELOPER MOLDED GOODS SPOT PICKER Unavailable + Sadaf Apple NP Unavailable Unavailable Clinic - [facility] Unavailabl e Yamel Saha PA-C Unavailable [phone] Luna Simons MD Unavailable Encounter Details Date Type Department Care Team (Late st Contact Info) Description 07/07/2020 MyC Medical Advice [facility] Cancer [facility] 909 [place] [address] Luna Simons MD [address] [place] [address] Social History Tobacco Use Types Packs/Day [...] COVID-19? No / Unsure 07/07/2020 1:06 PM JOINER APPRENTICE documented as of this encounter Plan of Treatment Upcoming Encounters Date Type Department Care Team (Late st Contact Info) Description 09/15/2025 9:15 AM CDT Ancillary Procedure [facility] Breast Center Imaging [place] 909 [facility] 2nd [place] [address] Luna Simons MD [address] [place] [address] 09/15/2025 10:00 AM CDT Oncology Visit [facility] 909 [place] [phone] Luna Simons MD [address] 479285 documented as of this encounter Visit Diagnoses Not on filedocumented in this encounter Additional Health Concerns Infection Onset Date Last Indicated Resolved Time Rule Out COVID-19 01/24/2023 01/24/2023 01/24/2023 10:32 PM CDT documented as of this encounter Care Teams Sand Miller Relationship Specialty Start Date End Date Cyndie Eisenberg NP [address] [place] [address] PCP - General 09/25/19 Rodney Natarajan MD [address] 071085 General Surgery 09/25/19 Luna Simons MD [address] 947095 Hematology 09/25/19 Caroline Duque, RN Specialty Patch Driller Breast Oncology 09/30/19 Martha White MD [address] [place] [address] [address] [place] [address] correspondence renew clerk 11/01/19 Pedrito Ramirez MD 6405 [facility] [address] [place], [place] 081925 Assigned Heart and Vascular Provider 03/20/20 11/07/20 Rodney Natarajan MD [address] 936845 Assigned Surgical Provider 03/20/20 08/07/21 Ankita Park MD [address] [place] [phone] Assigned Behavioral Health Provider 05/03/20 06/29/23 Ankita Park MD [address] [place] [address] correspondence renew clerk 06/10/20 Mio Mclean MD [address] 231455 Assigned Cancer Care Provider 05/10/20 07/25/20 Luna Simons MD [address] [place] [address] Assigned Cancer Care Provider 07/26/20 06/26/21 Jose Zaragoza NP 6405 [place] [address] Assigned Heart and Vascular Provider 11/08/20 02/04/22 Mio Mclean MD [address] [address] Assigned Cancer Care Provider 06/27/21 09/11/21 Luna Simons MD [address] [address] Assigned Cancer Care Provider 09/12/21 01/18/24 Nadja Hagen MD [address] [place] [address] Floor 2, [address] [place] [address] Resident Psychiatry 04/01/22 05/13/24 Batool Atkinson, PhD LP 2450 [facility] [address] [place] [address] Psychologist Licensed Mental Health 04/01/22 Prisca Miller MD 6 [facility] 295 [place], [place] [address] Resident Neurology 02/10/23 Jennyfer Steele APRN MOLDED GOODS SPOT PICKER [address] [place] [address], [address] [place] [address] Nurse Practitioner Psychiatry 02/23/23 Jennyfer Steele APRN MOLDED GOODS SPOT PICKER [address] [place] [address] [address]275 [place] [address] Assigned Behavioral Health Provider 06/30/23 Sadaf Apple NP Assigned PCP 07/21/23 09/18/23 [facility] [address] [place] [address] Assigned PCP 09/19/23 Yamel Saha PA-C 420 [facility] 480 [place], [place] 10[address]65 Assigned Cancer Care Provider 01/19/24 04/19/24 Luna Simons MD 420 [facility] 480 [place], [place] 330605 Assigned Cancer Care Provider 04/20/24 documented as of this encounter
--- OUTSIDE RECORDS SUMMARY | 2024-10-15 18:39 | XMS_ITS | Encounter Summary ---
Author Organization [place] Address [address] [place] [address] Care Team Providers Care Hand Braille Transcriber Name Role Phone Cyndie Eisenberg NP Primary Care Provider + Rodney Natarajan MD Unavailable [phone] Luna Simons MD Unavailable [phone] Caroline Duque RN Unavailable [phone] Martha White MD Unavailable [phone] Ankita Park MD Unavailable [phone] Ankita Park MD Unavailable [phone] Luna Simons MD Unavailable [phone] Nadja Hagen MD Unavailable [phone] Batool Atkinson PhD LP Unavailable [phone] Prisca Miller MD Unavailable [phone] Jennyfer Steele APRN SHEET ROCK TAPER Unavailable +[phone] Jennyfer Steele APRN SHEET ROCK TAPER Unavailable + [phone] Sadaf Apple NP Unavailable Unavailable [facility] Unavailabl e Yamel Saha PA-C Unavailable [phone] Luna Simons MD Unavailable [phone] Encounter Details Date Type Department Care Team (Late st Contact Info) Description 05/18/2022 MyC Medical Advice [facility] Cancer [address] [phone] Justyna Concepcion, RN Social History Tobacco Use [...] Description 09/15/2025 9:15 AM CDT Ancillary Procedure [facility] Breast Center Imaging [address] 2nd [place] [phone] Luna Simons MD [address] [place] [address] 09/15/2025 10:00 AM CDT Oncology Visit [facility] [address] [phone] Luna Simons MD [address] [place] [address] 455615 documented as of this encounter Visit Diagnoses Not on filedocumented in this encounter Additional Health Concerns Infection Onset Date Last Indicated Resolved Time Rule Out COVID-19 01/24/2023 01/24/2023 01/24/2023 10:32 PM CDT Assessment Noted Time PHQ-9 Depression Total Score: 22 022 3:25 PM WINDOWS SECURITY ANALYST documented as of this encounter Care Teams Hand Braille Transcriber Relationship Specialty Start Date End Date Cyndie Eisenberg NP [address] [place] [address] PCP - General 09/25/19 Rodney Natarajan MD [address] [place] [facility] 195 [place], [place] [address] General Surgery 09/25/19 Luna Simons MD 420 [facility] 480 [place], [place] 878245 MD Hematology 09/25/19 Caroline Duque, RN Specialty Psychologist Clinical Breast Oncology 09/30/19 Martha White MD 2312 [address] [facility] [place] [place] [address] nuclear medicine chief technologist 11/01/19 Ankita Park MD [address] [place] [phone] Assigned Behavioral Health Provider 05/03/20 06/29/23 Ankita Park MD [address] [place] [phone] nuclear medicine chief technologist 06/10/20 Luna Simons MD 420 [facility] 480 [place], [place] 6[address] Assigned Cancer Care Provider 09/12/21 01/18/24 Nadja Hagen MD 2312 S [facility] Floor 2, [address] [place], [place] 04[address] Resident Psychiatry 04/01/22 05/13/24 Batool Atkinson, PhD LP [address] [place] [address] F282 [place] [address] Psychologist Licensed Mental Health 04/01/22 Prisca Miller MD 516 [facility] 295 [place] [address] Resident Neurology 02/10/23 Jennyfer Steele APRN SHEET ROCK TAPER [address] [place], [place] [address]75 [place] [address] Nurse Practitioner Psychiatry 02/23/23 Jennyfer Steele APRN SHEET ROCK TAPER [address] [place], [place] [address]75 [place] [address] Assigned Behavioral Health Provider 06/30/23 Sadaf Apple NP Assigned PCP 07/21/23 09/18/23 [facility] [address] [place] [address] Assigned PCP 09/19/23 Yamel Saha PA-C 420 [facility] 480 [place], [place] 9[address] Assigned Cancer Care Provider 01/19/24 04/19/24 Luna Simons MD 420 [facility] 480 [place], [place] 9[address] Assigned Cancer Care Provider 04/20/24 documented as of this encounter
--- OUTSIDE RECORDS SUMMARY | 2024-10-15 18:39 | XMS_ITS | Encounter Summary ---
Author Organization [place] Address [address] [place] [address] Care Team Providers Care Brush Clearer Surveying Name Role Phone Cyndie Eisenberg NP Primary Care Provider + Rodney Natarajan MD Unavailable [phone] Luna Simons MD Unavailable [phone] Caroline Duque RN Unavailable [phone] Martha White MD Unavailable Pedrito Ramirez MD Unavailable [phone] Rodney Natarajan MD Unavailable [phone] Ankita Park MD Unavailable [phone] Ankita Park MD Unavailable [phone] Luna Simons MD Unavailable [phone] Jose Zaragoza NP Unavailable Mio Mclean MD Unavailable [phone] Luna Simons MD Unavailable [phone] Nadja Hagen MD Unavailable [phone] Batool Atkinson PhD LP Unavailable [phone] Prisca Miller MD Unavailable Jennyfer Steele APRN FUR COAT SEWER Unavailable +- Jennyfer Steele CLINICAL STUDIES SPECIALIST FUR COAT SEWER Unavailable + Sadaf Apple NP Unavailable Unavailable Clinic - [facility] Unavailabl e Yamel Saha PA-C Unavailable Luna Simons MD Unavailable Encounter Details Date Type Department Care Team (Late Contact Info) Description 08/19/2020 MyC Medical Advice [facility] Cancer [address] [address] Talita Bradshaw Social History Tobacco [...] [facility] Breast Center Imaging [address] 2nd [place] [address] Luna Simons MD [address] [place] [address] 09/15/2025 10:00 AM CDT Oncology Visit [facility] Cancer [address] [address] Luna Simons MD [address] [place] [address] documented as of this encounter Visit Diagnoses Not on filedocumented in this encounter Additional Health Concerns Infection Onset Date Last Indicated Resolved Time Rule Out COVID-19 01/24/2023 01/24/2023 01/24/2023 10:32 PM CDT documented as of this encounter Care Teams Brush Clearer Surveying Relationship Specialty Start Date End Date Cyndie Eisenberg NP [address] [place] [address] PCP - General 09/25/19 Rodney Natarajan MD [address] [facility] 195 [place], [place] 268[address] General Surgery 09/25/19 Luna Simons MD [address] [place] [address] [facility] 480 [place], [place] [address] Hematology 09/25/19 Caroline Duque, RN Specialty Solid Plasterer Breast Oncology 09/30/19 Martha White MD [address] [place] [address] [address] [place], [place] 507864 avian keeper 11/01/19 Pedrito Ramirez MD 6405 [facility] [address] [place] [address] Assigned Heart and Vascular Provider 03/20/20 11/07/20 Rodney Natarajan MD [address] [place] [address] [facility] 195 [place], [place] 6[address] Assigned Surgical Provider 03/20/20 08/07/21 Ankita Park MD [facility] [place] [phone] Assigned Behavioral Health Provider 05/03/20 06/29/23 Ankita Park MD 2450 [facility] [place] [phone] avian keeper 06/10/20 Luna Simons MD 420 [facility] 480 [place], [place] 7[address] Assigned Cancer Care Provider 07/26/20 06/26/21 Jose Zaragoza NP 6405 [facility] [address] Assigned Heart and Vascular Provider 11/08/20 02/04/22 Mio Mclean MD 420 [facility] 494 [place], [place] 123385 Assigned Cancer Care Provider 06/27/21 09/11/21 Luna Simons MD 420 [facility] 480 [place] [address] Assigned Cancer Care Provider 09/12/21 01/18/24 Nadja Hagen MD [address] Floor 2, [address] [place], [place] 3[address] Resident Psychiatry 04/01/22 05/13/24 Batool Atkinson, PhD LP [address] [place] [address] [address] [place], [place] [address] Psychologist Licensed Mental Health 04/01/22 Prisca Miller MD 516 [facility] 295 [place] [address] Resident Neurology 02/10/23 Jennyfer Steele APRN FUR COAT SEWER [address] [place] [address] [address]275 [place] [address] Nurse Practitioner Psychiatry 02/23/23 Jennyfer Steele APRN FUR COAT SEWER [address] [place] [address] [address]275 [place] [address] Assigned Behavioral Health Provider 06/30/23 Sadaf Apple NP Assigned PCP 07/21/23 09/18/23 [facility] [address] [place] [address] Assigned PCP 09/19/23 Yamel Saha PA-C 420 [facility] 480 [place], [place] 226635 Assigned Cancer Care Provider 01/19/24 04/19/24 Luna Simons MD 420 [facility] 480 [place], [place] 528535 Assigned Cancer Care Provider 04/20/24 documented as of this encounter
--- OUTSIDE RECORDS SUMMARY | 2024-10-15 18:39 | XMS_ITS | Encounter Summary ---
Author Organization [place] Address [address] [place] [address] Care Team Providers Care Lead Carpenter Name Role Phone Cyndie Eisenberg NP Primary Care Provider + Rodney Natarajan MD Unavailable [phone] Luna Simons MD Unavailable [phone] Caroline Duque RN Unavailable [phone] Martha White MD Unavailable [phone] Ankita Park MD Unavailable [phone] Ankita Park MD Unavailable [phone] Jose Zaragoza NP Unavailable [phone] Luna Simons MD Unavailable Nadja Hagen MD Unavailable [phone] Batool Atkinson PhD LP Unavailable [phone] Prisca Miller MD Unavailable [phone] Jennyfer Steele APRN PLATER HELPER Unavailable +[phone] Jennyfer Steele APRN PLATER HELPER Unavailable +[phone] Sadaf Apple NP Unavailable Unavailable [facility] Unavailabl e Yamel Saha PA-C Unavailable +[phone] Luna Simons MD Unavailable Encounter Details Date Type Department Care Team (Late st Contact Info) Description 12/29/2021 MyC Medical Advice [facility] Cancer [address] [phone] Caroline Duque, RN Social History Tobacco Use [...] Ancillary Procedure [facility] Imaging [address] 2nd [place] [phone] Luna Simons MD [address] [place] [address] 851605 09/15/2025 10:00 AM CDT Oncology Visit [facility] Cancer [address] [phone] Luna Simons MD [address] [place] [address] documented as of this encounter Visit Diagnoses Not on filedocumented in this encounter Additional Health Concerns Infection Onset Date Last Indicated Resolved Time Rule Out COVID-19 01/24/2023 01/24/2023 01/24/2023 10:32 PM CDT Assessment Noted Time PHQ-9 Depression Total Score: 12 02/2 022 8:00 AM TIE IN MACHINE OPERATOR documented as of this encounter Care Teams Lead Carpenter Relationship Specialty Start Date End Date Cyndie Eisenberg, AMANDA [address] [place] [address] PCP - General 09/25/19 Rodney Natarajan MD 420 [facility] 195 [place] [address] General Surgery 09/25/19 Luna Simons MD 420 [facility] 480 [place], [place] 534505 MD Hematology 09/25/19 Caroline Duque, ASHLIE Specialty Daytime Babysitter Breast Oncology 09/30/19 Martha White MD [facility] [place] [address] [address] [place], [place] [phone] agricultural service technician 11/01/19 Ankita Park MD [address] [place] [address] Assigned Behavioral Health Provider 05/03/20 06/29/23 Ankita Park MD [address] [place] [address] agricultural service technician 06/10/20 Jose Zaragoza, PANEL GLUER [address] [facility] [place] 68[address] Assigned Heart and Vascular Provider 11/08/20 02/04/22 Luna Simons MD 420 [facility] 480 [place], [place] 038155 Assigned Cancer Care Provider 09/12/21 01/18/24 Nadja Hagen MD [address] [facility] Floor 2, [address] [place], [place] 0[address] Resident Psychiatry 04/01/22 05/13/24 Batool Atkinson, PhD LP [address] [place] [address] [address] [place], [place] 665874 Psychologist Licensed Mental Health 04/01/22 Prisca Miller MD 516 [facility] 295 [place] [address] Resident Neurology 02/10/23 Jennyfer Steele APRN PLATER HELPER 23[address] [facility] [place] [address] [place], [place] 5923[address] Nurse Practitioner Psychiatry 02/23/23 Jennyfer Steele APRN PLATER HELPER [address], [place] [address] [place] [address] Assigned Behavioral Health Provider 06/30/23 Sadaf Apple NP Assigned PCP 07/21/23 09/18/[address] [address] Assigned PCP 09/19/23 Yamel Saha PA-C 420 [facility] 480 [place] [address] Assigned Cancer Care Provider 01/19/24 04/19/24 Luna iSmons MD [address] [facility] [address] [place] [address] Assigned Cancer Care Provider 04/20/24 documented as of this encounter
--- OUTSIDE RECORDS SUMMARY | 2024-10-15 18:39 | XMS_ITS ---
Author Organization [place] Address [address] [place] [address] Care Team Providers Care E Learning Coordinator Name Role Phone Cyndie Eisenberg NP Primary Care Provider + Rodney Natarajan MD Unavailable [phone] Luna Simons MD Unavailable [phone] Caroline Duque RN Unavailable [phone] Martha White MD Unavailable Ankita Park MD Unavailable [phone] Batool Atkinson PhD LP Unavailable Prisca Miller MD Unavailable Jennyfer Steele APRN PUBLIC EMPLOYMENT MEDIATOR Unavailable [phone] Jennyfer Steele APRN PUBLIC EMPLOYMENT MEDIATOR Unavailable +[phone] [facility] Unavailabl e Luna Simons MD Unavailable Active Problems Problem Noted Date Diagnosed Date Major depression, recurrent 04/30/2024 Pyelonephritis, acute 01/30/2023 Hypoglycemia 01/30/2023 Tachycardia 10/29/2019 H/O LEEP 09/20/2019 Overview (09/26/2019): 2009 Invasive ductal carcinoma of breast, right 09/19 Overview (01/25/2021): Added automatically from request for surgery [id number] Current Treatment and Therapy Plans No current [...] Plan and Summary - Breast Provided by [facility] [place] General Information Patient Name Anjelica Matthew Patient 1980 Patient phone [phone] (home) Email [email or web address] Care Team Primary Care Provider Cyndie Eisenberg Surgeon Rodney Natarajan MD, Chava Hein MD ([facility]) Radiation Oncologist Mio Mclean MD Medical Oncologist Luna Simons Cancer Diagnosis Information Diagnosis Invasive ductal carcinoma of breast, right (H) Diagnosis Date 09/13/2019 Staging Information T2N0, stage 2A right breast cancer ER + [place] + Her2 + Estrogen Positive Progesterone Positive [...] to maintain optimal health. Possible late and/or senior care effects that someone with this type of [...] using tobacco, recommend contacting Quit Partner at www.quitpartLiving Lens Enterprise.com and considering the use of nicotine replacement and/or medications like bupropion or Chantix. Weight management (loss/gain): Recommend a body mass index (BMI) of 18.5-24.9. If not within this range, recommend seeing a accountant assistant to discuss way to get into this range with diet changes. Resources you may be interested in: [place] [employer] Society www.cancer.org [facility] Cancer Survivorship https://survivorship.[facility] Thrive Cancer Survivorship class series https://survivorship.[facility]/ysrefc-jkburu-yrcojawzcqfv-class-series [place] [employer] of Clinical Oncology www.asco.org/practice-guidelines/resources-patients National Cancer [place] www.cancer.gov Liv[employer] www.livestrong.org [facility] www.mhealth.org/care/overarching-care/lisqfb-yczp-wuerj/support-services www.cancer.net [place] for Cancer Research www.aicr.org This Survivorship Care [...]
--- OUTSIDE RECORDS SUMMARY | 2024-10-15 18:40 | XMS_ITS | Encounter Summary ---
Author Organization [place] Address [address] [place] [address] Care Team Providers Care Filler Block Inserter Remover Name Role Phone Cyndie Eisenberg NP Primary Care Provider + Rodney Natarajan MD Unavailable [phone] Luna Simons MD Unavailable [phone] Caroline Duque RN Unavailable [phone] Martha White MD Unavailable [phone] Ankita Park MD Unavailable [phone] Ankita Park MD Unavailable [phone] Luna Simons MD Unavailable [phone] Nadja Hagen MD Unavailable [phone] Batool Atkinson PhD LP Unavailable [phone] Prisca Miller MD Unavailable [phone] Jennyfer Steele APRN HOUSING INSPECTORS Unavailable +[phone] Jennyfer Steele APRN HOUSING INSPECTORS Unavailable + [phone] Sadaf Apple NP Unavailable Unavailable [facility] Unavailabl e Yamel Saha PA-C Unavailable +[phone] Luna Simons MD Unavailable [phone] Reason for Visit * Reason Onset Date Comments Refill Request 11/24/2022 ADDERALL XR 10 M G 24 hr capsule Encounter Details Date Type Department Care Team (Late st Contact Info) Description 11/24/2022 MyC Refill [facility] [address] [address] Ankita Park MD [address] [address] Refill Request (ADDERALL XR 10 [...] Ancillary Procedure [facility] Imaging [place] [address] [place] [phone] Luna Simons MD 420 [facility] 480 [place], [place] [address] 09/15/2025 10:00 AM CDT Oncology Visit [facility] 909 [place] [address] Luna Simons MD 420 [facility] 480 [place] [address] documented as of this encounter Visit Diagnoses Diagnosis Cognitive complaints Other signs and symptoms involving cognition documented in this encounter Additional Health Concerns Infection Onset Date Last Indicated Resolved Time Rule Out COVID-19 01/24/2023 01/24/2023 01/24/2023 10:32 PM CDT Assessment Noted Time PHQ-9 Depression Total Score: 22 022 3:25 PM EMBEDDED DEVELOPER documented as of this encounter Care Teams Filler Block Inserter Remover Relationship Specialty Start Date End Date Cyndie Eisenberg, ACTIVITIES THERAPIST [address] [place] [address] PCP - General 09/25/19 Rodney Natarajan MD [address] [place] [address] 195 [place] [address] General Surgery 09/25/19 Luna Simons MD [address] [place] [address] 480 [place] [address] Hematology 09/25/19 Caroline Duque, RN Specialty Safekeeping Clerk Breast Oncology 09/30/19 Martha White MD [address] [facility] [address] [facility] [address] [place], [place] [address] body hanger 11/01/19 Ankita Park MD [facility] [address] [phone] Assigned Behavioral Health Provider 05/03/20 06/29/23 Ankita Park MD [address] [place] [phone] body hanger 06/10/20 Luna Simons MD [address] [place] [address] 480 [place], [place] [phone] Assigned Cancer Care Provider 09/12/21 01/18/24 Nadja Hagen MD [facility] [address] Floor 2, [address] [place] [address] Resident Psychiatry 04/01/22 05/13/24 Batool Atkinson, PhD LP [address] [place], [place] 387[address] [place] [address] Psychologist Licensed Mental Health 04/01/22 Prisca Miller MD 516 [facility] 295 [place], [place] [address] Resident Neurology 02/10/23 Jennyfer Steele APRN HOUSING INSPECTORS 2312 S [facility] [address] [place], [place] [address] Nurse Practitioner Psychiatry 02/23/23 Jennyfer Steele APRN HOUSING INSPECTORS 2312 S [facility]75 [place], [place] [address]924 Assigned Behavioral Health Provider 06/30/23 Sadaf Apple NP Assigned PCP 07/21/23 09/18/23 [facility] [address] [place] [address] Assigned PCP 09/19/23 Yamel Saha PA-C [address] [place] [address] 819095 Assigned Cancer Care Provider 01/19/24 04/19/24 Luna Simons MD [address] [place] [address] Assigned Cancer Care Provider 04/20/24 documented as of this encounter
--- OUTSIDE RECORDS SUMMARY | 2024-10-15 18:40 | XMS_ITS | Encounter Summary ---
Author Organization [facility] Address [address] [place] [address] Care Team Providers Care Flue Lining Dipper Name Role Phone Cyndie Eisenberg NP Primary Care Provider + Rodney Natarajan MD Unavailable [phone] Luna Simons MD Unavailable [phone] Caroline Duque RN Unavailable [phone] Martha White MD Unavailable [phone] Ankita Park MD Unavailable [phone] Ankita Park MD Unavailable [phone] Luna Simons MD Unavailable [phone] Nadja Hagen MD Unavailable [phone] Batool Atkinson PhD LP Unavailable [phone] Prisca Miller MD Unavailable [phone] Jennyfer Steele APRN AXMINSTER RUG SETTER Unavailable +[phone] Jennyfer Steele APRN AXMINSTER RUG SETTER Unavailable + [phone] Sadaf Apple NP Unavailable Unavailable [facility] Unavailabl e Yamel Saha PA-C Unavailable [phone] Luna Simons MD Unavailable [phone] Encounter Details Date Type Department Care Team (Late st Contact Info) Description 03/23/2023 MyC Medical Advice [facility] Cancer [address] [address] Luna Simons MD [address] [place] [address] Recurrent major depressive disorder, in full remission [...] 09/15/2025 9:15 AM CDT Ancillary Procedure [facility] Breast Center Imaging [address] 2nd [place] [address] Luna Simons MD [address] [place] [address] 487265 09/15/2025 10:00 AM CDT Oncology Visit [facility] [address] [place] [phone] Luna Simons MD [address] [place] [address] [phone] documented as of this encounter Visit Diagnoses Diagnosis Recurrent major depressive disorder, in full remission documented in this encounter Additional Health Concerns Assessment Noted Time PHQ-9 Depression Total Score: 22 022 3:25 PM JAVA DESIGNER documented as of this encounter Care Teams Flue Lining Dipper Relationship Specialty Start Date End Date Cyndie Eisenberg, IT SECURITY ARCHITECT [address] [place] [address] PCP - General 09/25/19 Rodney Natarajan MD 420 [facility] 195 [place] [address] General Surgery 09/25/19 Luna Simons MD 420 [facility] 480 [place] [address] MD Hematology 09/25/19 Caroline Duque, ASHLIE Specialty On Call Breast Oncology 09/30/19 Martha White MD [address] [facility] [address] [place] [address] [place], [place] 4739[address] comptroller 11/01/19 Ankita Park MD [address] [place] [address] Assigned Behavioral Health Provider 05/03/20 06/29/23 Ankita Park MD [address] [place] [address] comptroller 06/10/20 Luna Simons MD [address] [place] [address] 480 [place], [place] 586575 Assigned Cancer Care Provider 09/12/21 01/18/24 Nadja Hagen MD [address] Floor 2, [address] [place], [place] 9[address] Resident Psychiatry 04/01/22 05/13/24 Batool Atkinson, PhD LP 2450 [facility] [address] [place] [address] Psychologist Licensed Mental Health 04/01/22 Prisca Miller MD 516 [facility] 295 [place], [place] 4208[address] Resident Neurology 02/10/23 Jennyfer Steele APRN AXMINSTER RUG SETTER [address] [place] [address] [address] [place] [address] Nurse Practitioner Psychiatry 02/23/23 Jennyfer Steele APRN AXMINSTER RUG SETTER [facility] [address] [place] [address] Assigned Behavioral Health Provider 06/30/23 Sadaf Apple NP Assigned PCP 07/21/23 09/18/23 [facility] [phone] [place] [address] Assigned PCP 09/19/23 Yamel Saha PA-C 420 [facility] 480 [place], [place] 761505 Assigned Cancer Care Provider 01/19/24 04/19/24 Luna Simons MD 420 [facility] 480 [place] [address] Assigned Cancer Care Provider 04/20/24 documented as of this encounter
--- OUTSIDE RECORDS SUMMARY | 2024-10-15 18:40 | XMS_ITS | Encounter Summary ---
Author Organization [place] Address [address] [place] [address] Care Team Providers Care Piano Assembler Name Role Phone Cyndie Eisenberg NP Primary Care Provider + Rodney Natarajan MD Unavailable [phone] Luna Simons MD Unavailable Caroline Duque RN Unavailable [phone] Martha White MD Unavailable [phone] Pedrito Ramirez MD Unavailable [phone] Rodney Natarajan MD Unavailable [phone] Ankita Park MD Unavailable [phone] Ankita Park MD Unavailable [phone] Luna Simons MD Unavailable Jose Zaragoza NP Unavailable Mio Mclean MD Unavailable [phone] Luna Simons MD Unavailable Nadja Hagen MD Unavailable [phone] Batool Atkinson PhD LP Unavailable [phone] Prisca Miller MD Unavailable [phone] Jennyfer Steele APRN ASSOCIATE PROFESSOR OF ARCHAEOLOGY Unavailable +- Jennyfer Steele E SPEECH LANGUAGE THERAPIST ASSOCIATE PROFESSOR OF ARCHAEOLOGY Unavailable + Sadaf Apple NP Unavailable Unavailable [facility] Unavailabl e Yamel Saha PA-C Unavailable Luna Simons MD Unavailable [phone] Encounter Details Date Type Department Care Team (Late st Contact Info) Description 08/18/2020 MyC Medical Advice [facility] 9 [place] [address] Luna Simons MD [address] [place] [address] Social History Tobacco Use Types Packs/Day [...] [facility] Breast Center Imaging [place] [address] [place] [address] 2nd [place] [address] Luna Simons MD [address] [place] [address] 09/15/2025 10:00 AM CDT Oncology Visit [facility] 909 [place] [address] Luna Simons MD [address] [place] [facility] 480 [place] [address] documented as of this encounter Visit Diagnoses Not on filedocumented in this encounter Additional Health Concerns Infection Onset Date Last Indicated Resolved Time Rule Out COVID-19 01/24/2023 01/24/2023 01/24/2023 10:32 PM CDT documented as of this encounter Care Teams Piano Assembler Relationship Specialty Start Date End Date Cyndie Eisenberg MANAGER [employer] [address] [place] [address] PCP - General 09/25/19 Rodney Natarajan MD [address] [place] [facility] 195 [place], [place] 80[address] MD General Surgery 09/25/19 Luna Simons MD [address] [place] [facility] 480 [place] [address] Hematology 09/25/19 Caroline Duque, RN Specialty Bellows Assembler Breast Oncology 09/30/19 Martha White MD [address] [facility] [address] [place] [address] [place] [address] equipment service associate 11/01/19 Pedrito Ramirez MD [address] [place] [address] [place] [address]95 Assigned Heart and Vascular Provider 03/20/20 11/07/20 Rodney Natarajan MD [address] [place] [facility] 195 [place], [place] 68[address] Assigned Surgical Provider 03/20/20 08/07/21 Ankita Park MD [address] [address] Assigned Behavioral Health Provider 05/03/20 06/29/23 Ankita Park MD [facility] [address] [address] equipment service associate 06/10/20 Luna Simons MD 420 [facility] 480 [place] [address] Assigned Cancer Care Provider 07/26/20 06/26/21 Jose Zaragoza MANAGER [employer] [address] [place] [address] Assigned Heart and Vascular Provider 11/08/20 02/04/22 Mio Mclean MD 420 [facility] 494 [place] [address] Assigned Cancer Care Provider 06/27/21 09/11/21 Luna Simons MD [address] [phone] Assigned Cancer Care Provider 09/12/21 01/18/24 Nadja Hagen MD [address] Floor 2, [address] [place] [address] Resident Psychiatry 04/01/22 05/13/24 Batool Atkinson, PhD LP [address] [place], [place] 7[address] [place], [place] [phone] Psychologist Licensed Mental Health 04/01/22 Prisca Miller MD 516 [facility] 295 [place], [place] [address] Resident Neurology 02/10/23 Jennyfer Steele APRN ASSOCIATE PROFESSOR OF ARCHAEOLOGY [address] [place] [address] 676654 Nurse Practitioner Psychiatry 02/23/23 Jennyfer Steele APRN ASSOCIATE PROFESSOR OF ARCHAEOLOGY [address] [place] [address] 048524 Assigned Behavioral Health Provider 06/30/23 Sadaf Apple NP Assigned PCP 07/21/23 09/18/23 [facility] [address] [place] [address] Assigned PCP 09/19/23 Yamel Saha PA-C 420 [facility] 480 [place], [place] 244605 Assigned Cancer Care Provider 01/19/24 04/19/24 Luna Simons MD 420 [facility] 480 [place], [place] 356505 Assigned Cancer Care Provider 04/20/24 documented as of this encounter
--- OUTSIDE RECORDS SUMMARY | 2024-10-15 18:40 | XMS_ITS | Encounter Summary ---
Author Organization [place] Address [address] [place] [address] Care Team Providers Care Oil Field Rig Builder Name Role Phone Cyndie Eisenberg NP Primary Care Provider + Rodney Natarajan MD Unavailable [phone] Luna Simons MD Unavailable Caroline Duque RN Unavailable +[phone] Martha White MD Unavailable [phone] Pedrito Ramirez MD Unavailable +[phone] Rodney Natarajan MD Unavailable +[phone] Ankita Park MD Unavailable [phone] Ankita Park MD Unavailable [phone] Luna Simons MD Unavailable Jose Zaragoza NP Unavailable +[phone] Mio Mclean MD Unavailable +[phone] Luna Simons MD Unavailable Nadja Hagen MD Unavailable +[phone] Batool Atkinson PhD LP Unavailable +[phone] Prisca Miller MD Unavailable +[phone] Jennyfer Steele APRN AEROSPACE TECHNICIAN Unavailable +- Jennyfer Steele BOG WORKER AEROSPACE TECHNICIAN Unavailable + Sadaf Apple NP Unavailable Unavailable Clinic - [facility] Unavailabl e Yamel Saha PA-C Unavailable Luna Simons MD Unavailable Encounter Details Date Type Department Care Team (Late Contact Info) Description 10/21/2020 MyC Medical Advice [facility] Cancer [address] [address] Talita Bradshaw Social History Tobacco [...] Ancillary Procedure [facility] Breast [facility] Imaging [address] 2nd [place] [address] Luna Simons MD [address] [place] [address] 09/15/2025 10:00 AM CDT Oncology Visit [facility] Cancer [address] [address] Luna Simons MD [address] [place] [address] documented as of this encounter Visit Diagnoses Not on filedocumented in this encounter Additional Health Concerns Infection Onset Date Last Indicated Resolved Time Rule Out COVID-19 01/24/2023 01/24/2023 01/24/2023 10:32 PM CDT documented as of this encounter Care Teams Oil Field Rig Builder Relationship Specialty Start Date End Date Cyndie Eisenberg NP [address] [place] [address] PCP - General 09/25/19 Rodney Natarajan MD [address] [facility] 195 [place], [place] 7[address]005 General Surgery 09/25/19 Luna Simons MD [address] [facility] 480 [place], [place] 632545 Hematology 09/25/19 Caroline Duque, RN Specialty Pulverizer Mill Operator Breast Oncology 09/30/19 Martha White MD [address] [place] [address] [address] [place], [place] 6[address]234 software test and validation engineer 11/01/19 Pedrito Ramirez MD 6405 [facility] [address] [place] [address] Assigned Heart and Vascular Provider 03/20/20 11/07/20 Rodney Natarajan MD [address] [facility] 195 [place], [place] 603065 Assigned Surgical Provider 03/20/20 08/07/21 Ankita Park MD [facility], [place] [phone] Assigned Behavioral Health Provider 05/03/20 06/29/23 Ankita Park MD 2450 [facility] [address] [phone] software test and validation engineer 06/10/20 Luna Simons MD 420 [facility] 480 [place], [place] 367745 Assigned Cancer Care Provider 07/26/20 06/26/21 Jose Zaragoza NP 6405 [facility] [place] [address] Assigned Heart and Vascular Provider 11/08/20 02/04/22 Mio Mclean MD 420 [facility] 494 [place], [place] 378535 Assigned Cancer Care Provider 06/27/21 09/11/21 Luna Simons MD 420 [facility] 480 [place] [address] Assigned Cancer Care Provider 09/12/21 01/18/24 Nadja Hagen MD [address] 2, [address] [place], [place] [address] Resident Psychiatry 04/01/22 05/13/24 Batool Atkinson, PhD LP [address] [place] [address] [address] [place], [place] 272504 Psychologist Licensed Mental Health 04/01/22 Prisca Miller MD 516 [facility] 295 [place] [address] Resident Neurology 02/10/23 Jennyfer Steele APRN AEROSPACE TECHNICIAN [address] [place] [address] [address] [place] [address] Nurse Practitioner Psychiatry 02/23/23 Jennyfer Steele APRN AEROSPACE TECHNICIAN [address] [place] [address] [address] [place] [address] Assigned Behavioral Health Provider 06/30/23 Sadaf Apple NP Assigned PCP 07/21/23 09/18/23 [facility] [address] [place] [address] Assigned PCP 09/19/23 Yamel Saha PA-C 420 [facility] 480 [place], [place] 591145 Assigned Cancer Care Provider 01/19/24 04/19/24 Luna Simons MD 420 [facility] 480 [place], [place] 159975 Assigned Cancer Care Provider 04/20/24 documented as of this encounter
--- OUTSIDE RECORDS SUMMARY | 2024-10-15 18:40 | XMS_ITS | Encounter Summary ---
Author Organization [facility] Address [address] [place] [address] Care Team Providers Care Community Health Education Coordinator Name Role Phone Cyndie Eisenberg NP Primary Care Provider + Rodney Natarajan MD Unavailable [phone] Luna Simons MD Unavailable +[phone] Caroline Duque RN Unavailable +[phone] Martha White MD Unavailable +[phone] Ankita Park MD Unavailable +[phone] Ankita Park MD Unavailable +[phone] Luna Simons MD Unavailable +[phone] Nadja Hagen MD Unavailable +[phone] Batool Atkinson PhD LP Unavailable +[phone] Prisca Miller MD Unavailable +[phone] Jennyfer Steele APRN PURCHASING MANAGER Unavailable +[phone] Jennyfer Steele APRN PURCHASING MANAGER Unavailable + [phone] Sadaf Apple NP Unavailable Unavailable [facility] Unavailabl e Yamel Shaa PA-C Unavailable +[phone] Luna Simons MD Unavailable +[phone] Encounter Details Date Type Department Care Team (Late st Contact Info) Description 11/28/2022 MyC Medical Advice [facility] [place] [id number] [address] [phone] Talita Bradshaw Social History Tobacco Use Types [...] [facility] Breast [facility] Imaging [address] 2nd [place] [phone] Luna Simons MD [address] [place] [address] 662705 09/15/2025 10:00 AM CDT Oncology Visit [facility] [address] [place] [phone] Luna Simons MD [address] [place] [address] 977915 documented as of this encounter Visit Diagnoses Not on filedocumented in this encounter Additional Health Concerns Infection Onset Date Last Indicated Resolved Time Rule Out COVID-19 01/24/2023 01/24/2023 01/24/2023 10:32 PM CDT Assessment Noted Time PHQ-9 Depression Total Score: 22 022 3:25 PM MACHINE FEATHEREDGER AND REDUCER documented as of this encounter Care Teams Community Health Education Coordinator Relationship Specialty Start Date End Date Cyndie Eisenberg NP [address] [place] [address] PCP - General 09/25/19 Rodney Natarajan MD 420 [facility] 195 [place], [place] 6232[address] MD General Surgery 09/25/19 Luna Simons MD 420 [facility] 480 [place], [place] 661735 MD Hematology 09/25/19 Caroline Duque, ASHLIE Specialty Pad Making Machine Operator Breast Oncology 09/30/19 Martha White MD [address] [facility] [address] [place], [place] 673034 computer systems designer 11/01/19 Ankita Park MD [address] [place] [phone] Assigned Behavioral Health Provider 05/03/20 06/29/23 Ankita Park MD [address] [place] [phone] computer systems designer 06/10/20 Luna Simons MD [address] [place] [address] 480 [place] [address] Assigned Cancer Care Provider 09/12/21 01/18/24 Nadja Hagen MD 2312 S [facility] Floor 2, [address] [place], [place] 6[address]284 Resident Psychiatry 04/01/22 05/13/24 [place] [address] [place] [address] F282 [place] [address] Psychologist Licensed Mental Health 04/01/22 Prisca Miller MD 516 [facility] 295 [place] [address] Resident Neurology 02/10/23 Jennyfer Steele APRN PURCHASING MANAGER [address] [place] [address] [address] [place] [address] Nurse Practitioner Psychiatry 02/23/23 Jennyfer Steele APRN PURCHASING MANAGER [address] [place] [address] [address] [place] [address] Assigned Behavioral Health Provider 06/30/23 Sadaf Apple NP Assigned PCP 07/21/23 09/18/23 [facility] [address] [place] [address] Assigned PCP 09/19/23 Yamel Saha PA-C 420 [facility] 480 [place] [address] Assigned Cancer Care Provider 01/19/24 04/19/24 Luna Simons MD 420 [facility] 480 [place], [place] 190175 Assigned Cancer Care Provider 04/20/24 documented as of this encounter
--- OUTSIDE RECORDS SUMMARY | 2024-10-15 18:40 | XMS_ITS | Encounter Summary ---
Author Organization [place] Address [address] [place] [address] Care Team Providers Care Automatic Splicing Machine Operator Name Role Phone Cyndie Eisenberg NP Primary Care Provider + Rodeny Natarajan MD Unavailable [phone] Luna Simons MD Unavailable +[phone] Caroline Duque RN Unavailable [phone] Martha White MD Unavailable +[phone] Ankita Park MD Unavailable +[phone] Ankita Park MD Unavailable [phone] Luna Simons MD Unavailable +[phone] Nadja Hagen MD Unavailable +[phone] Batool Atkinson PhD LP Unavailable +[phone] Prisca Miller MD Unavailable +[phone] Jennyfer Steele APRN MEDICAL CODER Unavailable +[phone] Jennyfer Steele APRN MEDICAL CODER Unavailable + [phone] Sadaf Apple NP Unavailable Unavailable [facility] Unavailabl e Yamel Saha PA-C Unavailable +[phone] Luna Simons MD Unavailable +[phone] Encounter Details Date Type Department Care Team (Late st Contact Info) Description 11/02/[address] [facility] Mental Health & Addiction [place] [id number] [address] [phone] Lorelei Ramirez LSW Social History Tobacco Use [...] [facility] [address] 2nd [place] [phone] Luna Simons MD [address] [place] [address] 155485 09/15/2025 10:00 AM CDT Oncology Visit [facility] [address] [place] [phone] Luna Simons MD [address] [place] [address] 313415 documented as of this encounter Visit Diagnoses Not on filedocumented in this encounter Additional Health Concerns Infection Onset Date Last Indicated Resolved Time Rule Out COVID-19 01/24/2023 01/24/2023 01/24/2023 10:32 PM CDT Assessment Noted Time PHQ-9 Depression Total Score: 22 022 3:25 PM NEW ACCOUNT INTERVIEWER documented as of this encounter Care Teams Automatic Splicing Machine Operator Relationship Specialty Start Date End Date Cyndie Eisenberg NP 100 [facility] [place] [address] PCP - General 09/25/19 Rodney Natarajan MD 420 [facility] 195 [place], [place] 8979[address] General Surgery 09/25/19 Luna Simons MD 420 [facility] 480 [place], [place] 743895 MD Hematology 09/25/19 Caroline Duque, RN Specialty Physician Extender Breast Oncology 09/30/19 Martha White MD [address] [facility] [address] [place], [place] [address] director of social media marketing 11/01/19 Ankita Park MD [address] [place] [phone] Assigned Behavioral Health Provider 05/03/20 06/29/23 Ankita Park MD [address] [place] [phone] director of social media marketing 06/10/20 Luna Simons MD [address] [place] [address] 480 [place] [address] Assigned Cancer Care Provider 09/12/21 01/18/24 Nadja Hagen MD [address] Floor 2, [address] [place], [place] 9[address]14 Resident Psychiatry 04/01/22 05/13/24 Batool Atkinson, PhD LP 2450 [facility] [address] [place] [address] Psychologist Licensed Mental Health 04/01/22 Prisca Miller MD 516 [facility] 295 [place] [address] Resident Neurology 02/10/23 Jennyfer Steele APRN MEDICAL CODER [facility][note 3][address] [place] [address] Nurse Practitioner Psychiatry 02/23/23 Jennyfer Steele APRN MEDICAL CODER [facility][note 3][address] [place] [address] Assigned Behavioral Health Provider 06/30/23 Sadaf Apple NP Assigned PCP 07/21/23 09/18/23 [facility] [address] [place] [address] Assigned PCP 09/19/23 Yamel Saha PA-C 420 [facility] 480 [place] [address] Assigned Cancer Care Provider 01/19/24 04/19/24 Luna Simons MD 420 [facility] 480 [place], [place] 913205 Assigned Cancer Care Provider 04/20/24 documented as of this encounter
--- OUTSIDE RECORDS SUMMARY | 2024-10-15 18:40 | XMS_ITS | Encounter Summary ---
Author Organization [facility] Address [address] [place] [address] Care Team Providers Care Senior Planning Manager Name Role Phone Cyndie Eisenberg NP Primary Care Provider + Rodney Natarajan MD Unavailable [phone] Luna Simons MD Unavailable [phone] Caroline Duque RN Unavailable [phone] Martha White MD Unavailable [phone] Pedrito Ramirez MD Unavailable [phone] Rodney Natarajan MD Unavailable +[phone] Ankita Park MD Unavailable [phone] Ankita Park MD Unavailable [phone] Luna Simons MD Unavailable Jose Zaragoza NP Unavailable Mio Mclean MD Unavailable +[phone] Luna Simons MD Unavailable Nadja Hagen MD Unavailable +[phone] Batool Atkinson PhD LP Unavailable [phone] Prisca Miller MD Unavailable Jennyfer Steele APRN MORTGAGE COUNSELOR Unavailable +- Jennyfer Steele CORPORATE DEVELOPMENT ASSOCIATE MORTGAGE COUNSELOR Unavailable + Sadaf Apple NP Unavailable Unavailable Clinic - [facility] Unavailabl e Yamel Saha PA-C Unavailable Luna Simons MD Unavailable [phone] Encounter Details Date Type Department Care Team (Late Contact Info) Description 09/12/2020 MyC Medical Advice [facility] Cancer [address] [phone] Talita Bradshaw Social History Tobacco [...] Description 09/15/2025 9:15 AM CDT Ancillary Procedure [facility] Breast Center Imaging [address] 2nd [place] [address] Luna Simons MD [address] [place] [address] 09/15/2025 10:00 AM CDT Oncology Visit [facility] Cancer [address] [phone] Luna Simons MD [address] [place] [address] documented as of this encounter Visit Diagnoses Not on filedocumented in this encounter Additional Health Concerns Infection Onset Date Last Indicated Resolved Time Rule Out COVID-19 01/24/2023 01/24/2023 01/24/2023 10:32 PM CDT documented as of this encounter Care Teams Senior Planning Manager Relationship Specialty Start Date End Date Cyndie Eisenberg NP [address] [place] [address] PCP - General 09/25/19 Rodney Natarajan MD [address] [facility] 195 [place], [place] 9[address] General Surgery 09/25/19 Luna Simons MD [address] [facility] 480 [place], [place] 793935 Hematology 09/25/19 Caroline Duque, RN Specialty Shuttle Preparation Supervisor Breast Oncology 09/30/19 Martha White MD [address] [place] [address] [address] [place], [place] 786984 director of teenage activities 11/01/19 Pedrito Ramirez MD 6405 [facility] [address]200 [place] [address] Assigned Heart and Vascular Provider 03/20/20 11/07/20 Rodney Natarajan MD [address] [facility] 195 [place], [place] 195355 Assigned Surgical Provider 03/20/20 08/07/21 Ankita Park MD [facility] [place] [phone] Assigned Behavioral Health Provider 05/03/20 06/29/23 Ankita Park MD 2450 [facility] [address] [phone] director of teenage activities 06/10/20 Luna Simons MD 420 [facility] 480 [place], [place] 0[address]235 Assigned Cancer Care Provider 07/26/20 06/26/21 Jose Zaragoza NP 6405 [facility] [place] [address] Assigned Heart and Vascular Provider 11/08/20 02/04/22 Mio Mclean MD 420 [facility] 494 [place], [place] [address]955 Assigned Cancer Care Provider 06/27/21 09/11/21 Luna Simons MD 420 [facility] 480 [place] [address] Assigned Cancer Care Provider 09/12/21 01/18/24 Nadja Hagen MD [address] 2, [address] [place], [place] [address] Resident Psychiatry 04/01/22 05/13/24 Batool Atkinson, PhD LP [address] [place] [address] F282 [place], [place] 598844 Psychologist Licensed Mental Health 04/01/22 Prisca Miller MD 516 [facility] 295 [place] [address] Resident Neurology 02/10/23 Jennyfer Steele APRN MORTGAGE COUNSELOR [address] [place] [address] [address] [place] [address] Nurse Practitioner Psychiatry 02/23/23 Jennyfer Steele APRN MORTGAGE COUNSELOR [address] [place] [address] [address] [place] [address] Assigned Behavioral Health Provider 06/30/23 Sadaf Apple NP Assigned PCP 07/21/23 09/18/23 [facility] [address] [place] [address] Assigned PCP 09/19/23 Yamel Saha PA-C 420 [facility] 480 [place], [place] 2[address]05 Assigned Cancer Care Provider 01/19/24 04/19/24 Luna Simons MD 420 [facility] 480 [place], [place] 66[address] Assigned Cancer Care Provider 04/20/24 documented as of this encounter
--- OUTSIDE RECORDS SUMMARY | 2024-10-15 18:40 | XMS_ITS | Encounter Summary ---
Author Organization [place] Address [address] [place] [address] Care Team Providers Care Talent Acquisition Assistant Name Role Phone Cyndie Eisenberg NP Primary Care Provider + Rodney Natarajan MD Unavailable [phone] Luna Simons MD Unavailable +[phone] Caroline Duque RN Unavailable [phone] Martha White MD Unavailable [phone] Rodney Natarajan MD Unavailable +[phone] Ankita Park MD Unavailable +[phone] Ankita Park MD Unavailable [phone] Luna Simons MD Unavailable Jose Zaragoza NP Unavailable Mio Mclean MD Unavailable +[phone] Luna Simons MD Unavailable +[phone] Nadja Hagen MD Unavailable [phone] Batool Atkinson PhD LP Unavailable [phone] Prisca Miller MD Unavailable +[phone] Jennyfer Steele APRN IT BUSINESS ANALYST Unavailable +[phone] Jennyfer Steele APRN IT BUSINESS ANALYST Unavailable + 3 Sadaf Apple NP Unavailable Unavailable Clinic - [facility] Unavailabl e Yamel Saha PA-C Unavailable [phone] Luna Simons MD Unavailable [phone] Encounter Details Date Type Department Care Team (Late st Contact Info) Description 02/26/[address] [facility] Cancer [address] [phone] Talita Bradshaw Social History Tobacco Use Types [...] [facility] [address] 2nd [place] [phone] Luna Simons MD [address] [place] [address] 926815 09/15/2025 10:00 AM CDT Oncology Visit [facility] Cancer [address] [phone] Luna Simons MD [address] [place] [address] 096605 documented as of this encounter Visit Diagnoses Not on filedocumented in this encounter Additional Health Concerns Infection Onset Date Last Indicated Resolved Time Rule Out COVID-19 01/24/2023 01/24/2023 01/24/2023 10:32 PM CDT documented as of this encounter Care Teams Talent Acquisition Assistant Relationship Specialty Start Date End Date Cyndie Eisenberg, AMANDA [address] [place] [address] PCP - General 09/25/19 Rodney Natarajan MD 420 [facility] 195 [place] [address] General Surgery 09/25/19 Luna Simons MD 420 [facility] 480 [place], [place] [address]415 Hematology 09/25/19 Caroline Duque, ASHLIE Specialty Funeral Professional Breast Oncology 09/30/19 Martha White MD [facility] [address] [place], [place] [address] manager research and development 11/01/19 Rodney Natarajan MD 420 [facility] 195 [place], [place] 135575 Assigned Surgical Provider 03/20/20 08/07/21 Ankita Park MD [address] [place] [address] Assigned Behavioral Health Provider 05/03/20 06/29/23 Ankita Park MD [address] [place] [phone] manager research and development 06/10/20 Luna Simons MD 420 [facility] 480 [place], [place] 885845 Assigned Cancer Care Provider 07/26/20 06/26/21 Jose Zaragoza, MOLD SHOP SUPERVISOR 6405 [facility] [place], [place] 603[address] Assigned Heart and Vascular Provider 11/08/20 02/04/22 Mio Mclean MD 420 [facility] 494 [place] [address] Assigned Cancer Care Provider 06/27/21 09/11/21 Luna Simons MD 420 [facility] 480 [place] [address] Assigned Cancer Care Provider 09/12/21 01/18/24 Nadja Hagen MD [address] [place] [address] Floor 2, [address] [place], [place] 320[address] Resident Psychiatry 04/01/22 05/13/24 Batool Atkinson, PhD LP 2450 [facility] [address] [place], [place] 191354 Psychologist Licensed Mental Health 04/01/22 Prisca Miller MD 6 [facility] 295 [place], [place] 213095 Resident Neurology 02/10/23 Jennyfer Steele APRN IT BUSINESS ANALYST [address] [place] [address] Nurse Practitioner Psychiatry 02/23/23 Jennyfer Steele APRN IT BUSINESS ANALYST [address] [place] [address] Assigned Behavioral Health Provider 06/30/23 Sadaf Apple NP Assigned PCP 07/21/23 09/18/23 [facility] [address] [place] [address] Assigned PCP 09/19/23 Yamel Saha PA-C [address] 720875 Assigned Cancer Care Provider 01/19/24 04/19/24 Luna Simons MD [address] [address] Assigned Cancer Care Provider 04/20/24 documented as of this encounter
--- OUTSIDE RECORDS SUMMARY | 2024-10-15 18:40 | XMS_ITS | Encounter Summary ---
Author Organization [place] Address [address] [place] [address] Care Team Providers Care Compress Engineer Name Role Phone Cyndie Eisenberg NP Primary Care Provider + Rodney Natarajan MD Unavailable +[phone] Luna Simons MD Unavailable +[phone] Caroline Duque RN Unavailable [phone] Martha White MD Unavailable +- [phone] Ankita Park MD Unavailable +[phone] Ankita Park MD Unavailable +[phone] Luna Simons MD Unavailable +[phone] Nadja Hagen MD Unavailable +[phone] Batool Atkinson PhD LP Unavailable +[phone] Prisca Miller MD Unavailable +[phone] Jennyfer Steele APRN FIELD STAFF Unavailable +[phone] Jennyfer Steele APRN FIELD STAFF Unavailable + [phone] Sadaf Apple NP Unavailable Unavailable [facility] Unavailabl e Yamel Saha PA-C Unavailable +[phone] Luna Simons MD Unavailable +[phone] Encounter Details Date Type Department Care Team (Late st Contact Info) Description 10/19/2022 MyC Medical Advice [facility] Mental Health & Addiction [place] [id number] [phone] Talita Bradshaw Social History Tobacco Use Types [...] Description 09/15/2025 9:15 AM CDT Ancillary Procedure [facility] Breast Center Imaging [address] 2nd [place] [address] Luna Simons MD [address] [place] [address] 159155 09/15/2025 10:00 AM CDT Oncology Visit [facility] [address] [place] [phone] Luna Simons MD [address] [place] [address] [phone] documented as of this encounter Visit Diagnoses Not on filedocumented in this encounter Additional Health Concerns Infection Onset Date Last Indicated Resolved Time Rule Out COVID-19 01/24/2023 01/24/2023 01/24/2023 10:32 PM CDT Assessment Noted Time PHQ-9 Depression Total Score: 22 022 3:25 PM CHIROPRACTIC NEUROLOGIST documented as of this encounter Care Teams Compress Engineer Relationship Specialty Start Date End Date Cyndie Eisenberg NP [address] [place] [address] PCP - General 09/25/19 Rodney Natarajan MD 420 [facility] 195 [place], [place] 645355 MD General Surgery 09/25/19 Luna Simons MD 420 [facility] 480 [place], [place] 560955 MD Hematology 09/25/19 Caroline Duque, ASHLIE Specialty Diagrammer Breast Oncology 09/30/19 Martha White MD [address] [facility] [address] [place], [place] 569604 washhouse worker 11/01/19 Ankita Park MD [address] [place] [phone] Assigned Behavioral Health Provider 05/03/20 06/29/23 Ankita Park MD [address] [place] [address] [phone] washhouse worker 06/10/20 Luna Simons MD [address] [place] [address] 480 [place] [address] Assigned Cancer Care Provider 09/12/21 01/18/24 Nadja Hagen MD 2312 S [facility] Floor 2, [address] [place], [place] [address] Resident Psychiatry 04/01/22 05/13/24 [place] [address] [place] [address] [address] [place] [address] Psychologist Licensed Mental Health 04/01/22 Prisca Miller MD 516 [facility] 295 [place] [address] Resident Neurology 02/10/23 Jennyfer Steele APRN FIELD STAFF [address] [place] [address] [address] [place] [address] Nurse Practitioner Psychiatry 02/23/23 Jennyfer Steele APRN FIELD STAFF [address] [place] [address] [address] [place] [address] Assigned Behavioral Health Provider 06/30/23 Sadaf Apple NP Assigned PCP 07/21/23 09/18/23 [facility] [id number] [place] [address] 368[address] Assigned PCP 09/19/23 Yamel Saha PA-C 420 [facility] 480 [place] [address] Assigned Cancer Care Provider 01/19/24 04/19/24 Luna Simons MD 420 [facility] 480 [place], [place] 350365 Assigned Cancer Care Provider 04/20/24 documented as of this encounter
--- OUTSIDE RECORDS SUMMARY | 2024-10-15 18:40 | XMS_ITS | Encounter Summary ---
Author Organization [place] Address [address] [place] [address]75 Care Team Providers Care Outdoor Adventure Guides Name Role Phone Cyndie Eisenberg NP Primary Care Provider + Rodney Natarajan MD Unavailable +[phone] Luna Simons MD Unavailable +[phone] Caroline Duque RN Unavailable [phone] Martha White MD Unavailable +- [phone] Ankita Park MD Unavailable +[phone] Ankita Park MD Unavailable +[phone] Luna Simons MD Unavailable +[phone] Nadja Hagen MD Unavailable +[phone] Batool Atkinson PhD LP Unavailable +[phone] Prisca Miller MD Unavailable +[phone] Jennyfer Steele APRN INTERNAL MEDICINE VETERINARY TECHNICIAN Unavailable +[phone] Jennyfer Steele APRN INTERNAL MEDICINE VETERINARY TECHNICIAN Unavailable + 3 Sadaf Apple NP Unavailable Unavailable [facility] Unavailabl e Yamel Saha PA-C Unavailable +[phone] Luna Simons MD Unavailable +[phone] Encounter Details Date Type Department Care Team (Late st Contact Info) Description 12/13/2022 MyC Medical Advice [facility] Cancer [address] [phone] Talita Bradshaw Social History Tobacco Use Types [...] [facility] Breast Center Imaging [address] 2nd [place] [phone] Luna Simons MD [address] [place] [address] 09/15/2025 10:00 AM CDT Oncology Visit [facility] Cancer [address] [phone] Luna Simons MD [address] [place] [address] [phone] documented as of this encounter Visit Diagnoses Not on filedocumented in this encounter Additional Health Concerns Infection Onset Date Last Indicated Resolved Time Rule Out COVID-19 01/24/2023 01/24/2023 01/24/2023 10:32 PM CDT Assessment Noted Time PHQ-9 Depression Total Score: 22 022 3:25 PM ROTARY RIG ENGINE OPERATOR documented as of this encounter Care Teams Outdoor Adventure Guides Relationship Specialty Start Date End Date Cyndie Eisenberg NP [address] [place] [address] PCP - General 09/25/19 Rodney Natarajan MD 420 [facility] 195 [place], [place] 2163[address] MD General Surgery 09/25/19 Luna Simons MD [address] [place] [facility] 480 [place], [place] 532995 MD Hematology 09/25/19 Caroline Duque, ASHLIE Specialty Brim Rounder Breast Oncology 09/30/19 Martha White MD [address] [facility] [address] [place], [place] 6[address] machine clipper 11/01/19 Ankita Park MD [facility] [address] [phone] Assigned Behavioral Health Provider 05/03/20 06/29/23 Ankita Park MD [facility] [address] [address] machine clipper 06/10/20 Luna Simons MD [address] [place] [facility] 480 [place] [address] Assigned Cancer Care Provider 09/12/21 01/18/24 Nadja Hagen MD [address] Floor 2, [address] [place], [place] [address] Resident Psychiatry 04/01/22 05/13/24 Batool Atkinson, PhD LP 2450 [facility] [address] [place], [place] 614[address] Psychologist Licensed Mental Health 04/01/22 Prisca Miller MD 516 [facility] 295 [place] [address] Resident Neurology 02/10/23 Jennyfer Steele APRN INTERNAL MEDICINE VETERINARY TECHNICIAN [address] [place], [place] 134[address]275 [place] [address] Nurse Practitioner Psychiatry 02/23/23 Jennyfer Steele APRN INTERNAL MEDICINE VETERINARY TECHNICIAN [address] [place], [place] 134[address]275 [place] [address] Assigned Behavioral Health Provider 06/30/23 Sadaf Apple NP Assigned PCP 07/21/23 09/18/23 [facility] [address] [place] [address] Assigned PCP 09/19/23 Yamel Saha PA-C 420 [facility] 480 [place], [place] 052945 Assigned Cancer Care Provider 01/19/24 04/19/24 Luna Simons MD 420 [facility] 480 [place], [place] 715395 Assigned Cancer Care Provider 04/20/24 documented as of this encounter
--- OUTSIDE RECORDS SUMMARY | 2024-10-15 18:40 | XMS_ITS | Encounter Summary ---
Author Organization [place] Address [address] [place] [address] Care Team Providers Care Mortgage Banker Name Role Phone Cyndie Eisenberg NP Primary Care Provider + Rodney Natarajan MD Unavailable [phone] Luna Simons MD Unavailable Caroline Duque RN Unavailable [phone] Martha White MD Unavailable Pedrito Ramirez MD Unavailable [phone] Rodney Natarajan MD Unavailable [phone] Ankita Park MD Unavailable [phone] Ankita Park MD Unavailable [phone] Luna Simons MD Unavailable Jose Zaragoza NP Unavailable Mio Mclean MD Unavailable [phone] Luna Simons MD Unavailable Nadja Hagen MD Unavailable [phone] Batool Atkinson PhD LP Unavailable [phone] Prisca Miller MD Unavailable Jennyfer Steele APRN EMULSIFICATION OPERATOR Unavailable +- Jennyfer Steele Ravi BROWN EMULSIFICATION OPERATOR Unavailable + Sadaf Apple NP Unavailable Unavailable [facility] Unavailabl e Yamel Saha PA-C Unavailable [phone] Luna Simons MD Unavailable Encounter Details Date Type Department Care Team (Late st Contact Info) Description 10/20/2020 MyC Medical Advice [facility] 909 [place] [address] Luna Simons MD [address] [place] [address] Social History Tobacco Use Types Packs/Day [...] [facility] Breast [facility] Imaging [place] [address] [place] [address] 2nd [place] [address] Luna Simons MD [address] [place] [address] 09/15/2025 10:00 AM CDT Oncology Visit [facility] 909 [place] [address] Luna Simons MD [address] [place] [facility] 480 [place] [address] documented as of this encounter Visit Diagnoses Not on filedocumented in this encounter Additional Health Concerns Infection Onset Date Last Indicated Resolved Time Rule Out COVID-19 01/24/2023 01/24/2023 01/24/2023 10:32 PM CDT documented as of this encounter Care Teams Mortgage Banker Relationship Specialty Start Date End Date Cyndie Eisenberg DEVELOPMENT EXECUTIVE [address] [place] [address] PCP - General 09/25/19 Rodney Natarajan MD [address] [place] [facility] 195 [place], [place] 787085 MD General Surgery 09/25/19 Luna Simons MD [address] [place] [facility] 480 [place] [address] Hematology 09/25/19 Caroline Duque, RN Specialty Metal Hardener Breast Oncology 09/30/19 Martha White MD [address] [facility] [address] [place] [address] rayon coner 11/01/19 Pedrito Ramirez MD [address] [place] 336655 Assigned Heart and Vascular Provider 03/20/20 11/07/20 Rodney Natarajan MD [address] [place] [facility] 195 [place], [place] 712005 Assigned Surgical Provider 03/20/20 08/07/21 Ankita Park MD [address] [address] Assigned Behavioral Health Provider 05/03/20 06/29/23 Ankita Park MD [facility] [address] [address] rayon coner 06/10/20 Luna Simons MD 420 [facility] 480 [place] [address] Assigned Cancer Care Provider 07/26/20 06/26/21 Jose Zaragoza DEVELOPMENT EXECUTIVE 6405 [place] [address] Assigned Heart and Vascular Provider 11/08/20 02/04/22 Mio Mclean MD 420 [facility] 494 [place] [address] Assigned Cancer Care Provider 06/27/21 09/11/21 Luna Simons MD [address] [phone] Assigned Cancer Care Provider 09/12/21 01/18/24 Nadja Hagen MD [address] Floor 2, [address] [place] [address] Resident Psychiatry 04/01/22 05/13/24 Batool Atkinson, PhD LP [address] [place], [place] [address]82 [place], [place] [address] Psychologist Licensed Mental Health 04/01/22 Prisca Miller MD 516 [facility] 295 [place], [place] 473925 Resident Neurology 02/10/23 Jennyfer Steele APRN EMULSIFICATION OPERATOR [address] [place] [address] 982424 Nurse Practitioner Psychiatry 02/23/23 Jennyfer Steele APRN EMULSIFICATION OPERATOR [address] [place] [address] 989044 Assigned Behavioral Health Provider 06/30/23 Sadaf Apple NP Assigned PCP 07/21/23 09/18/23 [facility] [address] [place] [address] Assigned PCP 09/19/23 Yamel Saha PA-C 420 [facility] 480 [place], [place] 495365 Assigned Cancer Care Provider 01/19/24 04/19/24 Luna Simons MD 420 [facility] 480 [place], [place] 380185 Assigned Cancer Care Provider 04/20/24 documented as of this encounter
--- OUTSIDE RECORDS SUMMARY | 2024-10-15 18:40 | XMS_ITS | Encounter Summary ---
Author Organization [place] Address [address] [place] [address] 69252 Care Team Providers Care Die Cast Die Maker Name Role Phone Cyndie Eisenberg NP Primary Care Provider + Rodney Natarajan MD Unavailable [phone] Luna Simons MD Unavailable [phone] Caroline Duque RN Unavailable [phone] Martha White MD Unavailable +[phone] Ankita Park MD Unavailable [phone] Ankita Park MD Unavailable [phone] Luna Simons MD Unavailable [phone] Nadja Hagen MD Unavailable +[phone] Batool Atkinson PhD LP Unavailable +[phone] Prisca Miller MD Unavailable [phone] Jennyfer Steele APRN YEAST PUSHER Unavailable +[phone] Jennyfer Steele APRN YEAST PUSHER Unavailable + 3 Sadaf Apple NP Unavailable Unavailable [facility] Unavailabl e Yamel Saha PA-C Unavailable +[phone] Luna Simons MD Unavailable [phone] Encounter Details Date Type Department Care Team (Late st Contact Info) Description 01/02/2023 MyC Medical Advice [facility] Cancer [address] [phone] Caroline Duque RN Social History Tobacco Use [...] Procedure [facility] Breast Center Imaging [address] 2nd [place] [phone] Luna Simons MD [address] [place] [address] 133955 09/15/2025 10:00 AM CDT Oncology Visit [facility] Cancer [address] [phone] Luna Simons MD [address] [place] [address] 170355 documented as of this encounter Visit Diagnoses Not on filedocumented in this encounter Additional Health Concerns Infection Onset Date Last Indicated Resolved Time Rule Out COVID-19 01/24/2023 01/24/2023 01/24/2023 10:32 PM CDT Assessment Noted Time PHQ-9 Depression Total Score: 22 022 3:25 PM 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 documented as of this encounter Care Teams Die Cast Die Maker Relationship Specialty Start Date End Date Cyndie Eisenberg NP 100 [facility] [place] [address] PCP - General 09/25/19 Rodney Natarajan MD 420 [facility] 195 [place], [place] 154875 General Surgery 09/25/19 Luna Simons MD 420 [facility] 480 [place], [place] 0[address]295 MD Hematology 09/25/19 Caroline Duque, RN Specialty Steamtable Attendant Railroad Breast Oncology 09/30/19 Martha White MD 2312 [address] [facility] [address] [place], [place] 354364 medical services manager 11/01/19 Ankita Park MD [address] [place] [phone] Assigned Behavioral Health Provider 05/03/20 06/29/23 Ankita Park MD [address] [place] [phone] medical services manager 06/10/20 Luna Simons MD [address] [place] [address] 480 [place] [address] Assigned Cancer Care Provider 09/12/21 01/18/24 Nadja Hagen MD [address] 6[address] 2, [address] [place], [place] 4301[address] Resident Psychiatry 04/01/22 05/13/24 Batool Atkinson, PhD LP 2450 [facility] [address] [place] [address] Psychologist Licensed Mental Health 04/01/22 Prisca Miller MD 516 [facility] 295 [place] [address] Resident Neurology 02/10/23 Jennyfer Steele APRN YEAST PUSHER [facility] [address] [place] [address] Nurse Practitioner Psychiatry 02/23/23 Jennyfer Steele APRN YEAST PUSHER [facility] [address] [place] [address] Assigned Behavioral Health Provider 06/30/23 Sadaf Apple NP Assigned PCP 07/21/23 09/18/23 [facility] [address] [place] [address] Assigned PCP 09/19/23 Yamel Saha PA-C 420 [facility] 480 [place] [address] Assigned Cancer Care Provider 01/19/24 04/19/24 Luna Simons MD 420 [facility] 480 [place], [place] 8[address]365 Assigned Cancer Care Provider 04/20/24 documented as of this encounter
--- OUTSIDE RECORDS SUMMARY | 2024-10-15 18:40 | XMS_ITS | Encounter Summary ---
Author Organization [place] Address [address] [place] [address] Care Team Providers Care Embroidery Worker Name Role Phone Cyndie Eisenberg NP Primary Care Provider + Rodney Natarajan MD Unavailable [phone] Luna Simons MD Unavailable +[phone] Caroline Duque RN Unavailable [phone] Martha White MD Unavailable [phone] Rodney Natarajan MD Unavailable +[phone] Ankita Park MD Unavailable +[phone] Ankita Park MD Unavailable [phone] Luna Simons MD Unavailable Jose Zaragoza NP Unavailable Mio Mclean MD Unavailable [phone] Luna Simons MD Unavailable Nadja Hagen MD Unavailable [phone] Batool Atkinson PhD LP Unavailable [phone] Prisca Miller MD Unavailable +[phone] Jennyfer Steele APRN CENTRAL STORES ATTENDANT Unavailable +[phone] Jennyfer Steele APRN CENTRAL STORES ATTENDANT Unavailable + 3 Sadaf Apple NP Unavailable Unavailable [facility] Unavailabl e Yamel Saha PA-C Unavailable Luna Simons MD Unavailable Encounter Details Date Type Department Care Team (Late Contact Info) Description 03/25/2021 MyC Medical Advice [facility] Cancer [address] [phone] Talita Bradshaw Social History Tobacco [...] [facility] Breast Center Imaging [address] 2nd [place] [address] Luna Simons MD [address] [place] [address] 871235 09/15/2025 10:00 AM CDT Oncology Visit [facility] Cancer [address] [address] Luna Simons MD [address] [place] [address] documented as of this encounter Visit Diagnoses Not on filedocumented in this encounter Additional Health Concerns Infection Onset Date Last Indicated Resolved Time Rule Out COVID-19 01/24/2023 01/24/2023 01/24/2023 10:32 PM CDT documented as of this encounter Care Teams Embroidery Worker Relationship Specialty Start Date End Date Cyndie Eisenberg NP [address] [place] [address] PCP - General 09/25/19 Rodney Natarajan MD 420 [facility] 195 [place], [place] 978265 General Surgery 09/25/19 Luna Simons MD 420 [place] [facility] 480 [place], [place] 984025 Hematology 09/25/19 Caroline Duque, ASHLIE Specialty Plateman Breast Oncology 09/30/19 Martha White MD [address] [place] [address] [address] [place], [place] 50884454 costume designer 11/01/19 Rodney Natarajan MD 420 [place] [facility] 195 [place], [place] 04434455 Assigned Surgical Provider 03/20/20 08/07/21 Ankita Park MD [facility] [address] [address] Assigned Behavioral Health Provider 05/03/20 06/29/23 Ankita Park MD [facility] [address] [phone] costume designer 06/10/20 Luna Simons MD 420 [facility] 480 [place], [place] [address]275 Assigned Cancer Care Provider 07/26/20 06/26/21 Jose Zaragoza, TACK MAKER 6405 [facility] [place] 426135 Assigned Heart and Vascular Provider 11/08/20 02/04/22 Mio Mclean MD 420 [facility] 494 [place], [place] 922595 Assigned Cancer Care Provider 06/27/21 09/11/21 Luna Simons MD 420 [facility] 480 [place], [place] 713465 Assigned Cancer Care Provider 09/12/21 01/18/24 Nadja Hagen MD 2312 S [facility] Floor 2, [address] [place], [place] [address]654 Resident Psychiatry 04/01/22 05/13/24 Batool Atkinson, PhD LP [facility] 82 [place], [place] 783804 Psychologist Licensed Mental Health 04/01/22 Prisca Miller MD 6 [facility] 295 [place], [place] 938905 Resident Neurology 02/10/23 Jennyfer Steele, TREE LOADER MEAT CENTRAL STORES ATTENDANT [address] [place] [address] [place], [place] 8[address] Nurse Practitioner Psychiatry 02/23/23 Jennyfer Steele APRN [facility] 2312 [place] 9170375 [place], [place] 842474 Assigned Behavioral Health Provider 06/30/23 Sadaf Apple NP Assigned PCP 07/21/23 09/18/23 [facility] [address] [place] [address] Assigned PCP 09/19/23 Yamel Saha PA-C [address] 741415 Assigned Cancer Care Provider 01/19/24 04/19/24 Luna Simons MD [address] 562395 Assigned Cancer Care Provider 04/20/24 documented as of this encounter
--- OUTSIDE RECORDS SUMMARY | 2024-10-15 18:40 | XMS_ITS | Encounter Summary ---
Author Organization [place] Address [address] [place] [address] Care Team Providers Care Pet Groomer Name Role Phone Cyndie Eisenberg NP Primary Care Provider + Rodney Natarajan MD Unavailable +[phone] Luna Simons MD Unavailable +[phone] Caroline Duque RN Unavailable Martha White MD Unavailable +[phone] Ankita Park MD Unavailable +[phone] Ankita Park MD Unavailable +[phone] Luna Simons MD Unavailable +[phone] Nadja Hagen MD Unavailable +[phone] Batool Atkinson PhD LP Unavailable +[phone] Prisca Miller MD Unavailable +[phone] Jennyfer Steele APRN SUPERVISOR ROVING DEPARTMENT Unavailable +[phone] Jennyfer Steele APRN SUPERVISOR ROVING DEPARTMENT Unavailable + 3 Sadaf Apple NP Unavailable Unavailable [facility] Unavailabl e Yamel Saha PA-C Unavailable +[phone] Luna Simons MD Unavailable +[phone] Encounter Details Date Type Department Care Team (Late st Contact Info) Description 01/02/2023 MyC Medical Advice [facility] Mental Health & Addiction [address] [place] [address] [phone] Nadja Hagen MD [address] [facility] Floor 2, [address] [place], [place] 666484 Social History Tobacco Use Types Packs/Day Years [...] [facility] Breast Center Imaging [place] [address] [place] [address] 2nd [place] [phone] Luna Simons MD [address] [place] [address] 257835 09/15/2025 10:00 AM CDT Oncology Visit [facility] 909 [place] [address] Luna Simons MD [address] [place] [address] 683105 documented as of this encounter Visit Diagnoses Not on filedocumented in this encounter Additional Health Concerns Infection Onset Date Last Indicated Resolved Time Rule Out COVID-19 01/24/2023 01/24/2023 01/24/2023 10:32 PM CDT Assessment Noted Time PHQ-9 Depression Total Score: 22 022 3:25 PM HOLE DIGGER documented as of this encounter Care Teams Pet Groomer Relationship Specialty Start Date End Date Rafaelrafal Cyndie Ann, AMANDA [address] [place] [address] PCP - General 09/25/19 Rodney Natarajan MD 420 [place] [facility] 195 [place], [place] 516915 General Surgery 09/25/19 Luna Simons MD 420 [facility] 480 [place], [place] 598305 Hematology 09/25/19 Caroline Duque, ASHLIE Specialty Chalk Molding Machine Operator Breast Oncology 09/30/19 Martha White MD [facility] [facility] [place] [address] [place], [place] [address] community development director 11/01/19 Ankita Park MD [address] [place] [phone] Assigned Behavioral Health Provider 05/03/20 06/29/23 Ankita Park MD [address] [place] [address] [phone] community development director 06/10/20 Luna Simons MD 420 [facility] 480 [place], [place] 108655 Assigned Cancer Care Provider 09/12/21 01/18/24 Nadja Hagen MD [address] [facility] Floor 2, [address] [place], [place] [phone] Resident Psychiatry 04/01/22 05/13/24 Batolo Atkinson, PhD LP [address] [place], [place] 318[address] [place], [place] 5977[address] Psychologist Licensed Mental Health 04/01/22 Prisca Miller MD 6 [facility] 295 [place], [place] 06[address]55 Resident Neurology 02/10/23 Jennyfer Steele APRN SUPERVISOR ROVING DEPARTMENT [address] [place], [place] [address] [place], [place] 7979[address] Nurse Practitioner Psychiatry 02/23/23 Jennyfer Steele APRN SUPERVISOR ROVING DEPARTMENT [address] [place], [place] [address] [place], [place] 467744 Assigned Behavioral Health Provider 06/30/23 Sadaf Apple NP Assigned PCP 07/21/23 09/18/23 [facility] [address] [place] [address] Assigned PCP 09/19/23 Yamel Saha PA-C 420 [facility] 480 [place], [place] 202075 Assigned Cancer Care Provider 01/19/24 04/19/24 Luna Simons MD 420 [facility] 480 [place], [place] 513065 Assigned Cancer Care Provider 04/20/24 documented as of this encounter
--- OUTSIDE RECORDS SUMMARY | 2024-10-15 18:40 | XMS_ITS | Encounter Summary ---
Author Organization [place] Address [address] [place] [address] Care Team Providers Care Economic Forecaster Name Role Phone Cyndie Eisenberg NP Primary Care Provider + Rodney Natarajan MD Unavailable [phone] Luna Simons MD Unavailable [phone] Carloine Duque RN Unavailable [phone] Martha White MD Unavailable +[phone] Ankita Park MD Unavailable +[phone] Ankita Park MD Unavailable +[phone] Luna Simons MD Unavailable +[phone] Nadja Hagen MD Unavailable +[phone] Batool Atkinson PhD LP Unavailable +[phone] Prisca Miller MD Unavailable +[phone] Jennyfer Steele APRN BUTTON CUTTER Unavailable +[phone] Jennyfer Steele APRN BUTTON CUTTER Unavailable + 3 Sadaf Apple NP Unavailable Unavailable [facility] Unavailabl e Yamel Saha PA-C Unavailable +[phone] Luna Simons MD Unavailable +[phone] Encounter Details Date Type Department Care Team (Late st Contact Info) Description 02/17/[address] [facility] Mental Health & Addiction [place] [id number] [address] [phone] Talita Bradshaw Social History Tobacco Use Types [...] Procedure [facility] Breast Center Imaging [address] 2nd [place] [phone] Luna Simons MD [address] [place] [address] 788545 09/15/2025 10:00 AM CDT Oncology Visit [facility] [address] [place] [phone] Luna Simons MD [address] [place] [address] 269625 documented as of this encounter Visit Diagnoses Not on filedocumented in this encounter Additional Health Concerns Assessment Noted Time PHQ-9 Depression Total Score: 22 022 3:25 PM RN PROVIDER RELATIONS documented as of this encounter Care Teams Economic Forecaster Relationship Specialty Start Date End Date Cyndie Eisenberg NP [address] [place] [address] PCP - General 09/25/19 Rodney Natarajan MD [address] [place] [facility] 195 [place], [place] 640815 MD General Surgery 09/25/19 Luna Simons MD [address] [place] [facility] 480 [place], [place] 511645 Hematology 09/25/19 Caroline Duque, ASHLIE Specialty Data Compiler Breast Oncology 09/30/19 Martha White MD [address] [place] [address] [place], [place] 574[address] tailoring teacher 11/01/19 Ankita Park MD [address] [place] [address] Assigned Behavioral Health Provider 05/03/20 06/29/23 Ankita Park MD [address] [place] [address] [phone] tailoring teacher 06/10/20 Luna Simons MD 420 [place] [facility] 480 [place], [place] 023455 Assigned Cancer Care Provider 09/12/21 01/18/24 Nadja Hagen MD [address] Floor 2, [address] [place], [place] 413664 Resident Psychiatry 04/01/22 05/13/24 Batool Atkinson, PhD LP [address] [place] [address] Psychologist Licensed Mental Health 04/01/22 Prisca Miller MD 6 [facility] 295 [place] [address] Resident Neurology 02/10/23 Jennyfer Steele APRN BUTTON CUTTER [address] [place] [address] Nurse Practitioner Psychiatry 02/23/23 Jennyfer Steele APRN BUTTON CUTTER [address] [place] [address] Assigned Behavioral Health Provider 06/30/23 Sadaf Apple NP Assigned PCP 07/21/23 09/18/23 [facility] [address] [place] [address] Assigned PCP 09/19/23 Yamel Saha PA-C 420 [facility] 480 [place], [place] 493465 Assigned Cancer Care Provider 01/19/24 04/19/24 Luna Simons MD 420 [facility] 480 [place], [place] 312715 Assigned Cancer Care Provider 04/20/24 documented as of this encounter
--- OUTSIDE RECORDS SUMMARY | 2024-10-15 18:40 | XMS_ITS | Encounter Summary ---
Author Organization [facility] Address [address] [place] [address] Care Team Providers Care Hot Punch Press Operator Name Role Phone Cyndie Eisenberg NP Primary Care Provider + Rodney Natarajan MD Unavailable [phone] Luna Simons MD Unavailable +[phone] Caroline Duque RN Unavailable [phone] Martha White MD Unavailable +[phone] Ankita Park MD Unavailable +[phone] Ankita Park MD Unavailable +[phone] Luna Simons MD Unavailable +[phone] Nadja Hagen MD Unavailable +[phone] Batool Atkinson PhD LP Unavailable +[phone] Prisca Miller MD Unavailable +[phone] Jennyfer Steele APRN SENIOR SOFTWARE ENGINEER Unavailable +[phone] Jennyfer Steele APRN SENIOR SOFTWARE ENGINEER Unavailable + 3 Sadaf Apple NP Unavailable Unavailable [facility] Unavailabl e Yamel Saha PA-C Unavailable +[phone] Luna Simons MD Unavailable +[phone] Encounter Details Date Type Department Care Team (Late st Contact Info) Description 12/21/2022 MyC Medical Advice [facility] Mental Health & Addiction [place] [id number] [address] [phone] Melisa Frances RN Social History Tobacco Use [...] Procedure [facility] Breast Center Imaging [address] 2nd [place] [address] Luna Simons MD [address] [place] [address] 550695 09/15/2025 10:00 AM CDT Oncology Visit [facility] [address] [place] [address] [phone] Luna Simons MD [address] [place] [address] 044515 documented as of this encounter Visit Diagnoses Not on filedocumented in this encounter Additional Health Concerns Infection Onset Date Last Indicated Resolved Time Rule Out COVID-19 01/24/2023 01/24/2023 01/24/2023 10:32 PM CDT Assessment Noted Time PHQ-9 Depression Total Score: 22 022 3:25 PM CHIROPRACTIC CARE documented as of this encounter Care Teams Hot Punch Press Operator Relationship Specialty Start Date End Date Cyndie Eisenberg NP [address] [address] PCP - General 09/25/19 Rodney Natarajan MD 420 [facility] 195 [place], [place] 189545 MD General Surgery 09/25/19 Luna Simons MD 420 [facility] 480 [place], [place] 557505 MD Hematology 09/25/19 Caroline Duque, RN Specialty Railroad Wheels And Axles Inspector Breast Oncology 09/30/19 Martha White MD 2312 S [facility] [address] [place] [address] gear straightener 11/01/19 Ankita Park MD [address] [place] [phone] Assigned Behavioral Health Provider 05/03/20 06/29/23 Ankita Park MD [address] [place] [address] [phone] gear straightener 06/10/20 Luna Simons MD [address] [place] [address] 480 [place] [address] Assigned Cancer Care Provider 09/12/21 01/18/24 Nadja Hagen MD [address] Floor 2, [address] [place], [place] [address] Resident Psychiatry 04/01/22 05/13/24 [place] [address] [place] [address] [address] [place], [place] 294424 Psychologist Licensed Mental Health 04/01/22 Prisca Miller MD 516 [facility] 295 [place] [address] Resident Neurology 02/10/23 Jennyfer Steele APRN SENIOR SOFTWARE ENGINEER [address] [place] [address] [address] [place] [address] Nurse Practitioner Psychiatry 02/23/23 Jennyfer Steele APRN SENIOR SOFTWARE ENGINEER [address] [place] [address] [address] [place] [address] Assigned Behavioral Health Provider 06/30/23 Sadaf Apple NP Assigned PCP 07/21/23 09/18/23 [facility] [address] [place] [address] Assigned PCP 09/19/23 Yamel Saha PA-C 420 [facility] 480 [place], [place] 046925 Assigned Cancer Care Provider 01/19/24 04/19/24 Luna Simons MD 420 [facility] 480 [place], [place] 816955 Assigned Cancer Care Provider 04/20/24 documented as of this encounter
--- OUTSIDE RECORDS SUMMARY | 2024-10-15 18:40 | XMS_ITS | Encounter Summary ---
Author Organization [facility] Address [address] [place] [address]50 Care Team Providers Care Office Equipment Technician Name Role Phone Cyndie Eisenberg NP Primary Care Provider + Rodney Natarajan MD Unavailable [phone] Luna Simons MD Unavailable +[phone] Caroline Duque RN Unavailable [phone] Martha White MD Unavailable [phone] Rodney Natarajan MD Unavailable +[phone] Ankita Park MD Unavailable [phone] Ankita Park MD Unavailable [phone] Luna Simons MD Unavailable +[phone] Jose Zaragoza NP Unavailable Mio Mclean MD Unavailable +[phone] Lnua Simons MD Unavailable +[phone] Nadja Hagen MD Unavailable [phone] Batool Atkinson PhD LP Unavailable [phone] Prisca Miller MD Unavailable [phone] Jennyfer Steele APRN DETAIL MAKER AND FITTER Unavailable +[phone] Jennyfer Steele APRN DETAIL MAKER AND FITTER Unavailable + 3 Sadaf Apple NP Unavailable Unavailable [facility] - [facility] Unavailabl e Yamel Saha PA-C Unavailable Luna Simons MD Unavailable [phone] Encounter Details Date Type Department Care Team (Late Contact Info) Description 12/25/2020 MyC Medical Advice [address] 5th [place] [address] Alise King RN Social History [...] [facility] Imaging [address] 2nd [place] [address] Luna Simons MD [address] [place] [address] [phone] 09/15/2025 10:00 AM CDT Oncology Visit [facility] [address] [place] [phone] Luna Simons MD [address] [place] [address] 962645 documented as of this encounter Visit Diagnoses Not on filedocumented in this encounter Additional Health Concerns Infection Onset Date Last Indicated Resolved Time Rule Out COVID-19 01/24/2023 01/24/2023 01/24/2023 10:32 PM CDT documented as of this encounter Care Teams Office Equipment Technician Relationship Specialty Start Date End Date Cyndie Eisenberg NP [address] [place] [address] PCP - General 09/25/19 Rodney Natarajan MD 420 [facility] 195 [place], [place] [address] General Surgery 09/25/19 Luna Simons MD 420 [facility] 480 [place], [place] 167615 Hematology 09/25/19 Caroline Duque, ASHLIE Specialty Wrestling Coach Breast Oncology 09/30/19 Martha White MD [address] [place], [place] [phone] rf test technician 11/01/19 Rodney Natarajan MD 420 [place] [facility] 195 [place], [place] 658165 Assigned Surgical Provider 03/20/20 08/07/21 Ankita Park MD Pending [facility] to [facility] [address] [address] Assigned Behavioral Health Provider 05/03/20 06/29/23 Ankita Park MD [facility]ending [facility] to [facility] [address] [phone] rf test technician 06/10/20 Luna Simons MD 420 [facility] 480 [place], [place] 066705 Assigned Cancer Care Provider 07/26/20 06/26/21 Jose Zaragoza, CHARGING CRANE OPERATOR [address] [facility] [place] 322175 Assigned Heart and Vascular Provider 11/08/20 02/04/22 Mio Mclean MD 420 [facility] 494 [place], [place] 807345 Assigned Cancer Care Provider 06/27/21 09/11/21 Luna Simons MD 420 [facility] 480 [place], [place] 866225 Assigned Cancer Care Provider 09/12/21 01/18/24 Nadja Hagen MD 2312 S [facility] Floor 2, [address] [place], [place] 8[address]314 Resident Psychiatry 04/01/22 05/13/24 Batool Atkinson, PhD LP [facility] [address] [place], [place] 792514 Psychologist Licensed Mental Health 04/01/22 Prisca Miller MD 6 [facility] 295 [place], [place] 235925 Resident Neurology 02/10/23 Jennyfer Steele, SLAG WHEELER DETAIL MAKER AND FITTER [address] [place] [address] [place], [place] 3075[address] Nurse Practitioner Psychiatry 02/23/23 Jennyfer Steele APRN [facility] [address] [place], [place] 5[address] Assigned Behavioral Health Provider 06/30/23 Sadaf Apple NP Assigned PCP 07/21/23 09/18/23 [facility] [address] [place] [address] Assigned PCP 09/19/23 Yamel Saha PA-C [address] [address] Assigned Cancer Care Provider 01/19/24 04/19/24 Luna Simons MD [address] 088315 Assigned Cancer Care Provider 04/20/24 documented as of this encounter
--- OUTSIDE RECORDS SUMMARY | 2024-10-15 18:40 | XMS_ITS | Encounter Summary ---
Author Organization [facility] Address [address] [place] [address] Care Team Providers Care Weed Science Research Technician Name Role Phone Cyndie Eisenberg NP Primary Care Provider + Rodney Natarajan MD Unavailable [phone] Luna Simons MD Unavailable Caroline Duque RN Unavailable [phone] Martha White MD Unavailable Pedrito Ramirez MD Unavailable +[phone] Rodney Natarajan MD Unavailable +[phone] Ankita Park MD Unavailable [phone] Ankita Park MD Unavailable [phone] Luna Simons MD Unavailable Jose Zaragoza NP Unavailable Mio Mclean MD Unavailable [phone] Luna Simons MD Unavailable Nadja Hagen MD Unavailable +[phone] Batool Atkinson PhD LP Unavailable +[phone] Prisca Miller MD Unavailable Jennyfer Steele APRN IMPROVEMENT COORDINATOR Unavailable +- IvetteJennyfer vaughan APRN IMPROVEMENT COORDINATOR Unavailable + Sadaf Apple NP Unavailable [facility] Unavail[facility] e Yamel Saha PA-C Unavailable [phone] Luna Simons MD Unavailable Reason for Visit * Reason Onset Date Comments Medication Request 09/12/2020 Cymbalta 80 m g Encounter Details Date Type Department Care Team (Late st Contact Info) Description 09/12/2020 MyC Medical Advice [facility] Mental Health & Addiction [place] [id number] [address] [address] Ankita Park MD [address] [address] Medication Request (Cymbalta 80 mg [...] possible, and send results to us via [employer] And CALL us for values over SBP 140 or DBP 90 Thx! Message text Will notify patient via [employer] documented in this encounter Plan of Treatment Upcoming Encounters Date Type Department Care Team (Late st Contact Info) Description 09/15/2025 9:15 AM CDT Ancillary Procedure [facility] Breast Center Imaging [place] 909 [facility] 2nd [place] [address] Luna Simons MD [address] [place] [address] 09/15/2025 10:00 AM CDT Oncology Visit [facility] 909 [place] [address] Luna Simons MD [address] [place] [address] [phone] documented as of this encounter Visit Diagnoses Diagnosis Anxiety- Primary Anxiety state, unspecified documented in this encounter Additional Health Concerns Infection Onset Date Last Indicated Resolved Time Rule Out COVID-19 01/24/2023 01/24/2023 01/24/2023 10:32 PM CDT documented as of this encounter Care Teams Weed Science Research Technician Relationship Specialty Start Date End Date Cyndie Eisenberg NP [address] [place] [address] PCP - General 09/25/19 Rodney Natarajan MD 420 [facility] 195 [place], [place] [address]395 General Surgery 09/25/19 Luna Simons MD 420 [facility] 480 [place], [place] 8[address]275 Hematology 09/25/19 Caroline Duque, ASHLIE Specialty Marker Delivery Breast Oncology 09/30/19 Martha White MD [address] [place] [address] [address] [place], [place] 498[address] racing car driver 11/01/19 Pedrito Ramirez MD 6405 [facility] [address] [place] [address] Assigned Heart and Vascular Provider 03/20/20 11/07/20 Rodney Natarajan MD 420 [facility] 195 [place] [address] Assigned Surgical Provider 03/20/20 08/07/21 Ankita Park MD [address] [place], [place] [address] [address] [place] [address] [phone] Assigned Behavioral Health Provider 05/03/20 06/29/23 Ankita Park MD 2450 [facility] [address] [place] [address], [place] [phone] racing car driver 06/10/20 Luna Simons MD 420 [facility] 480 [place] [address] Assigned Cancer Care Provider 07/26/20 06/26/21 Jose Zaragoza, WATCHGUARD [address] [facility] [place], [place] 9444[address] Assigned Heart and Vascular Provider 11/08/20 02/04/22 Mio Mclean MD 420 [facility] 494 [place], [place] 640165 Assigned Cancer Care Provider 06/27/21 09/11/21 Luna Simons MD 420 [facility] 480 [place], [place] 128215 Assigned Cancer Care Provider 09/12/21 01/18/24 Nadaj Hagen MD [address] Floor 2, [address] [place], [place] 6[address]84 Resident Psychiatry 04/01/22 05/13/24 Batool Atkinson, PhD LP 2450 [facility] [address] [place], [place] 127414 Psychologist Licensed Mental Health 04/01/22 Prisca Miller MD 516 [facility] 295 [place], [place] 384435 Resident Neurology 02/10/23 Jennyfer Steele APRN IMPROVEMENT COORDINATOR 2312 S [facility] [address]275 [place] [address] Nurse Practitioner Psychiatry 02/23/23 Jennyfer Steele APRN IMPROVEMENT COORDINATOR 2312 S [facility] [address] [place] [address] Assigned Behavioral Health Provider 06/30/23 Sadaf Apple NP Assigned PCP 07/21/23 09/18/23 [facility] [address] [place] [address] Assigned PCP 09/19/23 Yamel Saha PA-C 420 [facility] 480 [place], [place] 808495 Assigned Cancer Care Provider 01/19/24 04/19/24 Luna Simons MD 420 [facility] 480 [place], [place] 164425 Assigned Cancer Care Provider 04/20/24 documented as of this encounter
--- OUTSIDE RECORDS SUMMARY | 2024-10-15 18:40 | XMS_ITS | Encounter Summary ---
Author Organization [place] Address [address] [place] [address] Care Team Providers Care Break And Load Operator Name Role Phone Cyndie Eisenberg NP Primary Care Provider + Rodney Natarajan MD Unavailable [phone] Luna Simons MD Unavailable [phone] Caroline Duque RN Unavailable [phone] Martha White MD Unavailable [phone] Pedrito Ramirez MD Unavailable [phone] Rodney Natarajan MD Unavailable Ankita Park MD Unavailable [phone] Ankita Park MD Unavailable [phone] Luna Simons MD Unavailable Jose Zaragoza NP Unavailable +[phone] Mio Mclean MD Unavailable +[phone] Luna Simons MD Unavailable Nadja Hagen MD Unavailable +[phone] Batool Atkinson PhD LP Unavailable [phone] Prisca Miller MD Unavailable Jennyfer Steele APRN WEATHER STRIP INSTALLER Unavailable +- Jennyfer Steele Ravi BROWN WEATHER STRIP INSTALLER Unavailable + Sadaf Apple NP Unavailable Unavailable Clinic - [facility] Unavailabl e Yamel Saha PA-C Unavailable Luna Simons MD Unavailable Encounter Details Date Type Department Care Team (Late st Contact Info) Description 10/24/2020 MyC Medical Advice [facility] [address] [place] [address] Luna Simons MD [address] [place] [address] Social History Tobacco Use Types Packs/Day [...] Ancillary Procedure [facility] [place] [address] [place] [address] 2nd [place] [address] Luna Simons MD [address] [place] [address] 09/15/2025 10:00 AM CDT Oncology Visit [facility] [address] [place] [address] Luna Simons MD [address] [place] [address] [facility] 480 [place] [address] documented as of this encounter Visit Diagnoses Not on filedocumented in this encounter Additional Health Concerns Infection Onset Date Last Indicated Resolved Time Rule Out COVID-19 01/24/2023 01/24/2023 01/24/2023 10:32 PM CDT documented as of this encounter Care Teams Break And Load Operator Relationship Specialty Start Date End Date Cyndie Eisenberg PEARL DIGGER [address] [place] [address] PCP - General 09/25/19 Rodney Natarajan MD [address] [facility] 195 [place], [place] 304645 MD General Surgery 09/25/19 Luna Simons MD [address] [facility] 480 [place] [address] Hematology 09/25/19 Caroline Duque, RN Specialty Line Service Technician Breast Oncology 09/30/19 Martha White MD [address] [facility] [address] [place] [address] [place] [address] coverstitch elastic attacher 11/01/19 Pedrito Ramirez MD [address] [place] [address] [place] [address]25 Assigned Heart and Vascular Provider 03/20/20 11/07/20 Rodney Natarajan MD [address] [place] [address] [facility] 195 [place], [place] [address]505 Assigned Surgical Provider 03/20/20 08/07/21 Ankita Park MD [address] [address] Assigned Behavioral Health Provider 05/03/20 06/29/23 Ankita Park MD [facility] [address] [address] coverstitch elastic attacher 06/10/20 Luna Simons MD 420 [facility] 480 [place] [address] Assigned Cancer Care Provider 07/26/20 06/26/21 Jose Zaragoza PEARL DIGGER 6405 [place] [address] Assigned Heart and Vascular Provider 11/08/20 02/04/22 Mio Mclean MD 420 [facility] 494 [place] [address] Assigned Cancer Care Provider 06/27/21 09/11/21 Luna Simons MD [address] [id number] Assigned Cancer Care Provider 09/12/21 01/18/24 Nadja Hagen MD [address] Floor 2, [address] [place] [address] Resident Psychiatry 04/01/22 05/13/24 Batool Atkinson, PhD LP [address] [place], [place] 84[address]482 [place], [place] 38[address] Psychologist Licensed Mental Health 04/01/22 Prisca Miller MD 516 [facility] 295 [place], [place] 677525 Resident Neurology 02/10/23 Jennyfer Steele APRN WEATHER STRIP INSTALLER [address] [place] [address] 036554 Nurse Practitioner Psychiatry 02/23/23 Jennyfer Steele APRN WEATHER STRIP INSTALLER [address] [place] [address] 102554 Assigned Behavioral Health Provider 06/30/23 Sadaf Apple NP Assigned PCP 07/21/23 09/18/23 [facility] [address] [place] [address] Assigned PCP 09/19/23 Yamel Saha PA-C 420 [facility] 480 [place], [place] 891395 Assigned Cancer Care Provider 01/19/24 04/19/24 Luna Simons MD 420 [facility] 480 [place], [place] 719675 Assigned Cancer Care Provider 04/20/24 documented as of this encounter
--- OUTSIDE RECORDS SUMMARY | 2024-10-15 18:40 | XMS_ITS | Encounter Summary ---
Author Organization [place] Address [address] [place] [address] Care Team Providers Care Gas Meter Checker Name Role Phone Cyndie Eisenberg NP Primary Care Provider + Rodney Natarajan MD Unavailable Luna Simons MD Unavailable [phone] Caroline Duque RN Unavailable [phone] Martha White MD Unavailable Pedrito Ramirez MD Unavailable Rodney Natarajan MD Unavailable [phone] Ankita Park MD Unavailable [phone] Ankita Park MD Unavailable [phone] Luna Simons MD Unavailable Jose Zaragoza NP Unavailable Mio Mclean MD Unavailable [phone] Luna Simons MD Unavailable +[phone] Nadja Hagen MD Unavailable [phone] Batool Atkinson PhD LP Unavailable [phone] Prisca Miller MD Unavailable Jennyfer Steele APRN WEBSPHERE COMMERCE CONSULTANT Unavailable +- Jennyfer Steele CAMPUS SECURITY OFFICER WEBSPHERE COMMERCE CONSULTANT Unavailable + Sadaf Apple NP Unavailable Unavailable Clinic - [facility] Unavailabl e Yamel Saha PA-C Unavailable [phone] Luna Simons MD Unavailable Encounter Details Date Type Department Care Team (Late Contact Info) Description 08/24/2020 MyC Medical Advice [facility] Cancer [address] [address] Talita Bradshaw Social History Tobacco [...] Procedure [facility] [address] 2nd [place] [address] Luna Simons MD [address] [place] [address] 09/15/2025 10:00 AM CDT Oncology Visit [facility] Cancer [address] [address] Luna Simons MD [address] [place] [address] documented as of this encounter Visit Diagnoses Not on filedocumented in this encounter Additional Health Concerns Infection Onset Date Last Indicated Resolved Time Rule Out COVID-19 01/24/2023 01/24/2023 01/24/2023 10:32 PM CDT documented as of this encounter Care Teams Gas Meter Checker Relationship Specialty Start Date End Date Cyndie Eisenberg NP [address] [place] [address] PCP - General 09/25/19 Rodney Natarajan MD [address] [facility] 195 [place], [place] 946[address] General Surgery 09/25/19 Luna Simons MD [address] [facility] 480 [place], [place] 7[address]055 Hematology 09/25/19 Caroline Duque, RN Specialty Rail Grinder Breast Oncology 09/30/19 Martha White MD [address] [place] [address] [address] [place], [place] 710214 cutter helper 11/01/19 Pedrito Ramirez MD 6405 [facility] [address] [place] [address] Assigned Heart and Vascular Provider 03/20/20 11/07/20 Rodney Natarajan MD [address] [facility] 195 [place], [place] 906095 Assigned Surgical Provider 03/20/20 08/07/21 Ankita Park MD [facility] [place] [phone] Assigned Behavioral Health Provider 05/03/20 06/29/23 Ankita Park MD 2450 [facility] [address] [phone] cutter helper 06/10/20 Luna Simons MD 420 [facility] 480 [place], [place] 496635 Assigned Cancer Care Provider 07/26/20 06/26/21 Jose Zaragoza NP [address] [facility] [place] [address] Assigned Heart and Vascular Provider 11/08/20 02/04/22 Mio Mclean MD 420 [facility] 494 [place], [place] 642705 Assigned Cancer Care Provider 06/27/21 09/11/21 Luna Simons MD 420 [facility] 480 [place] [address] Assigned Cancer Care Provider 09/12/21 01/18/24 Nadja Hagen MD [address] Floor 2, [address] [place], [place] 58[address]24 Resident Psychiatry 04/01/22 05/13/24 Batool Atkinson, PhD LP [address] [place] [address] [address] [place], [place] 9364[address] Psychologist Licensed Mental Health 04/01/22 Prisca Miller MD 516 [facility] 295 [place] [address] Resident Neurology 02/10/23 Jennyfer Steele APRN WEBSPHERE COMMERCE CONSULTANT [address] [place] [address] [address] [place] [address] Nurse Practitioner Psychiatry 02/23/23 Jennyfer Steele APRN WEBSPHERE COMMERCE CONSULTANT [address] [place] [address] [address] [place] [address] Assigned Behavioral Health Provider 06/30/23 Sadaf Apple NP Assigned PCP 07/21/23 09/18/23 [facility] [address] [place] [address] Assigned PCP 09/19/23 Yamel Saha PA-C 420 [facility] 480 [place], [place] 319675 Assigned Cancer Care Provider 01/19/24 04/19/24 Luna Simons MD 420 [facility] 480 [place], [place] 179555 Assigned Cancer Care Provider 04/20/24 documented as of this encounter
--- OUTSIDE RECORDS SUMMARY | 2024-10-15 18:40 | XMS_ITS | Encounter Summary ---
Author Organization [place] Address [address] [place] [address] Care Team Providers Care Brim Curler Name Role Phone Cyndie Eisenberg NP Primary Care Provider + Rodney Natarajan MD Unavailable [phone] Luna Simons MD Unavailable [phone] Caroline Duque RN Unavailable [phone] Martha White MD Unavailable [phone] Ankita Park MD Unavailable [phone] Ankita Park MD Unavailable [phone] Luna Simons MD Unavailable [phone] Najda Hagen MD Unavailable [phone] Batool Atkinson PhD LP Unavailable [phone] Prisca Miller MD Unavailable [phone] Jennyfer Steele APRN COORDINATOR OF EVALUATION Unavailable +[phone] Jennyfer Steele APRN COORDINATOR OF EVALUATION Unavailable + 3 Sadaf Apple NP Unavailable Unavailable [facility] Unavailabl e Yamel Saha PA-C Unavailable +[phone] Luna Simons MD Unavailable +[phone] Encounter Details Date Type Department Care Team (Late st Contact Info) Description 01/16/2023 MyC Medical Advice [facility] Mental Health & Addiction [place] [id number] [address] [place] [address] [phone] Talita Bradshaw Social History Tobacco Use Types [...] Description 09/15/2025 9:15 AM CDT Ancillary Procedure [facility] Imaging [address] 2nd [place] [phone] Luna Simons MD [address] [place] [address] 09/15/2025 10:00 AM CDT Oncology Visit [facility] [address] [place] [phone] Luna Simons MD [address] [place] [address] 604895 documented as of this encounter Visit Diagnoses Not on filedocumented in this encounter Additional Health Concerns Infection Onset Date Last Indicated Resolved Time Rule Out COVID-19 01/24/2023 01/24/2023 01/24/2023 10:32 PM CDT Assessment Noted Time PHQ-9 Depression Total Score: 22 022 3:25 PM [employer] documented as of this encounter Care Teams Brim Curler Relationship Specialty Start Date End Date Cyndie Eisenberg NP [address] [place] [address] PCP - General 09/25/19 Rodney Natarajan MD 420 [facility] 195 [place], [place] 600695 General Surgery 09/25/19 Luna Simons MD 420 [facility] 480 [place], [place] 895485 MD Hematology 09/25/19 Caroline Duque, ASHLIE Specialty Ultrasound Supervisor Breast Oncology 09/30/19 Martha White MD 2312 S [facility] [place] [address] [place], [place] 383[address] home care manager 11/01/19 Ankita Park MD [address] [place] [phone] Assigned Behavioral Health Provider 05/03/20 06/29/23 Ankita Park MD [address] [place] [address] home care manager 06/10/20 Luna Simons MD [address] [place] [address] 480 [place], [place] 025715 Assigned Cancer Care Provider 09/12/21 01/18/24 Nadja Hagen MD 2312 [facility] Floor 2, [address] [place], [place] [address] Resident Psychiatry 04/01/22 05/13/24 Batool Atkinson, PhD LP 2450 [facility] [address] [place] [address] Psychologist Licensed Mental Health 04/01/22 Prisca Miller MD 516 [facility] 295 [place] [address] Resident Neurology 02/10/23 Jennyfer Steele APRN COORDINATOR OF EVALUATION [address] [place] [address] [address]275 [place] [address] Nurse Practitioner Psychiatry 02/23/23 Jennyfer Steele APRN COORDINATOR OF EVALUATION [address] [place] [address] [address] [place] [address] Assigned Behavioral Health Provider 06/30/23 Sadaf Apple NP Assigned PCP 07/21/23 09/18/23 [facility] [address] [place] [address] Assigned PCP 09/19/23 Yamel Saha PA-C 420 [facility] 480 [place], [place] 210205 Assigned Cancer Care Provider 01/19/24 04/19/24 Luna Simons MD 420 [facility] 480 [place], [place] 249135 Assigned Cancer Care Provider 04/20/24 documented as of this encounter
--- OUTSIDE RECORDS SUMMARY | 2024-10-15 18:40 | XMS_ITS | Encounter Summary ---
Author Organization [place] Address [address] [place] [address] Care Team Providers Care Staying Machine Operator Name Role Phone Cyndie Eisenberg NP Primary Care Provider + Rodney Natarajan MD Unavailable [phone] Luna Simons MD Unavailable [phone] Caroline Duque RN Unavailable [phone] Martha White MD Unavailable +[phone] Ankita Park MD Unavailable [phone] Ankita Park MD Unavailable [phone] Luna Simons MD Unavailable +[phone] Nadja Hagen MD Unavailable +[phone] Batool Atkinson PhD LP Unavailable +[phone] Prisca Miller MD Unavailable [phone] Jennyfer Steele APRN FRUIT HARVESTER MACHINE OPERATOR Unavailable +[phone] Jennyfer Steele APRN FRUIT HARVESTER MACHINE OPERATOR Unavailable + 3 Sadaf Apple NP Unavailable Unavailable [facility] Unavailabl e Yamel Saha PA-C Unavailable +[phone] Luna Simons MD Unavailable +[phone] Encounter Details Date Type Department Care Team (Late st Contact Info) Description 02/02/2023 MyC Medical Advice [address] [address] Lani Mahajan Social History Tobacco [...] Procedure [facility] Imaging [address] 2nd [place] [address] Luna Simons MD [address] [place] [address] 262265 09/15/2025 10:00 AM CDT Oncology [facility] [address] [place] [address] Luna Simons MD [address] [place] [address] 803925 documented as of this encounter Visit Diagnoses Not on filedocumented in this encounter Additional Health Concerns Assessment Noted Time PHQ-9 Depression Total Score: 22 022 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 documented as of this encounter Care Teams Staying Machine Operator Relationship Specialty Start Date End Date Cyndie Eisenberg NP [address] [place] [address] PCP - General 09/25/19 Rodney Natarajan MD 420 [facility] 195 [place] [address] General Surgery 09/25/19 Luna Simons MD 420 [facility] 480 [place] [address] MD Hematology 09/25/19 Caroline Duque, ASHLIE Specialty Dog Daycare Provider Breast Oncology 09/30/19 Martha White MD [address] [place] [address] [place] [address] rim technician 11/01/19 Ankita Park MD [address] [place] [phone] Assigned Behavioral Health Provider 05/03/20 06/29/23 Ankita Park MD [address] [place] [address] rim technician 06/10/20 Luna Simons MD 420 [facility] 480 [place] [address] Assigned Cancer Care Provider 09/12/21 01/18/24 Nadja Hagen MD [address] Floor 2, [address] [place] [address] Resident Psychiatry 04/01/22 05/13/24 Batool Atkinson, PhD LP 2450 [facility] [address] [place], [place] 270774 Psychologist Licensed Mental Health 04/01/22 Prisca Miller MD 516 [facility] SE [facility] 295 [place] [address] Resident Neurology 02/10/23 Jennyfer Steele APRN FRUIT HARVESTER MACHINE OPERATOR 2312 S [facility] [place] [address] [place] [address] Nurse Practitioner Psychiatry 02/23/23 Jennyfer Steele APRN FRUIT HARVESTER MACHINE OPERATOR 2312 S [facility] [address] [place] [address] Assigned Behavioral Health Provider 06/30/23 Sadaf Apple NP Assigned PCP 07/21/23 09/18/23 [facility] [address] [place] [address] Assigned PCP 09/19/23 Yamel Saha PA-C 420 [facility] 480 [place] [address] Assigned Cancer Care Provider 01/19/24 04/19/24 Luna Simons MD 420 [facility] 480 [place], [place] 882265 Assigned Cancer Care Provider 04/20/24 documented as of this encounter
--- OUTSIDE RECORDS SUMMARY | 2024-10-15 18:40 | XMS_ITS | Encounter Summary ---
Author Organization [place] Address [address] [place] [address] Care Team Providers Care Undercutter Operator Name Role Phone Cyndie Eisenberg NP Primary Care Provider + Rodney Natarajan MD Unavailable [phone] Luna Simons MD Unavailable [phone] Caroline Duque RN Unavailable [phone] Martha White MD Unavailable +[phone] Ankita Park MD Unavailable [phone] Ankita Park MD Unavailable [phone] Luna Simons MD Unavailable +[phone] Nadja Hagen MD Unavailable +[phone] Batool Atkinson PhD LP Unavailable +[phone] Prisca Miller MD Unavailable +[phone] Jennyfer Steele APRN SENIOR DIRECTOR Unavailable +[phone] Jennyfer Steele APRN SENIOR DIRECTOR Unavailable + 3 Sadaf Apple NP Unavailable Unavailable [facility] Unavailabl e Yamel Saha PA-C Unavailable +[phone] Luna Simons MD Unavailable +[phone] Encounter Details Date Type Department Care Team (Late st Contact Info) Description 10/12/2022 [facility] Medical Advice [facility] Mental Health & Addiction [place] [id number] [address] [address] Talita Bradshaw Encounter for smoking [...] Park MD Moccio, Emily, ASHLIE; P Psychiatry Nurse-[facility] I am feeling cautious about an increase [...] Description 09/15/2025 9:15 AM CDT Ancillary Procedure [facility] Imaging [address] 2nd [place] [address] Luna Simons MD [address] [place] [address] 485135 09/15/2025 10:00 AM CDT Oncology Visit [facility] [address] [place] [phone] Luna Simons MD [address] [place] [address] 904345 documented as of this encounter Visit Diagnoses Diagnosis Encounter for smoking cessation counseling Counseling on substance use and abuse documented in this encounter Additional Health Concerns Infection Onset Date Last Indicated Resolved Time Rule Out COVID-19 01/24/2023 01/24/2023 01/24/2023 10:32 PM CDT Assessment Noted Time PHQ-9 Depression Total Score: 22 022 3:25 PM 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 BALL 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 documented as of this encounter Care Teams Undercutter Operator Relationship Specialty Start Date End Date Cyndie Eisenberg, FAMILY MEDICINE CHAIR [address] [place] [address] PCP - General 09/25/19 Rodney Natarajan MD 420 [facility] 195 [place], [place] 442785 MD General Surgery 09/25/19 Luna Simons MD 420 [facility] 480 [place] [address] Hematology 09/25/19 Caroline Duque, RN Specialty Template Cutter Breast Oncology 09/30/19 Martha White MD [address] [place] [address] [address] [place], [place] 740694 county director welfare 11/01/19 Ankita Park MD [facility] [place] [address] Assigned Behavioral Health Provider 05/03/20 06/29/23 Ankita Park MD [facility] [place] [phone] county director welfare 06/10/20 Luna Simons MD 420 [facility] 480 [place], [place] 720[address] Assigned Cancer Care Provider 09/12/21 01/18/24 Nadja Hagen MD [facility] [address] Floor 2, [address] [place], [place] 5[address] Resident Psychiatry 04/01/22 05/13/24 Batool Atkinson, PhD LP [address] [place] [address] [address] [place] [address] Psychologist Licensed Mental Health 04/01/22 Prisca Miller MD 516 [facility] 295 [place], [place] 515905 Resident Neurology 02/10/23 Jennyfer Steele APRN SENIOR DIRECTOR 2312 [address] [facility] [place] [address] [place], [place] 9[address]194 Nurse Practitioner Psychiatry 02/23/23 Jennyfer Steele APRN SENIOR DIRECTOR [facility] [address] [place] [address] [place], [place] 417[address] Assigned Behavioral Health Provider 06/30/23 Sadaf Apple NP Assigned PCP 07/21/23 09/18/23 [facility] [address] [place] [address] 8217644 Assigned PCP 09/19/23 Yamel Saha PA-C 420 [facility] 480 [place], [place] 9[address]655 Assigned Cancer Care Provider 01/19/24 04/19/24 Luna Simons MD [address] [place] [address] Assigned Cancer Care Provider 04/20/24 documented as of this encounter
--- OUTSIDE RECORDS SUMMARY | 2024-10-15 18:40 | XMS_ITS | Encounter Summary ---
Author Organization [place] Address [address] [place] [address] Care Team Providers Care Behavioral Consultant Name Role Phone Cyndie Eisenberg NP Primary Care Provider + Rodney Natarajan MD Unavailable [phone] Luna Simons MD Unavailable [phone] Caroline Duque RN Unavailable [phone] Martha White MD Unavailable [phone] Ankita Park MD Unavailable [phone] Anktia Park MD Unavailable +[phone] Luna Simons MD Unavailable +[phone] Nadja Hagen MD Unavailable +[phone] Batool Atkinson PhD LP Unavailable +[phone] Prisca Miller MD Unavailable +[phone] Jennyfer Steele APRN BLUEPRINT READER Unavailable +[phone] Jennyfer Steele APRN BLUEPRINT READER Unavailable + [phone] Sadaf Apple NP Unavailable Unavailable [facility] Unavailabl e Yamel Saha PA-C Unavailable +[phone] Luna Simons MD Unavailable +[phone] Encounter Details Date Type Department Care Team (Late st Contact Info) Description 03/03/2023 MyC Medical Advice [address] [address] Lani Mahajan Social History Tobacco [...] [facility] Breast Center Imaging [address] 2nd [place] [address] Luna Simons MD [address] [place] [address] [phone] 09/15/2025 10:00 AM CDT [facility] [address] [place] [address] Luna Simons MD [address] [place] [address] 295745 documented as of this encounter Visit Diagnoses Not on filedocumented in this encounter Additional Health Concerns Assessment Noted Time PHQ-9 Depression Total Score: 22 022 3:25 PM COLOR TESTER documented as of this encounter Care Teams Behavioral Consultant Relationship Specialty Start Date End Date Cyndie Eisenberg NP [address] [place] [address] PCP - General 09/25/19 Rodney Natarajan MD 420 [facility] 195 [place] [address] General Surgery 09/25/19 Luna Simons MD 420 [facility] 480 [place] [address] MD Hematology 09/25/19 Caroline Duque, ASHLIE Specialty Technical Lead Breast Oncology 09/30/19 Martha White MD [address] [place] [address] [place], [place] 410554 pie baker 11/01/19 Ankita Park MD [address] [place] [phone] Assigned Behavioral Health Provider 05/03/20 06/29/23 Ankita Park MD [address] [place] [phone] pie baker 06/10/20 Luna Simons MD 420 [facility] 480 [place], [place] 036675 Assigned Cancer Care Provider 09/12/21 01/18/24 Nadja Hagen MD [address] Floor 2, [address] [place], [place] 8[address]64 Resident Psychiatry 04/01/22 05/13/24 Batool Atkinson, PhD LP 2450 [facility] F282 [place] [address] Psychologist Licensed Mental Health 04/01/22 Prisca Miller MD 516 [facility] 295 [place], [place] 081465 Resident Neurology 02/10/23 Jennyfer Steele APRN BLUEPRINT READER [address] [place] [address] Nurse Practitioner Psychiatry 02/23/23 Jennyfer Steele APRN BLUEPRINT READER [facility] [address] [place] [address] Assigned Behavioral Health Provider 06/30/23 Sadaf Apple NP Assigned PCP 07/21/23 09/18/23 [facility] [address] [place] [address] Assigned PCP 09/19/23 Yamel Saha PA-C 420 [facility] 480 [place], [place] 548507 Assigned Cancer Care Provider 01/19/24 04/19/24 Luna Simons MD 420 [facility] 480 [place] [address] Assigned Cancer Care Provider 04/20/24 documented as of this encounter
--- OUTSIDE RECORDS SUMMARY | 2024-10-15 18:40 | XMS_ITS | Encounter Summary ---
Author Organization [facility] Address [address] [place] [address]39 Care Team Providers Care Tile Fitter Name Role Phone Cyndie Eisenberg NP Primary Care Provider + Rodney Natarajan MD Unavailable [phone] Luna Simons MD Unavailable Caroline Duque RN Unavailable [phone] Martha White MD Unavailable [phone] Rodney Natarajan MD Unavailable [phone] Ankita Park MD Unavailable [phone] Ankita Park MD Unavailable [phone] Luna Simons MD Unavailable Jose Zaragoza NP Unavailable Mio Mclean MD Unavailable [phone] Luna Simons MD Unavailable Nadja Hagen MD Unavailable [phone] Batool Atkinson PhD LP Unavailable [phone] Prisca Miller MD Unavailable [phone] Jennyfer Steele APRN AUTOMOTIVE TECHNICIAN INSTRUCTOR Unavailable +[phone] Jennyfer Steele APRN AUTOMOTIVE TECHNICIAN INSTRUCTOR Unavailable + 3 Sadaf Apple NP Unavailable Unavailable Clinic - [facility] Unavailabl e Yamel Saha PA-C Unavailable [phone] Luna Simons MD Unavailable [phone] Encounter Details Date Type Department Care Team (Late Contact Info) Description 03/29/2021 MyC Medical Advice [facility] Mental Health & Addiction [place] [phone] [phone] [facility] Social History Tobacco Use Types Packs/Day [...] AM CDT Ancillary Procedure [facility] Breast Center Imaging [address] 2nd [place] [address] Luna Simons MD [address] [place] [address] 672815 09/15/2025 10:00 AM CDT Oncology Visit [facility] [address] [place] [address] Luna Simons MD [address] [place] [address] 480 [place], [place] 258535 documented as of this encounter Visit Diagnoses Not on filedocumented in this encounter Additional Health Concerns Infection Onset Date Last Indicated Resolved Time Rule Out COVID-19 01/24/2023 01/24/2023 01/24/2023 10:32 PM CDT documented as of this encounter Care Teams Tile Fitter Relationship Specialty Start Date End Date Cyndie Eisenberg NP [address] [place] [address] PCP - General 09/25/19 Rodney Natarajan MD 420 [facility] 195 [place], [place] 390305 General Surgery 09/25/19 Luna Simons MD 420 [facility] 480 [place], [place] 824965 Hematology 09/25/19 Caroline Duque, ASHLIE Specialty Chief Fundraising Officer Breast Oncology 09/30/19 Martha White MD [address] [place] [address] [address] [place], [place] 431104 wildland fire operations specialist 11/01/19 Rodney Natarajan MD 420 [facility] 195 [place], [place] 489225 Assigned Surgical Provider 03/20/20 08/07/21 Ankita Park MD [facility] [address] [address] Assigned Behavioral Health Provider 05/03/20 06/29/23 Ankita Park MD [facility] [address] [phone] wildland fire operations specialist 06/10/20 Luna Simons MD 420 [facility] 480 [place], [place] 746185 Assigned Cancer Care Provider 07/26/20 06/26/21 Jose Zaragoza, LEVEL VIAL INSIDE GRINDER 6405 [facility] [place] 315745 Assigned Heart and Vascular Provider 11/08/20 02/04/22 Mio Mclean MD 420 [facility] 494 [place], [place] 582025 Assigned Cancer Care Provider 06/27/21 09/11/21 Luna Simons MD 420 [facility] 480 [place], [place] 297035 Assigned Cancer Care Provider 09/12/21 01/18/24 Nadja Hagen MD [facility] Floor 2, [address] [place], [place] 99[address] Resident Psychiatry 04/01/22 05/13/24 Batool Atkinson, PhD LP [facility] [address] [place], [place] 567164 Psychologist Licensed Mental Health 04/01/22 Prisca Miller MD 516 [facility] 295 [place], [place] 867415 Resident Neurology 02/10/23 Jennyfer Steele, OSTOMY RN AUTOMOTIVE TECHNICIAN INSTRUCTOR [address] [place] [address] [place] [address] Nurse Practitioner Psychiatry 02/23/23 Jennyfer Steele APRN [facility] [address] [place] [address] Assigned Behavioral Health Provider 06/30/23 Sadaf Apple NP Assigned PCP 07/21/23 09/18/23 [facility] [address] [place] [address] Assigned PCP 09/19/23 Yamel Saha PA-C 420 [facility] 480 [place], [place] 498895 Assigned Cancer Care Provider 01/19/24 04/19/24 Luna Simons MD 420 [facility] 480 [place], [place] 152085 Assigned Cancer Care Provider 04/20/24 documented as of this encounter
--- OUTSIDE RECORDS SUMMARY | 2024-10-15 18:40 | XMS_ITS | Encounter Summary ---
Author Organization [facility] Address [address] [place] [address] Care Team Providers Care Certified Legal Investigator Name Role Phone Cyndie Eisenberg NP Primary Care Provider + Rodney Natarajan MD Unavailable [phone] Luna Simons MD Unavailable [phone] Caroline Duque RN Unavailable [phone] Martha White MD Unavailable [phone] Ankita Park MD Unavailable +[phone] Ankita Park MD Unavailable [phone] Luna Simons MD Unavailable +[phone] Nadja Hagen MD Unavailable [phone] Batool Atkinson PhD LP Unavailable [phone] Prisca Miller MD Unavailable [phone] Jennyfer Steele APRN HOST Unavailable +[phone] Jennyfer Steele APRN HOST Unavailable + [phone] Sadaf Apple NP Unavailable Unavailable [facility] Unavailabl e Yamel Saha PA-C Unavailable [phone] Luna Simons MD Unavailable [phone] Encounter Details Date Type Department Care Team (Late st Contact Info) Description 02/03/2023 MyC Medical Advice [facility] Mental Health & Addiction [address] [phone] Ankita Park MD [address] [place] [address] Social History Tobacco Use Types [...] [facility] Imaging [address] 2nd [place] [phone] Luna Simons MD [address] [place] [address] 045955 09/15/2025 10:00 AM CDT [facility] [address] [place] [address] Luna Simons MD [address] [place] [address] 480435 documented as of this encounter Visit Diagnoses Not on filedocumented in this encounter Additional Health Concerns Assessment Noted Time PHQ-9 Depression Total Score: 22 022 3:25 PM LAB ENGINEER documented as of this encounter Care Teams Certified Legal Investigator Relationship Specialty Start Date End Date Cyndie Eisenberg NP [address] [place] [address] PCP - General 09/25/19 Rodney Natarajan MD 420 [facility] 195 [place], [place] 589215 General Surgery 09/25/19 Luna Simons MD 420 [facility] SE [facility] 480 [place], [place] 609215 Hematology 09/25/19 Caroline Duque, RN Specialty Log Brander Breast Oncology 09/30/19 Martha White MD 2312 S [facility] [address] [place], [place] 330254 music journalist 11/01/19 Ankita Park MD [address] [place] [address] Assigned Behavioral Health Provider 05/03/20 06/29/23 Ankita Park MD [address] [place] [address] music journalist 06/10/20 Luna Simons MD 420 [facility] SE [facility] 480 [place], [place] 897515 Assigned Cancer Care Provider 09/12/21 01/18/24 Nadja Hagen MD [address] Floor 2, [address] [place] [address] Resident Psychiatry 04/01/22 05/13/24 Batool Atkinson, PhD LP [address] [place] [address] F282 [place], [place] 453704 Psychologist Licensed Mental Health 04/01/22 Prisca Miller MD 6 [facility] 295 [place], [place] 041825 Resident Neurology 02/10/23 Jennyfer Steele APRN HOST [facility] [address] [place], [place] [address]454 Nurse Practitioner Psychiatry 02/23/23 Jennyfer Steele APRN HOST [address] [place] [address] [address]275 [place] [address] Assigned Behavioral Health Provider 06/30/23 Sadaf Apple NP Assigned PCP 07/21/23 09/18/23 [facility] [address] [place] [address] 6455344 Assigned PCP 09/19/23 Yamel Saha PA-C 420 [facility] 480 [place], [place] 507575 Assigned Cancer Care Provider 01/19/24 04/19/24 Luna Simons MD 420 [facility] 480 [place], [place] 108735 Assigned Cancer Care Provider 04/20/24 documented as of this encounter
--- OUTSIDE RECORDS SUMMARY | 2024-10-15 18:41 | XMS_ITS | Encounter Summary ---
Author Organization [facility] Address [address] [place] [address]59 Care Team Providers Care Invasive Manager Name Role Phone Cyndie Eisenberg NP Primary Care Provider + Rodney Natarajan MD Unavailable [phone] Luna Simons MD Unavailable Caroline Duque RN Unavailable [phone] Martha White MD Unavailable Pedrito Ramirez MD Unavailable Rodney Natarajan MD Unavailable [phone] Luna Simons MD Unavailable Martha White MD Unavailable Mio Mclean MD Unavailable Ankita Park MD Unavailable [phone] Ankita Park MD Unavailable [phone] Mio Mclean MD Unavailable [phone] Luna Simons MD Unavailable Luna Simons MD Unavailable Jose Zaragoza NP Unavailable Mio Mclean MD Unavailable [phone] Luna Simons MD Unavailable [phone] Nadja Hagen MD Unavailable +[phone] Batool Atkinson PhD LP Unavailable [phone] Prisca Miller MD Unavailable [phone] Jennyfer Steele APRN HALF SECTION IRONER Unavailable + Jennyfer Steele APRN HALF SECTION IRONER Unavailable + Sadaf Apple NP Unavailable Unavailable Clinic - [facility] Unavailabl e Yamel Saha PA-C Unavailable [phone] Luna Simons MD Unavailable [phone] Encounter Details Date Type Department Care Team (Late st Contact Info) Description 02/05/2020 MyC Medical Advice [facility] Mental Health & Addiction [place] [id number] [address] [address] Ankita Park MD [address] [phone] Anxiety (Primary Dx) Social History [...] 02/10/2020 9:06 AM CDT Next appointment 03/31. Kennel Assistant e-prescribed 90-day supply to [facility] ([phone]). Qty 90, refills 0. Routed message to pt via [employer]unch. documented in this encounter Plan of Treatment Upcoming Encounters Date Type Department Care Team (Late st Contact Info) Description 09/15/2025 9:15 AM CDT Ancillary Procedure [facility] Breast Center Imaging [address] 2nd [place] [phone] Luna Simons MD 420 [facility] 480 [place], [place] 014095 09/15/2025 10:00 AM CDT Oncology Visit [facility] [address] [place] [address] Luna Simons MD [address] [place] [address] [phone] documented as of this encounter Visit Diagnoses Diagnosis Anxiety- Primary Anxiety state, unspecified documented in this encounter Additional Health Concerns Infection Onset Date Last Indicated Resolved Time Rule Out COVID-19 01/24/2023 01/24/2023 01/24/2023 10:32 PM CDT documented as of this encounter Care Teams Invasive Manager Relationship Specialty Start Date End Date Cyndie Eisenberg NP [address] [place] [address] PCP - General 09/25/19 Rodney Natarajan MD [address] [place] [address] 195 [place], [place] 120025 General Surgery 09/25/19 Luna Simons MD [address] [place] [address] 480 [place], [place] 709575 Hematology 09/25/19 Caroline Duque, RN Specialty Energy Economist Breast Oncology 09/30/19 Martha White MD [address] [place] [address] [address] [place] [address] supervisor winter 11/01/19 Pedrito Ramirez MD 6405 [facility] [address]200 [place], [place] 236065 Assigned Heart and Vascular Provider 03/20/20 11/07/20 Rodney Natarajan MD 420 [facility] 195 [place], [place] 725485 Assigned Surgical Provider 03/20/20 08/07/21 Luna Simons MD 420 [facility] 480 [place], [place] 549315 Assigned Cancer Care Provider 03/20/20 04/11/20 Martha White MD [address] [place] [address] 511984 Assigned Behavioral Health Provider 03/20/20 05/02/20 Mio Mclean MD 420 [facility] 494 [place], [place] 724105 Assigned Cancer Care Provider 04/12/20 04/21/20 Ankita Park MD 2450 [facility] [place] [phone] Assigned Behavioral Health Provider 05/03/20 06/29/23 Ankita Park MD [address] [place] [address] supervisor winter 06/10/20 Mio Mclean MD 420 [facility] 494 [place] [address] Assigned Cancer Care Provider 05/10/20 07/25/20 Luna Simons MD 420 [facility] 480 [place] [address] Assigned Cancer Care Provider 04/22/20 05/09/20 Luna Simons MD [address] [facility] 480 [place], [place] 949635 Assigned Cancer Care Provider 07/26/20 06/26/21 Jose Zaragoza PREPRESS STRIPPER 6405 [facility] [place], [place] 459585 Assigned Heart and Vascular Provider 11/08/20 02/04/22 Mio Mclean MD 420 [facility] [facility] 494 [place] [address] Assigned Cancer Care Provider 06/27/21 09/11/21 Luna Simons MD [address] [facility] 480 [place], [place] 757585 Assigned Cancer Care Provider 09/12/21 01/18/24 Nadja Hagen MD [address] Floor 2, [address] [place], [place] 488884 Resident Psychiatry 04/01/22 05/13/24 Batool Atkinson, PhD LP 2450 [facility] [address]282 [place] [address] Psychologist Licensed Mental Health 04/01/22 Prisca Miller MD 516 [facility] 295 [place], [place] 102925 Resident Neurology 02/10/23 Jennyfer Steele APRN HALF SECTION IRONER [address] [place] [address] F275 [place] [address] Nurse Practitioner Psychiatry 02/23/23 Jennyfer Steele APRN HALF SECTION IRONER [facility] [address] [place] [address] Assigned Behavioral Health Provider 06/30/23 Sadaf Apple NP Assigned PCP 07/21/23 09/18/23 [facility] [address] [place] [address] Assigned PCP 09/19/23 Yamel Saha PA-C 420 [facility] 480 [place], [place] 627375 Assigned Cancer Care Provider 01/19/24 04/19/24 Luna Simons MD 420 [facility] 480 [place] [address] Assigned Cancer Care Provider 04/20/24 documented as of this encounter
--- OUTSIDE RECORDS SUMMARY | 2024-10-15 18:41 | XMS_ITS | Encounter Summary ---
Author Organization [place] Address [address] [place] [address] 61877 Care Team Providers Care Assisted Sales Representative Name Role Phone Cyndie Eisenberg NP Primary Care Provider + Rodney Natarajan MD Unavailable [phone] Luna Simons MD Unavailable [phone] Caroline Duque RN Unavailable [phone] Martha White MD Unavailable Pedrito Ramirez MD Unavailable [phone] Rodney Natarajan MD Unavailable [phone] Luna Simons MD Unavailable Martha White MD Unavailable Mio Mclean MD Unavailable [phone] Ankita Park MD Unavailable [phone] Ankita Park MD Unavailable [phone] Mio Mclean MD Unavailable [phone] Luna Simons MD Unavailable [phone] Luna Simons MD Unavailable [phone] Jose Zaragoza NP Unavailable [phone] Mio Mclean MD Unavailable [phone] Luna Simons MD Unavailable [phone] Nadja Hagen MD Unavailable [phone] Batool Atkinson PhD LP Unavailable [phone] Prisca Miller MD Unavailable [phone] Jennyfer Steele CASING PULLER AIRCRAFT STRESS ANALYST Unavailable + IvetteJennyfer APRN AIRCRAFT STRESS ANALYST Unavailable + Sadaf Apple NP Unavailable Unavailable [facility] - [facility] Unavailabl e Yamel Saha PA-C Unavailable +[phone] Luna Simons MD Unavailable [phone] Encounter Details Date Type Department Care Team (Late st Contact Info) Description 11/26/2019 MyC Medical Advice [facility] [address] [place] [address] Luna Simons MD [address] [place] [address] Social History Tobacco Use Types Packs/Day [...] Ancillary Procedure [facility] Breast Center Imaging [place] [address] [place] [address] 2nd [place] [address] Luna Simons MD [address] [place] [address] 09/15/2025 10:00 AM CDT Oncology Visit [facility] 909 [place] [phone] Luna Simons MD 420 [facility] 480 [place] [address] documented as of this encounter Visit Diagnoses Not on filedocumented in this encounter Additional Health Concerns Infection Onset Date Last Indicated Resolved Time Rule Out COVID-19 01/24/2023 01/24/2023 01/24/2023 10:32 PM CDT documented as of this encounter Care Teams Assisted Sales Representative Relationship Specialty Start Date End Date Cyndie Eisenberg MANUFACTURING OPERATOR [address] [place] [address] PCP - General 09/25/19 Rodney Natarajan MD 420 [facility] 195 [place] [address] General Surgery 09/25/19 Luna Simons MD [address] [place] [address] 480 [place] [address] Hematology 09/25/19 Caroline Duque, RN Specialty Sample Stitcher Breast Oncology 09/30/19 Martha White MD [address] [place] [address] [place], [place] 498[address] kier pleater 11/01/19 Pedrito Ramirez MD [address] [place] [address] [place] [address] Assigned Heart and Vascular Provider 03/20/20 11/07/20 Rodney Natarajan MD [address] [facility] 195 [place] [address] Assigned Surgical Provider 03/20/20 08/07/21 Luna Simons MD [address] [place] [facility] 480 [place] [address] Assigned Cancer Care Provider 03/20/20 04/11/20 Martha White MD [address] [place] [address] [address] [place], [place] 989604 Assigned Behavioral Health Provider 03/20/20 05/02/20 Mio Mclean MD 420 [facility] 494 [place] [address] Assigned Cancer Care Provider 04/12/20 04/21/20 Ankita Park MD [address] [address] Assigned Behavioral Health Provider 05/03/20 06/29/23 Ankita Park MD [address] [phone] kier pleater 06/10/20 Mio Mclean MD 420 [facility] 494 [place] [address] Assigned Cancer Care Provider 05/10/20 07/25/20 Luna Simons MD [address] [facility] 480 [place] [address] Assigned Cancer Care Provider 04/22/20 05/09/20 Luna Simons MD 420 [facility] 480 [place], [place] 736495 Assigned Cancer Care Provider 07/26/20 06/26/21 Jose Zaragoza, MANUFACTURING OPERATOR 6405 [facility] [place] 127055 Assigned Heart and Vascular Provider 11/08/20 02/04/22 Mio Mclean MD 420 [facility] 494 [place], [place] 320695 Assigned Cancer Care Provider 06/27/21 09/11/21 Luna Simons MD 420 [facility] 480 [place], [place] 9[address]125 Assigned Cancer Care Provider 09/12/21 01/18/24 Nadja Hagen MD [facility]2 S [facility] Floor 2, [address] [place], [place] 873234 Resident Psychiatry 04/01/22 05/13/24 Batool Atkinson, PhD LP [address] [place] [address] [address] [place], [place] 6[address]64 Psychologist Licensed Mental Health 04/01/22 Prisca Miller MD 6 [facility] 295 [place], [place] 392305 Resident Neurology 02/10/23 Jennyfer Steele, CASING PULLER AIRCRAFT STRESS ANALYST [address] [place] [address] [place], [place] 242434 Nurse Practitioner Psychiatry 02/23/23 Jennyfer Steele APRN AIRCRAFT STRESS ANALYST 2312 [place] 1926775 [place], [place] 853644 Assigned Behavioral Health Provider 06/30/23 Sadaf Apple NP Assigned PCP 07/21/23 09/18/23 [facility] [address] [place] [address] Assigned PCP 09/19/23 Yamel Saha PA-C [address] 794915 Assigned Cancer Care Provider 01/19/24 04/19/24 Luna Simons MD [address] [address] Assigned Cancer Care Provider 04/20/24 documented as of this encounter
--- OUTSIDE RECORDS SUMMARY | 2024-10-15 18:41 | XMS_ITS | Encounter Summary ---
Author Organization [place] Address [address] [place] [address] Care Team Providers Care Special Services Agent Name Role Phone Cyndie Eisenberg NP Primary Care Provider + Rodney Natarajan MD Unavailable [phone] Luna Simons MD Unavailable [phone] Caroline Duque RN Unavailable Martha White MD Unavailable Pedrito Ramirez MD Unavailable [phone] Rodney Natarajan MD Unavailable [phone] Luna Simons MD Unavailable Martha White MD Unavailable Mio Mclean MD Unavailable [phone] Ankita Park MD Unavailable [phone] Ankita Park MD Unavailable [phone] Mio Mclean MD Unavailable [phone] Luna Simons MD Unavailable Luna Simons MD Unavailable [phone] Jose Zaragoza NP Unavailable Mio Mclean MD Unavailable [phone] Luna Simons MD Unavailable [phone] Nadja Hagen MD Unavailable [phone] Batool Atkinson PhD LP Unavailable [phone] Prisca Miller MD Unavailable [phone] Ramin Steelen Ravi STONE CARRIAGE OPERATOR PATIENT OMBUDSPERSON Unavailable + Jennyfer Steele APRN PATIENT OMBUDSPERSON Unavailable + Sadaf Apple NP Unavailable Unavailable [facility] Unavailabl e Yamel Saha PA-C Unavailable +[phone] Luna Simons MD Unavailable [phone] Encounter Details Date Type Department Care Team (Late st Contact Info) Description 11/06/2019 MyC Medical Advice [facility] Center [address] [place] 200 [facility] [place] [phone] Suni Vernon, LUIGI Social History Tobacco Use [...] [facility] Breast Center Imaging [place] [id number] [facility] 2nd [place] [address] Luna Simons MD [address] [place] [address] 09/15/2025 10:00 AM CDT Oncology Visit [facility] 909 [place] [phone] Luna Simons MD [address] [place] [address] 166995 documented as of this encounter Visit Diagnoses Not on filedocumented in this encounter Additional Health Concerns Infection Onset Date Last Indicated Resolved Time Rule Out COVID-19 01/24/2023 01/24/2023 01/24/2023 10:32 PM CDT documented as of this encounter Care Teams Special Services Agent Relationship Specialty Start Date End Date Cyndie Eisenberg NP [address] [place] [address] PCP - General 09/25/19 Rodney Natarajan MD [address] [place] [address] 120625 General Surgery 09/25/19 Luna Simons MD [address] [place] [address] 373045 Hematology 09/25/19 Caroline Duque, RN Specialty Expediter Service Order Breast Oncology 09/30/19 Martha White MD [address] [place] [address] [address] [place] [address] insolvency consultant 11/01/19 Pedrito Ramirez MD [address] [facility] [address] [place], [place] [address] Assigned Heart and Vascular Provider 03/20/20 11/07/20 Rodney Natarajan MD [address] [place] [address] Assigned Surgical Provider 03/20/20 08/07/21 Luna Simons MD 420 [facility] 480 [place] [address] Assigned Cancer Care Provider 03/20/20 04/11/20 Martha White MD [address] [place] [address] [address] [place] [address] Assigned Behavioral Health Provider 03/20/20 05/02/20 Mio Mclean MD 420 [facility] 494 [place] [address] Assigned Cancer Care Provider 04/12/20 04/21/20 Ankita Park MD [address] [place] [phone] Assigned Behavioral Health Provider 05/03/20 06/29/23 Ankita Park MD [address] [place] [address] insolvency consultant 06/10/20 Mio Mclean MD 420 [facility] 494 [place] [address] Assigned Cancer Care Provider 05/10/20 07/25/20 Luna Simons MD 420 [facility] 480 [place] [address] Assigned Cancer Care Provider 04/22/20 05/09/20 Luna Simons MD 420 [facility] 480 [place] [address] Assigned Cancer Care Provider 07/26/20 06/26/21 Jose Zaragoza, CHUCKING MACHINE SET UP OPERATOR TOOL 6405 [facility] [place], [place] 3[address] Assigned Heart and Vascular Provider 11/08/20 02/04/22 Mio Mclean MD 420 [facility] 494 [place], [place] 227035 Assigned Cancer Care Provider 06/27/21 09/11/21 Luna Simons MD 420 [facility] 480 [place], [place] 685215 Assigned Cancer Care Provider 09/12/21 01/18/24 Nadja Hagen MD 2312 S [facility] Floor 2, [address] [place], [place] 6[address] Resident Psychiatry 04/01/22 05/13/24 Batool Atkinson, PhD LP [address] [place], [place] 8[address] Psychologist Licensed Mental Health 04/01/22 Prisca Miller MD 516 [facility] SE [facility] 295 [place], [place] 6[address] Resident Neurology 02/10/23 Jennyfer Steele APRN PATIENT OMBUDSPERSON [address], [place] [address] [place] [address] Nurse Practitioner Psychiatry 02/23/23 Jennyfer Steele APRN PATIENT OMBUDSPERSON [address], [place] [address] [place], [place] 210694 Assigned Behavioral Health Provider 06/30/23 Sadaf Apple NP Assigned PCP 07/21/23 09/18/23 [facility] [address] [place] [address] Assigned PCP 09/19/23 Yamel Saha PA-C [address] [address] Assigned Cancer Care Provider 01/19/24 04/19/24 Luna Simons MD [address] [phone] Assigned Cancer Care Provider 04/20/24 documented as of this encounter
--- OUTSIDE RECORDS SUMMARY | 2024-10-15 18:41 | XMS_ITS | Encounter Summary ---
Author Organization [place] Address [address] [place] [address] Care Team Providers Care [place] Seamer Name Role Phone Cyndie Eisenberg NP Primary Care Provider + Rodney Natarajan MD Unavailable [phone] Luna Simons MD Unavailable [phone] Caroline Duque RN Unavailable [phone] Martha White MD Unavailable Pedrito Ramirez MD Unavailable [phone] Rodney Natarajan MD Unavailable [phone] Luna Simons MD Unavailable Martha White MD Unavailable Mio Mclean MD Unavailable [phone] Ankita Park MD Unavailable [phone] Ankita Park MD Unavailable [phone] Mio Mclean MD Unavailable [phone] Luna Simons MD Unavailable Luna Simons MD Unavailable Jose Zaragoza NP Unavailable Mio Mclean MD Unavailable [phone] Luna Simons MD Unavailable [phone] Nadja Hagen MD Unavailable [phone] Batool Atkinson PhD LP Unavailable [phone] Prisca Miller MD Unavailable [phone] Ramin Steelen Ravi ETL DATA ARCHITECT FIRE PREVENTION OFFICER Unavailable + Jennyfer Steele APRN FIRE PREVENTION OFFICER Unavailable + Sadaf Apple NP Unavailable Unavailable [facility] Unavailabl e Yamel Saha PA-C Unavailable [phone] Luna Simons MD Unavailable [phone] Encounter Details Date Type Department Care Team (Late st Contact Info) Description 02/14/2020 [facility] Medical Advice [facility] 9 [place] [address] [facility] Social [...] [facility] Imaging [place] 909 [facility] 2nd [place] [address] Luna Smions MD 420 [facility] 480 [place] [address] 09/15/2025 10:00 AM CDT Oncology Visit [facility] 909 [facility] [place] [address] Luna Simons MD 420 [facility] 480 [place], [place] 745045 documented as of this encounter Visit Diagnoses Not on filedocumented in this encounter Additional Health Concerns Infection Onset Date Last Indicated Resolved Time Rule Out COVID-19 01/24/2023 01/24/2023 01/24/2023 10:32 PM CDT documented as of this encounter Care Teams [place] Seamer Relationship Specialty Start Date End Date Cyndie Eisenberg EVENT SPECIALIST FOOD DEMONSTRATOR [address] [place] [address] PCP - General 09/25/19 Rodney Natarajan MD [address] [place] [address] 195 [place], [place] 366555 General Surgery 09/25/19 Luna Simons MD [address] [place] [address] 480 [place], [place] 046785 Hematology 09/25/19 Caroline Duque, RN Specialty Waffle Machine Operator Breast Oncology 09/30/19 Martha White MD [address] [place] [address] [place] [address] planning supervisor 11/01/19 Pedrito Ramirez MD [address] [place] [address] [place] [address] Assigned Heart and Vascular Provider 03/20/20 11/07/20 Rodney Natarajan MD [address] [place] [facility] 195 [place] [address] Assigned Surgical Provider 03/20/20 08/07/21 Luna Simons MD 420 [place] [facility] 480 [place] [address] Assigned Cancer Care Provider 03/20/20 04/11/20 Martha White MD [address] [place] [address] [address] [place], [place] 923354 Assigned Behavioral Health Provider 03/20/20 05/02/20 Mio Mclean MD 420 [place] [facility] 494 [place] [address] Assigned Cancer Care Provider 04/12/20 04/21/20 Ankita Park MD [facility] [address] [address] Assigned Behavioral Health Provider 05/03/20 06/29/23 Ankita Park MD [facility] [address] [phone] planning supervisor 06/10/20 Mio Mclean MD 420 [place] [address] [facility] 494 [place] [address] Assigned Cancer Care Provider 05/10/20 07/25/20 Luna Simons MD 420 [place] [facility] 480 [place] [address] Assigned Cancer Care Provider 04/22/20 05/09/20 Luna Simons MD 420 [facility] 480 [place] [address] Assigned Cancer Care Provider 07/26/20 06/26/21 Jose Zaragoza, EVENT SPECIALIST FOOD DEMONSTRATOR 6405 [facility] [place] [address]125 Assigned Heart and Vascular Provider 11/08/20 02/04/22 Mio Mclean MD 420 [facility] 494 [place], [place] 7[address]65 Assigned Cancer Care Provider 06/27/21 09/11/21 Luna Simons MD 420 [facility] 480 [place], [place] 97[address]75 Assigned Cancer Care Provider 09/12/21 01/18/24 Nadja Hagen MD [facility] S [facility] Floor 2, [address] [place], [place] 40[address]94 Resident Psychiatry 04/01/22 05/13/24 Batool Atkinson, PhD LP [address] [place] [address] [address] [place], [place] 179674 Psychologist Licensed Mental Health 04/01/22 Prisca Miller MD 516 [facility] 295 [place], [place] 394755 Resident Neurology 02/10/23 Jennyfer Steele APRN FIRE PREVENTION OFFICER [address], [place] [address] [place], [place] 8[address] Nurse Practitioner Psychiatry 02/23/23 Jennyfer Steele APRN FIRE PREVENTION OFFICER [address] [place] [address] [address]275 [place] [address] Assigned Behavioral Health Provider 06/30/23 Sadaf Apple NP Assigned PCP 07/21/23 09/18/23 [facility] [address] [place] [address] Assigned PCP 09/19/23 Yamel Saha PA-C [address] [place] [address] 627635 Assigned Cancer Care Provider 01/19/24 04/19/24 Luna Simons MD [address] 614[address] Assigned Cancer Care Provider 04/20/24 documented as of this encounter
--- OUTSIDE RECORDS SUMMARY | 2024-10-15 18:41 | XMS_ITS | Encounter Summary ---
Author Organization [place] Address [address] [place] [address] Care Team Providers Care Laborer/Key Man Name Role Phone Cyndie Eisenberg NP Primary Care Provider + Rodney Natarajan MD Unavailable [phone] Luna Simons MD Unavailable Caroline Duque RN Unavailable [phone] Martha White MD Unavailable Pedrito Ramirez MD Unavailable [phone] Rodney Natarajan MD Unavailable [phone] Luna Simons MD Unavailable [phone] Martha White MD Unavailable Mio Mclean MD Unavailable [phone] Ankita Park MD Unavailable [phone] Ankita Park MD Unavailable [phone] Mio Mclean MD Unavailable [phone] Luna Simons MD Unavailable [phone] Luna Simons MD Unavailable Jose Zaragoza NP Unavailable Mio Mclean MD Unavailable [phone] Luna Simons MD Unavailable [phone] Nadja Hagen MD Unavailable [phone] Batool Atkinson PhD LP Unavailable [phone] Prisca Miller MD Unavailable [phone] Ramin Steelen Ravi KEVIN CHURN DRILLER Unavailable + IvetteJennyfer vaughan APRN CHURN DRILLER Unavailable + Sadaf Apple NP Unavailable Unavailable [facility] - [facility] Unavailabl e Yamel Saha PA-C Unavailable [phone] Luna Simons MD Unavailable [phone] Encounter Details Date Type Department Care Team (Late st Contact Info) Description 02/13/2020 [facility] Clinic [address] [place] [address] Caroline Duque, ASHLIE Social History Tobacco [...] 8:41 AM CDT Radiation referral faxed to [facility]3] @ [phone]. Patient was advised of this. Faina Hassan CMA (AAMA) documented in this encounter Plan of Treatment Upcoming Encounters Date Type Department Care Team (Late st Contact Info) Description 09/15/2025 9:15 AM CDT Ancillary Procedure M [facility] Breast Center Imaging [place] 909 [facility] SE 2nd [place] [phone] Luna Simons MD 420 [facility] 480 [place], [place] [address]295 09/15/2025 10:00 AM CDT Oncology Visit [facility] 909 [place] [phone] Luna Simons MD 420 [facility] 480 [place], [place] 7[address]65 documented as of this encounter Visit Diagnoses Not on filedocumented in this encounter Additional Health Concerns Infection Onset Date Last Indicated Resolved Time Rule Out COVID-19 01/24/2023 01/24/2023 01/24/2023 10:32 PM CDT documented as of this encounter Care Teams Laborer/Key Man Relationship Specialty Start Date End Date Cyndie Eisenberg NP [address] [place] [address] PCP - General 09/25/19 Rodney Natarajan MD [address] [place] [address] 195 [place] [address] General Surgery 09/25/19 Luna Simons MD 420 [facility] 480 [place], [place] 468335 Hematology 09/25/19 Caroline Duque, RN Specialty Career Development Counselor Breast Oncology 09/30/19 Martha White MD [address] 6[address] [facility] [address] [place] [address] engraver rubber 11/01/19 Pedrito Ramirez MD [address] [facility] [address] [place] [address] [place] [address] Assigned Heart and Vascular Provider 03/20/20 11/07/20 Rodney Natarajan MD 420 [facility] 195 [place], [place] 0[address]055 Assigned Surgical Provider 03/20/20 08/07/21 Luna Simons MD 420 [facility] 480 [place], [place] 85[address] Assigned Cancer Care Provider 03/20/20 04/11/20 Martha White MD [address] [place] [address] [address] [place] [address] Assigned Behavioral Health Provider 03/20/20 05/02/20 Mio Mclean MD 420 [facility] 494 [place], [place] 7[address]185 Assigned Cancer Care Provider 04/12/20 04/21/20 Ankita Park MD [facility] [place] [phone] Assigned Behavioral Health Provider 05/03/20 06/29/23 Ankita Park MD [address] [place] [address] [place] [phone] engraver rubber 06/10/20 Mio Mclean MD [address] [place] [address] [facility] 494 [place] [address] Assigned Cancer Care Provider 05/10/20 07/25/20 Luna Simons MD [address] [place] [address] [facility] 480 [place] [address] Assigned Cancer Care Provider 04/22/20 05/09/20 Luna Simons MD [address] [place] [facility] 480 [place] [address] Assigned Cancer Care Provider 07/26/20 06/26/21 Jose Zaragoza, AIR HOLE DRILLER 6405 [place], [place] 658155 Assigned Heart and Vascular Provider 11/08/20 02/04/22 Mio Mclean MD 420 [facility] 494 [place] [address] Assigned Cancer Care Provider 06/27/21 09/11/21 Luna Simons MD 420 [place] [address] [facility] 480 [place] [address] Assigned Cancer Care Provider 09/12/21 01/18/24 Nadja Hagen MD [address] Floor 2, [address] [place], [place] [address] Resident Psychiatry 04/01/22 05/13/24 Batool Atkinson, PhD LP 2450 [facility] [address] [place], [place] 314264 Psychologist Licensed Mental Health 04/01/22 Prisca Miller MD 516 [facility] 295 [place], [place] 402205 Resident Neurology 02/10/23 Jennyfer Steele APRN CHURN DRILLER [address] [place] [address], [facility] F[address] [place], [place] 5[address]64 Nurse Practitioner Psychiatry 02/23/23 Jennyfer Steele APRN CHURN DRILLER [address] [place] [address] [address] [place], [place] 278964 Assigned Behavioral Health Provider 06/30/23 Sadaf Apple NP Assigned PCP 07/21/23 09/18/23 [facility] [address] [place] [address] Assigned PCP 09/19/23 Yamel Saha PA-C 420 [facility] 480 [place], [place] 763545 Assigned Cancer Care Provider 01/19/24 04/19/24 Luna Simons MD 420 [facility] 480 [place], [place] 47[address]65 Assigned Cancer Care Provider 04/20/24 documented as of this encounter
--- OUTSIDE RECORDS SUMMARY | 2024-10-15 18:41 | XMS_ITS | Encounter Summary ---
Author Organization [place] Address [address] [place] [address] Care Team Providers Care Furnace Mechanic Name Role Phone Cyndie Eisenberg NP Primary Care Provider + Rodney Natarajan MD Unavailable [phone] Luna Simons MD Unavailable Caroline Duque RN Unavailable [phone] Martha White MD Unavailable Pedrito Ramirez MD Unavailable [phone] Rodney Natarajan MD Unavailable [phone] Luna Simons MD Unavailable Martha White MD Unavailable Mio Mclean MD Unavailable [phone] Ankita Park MD Unavailable [phone] Ankita Park MD Unavailable [phone] Mio Mclean MD Unavailable [phone] Luna Simons MD Unavailable Luna Simons MD Unavailable Jose Zaragoza NP Unavailable [phone] Mio Mclean MD Unavailable [phone] Luna Simons MD Unavailable [phone] Nadja Hagen MD Unavailable [phone] Batool Atkinson PhD LP Unavailable [phone] Prisca Miller MD Unavailable [phone] Ramin Steelen Ravi INFORMATION ASSISTANT SPONGE FISHERMAN Unavailable + IvetteJennyfer vaughan APRN SPONGE FISHERMAN Unavailable + Sadaf Apple NP Unavailable Unavailable Clinic - [facility] Unavailabl e Yamel Saha PA-C Unavailable +[phone] Luna Simons MD Unavailable [phone] Encounter Details Date Type Department Care Team (Late st Contact Info) Description 11/27/[address] [facility] Cancer [address] [address] Tawny Mccormick, ASHLIE Social History [...] Description 09/15/2025 9:15 AM CDT Ancillary Procedure [facility] Breast Center Imaging [address] 2nd [place] [address] Luna Simons MD [address] [place] [address] 09/15/2025 10:00 AM CDT Oncology Visit [facility] Cancer [address] [place] [phone] Luna Simons MD 420 [facility] 480 [place], [place] 275455 documented as of this encounter Visit Diagnoses Not on filedocumented in this encounter Additional Health Concerns Infection Onset Date Last Indicated Resolved Time Rule Out COVID-19 01/24/2023 01/24/2023 01/24/2023 10:32 PM CDT documented as of this encounter Care Teams Furnace Mechanic Relationship Specialty Start Date End Date Cyndie Eisenberg, ORDER MAKE UP CLERK [address] [place] [address] PCP - General 09/25/19 Rodney Natarajan MD [address] [place] [address] 047415 General Surgery 09/25/19 Luna Simons MD [address] [place] [address]295 Hematology 09/25/19 Caroline Duque, RN Specialty Tin Pot Operator Breast Oncology 09/30/19 Martha White MD [address] [place] [address] [address] [place] [address] cranberry grower 11/01/19 Pedrito Ramirez MD 6405 [facility] [address] [place], [place] 970465 Assigned Heart and Vascular Provider 03/20/20 11/07/20 Rodney Natarajan MD [address] [place] [address] 195 [place], [place] 720585 Assigned Surgical Provider 03/20/20 08/07/21 Luna Simons MD 420 [facility] 480 [place] [address] Assigned Cancer Care Provider 03/20/20 04/11/20 Martha White MD [facility] [address] [place], [place] [address] Assigned Behavioral Health Provider 03/20/20 05/02/20 Mio Mclean MD 420 [facility] 494 [place] [address] Assigned Cancer Care Provider 04/12/20 04/21/20 Ankita Park MD [address] [place] [phone] Assigned Behavioral Health Provider 05/03/20 06/29/23 Ankita Park MD [address] [place] [phone] cranberry grower 06/10/20 Mio Mclean MD [address] [address] Assigned Cancer Care Provider 05/10/20 07/25/20 Luna Simons MD 420 [facility] 480 [place] [address] Assigned Cancer Care Provider 04/22/20 05/09/20 Luna Simons MD 420 [facility] 480 [place] [address] Assigned Cancer Care Provider 07/26/20 06/26/21 Jose Zaragoza, ORDER MAKE UP CLERK 6405 [place] [address] Assigned Heart and Vascular Provider 11/08/20 02/04/22 Mio Mclean MD 420 [facility] 494 [place] [address] Assigned Cancer Care Provider 06/27/21 09/11/21 Luna Simons MD 420 [facility] 480 [place] [address] Assigned Cancer Care Provider 09/12/21 01/18/24 Nadja Hagen MD [address] [place] [address] Floor 2, [address] [place], [place] 8[address] Resident Psychiatry 04/01/22 05/13/24 Batool Atkinson, PhD LP 2450 [facility] [address] [place], [place] 29[address] Psychologist Licensed Mental Health 04/01/22 Prisca Miller MD 6 [facility] 295 [place], [place] [address]45 Resident Neurology 02/10/23 Jennyfer Steele APRN SPONGE FISHERMAN [facility]2 S [facility] [address], [place] [address] [place], [place] [address] Nurse Practitioner Psychiatry 02/23/23 Jennyfer Steele APRN SPONGE FISHERMAN [facility] S [facility] ST, [facility] F275 [place] [address] Assigned Behavioral Health Provider 06/30/23 Sadaf Apple NP Assigned PCP 07/21/23 09/18/23 [facility] [address] [place] [address] Assigned PCP 09/19/23 Yamel Saha PA-C [address] 285635 Assigned Cancer Care Provider 01/19/24 04/19/24 Luna Simons MD [address] 407[address] Assigned Cancer Care Provider 04/20/24 documented as of this encounter
--- OUTSIDE RECORDS SUMMARY | 2024-10-15 18:41 | XMS_ITS | Encounter Summary ---
Author Organization [place] Address [address] [place] [address] Care Team Providers Care Terminal System Operator Name Role Phone Cyndie Eisenberg NP Primary Care Provider + Rodney Natarajan MD Unavailable [phone] Luna Simons MD Unavailable [phone] Caroline Duque RN Unavailable [phone] Martha White MD Unavailable [phone] Rodney Natarajan MD Unavailable +[phone] Ankita Park MD Unavailable +[phone] Ankita Park MD Unavailable [phone] Luna Simons MD Unavailable Jose Zaragoza NP Unavailable Mio Mclean MD Unavailable +[phone] Luna Simons MD Unavailable Nadja Hagen MD Unavailable [phone] Batool Atkinson PhD LP Unavailable [phone] Prisca Miller MD Unavailable +[phone] Jennyfer Steele APRN WINDOWS APPLICATION DEVELOPER Unavailable +[phone] Jennyfer Steele APRN WINDOWS APPLICATION DEVELOPER Unavailable + [phone] Sadaf Apple NP Unavailable Unavailable [facility] Unavailabl e Yamel Saha PA-C Unavailable [phone] Luna Siomns MD Unavailable Encounter Details Date Type Department Care Team (Late Contact Info) Description 06/24/2021 MyC Medical Advice [facility] 9[address] [place] [address] Gabrielle Perkins PA-C [address] [place] [address] [place] [address] Social History Tobacco Use Types Packs/Day [...] COVID-19? No / Unsure 06/24/2021 8:38 AM SHOPPER MARKETING MANAGER documented as of this encounter Plan of Treatment Upcoming Encounters Date Type Department Care Team (Late Contact Info) Description 09/15/2025 9:15 AM CDT Ancillary Procedure [facility] Breast Center Imaging [place] 909 [facility] 2nd [place] [address] Luna Simons MD [address] [place] [address] 480 [place] [address] 09/15/2025 10:00 AM CDT Oncology Visit [facility] 909 [place] [address] Luna Simons MD [address] [place] [address] [facility] [address] [place] [address] documented as of this encounter Visit Diagnoses Not on filedocumented in this encounter Additional Health Concerns Infection Onset Date Last Indicated Resolved Time Rule Out COVID-19 01/24/2023 01/24/2023 01/24/2023 10:32 PM CDT documented as of this encounter Care Teams Terminal System Operator Relationship Specialty Start Date End Date Cyndie Eisenberg NP [address] [place] [address] PCP - General 09/25/19 Rodney Natarajan MD 420 [facility] 195 [place] [address] General Surgery 09/25/19 Luna Simons MD 420 [facility] 480 [place] [address] Hematology 09/25/19 Caroline Duque, RN Specialty Utility Sales Representative Breast Oncology 09/30/19 Martha White MD [address] [address] [address] [place] [address] wet room supervisor 11/01/19 Rodney Natarajan MD 420 [facility] 195 [place] [address] Assigned Surgical Provider 03/20/20 08/07/21 [place] [address] [place] [phone] Assigned Behavioral Health Provider 05/03/20 06/29/23 Ankita Park MD [address] [address] wet room supervisor 06/10/20 Luna Simons MD 420 [facility] 480 [place] [address] Assigned Cancer Care Provider 07/26/20 06/26/21 Jose Zaragoza, ACCOUNTING TEACHER [address] [facility] [address] [place], [place] 9[address] Assigned Heart and Vascular Provider 11/08/20 02/04/22 Mio Mclean MD 420 [facility] 494 [place], [place] 929795 Assigned Cancer Care Provider 06/27/21 09/11/21 Luna Simons MD 420 [facility] 480 [place], [place] 335795 Assigned Cancer Care Provider 09/12/21 01/18/24 Nadja Hagen MD [address] Floor 2, [address] [place], [place] 758884 Resident Psychiatry 04/01/22 05/13/24 Batool Atkinson, PhD LP 2450 [facility] F282 [place], [place] 937094 Psychologist Licensed Mental Health 04/01/22 Prisca Miller MD 516 [facility] 295 [place], [place] 393365 Resident Neurology 02/10/23 Jennyfer Steele APRN WINDOWS APPLICATION DEVELOPER 2312 S [facility] F275 [place], [place] 063174 Nurse Practitioner Psychiatry 02/23/23 Jennyfer Steele APRN WINDOWS APPLICATION DEVELOPER 2312 S [facility] [address]275 [place], [place] 837274 Assigned Behavioral Health Provider 06/30/23 Sadaf Apple NP Assigned PCP 07/21/23 09/18/23 [facility] [address] [place] [address] Assigned PCP 09/19/23 Yamel Saha PA-C [address] [place] [address] [phone] Assigned Cancer Care Provider 01/19/24 04/19/24 Luna Simons MD [address] [place] [address] [phone] Assigned Cancer Care Provider 04/20/24 documented as of this encounter
--- OUTSIDE RECORDS SUMMARY | 2024-10-15 18:41 | XMS_ITS | Encounter Summary ---
Author Organization [place] Address [address] [place] [address] Care Team Providers Care Employment Instructional Associate Name Role Phone Cyndie Eisenberg NP Primary Care Provider + Rodney Natarajan MD Unavailable [phone] Luna Simons MD Unavailable Caroline Duque RN Unavailable [phone] Martha White MD Unavailable Pedrito Ramirez MD Unavailable +[phone] Rodney Natarajan MD Unavailable [phone] Luna Simons MD Unavailable Martha White MD Unavailable Mio Mclean MD Unavailable Ankita Park MD Unavailable [phone] Ankita Park MD Unavailable [phone] Mio Mclean MD Unavailable [phone] Luna Simons MD Unavailable Luna Simons MD Unavailable +[phone] Jose Zaragoza NP Unavailable Mio Mclean MD Unavailable [phone] Luna Simons MD Unavailable [phone] Nadja Hagen MD Unavailable [phone] Batool Atkinson PhD LP Unavailable [phone] Prisca Miller MD Unavailable [phone] Ramin Steelen Ravi RETIREMENT PLAN COUNSELOR COURT MANAGER Unavailable + Jennyfer Steele APRN COURT MANAGER Unavailable + Sadaf Apple NP Unavailable Unavailable [facility] Unavailabl e Yamel Saha PA-C Unavailable +[phone] Luna Simons MD Unavailable [phone] Encounter Details Date Type Department Care Team (Late st Contact Info) Description 11/20/2019 MyC Medical Advice [facility] [place] [id number] [facility] [address] [phone] [facility] Social History Tobacco Use Types [...] Procedure [facility] Breast Center Imaging [place] 909 [facility] 2nd [place] [address] Luna Simons MD [address] [place] [address] 507085 09/15/2025 10:00 AM CDT Oncology Visit [facility] [address] [place] [phone] Luna Simons MD 420 [facility] 480 [place], [place] 721365 documented as of this encounter Visit Diagnoses Not on filedocumented in this encounter Additional Health Concerns Infection Onset Date Last Indicated Resolved Time Rule Out COVID-19 01/24/2023 01/24/2023 01/24/2023 10:32 PM CDT documented as of this encounter Care Teams Employment Instructional Associate Relationship Specialty Start Date End Date Cyndie Eisenberg NP [address] [place] [address] PCP - General 09/25/19 Rodney Natarajan MD 420 [facility] 195 [place], [place] 436095 General Surgery 09/25/19 Luna Simons MD [address] 704[address] Hematology 09/25/19 Caroline Duque, RN Specialty Spinning Supervisor Breast Oncology 09/30/19 Martha White MD 2312 [address] [facility] [place] [address] [place] [address] television repairman 11/01/19 Pedrito Ramirez MD 6405 [facility] [address] [place], [place] 385585 Assigned Heart and Vascular Provider 03/20/20 11/07/20 Rodney Natarajan MD 420 [facility] 195 [place], [place] 256555 Assigned Surgical Provider 03/20/20 08/07/21 Luna Simons MD 420 [facility] 480 [place] [address] Assigned Cancer Care Provider 03/20/20 04/11/20 Martha White MD [facility] [address] [place] [address] Assigned Behavioral Health Provider 03/20/20 05/02/20 Mio Mclean MD 420 [facility] 494 [place] [address] Assigned Cancer Care Provider 04/12/20 04/21/20 Ankita Park MD [address] [place] [phone] Assigned Behavioral Health Provider 05/03/20 06/29/23 Ankita Park MD [address] [place] [phone] television repairman 06/10/20 Mio Mclean MD 420 [facility] 494 [place] [address] Assigned Cancer Care Provider 05/10/20 07/25/20 Luna Simons MD 420 [facility] 480 [place] [address] Assigned Cancer Care Provider 04/22/20 05/09/20 Luna Simons MD 420 [facility] 480 [place] [address] Assigned Cancer Care Provider 07/26/20 06/26/21 Jose Zaragoza, LOGISTICS ASSOCIATE 6405 [facility] [place] [address] Assigned Heart and Vascular Provider 11/08/20 02/04/22 Mio Mclean MD 420 [facility] 494 [place] [address] Assigned Cancer Care Provider 06/27/21 09/11/21 Luna Simons MD 420 [facility] 480 [place] [address] Assigned Cancer Care Provider 09/12/21 01/18/24 Nadja Hagen MD [facility] S [facility] Floor 2, [address] [place], [place] 991114 Resident Psychiatry 04/01/22 05/13/24 Batool Atkinson, PhD LP 2450 [facility] F282 [place], [place] 7[address]894 Psychologist Licensed Mental Health 04/01/22 Prisca Miller MD 516 [facility] EMERGENC[facility]MENT 295 [place], [place] 694395 Resident Neurology 02/10/[address] MANAGER [address] [place] [address] [place] [address] Nurse Practitioner Psychiatry 02/23/[address] MANAGER [address] [place] [address] [place] [address] Assigned Behavioral Health Provider 06/30/23 Sadaf Apple NP Assigned PCP 07/21/23 09/18/23 [facility] [address] [place] [address] Assigned PCP 09/19/23 Yamel Saha PA-C [address] [phone] Assigned Cancer Care Provider 01/19/24 04/19/24 Luna Simons MD [address] [address] Assigned Cancer Care Provider 04/20/24 documented as of this encounter
--- OUTSIDE RECORDS SUMMARY | 2024-10-15 18:41 | XMS_ITS | Encounter Summary ---
Author Organization [facility] Address [address] [place] [address] Care Team Providers Care Composite Bond Worker Name Role Phone Cyndie Eisenberg NP Primary Care Provider + Rodney Natarajan MD Unavailable [phone] Luna Simons MD Unavailable [phone] Caroline Duque RN Unavailable [phone] Martha White MD Unavailable Pedrito Ramirez MD Unavailable [phone] Rodney Natarajan MD Unavailable [phone] Luna Simons MD Unavailable [phone] Martha White MD Unavailable Mio Mclean MD Unavailable [phone] Ankita Park MD Unavailable [phone] Ankita Park MD Unavailable [phone] Mio Mclean MD Unavailable [phone] Luna Simons MD Unavailable Luna Simons MD Unavailable +[phone] Jose Zaragoza NP Unavailable Mio Mclean MD Unavailable [phone] Luna Simons MD Unavailable [phone] Nadja Hagen MD Unavailable [phone] Batool Atkinson PhD LP Unavailable [phone] Prisca Miller MD Unavailable [phone] Ivette Jennyferjulieth Rodrigues APRN BRINE MAKER Unavailable + Jennyfer Steele APRN BRINE MAKER Unavailable + Sadaf Apple NP Unavailable Unavailable Clinic - [facility] Unavailabl e Yamel Saha PA-C Unavailable +[phone] Luna Simons MD Unavailable [phone] Encounter Details Date Type Department Care Team (Late st Contact Info) Description 02/09/[address] [facility] [address] [place] [address] Luna Simons MD [address] [address] Social History Tobacco Use Types [...] 09/15/2025 9:15 AM CDT Ancillary Procedure [facility] Breast Center Imaging [address] 2nd [place] [address] Luna Simons MD 420 [facility] 480 [place], [place] 202575 09/15/2025 10:00 AM CDT Oncology Visit [facility] 909 [facility] [place] [phone] Luna Simons MD 420 [facility] 480 [place], [place] 745945 documented as of this encounter Visit Diagnoses Not on filedocumented in this encounter Additional Health Concerns Infection Onset Date Last Indicated Resolved Time Rule Out COVID-19 01/24/2023 01/24/2023 01/24/2023 10:32 PM CDT documented as of this encounter Care Teams Composite Bond Worker Relationship Specialty Start Date End Date Cyndie Eisenberg, AMANDA [address] [place] [address] PCP - General 09/25/19 Rodney Natarajan MD 420 [facility] 195 [place], [place] 626625 General Surgery 09/25/19 Luna Simons MD 420 [facility] 480 [place], [place] 5[address]995 Hematology 09/25/19 Caroline Duque, RN Specialty Cellophaner Breast Oncology 09/30/19 Martha White MD [address] [place] [address] [address] [place], [place] 376864 emergency veterinary assistant 11/01/19 Pedrito Ramirez MD 6405 [facility] [address] [place], [place] 122655 Assigned Heart and Vascular Provider 03/20/20 11/07/20 Rodney Natarajan MD [address] [place] [facility] 195 [place] [address] Assigned Surgical Provider 03/20/20 08/07/21 Luna Simons MD 420 [facility] 480 [place] [address] Assigned Cancer Care Provider 03/20/20 04/11/20 Martha White MD [address] [place] [address] [address]275 [place] [address] Assigned Behavioral Health Provider 03/20/20 05/02/20 Mio Mclean MD 420 [facility] 494 [place] [address] Assigned Cancer Care Provider 04/12/20 04/21/20 Ankita Park MD [address] [place] [phone] Assigned Behavioral Health Provider 05/03/20 06/29/23 Ankita Park MD [address] [place] [phone] emergency veterinary assistant 06/10/20 Mio Mclean MD 420 [place] [facility] 494 [place] [address] Assigned Cancer Care Provider 05/10/20 07/25/20 Luna Simons MD 420 [facility] 480 [place] [address] Assigned Cancer Care Provider 04/22/20 05/09/20 Luna Simons MD 420 [facility] 480 [place] [address] Assigned Cancer Care Provider 07/26/20 06/26/21 Jose Zaragoza, MILLING MACHINE OPERATOR 6405 [facility] [place] [address] Assigned Heart and Vascular Provider 11/08/20 02/04/22 Mio Mclean MD 420 [facility] 494 [place] [address] Assigned Cancer Care Provider 06/27/21 09/11/21 Luna Simons MD 420 [facility] 480 [place], [place] 954445 Assigned Cancer Care Provider 09/12/21 01/18/24 Nadja Hagen MD 2312 S [facility] Floor 2, [address] [place], [place] 394914 Resident Psychiatry 04/01/22 05/13/24 Batool Atkinson, PhD LP 2450 [facility] F282 [place], [place] 7884[address] Psychologist Licensed Mental Health 04/01/22 Prisca Miller MD 516 [facility] EMERGENC[facility]PARTMENT 295 [place], [place] 497665 Resident Neurology 02/10/23 Jennyfer Steele APRN BRINE MAKER 2312 S [facility] [address] [place], [place] 0624[address] Nurse Practitioner Psychiatry 02/23/23 Jennyfer Steele APRN BRINE MAKER 2312 [address] [facility] [place] [address] [place], [place] 127574 Assigned Behavioral Health Provider 06/30/23 Sadaf Apple NP Assigned PCP 07/21/23 09/18/23 [facility] [address] [place] [address] Assigned PCP 09/19/23 Yamel Saha PA-C 420 [facility] 480 [place] [address] Assigned Cancer Care Provider 01/19/24 04/19/24 Luna Simons MD 420 [facility] 480 [place] [address] Assigned Cancer Care Provider 04/20/24 documented as of this encounter
--- OUTSIDE RECORDS SUMMARY | 2024-10-15 18:41 | XMS_ITS | Encounter Summary ---
Author Organization [facility] Address [address] [place] [address] Care Team Providers Care Medical Intern Name Role Phone Cyndie Eisenberg NP Primary Care Provider + Rodney Natarajan MD Unavailable [phone] Luna Simons MD Unavailable Caroline Duque RN Unavailable +[phone] Martha White MD Unavailable Pedrito Ramirez MD Unavailable +[phone] Rodney Natarajan MD Unavailable +[phone] Luna Simons MD Unavailable [phone] Martha White MD Unavailable [phone] Mio Mclean MD Unavailable [phone] Ankita Park MD Unavailable [phone] Ankita Park MD Unavailable [phone] Mio Mclean MD Unavailable [phone] Luna Simons MD Unavailable +[phone] Luna Simons MD Unavailable Jose Zaragoza NP Unavailable Mio Mclean MD Unavailable [phone] Luna Simons MD Unavailable +[phone] Nadja Hagen MD Unavailable +[phone] Batool Atkinson PhD LP Unavailable [phone] Prisca Miller MD Unavailable +[phone] Ramin Steelen Ravi HOURLY SIGN LANGUAGE INTERPRETER SUPERVISOR EXTRUDING DEPARTMENT Unavailable + Jennyfer Steele APRN SUPERVISOR EXTRUDING DEPARTMENT Unavailable + Sadaf Apple NP Unavailable Unavailable Clinic - [facility] Unavailabl e Yamel Saha PA-C Unavailable +[phone] Luna Simons MD Unavailable [phone] Encounter Details Date Type Department Care Team (Late st Contact Info) Description 02/10/2020 [facility] Medical Advice [facility] 9 [place] [address] [facility] Social History Tobacco Use Types Packs/Day [...] [facility] Breast Center Imaging [place] 909 [facility] 2nd [place] [address] Luna Simons MD 420 [facility] 480 [place] [address] 09/15/2025 10:00 AM CDT Oncology Visit [facility] 909 [facility] [place] [address] Luna Simons MD 420 [facility] 480 [place], [place] 442475 documented as of this encounter Visit Diagnoses Not on filedocumented in this encounter Additional Health Concerns Infection Onset Date Last Indicated Resolved Time Rule Out COVID-19 01/24/2023 01/24/2023 01/24/2023 10:32 PM CDT documented as of this encounter Care Teams Medical Intern Relationship Specialty Start Date End Date Cyndie Eisenberg NET C DEVELOPER [address] [place] [address] PCP - General 09/25/19 Rodney Natarajan MD [address] [place] [address] 195 [place], [place] 940855 General Surgery 09/25/19 Luna iSmons MD [address] [place] [address] 480 [place], [place] 553235 Hematology 09/25/19 Caroline Duque, RN Specialty Docket Clerk Breast Oncology 09/30/19 Martha White MD [address] [place] [address] [place] [address] health and safety tech 11/01/19 Pedrito Ramirez MD [address] [place] [address] [place] [address] Assigned Heart and Vascular Provider 03/20/20 11/07/20 Rodney Natarajan MD [address] [place] [facility] 195 [place] [address] Assigned Surgical Provider 03/20/20 08/07/21 Luna Simons MD [address] [place] [facility] 480 [place] [address] Assigned Cancer Care Provider 03/20/20 04/11/20 Martha White MD [address] [place] [address] [address] [place], [place] 524254 Assigned Behavioral Health Provider 03/20/20 05/02/20 Mio Mclean MD 420 [place] [facility] 494 [place] [address] Assigned Cancer Care Provider 04/12/20 04/21/20 Ankita Park MD [facility] [address] [address] Assigned Behavioral Health Provider 05/03/20 06/29/23 Ankita Park MD [facility] [address] [phone] health and safety tech 06/10/20 Mio Mclean MD 420 [place] [facility] 494 [place] [address] Assigned Cancer Care Provider 05/10/20 07/25/20 Luna Simons MD [address] [place] [facility] 480 [place] [address] Assigned Cancer Care Provider 04/22/20 05/09/20 Luna Simons MD 420 [facility] 480 [place] [address] Assigned Cancer Care Provider 07/26/20 06/26/21 Jose Zaragoza, NET C DEVELOPER 6405 [facility] [place] [address]335 Assigned Heart and Vascular Provider 11/08/20 02/04/22 Mio Mclean MD 420 [facility] 494 [place], [place] 968445 Assigned Cancer Care Provider 06/27/21 09/11/21 Luna Simons MD 420 [facility] 480 [place], [place] 386745 Assigned Cancer Care Provider 09/12/21 01/18/24 Nadja Hagen MD [facility] S [facility] Floor 2, [address] [place], [place] [address] Resident Psychiatry 04/01/22 05/13/24 Batool Atkinson, PhD LP [address] [place] [address] [address] [place], [place] 622814 Psychologist Licensed Mental Health 04/01/22 Prisca Miller MD 516 [facility] 295 [place], [place] 115595 Resident Neurology 02/10/23 Jennyfer Steele APRN SUPERVISOR EXTRUDING DEPARTMENT [address] [place] [address] [place], [place] [address] Nurse Practitioner Psychiatry 02/23/23 Jennyfer Steele APRN SUPERVISOR EXTRUDING DEPARTMENT [address] [place] [address] [address]275 [place] [address] Assigned Behavioral Health Provider 06/30/23 Sadaf Apple NP Assigned PCP 07/21/23 09/18/23 [facility] [address] [place] [address] Assigned PCP 09/19/23 Yamel Saha PA-C [address] [place] [address] 647455 Assigned Cancer Care Provider 01/19/24 04/19/24 Luna Simons MD [address] 133[address] Assigned Cancer Care Provider 04/20/24 documented as of this encounter
--- OUTSIDE RECORDS SUMMARY | 2024-10-15 18:41 | XMS_ITS | Encounter Summary ---
Author Organization [facility] Address [address] [place] [address] Care Team Providers Care Strategic Solutions Consultant Name Role Phone Cyndie Eisenberg NP Primary Care Provider + Rodney Natarajan MD Unavailable [phone] Luna Simons MD Unavailable [phone] Caroline Duque RN Unavailable [phone] Martha White MD Unavailable Pedrito Ramirez MD Unavailable +[phone] Rodney Natarajan MD Unavailable [phone] Luna Simons MD Unavailable Martha White MD Unavailable Mio Mclean MD Unavailable +[phone] Ankita Park MD Unavailable [phone] Ankita Park MD Unavailable [phone] Mio Mclean MD Unavailable [phone] Luna Simons MD Unavailable Luna Simons MD Unavailable Jose Zaragoza NP Unavailable Mio Mclean MD Unavailable [phone] Luna Simons MD Unavailable +[phone] Nadja Hagen MD Unavailable +[phone] Batool Atkinson PhD LP Unavailable [phone] Prisca Miller MD Unavailable [phone] Ramin Steelen Ravi SKIMMER SCOOP OPERATOR COMPOSING ROOM SUPERVISOR Unavailable + IvetteJennyfer vaughan APRN COMPOSING ROOM SUPERVISOR Unavailable + Sadaf Apple NP Unavailable Unavailable Clinic - [facility] Unavailabl e Yamel Saha PA-C Unavailable [phone] Luna Simons MD Unavailable [phone] Encounter Details Date Type Department Care Team (Late st Contact Info) Description 11/26/2019 MyC Medical Advice [facility] Cancer [address] [address] [facility] Social History Tobacco Use Types Packs/Day [...] Procedure [facility] Imaging [address] 2nd [place] [address] Luna Simons MD [address] [place] [address] 09/15/2025 10:00 AM CDT Oncology Visit [facility] Cancer [address] [place] [phone] Luna Simons MD 420 [facility] 480 [place], [place] 824905 documented as of this encounter Visit Diagnoses Not on filedocumented in this encounter Additional Health Concerns Infection Onset Date Last Indicated Resolved Time Rule Out COVID-19 01/24/2023 01/24/2023 01/24/2023 10:32 PM CDT documented as of this encounter Care Teams Strategic Solutions Consultant Relationship Specialty Start Date End Date Cyndie Eisenberg, SHOT LIGHTER [address] [place] [address] PCP - General 09/25/19 Rodney Natarajan MD [address] [place] [address] [phone] General Surgery 09/25/19 Luna Simons MD [address] [place] [address] 453075 Hematology 09/25/19 Caroline Duque, RN Specialty Mesh Man Breast Oncology 09/30/19 [address] [facility] [address] [place] [address] [address] [place] [address] eradicator 11/01/19 Pedrito Ramirez MD 6405 [facility] W200 [place], [place] 178145 Assigned Heart and Vascular Provider 03/20/20 11/07/20 Rodney Natarajan MD [address] [place] [address] 195 [place], [place] 961445 Assigned Surgical Provider 03/20/20 08/07/21 Luna Simons MD 420 [facility] 480 [place] [address] Assigned Cancer Care Provider 03/20/20 04/11/20 Martha White MD [facility] [address] [place], [place] [address] Assigned Behavioral Health Provider 03/20/20 05/02/20 Mio Mclean MD [address] [address] Assigned Cancer Care Provider 04/12/20 04/21/20 Ankita Park MD [address] [place] [phone] Assigned Behavioral Health Provider 05/03/20 06/29/23 Ankita Park MD [address] [place] [phone] eradicator 06/10/20 Mio Mclean MD [address] [address] Assigned Cancer Care Provider 05/10/20 07/25/20 Luna Simons MD 420 [facility] 480 [place] [address] Assigned Cancer Care Provider 04/22/20 05/09/20 Luna Simons MD 420 [facility] 480 [place] [address] Assigned Cancer Care Provider 07/26/20 06/26/21 Jose Zaragoza, SHOT LIGHTER 6405 [place] [address] Assigned Heart and Vascular Provider 11/08/20 02/04/22 Mio Mclean MD 420 [facility] 494 [place] [address] Assigned Cancer Care Provider 06/27/21 09/11/21 Luna Simons MD 420 [facility] 480 [place] [address] Assigned Cancer Care Provider 09/12/21 01/18/24 Nadja Hagen MD [address] [place] [address] Floor 2, [address] [place], [place] 252314 Resident Psychiatry 04/01/22 05/13/24 Batool Atkinson, PhD LP 2450 [facility] F282 [place], [place] 106174 Psychologist Licensed Mental Health 04/01/22 Prisca Miller MD 6 [facility] 295 [place], [place] 333065 Resident Neurology 02/10/23 Jennyfer Steele APRN COMPOSING ROOM SUPERVISOR [facility] [place] [address] [place] [address] Nurse Practitioner Psychiatry 02/23/23 Jennyfer Steele APRN COMPOSING ROOM SUPERVISOR [facility] S [facility] F275 [place] [address] Assigned Behavioral Health Provider 06/30/23 Sadaf Apple NP Assigned PCP 07/21/23 09/18/23 [facility] [address] [place] [address] Assigned PCP 09/19/23 Yamel Saha PA-C [address] 579125 Assigned Cancer Care Provider 01/19/24 04/19/24 Luna Simons MD [address] [address] Assigned Cancer Care Provider 04/20/24 documented as of this encounter
--- OUTSIDE RECORDS SUMMARY | 2024-10-15 18:41 | XMS_ITS | Encounter Summary ---
Author Organization [facility] Address [address] [place] [address] Care Team Providers Care Foreign Student Adviser Name Role Phone Cyndie Eisenberg NP Primary Care Provider + Rodney Natarajan MD Unavailable [phone] Luna Simons MD Unavailable Caroline Duque RN Unavailable [phone] Martha White MD Unavailable Pedrito Ramirez MD Unavailable [phone] Rodney Natarajan MD Unavailable [phone] Luna Simons MD Unavailable Martha White MD Unavailable Mio Mclean MD Unavailable [phone] Ankita Park MD Unavailable [phone] Ankita Park MD Unavailable [phone] Mio Mclean MD Unavailable [phone] Luna Simons MD Unavailable [phone] Luna Simons MD Unavailable [phone] Jose Zaragoza NP Unavailable Mio Mclean MD Unavailable Luna Simons MD Unavailable [phone] Nadja Hagen MD Unavailable [phone] Batool Atkinson PhD LP Unavailable [phone] Prisca Miller MD Unavailable [phone] Ramin Steelen Ravi SPINNING OPERATOR LAUNDRETTE OWNER Unavailable + IvetteJennyfer vaughan APRN LAUNDRETTE OWNER Unavailable + Sadaf Apple NP Unavailable Unavailable Clinic - [facility] Unavailabl e Yamel Saha PA-C Unavailable [phone] Luna Simons MD Unavailable [phone] Encounter Details Date Type Department Care Team (Late st Contact Info) Description 11/14/2019 MyC Medical Advice [facility] Cancer [address] [address] [facility] Social History Tobacco Use Types Packs/Day Years [...] Ancillary Procedure [facility] Imaging [address] 2nd [place] [address] Luna Simons MD [address] [place] [address] 09/15/2025 10:00 AM CDT Oncology Visit [facility] Cancer [address] [place] [phone] Luna Simons MD 420 [facility] 480 [place], [place] 119565 documented as of this encounter Visit Diagnoses Not on filedocumented in this encounter Additional Health Concerns Infection Onset Date Last Indicated Resolved Time Rule Out COVID-19 01/24/2023 01/24/2023 01/24/2023 10:32 PM CDT documented as of this encounter Care Teams Foreign Student Adviser Relationship Specialty Start Date End Date Cyndie Eisenberg, DATACAP DEVELOPER [address] [place] [address] PCP - General 09/25/19 Rodney Natarajan MD [address] [place] [address] [phone] General Surgery 09/25/19 Luna Simons MD [address] [place] [address] 808625 Hematology 09/25/19 Caroline Duque, RN Specialty Deputy Director Of Finance Breast Oncology 09/30/19 Martha White MD [facility]2 [address] [place] [address] [address] [place] [address] skiver counter 11/01/19 Pedrito Ramirez MD 6405 [facility] [address]200 [place], [place] 039775 Assigned Heart and Vascular Provider 03/20/20 11/07/20 Rodney Natarajan MD [address] [place] [address] 195 [place], [place] 8[address]995 Assigned Surgical Provider 03/20/20 08/07/21 Luna Simons MD 420 [facility] 480 [place] [address] Assigned Cancer Care Provider 03/20/20 04/11/20 Martha White MD [facility] [address] [place], [place] [address] Assigned Behavioral Health Provider 03/20/20 05/02/20 Mio Mclean MD [address] [address] Assigned Cancer Care Provider 04/12/20 04/21/20 Ankita Park MD [address] [place] [phone] Assigned Behavioral Health Provider 05/03/20 06/29/23 Ankita Park MD [address] [place] [address] [phone] skiver counter 06/10/20 Mio Mclean MD [address] [address] Assigned Cancer Care Provider 05/10/20 07/25/20 Luna Simons MD 420 [facility] 480 [place] [address] Assigned Cancer Care Provider 04/22/20 05/09/20 Luna Simons MD 420 [facility] 480 [place] [address] Assigned Cancer Care Provider 07/26/20 06/26/21 Jose Zaragoza, DATACAP DEVELOPER [address] [facility] [place] [address] Assigned Heart and Vascular Provider 11/08/20 02/04/22 Mio Mclean MD 420 [facility] 494 [place] [address] Assigned Cancer Care Provider 06/27/21 09/11/21 Luna Simons MD 420 [facility] 480 [place] [address] Assigned Cancer Care Provider 09/12/21 01/18/24 Nadja Hagen MD [address] [place] [address] Floor 2, [address] [place], [place] 394964 Resident Psychiatry 04/01/22 05/13/24 Batool Atkinson, PhD LP 2450 [facility] F282 [place], [place] [address] Psychologist Licensed Mental Health 04/01/22 Prisca Miller MD 6 [facility] 295 [place], [place] 0[address] Resident Neurology 02/10/23 Jennyfer Steele APRN LAUNDRETTE OWNER [facility] [place] [address] [place] [address] Nurse Practitioner Psychiatry 02/23/23 Jennyfer Steele APRN LAUNDRETTE OWNER [facility]2 S [facility] F275 [place] [address] Assigned Behavioral Health Provider 06/30/23 Sadaf Apple NP Assigned PCP 07/21/23 09/18/23 [facility] [address] [place] [address] Assigned PCP 09/19/23 Yamel Saha PA-C [address] 717[address] Assigned Cancer Care Provider 01/19/24 04/19/24 Luna Simons MD [address] [address] Assigned Cancer Care Provider 04/20/24 documented as of this encounter
--- OUTSIDE RECORDS SUMMARY | 2024-10-15 18:41 | XMS_ITS | Encounter Summary ---
Author Organization [facility] Address [address] [place] [address] Care Team Providers Care Monologist Name Role Phone Cyndie Eisenberg NP Primary Care Provider + Rodney Natarajan MD Unavailable [phone] Luna Simons MD Unavailable [phone] Caroline Duque RN Unavailable [phone] Martha White MD Unavailable Pedrito Ramirez MD Unavailable [phone] Rodney Natarajan MD Unavailable [phone] Luna Simons MD Unavailable Martha White MD Unavailable [phone] Mio Mclean MD Unavailable [phone] Ankita Park MD Unavailable [phone] Ankita Park MD Unavailable [phone] Mio Mclean MD Unavailable [phone] Luna Simons MD Unavailable [phone] Luna Simons MD Unavailable [phone] Jose Zaragoza NP Unavailable Mio Mclean MD Unavailable [phone] Luna Simons MD Unavailable [phone] Nadja Hagen MD Unavailable [phone] Batool Atkinson PhD LP Unavailable [phone] Prisca Miller MD Unavailable [phone] Ramin Steelen Ravi NAPHTHA WASHING SYSTEM OPERATOR CENTER LEAD CONSULTANT Unavailable + IvetteJennyfer vaughan APRN CENTER LEAD CONSULTANT Unavailable + Sadaf Apple NP Unavailable Unavailable Clinic - [facility] Unavailabl e Yamel Saha PA-C Unavailable [phone] Luna Simons MD Unavailable +[phone] Encounter Details Date Type Department Care Team (Late st Contact Info) Description 11/26/2019 MyC Medical Advice [facility] Cancer [address] [address] [facility] Social History Tobacco Use Types Packs/Day [...] Procedure [facility] Breast Center Imaging [address] 2nd [place] [address] Luna Simons MD [address] [place] [address] 09/15/2025 10:00 AM CDT Oncology Visit [facility] Cancer [address] [place] [phone] Luna Simons MD 420 [facility] 480 [place], [place] 532365 documented as of this encounter Visit Diagnoses Not on filedocumented in this encounter Additional Health Concerns Infection Onset Date Last Indicated Resolved Time Rule Out COVID-19 01/24/2023 01/24/2023 01/24/2023 10:32 PM CDT documented as of this encounter Care Teams Monologist Relationship Specialty Start Date End Date Cyndie Eisenberg, DIESEL FITTER MECHANIC [address] [place] [address] PCP - General 09/25/19 Rodney Natarajan MD [address] [place] [address] 188095 General Surgery 09/25/19 Luna Simons MD [address] [place] [address] 204885 Hematology 09/25/19 Caroline Duque, RN Specialty Plasma Processing Technician Breast Oncology 09/30/19 Martha White MD [facility] [place] [address] [address] [place] [address] supervisor area 11/01/19 Pedrito Ramirez MD 6405 [facility] [address]200 [place], [place] 268895 Assigned Heart and Vascular Provider 03/20/20 11/07/20 Rodney Natarajan MD [address] [place] [address] 195 [place], [place] 505385 Assigned Surgical Provider 03/20/20 08/07/21 Luna Simons MD 420 [facility] 480 [place] [address] Assigned Cancer Care Provider 03/20/20 04/11/20 Martha White MD [facility] [place], [place] 239214 Assigned Behavioral Health Provider 03/20/20 05/02/20 Mio Mclean MD [address] [address] Assigned Cancer Care Provider 04/12/20 04/21/20 Ankita Park MD [address] [place] [phone] Assigned Behavioral Health Provider 05/03/20 06/29/23 Ankita Park MD [address] [place] [address] [phone] supervisor area 06/10/20 Mio Mclean MD [address] [address] Assigned Cancer Care Provider 05/10/20 07/25/20 Luna Simons MD 420 [facility] 480 [place] [address] Assigned Cancer Care Provider 04/22/20 05/09/20 Luna Simons MD 420 [facility] 480 [place] [address] Assigned Cancer Care Provider 07/26/20 06/26/21 Jose Zaragoza, DIESEL FITTER MECHANIC 6405 [facility] [place] [address] Assigned Heart and Vascular Provider 11/08/20 02/04/22 Mio Mclean MD 420 [facility] 494 [place] [address] Assigned Cancer Care Provider 06/27/21 09/11/21 Luna Simons MD 420 [facility] 480 [place] [address] Assigned Cancer Care Provider 09/12/21 01/18/24 Nadja Hagen MD [address] [place] [address] Floor 2, [address] [place], [place] 17[address]24 Resident Psychiatry 04/01/22 05/13/24 Batool Atkinson, PhD LP 2450 [facility] F282 [place], [place] 613224 Psychologist Licensed Mental Health 04/01/22 Prisca Miller MD 6 [facility] 295 [place], [place] 6[address]385 Resident Neurology 02/10/23 Jennyfer Steele APRN CENTER LEAD CONSULTANT [facility] [place] [address] [place] [address] Nurse Practitioner Psychiatry 02/23/23 Jennyfer Steele APRN CENTER LEAD CONSULTANT [facility] [facility] F275 [place] [address] Assigned Behavioral Health Provider 06/30/23 Sadaf Apple NP Assigned PCP 07/21/23 09/18/23 [facility] [address] [place] [address] Assigned PCP 09/19/23 Yamel Saha PA-C [address] 785985 Assigned Cancer Care Provider 01/19/24 04/19/24 Luna Simons MD [address] [address] Assigned Cancer Care Provider 04/20/24 documented as of this encounter
--- OUTSIDE RECORDS SUMMARY | 2024-10-15 18:41 | XMS_ITS | Encounter Summary ---
Author Organization [facility] Address [address] [place] [address] Care Team Providers Care Outpatient Case Manager Name Role Phone Cyndie Eisenberg NP Primary Care Provider + Rodney Natarajan MD Unavailable [phone] Luna Simons MD Unavailable Caroline Duque RN Unavailable [phone] Martha White MD Unavailable Pedrito Ramirez MD Unavailable [phone] Rodney Natarajan MD Unavailable [phone] Luna Simons MD Unavailable Martha White MD Unavailable Mio Mclean MD Unavailable [phone] Ankita Park MD Unavailable [phone] Ankita Park MD Unavailable [phone] Mio Mclean MD Unavailable [phone] Luna Simons MD Unavailable [phone] Luna Simons MD Unavailable Jose Zaragoza NP Unavailable Mio Mclean MD Unavailable [phone] Luna Simons MD Unavailable [phone] Nadja Hagen MD Unavailable +[phone] Batool Atkinson PhD LP Unavailable [phone] Prisca Miller MD Unavailable +[phone] Ivette Jennyferjulieth Rodrigues APRN INTERVENTIONAL TECH Unavailable + Jennyfer Steele APRN INTERVENTIONAL TECH Unavailable + Sadaf Apple NP Unavailable Unavailable Clinic - [facility] Unavailabl e Yamel Saha PA-C Unavailable [phone] Luna Simons MD Unavailable [phone] Encounter Details Date Type Department Care Team (Late st Contact Info) Description 02/14/[address] [facility] [address] [place] [address] Luna Simons MD [address] [address] Social History Tobacco Use Types [...] [facility] Imaging [address] 2nd [place] [address] Luna Simons MD 420 [facility] 480 [place], [place] [address] 09/15/2025 10:00 AM CDT Oncology Visit [facility] Cancer Clinic [address] [place] [phone] Luna Simons MD 420 [facility] 480 [place], [place] 8[address] documented as of this encounter Visit Diagnoses Not on filedocumented in this encounter Additional Health Concerns Infection Onset Date Last Indicated Resolved Time Rule Out COVID-19 01/24/2023 01/24/2023 01/24/2023 10:32 PM CDT documented as of this encounter Care Teams Outpatient Case Manager Relationship Specialty Start Date End Date Cyndie Eisenberg, AMANDA [address] [place] [address] PCP - General 09/25/19 Rodney Natarajan MD 420 [facility] 195 [place], [place] [address] General Surgery 09/25/19 Luna Simons MD 420 [facility] 480 [place], [place] 54[address] Hematology 09/25/19 Caroline Duque, RN Specialty Track Layer Head Breast Oncology 09/30/19 Martha White MD [address] [place] [address] [address] [place], [place] 168324 informatics scientist 11/01/19 Pedrito Ramirez MD 6405 [facility] [address]200 [place], [place] 77[address] Assigned Heart and Vascular Provider 03/20/20 11/07/20 Rodney Natarajan MD 420 [facility] 195 [place] [address] Assigned Surgical Provider 03/20/20 08/07/21 Luna Simons MD 420 [facility] 480 [place] [address] Assigned Cancer Care Provider 03/20/20 04/11/20 Martha White MD [address] [place] [address] F275 [place] [address] Assigned Behavioral Health Provider 03/20/20 05/02/20 Mio Mclean MD 420 [facility] 494 [place] [address] Assigned Cancer Care Provider 04/12/20 04/21/20 Ankita Park MD [address] [place] [phone] Assigned Behavioral Health Provider 05/03/20 06/29/23 Ankita Park MD [address] [place] [phone] informatics scientist 06/10/20 Mio Mclean MD 420 [facility] 494 [place] [address] Assigned Cancer Care Provider 05/10/20 07/25/20 Luna Simons MD 420 [facility] 480 [place] [address] Assigned Cancer Care Provider 04/22/20 05/09/20 Luna Simons MD 420 [facility] 480 [place] [address] Assigned Cancer Care Provider 07/26/20 06/26/21 Jose Zaragoza, BUGGY MAN 6405 [facility] [place] [address] Assigned Heart and Vascular Provider 11/08/20 02/04/22 Mio Mclean MD 420 [facility] 494 [place] [address] Assigned Cancer Care Provider 06/27/21 09/11/21 Luna Simons MD 420 [facility] 480 [place], [place] [address]375 Assigned Cancer Care Provider 09/12/21 01/18/24 Nadja Hagen MD 2312 S [facility] Floor 2, [address] [place], [place] 8[address] Resident Psychiatry 04/01/22 05/13/24 Batool Atkinson, PhD LP 2450 [facility] F282 [place], [place] 9635[address] Psychologist Licensed Mental Health 04/01/22 Prisca Miller MD 516 [facility] 295 [place], [place] 4450[address] Resident Neurology 02/10/23 Jennyfer Steele APRN INTERVENTIONAL TECH 2312 S [facility] [place] [address] [place], [place] 2929[address] Nurse Practitioner Psychiatry 02/23/23 Jennyfer Steele APRN INTERVENTIONAL TECH 2312 [facility] [place] [address] [place], [place] 504904 Assigned Behavioral Health Provider 06/30/23 Sadaf Apple NP Assigned PCP 07/21/23 09/18/23 [facility] [address] [place] [address] Assigned PCP 09/19/23 Yamel Saha PA-C 420 [facility] 480 [place] [address] Assigned Cancer Care Provider 01/19/24 04/19/24 Luna Simons MD 420 [facility] 480 [place] [address] Assigned Cancer Care Provider 04/20/24 documented as of this encounter
--- OUTSIDE RECORDS SUMMARY | 2024-10-15 18:41 | XMS_ITS | Encounter Summary ---
Author Organization [facility] Address [address] [place] [address] Care Team Providers Care Lead Investigator Name Role Phone Cyndie Eisenberg NP Primary Care Provider + Rodney Natarajan MD Unavailable [phone] Luna Simons MD Unavailable [phone] Carolien Duque RN Unavailable [phone] Martha White MD Unavailable Pedrito Ramirez MD Unavailable +[phone] Rodney Natarajan MD Unavailable [phone] Luna Simons MD Unavailable Martha White MD Unavailable Mio Mclean MD Unavailable [phone] Ankita Park MD Unavailable [phone] Ankita Park MD Unavailable [phone] Mio Mclean MD Unavailable [phone] Luna Simons MD Unavailable Luna Simons MD Unavailable Jose Zaragoza NP Unavailable Mio Mclean MD Unavailable [phone] Luna Simons MD Unavailable +[phone] Nadja Hagen MD Unavailable +[phone] Batool Atkinson PhD LP Unavailable [phone] Prisca Miller MD Unavailable +[phone] Ramin Steelen Ravi KEVIN WHANAU SUPPORT WORKER Unavailable + IvetteJennyfer vaughan APRN WHANAU SUPPORT WORKER Unavailable + Sadaf Apple NP Unavailable Unavailable [facility] Unavailabl e Yamel Saha PA-C Unavailable +[phone] Luna Simons MD Unavailable [phone] Encounter Details Date Type Department Care Team (Late st Contact Info) Description 02/10/[address] [facility] [address] [address] Rodney Natarajan MD [address] [address] Social History Tobacco Use [...] CDT Ancillary Procedure [facility] [place] [facility] [address] 2nd [place] [address] Luna Simons MD 420 [facility] 480 [place], [place] 320445 09/15/2025 10:00 AM CDT Oncology Visit [facility] [address] [facility] [place] [phone] Luna Simons MD 420 [facility] [place] 480 [place], [place] 206525 documented as of this encounter Visit Diagnoses Not on filedocumented in this encounter Additional Health Concerns Infection Onset Date Last Indicated Resolved Time Rule Out COVID-19 01/24/2023 01/24/2023 01/24/2023 10:32 PM CDT documented as of this encounter Care Teams Lead Investigator Relationship Specialty Start Date End Date Cyndie Eisenberg, AMANDA [address] [place] [address] PCP - General 09/25/19 Rodney Natarajan MD 420 [facility] [place] 195 [place], [place] 830195 General Surgery 09/25/19 Luna Simons MD 420 [facility] [place] 480 [place], [place] 783455 Hematology 09/25/19 Caroline Duque, RN Specialty Nfl Player Breast Oncology 09/30/19 Martha White MD [address] [place] [address] [address] [place], [place] 603714 fireworks display specialist 11/01/19 Pedrito Ramirez MD [address] [facility] [address] [place], [place] 038505 Assigned Heart and Vascular Provider 03/20/20 11/07/20 Rodney Natarajan MD 420 [place] [facility] 195 [place], [place] 747915 Assigned Surgical Provider 03/20/20 08/07/21 Luna Simons MD 420 [facility] 480 [place] [address] Assigned Cancer Care Provider 03/20/20 04/11/20 Martha White MD [address] [place] [address] [address] [place], [place] 9[address]64 Assigned Behavioral Health Provider 03/20/20 05/02/20 Mio Mclean MD 420 [facility] [place] 494 [place] [address] Assigned Cancer Care Provider 04/12/20 04/21/20 Ankita Park MD [address] [place] [address] Assigned Behavioral Health Provider 05/03/20 06/29/23 Ankita Park MD [address] [place] [phone] fireworks display specialist 06/10/20 Mio Mclean MD 420 [facility] [place] 494 [place] [address] Assigned Cancer Care Provider 05/10/20 07/25/20 Luna Simons MD 420 [facility] [place] 480 [place] [address] Assigned Cancer Care Provider 04/22/20 05/09/20 Luna Simons MD 420 [facility] [place] 480 [place] [address] Assigned Cancer Care Provider 07/26/20 06/26/21 Jose Zaragoza, NETWORKING ENGINEER 6405 [place] [address] Assigned Heart and Vascular Provider 11/08/20 02/04/22 Mio Mclean MD 420 [facility] [place] 494 [place] [address] Assigned Cancer Care Provider 06/27/21 09/11/21 Luna Simons MD 420 [facility] [place] 480 [place] [address] Assigned Cancer Care Provider 09/12/21 01/18/24 Nadja Hagen MD [address] 2, [address] [place], [place] 9[address]344 Resident Psychiatry 04/01/22 05/13/24 Batool Atkinson, PhD LP 2450 [facility] F282 [place], [place] [address] Psychologist Licensed Mental Health 04/01/22 Prisca Miller MD 516 [facility] 295 [place] [address] Resident Neurology 02/10/23 Jennyfer Steele APRN WHANAU SUPPORT WORKER 2312 S [facility] [address] [place] [address] Nurse Practitioner Psychiatry 02/23/23 Jennyfer Steele APRN WHANAU SUPPORT WORKER 2312 [address] [facility] [address] [place] [address] Assigned Behavioral Health Provider 06/30/23 Sadaf Apple NP Assigned PCP 07/21/23 09/18/23 [facility] [address] [place] [address] Assigned PCP 09/19/23 Yamel Saha PA-C 420 [facility] 480 [place], [place] 087805 Assigned Cancer Care Provider 01/19/24 04/19/24 Luna Simons MD 420 [facility] [place] 480 [place], [place] 235015 Assigned Cancer Care Provider 04/20/24 documented as of this encounter
--- OUTSIDE RECORDS SUMMARY | 2024-10-15 18:41 | XMS_ITS | Encounter Summary ---
Author Organization [facility] Address [address] [place] [address] Care Team Providers Care Supervisor Receiving And Processing Name Role Phone Cyndie Eisenberg NP Primary Care Provider + Rodney Natarajan MD Unavailable [phone] Luna Simons MD Unavailable Caroline Duque RN Unavailable [phone] Martha White MD Unavailable Pedrito Ramirez MD Unavailable [phone] Rodney Natarajan MD Unavailable [phone] Luna Simons MD Unavailable Martha White MD Unavailable Mio Mclean MD Unavailable [phone] Ankita Park MD Unavailable [phone] Ankita Park MD Unavailable [phone] Mio Mclean MD Unavailable [phone] Luna iSmons MD Unavailable [phone] Luna Simons MD Unavailable Jose Zaragoza NP Unavailable [phone] Mio Mclean MD Unavailable [phone] Luna Simons MD Unavailable [phone] Nadja Hagen MD Unavailable [phone] Batool Atkinson PhD LP Unavailable [phone] Prisca Miller MD Unavailable [phone] Ivette Jennyferjulieth Rodrigues APRN EXPEDITIONARY FORCE COMBAT SKILLS Unavailable + Jennyfer Steele APRN EXPEDITIONARY FORCE COMBAT SKILLS Unavailable + Sadaf Apple NP Unavailable Unavailable [facility] Unavailabl e Yamel Saha PA-C Unavailable [phone] Luna Simons MD Unavailable [phone] Encounter Details Date Type Department Care Team (Late st Contact Info) Description 01/22/2020 MyC Medical Advice [facility] [address] [place] [address] Luna Simons MD [address] [address] Social History Tobacco Use Types [...] CDT Ancillary Procedure [facility] Imaging [address] 2nd [place] [address] Luna Simons MD 420 [facility] 480 [place], [place] 567355 09/15/2025 10:00 AM CDT Oncology Visit [facility] 9[address] [facility] [place] [phone] Luna Simons MD 420 [facility] 480 [place], [place] 878245 documented as of this encounter Visit Diagnoses Not on filedocumented in this encounter Additional Health Concerns Infection Onset Date Last Indicated Resolved Time Rule Out COVID-19 01/24/2023 01/24/2023 01/24/2023 10:32 PM CDT documented as of this encounter Care Teams Supervisor Receiving And Processing Relationship Specialty Start Date End Date Cyndie Eisenberg, AMANDA [address] [place] [address] PCP - General 09/25/19 Rodney Natarajan MD 420 [facility] 195 [place], [place] 349425 General Surgery 09/25/19 Luna Simons MD 420 [facility] 480 [place], [place] [address] Hematology 09/25/19 Caroline Duque, RN Specialty Customer Management Specialist Breast Oncology 09/30/19 Martha White MD [address] [place] [address] [address] [place], [place] 884664 overhead distribution engineer 11/01/19 Pedrito Ramirez MD 6405 [facility] [address] [place], [place] [address] Assigned Heart and Vascular Provider 03/20/20 11/07/20 Rodney Natarajan MD 420 [place] [facility] 195 [place] [address] Assigned Surgical Provider 03/20/20 08/07/21 Luna Simons MD 420 [facility] 480 [place] [address] Assigned Cancer Care Provider 03/20/20 04/11/20 Martha White MD [address] [place] [address] F275 [place] [address] Assigned Behavioral Health Provider 03/20/20 05/02/20 Mio Mclean MD 420 [facility] 494 [place] [address] Assigned Cancer Care Provider 04/12/20 04/21/20 Ankita Park MD [address] [place] [phone] Assigned Behavioral Health Provider 05/03/20 06/29/23 Aknita Park MD [address] [place] [phone] overhead distribution engineer 06/10/20 Mio Mclean MD 420 [place] [address] [facility] 494 [place] [address] Assigned Cancer Care Provider 05/10/20 07/25/20 Luna Simons MD 420 [facility] 480 [place] [address] Assigned Cancer Care Provider 04/22/20 05/09/20 Luna Simons MD 420 [facility] 480 [place] [address] Assigned Cancer Care Provider 07/26/20 06/26/21 Jose Zaragoza, COMIC ILLUSTRATOR 6405 [facility] [address] Assigned Heart and Vascular Provider 11/08/20 02/04/22 Mio Mclean MD 420 [facility] 494 [place] [address] Assigned Cancer Care Provider 06/27/21 09/11/21 Luna Simons MD 420 [facility] 480 [place], [place] 161235 Assigned Cancer Care Provider 09/12/21 01/18/24 Nadja Hagen MD 2312 S [facility] Floor 2, [address] [place], [place] 24[address] Resident Psychiatry 04/01/22 05/13/24 Batool Atkinson, PhD LP 2450 [facility] F[address] [place], [place] 88[address]84 Psychologist Licensed Mental Health 04/01/22 Prisca Miller MD 516 [facility] 295 [place], [place] 904445 Resident Neurology 02/10/23 Jennyfer Steele APRN EXPEDITIONARY FORCE COMBAT SKILLS 23[address] S [facility] [place] F[address] [place], [place] 0[address] Nurse Practitioner Psychiatry 02/23/23 Jennyfer Steele APRN EXPEDITIONARY FORCE COMBAT SKILLS 23[address] [facility] [place] [address] [place], [place] 687044 Assigned Behavioral Health Provider 06/30/23 Sadaf Apple NP Assigned PCP 07/21/23 09/18/23 [facility] [address] [place] [address] Assigned PCP 09/19/23 Yamel Saha PA-C 420 [facility] 480 [place] [address] Assigned Cancer Care Provider 01/19/24 04/19/24 Luna Simons MD 420 [facility] 480 [place] [address] Assigned Cancer Care Provider 04/20/24 documented as of this encounter
--- OUTSIDE RECORDS SUMMARY | 2024-10-15 18:41 | XMS_ITS | Encounter Summary ---
Author Organization [facility] Address [address] [place] [address] Care Team Providers Care Belt Loop Maker Name Role Phone Cyndie Eisenberg NP Primary Care Provider + Rodney Natarajan MD Unavailable [phone] Luna Simons MD Unavailable [phone] Caroline Duque RN Unavailable [phone] Martha White MD Unavailable Pedrito Ramirez MD Unavailable [phone] Rodney Natarajan MD Unavailable [phone] Luna Simons MD Unavailable Martha White MD Unavailable Mio Mclean MD Unavailable [phone] Ankita Park MD Unavailable [phone] Ankita Park MD Unavailable [phone] Mio Mclean MD Unavailable [phone] Luna Simons MD Unavailable Luna Simons MD Unavailable +[phone] Jose Zaragoza NP Unavailable [phone] Mio Mclean MD Unavailable [phone] Luna Simons MD Unavailable [phone] Nadja Hagen MD Unavailable +[phone] Batool Atkinson PhD LP Unavailable [phone] Prisca Miller MD Unavailable +[phone] Ramin Steelen Ravi HUMAN RESOURCES TRAINER FOLLOW UP SPECIALIST Unavailable + Jennyfer Steele APRN FOLLOW UP SPECIALIST Unavailable + Sadaf Apple NP Unavailable Unavailable [facility] Unavailabl e Yamel Saha PA-C Unavailable +[phone] Luna Simons MD Unavailable +[phone] Encounter Details Date Type Department Care Team (Late st Contact Info) Description 03/18/2020 [facility] Medical Advice [facility] [address] [place] [address] [facility] Social History Tobacco Use Types Packs/Day Years [...] [facility] Breast [facility] Imaging [place] [address] [place] [address] 2nd [place] [address] Luna Simons MD [address] [address] 09/15/2025 10:00 AM CDT Oncology Visit [facility] 909 [place] [phone] Luna Simons MD 420 [facility] 480 [place] [address] documented as of this encounter Visit Diagnoses Not on filedocumented in this encounter Additional Health Concerns Infection Onset Date Last Indicated Resolved Time Rule Out COVID-19 01/24/2023 01/24/2023 01/24/2023 10:32 PM CDT documented as of this encounter Care Teams Belt Loop Maker Relationship Specialty Start Date End Date Cyndie Eisenberg FRACTIONATION PLANT SUPERVISOR [address] [place] [address] PCP - General 09/25/19 Rodney Natarajan MD 420 [facility] 195 [place] [address] General Surgery 09/25/19 Luna Simons MD [address] [place] [address] 480 [place] [address] Hematology 09/25/19 Caroline Duque, ASHLIE Specialty Molecular Genetic Pathologist Breast Oncology 09/30/19 Martha White MD [address] [place] [address] [place], [place] 6933[address] heavy mobile equipment operator 11/01/19 Pedrito Ramirez MD [address] [place] [address] [place] [address] Assigned Heart and Vascular Provider 03/20/20 11/07/20 Rodney Natarajan MD 420 [place] [facility] 195 [place] [address] Assigned Surgical Provider 03/20/20 08/07/21 Luna Simons MD 420 [place] [facility] 480 [place] [address] Assigned Cancer Care Provider 03/20/20 04/11/20 Martha White MD [address] [place] [address] [address] [place], [place] 612814 Assigned Behavioral Health Provider 03/20/20 05/02/20 Mio Mclean MD 420 [place] [facility] 494 [place] [address] Assigned Cancer Care Provider 04/12/20 04/21/20 Ankita Park MD [facility] [address] [phone] Assigned Behavioral Health Provider 05/03/20 06/29/23 Ankita Park MD [address] [place] [phone] heavy mobile equipment operator 06/10/20 Mio Mclean MD 420 [place] [facility] 494 [place] [address] Assigned Cancer Care Provider 05/10/20 07/25/20 Luna Simons MD 420 [place] [facility] 480 [place] [address] Assigned Cancer Care Provider 04/22/20 05/09/20 Luna Simons MD 420 [facility] 480 [place], [place] [address] Assigned Cancer Care Provider 07/26/20 06/26/21 Jose Zaragoza, FRACTIONATION PLANT SUPERVISOR 6405 [facility] [place] 2099[address] Assigned Heart and Vascular Provider 11/08/20 02/04/22 Mio Mclean MD 420 [facility] 494 [place], [place] 0[address]25 Assigned Cancer Care Provider 06/27/21 09/11/21 Luna Simons MD 420 [facility] 480 [place], [place] 561585 Assigned Cancer Care Provider 09/12/21 01/18/24 Nadja Hagen MD [facility] [address] Floor 2, [address] [place], [place] [address] Resident Psychiatry 04/01/22 05/13/24 Batool Atkinson, PhD LP 2450 [place] 1499682 [place], [place] 352774 Psychologist Licensed Mental Health 04/01/22 Prisca Miller MD 6 [facility] 295 [place], [place] 7[address] Resident Neurology 02/10/23 Jennyfer Steele APRN FOLLOW UP SPECIALIST [address] [place] [address] [place], [place] 174854 Nurse Practitioner Psychiatry 02/23/23 Jennyfer Steele APRN FOLLOW UP SPECIALIST [address] [place] [address] Assigned Behavioral Health Provider 06/30/23 Sadaf Apple NP Assigned PCP 07/21/23 09/18/23 [facility] [address] [place] [address] Assigned PCP 09/19/23 Yamel Saha PA-C [address] [address] Assigned Cancer Care Provider 01/19/24 04/19/24 Luna Simons MD [address] 808675 Assigned Cancer Care Provider 04/20/24 documented as of this encounter
--- OUTSIDE RECORDS SUMMARY | 2024-10-15 18:41 | XMS_ITS | Encounter Summary ---
Author Organization [facility] Address [address] [place] [address] Care Team Providers Care General Office Clerk Name Role Phone Cyndie Eisenberg NP Primary Care Provider + Rodney Natarajan MD Unavailable [phone] Luna Simons MD Unavailable Caroline Duque RN Unavailable [phone] Martha White MD Unavailable Pedrito Ramirez MD Unavailable [phone] Rodney Natarajan MD Unavailable [phone] Luna Simons MD Unavailable Martha White MD Unavailable Mio Mclean MD Unavailable [phone] Ankita Park MD Unavailable [phone] Ankita Park MD Unavailable [phone] Mio Mclean MD Unavailable [phone] Luna Simons MD Unavailable Luna Simons MD Unavailable +[phone] Jose Zaragoza NP Unavailable Mio Mclean MD Unavailable [phone] Luna Simons MD Unavailable [phone] Nadja Hagen MD Unavailable [phone] Batool Atkinson PhD LP Unavailable [phone] Prisca Miller MD Unavailable [phone] Ivette Jennyferjulieth Rodrigues APRN DIRECTOR CENTER Unavailable + Jennyfer Steele APRN DIRECTOR CENTER Unavailable + Sadaf Apple NP Unavailable Unavailable [facility] Unavailabl e Yamel Saha PA-C Unavailable +[phone] Luna Simons MD Unavailable [phone] Encounter Details Date Type Department Care Team (Late st Contact Info) Description 03/25/2020 MyC Medical Advice [facility] [place] [id number] [address] [address] Ankita Park MD [address] [address] Social History Tobacco Use Types [...] Procedure [facility] Breast Center Imaging [address] 2nd [place] [phone] Luna Simons MD 420 [facility] 480 [place], [place] 537285 09/15/2025 10:00 AM CDT Oncology Visit [facility] 909 [place] [address] Luna Simons MD 420 [facility] 480 [place], [place] 695[address] documented as of this encounter Visit Diagnoses Not on filedocumented in this encounter Additional Health Concerns Infection Onset Date Last Indicated Resolved Time Rule Out COVID-19 01/24/2023 01/24/2023 01/24/2023 10:32 PM CDT documented as of this encounter Care Teams General Office Clerk Relationship Specialty Start Date End Date Cyndie Eisenberg, AMANDA 100 [facility] [place] [address] PCP - General 09/25/19 Rodney Natarajan MD [address] [place] [address] 195 [place] [address] General Surgery 09/25/19 Luna Simons MD [address] [place] [address] 480 [place], [place] [address]265 Hematology 09/25/19 Caroline Duque, RN Specialty Meat Smoker Breast Oncology 09/30/19 Martha White MD [address] [place] [address] [address] [place] [address] public health policy analyst 11/01/19 Pedrito Ramirez MD [address] [facility] [place] [address] [place] [address] Assigned Heart and Vascular Provider 03/20/20 11/07/20 Rodney Natarajan MD 420 [place] [facility] 195 [place] [address] Assigned Surgical Provider 03/20/20 08/07/21 Luna Simons MD 420 [place] [facility] 480 [place] [address] Assigned Cancer Care Provider 03/20/20 04/11/20 Martha White MD 2312 S [facility] [place] [address] [place], [place] [address]454 Assigned Behavioral Health Provider 03/20/20 05/02/20 Mio Mclean MD 420 [place] [facility] 494 [place], [place] 68[address] Assigned Cancer Care Provider 04/12/20 04/21/20 Ankita Park MD [facility]50 [facility] [place] [phone] Assigned Behavioral Health Provider 05/03/20 06/29/23 Ankita Park MD 2450 [facility] [place] [address] public health policy analyst 06/10/20 Mio cMlean MD 420 [facility] 494 [place] [address] Assigned Cancer Care Provider 05/10/20 07/25/20 Luna Simons MD 420 [facility] 480 [place] [address] Assigned Cancer Care Provider 04/22/20 05/09/20 Luna Simons MD 420 [facility] 480 [place] [address] Assigned Cancer Care Provider 07/26/20 06/26/21 Jose Zaragoza, STRATEGIC ACCOUNTS MANAGER [address] [place] 10[address]45 Assigned Heart and Vascular Provider 11/08/20 02/04/22 Mio Mclean MD 420 [facility] 494 [place], [place] [address] Assigned Cancer Care Provider 06/27/21 09/11/21 Luna Simons MD 420 [facility] 480 [place], [place] 559[address] Assigned Cancer Care Provider 09/12/21 01/18/24 Nadja Hagen MD 2312 S [facility] Floor 2, [address] [place], [place] [address] Resident Psychiatry 04/01/22 05/13/24 Batool Atkinson, PhD LP 2450 [facility] [address] [place], [place] [address] Psychologist Licensed Mental Health 04/01/22 Prisca Miller MD 516 [facility] 295 [place], [place] [address] Resident Neurology 02/10/23 Jennyfer Steele APRN DIRECTOR CENTER [address] [place] [address] F[address] [place] [address] Nurse Practitioner Psychiatry 02/23/23 Jennyfer Steele APRN DIRECTOR CENTER [address] [place] [address] [address] [place] [address] Assigned Behavioral Health Provider 06/30/23 Sadaf Apple NP Assigned PCP 07/21/23 09/18/23 [facility] [address] [place] [address] Assigned PCP 09/19/23 Yamel Saha PA-C [address] [address] Assigned Cancer Care Provider 01/19/24 04/19/24 Luna Simons MD [address] [address] Assigned Cancer Care Provider 04/20/24 documented as of this encounter
--- OUTSIDE RECORDS SUMMARY | 2024-10-15 18:41 | XMS_ITS | Encounter Summary ---
Author Organization [facility] Address [address] [place] [address] Care Team Providers Care Pre Kindergarten Teacher Name Role Phone Cyndie Eisenberg NP Primary Care Provider + Rodney Natarajan MD Unavailable Luna Simons MD Unavailable +[phone] Caroline Duque RN Unavailable Martha White MD Unavailable Pedrito Ramirez MD Unavailable [phone] Rodney Natarajan MD Unavailable +[phone] Luna Simons MD Unavailable Martha White MD Unavailable +[phone] Mio Mclean MD Unavailable Ankita Park MD Unavailable +[phone] [place] MD Unavailable +[phone] Mio Mclean MD Unavailable [phone] Luna Simons MD Unavailable +[phone] Luna Simons MD Unavailable Jose Zaragoza NP Unavailable [phone] Mio Mclean MD Unavailable +[phone] Luna Simons MD Unavailable +[phone] Nadja Hagen MD Unavailable +[phone] Batool [place] PhD LP Unavailable +[phone] Prisca Miller MD Unavailable +[phone] Jennyfer Steele MITER CUTTER BEE RAISER Unavailable + IvetteJennyfer APRN BEE RAISER Unavailable + Sadaf Apple NP Unavailable Unavailable [facility] - [facility] Unavailabl e Yamel Saha PA-C Unavailable +[phone] Luna Simons MD Unavailable +[phone] Encounter Details Date Type Department Care Team (Late st Contact Info) Description 11/14/2019 MyC Medical Advice [facility] [address] [place] [address] Luna Simons MD [address] [place] [address] Social History Tobacco Use Types Packs/Day [...] Procedure [facility] [place] [address] [place] [address] 2nd [place] [address] Luna Simons MD [address] [place] [address] 09/15/2025 10:00 AM CDT Oncology Visit [facility] 909 [place] [phone] Luna Simons MD 420 [facility] 480 [place] [address] documented as of this encounter Visit Diagnoses Not on filedocumented in this encounter Additional Health Concerns Infection Onset Date Last Indicated Resolved Time Rule Out COVID-19 01/24/2023 01/24/2023 01/24/2023 10:32 PM CDT documented as of this encounter Care Teams Pre Kindergarten Teacher Relationship Specialty Start Date End Date Cyndie Eisenberg FORENSIC SPECIALIST [address] [place] [address] PCP - General 09/25/19 Rodney Natarajan MD 420 [facility] 195 [place] [address] General Surgery 09/25/19 Luna Simons MD [address] [place] [address] 480 [place] [address] Hematology 09/25/19 Caroline Duque, RN Specialty Frame Straightener Breast Oncology 09/30/19 Martha White MD [address] [place] [address] [place], [place] 6[address]64 senior formulation scientist 11/01/19 Pedrito Ramirez MD [address] [place] [address] Assigned Heart and Vascular Provider 03/20/20 11/07/20 Rodney Natarajan MD [address] [facility] 195 [place] [address] Assigned Surgical Provider 03/20/20 08/07/21 Luna Simons MD [address] [facility] 480 [place] [address] Assigned Cancer Care Provider 03/20/20 04/11/20 Martha White MD [address] [place] [address] [address] [place], [place] 780114 Assigned Behavioral Health Provider 03/20/20 05/02/20 Mio Mclean MD [address] [facility] 494 [place] [address] Assigned Cancer Care Provider 04/12/20 04/21/20 Ankita Park MD [address] [address] Assigned Behavioral Health Provider 05/03/20 06/29/23 Ankita Park MD [address] [phone] senior formulation scientist 06/10/20 Mio Mclean MD [address] [facility] 494 [place] [address] Assigned Cancer Care Provider 05/10/20 07/25/20 Luna Simons MD [address] [facility] 480 [place] [address] Assigned Cancer Care Provider 04/22/20 05/09/20 Luna Simons MD 420 [facility] 480 [place], [place] 560685 Assigned Cancer Care Provider 07/26/20 06/26/21 oJse Zaragoza, FORENSIC SPECIALIST 6405 [facility] [place] [address] Assigned Heart and Vascular Provider 11/08/20 02/04/22 Mio Mclean MD 420 [facility] 494 [place], [place] 302785 Assigned Cancer Care Provider 06/27/21 09/11/21 Luna Simons MD 420 [facility] 480 [place], [place] 623635 Assigned Cancer Care Provider 09/12/21 01/18/24 Nadja Hagen MD [facility] Floor 2, [address] [place], [place] 7[address]34 Resident Psychiatry 04/01/22 05/13/24 Batool [place], PhD LP [address] [place] [address] [address] [place], [place] 037444 Psychologist Licensed Mental Health 04/01/22 Prisca [place] MD 6 [facility] 295 [place], [place] 775775 Resident Neurology 02/10/23 Jennyfer [place], MITER CUTTER BEE RAISER [address] [place] [address] [place], [place] 9140[address] Nurse Practitioner Psychiatry 02/23/23 Jennyfer [place] APRN BEE RAISER [address] [place] 5075575 [place], [place] 872624 Assigned Behavioral Health Provider 06/30/23 Sadaf Apple NP Assigned PCP 07/21/23 09/18/23 [facility] [address] [place] [address] Assigned PCP 09/19/23 Yamel Saha PA-C [address] [address] Assigned Cancer Care Provider 01/19/24 04/19/24 Luna Simons MD [address] [address] Assigned Cancer Care Provider 04/20/24 documented as of this encounter
--- OUTSIDE RECORDS SUMMARY | 2024-10-15 18:41 | XMS_ITS | Encounter Summary ---
Author Organization [facility] Address [address] [place] [address] Care Team Providers Care Iv Technician Name Role Phone Cyndie Eisenberg NP Primary Care Provider + Rodney Natarajan MD Unavailable [phone] Luna Simons MD Unavailable [phone] Caroline Duque RN Unavailable [phone] Martha White MD Unavailable Pedrito Ramirez MD Unavailable [phone] Rodney Natarajan MD Unavailable [phone] Luna Simons MD Unavailable [phone] Martha White MD Unavailable Mio Mclean MD Unavailable [phone] Ankita Park MD Unavailable [phone] [place]ita Park MD Unavailable [phone] Mio Mclean MD Unavailable [phone] Luna Simons MD Unavailable Luna Simons MD Unavailable Jose Zaragoza NP Unavailable [phone] Mio [place] MD Unavailable [phone] Luna Simons MD Unavailable +[phone] Nadja Hagen MD Unavailable +[phone] Batool [place] PhD LP Unavailable [phone] Prisca [place] MD Unavailable [phone] Ramin Steelen Ravi KEVIN REAL ESTATE EXECUTIVE ASSISTANT Unavailable + IvetteJennyfer vaughan APRN REAL ESTATE EXECUTIVE ASSISTANT Unavailable + Sadaf Apple NP Unavailable Unavailable [facility] Unavailabl e Yamel Saha PA-C Unavailable +[phone] Luna Simons MD Unavailable +[phone] Encounter Details Date Type Department Care Team (Late st Contact Info) Description 01/28/2020 MyC Medical Advice [facility] [address] [address] Rodney Natarajan MD [address] [address] Social History Tobacco Use Types [...] AM CDT Ancillary Procedure [facility] [place] [facility] [address] 2nd [place] [address] Luna Simons MD 420 [facility] 480 [place], [place] 907645 09/15/2025 10:00 AM CDT Oncology Visit [facility] 909 [facility] [place] [address] Luna Simons MD 420 [facility] 480 [place], [place] 837225 documented as of this encounter Visit Diagnoses Not on filedocumented in this encounter Additional Health Concerns Infection Onset Date Last Indicated Resolved Time Rule Out COVID-19 01/24/2023 01/24/2023 01/24/2023 10:32 PM CDT documented as of this encounter Care Teams Iv Technician Relationship Specialty Start Date End Date Cyndie Eisenberg, AMANDA [address] [place] [address] PCP - General 09/25/19 Rodney Natarajan MD 420 [facility] 195 [place], [place] 915535 General Surgery 09/25/19 Luna Simons MD 420 [facility] 480 [place], [place] 935205 Hematology 09/25/19 Caroline Duque, RN Specialty Vp Respiratory Breast Oncology 09/30/19 Martha White MD [address] [place] [address] [address] [place], [place] 919034 derrick builder 11/01/19 Pedrito Ramirez MD 6405 [facility] [address] [place], [place] [address] Assigned Heart and Vascular Provider 03/20/20 11/07/20 Rodney Natarajan MD [address] [facility] 195 [place], [place] 124035 Assigned Surgical Provider 03/20/20 08/07/21 Luna Simons MD 420 [facility] 480 [place] [address] Assigned Cancer Care Provider 03/20/20 04/11/20 Martha White MD [address] [place] [address] [address] [place], [place] 021354 Assigned Behavioral Health Provider 03/20/20 05/02/20 Mio [place]clean MD 420 [facility] 494 [place] [address] Assigned Cancer Care Provider 04/12/20 04/21/20 Ankita Park MD [address] [place] [address] Assigned Behavioral Health Provider 05/03/20 06/29/23 Ankita Park MD [address] [place] [phone] derrick builder 06/10/20 Mio Mclean MD 420 [facility] 494 [place] [address] Assigned Cancer Care Provider 05/10/20 07/25/20 Luna Simons MD 420 [facility] 480 [place] [address] Assigned Cancer Care Provider 04/22/20 05/09/20 Luna Simons MD 420 [facility] 480 [place] [address] Assigned Cancer Care Provider 07/26/20 06/26/21 Jose Zaragoza, STAVE BLOCK SPLITTER 6405 [place] [address] Assigned Heart and Vascular Provider 11/08/20 02/04/22 Mio [place]clean MD 420 [facility] 494 [place] [address] Assigned Cancer Care Provider 06/27/21 09/11/21 Luna Simons MD 420 [facility] 480 [place] [address] Assigned Cancer Care Provider 09/12/21 01/18/24 Nadja Hagen MD [address] 2, [address] [place], [place] 2[address] Resident Psychiatry 04/01/22 05/13/24 Batool [place], PhD LP 2450 [facility] [address] [place], [place] [address]704 Psychologist Licensed Mental Health 04/01/22 Prisca [place] MD 516 [facility] 295 [place] [address] Resident Neurology 02/10/23 Jennyfer [place] APRN REAL ESTATE EXECUTIVE ASSISTANT 2312 S [facility] [address]275 [place] [address] Nurse Practitioner Psychiatry 02/23/23 Jennyfer [place] APRN REAL ESTATE EXECUTIVE ASSISTANT [address] [facility] [address] [place] [address] Assigned Behavioral Health Provider 06/30/23 Sadaf Apple NP Assigned PCP 07/21/23 09/18/23 [facility] [address] [place] [address] Assigned PCP 09/19/23 Yamel Saha PA-C 420 [facility] 480 [place], [place] 761045 Assigned Cancer Care Provider 01/19/24 04/19/24 Luna Simons MD 420 [facility] 480 [place], [place] 625175 Assigned Cancer Care Provider 04/20/24 documented as of this encounter
--- OUTSIDE RECORDS SUMMARY | 2024-10-15 18:41 | XMS_ITS | Encounter Summary ---
Author Organization [facility] Address [address] [place] [address] Care Team Providers Care Forge Shop Machine Repairer Name Role Phone Cyndie Eisenberg NP Primary Care Provider + Rodney Natarajan MD Unavailable [phone] Luna Simons MD Unavailable Caroline Duque RN Unavailable [phone] Martha White MD Unavailable Pedrito Ramirez MD Unavailable [phone] Rodney Natarajan MD Unavailable [phone] Luna Simons MD Unavailable Martha White MD Unavailable Mio Mclean MD Unavailable [phone] Ankita Park MD Unavailable [phone] Ankita Park MD Unavailable [phone] Mio [place]clean MD Unavailable [phone] Luna Simons MD Unavailable Luna Simons MD Unavailable Jose Zaragoza NP Unavailable Mio [place]clean MD Unavailable [phone] Luna Simons MD Unavailable [phone] Nadja Hagen MD Unavailable [phone] Batool [place] PhD LP Unavailable [phone] Prisca [place] MD Unavailable [phone] Jennyfer Steele PEDIATRICS TEACHER COMMERCIAL ARTIST Unavailable + IvetteJennyfer vaughan APRN COMMERCIAL ARTIST Unavailable + Sadaf Apple NP Unavailable Unavailable [facility] Unavailabl e Yamel Saha PA-C Unavailable +[phone] Luna Simons MD Unavailable +[phone] Encounter Details Date Type Department Care Team (Late st Contact Info) Description 11/17/2019 MyC Medical Advice [facility] [address] [place] [facility] [place] [phone] John Moreno, Ps[address] [address] Social History Tobacco Use Types Packs/Day Years [...] Procedure [facility] Imaging [place] 909 [facility] 2nd [place] [address] Luna Simons MD [address] [place] [address] [phone] 09/15/2025 10:00 AM CDT Oncology Visit [facility] 909 [facility] [place] [phone] Luna Simons MD 420 [facility] 480 [place] [address] documented as of this encounter Visit Diagnoses Not on filedocumented in this encounter Additional Health Concerns Infection Onset Date Last Indicated Resolved Time Rule Out COVID-19 01/24/2023 01/24/2023 01/24/2023 10:32 PM CDT documented as of this encounter Care Teams Forge Shop Machine Repairer Relationship Specialty Start Date End Date Cyndie Eisenberg [employer] [address] [place] [address] PCP - General 09/25/19 Rodney Natarajan MD 420 [facility] 195 [place], [place] 536585 General Surgery 09/25/19 Luna Simons MD 420 [facility] 480 [place] [address] Hematology 09/25/19 Caroline Duque, RN Specialty Unified Communications Engineer Breast Oncology 09/30/19 Martha White MD [address] [place] [address] [place], [place] 630[address] branch assistant 11/01/19 Pedrito Ramirez MD [address] [place] [place], [place] 7466[address] Assigned Heart and Vascular Provider 03/20/20 11/07/20 Rodney Natarajan MD [address] [place] [address] [facility] 195 [place] [address] Assigned Surgical Provider 03/20/20 08/07/21 Luna Simons MD [address] [place] [address] [facility] 480 [place] [address] Assigned Cancer Care Provider 03/20/20 04/11/20 Martha White MD [address] [place] [address] [address] [place], [place] 634724 Assigned Behavioral Health Provider 03/20/20 05/02/20 Mio [place] MD [address] [place] [address] [facility] 494 [place] [address] Assigned Cancer Care Provider 04/12/20 04/21/20 Ankita Park MD [address] [place] [address] Assigned Behavioral Health Provider 05/03/20 06/29/23 Ankita Park MD [address] [place] [phone] branch assistant 06/10/20 Mio [place] MD [address] [place] [address] [facility] 494 [place] [address] Assigned Cancer Care Provider 05/10/20 07/25/20 Luna Simons MD [address] [place] [address] [facility] 480 [place] [address] Assigned Cancer Care Provider 04/22/20 05/09/20 Luna Simons MD 420 [facility] 480 [place], [place] 125655 Assigned Cancer Care Provider 07/26/20 06/26/21 Jose Zaragoza, COOK FAST FOOD 6405 [facility] [place] [place] [address]85 Assigned Heart and Vascular Provider 11/08/20 02/04/22 Mio [place] MD 420 [facility] 494 [place], [place] 652675 Assigned Cancer Care Provider 06/27/21 09/11/21 Luna Simons MD 420 [facility] 480 [place] [address] Assigned Cancer Care Provider 09/12/21 01/18/24 Nadja [place] MD [facility] S [facility] Floor 2, [address] [place], [place] [address] Resident Psychiatry 04/01/22 05/13/24 Batool [place], PhD LP [facility]0 [facility] [address] [place], [place] 9[address] Psychologist Licensed Mental Health 04/01/22 Prisca [place] MD 6 [facility] 295 [place], [place] [address] Resident Neurology 02/10/23 Jennyfer [place], PEDIATRICS TEACHER COMMERCIAL ARTIST [address] [place] [address] [place] [address] Nurse Practitioner Psychiatry 02/23/23 Jennyfer Steele APRN [facility] [address] [place] [address] [address] [place], [place] 568364 Assigned Behavioral Health Provider 06/30/23 Sadaf Apple NP Assigned PCP 07/21/23 09/18/23 [facility] [address] [place] [address] Assigned PCP 09/19/23 [place]amel Saha PA-C 420 [facility] 480 [place], [place] 087575 Assigned Cancer Care Provider 01/19/24 04/19/24 Luna Simons MD 420 [facility] 480 [place], [place] 863115 Assigned Cancer Care Provider 04/20/24 documented as of this encounter
--- OUTSIDE RECORDS SUMMARY | 2024-10-15 18:41 | XMS_ITS | Encounter Summary ---
Author Organization [facility] Address [address] [place] [address] Care Team Providers Care Supervisor Customer Complaint Service Name Role Phone Cyndie Eisenberg NP Primary Care Provider + Rodney Natarajan MD Unavailable [phone] Luna Simons MD Unavailable [phone] Caroline Duque RN Unavailable [phone] Martha White MD Unavailable [phone] Pedrito Ramirez MD Unavailable +[phone] Rodney Natarajan MD Unavailable +[phone] Luna Simons MD Unavailable Martha White MD Unavailable Mio [place] MD Unavailable +[phone] Ankita Park MD Unavailable [phone] [place] MD Unavailable +[phone] Mio [place] MD Unavailable [phone] Luna Simnos MD Unavailable +[phone] Luna Simons MD Unavailable Jose Zaragoza NP Unavailable [phone] Mio [place] MD Unavailable Luna Simons MD Unavailable +[phone] Nadja Hagen MD Unavailable +[phone] Batool [place] PhD LP Unavailable [phone] Prisca [place] MD Unavailable [phone] Ramin Steelejulieth Rodrigues APRN LOGISTICS SOLUTION MANAGER Unavailable + Jennyfer Steele APRN LOGISTICS SOLUTION MANAGER Unavailable + Sadaf Apple NP Unavailable Unavailable [facility] Unavailabl e Yamel Saha PA-C Unavailable +[phone] Luna Simons MD Unavailable +[phone] Encounter Details Date Type Department Care Team (Late st Contact Info) Description 01/16/2020 MyC Medical Advice [facility] Surgery and Procedure [address] 5th [place] [address] Prisca Riggins, RN Social History [...] [facility] [place] [address] [place] [address] 2nd [place] [address] Luna Simons MD [address] [place] [address] 480 [place], [place] 5[address]495 09/15/2025 10:00 AM CDT Oncology Visit [facility] 909 [place] [address] Luna Simons MD 420 [facility] 480 [place], [place] 532345 documented as of this encounter Visit Diagnoses Not on filedocumented in this encounter Additional Health Concerns Infection Onset Date Last Indicated Resolved Time Rule Out COVID-19 01/24/2023 01/24/2023 01/24/2023 10:32 PM CDT documented as of this encounter Care Teams Supervisor Customer Complaint Service Relationship Specialty Start Date End Date Cyndie Eisenberg CRIME SCENE ANALYST [address] [place] [address] PCP - General 09/25/19 Rodney Natarajan MD [address] [place] [address] 195 [place], [place] 219795 General Surgery 09/25/19 Luna Simons MD [address] [place] [address] 480 [place], [place] 87[address] Hematology 09/25/19 Caroline Duque, RN Specialty Pattern Marking Supervisor Breast Oncology 09/30/19 Martha White MD [address] [place] [address] [place] [address] face and fill packer 11/01/19 Pedrito Ramirez MD [address] [place] [place] [address] Assigned Heart and Vascular Provider 03/20/20 11/07/20 Rodney Natarajan MD [address] [place] [address] [facility] 195 [place] [address] Assigned Surgical Provider 03/20/20 08/07/21 Luna Simons MD [address] [place] [address] [facility] 480 [place] [address] Assigned Cancer Care Provider 03/20/20 04/11/20 Martha White MD [address] [place] [address] [address] [place], [place] 590374 Assigned Behavioral Health Provider 03/20/20 05/02/20 Mio [place] MD [address] [place] [address] [facility] 494 [place] [address] Assigned Cancer Care Provider 04/12/20 04/21/20 Ankita Park MD [facility] [address] [address] Assigned Behavioral Health Provider 05/03/20 06/29/23 Ankita Park MD [facility] [address] [phone] face and fill packer 06/10/20 Mio [place] MD [address] [address] [facility] 494 [place] [address] Assigned Cancer Care Provider 05/10/20 07/25/20 Luna Simons MD [address] [place] [address] [facility] 480 [place] [address] Assigned Cancer Care Provider 04/22/20 05/09/20 Luna Simons MD 420 [facility] 480 [place] [address] Assigned Cancer Care Provider 07/26/20 06/26/21 Jose Zaragoza, CRIME SCENE ANALYST 6405 [facility] [place] [address] Assigned Heart and Vascular Provider 11/08/20 02/04/22 Mio [place] MD 420 [facility] 494 [place], [place] 80[address]85 Assigned Cancer Care Provider 06/27/21 09/11/21 Luna Simons MD 420 [facility] 480 [place], [place] 7[address]245 Assigned Cancer Care Provider 09/12/21 01/18/24 Nadja Hagen MD [address] [facility] Floor 2, [address] [place], [place] [address] Resident Psychiatry 04/01/22 05/13/24 Batool [place], PhD LP [address] [place] [address] [address] [place], [place] [address] Psychologist Licensed Mental Health 04/01/22 Prisca [place] MD 516 [facility] 295 [place], [place] 6[address]015 Resident Neurology 02/10/23 Jennyfer Steele APRN LOGISTICS SOLUTION MANAGER [address] [place] [address] [place], [place] [address] Nurse Practitioner Psychiatry 02/23/23 Jennyfer Steele APRN LOGISTICS SOLUTION MANAGER 2312 S [facility] [address] [place] [address] Assigned Behavioral Health Provider 06/30/23 Sadaf Apple NP Assigned PCP 07/21/23 09/18/23 [facility] [address] [place] [address] Assigned PCP 09/19/23 Yamel Saha PA-C [address] [place] [address] Assigned Cancer Care Provider 01/19/24 04/19/24 Luna Simons MD [address] [place] [address]89225 Assigned Cancer Care Provider 04/20/24 documented as of this encounter
--- OUTSIDE RECORDS SUMMARY | 2024-10-15 18:42 | XMS_ITS | Encounter Summary ---
Author Organization [facility] Address [address] [place] [address] Care Team Providers Care Supervisor Dimension Warehouse Name Role Phone Cyndie Eisenberg NP Primary Care Provider + Rodney Natarajan MD Unavailable [phone] Luna Simons MD Unavailable [phone] Caroline Duque RN Unavailable [phone] Martha White MD Unavailable [phone] Pedrito Ramirez MD Unavailable [phone] Rodney Natarajan MD Unavailable [phone] Luna Simons MD Unavailable Martha White MD Unavailable Mio Mclean MD Unavailable +[phone] Ankita Park MD Unavailable [phone] Ankita Park MD Unavailable [phone] Mio Mclean MD Unavailable [phone] Luna Simons MD Unavailable +[phone] Luna Simons MD Unavailable Jose Zaragoza NP Unavailable Mio Mclean MD Unavailable +[phone] Luna Simons MD Unavailable +[phone] Nadja Hagen MD Unavailable +[phone] Batool Atkinson PhD LP Unavailable +[phone] Prisca Miller MD Unavailable +[phone] Jennyfer Steele APRN ROVING TECHNICIAN Unavailable + Jennyfer Steele APRN ROVING TECHNICIAN Unavailable + Sadaf Apple NP Unavailable Unavailable Clinic - [facility] Unavailabl e Yamel Saha PA-C Unavailable [phone] Luna Simons MD Unavailable [phone] Reason for Visit * Reason Onset Date Comments Clinic Care Coordination - Follow-up 04/08/2020 Med orders Encounter Details Date Type Department Care Team (Late st Contact Info) Description 04/08/2020 MyC Medical Advice [facility] [place] [id number] [address] Ankita Park MD [address] [place] [phone] Clinic Care Coordination - Follow-up (Med [...] COVID-19? No / Unsure 04/03/2020 8:05 AM ASSET MANAGER documented as of this encounter Miscellaneous Notes * Telephone Encounter - Alan Nino, RN - 04/08/2020 12:27 PM CST Mechanic Welder received confirmation from Dr. Park to order increase cymbalta to 90 with a 60mg and 30mg, send in one month and 2 RF please? Mechanic Welder e-prescribed updated orders to requested pharmacy. Routed message to pt via [employer]. T MANAGER documented in this encounter Plan of Treatment Upcoming Encounters Date Type Department Care Team (Late st Contact Info) Description 09/15/2025 9:15 AM CDT Ancillary Procedure [facility] [place] 909 [facility] 2nd [place] [address] Luna Simons MD [address] [place] [address] 480 [place], [place] 004355 09/15/2025 10:00 AM CDT Oncology Visit [facility] 909 [place] [phone] Luna Simons MD [address] [place] [address] documented as of this encounter Visit Diagnoses Diagnosis Anxiety- Primary Anxiety state, unspecified documented in this encounter Additional Health Concerns Infection Onset Date Last Indicated Resolved Time Rule Out COVID-19 01/24/2023 01/24/2023 01/24/2023 10:32 PM CDT documented as of this encounter Care Teams Supervisor Dimension Warehouse Relationship Specialty Start Date End Date Cyndie Eisenberg, SHIPPING COORDINATOR [address] [place] [address] PCP - General 09/25/19 Rodney Natarajan MD [address] [place] [address] 195 [place], [place] 708175 General Surgery 09/25/19 Luna Simons MD [address] [place] [address] [facility] 480 [place] [address] Hematology 09/25/19 Caroline Duque, RN Specialty Bath Steward/Stewardess Breast Oncology 09/30/19 Martha White MD [address] [facility] [address] [place], [place] [address] car wash attendant automatic 11/01/19 Pedrito Ramirez MD 6405 [facility] [address] [place], [place] 9057[address] Assigned Heart and Vascular Provider 03/20/20 11/07/20 Rodney Natarajan MD 420 [facility] 195 [place], [place] 306915 Assigned Surgical Provider 03/20/20 08/07/21 Luna Simons MD 420 [facility] 480 [place], [place] 808375 Assigned Cancer Care Provider 03/20/20 04/11/20 Martha White MD [address] [place] [address] [address] [place] [address] Assigned Behavioral Health Provider 03/20/20 05/02/20 Mio Mclean MD 420 [facility] 494 [place], [place] 973875 Assigned Cancer Care Provider 04/12/20 04/21/20 Ankita Park MD [facility] [place] [address] [phone] Assigned Behavioral Health Provider 05/03/20 06/29/23 Ankita Park MD 2450 [facility] [address] [place] [phone] car wash attendant automatic 06/10/20 Mio Mclean MD 420 [facility] 494 [place] [address] Assigned Cancer Care Provider 05/10/20 07/25/20 Luna Simons MD 420 [facility] 480 [place] [address] Assigned Cancer Care Provider 04/22/20 05/09/20 Luna Simons MD [address] [place] [address] 480 [place] [address] Assigned Cancer Care Provider 07/26/20 06/26/21 Jose Zaragoza, SHIPPING COORDINATOR 6405 [facility] [place] [address] Assigned Heart and Vascular Provider 11/08/20 02/04/22 Mio Mclean MD [address] [address] Assigned Cancer Care Provider 06/27/21 09/11/21 Luna Simons MD 420 [facility] 480 [place] [address] Assigned Cancer Care Provider 09/12/21 01/18/24 Nadja Hagen MD [facility] [address] 2, [address] [place], [place] [address] Resident Psychiatry 04/01/22 05/13/24 Batool Atkinson, PhD LP 2450 [facility] [address] [place], [place] 2213[address] Psychologist Licensed Mental Health 04/01/22 Prisca Miller MD 516 [facility] 295 [place], [place] 513635 Resident Neurology 02/10/23 Jennyfer Steele APRN ROVING TECHNICIAN [facility] S [facility] [place] [address] [place], [place] [address] Nurse Practitioner Psychiatry 02/23/23 Jennyfer Steele APRN ROVING TECHNICIAN [facility] [address], [place] [address] [place], [place] 505074 Assigned Behavioral Health Provider 06/30/23 Sadaf Apple NP Assigned PCP 07/21/23 09/18/23 [facility] [id number] [place] [address] Assigned PCP 09/19/23 Yamel Saha PA-C 420 [facility] 480 [place], [place] 090425 Assigned Cancer Care Provider 01/19/24 04/19/24 Luna Simons MD 420 [facility] 480 [place], [place] 476265 Assigned Cancer Care Provider 04/20/24 documented as of this encounter
--- OUTSIDE RECORDS SUMMARY | 2024-10-15 18:42 | XMS_ITS | Encounter Summary ---
Author Organization [facility] Address [address] [place] [address] Care Team Providers Care Loan Processor Name Role Phone Cyndie Eisenberg NP Primary Care Provider + Rodney Natarajan MD Unavailable [phone] Luna Simons MD Unavailable [phone] Caroline Duque RN Unavailable [phone] Martha White MD Unavailable [phone] Pedrito Ramirez MD Unavailable [phone] Rodney Natarajan MD Unavailable [phone] Luna Simons MD Unavailable Martha White MD Unavailable Mio Mclean MD Unavailable [phone] Ankita aPrk MD Unavailable [phone] Ankita Park MD Unavailable [phone] Mio Mclean MD Unavailable [phone] Luna Simons MD Unavailable Luna Simons MD Unavailable [phone] Jose Zaragoza NP Unavailable Mio Mclean MD Unavailable [phone] Luna Simons MD Unavailable [phone] Nadja Hagen MD Unavailable [phone] Batool Atkinson PhD LP Unavailable [phone] Prisca Miller MD Unavailable [phone] Ramin Steelen Ravi KEVIN RESPIRATORY MANAGER Unavailable + Jennyfer Steele APRN RESPIRATORY MANAGER Unavailable + Sadaf Apple NP Unavailable Unavailable Clinic - [facility] Unavailabl e Yamel Saha PA-C Unavailable [phone] Luna Simons MD Unavailable [phone] Encounter Details Date Type Department Care Team (Late st Contact Info) Description 12/31/2019 [facility] 909 [place] [address] Luna Simons MD [address] [address] Social History Tobacco Use Types [...] fevers or chills. Her sister is a instructor bridge and thought it looked more like an [...] [facility] Imaging [address] 2nd [place] [phone] Luna Simons MD [address] [place] [address] 09/15/2025 10:00 AM CDT Oncology Visit [facility] [address] [place] [phone] Luna Simons MD [address] [place] [address] documented as of this encounter Visit Diagnoses Not on filedocumented in this encounter Additional Health Concerns Infection Onset Date Last Indicated Resolved Time Rule Out COVID-19 01/24/2023 01/24/2023 01/24/2023 10:32 PM CDT documented as of this encounter Care Teams Loan Processor Relationship Specialty Start Date End Date Cyndie Eisenberg NP [address] [place] [address] PCP - General 09/25/19 Rodney Natarajan MD [address] [place] [address] [facility] 195 [place], [place] [address] General Surgery 09/25/19 Luna Simons MD [address] [place] [address] [facility] 480 [place], [place] [address] Hematology 09/25/19 Caroline Duque, RN Specialty Sales Correspondence Clerk Breast Oncology 09/30/19 Martha White MD [address] [facility] [address] [place], [place] [address] handle attacher 11/01/19 Pedrito Ramirez MD 6405 [facility] [address] [place], [place] [address] Assigned Heart and Vascular Provider 03/20/20 11/07/20 Rodney Natarajan MD [address] [place] [address] [facility] 195 [place], [place] 6[address]45 Assigned Surgical Provider 03/20/20 08/07/21 Luna Simons MD [address] [place] [address] [facility] 480 [place], [place] 8[address] Assigned Cancer Care Provider 03/20/20 04/11/20 Martha White MD [address] [place] [address] [address] [place], [place] [address] Assigned Behavioral Health Provider 03/20/20 05/02/20 Mio Mclean MD [address] [place] [address] [facility] 494 [place], [place] 8[address]235 Assigned Cancer Care Provider 04/12/20 04/21/20 Ankita Park MD [address] [place] [phone] Assigned Behavioral Health Provider 05/03/20 06/29/23 Ankita Park MD [address] [place] [phone] handle attacher 06/10/20 Mio Mclean MD [address] [address] Assigned Cancer Care Provider 05/10/20 07/25/20 Luna Simons MD [address] [address] Assigned Cancer Care Provider 04/22/20 05/09/20 Luna Simons MD [address] [address] Assigned Cancer Care Provider 07/26/20 06/26/21 Jose Zaragoza, EDUCATION AND TRAINING MANAGER 6405 [place] [address] Assigned Heart and Vascular Provider 11/08/20 02/04/22 Mio Mclean MD [address] [address] Assigned Cancer Care Provider 06/27/21 09/11/21 Luna Simons MD [address] [address] Assigned Cancer Care Provider 09/12/21 01/18/24 Nadja Hagen MD [address] [place] [address] Floor 2, [address] [place] [address] Resident Psychiatry 04/01/22 05/13/24 Batool Atkinson, PhD LP [address] [place] [address] [address] [place], [place] [address] Psychologist Licensed Mental Health 04/01/22 Prisca Miller MD 6 [facility] 295 [place], [place] [address]115 Resident Neurology 02/10/23 Jennyfer Steele APRN RESPIRATORY MANAGER [address] [place] [address], [place] [address] [place] [address] Nurse Practitioner Psychiatry 02/23/23 Jennyfer Steele APRN RESPIRATORY MANAGER [address] [place] [address], [place] [address] [place] [address] Assigned Behavioral Health Provider 06/30/23 Sadaf Apple NP Assigned PCP 07/21/23 09/18/23 [facility] [address] [place] [address] Assigned PCP 09/19/23 Yamel Saha PA-C 420 [facility] 480 [place] [address] Assigned Cancer Care Provider 01/19/24 04/19/24 Luna Simons MD [address] [address] Assigned Cancer Care Provider 04/20/24 documented as of this encounter
--- OUTSIDE RECORDS SUMMARY | 2024-10-15 18:42 | XMS_ITS | Encounter Summary ---
Author Organization [facility] Address [address] [place] [address] Care Team Providers Care Deputy Clerk Name Role Phone Cyndie Eisenberg NP Primary Care Provider + Rodney Natarajan MD Unavailable [phone] Luna Simons MD Unavailable Caroline Duque RN Unavailable [phone] Martha White MD Unavailable Pedrito Ramirez MD Unavailable [phone] Rodney Natarajan MD Unavailable [phone] Luna Simons MD Unavailable Martha White MD Unavailable Mio Mclean MD Unavailable [phone] Ankita Park MD Unavailable [phone] Ankita Park MD Unavailable [phone] Mio Mclean MD Unavailable [phone] Luna Simons MD Unavailable Luna Simons MD Unavailable +[phone] Jose Zaragoza NP Unavailable [phone] Mio Mclean MD Unavailable [phone] Luna Simons MD Unavailable [phone] Nadja Hagen MD Unavailable [phone] Batool Atkinson PhD LP Unavailable [phone] Prisca Miller MD Unavailable [phone] Ramin Steelen Ravi KEVIN ELECTROCARDIOGRAPH REPAIRER Unavailable + Jennyfer Steele APRN ELECTROCARDIOGRAPH REPAIRER Unavailable + Sadaf Apple NP Unavailable Unavailable [facility] Unavailabl e Yamel Saha PA-C Unavailable +[phone] Luna Simons MD Unavailable [phone] Encounter Details Date Type Department Care Team (Late st Contact Info) Description 01/09/2020 MyC Medical Advice [facility] and Procedure [place] [address] [facility] 5th [place] [address] Rodney Natarajan MD 420 [facility] 195 [place] [address] Social History Tobacco Use Types [...] Procedure [facility] Imaging [place] 909 [facility] 2nd [place] [address] Luna Simons MD 420 [facility] 480 [place], [place] [address] 09/15/2025 10:00 AM CDT Oncology Visit [facility] [address] [facility] [phone] Luna Simons MD 420 [facility] 480 [place], [place] 347165 documented as of this encounter Visit Diagnoses Not on filedocumented in this encounter Additional Health Concerns Infection Onset Date Last Indicated Resolved Time Rule Out COVID-19 01/24/2023 01/24/2023 01/24/2023 10:32 PM CDT documented as of this encounter Care Teams Deputy Clerk Relationship Specialty Start Date End Date Cyndie Eisenberg NP [address] [place] [address] PCP - General 09/25/19 Rodney Natarajan MD 420 [facility] 195 [place], [place] 28[address] General Surgery 09/25/19 Luna Simons MD 420 [facility] 480 [place], [place] 4[address] Hematology 09/25/19 Caroline Duque, ASHLIE Specialty Production Boring Machine Operator Breast Oncology 09/30/19 Martha White MD [address] [place] [address] [address] [place], [place] 285824 career resource technician 11/01/19 Pedrito Ramirez MD 6405 [facility] [address] [place], [place] 28[address] Assigned Heart and Vascular Provider 03/20/20 11/07/20 Rodney Natarajan MD [address] [place] [address] [facility] 195 [place], [place] 97[address] Assigned Surgical Provider 03/20/20 08/07/21 Luna Simons MD 420 [facility] 480 [place] [address] Assigned Cancer Care Provider 03/20/20 04/11/20 Martha White MD [address] [place] [address] [address] [place], [place] 6[address]24 Assigned Behavioral Health Provider 03/20/20 05/02/20 Mio Mclean MD 420 [facility] 494 [place] [address] Assigned Cancer Care Provider 04/12/20 04/21/20 Ankita Park MD [address] [place] [address] Assigned Behavioral Health Provider 05/03/20 06/29/23 Ankita Park MD [address] [place] [phone] career resource technician 06/10/20 Mio Mclean MD [address] [place] [address] [facility] 494 [place] [address] Assigned Cancer Care Provider 05/10/20 07/25/20 Luna Simons MD 420 [facility] 480 [place] [address] Assigned Cancer Care Provider 04/22/20 05/09/20 Luna Simons MD 420 [facility] 480 [place] [address] Assigned Cancer Care Provider 07/26/20 06/26/21 Jose Zaragoza, HOB GRINDER 6405 [place] [address] Assigned Heart and Vascular Provider 11/08/20 02/04/22 Mio Mclean MD 420 [facility] 494 [place] [address] Assigned Cancer Care Provider 06/27/21 09/11/21 Luna Simons MD 420 [facility] 480 [place] [address] Assigned Cancer Care Provider 09/12/21 01/18/24 Nadja Hagen MD [address] 2, [address] [place], [place] 27[address] Resident Psychiatry 04/01/22 05/13/24 Batool Atkinson, PhD LP 2450 [facility] [address] [place], [place] 40[address] Psychologist Licensed Mental Health 04/01/22 Prisca Miller MD 516 [facility] 295 [place] [address] Resident Neurology 02/10/23 Jennyfer Steele APRN ELECTROCARDIOGRAPH REPAIRER 2312 S [facility] [address]275 [place] [address] Nurse Practitioner Psychiatry 02/23/23 Jennyfer Steele APRN ELECTROCARDIOGRAPH REPAIRER 2312 S [facility] [address] [place] [address] Assigned Behavioral Health Provider 06/30/23 Sadaf Apple NP Assigned PCP 07/21/23 09/18/23 [facility] [address] [place] [address] Assigned PCP 09/19/23 Yamel Saha PA-C 420 [facility] 480 [place], [place] 6[address]75 Assigned Cancer Care Provider 01/19/24 04/19/24 Luna Simons MD 420 [facility] 480 [place], [place] [address] Assigned Cancer Care Provider 04/20/24 documented as of this encounter
--- OUTSIDE RECORDS SUMMARY | 2024-10-15 18:42 | XMS_ITS | Encounter Summary ---
Author Organization [facility] Address [address] [place] [address] Care Team Providers Care Hedge Fund Trader Name Role Phone Lucita French MD Primary Care Provider Encounter Details Date Type Department Care Team (Late st Contact Info) Description 08/24/2020 Lab Requisition [facility] [address] [place] [phone] Geovanni Guzman MD [address] [place] [address] Cough; Myalgia, unspecified site Social History Tobacco [...] (A) Not Detected 08/25/2020 9:19 PM CDT [facility] Swab (Source Required) .No Charge / Unknown 08/24/2020 3:05 PM CDT 08/24/2020 7:30 PM CDT Narrative [facility] - 08/25/2020 9:19 PM CDT Test performed by Machine Sweeper Brush Maker Mediated Amplification. TMA has been shown to be equivalent to commercial real-time PCR tests. This test has been authorized by the FDA under an Emergency Use Authorization (EUA) for use by authorized laboratories. us Geovanni Guzman MD LAB_1 Final Result [facility] [address] [place] [address], [facility] [phone] documented in this encounter Visit Diagnoses Diagnosis [...] documented as of this encounter Care Teams Hedge Fund Trader Relationship Specialty Start Date End Date Lucita French MD [address] [place] [address] PCP - General Family Practice 07/15/21 documented as of this encounter
--- OUTSIDE RECORDS SUMMARY | 2024-10-15 18:42 | XMS_ITS | Encounter Summary ---
Author Organization [place] Address [address] [place] [address] Care Team Providers Care Fourth Grade Teacher Name Role Phone Cyndie Eisenberg NP Primary Care Provider + Rodney Natarajan MD Unavailable [phone] Luna Simons MD Unavailable [phone] Caroline Duque RN Unavailable [phone] Martha White MD Unavailable Pedrito Ramirez MD Unavailable [phone] Rodney Natarajan MD Unavailable [phone] Martha White MD Unavailable Ankita Park MD Unavailable [phone] Ankita Park MD Unavailable [phone] Mio Mclean MD Unavailable [phone] Luna Simons MD Unavailable Luna Simons MD Unavailable Jose Zaragoza NP Unavailable [phone] Mio Mclean MD Unavailable [phone] Luna Simons MD Unavailable [phone] Nadja Hagen MD Unavailable [phone] Batool Atkinson PhD LP Unavailable Prisca Miller MD Unavailable [phone] Jennyfer Steele KEVIN WELT MAKER Unavailable + Jennyfer Steele KEVIN WELT MAKER Unavailable + Sadaf Apple NP Unavailable Unavailable Clinic - [facility] Unavailabl e Yamel Saha PA-C Unavailable +[phone] Luna Simons MD Unavailable [phone] Encounter Details Date Type Department Care Team (Late st Contact Info) Description 04/22/2020 MyC Medical Advice [facility] [address] [address] Lillie Arevalo RN Social History [...] COVID-19? No / Unsure 04/22/2020 8:28 AM THAI MASSEUR documented as of this encounter Plan of Treatment Upcoming Encounters Date Type Department Care Team (Late st Contact Info) Description 09/15/2025 9:15 AM CDT Ancillary Procedure [facility] Breast Center Imaging [address] 2nd [place] [address] Luna Simons MD [address] [place] [address] 09/15/2025 10:00 AM CDT Oncology Visit [facility] 909 [facility] [place] [phone] Luna Simons MD [address] 1494[address] documented as of this encounter Visit Diagnoses Not on filedocumented in this encounter Additional Health Concerns Infection Onset Date Last Indicated Resolved Time Rule Out COVID-19 01/24/2023 01/24/2023 01/24/2023 10:32 PM CDT documented as of this encounter Care Teams Fourth Grade Teacher Relationship Specialty Start Date End Date Cyndie Eisenberg NP [address] [place] [address] PCP - General 09/25/19 Rodney Natarajan MD [address] 709645 General Surgery 09/25/19 Luna Simons MD [address] 219115 Hematology 09/25/19 Caroline Duque, RN Specialty Tractor Mechanic Helper Breast Oncology 09/30/19 Martha Wihte MD [address] [place] [address] [address] [place] [address] component inspector 11/01/19 Pedrito Ramirez MD 6405 [facility] [address] [place], [place] 568625 Assigned Heart and Vascular Provider 03/20/20 11/07/20 Rodney Natarajan MD [address] [phone] Assigned Surgical Provider 03/20/20 08/07/21 Martha White MD [facility] [address] [place], [place] 886974 Assigned Behavioral Health Provider 03/20/20 05/02/20 Ankita Park MD [address] [place] [address] Assigned Behavioral Health Provider 05/03/20 06/29/23 Ankita Park MD [address] [place] [address] component inspector 06/10/20 Mio Mclean MD [address] 785605 Assigned Cancer Care Provider 05/10/20 07/25/20 Luna Simons MD [address] 284625 Assigned Cancer Care Provider 04/22/20 05/09/20 Luna Simons MD [address] [address] Assigned Cancer Care Provider 07/26/20 06/26/21 Jose Zaragoza, HEALTH INFORMATION MANAGER 6405 [place] [address] Assigned Heart and Vascular Provider 11/08/20 02/04/22 Mio Mclean MD [address] [place] [address] Assigned Cancer Care Provider 06/27/21 09/11/21 Luna Simons MD 420 [facility] 480 [place] [address] Assigned Cancer Care Provider 09/12/21 01/18/24 Nadja Hagen MD [address] [place] [address] Floor 2, [address] [place], [place] 403424 Resident Psychiatry 04/01/22 05/13/24 Batool Atkinson, PhD LP [address] [place] [address] [address] [place] [address] Psychologist Licensed Mental Health 04/01/22 Prisca Miller MD 516 [facility] 295 [place], [place] 615975 Resident Neurology 02/10/23 Jennyfer Steele APRN WELT MAKER [address] [place] [address], [facility] [address] [place] [address] Nurse Practitioner Psychiatry 02/23/23 Jennyfer Steele APRN WELT MAKER [address] [place] [address] [address] [place] [address] Assigned Behavioral Health Provider 06/30/23 Sadaf Apple NP Assigned PCP 07/21/23 09/18/23 [facility] [address] [place] [address] [id number] Assigned PCP 09/19/23 Yamel Saha PA-C [address] 409425 Assigned Cancer Care Provider 01/19/24 04/19/24 Luna Simons MD [address] [place] [address] [id number] Assigned Cancer Care Provider 04/20/24 documented as of this encounter
--- OUTSIDE RECORDS SUMMARY | 2024-10-15 18:42 | XMS_ITS | Encounter Summary ---
Author Organization [place] Address [address] [place] [address] Care Team Providers Care Merchandise Support Associate Name Role Phone Cyndie Eisenberg NP Primary Care Provider + Rodney Natarajan MD Unavailable [phone] Luna Simons MD Unavailable Caroline Duque RN Unavailable [phone] Martha White MD Unavailable Pedrito Ramirez MD Unavailable [phone] Rodney Natarajan MD Unavailable [phone] Martha White MD Unavailable Ankita Park MD Unavailable [phone] Ankita Park MD Unavailable [phone] Mio Mclean MD Unavailable Luna Simons MD Unavailable [phone] Luna Simons MD Unavailable Jose Zaragoza NP Unavailable Mio Mclean MD Unavailable [phone] Luna Simons MD Unavailable Nadja Hagen MD Unavailable [phone] Batool Atkinson PhD LP Unavailable [phone] Prisca Miller MD Unavailable [phone] Jennyfer Steele KEVIN PASTE MIXING SUPERVISOR Unavailable + Jennyfer Steele KEVIN PASTE MIXING SUPERVISOR Unavailable + Sadaf Apple NP Unavailable Unavailable Clinic - [facility] Unavailabl e Yamel Saha PA-C Unavailable [phone] Luna Simons MD Unavailable [phone] Encounter Details Date Type Department Care Team (Late st Contact Info) Description 05/01/2020 MyC Medical Advice [facility] [address] [place] [address] Ivelisse Vásquez, ASHLIE Social History Tobacco [...] COVID-19? No / Unsure 05/03/2020 11:32 AM CATERING ATTENDANT documented as of this encounter Plan of Treatment Upcoming Encounters Date Type Department Care Team (Late st Contact Info) Description 09/15/2025 9:15 AM CDT Ancillary Procedure [facility] Breast Center Imaging [place] 909 [facility] 2nd [place] [address] Luna Simons MD 420 [facility] 480 [place] [address] 09/15/2025 10:00 AM CDT Oncology Visit [facility] 909 [place] [phone] Luna Simons MD [address] [place] [address] 480 [place], [place] 264235 documented as of this encounter Visit Diagnoses Not on filedocumented in this encounter Additional Health Concerns Infection Onset Date Last Indicated Resolved Time Rule Out COVID-19 01/24/2023 01/24/2023 01/24/2023 10:32 PM CDT documented as of this encounter Care Teams Merchandise Support Associate Relationship Specialty Start Date End Date Cyndie Eisenberg NP [address] [place] [address] PCP - General 09/25/19 Rodney Natarajan MD [address] [place] [address] 706245 General Surgery 09/25/19 Luna Simons MD [address] [place] [address] 349025 Hematology 09/25/19 Caroline Duque, RN Specialty Salvationist Breast Oncology 09/30/19 Martha White MD [address] [place] [address] [address] [place] [address] skirt trimmer 11/01/19 Pedrito Ramirez MD 6405 [facility] [address]200 [place] [address] Assigned Heart and Vascular Provider 03/20/20 11/07/20 Rodney Natarajan MD [address] [place] [address] 641285 Assigned Surgical Provider 03/20/20 08/07/21 Martha White MD 2312 S [facility] ST [facility] [address] [place], [place] 811754 Assigned Behavioral Health Provider 03/20/20 05/02/20 [place] [address] [place] [address] Assigned Behavioral Health Provider 05/03/20 06/29/23 [place] [address] [place] [address] skirt trimmer 06/10/20 Mio Mclean MD 420 [facility] 494 [place], [place] 791585 Assigned Cancer Care Provider 05/10/20 07/25/20 Luna Simons MD 420 [facility] 480 [place], [place] 658305 Assigned Cancer Care Provider 04/22/20 05/09/20 Luna Simons MD 420 [facility] 480 [place], [place] 005465 Assigned Cancer Care Provider 07/26/20 06/26/21 Jose Zaragoza, DIRECTOR [place] 6405 [place] [address] Assigned Heart and Vascular Provider 11/08/20 02/04/22 Mio Mclean MD 420 [facility] 494 [place] [address] Assigned Cancer Care Provider 06/27/21 09/11/21 Luna Simons MD 420 [facility] 480 [place] [address] Assigned Cancer Care Provider 09/12/21 01/18/24 Nadja Hagen MD [facility]2 S [facility] Floor 2, [address] [place], [place] 606334 Resident Psychiatry 04/01/22 05/13/24 Batool Atkinson, PhD LP [address] [place] [address] [address]282 [place] [address] Psychologist Licensed Mental Health 04/01/22 Prisca Miller MD 516 [facility] 295 [place], [place] 535785 Resident Neurology 02/10/23 Jennyfer Steele APRN PASTE MIXING SUPERVISOR [facility]2 S [facility] [address]275 [place], [place] 0[address]304 Nurse Practitioner Psychiatry 02/23/23 Jennyfer Steele APRN PASTE MIXING SUPERVISOR [facility]2 S [facility] [address]275 [place], [place] 303944 Assigned Behavioral Health Provider 06/30/23 Sadaf Apple NP Assigned PCP 07/21/23 09/18/23 [facility] [address] [place] [address] Assigned PCP 09/19/23 Yamel Saha PA-C [address] [place] [address] Assigned Cancer Care Provider 01/19/24 04/19/24 Luna Simons MD [address] [place] [address] Assigned Cancer Care Provider 04/20/24 documented as of this encounter
--- OUTSIDE RECORDS SUMMARY | 2024-10-15 18:42 | XMS_ITS | Encounter Summary ---
Author Organization [place] Address [address] [place] [address] Care Team Providers Care Medical Records Assistant Name Role Phone Cyndie Eisenbreg NP Primary Care Provider + Rodney Natarajan MD Unavailable [phone] Luna Simons MD Unavailable Caroline Duque RN Unavailable [phone] Martha White MD Unavailable Pedrito Ramirez MD Unavailable [phone] Rodney Natarajan MD Unavailable [phone] Luna Simons MD Unavailable Martha White MD Unavailable Moi Mclean MD Unavailable [phone] Ankita Park MD Unavailable [phone] Ankita Park MD Unavailable [phone] Mio Mclean MD Unavailable [phone] Luna Simons MD Unavailable Luna Simons MD Unavailable Jose Zaragoza NP Unavailable Mio Mclean MD Unavailable [phone] Luna Simons MD Unavailable [phone] Nadja Hagen MD Unavailable [phone] Batool Atkinson PhD LP Unavailable [phone] Prisca Miller MD Unavailable [phone] Ivette Jennyferjulieth Rodrigues APRN FLAGMAN Unavailable + Jennyfer Steele APRN FLAGMAN Unavailable + Sadaf Apple NP Unavailable Unavailable Clinic - [facility] Unavailabl e Yamel Saha PA-C Unavailable [phone] Luna Simons MD Unavailable [phone] Encounter Details Date Type Department Care Team (Late Contact Info) Description 04/03/2020 MyC Medical [facility]ice [facility] [address] [place] [address] Arpita Mohr PA-C [address] [place] [address] Social History Tobacco Use Types Packs/Day [...] COVID-19? No / Unsure 04/03/2020 8:05 AM EQUIPMENT INSTALLER documented as of this encounter Plan of Treatment Upcoming Encounters Date Type Department Care Team (Late Contact Info) Description 09/15/2025 9:15 AM CDT Ancillary Procedure [facility] Imaging [address] [phone] Luna Simons MD 420 [facility] 480 [place], [place] 55[address]85 09/15/2025 10:00 AM CDT Oncology Visit [facility] 909 [facility] [place] [phone] Luna Simons MD 420 [facility] 480 [place], [place] [address]365 documented as of this encounter Visit Diagnoses Not on filedocumented in this encounter Additional Health Concerns Infection Onset Date Last Indicated Resolved Time Rule Out COVID-19 01/24/2023 01/24/2023 01/24/2023 10:32 PM CDT documented as of this encounter Care Teams Medical Records Assistant Relationship Specialty Start Date End Date Cyndie Eisenberg NP [address] [place] [address] PCP - General 09/25/19 Rodney Natarajan MD [address] [place] [address] 195 [place], [place] 758735 General Surgery 09/25/19 Luna Simons MD [address] [place] [address] 480 [place], [place] 209945 Hematology 09/25/19 Caroline Duque, RN Specialty Real Estate Closer Breast Oncology 09/30/19 Martha White MD [address] [place] [address] [address] [place] [address] clinical resource director 11/01/19 Pedrito Ramirez MD 6405 [facility] [address] [place] [address] Assigned Heart and Vascular Provider 03/20/20 11/07/20 Rodney Natarajan MD 420 [facility] [facility] 195 [place] [address] Assigned Surgical Provider 03/20/20 08/07/21 Luna Simons MD 420 [facility] 480 [place] [address] Assigned Cancer Care Provider 03/20/20 04/11/20 Martha White MD [address] [place] [address] [address] [place], [place] 358604 Assigned Behavioral Health Provider 03/20/20 05/02/20 Mio Mclean MD 420 [facility] 494 [place], [place] 935665 Assigned Cancer Care Provider 04/12/20 04/21/20 Ankita Park MD 2450 [facility] [address] [address] Assigned Behavioral Health Provider 05/03/20 06/29/23 Ankita Park MD [facility] [address] [phone] clinical resource director 06/10/20 Mio Mclean MD 420 [facility] 494 [place] [address] Assigned Cancer Care Provider 05/10/20 07/25/20 Luna Simons MD 420 [facility] 480 [place] [address] Assigned Cancer Care Provider 04/22/20 05/09/20 Luna Simons MD 420 [facility] 480 [place] [address] Assigned Cancer Care Provider 07/26/20 06/26/21 Jose Zaragoza, INSIDE HORTICULTURAL SPECIALTY GROWER [address] [facility] [place] [address]205 Assigned Heart and Vascular Provider 11/08/20 02/04/22 Mio Mclean MD 420 [facility] 494 [place], [place] [address]015 Assigned Cancer Care Provider 06/27/21 09/11/21 Luna Simons MD 420 [facility] 480 [place] [address] Assigned Cancer Care Provider 09/12/21 01/18/24 Nadja Hagen MD [address] Floor 2, [address] [place], [place] 202994 Resident Psychiatry 04/01/22 05/13/24 Batool Atkinson, PhD LP [address] [place], [place] 473[address] Psychologist Licensed Mental Health 04/01/22 Prisca Miller MD 516 [facility] 295 [place], [place] 468395 Resident Neurology 02/10/23 Jennyfer Steele APRN [place] 2312 S [facility] F275 [place], [place] 165114 Nurse Practitioner Psychiatry 02/23/23 Jennyfer Steele APRN [place] 2312 S [facility] [address]275 [place], [place] 975124 Assigned Behavioral Health Provider 06/30/23 Sadaf Apple NP Assigned PCP 07/21/23 09/18/23 [facility] [address] [place] [address] Assigned PCP 09/19/23 Yamel Saha PA-C [address] [place] [address] 450945 Assigned Cancer Care Provider 01/19/24 04/19/24 Luna Simons MD [address] [place] [address] 790355 Assigned Cancer Care Provider 04/20/24 documented as of this encounter
--- OUTSIDE RECORDS SUMMARY | 2024-10-15 18:42 | XMS_ITS | Encounter Summary ---
Author Organization [place] Address [address] [place] [address] Care Team Providers Care Optical Instrument Assembly Supervisor Name Role Phone Cyndie Eisenberg NP Primary Care Provider + Rodney Natarajan MD Unavailable [phone] Luna Simons MD Unavailable Caroline Duque RN Unavailable [phone] Martha White MD Unavailable [phone] Pedrito Ramirez MD Unavailable [phone] Rodney Natarajan MD Unavailable [phone] Martha White MD Unavailable Ankita Park MD Unavailable [phone] Ankita Park MD Unavailable [phone] Mio Mclean MD Unavailable [phone] Luna Simons MD Unavailable Luna Simons MD Unavailable Jose Zaragoza NP Unavailable Mio Mclean MD Unavailable [phone] Luna Simons MD Unavailable [phone] Nadja Hagen MD Unavailable [phone] Batool Atkinson PhD LP Unavailable [phone] Prisca Miller MD Unavailable [phone] IvetteJennyfer vaughan KEVIN HADOOP ADMINISTRATOR Unavailable + Ramin Steelejulieth Rodrigues APRN HADOOP ADMINISTRATOR Unavailable + Sadaf Apple NP Unavailable Unavailable Clinic - [facility] Unavailabl e Yamel Saha PA-C Unavailable [phone] Luna Simons MD Unavailable [phone] Reason for Visit * Reason Onset Date Comments Symptoms 04/22/2020 Pt has a referra l to see for dermatology Encounter Details Date Type Department Care Team (Late st Contact Info) Description 04/22/2020 Telephone [facility] [address] [place] [address] None Symptoms (Pt has a [...] How often do you attend chur or hoahaoism services? More than 4 times per year 06/22/2023 Do you belong to any clubs o r organizations such as scientology groups, unions, fraternal or athletic groups, or [...] Date Recorded PHQ-2 Score 0 09/10/2024 [facility] - Occupational Stress Questionnaire Answer Date [...] of Assessment Author 0 06/22/2023 4:07 PM ORAL SURGERY PHYSICIAN Braden Fleming * Q1: How often do you have a drink containing alcohol? Answer Date of Assessment Author Never 06/22/2023 4:07 PM ORAL SURGERY PHYSICIAN Braden Fleming * Q2: How many drinks containing alcohol do you have on a typical day when you are drinking? Answer Date of Assessment Author Patient does not drink 06/22/2023 4:07 PM ORAL SURGERY PHYSICIAN Drew Naranjo * Q3: How often do you have six or more drinks on one occasion? Answer Date of Assessment Author Never 06/22/2023 4:07 PM ORAL SURGERY PHYSICIAN Braden Fleming documented as of this encounter Miscellaneous Notes * Telephone Encounter - Krys Toribio CMA - 04/22/2020 4:00 PM ORAL SURGERY PHYSICIAN I called and left a informing Anjelica that we do not have anything soon but she can get scheduledat our next available. Clinic number provided for call back. SURGERY PHYSICIAN * Telephone Encounter - No Mccloud - [...] Center ([facility]): derm Travel Screening: Not Applicable SURGERY PHYSICIAN documented in this encounter Plan of Treatment Upcoming Encounters Date Type Department Care Team (Late st Contact Info) Description 09/15/2025 9:15 AM CDT Ancillary Procedure [facility] Breast Center Imaging [address] 2nd [place] [address] Luna Simons MD 420 [facility] 480 [place], [place] [address] 09/15/2025 10:00 AM CDT Oncology Visit [facility] [address] [place] [address] Luna Simons MD [address] [place] [address] documented as of this encounter Visit Diagnoses Not on filedocumented in this encounter Additional Health Concerns Infection Onset Date Last Indicated Resolved Time Rule Out COVID-19 01/24/2023 01/24/2023 01/24/2023 10:32 PM CDT documented as of this encounter Care Teams Optical Instrument Assembly Supervisor Relationship Specialty Start Date End Date Cyndie Eisenberg NP [address] [place] [address] PCP - General 09/25/19 Rodney Natarajan MD [address] [place] [address] 195 [place], [place] [phone] General Surgery 09/25/19 Luna Simons MD [address] [place] [address] 480 [place] [address] Hematology 09/25/19 Caroline Duque, RN Specialty Superintendent Landfill Operations Breast Oncology 09/30/19 Martha White MD [address] [place] [address] [place], [place] 605[address] energy derivatives trader 11/01/19 Pedrito Ramirez MD 6405 [facility] W200 [place], [place] 89[address]35 Assigned Heart and Vascular Provider 03/20/20 11/07/20 Rodney Natarajan MD 420 [facility] 195 [place], [place] 34909[address] Assigned Surgical Provider 03/20/20 08/07/21 Martha White MD [address] [place] [address] [place], [place] 177994 Assigned Behavioral Health Provider 03/20/20 05/02/20 Ankita Park MD 2450 [facility] [place] [address] Assigned Behavioral Health Provider 05/03/20 06/29/23 Ankita Park MD 2450 [facility] [address] [address] energy derivatives trader 06/10/20 Mio Mclean MD [address] [place] [address] 494 [place], [place] 777165 Assigned Cancer Care Provider 05/10/20 07/25/20 Luna Simons MD 420 [facility] 480 [place] [address] Assigned Cancer Care Provider 04/22/20 05/09/20 Luna Simons MD 420 [facility] 480 [place] [address] Assigned Cancer Care Provider 07/26/20 06/26/21 Jose Zaragoza, DIETITIAN TEACHER 6405 [facility] [place] [address] Assigned Heart and Vascular Provider 11/08/20 02/04/22 Mio Mclean MD 420 [facility] 494 [place], [place] 966465 Assigned Cancer Care Provider 06/27/21 09/11/21 Luna Simons MD 420 [facility] 480 [place] [address] Assigned Cancer Care Provider 09/12/21 01/18/24 Nadja Hagen MD [address]12 [address] 6th Floor 2, [address] [place], [place] 139684 Resident Psychiatry 04/01/22 05/13/24 Batool Atkinson, PhD LP [address] [place], [place] 0[address] Psychologist Licensed Mental Health 04/01/22 Prisca Miller MD 516 [facility] 295 [place], [place] 207185 Resident Neurology 02/10/23 Jennyfer Steele APRN HADOOP ADMINISTRATOR [address] [facility] [address] [place], [place] [address] Nurse Practitioner Psychiatry 02/23/23 Jennyfer Steele APRN HADOOP ADMINISTRATOR [address] [facility] [address] [place], [place] 415204 Assigned Behavioral Health Provider 06/30/23 Sadaf Apple NP Assigned PCP 07/21/23 09/18/23 [facility] [address] [place] [address] Assigned PCP 09/19/23 Yamel Saha PA-C [address] [place] [address] [id number] Assigned Cancer Care Provider 01/19/24 04/19/24 Luna Simons MD [address] [place] [address] 11848455 Assigned Cancer Care Provider 04/20/24 documented as of this encounter
--- OUTSIDE RECORDS SUMMARY | 2024-10-15 18:42 | XMS_ITS | Clinical Summary ---
Author Organization [employer] [facility] Address [address] [place] [address] Care Team Providers Care Artists' Booking Representative Name Role Phone Clinic, No Pcp Or [...] surgery [id number] Check 10.20 for EOTDMarkus Simons [facility] Added automatically from request for surgery [id number] Check 6.21 for EOTD. Simons [facility] Added automatically from request for surgery [id number] Added automatically from request for surgery [id number] Check 10.20 for EOTD. Ronak [facility] Added automatically from request for surgery [id number] Check 6.21 for EOTD. Vancecyndee [facility] Added automatically from request for surgery [id number] [...] NON-[place]-ITS BLUE CROSS OF NON-[place]-ITS Care Teams Artists' Booking Representative Relationship Specialty Start Date End Date Clinic, No Pcp Or . PCP - General 01/30/23
--- OUTSIDE RECORDS SUMMARY | 2024-10-15 18:42 | XMS_ITS | Clinical Summary ---
Author Organization [employer] Address [address] [place] [address] Care Team Providers Care Compressor Assembler Name Role Phone Lucita French MD Primary Care Provider Source Comments You are receiving this document as you are listed as the primary care provider,follow-up provider, or the patient has been referred to you for consultation.This is in compliance with the Medicare and[facility] Hospital[facility] EHR Incentive Program,which states Providers who transition their patient to another setting of careor provider of care or refers their patient to another provider of care shouldprovide summary care record for each transition of care or referral. [facility] Allergies No known active allergies Medications DULoxetine [...] (09/20/2019): Added automatically from request for surgery [id number] Invasive ductal carcinoma of breast, right 09/19 Overview (01/27/2021): Check 10.20 for EOTD. [facility] Added automatically from request for surgery [id number] Check 6.21 for EOTD. [facility] Added automatically from request for surgery [id number] Added automatically from request for surgery [id number] H/O LEEP 09/20/2019 Overview (01/27/2021): 2008 2008 [...] CDT Respiratory Rate 18 04/08/2022 10:18 AM FRAMING SPECIALIST Oxygen Saturation 99% 12/15/2022 10:48 AM CDT Inhaled Oxygen Concentration - - Weight 57.2 kg (126 lb 3.2 oz) 12/15/2022 10:48 AM CDT Height 160 cm (5' 3) 04/08/2022 10:18 AM FRAMING SPECIALIST Body Mass Index 22.36 04/08/2022 10:18 AM FRAMING SPECIALIST Plan of Treatment Health Maintenance Due Date [...] AG/AB 4TH GEN Routine 04/05/2022 11:54 AM FRAMING SPECIALIST Screening for HIV (human immunodeficiency virus) HEPATITIS C ANTIBODY, WITH REFLEX Routine 04/05/2022 11:54 AM FRAMING SPECIALIST Need for hepatitis C screening test HPV WITH 16 18 GENOTYPING, CERVICAL/ENDOCERV ICAL Routine 10/09/2020 8:45 AM CDT Annual physical exam MM MAMMOGRAM DIAG BILAT W 3D ASHU YENNY 09/10/2019 9:32 AM CDT from Last 3 Months or Most Recently Relevant to Health Maintenance Results * HIV 1/2 Ag/Ab 4th Generation (04/05/2022 11:54 AM FRAMING SPECIALIST) HIV 1/2 Antigen/Antib marilee (4th generation) Negative (Non Reactive) Negative (Non Reactive) 04/05/2022 6:29 PM FRAMING SPECIALIST [facility] Comment:HIV-1 p24 Antigen an d HIV-1/HIV-2 Antibody not detected Blood Venipuncture / Unknown 04/05/2022 11:54 AM FRAMING SPECIALIST 04/05/2022 11:54 AM FRAMING SPECIALIST us Anjelica Camarena MD LAB_1 Final Result [facility] [address] [place] [address], [facility] * Hepatitis C Antibody, with Reflex (04/05/2022 11:54 AM FRAMING SPECIALIST) Hepatitis C Antibody Negative (Non Reactive) Negative (Non Reactive) 04/05/2022 6:29 PM FRAMING SPECIALIST [facility] Comment:Antibodies to HCV no t detected. Does not exclude the possiblity of exposure to HCV. Blood Venipuncture / Unknown 04/05/2022 11:54 AM FRAMING SPECIALIST 04/05/2022 11:54 AM FRAMING SPECIALIST us Anjelica Camarena MD LAB_1 Final Result Performing Organization Address City/[facility]/ZIP Co de Phone Number [facility] [address] * HPV with 16 18 Genotyping (10/09/2020 8:45 AM CDT) HPV High Risk 16 Negative Negative 10/09/2020 3:35 PM CDT [facility] HPV High Risk 18 Negative Negative 10/09/2020 3:35 PM CDT [facility] HPV High Risk Other Than 16/18 Negative Negative 10/09/2020 3:35 PM CDT [facility] Other (Type-in) ENTIRE ENDOCERVIX / Unknown 10/06/2020 10:27 AM CDT 10/09/2020 8:45 AM CDT us Cyndie Eisenberg APRN, CNP LAB_1 Fin al Result HP CONVERSION [facility] [address] [place] [address] * MM Mammogram Diag Bilat W 3D [...] of this examination. us Cyndie Eisenberg APRN, BRACELET FORMER RAD SAMANTHA Fin al Result from Last 3 Months or Most Recently Relevant to Health Maintenance Insurance BCBS OUT OF STATE Member Subscriber Plan / Payer (Ef fective 2019-Present) Name:Anjelica Matthew Relation to Subscriber:Spouse Name:MOMO MATTHEW Date of :1979 (Home) Address: [address] [place] [address] [address] [place] [address] Payer ID:[id number] ([facility]) Type:Commercial Address: [facility] [id number] [place] [id number] BCBS OUT OF STATE [facility] OUT OF STATE Advance Directives * Full Code (Latest Code Status on File) Date Activated Date Inactivated Comments 08/25/2020 6:57 AM 08/24/2020 7:00 PM * Full Code Date Activated Date Inactivated Comments 08/25/2020 6:57 AM 08/26/2020 10:32 AM Care Teams Compressor Assembler Relationship Specialty Start Date End Date Lucita French MD [address] [place] [address] PCP - General Family Practice 07/15/21
--- OUTSIDE RECORDS SUMMARY | 2024-10-15 18:42 | XMS_ITS | Encounter Summary ---
Author Organization [facility] Address [address] [place] [address] Care Team Providers Care Farmworker Dairy Name Role Phone Cyndie Eisenberg NP Primary Care Provider + Rodney Natarajan MD Unavailable [phone] Luna Simons MD Unavailable Caroline Duque RN Unavailable [phone] Martha White MD Unavailable Pedrito Ramirez MD Unavailable [phone] Rodney Nataarjan MD Unavailable [phone] Luna Simons MD Unavailable Martha White MD Unavailable Mio Mclean MD Unavailable [phone] Ankita Park MD Unavailable [phone] [place] MD Unavailable [phone] Mio Mclean MD Unavailable [phone] Luna Simons MD Unavailable Luna Simons MD Unavailable Jose Zaragoza NP Unavailable Mio Mclean MD Unavailable [phone] Luna Simons MD Unavailable [phone] Nadja Hagen MD Unavailable [phone] Batool Atkinson PhD LP Unavailable [phone] Prisca Miller MD Unavailable [phone] Ramin Steelen Ravi COIL FINISHER SUPERVISOR EDGING Unavailable + Jennyfer Steele APRN SUPERVISOR EDGING Unavailable + Sadaf Apple NP Unavailable Unavailable [facility] Unavailabl e Yamel Saha PA-C Unavailable [phone] Luna Simons MD Unavailable [phone] Reason for Visit * Reason Onset Date Comments Medication Question 12/06/2019 Topamax tape r, med plans Encounter Details Date Type Department Care Team (Latest Contact Info) Description 12/06/2019 MyC Medical Advice [facility] [place] [id number] [facility] [address] [address] Martha White MD [facility] [address] [place] [address] Medication Question (Topamax taper, med [...] Procedure [facility] Imaging [place] [address] [place] [phone] Luna Simons MD 420 [facility] 480 [place], [place] 229435 09/15/2025 10:00 AM CDT Oncology Visit [facility] [address] [facility] [place] [phone] Luna Simons MD 420 [facility] [address] [place] [address] documented as of this encounter Visit Diagnoses Not on filedocumented in this encounter Additional Health Concerns Infection Onset Date Last Indicated Resolved Time Rule Out COVID-19 01/24/2023 01/24/2023 01/24/2023 10:32 PM CDT documented as of this encounter Care Teams Farmworker Dairy Relationship Specialty Start Date End Date Cyndie Eisenberg NP [address] [place] [address] PCP - General 09/25/19 Rodney Natarajan MD [address] [place] [address] 195 [place], [place] 354685 General Surgery 09/25/19 Luna Simons MD [address] [place] [address] 480 [place], [place] 425495 Hematology 09/25/19 Caroline Duque, RN Specialty Dairy Clerk Breast Oncology 09/30/19 Martha White MD [address] [place] [address] [address] [place] [address] elementary librarian 11/01/19 Pedirto Ramirez MD 6405 [facility] [address] [place] [address] Assigned Heart and Vascular Provider 03/20/20 11/07/20 Rodney Natarajan MD [address] [facility] 195 [place] [address] Assigned Surgical Provider 03/20/20 08/07/21 Luna Simons MD 420 [facility] 480 [place] [address] Assigned Cancer Care Provider 03/20/20 04/11/20 Martha White MD [facility] [address] [place], [place] 270[address] Assigned Behavioral Health Provider 03/20/20 05/02/20 Mio Mcelan MD 420 [facility] 494 [place], [place] 977235 Assigned Cancer Care Provider 04/12/20 04/21/20 Ankita Park MD [facility] [phone] Assigned Behavioral Health Provider 05/03/20 06/29/23 Ankita Park MD [address] [place], [place] [address]E [address] [address] elementary librarian 06/10/20 Mio Mclean MD 420 [facility] 494 [place] [address] Assigned Cancer Care Provider 05/10/20 07/25/20 Luna Simons MD 420 [facility] [address] [place] [address] Assigned Cancer Care Provider 04/22/20 05/09/20 Luna Simons MD 420 [facility] [address] [place] [address] Assigned Cancer Care Provider 07/26/20 06/26/21 Jose Zaragoza, MONKEY KEEPER [address] [place] 187425 Assigned Heart and Vascular Provider 11/08/20 02/04/22 Mio Mclean MD 420 [facility] 494 [place], [place] 551335 Assigned Cancer Care Provider 06/27/21 09/11/21 Luna Simons MD 420 [facility] [address] [place] [address] Assigned Cancer Care Provider 09/12/21 01/18/24 Nadja Hagen MD [address], [address] [place], [place] [address] Resident Psychiatry 04/01/22 05/13/24 Batool Atkinson, PhD LP [address] [place], [place] 0980[address] Psychologist Licensed Mental Health 04/01/22 Prisca Miller MD 516 [facility] 295 [place], [place] 040365 Resident Neurology 02/10/23 Jennyfer Steele APRN SUPERVISOR EDGING [address] S [facility] [address] [place], [place] 163174 Nurse Practitioner Psychiatry 02/23/23 Jennyfer Steele APRN SUPERVISOR EDGING [address] [place] [address] [address] [place], [place] 096364 Assigned Behavioral Health Provider 06/30/23 Sadaf Apple NP Assigned PCP 07/21/23 09/18/23 [facility] [address] [place] [address] Assigned PCP 09/19/23 Yamel Saha PA-C [address] [place] [address] 864665 Assigned Cancer Care Provider 01/19/24 04/19/24 Luna Simons MD [address] [place] [address] 786745 Assigned Cancer Care Provider 04/20/24 documented as of this encounter
--- OUTSIDE RECORDS SUMMARY | 2024-10-15 18:42 | XMS_ITS | Encounter Summary ---
Author Organization [facility] Address [address] [place] [address] Care Team Providers Care Vest Tailor Name Role Phone Cyndie Eisenberg NP Primary Care Provider + Rodney Natarajan MD Unavailable [phone] Luna Simons MD Unavailable Caroline Duque RN Unavailable [phone] Martha White MD Unavailable Pedrito Ramirez MD Unavailable [phone] Rodney Natarajan MD Unavailable [phone] Martha White MD Unavailable Ank[place] Park MD Unavailable [phone] [place] Park MD Unavailable [phone] Mio Mclean MD Unavailable [phone] Luna Simons MD Unavailable Luna Simons MD Unavailable Jose Zaragoza NP Unavailable Mio Mclean MD Unavailable [phone] Luna Simons MD Unavailable Nadja Hagen MD Unavailable [phone] Batool Atkinson PhD LP Unavailable [phone] Prisca Miller MD Unavailable [phone] Jennyfer Steele KEVIN MS SQL SERVER DEVELOPER Unavailable + Jennyfer Steele KEVIN MS SQL SERVER DEVELOPER Unavailable + Sadaf Apple NP Unavailable Unavailable [facility] Unavailabl e Yamel Saha PA-C Unavailable [phone] Luna Simons MD Unavailable [phone] Encounter Details Date Type Department Care Team (Late st Contact Info) Description 04/30/2020 MyC Medical Advice [facility] [address] 5th [place] [address] Valerie Pike RN Social History [...] COVID-19? No / Unsure 05/03/2020 11:32 AM PROGRAM LEAD documented as of this encounter Plan of Treatment Upcoming Encounters Date Type Department Care Team (Late st Contact Info) Description 09/15/2025 9:15 AM CDT Ancillary Procedure [facility] Imaging [address] 2nd [place] [address] Luna Simons MD [address] [place] [address] 480 [place] [address] 09/15/2025 10:00 AM CDT Oncology Visit [facility] 909 [place] [phone] Luna Simons MD [address] 160605 documented as of this encounter Visit Diagnoses Not on filedocumented in this encounter Additional Health Concerns Infection Onset Date Last Indicated Resolved Time Rule Out COVID-19 01/24/2023 01/24/2023 01/24/2023 10:32 PM CDT documented as of this encounter Care Teams Vest Tailor Relationship Specialty Start Date End Date Cyndie Eisenberg NP [address] [place] [address] PCP - General 09/25/19 Rodney Natarajan MD [address] [place] [address] 344565 General Surgery 09/25/19 Luna Simons MD [address] [place] [address] 791795 Hematology 09/25/19 Caroline Duque, RN Specialty Retail Business Development Manager Breast Oncology 09/30/19 Martha White MD [address] [facility] [place] [address] [place] [address] sales team member 11/01/19 Pedrito Ramirez MD [address] [facility] [address] [place] [address] Assigned Heart and Vascular Provider 03/20/20 11/07/20 Rodney Natarajan MD [address] [place] [address] Assigned Surgical Provider 03/20/20 08/07/21 Martha White MD [address] [place] [address] [address] [place], [place] 225994 Assigned Behavioral Health Provider 03/20/20 05/02/20 Ankita Park MD [address] [place] [address] Assigned Behavioral Health Provider 05/03/20 06/29/23 Ankita Park MD [address] [place] [phone] sales team member 06/10/20 Mio Mclean MD 420 [facility] 494 [place] [address] Assigned Cancer Care Provider 05/10/20 07/25/20 Luna Simons MD [address] [place] [address] 480 [place], [place] 162905 Assigned Cancer Care Provider 04/22/20 05/09/20 Luna Simons MD 420 [facility] 480 [place] [address] Assigned Cancer Care Provider 07/26/20 06/26/21 Jose Zaragoza, ELECTRONIC PREPRESS TECHNICIAN 6405 [place] [address] Assigned Heart and Vascular Provider 11/08/20 02/04/22 Mio Mclean MD 420 [facility] 494 [place] [address] Assigned Cancer Care Provider 06/27/21 09/11/21 Luna Simons MD 420 [facility] 480 [place] [address] Assigned Cancer Care Provider 09/12/21 01/18/24 Nadja Hagen MD [facility] S [facility] Floor 2, [address] [place], [place] [address] Resident Psychiatry 04/01/22 05/13/24 Batool Atkinson, PhD LP [address] [place] [address] [address] [place], [place] 189984 Psychologist Licensed Mental Health 04/01/22 Prisca Miller MD 516 [facility] 295 [place], [place] 178165 Resident Neurology 02/10/23 Jennyfer Steele APRN MS SQL SERVER DEVELOPER [address] [facility] [place] [address] [place], [place] 482644 Nurse Practitioner Psychiatry 02/23/23 Jennyfer Steele APRN MS SQL SERVER DEVELOPER [facility] S [facility] [place] [address] [place] [address] Assigned Behavioral Health Provider 06/30/23 Sadaf Apple NP Assigned PCP 07/21/23 09/18/23 [facility] [address] [place] [address] Assigned PCP 09/19/23 Yamel Saha PA-C [address] [address] Assigned Cancer Care Provider 01/19/24 04/19/24 Luna Simons MD [address] [place] [address] 900655 Assigned Cancer Care Provider 04/20/24 documented as of this encounter
--- OUTSIDE RECORDS SUMMARY | 2024-10-15 18:42 | XMS_ITS | Encounter Summary ---
Author Organization [facility] Address [address] [place] [address] Care Team Providers Care Facility Rehab Director Name Role Phone Cyndie Eisenberg NP Primary Care Provider + Rodney Natarajan MD Unavailable [phone] Luna Simons MD Unavailable Caroline Duque RN Unavailable [phone] Martha White MD Unavailable Pedrito Ramirez MD Unavailable [phone] Rodney Natarajan MD Unavailable [phone] Luna Simons MD Unavailable Martha White MD Unavailable Mio Mclean MD Unavailable [phone] Ankita Park MD Unavailable [phone] [place] Park MD Unavailable Mio Mclean MD Unavailable [phone] Luna Simons MD Unavailable Luna Simons MD Unavailable [phone] Jose Zaragoza NP Unavailable Mio Mclean MD Unavailable [phone] Luna Simons MD Unavailable [phone] Nadja Hagen MD Unavailable [phone] Batool Atkinson PhD LP Unavailable [phone] Prisca Miller MD Unavailable [phone] Ramin Steelen Ravi CASTER INVESTMENT CASTING MEDICAL RESIDENT Unavailable + IvetteJennyfer vaughan APRN MEDICAL RESIDENT Unavailable + Sadaf Apple NP Unavailable Unavailable [facility] Unavailabl e Yamel Saha PA-C Unavailable [phone] Luna Simons MD Unavailable [phone] Encounter Details Date Type Department Care Team (Late st Contact Info) Description 12/31/2019 MyC Medical Advice [facility] Cancer [address] [address] [facility] Social History Tobacco Use Types Packs/Day Years [...] Procedure [facility] Breast Center Imaging [address] 2nd [place] [address] Luna Simons MD [address] [place] [address] 09/15/2025 10:00 AM CDT Oncology Visit [facility] Cancer [address] [place] [phone] Luna Simons MD 420 [facility] 480 [place], [place] 7[address]255 documented as of this encounter Visit Diagnoses Not on filedocumented in this encounter Additional Health Concerns Infection Onset Date Last Indicated Resolved Time Rule Out COVID-19 01/24/2023 01/24/2023 01/24/2023 10:32 PM CDT documented as of this encounter Care Teams Facility Rehab Director Relationship Specialty Start Date End Date Cyndie Eisenberg, FACILITY REHAB DIRECTOR [address] [place] [address] PCP - General 09/25/19 Rodney Natarajan MD [address] [place] [address] 451285 General Surgery 09/25/19 Luna Simons MD [address] [place] [address] 251285 Hematology 09/25/19 Caroline Duque, RN Specialty Special Equipment Technician Breast Oncology 09/30/19 Martha White MD [facility] [address] [place] [address] [address] [place] [address] first responder 11/01/19 Pedrito Ramirez MD 6405 [facility] [address] [place], [place] 8[address]25 Assigned Heart and Vascular Provider 03/20/20 11/07/20 Rodney Natarajan MD [address] [place] [address] 195 [place], [place] 735505 Assigned Surgical Provider 03/20/20 08/07/21 Luna Simons MD 420 [facility] 480 [place] [address] Assigned Cancer Care Provider 03/20/20 04/11/20 Martha White MD [facility] [address] [place], [place] [address]694 Assigned Behavioral Health Provider 03/20/20 05/02/20 Mio Mclean MD [address] [address] Assigned Cancer Care Provider 04/12/20 04/21/20 Ankita Park MD [address] [place] [phone] Assigned Behavioral Health Provider 05/03/20 06/29/23 Ankita Park MD [address] [place] [phone] first responder 06/10/20 Mio Mclean MD [address] [address] Assigned Cancer Care Provider 05/10/20 07/25/20 Luna Simons MD 420 [facility] 480 [place] [address] Assigned Cancer Care Provider 04/22/20 05/09/20 Luna Simons MD 420 [facility] 480 [place] [address] Assigned Cancer Care Provider 07/26/20 06/26/21 Jose Zaragoza, FACILITY REHAB DIRECTOR 6405 [place] [address] Assigned Heart and Vascular Provider 11/08/20 02/04/22 Mio Mclean MD 420 [facility] 494 [place] [address] Assigned Cancer Care Provider 06/27/21 09/11/21 Luna Simons MD 420 [facility] 480 [place] [address] Assigned Cancer Care Provider 09/12/21 01/18/24 Nadja Hagen MD [address] [place] [address] Floor 2, [address] [place], [place] 58[address] Resident Psychiatry 04/01/22 05/13/24 Batool Atkinson, PhD LP 2450 [facility] [address] [place], [place] 108164 Psychologist Licensed Mental Health 04/01/22 Prisca Miller MD 6 [facility] 295 [place], [place] [address]315 Resident Neurology 02/10/23 Jennyfer Steele APRN MEDICAL RESIDENT [facility] [place] [address] [place] [address] Nurse Practitioner Psychiatry 02/23/23 Jennyfer Steele APRN MEDICAL RESIDENT [facility] S [facility] [address] [place] [address] Assigned Behavioral Health Provider 06/30/23 Sadaf Apple NP Assigned PCP 07/21/23 09/18/23 [facility] [address] [place] [address] Assigned PCP 09/19/23 Yamel Saha PA-C [address] 7[address] Assigned Cancer Care Provider 01/19/24 04/19/24 Luna Simons MD [address] [address] Assigned Cancer Care Provider 04/20/24 documented as of this encounter
--- OUTSIDE RECORDS SUMMARY | 2024-10-15 18:42 | XMS_ITS | Encounter Summary ---
Author Organization [place] Address [address] [place] [address] Care Team Providers Care Rn Quality Name Role Phone Cyndie Eisenberg NP Primary Care Provider + Rodney Natarajan MD Unavailable [phone] Luna Simons MD Unavailable Caroline Duque RN Unavailable +[phone] Martha White MD Unavailable Pedrito Ramirez MD Unavailable [phone] Rodney Natarajan MD Unavailable +[phone] Luna Simons MD Unavailable [phone] Martha White MD Unavailable [phone] Mio Mclean MD Unavailable +[phone] Ankita Park MD Unavailable +[phone] Ankita Park MD Unavailable [phone] Mio Mclean MD Unavailable +[phone] Luna Simons MD Unavailable Luna Simons MD Unavailable Jose Zaragoza NP Unavailable Mio Mclean MD Unavailable +[phone] Luna Simons MD Unavailable +[phone] Nadja Hagen MD Unavailable +[phone] Batool Atkinson PhD LP Unavailable [phone] Prisca Miller MD Unavailable +[phone] Jennyfer Steele FIRE PREVENTION SPECIALIST SALES SUPPORT SPECIALIST Unavailable + IvetteJennyfer APRN SALES SUPPORT SPECIALIST Unavailable + Sadaf Apple NP Unavailable Unavailable Clinic - [facility] Unavailabl e Yamel Saha PA-C Unavailable +[phone] Luna Simons MD Unavailable [phone] Encounter Details Date Type Department Care Team (Late st Contact Info) Description 11/28/2019 MyC Medical Advice [facility] [address] [place] [address] Luna Simons MD [address] [place] [address] Social History Tobacco Use Types Packs/Day [...] Description 09/15/2025 9:15 AM CDT Ancillary Procedure [facility] Breast [facility] Imaging [place] [address] [place] [address] 2nd [place] [address] Luna Simons MD [address] [place] [address] 09/15/2025 10:00 AM CDT Oncology Visit [facility] 909 [place] [phone] Luna Simons MD 420 [facility] 480 [place] [address] documented as of this encounter Visit Diagnoses Not on filedocumented in this encounter Additional Health Concerns Infection Onset Date Last Indicated Resolved Time Rule Out COVID-19 01/24/2023 01/24/2023 01/24/2023 10:32 PM CDT documented as of this encounter Care Teams Rn Quality Relationship Specialty Start Date End Date Cyndie Eiesnberg WAREHOUSE WORKER 2ND SHIFT [address] [place] [address] PCP - General 09/25/19 Rodney Natarajan MD 420 [facility] 195 [place] [address] General Surgery 09/25/19 Luna Simons MD [address] [place] [address] 480 [place] [address] Hematology 09/25/19 Caroline Duque, RN Specialty Distance Learning Technician Breast Oncology 09/30/19 Martha White MD [address] [place], [place] 628764 coke drawer 11/01/19 Pedrito Ramirez MD [address] [place] [place] [address] Assigned Heart and Vascular Provider 03/20/20 11/07/20 Rodney Natarajan MD 420 [facility] 195 [place] [address] Assigned Surgical Provider 03/20/20 08/07/21 Luna Simons MD 420 [facility] 480 [place] [address] Assigned Cancer Care Provider 03/20/20 04/11/20 Martha White MD [address] [place] [address] [address] [place], [place] 864984 Assigned Behavioral Health Provider 03/20/20 05/02/20 Mio Mclean MD 420 [facility] 494 [place] [address] Assigned Cancer Care Provider 04/12/20 04/21/20 Ankita Park MD [address] [address] Assigned Behavioral Health Provider 05/03/20 06/29/23 Ankita Park MD [address] [phone] coke drawer 06/10/20 Mio Mclean MD 420 [facility] [address] [place] [address] Assigned Cancer Care Provider 05/10/20 07/25/20 Luna Simons MD 420 [facility] [address] [place] [address] Assigned Cancer Care Provider 04/22/20 05/09/20 Luna Simons MD 420 [facility] [address] [place], [place] 491225 Assigned Cancer Care Provider 07/26/20 06/26/21 Jose Zaragoza, WAREHOUSE WORKER 2ND SHIFT 6405 [facility] [place] 272985 Assigned Heart and Vascular Provider 11/08/20 02/04/22 Mio Mclean MD 420 [facility] 494 [place], [place] 958335 Assigned Cancer Care Provider 06/27/21 09/11/21 Luna Simons MD 420 [facility] [address] [place], [place] 712815 Assigned Cancer Care Provider 09/12/21 01/18/24 Nadja Hagen MD [facility] S [facility] Floor 2, [address] [place], [place] 603704 Resident Psychiatry 04/01/22 05/13/24 Batool Atkinson, PhD LP [address] [place] [address] [address] [place], [place] 434954 Psychologist Licensed Mental Health 04/01/22 Prisca Miller MD 6 [facility] 295 [place], [place] 668055 Resident Neurology 02/10/23 Jennyfer Steele, FIRE PREVENTION SPECIALIST SALES SUPPORT SPECIALIST [address], [address] [place], [place] 803[address] Nurse Practitioner Psychiatry 02/23/23 Jennyfer Steele APRN SALES SUPPORT SPECIALIST 2312 [place] 2480875 [place], [place] 239974 Assigned Behavioral Health Provider 06/30/23 Sadaf Apple NP Assigned PCP 07/21/23 09/18/23 [facility] [address] [place] [address] Assigned PCP 09/19/23 Yamel Saha PA-C [address] 928525 Assigned Cancer Care Provider 01/19/24 04/19/24 Luna Simons MD [address] 734585 Assigned Cancer Care Provider 04/20/24 documented as of this encounter
--- OUTSIDE RECORDS SUMMARY | 2024-10-15 18:42 | XMS_ITS | Encounter Summary ---
Author Organization [facility] Address [address] [place] [address] Care Team Providers Care Manager Of Case Management Name Role Phone Cyndie Eisenberg NP Primary Care Provider + Rodney Natarajan MD Unavailable [phone] Luna Simons MD Unavailable [phone] Caroline Duque RN Unavailable [phone] Martha White MD Unavailable Pedrito Ramirez MD Unavailable [phone] Rodney Natarajan MD Unavailable [phone] Martha White MD Unavailable Aknita Park MD Unavailable Ankita Park MD Unavailable [phone] Mio Mclean MD Unavailable [phone] Luna Simons MD Unavailable [phone] Luna Simons MD Unavailable [phone] Jose Zaragoza NP Unavailable [phone] Mio Mclean MD Unavailable [phone] Luna Simons MD Unavailable Nadja Hagen MD Unavailable Batool Atkinson PhD LP Unavailable [phone] Prisca Miller MD Unavailable [phone] Jennyfer Steele KEVIN STOCK FITTER Unavailable + Jennyfer Steele KEVIN STOCK FITTER Unavailable + Sadaf Apple NP Unavailable Unavailable Clinic - [facility] Unavailabl e Yamel Saha PA-C Unavailable [phone] Luna Simons MD Unavailable [phone] Encounter Details Date Type Department Care Team (Late Contact Info) Description 04/22/2020 MyC Medical Advice [facility] Cancer [place] [address]29 [place] [address] Melisa Santos Social History Tobacco [...] COVID-19? No / Unsure 04/22/2020 8:28 AM DERMATOLOGY PROCEDURAL PHYSICIAN documented as of this encounter Plan of Treatment Upcoming Encounters Date Type Department Care Team (Late st Contact Info) Description 09/15/2025 9:15 AM CDT Ancillary Procedure [facility] Imaging [place] 909 [facility] 2nd [place] [address] Luna Simons MD [address] [place] [address] 09/15/2025 10:00 AM CDT Oncology Visit [facility] 909 [place] [phone] Luna Simons MD [address] 1025[address] documented as of this encounter Visit Diagnoses Not on filedocumented in this encounter Additional Health Concerns Infection Onset Date Last Indicated Resolved Time Rule Out COVID-19 01/24/2023 01/24/2023 01/24/2023 10:32 PM CDT documented as of this encounter Care Teams Manager Of Case Management Relationship Specialty Start Date End Date Cyndie Eisenberg NP [address] [place] [address] PCP - General 09/25/19 Rodney Natarajan MD [address] 093185 General Surgery 09/25/19 Luna Simons MD [address] 953365 Hematology 09/25/19 Caroline Duque, RN Specialty Director Law Enforcement Breast Oncology 09/30/19 Martha White MD [address] [place] [address] [address] [place] [address] furniture stainer 11/01/19 Pedrito Ramirez MD [address] [facility] [address] [place], [place] 862155 Assigned Heart and Vascular Provider 03/20/20 11/07/20 Rodney Natarajan MD [address] 1779[address] Assigned Surgical Provider 03/20/20 08/07/21 Martha White MD [facility] [address] [place], [place] 717934 Assigned Behavioral Health Provider 03/20/20 05/02/20 Ankita Park MD [address] [place] [address] Assigned Behavioral Health Provider 05/03/20 06/29/23 Ankita Park MD [address] [place] [address] furniture stainer 06/10/20 Mio Mclean MD [address] [address] Assigned Cancer Care Provider 05/10/20 07/25/20 Luna Simons MD [address] 458985 Assigned Cancer Care Provider 04/22/20 05/09/20 Luna Simons MD [address] [address] Assigned Cancer Care Provider 07/26/20 06/26/21 Jose Zaragoza, DUPLICATING MACHINE OPERATOR 6405 [facility] [place] [address] Assigned Heart and Vascular Provider 11/08/20 02/04/22 Mio Mclean MD [address] [place] [address] Assigned Cancer Care Provider 06/27/21 09/11/21 Luna Simons MD 420 [facility] 480 [place] [address] Assigned Cancer Care Provider 09/12/21 01/18/24 Nadja Hagen MD [address] [place] [address] Floor 2, [address] [place], [place] 812634 Resident Psychiatry 04/01/22 05/13/24 Batool Atkinson, PhD LP [address] [place] [address] [address] [place], [place] 9650[address] Psychologist Licensed Mental Health 04/01/22 Prisca Miller MD 516 [facility] 295 [place], [place] 275095 Resident Neurology 02/10/23 Jennyfer Steele APRN STOCK FITTER [address] [place] [address], [address] [place] [address] Nurse Practitioner Psychiatry 02/23/23 Jennyfer Steele APRN STOCK FITTER [address] [place] [address] [address] [place] [address] Assigned Behavioral Health Provider 06/30/23 Sadaf Apple NP Assigned PCP 07/21/23 09/18/23 [facility] [address] [place] [address] Assigned PCP 09/19/23 Yamel Saha PA-C [address] 305445 Assigned Cancer Care Provider 01/19/24 04/19/24 Luna Simons MD [address] 115[address] Assigned Cancer Care Provider 04/20/24 documented as of this encounter
--- OUTSIDE RECORDS SUMMARY | 2024-10-15 18:42 | XMS_ITS | Encounter Summary ---
Author Organization [facility] Address [address] [place] [address] Care Team Providers Care Airplane Patroller Name Role Phone Cyndie Eisenberg NP Primary Care Provider + Rodney Natarajan MD Unavailable [phone] Luna Simons MD Unavailable [phone] Caroline Duque RN Unavailable [phone] Martha White MD Unavailable Pedrito Ramirez MD Unavailable [phone] Rodney Natarajan MD Unavailable [phone] Luna Simons MD Unavailable Martha White MD Unavailable Mio Mclean MD Unavailable [phone] Ankita Park MD Unavailable [phone] Ankita Park MD Unavailable Mio Mclean MD Unavailable [phone] Luna Simons MD Unavailable Luna Simons MD Unavailable [phone] Jose Zaragoza NP Unavailable Mio Mclean MD Unavailable [phone] Luna Simons MD Unavailable [phone] Nadja Hagen MD Unavailable [phone] Batool Atkinson PhD LP Unavailable [phone] Prisca Miller MD Unavailable [phone] Ivette Jennyferjulieth Rodrigues APRN HOT WATER HEATER INSTALLER Unavailable + Jennyfer Steele APRN HOT WATER HEATER INSTALLER Unavailable + Sadaf Apple NP Unavailable Unavailable [facility] Unavailabl e Yamel Saha PA-C Unavailable [phone] Luna Simons MD Unavailable [phone] Encounter Details Date Type Department Care Team (Late st Contact Info) Description 03/30/2020 MyC Medical Advice [facility] Mental Health & Addiction [place] [id number] [address] [address] Ankita Park MD [address] [address] Social History Tobacco Use Types [...] COVID-19? No / Unsure 04/02/2020 2:29 PM PSYCHIATRIC CLINICIAN documented as of this encounter Plan of Treatment Upcoming Encounters Date Type Department Care Team (Late st Contact Info) Description 09/15/2025 9:15 AM CDT Ancillary Procedure [facility] Breast Center Imaging [address] 2nd [place] [phone] Luna Simons MD 420 [facility] 480 [place], [place] 045705 09/15/2025 10:00 AM CDT Oncology Visit [facility] 909 [place] [address] Luna Simons MD 420 [facility] 480 [place], [place] 227585 documented as of this encounter Visit Diagnoses Not on filedocumented in this encounter Additional Health Concerns Infection Onset Date Last Indicated Resolved Time Rule Out COVID-19 01/24/2023 01/24/2023 01/24/2023 10:32 PM CDT documented as of this encounter Care Teams Airplane Patroller Relationship Specialty Start Date End Date Cyndie Eisenberg NP [address] [place] [address] PCP - General 09/25/19 Rodney Natarajan MD [address] [place] [address] 195 [place] [address] General Surgery 09/25/19 Luna Simons MD [address] [place] [address] 480 [place], [place] 528405 Hematology 09/25/19 Caroline Duque, RN Specialty Nursing Unit Clerk Breast Oncology 09/30/19 Martha White MD [address] [place] [address] [address] [place] [address] personnel recruiter 11/01/19 Pedrito Ramirez MD [address] [place] [address] Assigned Heart and Vascular Provider 03/20/20 11/07/20 Rodney Natarajan MD 420 [facility] 195 [place] [address] Assigned Surgical Provider 03/20/20 08/07/21 Luna Simons MD 420 [facility] 480 [place] [address] Assigned Cancer Care Provider 03/20/20 04/11/20 Martha White MD [address] [place] [address] [address] [place], [place] 204624 Assigned Behavioral Health Provider 03/20/20 05/02/20 Mio Mclean MD 420 [facility] 494 [place], [place] 582265 Assigned Cancer Care Provider 04/12/20 04/21/20 Ankita Park MD 2450 [facility] [place] [address] Assigned Behavioral Health Provider 05/03/20 06/29/23 Ankita Park MD 2450 [facility] [place] [address] personnel recruiter 06/10/20 Mio Mclean MD 420 [facility] 494 [place] [address] Assigned Cancer Care Provider 05/10/20 07/25/20 Luna Simons MD 420 [facility] 480 [place] [address] Assigned Cancer Care Provider 04/22/20 05/09/20 Luna Simons MD 420 [facility] 480 [place] [address] Assigned Cancer Care Provider 07/26/20 06/26/21 Jose Zaragoza, SPECTROSCOPIST [address] [place] 2[address]95 Assigned Heart and Vascular Provider 11/08/20 02/04/22 Mio Mclean MD 420 [facility] 494 [place] [address] Assigned Cancer Care Provider 06/27/21 09/11/21 Luna Simons MD 420 [facility] 480 [place], [place] 807015 Assigned Cancer Care Provider 09/12/21 01/18/24 Nadja Hagen MD [address] Floor 2, [address] [place], [place] 5[address]244 Resident Psychiatry 04/01/22 05/13/24 Batool Atkinson, PhD LP 2450 [facility] F282 [place], [place] 14[address] Psychologist Licensed Mental Health 04/01/22 Prisca Miller MD 516 [facility] 295 [place], [place] 924705 Resident Neurology 02/10/23 Jennyfer Steele APRN HOT WATER HEATER INSTALLER [address] [place] [address] F275 [place] [address] Nurse Practitioner Psychiatry 02/23/23 Jennyfer Steele APRN HOT WATER HEATER INSTALLER [address] [place] [address] F275 [place] [address] Assigned Behavioral Health Provider 06/30/23 Sadaf Apple NP Assigned PCP 07/21/23 09/18/23 [facility] [address] [place] [address] Assigned PCP 09/19/23 Yamel Saha PA-C [address] 614555 Assigned Cancer Care Provider 01/19/24 04/19/24 Luna Simons MD [address] [address] Assigned Cancer Care Provider 04/20/24 documented as of this encounter
--- OUTSIDE RECORDS SUMMARY | 2024-10-15 18:42 | XMS_ITS | Encounter Summary ---
Author Organization [place] Address [address] [place] [address] Care Team Providers Care Tracing Lathe Set Up Operator Name Role Phone Cyndie Eisenberg NP Primary Care Provider + Rodney Natarajan MD Unavailable [phone] Luna Simons MD Unavailable Caroline Duque RN Unavailable [phone] Martha White MD Unavailable [phone] Pedrito Ramirez MD Unavailable [phone] Rodney Natarajan MD Unavailable Luna Simons MD Unavailable Martha White MD Unavailable Mio Mclean MD Unavailable [phone] Ankita Park MD Unavailable [phone] Ankita Park MD Unavailable [phone] Mio Mclean MD Unavailable [phone] Luna Simons MD Unavailable Luna Simons MD Unavailable Jose Zaragoza NP Unavailable Mio Mclean MD Unavailable [phone] Luna Simons MD Unavailable [phone] Nadja Hagen MD Unavailable [phone] Btaool Atkinson PhD LP Unavailable [phone] Prisca Miller MD Unavailable +[phone] Jennyfer Steele APRN BILLET SAWYER Unavailable + Jennyfer Steele APRN BILLET SAWYER Unavailable + Sadaf Apple NP Unavailable Unavailable Clinic - [facility] Unavailabl e Yamel Saha PA-C Unavailable +[phone] Luna Simons MD Unavailable [phone] Reason for Visit * Reason Onset Date Comments Medication Question 12/16/2019 Encounter Details Date Type Department Care Team (Latest Contact Info) Description 12/16/2019 [facility] Medical Advice [facility] Mental Health & Addiction [place] [id number] [address] [address] Martha White MD [address] [address] Medication Question Social History Tobacco [...] Description 09/15/2025 9:15 AM CDT Ancillary Procedure [facility] Breast Center Imaging [place] 909 [facility] 2nd [place] [address] Luna Simons MD 420 [facility] 480 [place], [place] 368435 09/15/2025 10:00 AM CDT Oncology Visit [facility] 909 [place] [address] Luna Simons MD 420 [facility] 480 [place], [place] 206024[address] documented as of this encounter Visit Diagnoses Diagnosis Anxiety Anxiety state, unspecified documented in this encounter Additional Health Concerns Infection Onset Date Last Indicated Resolved Time Rule Out COVID-19 01/24/2023 01/24/2023 01/24/2023 10:32 PM CDT documented as of this encounter Care Teams Tracing Lathe Set Up Operator Relationship Specialty Start Date End Date Cyndie Eisenberg NP [address] [place] [address] PCP - General 09/25/19 Rodney Natarajan MD 420 [facility] 195 [place], [place] 544355 General Surgery 09/25/19 Luna Simons MD 420 [facility] 480 [place], [place] [address] Hematology 09/25/19 Caroline Duque, RN Specialty Sales And Marketing Administrator Breast Oncology 09/30/19 Martha White MD [address] [place] [address] [address] [place], [place] 487234 signalling and communications engineer 11/01/19 Pedrito Ramirez MD 6405 [facility] [address] [place], [place] 4685[address] Assigned Heart and Vascular Provider 03/20/20 11/07/20 Rodney Natarajan MD 420 [facility] 195 [place], [place] 15233455 Assigned Surgical Provider 03/20/20 08/07/21 uLna Simons MD 420 [facility] 480 [place], [place] 56[address] Assigned Cancer Care Provider 03/20/20 04/11/20 Martha White MD [address] [place] [address] [address] [place], [place] 611864[address] Assigned Behavioral Health Provider 03/20/20 05/02/20 Mio Mclean MD 420 [facility] 494 [place], [place] 406534[address] Assigned Cancer Care Provider 04/12/20 04/21/20 Ankita Park MD 2450 [facility] [address] [place] [address] Assigned Behavioral Health Provider 05/03/20 06/29/23 Ankita Park MD [address] [address] signalling and communications engineer 06/10/20 Mio Mclean MD [address] 768[address] Assigned Cancer Care Provider 05/10/20 07/25/20 Luna Simons MD 420 [facility] 480 [place] [address] Assigned Cancer Care Provider 04/22/20 05/09/20 Luna Simons MD [address] [address] Assigned Cancer Care Provider 07/26/20 06/26/21 Jose Zaragoza, SPEAKING UNIT ASSEMBLER 6405 [facility] [place] [address] Assigned Heart and Vascular Provider 11/08/20 02/04/22 Mio Mclean MD [address] [place] [address] Assigned Cancer Care Provider 06/27/21 09/11/21 Luna Simons MD [address] [place] [address] Assigned Cancer Care Provider 09/12/21 01/18/24 Nadja Hagen MD 2312 S [facility] Floor 2, [address] [place] [address] Resident Psychiatry 04/01/22 05/13/24 Batool Atkinson, PhD LP [address] [place] [address] [address]282 [place] [address] Psychologist Licensed Mental Health 04/01/22 Prisca Miller MD 516 [facility] 295 [place] [address] Resident Neurology 02/10/23 Jennyfer Steele APRN BILLET SAWYER [address] [place], [place] 86[address]75 [place] [address] Nurse Practitioner Psychiatry 02/23/23 Jennyfer Steele APRN BILLET SAWYER [address] [place], [place] 86[address] [place] [address] Assigned Behavioral Health Provider 06/30/23 Sadaf Apple NP Assigned PCP 07/21/23 09/18/23 [facility] [address] [place] [address] Assigned PCP 09/19/23 Yamel Saha PA-C 420 [facility] 480 [place], [place] 179125 Assigned Cancer Care Provider 01/19/24 04/19/24 Luna Simons MD 420 [facility] 480 [place], [place] 342255 Assigned Cancer Care Provider 04/20/24 documented as of this encounter
--- OUTSIDE RECORDS SUMMARY | 2024-10-15 18:42 | XMS_ITS | Encounter Summary ---
Author Organization [facility] Address [address] [place] [address] Care Team Providers Care Chest Painting And Sealing Supervisor Name Role Phone Cyndie Eisenberg NP Primary Care Provider + Rodney Natarajan MD Unavailable [phone] Luna Simons MD Unavailable [phone] Caroline Duque RN Unavailable [phone] Martha White MD Unavailable Pedrito Ramirez MD Unavailable +[phone] Rodney Natarajan MD Unavailable +[phone] Luna Simons MD Unavailable Martha White MD Unavailable Mio Mclean MD Unavailable +[phone] Ankita Park MD Unavailable [phone] Ankita Park MD Unavailable +[phone] Mio Mclean MD Unavailable [phone] Luna Simons MD Unavailable +[phone] Luna Simons MD Unavailable Jose Zaragoza NP Unavailable Mio Mclean MD Unavailable +[phone] Luna Simons MD Unavailable +[phone] Nadja Hagen MD Unavailable +[phone] Batool Atkinson PhD LP Unavailable [phone] Prisca Miller MD Unavailable +[phone] Jennyfer Steele ACCOUNTANT MACHINE PROCESSING WOOD FLOORING SPECIALIST Unavailable + IvetteJennyfer APRN WOOD FLOORING SPECIALIST Unavailable + Sadaf Apple NP Unavailable Unavailable Clinic - [facility] Unavailabl e Yamel Saha PA-C Unavailable +[phone] Luna Simons MD Unavailable +[phone] Encounter Details Date Type Department Care Team (Late st Contact Info) Description 10/07/2019 MyC Medical Advice [facility] [address] [place] [address] Nena Sebastian PA-C 420 [facility] [address] [place] [address] Social History Tobacco Use Types [...] Procedure [facility] [place] 909 [facility] 2nd [place] [address] Luna Simons MD 420 [facility] 480 [place] [address] 09/15/2025 10:00 AM CDT Oncology Visit [facility] [address] [place] [phone] Luna Simons MD 420 [facility] 480 [place] [address] documented as of this encounter Visit Diagnoses Not on filedocumented in this encounter Additional Health Concerns Infection Onset Date Last Indicated Resolved Time Rule Out COVID-19 01/24/2023 01/24/2023 01/24/2023 10:32 PM CDT documented as of this encounter Care Teams Chest Painting And Sealing Supervisor Relationship Specialty Start Date End Date Cyndie Eisenberg ASSISTANT PROFESSOR OF LIFE SCIENCES [address] [place] [address] PCP - General 09/25/19 Rodney Natarajan MD 420 [facility] 195 [place] [address] General Surgery 09/25/19 Luna Simons MD [address] [place] [address] 480 [place] [address] Hematology 09/25/19 Caroline Duque, RN Specialty Electronic Equipment Repairmen Breast Oncology 09/30/19 Martha White MD [address] [place] [address] [place], [place] 411244 signal repairer 11/01/19 Pedrito Ramirez MD [address] [place] [place] [address] Assigned Heart and Vascular Provider 03/20/20 11/07/20 Rodney Natarajan MD [address] [facility] 195 [place] [address] Assigned Surgical Provider 03/20/20 08/07/21 Luna Simons MD [address] [facility] 480 [place] [address] Assigned Cancer Care Provider 03/20/20 04/11/20 Martha White MD [address] [place] [address] [address] [place], [place] 182274 Assigned Behavioral Health Provider 03/20/20 05/02/20 Mio Mclean MD [address] [facility] 494 [place] [address] Assigned Cancer Care Provider 04/12/20 04/21/20 Ankita Park MD [address] [address] Assigned Behavioral Health Provider 05/03/20 06/29/23 Ankita Park MD [address] [phone] signal repairer 06/10/20 Mio Mclean MD [address] [facility] 494 [place] [address] Assigned Cancer Care Provider 05/10/20 07/25/20 Luna Simons MD [address] [facility] [address] [place] [address] Assigned Cancer Care Provider 04/22/20 05/09/20 Luna Simons MD 420 [facility] [address] [place], [place] 668085 Assigned Cancer Care Provider 07/26/20 06/26/21 Jose Zaragoza, ASSISTANT PROFESSOR OF LIFE SCIENCES 6405 [facility] [place] [address]885 Assigned Heart and Vascular Provider 11/08/20 02/04/22 Mio Mclean MD 420 [facility] [address] [place], [place] 737225 Assigned Cancer Care Provider 06/27/21 09/11/21 Luna Simons MD 420 [facility] 480 [place], [place] 223465 Assigned Cancer Care Provider 09/12/21 01/18/24 Nadja Hagen MD [facility] S [facility] Floor 2, [address] [place], [place] [address] Resident Psychiatry 04/01/22 05/13/24 Batool Atkinson, PhD LP [address] [place] [address] [address] [place], [place] 159064 Psychologist Licensed Mental Health 04/01/22 Prisca Miller MD 6 [facility] 295 [place], [place] 875715 Resident Neurology 02/10/23 Jennyfer Steele, ACCOUNTANT MACHINE PROCESSING WOOD FLOORING SPECIALIST [address] [place], [place] 9[address] Nurse Practitioner Psychiatry 02/23/23 Jennyfer Steele APRN WOOD FLOORING SPECIALIST [address] [place] [id number] [place], [place] 858694 Assigned Behavioral Health Provider 06/30/23 Sadaf Apple NP Assigned PCP 07/21/23 09/18/23 [facility] [id number] [place] [address] Assigned PCP 09/19/23 Yamel Saha PA-C [address] 21[address] Assigned Cancer Care Provider 01/19/24 04/19/24 Luna Simons MD [address] 809245 Assigned Cancer Care Provider 04/20/24 documented as of this encounter
--- OUTSIDE RECORDS SUMMARY | 2024-10-15 18:42 | XMS_ITS | Encounter Summary ---
Author Organization [facility] Address [address] [place] [address] Care Team Providers Care Plastic Bubble Packer Name Role Phone Cyndie Eisenberg NP Primary Care Provider + Rodney Natarajan MD Unavailable [phone] Luna Simons MD Unavailable Caroline Duque RN Unavailable [phone] Martha White MD Unavailable Pedrito Ramirez MD Unavailable Rodney Natarajan MD Unavailable [phone] Luna Simons MD Unavailable Martha White MD Unavailable Mio Mclean MD Unavailable [phone] Ankita Park MD Unavailable [phone] Ankita Park MD Unavailable [phone] Mio Mclean MD Unavailable Luna Simons MD Unavailable [phone] Luna Simons MD Unavailable Jose Zaragoza NP Unavailable [phone] Mio Mclean MD Unavailable [phone] Luna Simons MD Unavailable [phone] Nadja Hagen MD Unavailable [phone] Batool Atkinson PhD LP Unavailable [phone] Prisca Miller MD Unavailable [phone] Jennyfer Steele SOLE CEMENTER ALARM INSTALLATION TECHNICIAN Unavailable + IvetteJennyfer APRN ALARM INSTALLATION TECHNICIAN Unavailable + Sadaf Apple NP Unavailable Unavailable Clinic - [facility] Unavailabl e Yamel Saha PA-C Unavailable [phone] Luna Simons MD Unavailable [phone] Encounter Details Date Type Department Care Team (Late st Contact Info) Description 12/03/2019 MyC Medical Advice [facility] [address] [place] [address] Luna Simons MD [address] [place] [address] Social History Tobacco Use Types Packs/Day [...] Description 09/15/2025 9:15 AM CDT Ancillary Procedure [facility] Imaging [place] [address] [place] [address] 2nd [place] [address] Luna Simons MD [address] [address] 09/15/2025 10:00 AM CDT Oncology Visit [facility] 909 [place] [phone] Luna Simons MD 420 [facility] 480 [place] [address] documented as of this encounter Visit Diagnoses Not on filedocumented in this encounter Additional Health Concerns Infection Onset Date Last Indicated Resolved Time Rule Out COVID-19 01/24/2023 01/24/2023 01/24/2023 10:32 PM CDT documented as of this encounter Care Teams Plastic Bubble Packer Relationship Specialty Start Date End Date Cyndie Eisenberg ROBOTIC TECHNICIAN [address] [place] [address] PCP - General 09/25/19 Rodney Natarajan MD 420 [facility] 195 [place] [address] General Surgery 09/25/19 Luna Simons MD [address] [place] [address] 480 [place] [address] Hematology 09/25/19 Caroline Duque, RN Specialty Facilities Maintenance Manager Breast Oncology 09/30/19 Martha White MD [address] [place] [address] [place], [place] [address]3974 graduate student 11/01/19 Pedrito Ramirez MD [address] [place] [place] [address] Assigned Heart and Vascular Provider 03/20/20 11/07/20 Rodney Natarajan MD [address] [facility] 195 [place] [address] Assigned Surgical Provider 03/20/20 08/07/21 Luna Simons MD [address] [facility] 480 [place] [address] Assigned Cancer Care Provider 03/20/20 04/11/20 Martha White MD [address] [place] [address] [address] [place], [place] 869864 Assigned Behavioral Health Provider 03/20/20 05/02/20 Mio Mclean MD [address] [facility] 494 [place] [address] Assigned Cancer Care Provider 04/12/20 04/21/20 Ankita Park MD [address] [address] Assigned Behavioral Health Provider 05/03/20 06/29/23 Ankita Park MD [address] [phone] graduate student 06/10/20 Mio Mclean MD [address] [facility] [address] [place] [address] Assigned Cancer Care Provider 05/10/20 07/25/20 Luna Simons MD [address] [facility] [address] [facility] [address] [place] [address] Assigned Cancer Care Provider 04/22/20 05/09/20 Luna Simons MD 420 [facility] [address] [place], [place] 9[address]325 Assigned Cancer Care Provider 07/26/20 06/26/21 Jose Zaragoza, ROBOTIC TECHNICIAN 6405 [facility] [place] 59[address]05 Assigned Heart and Vascular Provider 11/08/20 02/04/22 Mio Mclean MD 420 [facility] [address] [place], [place] 722095 Assigned Cancer Care Provider 06/27/21 09/11/21 Luna Simons MD 420 [facility] [address] [place], [place] 781925 Assigned Cancer Care Provider 09/12/21 01/18/24 Nadja Hagen MD [facility]2 S [facility] Floor 2, [address] [place], [place] 09[address] Resident Psychiatry 04/01/22 05/13/24 Batool Atkinson, PhD LP [address] [place] [address] [address] [place], [place] 535844 Psychologist Licensed Mental Health 04/01/22 Prisca Miller MD 6 [facility] 295 [place], [place] 972855 Resident Neurology 02/10/23 Jennyfer Steele, SOLE CEMENTER ALARM INSTALLATION TECHNICIAN [address] [place], [place] 2[address]24 Nurse Practitioner Psychiatry 02/23/23 Jennyfer Steele APRN ALARM INSTALLATION TECHNICIAN [address] [place] 4100775 [place], [place] 471704 Assigned Behavioral Health Provider 06/30/23 Sadaf Apple NP Assigned PCP 07/21/23 09/18/23 [facility] [address] [place] [address] Assigned PCP 09/19/23 Yamel Saha PA-C [address] 977945 Assigned Cancer Care Provider 01/19/24 04/19/24 Luna Simons MD [address] 832085 Assigned Cancer Care Provider 04/20/24 documented as of this encounter
--- OUTSIDE RECORDS SUMMARY | 2024-10-15 18:42 | XMS_ITS | Encounter Summary ---
Author Organization [facility] Address [address] [place] [address] Care Team Providers Care Bank Officer Name Role Phone Cyndie Eisenberg NP Primary Care Provider + Rodney Natarajan MD Unavailable [phone] Luna Simons MD Unavailable Caroline Duque RN Unavailable [phone] Martha White MD Unavailable [phone] Pedrito Ramirez MD Unavailable [phone] Rodney Natarajan MD Unavailable [phone] Luna Simons MD Unavailable Martha White MD Unavailable Mio Mclean MD Unavailable [phone] Ankita Park MD Unavailable [phone] Ankita Park MD Unavailable [phone] Mio Mclean MD Unavailable [phone] Luna Simons MD Unavailable Luna Simons MD Unavailable Jose Zaragoza NP Unavailable [phone] Mio Mclean MD Unavailable [phone] Luna Simons MD Unavailable [phone] Nadja Hagen MD Unavailable [phone] Batool Atkinson PhD LP Unavailable [phone] Prisca Miller MD Unavailable [phone] Ramin Steelen Ravi KEVIN LIBRARY HISTORIAN Unavailable + Jennyfer Steele APRN LIBRARY HISTORIAN Unavailable + Sadaf Apple NP Unavailable Unavailable Clinic - [facility] Unavailabl e Yamel Saha PA-C Unavailable [phone] Luna Simons MD Unavailable [phone] Encounter Details Date Type Department Care Team (Late st Contact Info) Description 12/03/2019 MyC Medical Advice [facility] [address] [place] [address] Caroline Duque, RN Social History Tobacco [...] [facility] Imaging [address] 2nd [place] [address] Luna Simons MD [address] [place] [address] 09/15/2025 10:00 AM CDT Oncology Visit [facility] 909 [place] [phone] Luna Simons MD [address] 784[address] documented as of this encounter Visit Diagnoses Not on filedocumented in this encounter Additional Health Concerns Infection Onset Date Last Indicated Resolved Time Rule Out COVID-19 01/24/2023 01/24/2023 01/24/2023 10:32 PM CDT documented as of this encounter Care Teams Bank Officer Relationship Specialty Start Date End Date Cyndie Eisenberg NP [address] [place] [address] PCP - General 09/25/19 Rodney Natarajan MD [address] [place] [address] 961455 General Surgery 09/25/19 Luna Simons MD [address] [place] [address] 773485 Hematology 09/25/19 Caroline Duque, RN Specialty Marketing Professional Breast Oncology 09/30/19 Martha White MD [address] [place] [address] [address] [place] [address] actuary clerk 11/01/19 Pedrito Ramirez MD [address] [facility] [address] [place] [address] Assigned Heart and Vascular Provider 03/20/20 11/07/20 Rodney Natarajan MD [address] [place] [address] Assigned Surgical Provider 03/20/20 08/07/21 Luna Simons MD 420 [facility] 480 [place] [address] Assigned Cancer Care Provider 03/20/20 04/11/20 Martha White MD [address] [place] [address] [address] [place] [address] Assigned Behavioral Health Provider 03/20/20 05/02/20 Mio Mclean MD 420 [facility] 494 [place] [address] Assigned Cancer Care Provider 04/12/20 04/21/20 Ankita Park MD [address] [place] [phone] Assigned Behavioral Health Provider 05/03/20 06/29/23 Ankita Park MD [address] [place] [phone] actuary clerk 06/10/20 Mio Mclean MD 420 [facility] 494 [place] [address] Assigned Cancer Care Provider 05/10/20 07/25/20 Luna Simons MD 420 [facility] 480 [place] [address] Assigned Cancer Care Provider 04/22/20 05/09/20 Luna Simons MD 420 [facility] [address] [place] [address] Assigned Cancer Care Provider 07/26/20 06/26/21 Jose Zaragoza, BOAT CANVAS MAKER AND INSTALLER 6405 [facility] [place] 55[address]95 Assigned Heart and Vascular Provider 11/08/20 02/04/22 Mio Mclean MD 420 [facility] 494 [place], [place] 912155 Assigned Cancer Care Provider 06/27/21 09/11/21 Luna Simons MD 420 [facility] 480 [place], [place] 383585 Assigned Cancer Care Provider 09/12/21 01/18/24 Nadja Hagen MD 2312 S [facility] Floor 2, [address] [place], [place] 30[address]24 Resident Psychiatry 04/01/22 05/13/24 Batolo Atkinson, PhD LP 2450 [facility] [address] [place], [place] 236[address] Psychologist Licensed Mental Health 04/01/22 Prisca Miller MD 516 [facility] 295 [place], [place] 276585 Resident Neurology 02/10/23 Jennyfer Steele APRN LIBRARY HISTORIAN [address], [address] [place] [address] Nurse Practitioner Psychiatry 02/23/23 Jennyfer Steele APRN LIBRARY HISTORIAN [address] [place] [address] Assigned Behavioral Health Provider 06/30/23 Sadaf Apple NP Assigned PCP 07/21/23 09/18/23 [facility] [address] [place] [address] Assigned PCP 09/19/23 Yamel Saha PA-C [address] [address] Assigned Cancer Care Provider 01/19/24 04/19/24 Luna Simons MD [address] 79247455 Assigned Cancer Care Provider 04/20/24 documented as of this encounter
--- OUTSIDE RECORDS SUMMARY | 2024-10-15 18:42 | XMS_ITS | Encounter Summary ---
Author Organization [facility] Address [address] [place] [address] Care Team Providers Care Turfgrass Management Professor Name Role Phone Cyndie Eisenberg NP Primary Care Provider + Rodney Natarajan MD Unavailable [phone] Luna Simons MD Unavailable Caroline Duque RN Unavailable [phone] Martha White MD Unavailable Pedrito Ramirez MD Unavailable [phone] Rodney Natarajan MD Unavailable [phone] Luna Simons MD Unavailable [phone] Martha White MD Unavailable Mio Mclean MD Unavailable [phone] Ankita Park MD Unavailable [phone] Ankita Park MD Unavailable [phone] Mio Mclean MD Unavailable [phone] Luna Simons MD Unavailable Luna Simons MD Unavailable Jose Zaragoza NP Unavailable Mio Mclean MD Unavailable [phone] Luna Simons MD Unavailable [phone] Nadja Hagen MD Unavailable +[phone] Batool Atkinson PhD LP Unavailable [phone] Prisca Miller MD Unavailable +[phone] Jennyfer Steele CANAL TENDER MEDICATION ADMINISTRATION PROFESSIONAL Unavailable + Ivette Jennyferjulieth Rodrigues APRN MEDICATION ADMINISTRATION PROFESSIONAL Unavailable + Sadaf Apple NP Unavailable Unavailable [facility] Unavailabl e Yamel Saha PA-C Unavailable +[phone] Luna Simons MD Unavailable +[phone] Encounter Details Date Type Department Care Team (Late st Contact Info) Description 12/17/2019 MyC Medical Advice [facility] [address] [address] Rodney Natarajan MD [address] [place] [address] 195 [place] [address] Social History Tobacco Use Types [...] AM CDT Ancillary Procedure [facility] [place] 909 [facility] 2nd [place] [address] Luna Simons MD 420 [facility] 480 [place] [address] 09/15/2025 10:00 AM CDT Oncology Visit [facility] 909 [facility] [place] [address] Luna Simons MD 420 [facility] 480 [place], [place] 731795 documented as of this encounter Visit Diagnoses Not on filedocumented in this encounter Additional Health Concerns Infection Onset Date Last Indicated Resolved Time Rule Out COVID-19 01/24/2023 01/24/2023 01/24/2023 10:32 PM CDT documented as of this encounter Care Teams Turfgrass Management Professor Relationship Specialty Start Date End Date Cyndie Eisenberg CALL WORKER PERSON [address] [place] [address] PCP - General 09/25/19 Rodney Natarajan MD [address] [place] [address] 195 [place], [place] [address] General Surgery 09/25/19 Luna Simons MD [address] [place] [address] 480 [place], [place] 532[address] Hematology 09/25/19 Caroline Duque, RN Specialty Diesel Service Technician Breast Oncology 09/30/19 Martha White MD [address] [place] [address] [place] [address] primer waterproofing machine operator 11/01/19 Pedrito Ramirez MD [address] [place] [place] [address] Assigned Heart and Vascular Provider 03/20/20 11/07/20 Rodney Natarajan MD [address] [facility] 195 [place] [address] Assigned Surgical Provider 03/20/20 08/07/21 Luna Simons MD [address] [facility] 480 [place] [address] Assigned Cancer Care Provider 03/20/20 04/11/20 Martha White MD [address] [place] [address] [address] [place], [place] 400634 Assigned Behavioral Health Provider 03/20/20 05/02/20 Mio Mclean MD [address] [facility] 494 [place] [address] Assigned Cancer Care Provider 04/12/20 04/21/20 Ankita Park MD [facility] [address] [address] Assigned Behavioral Health Provider 05/03/20 06/29/23 Ankita Park MD [facility] [address] [phone] primer waterproofing machine operator 06/10/20 Mio Mclean MD [address] [facility] 494 [place] [address] Assigned Cancer Care Provider 05/10/20 07/25/20 Luna Simons MD [address] [facility] 480 [place] [address] Assigned Cancer Care Provider 04/22/20 05/09/20 Luna Simons MD 420 [facility] 480 [place] [address] Assigned Cancer Care Provider 07/26/20 06/26/21 Jose Zaragoza, CALL WORKER PERSON 6405 [facility] [place] 9[address]25 Assigned Heart and Vascular Provider 11/08/20 02/04/22 Mio Mclean MD 420 [facility] 494 [place], [place] 931675 Assigned Cancer Care Provider 06/27/21 09/11/21 Luna Simons MD 420 [facility] 480 [place], [place] 6[address]35 Assigned Cancer Care Provider 09/12/21 01/18/24 Nadja Hagen MD [facility]2 S [facility] Floor 2, [address] [place], [place] 7[address] Resident Psychiatry 04/01/22 05/13/24 Batool Atkinson, PhD LP [address] [place] [address] [address] [place], [place] 74[address]94 Psychologist Licensed Mental Health 04/01/22 Prisca Miller MD 516 [facility] 295 [place], [place] 889745 Resident Neurology 02/10/23 Jennyfer Steele APRN MEDICATION ADMINISTRATION PROFESSIONAL [address] [place] [address] [place], [place] [address] Nurse Practitioner Psychiatry 02/23/23 Jennyfer Steele APRN MEDICATION ADMINISTRATION PROFESSIONAL [address] [place] [address] [address] [place] [address] Assigned Behavioral Health Provider 06/30/23 Sadaf Apple NP Assigned PCP 07/21/23 09/18/23 [facility] [address] [place] [address] Assigned PCP 09/19/23 Yaeml Saha PA-C [address] [place] [address] 658685 Assigned Cancer Care Provider 01/19/24 04/19/24 Luna Simons MD [address] 0344[address] Assigned Cancer Care Provider 04/20/24 documented as of this encounter
--- OUTSIDE RECORDS SUMMARY | 2024-10-15 18:43 | XMS_ITS | Encounter Summary ---
Author Organization [facility] Address [address] [place] [address] Care Team Providers Care Playground Equipment Erector Name Role Phone Cyndie Eisenberg NP Primary Care Provider + Rodney Natarajan MD Unavailable Luna Simons MD Unavailable Caroline Duque RN Unavailable +[phone] Martha White MD Unavailable Pedrito Ramirez MD Unavailable +[phone] Rodney Natarajan MD Unavailable +[phone] Luna Simons MD Unavailable Martha White MD Unavailable +[phone] Mio Mclean MD Unavailable +[phone] Ankita Park MD Unavailable +[phone] Ankita Park MD Unavailable [phone] Mio Mclean MD Unavailable +[phone] Luna Simons MD Unavailable Luna Simons MD Unavailable Jose Zaragoza NP Unavailable Mio Mclean MD Unavailable +[phone] Luna Simons MD Unavailable +[phone] Nadja Hagen MD Unavailable +[phone] Batool Atkinson PhD LP Unavailable +[phone] Prisca Miller MD Unavailable +[phone] Jennyfer Steele CRYSTAL FINISHER AUTOMOTIVE PARTS INTERPRETER Unavailable + IvetteJennyfer APRN AUTOMOTIVE PARTS INTERPRETER Unavailable + Sadaf Apple NP Unavailable Unavailable Clinic - [facility] Unavailabl e Yamel Saha PA-C Unavailable +[phone] Luna Simons MD Unavailable [phone] Encounter Details Date Type Department Care Team (Late st Contact Info) Description 12/31/2019 MyC Medical Advice [facility] [address] [place] [address] Luna Simons MD [address] [place] [address] Social History Tobacco Use Types Packs/Day [...] Procedure [facility] Breast Center Imaging [place] [address] [place] [address] 2nd [place] [address] Luna Simons MD [address] [address] 09/15/2025 10:00 AM CDT Oncology Visit [facility] 9[address] [place] [phone] Luna [place]ons MD 420 [facility] 480 [place] [address] documented as of this encounter Visit Diagnoses Not on filedocumented in this encounter Additional Health Concerns Infection Onset Date Last Indicated Resolved Time Rule Out COVID-19 01/24/2023 01/24/2023 01/24/2023 10:32 PM CDT documented as of this encounter Care Teams Playground Equipment Erector Relationship Specialty Start Date End Date Cyndie Eisenberg JOURNEYMAN PRESSMAN [address] [place] [address] PCP - General 09/25/19 Rodney Natarajan MD 420 [facility] 195 [place] [address] General Surgery 09/25/19 Luna Simons MD [address] [place] [address] 480 [place] [address] Hematology 09/25/19 Caroline Duque, RN Specialty Help Desk Support Breast Oncology 09/30/19 Martha White MD [address] [place], [place] 4[address]64 aerospace engineer officer armament 11/01/19 Pedrito Ramirez MD [address] [place] [address] Assigned Heart and Vascular Provider 03/20/20 11/07/20 Rodney Natarajan MD [address] [facility] 195 [place] [address] Assigned Surgical Provider 03/20/20 08/07/21 Luna Simons MD [address] [facility] 480 [place] [address] Assigned Cancer Care Provider 03/20/20 04/11/20 Martha White MD [address] [place] [address] [address] [place], [place] 089064 Assigned Behavioral Health Provider 03/20/20 05/02/20 Mio Mclean MD [address] [facility] 494 [place] [address] Assigned Cancer Care Provider 04/12/20 04/21/20 Ankita Park MD [address] [address] Assigned Behavioral Health Provider 05/03/20 06/29/23 Ankita Park MD [address] [phone] aerospace engineer officer armament 06/10/20 Mio Mclean MD [address] [facility] 494 [place] [address] Assigned Cancer Care Provider 05/10/20 07/25/20 Luan Simons MD [address] [facility] 480 [place] [address] Assigned Cancer Care Provider 04/22/20 05/09/20 Luna [place]ons MD 420 [facility] 480 [place], [place] 265745 Assigned Cancer Care Provider 07/26/20 06/26/21 Jose Zaragoza, JOURNEYMAN PRESSMAN 6405 [facility] [place] [address] Assigned Heart and Vascular Provider 11/08/20 02/04/22 Mio Mclean MD 420 [facility] 494 [place], [place] 923435 Assigned Cancer Care Provider 06/27/21 09/11/21 Luna Simons MD 420 [facility] 480 [place], [place] 897505 Assigned Cancer Care Provider 09/12/21 01/18/24 Nadja Hagen MD [facility] Floor 2, [address] [place], [place] 543474 Resident Psychiatry 04/01/22 05/13/24 Batool Atkinson, PhD LP [address] [place] [address] [address] [place], [place] 7[address]454 Psychologist Licensed Mental Health 04/01/22 Prisca Miller MD 6 [facility] 295 [place], [place] 150925 Resident Neurology 02/10/23 Jennyfer Steele, CRYSTAL FINISHER AUTOMOTIVE PARTS INTERPRETER [address] [place], [place] 617364 Nurse Practitioner Psychiatry 02/23/23 Jennyfer Steele APRN AUTOMOTIVE PARTS INTERPRETER [address] [id number] [place], [place] 737984 Assigned Behavioral Health Provider 06/30/23 Sadaf Apple NP Assigned PCP 07/21/23 09/18/23 [facility] [address] [place] [address] Assigned PCP 09/19/23 Yamel Saha PA-C [address] 941285 Assigned Cancer Care Provider 01/19/24 04/19/24 Luna Simons MD [address] 865875 Assigned Cancer Care Provider 04/20/24 documented as of this encounter
--- OUTSIDE RECORDS SUMMARY | 2024-10-15 18:43 | XMS_ITS | Encounter Summary ---
Author Organization [facility] Address [address] [place] [address] Care Team Providers Care Powertrain Control Systems Engineer Name Role Phone Cyndie Eisenberg NP Primary Care Provider + Rodney Natarajan MD Unavailable [phone] Luna [place]ons MD Unavailable Caroline Duque RN Unavailable [phone] Martha White MD Unavailable Pedrito Ramirez MD Unavailable [phone] Rodney Natarajan MD Unavailable +[phone] Luna Simons MD Unavailable [phone] Martha White MD Unavailable [phone] Mio Mclean MD Unavailable [phone] Ankita Park MD Unavailable [phone] Ankita Park MD Unavailable [phone] Mio Mclean MD Unavailable [phone] Luna Simons MD Unavailable Luna Simons MD Unavailable Jose Zaragoza NP Unavailable Mio Mclean MD Unavailable [phone] Luna [place]ons MD Unavailable [phone] Nadja Hagen MD Unavailable +[phone] Batool Atkinson PhD LP Unavailable [phone] Prisca Miller MD Unavailable +[phone] Jennyfer Steele INVENTORY CONTROL COORDINATOR VALVE INSPECTOR Unavailable + IvetteJennyfer APRN VALVE INSPECTOR Unavailable + Sadaf Apple NP Unavailable Unavailable Clinic - [facility] [[email or web address] Unavailabl e Yamel Saha PA-C Unavailable +[phone] Luna Simons MD Unavailable [phone] Encounter Details Date Type Department Care Team (Late st Contact Info) Description 09/30/2019 MyC Medical Advice [facility] [address] [place] [address] Luna Simons MD [address] [place] [address] Social History Tobacco Use Types Packs/Day [...] Description 09/15/2025 9:15 AM CDT Ancillary Procedure [facility] Breast Center Imaging [place] [address] [place] [address] 2nd [place] [address] Luna Simons MD [address] [place] [address] 09/15/2025 10:00 AM CDT Oncology Visit [facility] 909 [place] [phone] Luna Simons MD 420 [facility] 480 [place] [address] documented as of this encounter Visit Diagnoses Not on filedocumented in this encounter Additional Health Concerns Infection Onset Date Last Indicated Resolved Time Rule Out COVID-19 01/24/2023 01/24/2023 01/24/2023 10:32 PM CDT documented as of this encounter Care Teams Powertrain Control Systems Engineer Relationship Specialty Start Date End Date Cyndie Eisenberg LEAD INFRASTRUCTURE ARCHITECT [address] [place] [address] PCP - General 09/25/19 Rodney Natarajan MD 420 [facility] 195 [place] [address] General Surgery 09/25/19 Luna Simons MD [address] [place] [address] 480 [place] [address] Hematology 09/25/19 Caroline Duque, RN Specialty Security Technician Breast Oncology 09/30/19 Martha White MD [address] [place] [place], [place] [address] distillation operator helper 11/01/19 Pedrito Ramirez MD [address] [place] [address] Assigned Heart and Vascular Provider 03/20/20 11/07/20 Rodney Natarajan MD [address] 195 [place] [address] Assigned Surgical Provider 03/20/20 08/07/21 Luna Simons MD [address] [facility] 480 [place] [address] Assigned Cancer Care Provider 03/20/20 04/11/20 Martha White MD [address] [place] [address] [address] [place] 123124 Assigned Behavioral Health Provider 03/20/20 05/02/20 Mio Mclean MD [address] [facility] 494 [place] [address] Assigned Cancer Care Provider 04/12/20 04/21/20 Ankita Park MD [address] [address] Assigned Behavioral Health Provider 05/03/20 06/29/23 Ankita Park MD [address] [phone] distillation operator helper 06/10/20 Mio Mclean MD [address] [address] [facility] 494 [place] [address] Assigned Cancer Care Provider 05/10/20 07/25/20 Luna Simons MD [address] [address] [facility] 480 [place] [address] Assigned Cancer Care Provider 04/22/20 05/09/20 Luna Simons MD 420 [facility] 480 [place], [place] 220075 Assigned Cancer Care Provider 07/26/20 06/26/21 Jose Zaragoza, LEAD INFRASTRUCTURE ARCHITECT 6405 [facility] [place] [place] [address] Assigned Heart and Vascular Provider 11/08/20 02/04/22 Mio Mclean MD 420 [facility] 494 [place], [place] [address]255 Assigned Cancer Care Provider 06/27/21 09/11/21 Luna Simons MD 420 [facility] 480 [place], [place] 692565 Assigned Cancer Care Provider 09/12/21 01/18/24 Nadja Hagen MD [facility] S [facility] Floor 2, [address] [place], [place] 45[address]64 Resident Psychiatry 04/01/22 05/13/24 Batool Atkinson, PhD LP [address] [place] [address] [address] [place], [place] 820744 Psychologist Licensed Mental Health 04/01/22 Prisca Miller MD 6 [facility] 295 [place], [place] [address] Resident Neurology 02/10/23 Jennyfer Steele, INVENTORY CONTROL COORDINATOR VALVE INSPECTOR [address] [place], [place] [address]64 Nurse Practitioner Psychiatry 02/23/23 Jennyfer Steele APRN VALVE INSPECTOR [address] 2659075 [place], [place] 377404 Assigned Behavioral Health Provider 06/30/23 Sadaf Apple NP Assigned PCP 07/21/23 09/18/23 [facility] [address] [place] [address] Assigned PCP 09/19/23 Yamel Saha PA-C [address] [address] Assigned Cancer Care Provider 01/19/24 04/19/24 Luna Simons MD [address] 145[address] Assigned Cancer Care Provider 04/20/24 documented as of this encounter
--- OUTSIDE RECORDS SUMMARY | 2024-10-15 18:43 | XMS_ITS | Encounter Summary ---
Author Organization [facility] Address [address] [place] [address] Care Team Providers Care Service Delivery Director Name Role Phone Cyndie Eisenberg NP Primary Care Provider + Rodney Natarajan MD Unavailable [phone] Luna Simons MD Unavailable [phone] Carolnie Duque RN Unavailable [phone] Martha White MD Unavailable [phone] Pedrito Ramirez MD Unavailable [phone] Rodney Natarajan MD Unavailable [phone] Luna Simons MD Unavailable +[phone] Martha White MD Unavailable Mio Mclean MD Unavailable [phone] Ankita Park MD Unavailable [phone] Ankita Park MD Unavailable [phone] Mio Mclean MD Unavailable [phone] Luna Simons MD Unavailable +[phone] Luna Simons MD Unavailable +[phone] Jose Zaragoza NP Unavailable Mio Mclean MD Unavailable [phone] Luna Simons MD Unavailable +[phone] Nadja Haegn MD Unavailable [phone] Batool Atkinson PhD LP Unavailable [phone] Prisca Miller MD Unavailable +[phone] Ramin Steelen Ravi STUDENT RECORDS COORDINATOR TRESTLE MAINTERNANCE LABORER Unavailable + IvetteJennyfer vaughan APRN TRESTLE MAINTERNANCE LABORER Unavailable + Sadaf Apple NP Unavailable Unavailable Clinic - [facility] Unavailabl e Yamel Saha PA-C Unavailable +[phone] Luna Simons MD Unavailable +[phone] Encounter Details Date Type Department Care Team (Late st Contact Info) Description 01/06/2020 MyC Medical Advice [facility] 9 [place] [address] Sophie Sen Social History Tobacco [...] Procedure [facility] Breast Center Imaging [place] 9[address] [facility] [address] [place] [address] Luna [place]ons MD 420 [facility] 480 [place] [address] 09/15/2025 10:00 AM CDT Oncology Visit [facility] 909 [facility] [place] [address] Luna Simons MD 420 [facility] 480 [place], [place] 961585 documented as of this encounter Visit Diagnoses Not on filedocumented in this encounter Additional Health Concerns Infection Onset Date Last Indicated Resolved Time Rule Out COVID-19 01/24/2023 01/24/2023 01/24/2023 10:32 PM CDT documented as of this encounter Care Teams Service Delivery Director Relationship Specialty Start Date End Date Cyndie Eisenberg ASSEMBLER [employer]ESCENT [employer]S [address] [place] [address] PCP - General 09/25/19 Rodney Natarajan MD [address] [place] [address] 195 [place], [place] 290965 General Surgery 09/25/19 Luna Simons MD [address] [place] [address] 480 [place], [place] 813435 Hematology 09/25/19 Caroline Duque, RN Specialty Corn Cutter Operator Breast Oncology 09/30/19 Martha White MD [address] [place] [place] [address] electronic equipment installer 11/01/19 Pedrito Ramirez MD [address] [place] [address] Assigned Heart and Vascular Provider 03/20/20 11/07/20 Rodney Natarajan MD [address] [address] [facility] 195 [place] [address] Assigned Surgical Provider 03/20/20 08/07/21 Luna Simons MD [address] [facility] 480 [place] [address] Assigned Cancer Care Provider 03/20/20 04/11/20 Martha White MD [address] [place] [address] [address] [place], [place] 129344 Assigned Behavioral Health Provider 03/20/20 05/02/20 Mio Mclean MD [address] [facility] 494 [place] [address] Assigned Cancer Care Provider 04/12/20 04/21/20 Ankita Park MD [facility] [address] [address] Assigned Behavioral Health Provider 05/03/20 06/29/23 Ankita Park MD [facility] [address] [phone] electronic equipment installer 06/10/20 Mio Mclean MD [address] [facility] 494 [place] [address] Assigned Cancer Care Provider 05/10/20 07/25/20 Luna Simons MD [address] [facility] 480 [place] [address] Assigned Cancer Care Provider 04/22/20 05/09/20 Luna Simons MD 420 [facility] 480 [place] [address] Assigned Cancer Care Provider 07/26/20 06/26/21 Jose Zaragoza, ASSEMBLER FLUORESCENT LIGHTS 6405 [facility] [place] 44[address]55 Assigned Heart and Vascular Provider 11/08/20 02/04/22 Mio Mclean MD 420 [facility] 494 [place], [place] 732455 Assigned Cancer Care Provider 06/27/21 09/11/21 Luna Simons MD 420 [facility] 480 [place], [place] 781715 Assigned Cancer Care Provider 09/12/21 01/18/24 Nadja Hagen MD Former[facility] named [facility]2 S [facility] Floor 2, [address] [place], [place] [address] Resident Psychiatry 04/01/22 05/13/24 Batool Atkinson, PhD LP [address] [place] [address] [address] [place], [place] 833424 Psychologist Licensed Mental Health 04/01/22 Prisca Miller MD 516 [facility] 295 [place], [place] 8[address] Resident Neurology 02/10/23 Jennyfer Steele APRN TRESTLE MAINTERNANCE LABORER [address] [place], [place] 97[address] Nurse Practitioner Psychiatry 02/23/23 Jennyfer Steele APRN TRESTLE MAINTERNANCE LABORER [address] [place] [address] [address]275 [place] [address] Assigned Behavioral Health Provider 06/30/23 Sadaf Apple NP Assigned PCP 07/21/23 09/18/23 [facility] [address] [place] [address] Assigned PCP 09/19/23 Yamel Saha PA-C [address] [place] [address] 239145 Assigned Cancer Care Provider 01/19/24 04/19/24 Luna Simons MD [address] 988545 Assigned Cancer Care Provider 04/20/24 documented as of this encounter
--- OUTSIDE RECORDS SUMMARY | 2024-10-15 18:43 | XMS_ITS | Encounter Summary ---
Author Organization [facility] Address [address] [place] [address] Care Team Providers Care Customer Care Representative Name Role Phone Cyndie Eisenberg NP Primary Care Provider + Rodney Natarajan MD Unavailable [phone] Luna [place]ons MD Unavailable Caroline Duque RN Unavailable [phone] Martha White MD Unavailable [phone] Pedrito Ramirez MD Unavailable +[phone] Rodney Natarajan MD Unavailable +[phone] Luna Simons MD Unavailable Martha White MD Unavailable Mio Mclean MD Unavailable [phone] Ankita Park MD Unavailable [phone] Ankita Park MD Unavailable [phone] Mio Mclean MD Unavailable +[phone] Luna Simons MD Unavailable Luna Simons MD Unavailable +[phone] Jose Zaragoza NP Unavailable Mio Mclean MD Unavailable [phone] Luna Simons MD Unavailable +[phone] Nadja Hagen MD Unavailable [phone] Batool Atkinson PhD LP Unavailable [phone] Prisca Miller MD Unavailable +[phone] Jennyfer Steele DIETITIAN RESEARCH SLIP MIXER Unavailable + IvetteJennyfer APRN SLIP MIXER Unavailable + Sadaf Apple NP Unavailable Unavailable Clinic - [facility] Unavailabl e Yamel Saha PA-C Unavailable +[phone] Luna Simons MD Unavailable +[phone] Encounter Details Date Type Department Care Team (Late st Contact Info) Description 10/22/2019 MyC Medical Advice [facility] [address] [place] [address] Luna [place]ons MD [address] [place] [address] Social History Tobacco Use Types Packs/Day [...] Ancillary Procedure [facility] Breast Center Imaging [place] [address] [place] [address] 2nd [place] [address] Luna Simons MD [address] [place] [address] 09/15/2025 10:00 AM CDT Oncology Visit [facility] 909 [place] [phone] Luna [place]ons MD 420 [facility] 480 [place] [address] documented as of this encounter Visit Diagnoses Not on filedocumented in this encounter Additional Health Concerns Infection Onset Date Last Indicated Resolved Time Rule Out COVID-19 01/24/2023 01/24/2023 01/24/2023 10:32 PM CDT documented as of this encounter Care Teams Customer Care Representative Relationship Specialty Start Date End Date Cyndie Eisenberg BIZTALK CONSULTANT [address] [place] [address] PCP - General 09/25/19 Rodney Natarajan MD 420 [facility] 195 [place] [address] General Surgery 09/25/19 Luna Simons MD [address] [place] [address] 480 [place] [address] Hematology 09/25/19 Caroline Duque, RN Specialty Card Brusher Breast Oncology 09/30/19 Martha White MD [address] [place], [place] 470854 leach runner 11/01/19 Pedrito Ramirez MD [address] [place] [address] Assigned Heart and Vascular Provider 03/20/20 11/07/20 Rodney Natarajan MD [address] [facility] 195 [place] [address] Assigned Surgical Provider 03/20/20 08/07/21 Luna Simons MD [address] [facility] 480 [place] [address] Assigned Cancer Care Provider 03/20/20 04/11/20 Martha White MD [address] [place] [address] [address] [place], [place] 639904 Assigned Behavioral Health Provider 03/20/20 05/02/20 Mio Mclean MD [address] [facility] 494 [place] [address] Assigned Cancer Care Provider 04/12/20 04/21/20 Ankita Park MD [address] [address] Assigned Behavioral Health Provider 05/03/20 06/29/23 Ankita Park MD [address] [phone] leach runner 06/10/20 Mio Mclean MD [address] [facility] 494 [place] [address] Assigned Cancer Care Provider 05/10/20 07/25/20 Luna Simons MD [address] [facility] 480 [place] [address] Assigned Cancer Care Provider 04/22/20 05/09/20 Luna [place]ons MD 420 [facility] 480 [place], [place] [address] Assigned Cancer Care Provider 07/26/20 06/26/21 Jose Zaragoza, BIZTALK CONSULTANT 6405 [facility] [place] [id number] Assigned Heart and Vascular Provider 11/08/20 02/04/22 Mio Mclean MD 420 [facility] 494 [place], [place] 8[address]85 Assigned Cancer Care Provider 06/27/21 09/11/21 Luna [place]ons MD 420 [facility] 480 [place], [place] 453105 Assigned Cancer Care Provider 09/12/21 01/18/24 Nadja Hagen MD [facility]2 S [facility] Floor 2, [address] [place], [place] 47[address]74 Resident Psychiatry 04/01/22 05/13/24 Batool Atkinson, PhD LP [address] [place] [address] [address] [place], [place] 778944 Psychologist Licensed Mental Health 04/01/22 Prisca Miller MD 6 [facility] 295 [place], [place] 6[address]165 Resident Neurology 02/10/23 Jennyfer Steele, DIETITIAN RESEARCH SLIP MIXER [address] [place], [place] [address] Nurse Practitioner Psychiatry 02/23/23 Jennyfer Steele APRN SLIP MIXER [address] 6542975 [place], [place] 250594 Assigned Behavioral Health Provider 06/30/23 Sadaf Apple NP Assigned PCP 07/21/23 09/18/23 [facility] [address] [place] [address] Assigned PCP 09/19/23 Yamel Saha PA-C [address] 392645 Assigned Cancer Care Provider 01/19/24 04/19/24 Luna [place]ons MD [address] 7314[address] Assigned Cancer Care Provider 04/20/24 documented as of this encounter
--- OUTSIDE RECORDS SUMMARY | 2024-10-15 18:43 | XMS_ITS | Encounter Summary ---
Author Organization [facility] Address [address] [place] [address] 18[address] Care Team Providers Care Mold Tooler Name Role Phone Cyndie Eisenberg NP Primary Care Provider + Rodney Natarajan MD Unavailable [phone] Luna Simons MD Unavailable +[phone] Caroline Duque RN Unavailable +[phone] Martha White MD Unavailable [phone] Pedrito Ramirez MD Unavailable +[phone] Rodney Natarajan MD Unavailable +[phone] Luna Simons MD Unavailable Martha White MD Unavailable Mio Mclean MD Unavailable +[phone] Ankita Park MD Unavailable +[phone] Ankita Park MD Unavailable +[phone] Mio Mclean MD Unavailable +[phone] Luna Simons MD Unavailable +[phone] Luna Simons MD Unavailable +[phone] Jose Zaragoza NP Unavailable Mio Mclean MD Unavailable +[phone] Luna Simons MD Unavailable +[phone] Nadja Hagen MD Unavailable +[phone] Batool Atkinson PhD LP Unavailable +[phone] Prisca Miller MD Unavailable +[phone] Ramin Steelen Ravi KEVIN CURTAIN ROLLER ASSEMBLER Unavailable + Jennyfer Steele APRN CURTAIN ROLLER ASSEMBLER Unavailable + Sadaf Apple NP Unavailable Unavailable Clinic - [facility] Unavailabl e Yamel Saha PA-C Unavailable +[phone] Luna Simons MD Unavailable +[phone] Encounter Details Date Type Department Care Team (Late st Contact Info) Description 10/31/2019 MyC Medical Advice [facility] [address] [place] [address] Caroline Duque, RN Social History Tobacco [...] Procedure [facility] Imaging [address] 2nd [place] [address] Luna Simons MD [address] [place] [address] 866345 09/15/2025 10:00 AM CDT Oncology Visit [facility] [address] [place] [phone] Luna Simons MD [address] [id number] documented as of this encounter Visit Diagnoses Not on filedocumented in this encounter Additional Health Concerns Infection Onset Date Last Indicated Resolved Time Rule Out COVID-19 01/24/2023 01/24/2023 01/24/2023 10:32 PM CDT documented as of this encounter Care Teams Mold Tooler Relationship Specialty Start Date End Date Cyndie Eisenberg NP [address] [place] [address] PCP - General 09/25/19 Rodney Natarajan MD [address] [place] [address] 819225 General Surgery 09/25/19 Luna Simons MD [address] [place] [address] 575875 Hematology 09/25/19 Caroline Duque, RN Specialty Nutrition Assistant Breast Oncology 09/30/19 Martha White MD [address] [place] [address] [address] [place] [address] precision printing worker 11/01/19 Pedrito Ramirez MD [address] [facility] [address] [place] [address] Assigned Heart and Vascular Provider 03/20/20 11/07/20 Rodney Natarajan MD [address] [place] [address] Assigned Surgical Provider 03/20/20 08/07/21 Luna Simons MD 420 [facility] 480 [place] [address] Assigned Cancer Care Provider 03/20/20 04/11/20 Martha White MD [address] [place] [address] [address] [place] [address] Assigned Behavioral Health Provider 03/20/20 05/02/20 Mio Mclean MD 420 [facility] 494 [place] [address] Assigned Cancer Care Provider 04/12/20 04/21/20 Ankita Park MD [address] [place] [phone] Assigned Behavioral Health Provider 05/03/20 06/29/23 Ankita Park MD [address] [place] [phone] precision printing worker 06/10/20 Mio Mclean MD 420 [facility] 494 [place] [address] Assigned Cancer Care Provider 05/10/20 07/25/20 Luna Simons MD 420 [facility] 480 [place] [address] Assigned Cancer Care Provider 04/22/20 05/09/20 Luna Simons MD 420 [facility] 480 [place] [address] Assigned Cancer Care Provider 07/26/20 06/26/21 Jose Zaragoza, BOILER HOUSE SUPERVISOR 6405 [facility] [address] Assigned Heart and Vascular Provider 11/08/20 02/04/22 Mio Mclean MD 420 [facility] [address] [place], [place] 570765 Assigned Cancer Care Provider 06/27/21 09/11/21 Luna Simons MD 420 [facility] 480 [place], [place] 881765 Assigned Cancer Care Provider 09/12/21 01/18/24 Nadja Hagen MD 2312 [facility] Floor 2, [address] [place], [place] 094944 Resident Psychiatry 04/01/22 05/13/24 Batool Atkinson, PhD LP 2450 [facility] F282 [place], [place] 728454 Psychologist Licensed Mental Health 04/01/22 Prisca Miller MD 516 [facility] 295 [place], [place] 435935 Resident Neurology 02/10/23 Jennyfer Steele APRN CURTAIN ROLLER ASSEMBLER [address], [place] [address] [place] [address] Nurse Practitioner Psychiatry 02/23/23 Jennyfer Steele APRN CURTAIN ROLLER ASSEMBLER [address], [place] [address] [place] [address] Assigned Behavioral Health Provider 06/30/23 Sadaf Apple NP Assigned PCP 07/21/23 09/18/23 [facility] [address] [place] [address] Assigned PCP 09/19/23 Yamel Saha PA-C [address] [address] Assigned Cancer Care Provider 01/19/24 04/19/24 Luna Simons MD [address] [phone] Assigned Cancer Care Provider 04/20/24 documented as of this encounter
--- OUTSIDE RECORDS SUMMARY | 2024-10-15 18:43 | XMS_ITS | Encounter Summary ---
Author Organization [facility] Address [address] [place] [address] 26867 Care Team Providers Care Instructional Technology Instructor Name Role Phone Cyndie Eisenberg NP Primary Care Provider + Rodney Natarajan MD Unavailable Luna Simons MD Unavailable Caroline Duque RN Unavailable +[phone] Martha White MD Unavailable Pedrito Ramirez MD Unavailable [phone] Rodney Natarajan MD Unavailable [phone] Luna Simons MD Unavailable Martha White MD Unavailable Mio Mclean MD Unavailable [phone] Ankita Park MD Unavailable [phone] Ankita Park MD Unavailable [phone] Mio Mclean MD Unavailable [phone] Luna Simons MD Unavailable [phone] Luna Simons MD Unavailable +[phone] Jose Zaragoza NP Unavailable Mio Mclean MD Unavailable [phone] Luna Simons MD Unavailable +[phone] Nadja Hagen MD Unavailable +[phone] Batool Atkinson PhD LP Unavailable [phone] Prisca Miller MD Unavailable +[phone] Ramin Steelen Ravi ZINC PLATE GRAINER WAFER FAB TECHNICIAN Unavailable + IvetteJennyfer vaughan APRN WAFER FAB TECHNICIAN Unavailable + Sadaf Apple NP Unavailable Unavailable Clinic - [facility] Unavailabl e Yamel Saha PA-C Unavailable +[phone] Luna Simons MD Unavailable +[phone] Encounter Details Date Type Department Care Team (Late st Contact Info) Description 11/04/[address] [facility] Cancer [address] [address] [facility] Social History Tobacco Use Types Packs/Day Years [...] Procedure [facility] Breast Center Imaging [address] 2nd [place] [address] Luna Simons MD [address] [place] [address] 09/15/2025 10:00 AM CDT Oncology Visit [facility] Cancer [address] [place] [phone] Luna Simons MD 420 [facility] 480 [place], [place] 223445 documented as of this encounter Visit Diagnoses Not on filedocumented in this encounter Additional Health Concerns Infection Onset Date Last Indicated Resolved Time Rule Out COVID-19 01/24/2023 01/24/2023 01/24/2023 10:32 PM CDT documented as of this encounter Care Teams Instructional Technology Instructor Relationship Specialty Start Date End Date Cyndie Eisenberg, KILN PULLER [address] [place] [address] PCP - General 09/25/19 Rodney Natarajan MD [address] [place] [address] 405675 General Surgery 09/25/19 Luna Simons MD [address] [place] [address] 901865 Hematology 09/25/19 Caroline Duque, RN Specialty Collar Cutter Breast Oncology 09/30/19 Martha White MD [facility] [place] [address] [address] [place] [address] ice puller 11/01/19 Pedrito Ramirez MD 6405 [facility] [address]200 [place], [place] 360145 Assigned Heart and Vascular Provider 03/20/20 11/07/20 Rodney Natarajan MD [address] [place] [address] 195 [place], [place] 192175 Assigned Surgical Provider 03/20/20 08/07/21 Luna Simons MD 420 [facility] 480 [place] [address] Assigned Cancer Care Provider 03/20/20 04/11/20 Martha White MD [facility] [address] [place], [place] 092544 Assigned Behavioral Health Provider 03/20/20 05/02/20 Mio Mclean MD [address] [address] Assigned Cancer Care Provider 04/12/20 04/21/20 Ankita Park MD [address] [place] [phone] Assigned Behavioral Health Provider 05/03/20 06/29/23 Ankita Park MD [address] [place] [phone] ice puller 06/10/20 Mio Mclean MD [address] [address] Assigned Cancer Care Provider 05/10/20 07/25/20 Luna Simons MD 420 [facility] 480 [place] [address] Assigned Cancer Care Provider 04/22/20 05/09/20 Luna Simons MD 420 [facility] [address] [place] [address] Assigned Cancer Care Provider 07/26/20 06/26/21 Jose Zaragoza, KILN PULLER [address] [place] [address] Assigned Heart and Vascular Provider 11/08/20 02/04/22 Mio Mclean MD 420 [facility] 494 [place] [address] Assigned Cancer Care Provider 06/27/21 09/11/21 Luna Simons MD 420 [facility] 480 [place] [address] Assigned Cancer Care Provider 09/12/21 01/18/24 Nadja Hagen MD [address] [place] [address] Floor 2, [address] [place], [place] 283064 Resident Psychiatry 04/01/22 05/13/24 Batool Atkinson, PhD LP [address] [facility] F282 [place], [place] 938274 Psychologist Licensed Mental Health 04/01/22 Prisca Miller MD 6 [facility] 295 [place], [place] 054585 Resident Neurology 02/10/23 Jennyfer Steele APRN WAFER FAB TECHNICIAN [facility], [place] [address] [place] [address] Nurse Practitioner Psychiatry 02/23/23 Jennyfer Steele APRN WAFER FAB TECHNICIAN [facility]2 S [facility] [address]275 [place] [address] Assigned Behavioral Health Provider 06/30/23 Sadaf Apple NP Assigned PCP 07/21/23 09/18/23 [facility] [address] [place] [address] Assigned PCP 09/19/23 Yamel Saha PA-C [address] 733585 Assigned Cancer Care Provider 01/19/24 04/19/24 Luna Simons MD [address] [address] Assigned Cancer Care Provider 04/20/24 documented as of this encounter
--- OUTSIDE RECORDS SUMMARY | 2024-10-15 18:43 | XMS_ITS | Encounter Summary ---
Author Organization [facility] Address [address] [place] [address] Care Team Providers Care Kiln Loader Name Role Phone Cyndie Eisenberg NP Primary Care Provider + Rodney Natarajan MD Unavailable [phone] Luna Simons MD Unavailable Caroilne Duque RN Unavailable [phone] Martha White MD Unavailable Pedrito Ramirez MD Unavailable [phone] Rodney Natarajan MD Unavailable +[phone] Luna Simons MD Unavailable Martha White MD Unavailable Mio Mclean MD Unavailable [phone] Ankita Park MD Unavailable [phone] Ankita Park MD Unavailable [phone] Mio Mclean MD Unavailable [phone] Luna Simons MD Unavailable +[phone] Luna Simons MD Unavailable Jose Zaragoza NP Unavailable Mio Mclean MD Unavailable [phone] Luna Simons MD Unavailable +[phone] Nadja Hagen MD Unavailable +[phone] Batool Atkinson PhD LP Unavailable [phone] Prisca Miller MD Unavailable +[phone] Jennyfer Steele APRN FUNDRAISING SALE REPRESENTATIVE Unavailable + Jennyfer Steele APRN FUNDRAISING SALE REPRESENTATIVE Unavailable + Sadaf Apple NP Unavailable Unavailable Clinic - [facility] Unavailabl e Yamel Saha PA-C Unavailable [phone] Luna Simons MD Unavailable [phone] Encounter Details Date Type Department Care Team (Late st Contact Info) Description 09/30/2019 [facility] [address] [place] [address] Caroline Duque, ASHLIE Social History Tobacco [...] 10/08/19 while in infusion. Faina Hassan CMA ([facility]) ----- Message from Charla Castillo RN sent [...] Procedure [facility] Breast [facility] Imaging [place] 909 [facility] 2nd [place] [phone] Luna Simons MD 420 [facility] 480 [place], [place] 17984455 09/15/2025 10:00 AM CDT Oncology Visit [facility] 909 [place] [phone] Luna Simons MD 420 [facility] 480 [place], [place] 40869455 documented as of this encounter Visit Diagnoses Not on filedocumented in this encounter Additional Health Concerns Infection Onset Date Last Indicated Resolved Time Rule Out COVID-19 01/24/2023 01/24/2023 01/24/2023 10:32 PM CDT documented as of this encounter Care Teams Kiln Loader Relationship Specialty Start Date End Date Cyndie Eisenberg NP [address] [place] [address] PCP - General 09/25/19 Rodney Natarajan MD 420 [facility] 195 [place], [place] 360945 General Surgery 09/25/19 Luna Simons MD 420 [facility] 480 [place], [place] 998405 Hematology 09/25/19 Caroline Duque, RN Specialty Senior Drupal Developer Breast Oncology 09/30/19 Martha White MD [address] [place], [place] [address] [place] [address] breaker unit assembler 11/01/19 Pedrito Ramirez MD 6405 [facility] [address] [place] [address] Assigned Heart and Vascular Provider 03/20/20 11/07/20 Rodney Natarajan MD 420 [facility] 195 [place], [place] 775825 Assigned Surgical Provider 03/20/20 08/07/21 Luna Simons MD 420 [facility] 480 [place], [place] 714645 Assigned Cancer Care Provider 03/20/20 04/11/20 Martha White MD [address] [place] [address] Assigned Behavioral Health Provider 03/20/20 05/02/20 Mio Mclean MD 420 [facility] 494 [place], [place] 428615 Assigned Cancer Care Provider 04/12/20 04/21/20 Ankita Park MD [facility] [place] [address] Assigned Behavioral Health Provider 05/03/20 06/29/23 Ankita Park MD [facility] [address] [address] breaker unit assembler 06/10/20 Mio Mclean MD 420 [facility] 494 [place] [address] Assigned Cancer Care Provider 05/10/20 07/25/20 Luna Simons MD 420 [facility] 480 [place] [address] Assigned Cancer Care Provider 04/22/20 05/09/20 Luna Simons MD [address] [address] Assigned Cancer Care Provider 07/26/20 06/26/21 Jose Zaragoza, BUTTON CUTTER 6405 [facility] [place] [address] Assigned Heart and Vascular Provider 11/08/20 02/04/22 Mio Mclean MD 420 [facility] 494 [place] [address] Assigned Cancer Care Provider 06/27/21 09/11/21 Luna Simons MD 420 [facility] 480 [place] [address] Assigned Cancer Care Provider 09/12/21 01/18/24 Nadja Hagen MD [address] Floor 2, [address] [place] [address] Resident Psychiatry 04/01/22 05/13/24 Batool Atkinson, PhD LP 2450 [facility] F282 [place], [place] 126054 Psychologist Licensed Mental Health 04/01/22 Prisca Miller MD 516 [facility] 295 [place], [place] 337565 Resident Neurology 02/10/23 Jennyfer Steele APRN FUNDRAISING SALE REPRESENTATIVE [address] , [place] [address] [place] [address] Nurse Practitioner Psychiatry 02/23/23 Jennyfer Steele APRN FUNDRAISING SALE REPRESENTATIVE 2312 S [facility], [place] [address] [place], [place] 742684 Assigned Behavioral Health Provider 06/30/23 Sadaf Apple NP Assigned PCP 07/21/23 09/18/23 [facility] [address] [place] [address] Assigned PCP 09/19/23 Yamel Saha PA-C 420 [facility] 480 [place], [place] 009075 Assigned Cancer Care Provider 01/19/24 04/19/24 Luna Simons MD 420 [facility] 480 [place], [place] 455205 Assigned Cancer Care Provider 04/20/24 documented as of this encounter
--- OUTSIDE RECORDS SUMMARY | 2024-10-15 18:43 | XMS_ITS | Encounter Summary ---
Author Organization [place] Address [address] [place] [address] Care Team Providers Care Art Psychotherapist Or Therapist Name Role Phone Cyndie Eisenberg NP Primary Care Provider + Rodney Natarajan MD Unavailable [phone] Luna Simons MD Unavailable [phone] Caroline Duque RN Unavailable [phone] Martha White MD Unavailable [phone] Pedrito Ramirez MD Unavailable +[phone] Rodney Natarajan MD Unavailable +[phone] Luna Simons MD Unavailable Martha White MD Unavailable Mio Mclean MD Unavailable [phone] Ankita Park MD Unavailable [phone] Ankita Park MD Unavailable +[phone] Mio Mclean MD Unavailable [phone] Luna Simons MD Unavailable +[phone] Luna Simons MD Unavailable +[phone] Jose Zaragoza NP Unavailable Mio Mclean MD Unavailable [phone] Luna Simons MD Unavailable +[phone] Nadja Hagen MD Unavailable +[phone] Batool Atkinson PhD LP Unavailable [phone] Prisca Miller MD Unavailable +[phone] Ramin Steelen Ravi SHOP STEWARD PEANUT VENDOR Unavailable + IvetteJennyfer vaughan APRN PEANUT VENDOR Unavailable + Sadaf Apple NP Unavailable Unavailable Clinic - [facility] Unavailabl e Yamel Saha PA-C Unavailable [phone] Luna Simons MD Unavailable +[phone] Encounter Details Date Type Department Care Team (Late st Contact Info) Description 01/01/2020 MyC Medical Advice [facility] [address] [address] [facility] Social History Tobacco Use Types [...] Description 09/15/2025 9:15 AM CDT Ancillary Procedure [facility] Imaging [address] 2nd [place] [address] Luna Simons MD [address] [place] [address] 09/15/2025 10:00 AM CDT Oncology Visit [facility] [address] [place] [phone] Luna Simons MD 420 [facility] 480 [place], [place] 334155 documented as of this encounter Visit Diagnoses Not on filedocumented in this encounter Additional Health Concerns Infection Onset Date Last Indicated Resolved Time Rule Out COVID-19 01/24/2023 01/24/2023 01/24/2023 10:32 PM CDT documented as of this encounter Care Teams Art Psychotherapist Or Therapist Relationship Specialty Start Date End Date Cyndie Eisenberg, OIL LEASE BUYER [address] [place] [address] PCP - General 09/25/19 Rodney Natarajan MD [address] [place] [address] 073365 General Surgery 09/25/19 Luna Simons MD [address] [place] [address] 897215 Hematology 09/25/19 Caroline Duque, RN Specialty Rv Service Technician Breast Oncology 09/30/19 Martha White MD [facility] [place] [address] [address] [place] [address] spa attendant 11/01/19 Pedrito Ramirez MD 6405 [facility] [address]200 [place], [place] 525555 Assigned Heart and Vascular Provider 03/20/20 11/07/20 Rodney Natarajan MD [address] [place] [address] 195 [place], [place] 464705 Assigned Surgical Provider 03/20/20 08/07/21 Luna Simons MD 420 [facility] 480 [place] [address] Assigned Cancer Care Provider 03/20/20 04/11/20 Martha White MD [facility]2 [address] [place], [place] 6234[address] Assigned Behavioral Health Provider 03/20/20 05/02/20 Mio Mclean MD [address] [address] Assigned Cancer Care Provider 04/12/20 04/21/20 Ankita Park MD [address] [place] [phone] Assigned Behavioral Health Provider 05/03/20 06/29/23 Ankita Park MD [address] [place] [phone] spa attendant 06/10/20 Mio Mclean MD [address] [address] Assigned Cancer Care Provider 05/10/20 07/25/20 Luna Simons MD 420 [facility] 480 [place] [address] Assigned Cancer Care Provider 04/22/20 05/09/20 Luna Simons MD 420 [facility] 480 [place] [address] Assigned Cancer Care Provider 07/26/20 06/26/21 Jose Zaragoza, OIL LEASE BUYER 6405 [facility] [place] [address] Assigned Heart and Vascular Provider 11/08/20 02/04/22 Mio Mclean MD 420 [facility] 494 [place] [address] Assigned Cancer Care Provider 06/27/21 09/11/21 Luna Simons MD 420 [facility] 480 [place] [address] Assigned Cancer Care Provider 09/12/21 01/18/24 Nadja Hagen MD [address] [place] [address] Floor 2, [address] [place], [place] 314714 Resident Psychiatry 04/01/22 05/13/24 Batool Atkinson, PhD LP 2450 [facility] F282 [place], [place] 313564 Psychologist Licensed Mental Health 04/01/22 Prisca Miller MD 6 [facility] 295 [place], [place] 58[address] Resident Neurology 02/10/23 Jennyfer Steele APRN PEANUT VENDOR [facility] [place] [address] [place] [address] Nurse Practitioner Psychiatry 02/23/23 Jennyfer Steele APRN PEANUT VENDOR [facility]2 S [facility], [facility] F275 [place] [address] Assigned Behavioral Health Provider 06/30/23 Sadaf Apple NP Assigned PCP 07/21/23 09/18/23 [facility] [address] [place] [address] Assigned PCP 09/19/23 Yamel Saha PA-C [address] 400995 Assigned Cancer Care Provider 01/19/24 04/19/24 Luna Simons MD [address] [address] Assigned Cancer Care Provider 04/20/24 documented as of this encounter
== END 2024-10-15 18:43 | disposition home or self-care (01) ==
LOC: ED 18:36
PROVIDERS: Emergency Provider Student in an Organized Health Care Education/Training Program
DX: S90.31XA Contusion of right foot, initial encounter (principal); W20.8XXA Other cause of strike by thrown, projected or falling object, initial encounter
CPT/HCPCS: 73630; 99283